=== PATIENT | female | born 1945 | race Caucasian/White ===

== ENCOUNTER → 2017-05-04 | Outpatient (CLI) | payer MEDICARE ==
--- NOTE | 2017-05-06 10:42 | P.ARTDOP ---
Arterial Doppler LOWER EXTREMITY ARTERIAL DOPPLER: DATE OF SERVICE: 05/04/2017 Reason for study: Type 2 diabetes with leg pain bilaterally. Doppler waveforms: Multiphasic bilaterally throughout. Pulse volume recording: Normal configuration. Pressure gradients: None. Ankle-brachial indices: Greater than 1 bilaterally. Toe pressures: 98 on the right, 100 on the left Impression: Normal study.
== END | disposition home or self-care (01) ==
LOC: RADUSWWP 12:47
PROVIDERS: ATTEND Family Medicine
DX: I70.223 Atherosclerosis of native arteries of extremities with rest pain, bilateral legs (principal)
CPT/HCPCS: 93923

== ENCOUNTER → 2017-05-07 | Outpatient (CLI) | payer MEDICARE ==
--- NOTE | 2017-05-07 10:56 | MM ---
Reason for exam: additional evaluation requested from prior study. Last mammogram was performed 11 months ago. History: Patient is postmenopausal, has history of other cancer at age 47, and has history of endometrial cancer at age 36. Benign cyst aspiration of the left breast. Physical Findings: Nurse did not find any significant physical abnormalities on exam. MG 3D Diag Mammo W/Cad [id number] Bilateral CC and MLO view(s) were taken. Prior study comparison: June 16, 2016, bilateral MG 3d diag mammo w/cad ABDIAZIZ. December 11, 2014, bilateral MG screening mammo w CAD. The breast tissue is almost entirely fat. Asymmetric breast tissue in the left breast. No significant new findings when compared with previous films. These results were verbally communicated with the patient and result sheet given to the patient on 05/07/17. ASSESSMENT: Benign, BI-RAD 2 RECOMMENDATION: Routine screening mammogram of both breasts in 1 year.
== END | disposition home or self-care (01) ==
LOC: RADMAMWWP 08:49
PROVIDERS: ATTEND Family Medicine
DX: R92.8 Other abnormal and inconclusive findings on diagnostic imaging of breast (principal)
CPT/HCPCS: G0204; G0279

== ENCOUNTER 2017-08-27 13:19 | Emergency (ER) | payer MEDICARE ==
[2017-08-27] MEDS ORDERED: SODIUM CHLORIDE 0.9% 500 ML IV ONE ×2 (13:42→16:17)
[2017-08-27] MEDS ORDERED: HYDROcodone/APAP 5-325MG 1 EACH TAB PO STA (13:55)
[2017-08-27 14:11] LABS: Basophils % (A) 0 %; CH 29.2; CHCM 32.5; Eosinophils % (A) 0 %; HCT 44.3 % (34.0-46.0); HDW 2.44; HGB 13.9 gm/dL (11.4-16.0); Luc % (Auto) 1; Lymphocytes # (A) 0.7 k/uL (1.0-4.8); Lymphocytes % (A) 7 %; MCH 28.5 pg (25.0-35.0); MCHC 31.5 g/dL (31.0-37.0); MCV 90.5 fL (80.0-100.0); Mean Platelet Volume 8.5; Monocytes # (A) 0.5 k/uL (0-1.0); Monocytes % (A) 5 %; Neutrophils # (A) 8.8 k/uL (1.3-7.7); Neutrophils % (A) 86 %; RBC 4.89 m/uL (3.80-5.40); RDW 14.2 % (11.5-15.5); WBC 10.3 k/uL (3.8-10.6); WBC (Perox) 10.67
[2017-08-27 14:20] LABS: ALT 29 U/L (9-52); AST 34 U/L (14-36); Alkaline Phosphatase 81 U/L (38-126); Anion Gap 17 mmol/L; Blood Urea Nitrogen 13 mg/dL (7-17); Calcium 9.6 mg/dL (8.4-10.2); Carbon Dioxide 22 mmol/L (22-30); Chloride 103 mmol/L (98-107); Glucose 260 mg/dL (74-99); Non-African American GFR(MDRD) >60 (>60 ml/min/1.73 sqM); Sodium 142 mmol/L (137-145); Total Bilirubin 1.3 mg/dL (0.2-1.3); Total Protein 7.1 g/dL (6.3-8.2)
--- NOTE | 2017-08-27 14:29 | ED ---
Fall HPI - General Chief Complaint: Fall Stated Complaint: fall Time Seen by Provider: 08/27/17 13:34 Source: patient, EMS Mode of arrival: EMS Limitations: physical limitation - History of Present Illness Initial Comments: This a 72-year-old female presents emergency from via EMS chief complaint fall. Patient states that she was coming out of her bathroom around 8:30 last night and states that she is unsure what happened. She states that she woke up on the ground and states that she cannot move. She states that she has been on the ground until a friend stopped by today. Patient states that she has low back pain, left hip pain. Patient denies headache, dizziness, chest pain or shortness breath this time. She states that she believes that she may have passed out. Patient denies any nausea, vomiting, diarrhea constipation. Denies any bowel or, bladder incontinence or retention - Related Data Home Medications Medication Instructions Recorded Confirmed oxyCODONE-APAP 10-325MG [Percocet 1 tab PO QID PRN 10/25/15 08/27/17 10-325 mg] Warfarin [Coumadin] 2 mg PO DAILY 05/26/16 08/27/17 ALPRAZolam [Xanax] 0.5 mg PO DAILY 08/27/17 08/27/17 Clotrimazole/Betameth Lotion 1 applic TOPICAL BID 08/27/17 08/27/17 [Lotrisone] Furosemide [Lasix] 20 mg PO DAILY 08/27/17 08/27/17 Insulin Degludec [Tresiba 100 unit SQ DAILY 08/27/17 08/27/17 Flextouch U-100] Lidocaine 2% Gel [Xylocaine Jelly 1 applic TOPICAL DAILY 08/27/17 08/27/17 2%] Potassium Chloride [K-Tab ER] 8 meq PO DAILY 08/27/17 08/27/17 hydrALAZINE HCL [Apresoline] 50 mg PO BID 08/27/17 08/27/17 sitaGLIPtin PHOSPHATE [Januvia] 100 mg PO DAILY 08/27/17 08/27/17 Previous Rx's Medication Instructions Recorded Metoprolol Succinate (ER) [Toprol 50 mg PO DAILY tab.er.24h 08/08/15 XL] Hydrocodone/Acetaminophen [[place] 1 tab PO Q6HR PRN #15 tab 08/27/17 5-325] Allergies Allergy/AdvReac Type Severity Reaction Status Date / Time nickel [Nickel] Allergy Rash/Hives Verified 08/27/17 15:19 vortioxetine hydrobromide Allergy Hallucinati Verified 08/27/17 15:19 [From Brintellix] ons adhesive tape AdvReac blister Verified 08/27/17 15:19 duloxetine HCl AdvReac Hallucinati Verified 08/27/17 15:19 [From Cymbalta] ons sertraline HCl [From Zoloft] AdvReac Hallucinati Verified 08/27/17 15:19 ons Review of Systems ROS Statement: Those systems with pertinent positive or pertinent negative responses have been documented in the HPI. ROS Other: All systems not noted in ROS Statement are negative. Past Medical History Past Medical History: CVA/TIA, Diabetes Mellitus Additional Past Medical History / Comment(s): CVAs- 2012 and 2014, NIDDM, recently diagnosed Factor VIII-was started on coumadin, thyroid cancer with removal, vertigo, peripheral neuropathy bilateral hands and feet, PVD, L/R heels -tx at the [facility] in the past., bowel obstructions x 2 with sx, chronic pain, urine incontinence at time, CURRENTLY USES WALKER History of Any Multi-Drug Resistant Organisms: VRE, VRE Date of last positivie culture/infection: 2008 MDRO Source:: RT KNEE Past Surgical History: Adenoidectomy, Bowel Resection, Cholecystectomy, Hysterectomy, Joint Replacement, Tonsillectomy Additional Past Surgical History / Comment(s): 10/26/15 suspension microlarygoscopy with benign bx, thyroidectomy, right TKA with revision a , left ankle surgery. 2 BOWEL SURGERIES, ORIF rt hip-07/2015, bilateral heel debridements, COLONOSCOPY Past Anesthesia/Blood Transfusion Reactions: Postoperative Nausea & Vomiting ( PONV) Additional Past Anesthesia/Blood Transfusion Reaction / Comment(s): Pt received blood after ORIF of the hip surgery Past Psychological History: Anxiety, Depression Smoking Status: Never smoker Past Alcohol Use History: None Reported Past Drug Use History: None Reported - Past Family History Father Family Medical History: Diabetes Mellitus Additional Family Medical History / Comment(s): Father is . Mother Family Medical History: Osteoarthritis (OA), Renal Disease Additional Family Medical History / Comment(s): Mother after kidney stone surgery and went to custodial. She was 90 yrs. old. Sister recently had a myocardial infarction. And may have early dementia. General Exam Limitations: no limitations General appearance: alert, in no apparent distress Head exam: Present: atraumatic, normocephalic, normal inspection Eye exam: Present: normal appearance, PERRL, EOMI. Absent: scleral icterus, conjunctival injection, periorbital swelling Neck exam: Present: normal inspection, full ROM. Absent: tenderness, meningismus, lymphadenopathy Respiratory exam: Present: normal lung sounds bilaterally. Absent: respiratory distress, wheezes, rales, rhonchi, stridor Cardiovascular Exam: Present: normal rhythm, tachycardia, normal heart sounds. Absent: systolic murmur, diastolic murmur, rubs, gallop, clicks GI/Abdominal exam: Present: soft, normal bowel sounds. Absent: distended, tenderness, guarding, rebound, rigid Extremities exam: Present: other (Tenderness to the left hip with mild discomfort with range of motion, there is no shortening or rotation, there is no tenderness to bilateral knees, lower legs. Pupils are equal bilaterally, upper extremities within normal limits) Back exam: Present: full ROM, tenderness (Moderate tenderness lumbar region), paraspinal tenderness, vertebral tenderness Neurological exam: Present: alert, oriented X3, CN II-XII intact, reflexes normal. Absent: motor sensory deficit Skin exam: Present: warm, dry, intact, normal color. Absent: rash Course Vital Signs 08/27/17 08/27/17 08/27/17 13:21 14:44 15:55 Temperature 98.2 F Pulse Rate 113 H 100 79 Respiratory 20 20 20 Rate Blood Pressure 164/88 167/90 161/88 O2 Sat by Pulse 97 97 98 Oximetry Medical Decision Making - Medical Decision Making 72-year-old female was in the emergency room for fall. Patient's labwork EKG analysis all reviewed essentially unremarkable. Patient is able to ambulate here in emergency department. She does live some discomfort because of the fall. Patient will be discharged with pain medication. Patient will follow-up with PCP and return parameters were discussed. Case discussed with Dr sellers - Lab Data Result diagrams: 08/27/17 13:00 08/27/17 13:00 Lab Results 08/27/17 08/27/17 08/27/17 Range/Units 13:00 13:00 13:00 WBC 10.3 (3.8-10.6) k/uL RBC 4.89 (3.80-5.40) m/uL Hgb 13.9 (11.4-16.0) gm/dL Hct 44.3 (34.0-46.0) % MCV 90.5 (80.0-100.0) fL MCH 28.5 (25.0-35.0) pg MCHC 31.5 (31.0-37.0) g/dL RDW 14.2 (11.5-15.5) % Plt Count 195 (150-450) k/uL Neutrophils % 86 % Lymphocytes % 7 % Monocytes % 5 % Eosinophils % 0 % Basophils % 0 % Neutrophils # 8.8 H (1.3-7.7) k/uL Lymphocytes # 0.7 L (1.0-4.8) k/uL Monocytes # 0.5 (0-1.0) k/uL Eosinophils # 0.0 (0-0.7) k/uL Basophils # 0.0 (0-0.2) k/uL Sodium 142 (137-145) mmol/L Potassium 4.0 (3.5-5.1) mmol/L Chloride 103 (98-107) mmol/L Carbon Dioxide 22 (22-30) mmol/L Anion Gap 17 mmol/L BUN 13 (7-17) mg/dL Creatinine 0.72 (0.52-1.04) mg/dL Est GFR (MDRD) Af Amer >60 (>60 ml/min/1.73 sqM) Est GFR (MDRD) Non-Af >60 (>60 ml/min/1.73 sqM) Glucose 260 H (74-99) mg/dL Calcium 9.6 (8.4-10.2) mg/dL Total Bilirubin 1.3 (0.2-1.3) mg/dL AST 34 (14-36) U/L ALT 29 (9-52) U/L Alkaline Phosphatase 81 (38-126) U/L Total Creatine Kinase (30-135) U/L CK-MB (CK-2) (0.0-2.4) ng/mL CK-MB (CK-2) Rel Index Troponin I <0.012 (0.000-0.034) ng/mL Total Protein 7.1 (6.3-8.2) g/dL Albumin 4.0 (3.5-5.0) g/dL Urine Color Urine Appearance (Clear) Urine pH (5.0-8.0) Ur Specific [place] (1.001-1.035) Urine Protein (Negative) Urine Glucose (UA) (Negative) Urine Blood (Negative) Urine Nitrite (Negative) Urine Bilirubin (Negative) Urine Urobilinogen (<2.0) mg/dL Ur Leukocyte Esterase (Negative) Urine RBC (0-5) /hpf Urine WBC (0-5) /hpf Ur Squamous Epith Cells (0-4) /hpf Urine Mucus (None) /hpf 08/27/17 08/27/17 Range/Units 13:00 15:15 WBC (3.8-10.6) k/uL RBC (3.80-5.40) m/uL Hgb (11.4-16.0) gm/dL Hct (34.0-46.0) % MCV (80.0-100.0) fL MCH (25.0-35.0) pg MCHC (31.0-37.0) g/dL RDW (11.5-15.5) % Plt Count (150-450) k/uL Neutrophils % % Lymphocytes % % Monocytes % % Eosinophils % % Basophils % % Neutrophils # (1.3-7.7) k/uL Lymphocytes # (1.0-4.8) k/uL Monocytes # (0-1.0) k/uL Eosinophils # (0-0.7) k/uL Basophils # (0-0.2) k/uL Sodium (137-145) mmol/L Potassium (3.5-5.1) mmol/L Chloride (98-107) mmol/L Carbon Dioxide (22-30) mmol/L Anion Gap mmol/L BUN (7-17) mg/dL Creatinine (0.52-1.04) mg/dL Est GFR (MDRD) Af Amer (>60 ml/min/1.73 sqM) Est GFR (MDRD) Non-Af (>60 ml/min/1.73 sqM) Glucose (74-99) mg/dL Calcium (8.4-10.2) mg/dL Total Bilirubin (0.2-1.3) mg/dL AST (14-36) U/L ALT (9-52) U/L Alkaline Phosphatase (38-126) U/L Total Creatine Kinase 522 H (30-135) U/L CK-MB (CK-2) 4.3 H* (0.0-2.4) ng/mL CK-MB (CK-2) Rel Index 0.8 Troponin I (0.000-0.034) ng/mL Total Protein (6.3-8.2) g/dL Albumin (3.5-5.0) g/dL Urine Color Yellow Urine Appearance Clear (Clear) Urine pH 5.5 (5.0-8.0) Ur Specific [place] 1.014 (1.001-1.035) Urine Protein 1+ H (Negative) Urine Glucose (UA) 4+ H (Negative) Urine Blood Moderate H (Negative) Urine Nitrite Negative (Negative) Urine Bilirubin Negative (Negative) Urine Urobilinogen <2.0 (<2.0) mg/dL Ur Leukocyte Esterase Trace H (Negative) Urine RBC <1 (0-5) /hpf Urine WBC 1 (0-5) /hpf Ur Squamous Epith Cells 2 (0-4) /hpf Urine Mucus Rare H (None) /hpf 08/27/17 14:29 EKG performed at 13:27/60 cart with a rate of 115, LA interval 168, QRS duration 76, QT/QTC 350/44 Disposition Clinical Impression: Fall, Contusion, hip, Back pain Disposition: HOME SELF-CARE Condition: Stable Instructions: Contusion in Adults (ED) Additional Instructions: Please return to the Emergency Department if symptoms worsen or any other concerns. Prescriptions: Hydrocodone/Acetaminophen [[place] 5-325] 1 tab PO Q6HR PRN #15 tab PRN Reason: Pain Referrals: Eloy Griffin MD [Primary Care Provider] - 1-2 days Time of Disposition: 16:11
--- NOTE | 2017-08-27 14:45 | XR ---
EXAMINATION TYPE: XR chest 2V DATE OF EXAM: 08/27/2017 COMPARISON: 03/03/16 HISTORY: Shortness of breath TECHNIQUE: Frontal and lateral views of the chest are obtained. FINDINGS: Scattered senescent parenchymal changes noted. Hyperinflation compatible with COPD. No evidence for infiltrate. No evidence for atelectasis. Heart size is stable. Mediastinal structures are stable and grossly unremarkable. No evidence for hilar prominence. Degenerative changes dorsal spine. IMPRESSION: 1. No evidence for acute pulmonary disease.
--- NOTE | 2017-08-27 14:47 | XR ---
EXAMINATION TYPE: XR lumbar spine 2 or 3V DATE OF EXAM: 08/27/2017 CLINICAL HISTORY: pain TECHNIQUE: Three views of the lumbar spine are submitted. COMPARISON: None. FINDINGS: There are 5 lumbar type vertebral bodies identified. The lumbar spine shows satisfactory alignment w ithout evidence of acute fracture or dislocation. Vertebral body heights are within normal Limits. degenerative disc space narrowing at L3-4, L4-5 and L5-S1. The overlying soft tissue appears unrema rkable. IMPRESSION: No acute fracture or dislocation is seen in the lumbar spine. ICD 10 NO FRACTURE, INITIAL EVALUATION
--- NOTE | 2017-08-27 14:50 | XR ---
EXAMINATION TYPE: XR Hip LT and AP Pelvis DATE OF EXAM: 08/27/2017 CLINICAL HISTORY: Pelvic and right hip pain. TECHNIQUE: A single AP view of the pelvis is obtained. Two views of the left hip are obtained. COMPARISON: None. FINDINGS: See evidence for acute fracture or dislocation. Mild degenerative joint space narrowing. Postoperativ e changes right hip. IMPRESSION: There is no acute fracture or dislocation in the pelvis or left hip.
[2017-08-27 15:18] LABS: Creatine Kinase MB 4.3 ng/mL (0.0-2.4)
[2017-08-27 15:43] LABS: Appearance,Urine Clear (Clear); Bilirubin,Urine Negative (Negative); Glucose,Urine (UA) 4+ (Negative); Leukocyte Esterase,Urine Trace (Negative); Mucus,Urine Rare /hpf; Nitrite,Urine Negative (Negative); PH, Urine 5.5 (5.0-8.0); Particle Count 2113; Protein,Urine 1+ (Negative); RBC,Urine <1 /hpf (0-5); Specific Gravity,Urine 1.014 (1.001-1.035); Squamous Epithelial Cell,Urine 2 /hpf (0-4); UA Billing (MACRO vs. MICRO) MICRO; Urobilinogen,Urine <2.0 mg/dL (<2.0); WBC,Urine 1 /hpf (0-5)
[2017-08-27 16:17] LABS: Ketones,Urine 4+ (Negative)
[2017-08-27] MEDS ORDERED: SODIUM CHLORIDE 0.9% 1,000 ML IV ONE (16:17)
[2017-08-27] MEDS ORDERED: HYDROcodone/APAP 10-325MG 1 EACH TAB PO ONE (16:20)
[2017-08-27 17:30] VITALS: BP 160/80; PULSE 70; RESP 18; TEMP 97.8
== END 2017-08-27 17:30 | disposition home or self-care (01) ==
LOC: EC 13:19
DX: S70.02XA Contusion of left hip, initial encounter (principal); R00.0 Tachycardia, unspecified; M54.5 Low back pain; E11.42 Type 2 diabetes mellitus with diabetic polyneuropathy; D66 Hereditary factor VIII deficiency; F32.9 Major depressive disorder, single episode, unspecified; F41.9 Anxiety disorder, unspecified; E89.0 Postprocedural hypothyroidism; Z79.01 Long term (current) use of anticoagulants; Z79.4 Long term (current) use of insulin; Z79.52 Long term (current) use of systemic steroids; Z79.899 Other long term (current) drug therapy; Z88.8 Allergy status to other drugs, medicaments and biological substances; Z91.09 Other allergy status, other than to drugs and biological substances; Z85.850 Personal history of malignant neoplasm of thyroid; Z86.73 Personal history of transient ischemic attack (TIA), and cerebral infarction without residual deficits; W19.XXXA Unspecified fall, initial encounter; Y93.89 Activity, other specified
CPT/HCPCS: 36415; 71020; 72100; 73502; 80053; 81001; 82550; 82553; 84484; 85025; 93005; 96360; 96361; 99284

== ENCOUNTER → 2017-11-05 | Outpatient (CLI) | payer MEDICARE ==
--- NOTE | 2017-11-05 22:37 | MR ---
MRI CERVICAL SPINE: CLINICAL HISTORY: Radiculopathy and cervical neuritis per order. Neck pain into left shoulder after f all injury 8 months ago per patient. TECHNIQUE: Multiplanar, multisequence imaging of the cervical spine is performed without IV contrast. COMPARISON: CT cervical spine August 03, 2015. FINDINGS: Sagittal images of the cervical spine show the craniocervical junction to appear within nor mal limits. The cervical and upper thoracic spinal cord is normal in course, caliber, and signal. V ertebral alignment is anatomic. The vertebral body heights are normal. There is mild to moderate di sc space narrowing at C5-C6 and C6-C7 levels. Posterior disc herniations are seen at C4-C5 through C6 -C7 levels on sagittal images. The bone marrow signal intensity is within normal limits. No significa nt spurring is seen. Axial images show C2-C3 and C3-C4 levels to appear within normal limits. Axial images at C4-C5 level show broad-based right paracentral disc protrusion mildly facing anterola teral thecal sac, bilateral neural foramina remain patent. Axial images at C5-C6 level shows broad-based right paracentral spur disc complex effacing the anteri or thecal sac, there is asymmetric mild to moderate left-sided neural foraminal narrowing. Right-side d neural foramen is patent. Axial images at C6-C7 level show central disc protrusion mildly facing anterior thecal sac, bilateral neural foramina are patent. Axial images at C7-T1 level are felt within normal limits. Thyroid gland is small in size or atrophic in appearance. It may be surgically absent. There is artif act from gas-filled prominent esophagus adjacent to trachea along the left margin at C7 level redemon strated. IMPRESSION: Fairly mild multilevel degenerative changes in the mid to lower cervical spine as detaile d above.
--- NOTE | 2017-11-05 22:41 | MR ---
EXAMINATION TYPE: MR shoulder LT wo con DATE OF EXAM: 11/05/2017 COMPARISON: NONE HISTORY: Neck pain and Left shoulder pain...Fell 8 weeks ago TECHNIQUE: Multiplanar, multisequence imaging of the left shoulder is performed without contrast. FINDINGS: Exam is suboptimal as is degraded by patient motion artifact. Rotator Cuff: There is significant partial tear probable full-thickness tear of supraspinatus tendon with tendon retraction roughly 1 cm seen on paracoronal images 9. Infraspinatus tendon is intact. Sub scapularis tendon is intact. Rotator cuff muscle bulk is preserved . Acromioclavicular Joint: Moderate spurring and joint space loss acromioclavicular joint is present. Underlying fat plane is maintained. Distal acromion morphology is unremarkable. Glenohumeral Joint: There is moderate glenohumeral joint effusion. There is joint space loss most pro minent inferiorly with mild inferior spurring. Labrum: The labrum appears grossly intact given limitation of non-arthrogram study. Biceps Tendon: The long head of biceps is in normal location within bicipital groove. Bone marrow signal: Heterogeneous changes consistent with red marrow reconversion is present. Other: No additional significant abnormality is appreciated. IMPRESSION: 1. Suboptimal study but full-thickness retracted tear supraspinatus tendon is felt present. 2. There is background moderate to borderline severe degenerative changes acromioclavicular and gleno humeral joints as detailed above.
== END | disposition home or self-care (01) ==
LOC: RADMRIMAIN 19:00
PROVIDERS: ATTEND Family Medicine
DX: S46.012A Strain of muscle(s) and tendon(s) of the rotator cuff of left shoulder, initial encounter (principal); M25.812 Other specified joint disorders, left shoulder; M47.22 Other spondylosis with radiculopathy, cervical region; M79.2 Neuralgia and neuritis, unspecified
CPT/HCPCS: 72141

== ENCOUNTER 2017-11-17 10:35 | Inpatient (IN) | payer MEDICARE ==
[2017-11-17 12:07] LABS: Glucose,Whole Blood 224 mg/dL (75-99)
--- NOTE | 2017-11-17 13:16 | XR ---
EXAMINATION TYPE: XR calcaneus 2V BILATERAL DATE OF EXAM: 11/17/2017 COMPARISON: NONE HISTORY: Osteomyelitis and bilateral heel pain. TECHNIQUE: Two-view bilateral calcaneal radiographs were obtained FINDINGS: Left: Atherosclerosis is seen of the dorsalis pedis and posterior tibial arteries and their branches. Small Achilles and plantar enthesophytes are present. Mild cortical irregularity at the ta lonavicular joint represents sequela of degenerative change. These similar changes are also seen at t he posterior tibiotalar joint. Focal soft tissue swelling is seen of the dorsal and plantar calcaneus without subcutaneous emphysema or cortical erosion. No soft tissue ulceration is seen radiographical ly. No radiopaque foreign body. No periosteal reaction. There is partial visualization of degenerativ e changes of the foot. Right: Similarly to the left small vessel atherosclerosis is also noted. Small plantar enthesophyte i s also seen. Similar degenerative changes of the tarsals, talonavicular joint and tibiotalar joint ar e present. As seen on the left there is focal soft tissue swelling of the plantar and dorsal soft tis sues overlying the calcaneus without cortical erosion or subcutaneous emphysema. No soft tissue ulcer ation is seen radiographically. No radiopaque foreign body. No periosteal reaction. IMPRESSION: 1. Bilateral localized soft tissue swelling of the dorsal and plantar soft tissues overlying the calc aneus without cortical erosion or periosteal reaction to suggest underlying osteomyelitis. No focal r adiographic skin ulceration or subcutaneous emphysema are seen. No radiopaque foreign body. 2. Bilateral small vessel atherosclerosis which may indicate peripheral arterial vascular disease. Ar terial lower sternum the ultrasound could be performed for further evaluation. 3. Moderate hindfoot and midfoot arthropathy bilaterally.
[2017-11-17 14:58] LABS: INR 1.4 (<1.2); Prothrombin Time 13.1 sec (9.0-12.0)
[2017-11-17] MEDS: oxyCODONE-APAP 10-325MG 1 EACH TAB PO PRN (15:15)
[2017-11-17] MEDS: FUROSEMIDE 20 MG TAB PO SCH (15:15)
[2017-11-17] MEDS: AMPICILLIN-SULBACTAM 1.5 GM in SODIUM CHLORIDE 0.9% 50 ML IVPB SCH (15:15)
[2017-11-17] MEDS: SODIUM CHLORIDE 0.9% 1,000 ML IV SCH (16:09)
[2017-11-17 16:56] LABS: Glucose,Whole Blood 306 mg/dL (75-99)
[2017-11-17] MEDS: HYDROmorphone 1 MG/ML 1 ML SYRINGE IVP PRN ×2 (17:44→21:41)
[2017-11-17] MEDS: INSULIN ASPART 100 UNIT/ML 1 ML 10 ML VIAL SQ SCH ×2 (17:45→21:40)
[2017-11-17] MEDS: WARFARIN 2 MG TAB PO SCH (17:47)
[2017-11-17 20:52] LABS: Glucose,Whole Blood 156 mg/dL (75-99)
[2017-11-17] MEDS: hydrALAZINE HCL 50 MG TAB PO SCH (21:40)
[2017-11-17 22:31] LABS: Hemoglobin A1C 10.2 % (4.0-6.0)
--- NOTE | 2017-11-17 23:41 | P.CONS ---
History of Present Illness - Reason for Consult Consult date: 11/17/17 - Chief Complaint Weakness and development of bilateral heel ulcers - History of Present Illness 72-year-old female was well-known to the service in the wound healing center due to nonhealing ulcerations to her heels have occurred. She relates that because the ulcerations were worsening to bilateral heels she then presented to Hospital. She was responsive significant changes in her psychosocial situation. Her sister had moved to [place] to be her cabin crew, moved back to [place] to see her grandchild. She suffered a stroke in the myocardial infarction and . She relates that several weeks ago she suffered a fall at home and did not have her communication device close and spent many hours on the floor with resultant injury to her right foot dorsum toe. She's been providing this care. Despite offloading her heels while she is in bed in the chair and not walking much she's now developed significant ulcerations to the heels. Right heel considerably worse than the left. When asked about pressure she just does not believe she's been putting pressure to the site. She is denying fevers chills rigors or sweats. Feels poorly overall. Review of Systems HEENT:Denies headache or acute visual change. Denies sinus or mouth discomforts. Denies neck stiffness or pain. Denies significant oral cavity pain. Denies difficulty on swallowing. Lungs: Denies significant shortness of breath, cough, sputum production, or hemoptysis. Cardiovascular: Denies significant shortness of breath, chest pain, chest wall pain, Feels very weak, and has no energy to walk any distance. Gastrointestinal:Denies nausea, vomiting, diarrhea, constipation, hematemesis, melena, hematochezia. No no significant change of bowel habit noticed. Musculoskeletal: denies significant myalgias or arthralgias. No new joint swelling. Denies new back pain. Skin: Bilateral heel ulcerations, as well as injury to the right foot second toe dorsum healing Neuro: Denies headache or visual change. Denies any new onset weakness or difficulty with ambulation. Denies falls or seizures. Psychiatric: Chronic anxiety Endocrine: Worsening fatigue and malaise Past Medical History Past Medical History: Blood Disorder, CVA/TIA, Diabetes Mellitus Additional Past Medical History / Comment(s): CVA-pt thinks in 2013 with L sided weakness, NIDDM type II, factor VIII-was started on coumadin, thyroid cancer with removal, vertigo, peripheral neuropathy bilateral hands and legs/ feet, PVD, recurrent L/R heels-tx at the wound healing Center in the past- pt states L heel "broke open" about 4 weeks ago and then R heel "broke open about 1.5 weeks ago and is worse than the left, past VRE infection R total knee, bowel obstructions x 2 with sx, chronic pain in back and legs/feet, urine incontinence at time, CURRENTLY USES WHEELCHAIR IN ORDER TO OFF LOAD HEELS. History of Any Multi-Drug Resistant Organisms: VRE, VRE Year Discovered:: 2008 MDRO Source:: RT KNEE Past Surgical History: Adenoidectomy, Appendectomy, Bowel Resection, Cholecystectomy, Hysterectomy, Joint Replacement, Tonsillectomy Additional Past Surgical History / Comment(s): 10/26/15 suspension microlarygoscopy with benign bx, thyroidectomy, right TKA with revision a , left ankle surgery WITH HARDWARE, 2 BOWEL SURGERIES, ORIF rt hip-07/2015, bilateral carpal tunnel releases, 1997 cardiac cath-normal, bilateral heel debridements, COLONOSCOPY, R flank "blood tumor" removed, bilateral cataract removals Past Anesthesia/Blood Transfusion Reactions: Postoperative Nausea & Vomiting ( PONV) Additional Past Anesthesia/Blood Transfusion Reaction / Comm: Pt received blood after ORIF of the hip surgery Smoking Status: Never smoker - Past Family History Father Family Medical History: Diabetes Mellitus Additional Family Medical History / Comment(s): Father is . Mother Family Medical History: Osteoarthritis (OA), Renal Disease Additional Family Medical History / Comment(s): Mother after kidney stone surgery and went to [facility]. She was 90 yrs. old. Medications and Allergies Home Medications and Allergies Comment(s): Current Medications Alprazolam (Xanax) 0.5 mg PO HS TITO Furosemide (Lasix) 20 mg PO DAILY TITO Last Admin: 11/17/17 15:15 Dose: 20 mg Hydralazine HCl (Apresoline) 50 mg PO BID TITO Last Admin: 11/17/17 21:40 Dose: 50 mg Hydromorphone HCl (Dilaudid) 1 mg IVP Q4HR PRN PRN Reason: Pain Last Admin: 11/17/17 21:41 Dose: 1 mg Ampicillin Sodium/Sulbactam (Sodium 1.5 gm/ Sodium Chloride) 50 mls @ 100 mls/ hr IVPB Q8HR [facility] Last Admin: 11/17/17 15:15 Dose: 100 mls/hr Sodium Chloride (Saline 0.9%) 1,000 mls @ 50 mls/hr IV .Q20H [facility] Last Admin: 11/17/17 16:09 Dose: 50 mls/hr Insulin Aspart (Novolog) 0 unit SQ ACHS [facility] PRN Reason: Protocol Last Admin: 11/17/17 21:40 Dose: 1 unit Levothyroxine Sodium (Synthroid) 200 mcg PO DAILY@0630 [facility] Linagliptin (Tradjenta) 5 mg PO DAILY [facility] Metoprolol Succinate (Toprol Xl) 50 mg PO DAILY [facility] Oxycodone/Acetaminophen (Percocet 10-325) 1 each PO QID PRN PRN Reason: Pain Last Admin: 11/17/17 15:15 Dose: 1 each Potassium Chloride (K-Dur 10) 10 meq PO DAILY [facility] Warfarin Sodium (Coumadin) 2 mg PO DAILY@1800 [facility] Last Admin: 11/17/17 17:47 Dose: 2 mg Home Medications Medication Instructions Recorded Confirmed Type Metoprolol Succinate (ER) [Toprol 50 mg PO DAILY tab.er.24h 08/08/15 11/17/17 Rx XL] oxyCODONE-APAP 10-325MG [Percocet 1 tab PO QID PRN 10/25/15 11/17/17 History 10-325 mg] ALPRAZolam [Xanax] 0.5 mg PO DAILY 08/27/17 11/17/17 History Clotrimazole/Betameth Lotion 1 applic TOPICAL BID 08/27/17 11/17/17 History [Lotrisone] Furosemide [Lasix] 20 mg PO DAILY 08/27/17 11/17/17 History Insulin Degludec [Tresiba 100 unit SQ DAILY 08/27/17 11/17/17 History Flextouch U-100] Lidocaine 2% Gel [Xylocaine Jelly 1 applic TOPICAL DAILY 08/27/17 11/17/17 History 2%] Potassium Chloride [K-Tab ER] 8 meq PO DAILY 08/27/17 11/17/17 History hydrALAZINE HCL [Apresoline] 50 mg PO BID 08/27/17 11/17/17 History sitaGLIPtin PHOSPHATE [Januvia] 100 mg PO DAILY 08/27/17 11/17/17 History Cephalexin [Keflex] 500 mg PO TID 11/17/17 11/17/17 History Levothyroxine Sodium [Synthroid] 200 mcg PO DAILY 11/17/17 11/17/17 History Warfarin [Coumadin] 2 mg PO DAILY 11/17/17 11/17/17 History Allergies Allergy/AdvReac Type Severity Reaction Status Date / Time nickel [Nickel] Allergy Rash/Hives Verified 11/17/17 12:06 vortioxetine hydrobromide Allergy Hallucinati Verified 11/17/17 12:06 [From Brintellix] ons adhesive tape AdvReac blister Verified 11/17/17 12:06 duloxetine HCl AdvReac Hallucinati Verified 11/17/17 12:06 [From Cymbalta] ons sertraline HCl [From Zoloft] AdvReac Hallucinati Verified 11/17/17 12:06 ons Physical Exam Vitals: Vital Signs Temp Pulse Resp BP Pulse Ox 11/17/17 23:24 98.1 F 90 17 109/64 97 11/17/17 21:45 78 20 107/68 96 11/17/17 15:00 97.6 F 92 16 109/65 98 11/17/17 11:50 97.1 F L 99 16 132/70 97 Intake and Output 11/17/17 11/17/17 11/18/17 14:59 22:59 06:59 Intake Total 480 Balance 480 Intake: Oral 480 Other: # Voids 2 3 Weight 89 kg Patient Weight 11/18/17 06:59 Weight 89 kg HEENT: Anicteric conjunctiva are pink and moist nasal mucosa grossly intact without significant lesions, there is no thrush. Neck: The neck is supple without significant lymphadenopathy or thyromegaly. Lungs: Good bilateral air entry without significant crackles or wheezing. There is no significant bronchial sounds. There is no egophony or dullness. Heart: Regular rate and rhythm with an audible S1-S2, no S3 no S4. There is no significant murmur click or rub, PMI was nondisplaced. Abdomen: Positive bowel sounds soft and nontender without palpable masses or organomegaly. There was no guarding or rebound. Extremities: Upper shoulders reveal evidence of no lesions. Current IV site is intact. Lower extremity reveal evidence of minimal edema. Left heel has evidence of ulceration as per the nursing photography of 2 x 2 by 0.1. Right heel is a more extensive ulceration of 4 x 4 x 0.2 cm. Patient has some neuropathy in the sites are not very tender. There is fat layer exposed to the right heel ulcer. Neuro: Awake alert oriented to person place and time. There are no acute new gross focal sensory motor deficits. Results Labs: Abnormal Lab Results - Last 24 Hours (Table) 11/17/17 11/17/17 11/17/17 Range/Units 12:05 12:11 12:11 ESR 23 H (0-20) mm/hr PT 13.1 H (9.0-12.0) sec INR 1.4 H (<1.2) POC Glucose (mg/dL) 224 H (75-99) mg/dL 11/17/17 11/17/17 Range/Units 16:53 20:50 ESR (0-20) mm/hr PT (9.0-12.0) sec INR (<1.2) POC Glucose (mg/dL) 306 H 156 H (75-99) mg/dL Laboratory Results ESR 23 mm/hr (0-20) H 11/17/17 12:11 PT 13.1 sec (9.0-12.0) H 11/17/17 12:11 INR 1.4 (<1.2) H 11/17/17 12:11 POC Glucose (mg/dL) 156 mg/dL (75-99) H 11/17/17 20:50 POC Glu [facility] Agent ID Justine Orellana 11/17/17 20:50 Assessment and Plan (1) Diabetic foot ulcer associated with type 2 diabetes mellitus Current Visit: No Status: Acute Priority: Medium Code(s): E11.621 - TYPE 2 DIABETES MELLITUS WITH FOOT ULCER SNOMED Code(s): 274252362 (2) Diabetic ulcer of left foot associated with type 2 diabetes mellitus, with fat layer exposed Narrative/Plan: 72-year-old female relates to a fall several weeks ago with resultant injury to the right foot second toe on the dorsum. Small eschar is noted and appears to be healing. Patient is unclear of how she developed a bilateral heel ulcerations, right consequently worsen the left. Is likely from pressure given the location and the appearance. She does wear some offloading boots at home. Concern that they are worn and not protecting her. She also has very poor control of her diabetes which may be also worsening this problem. We'll work with the discharge planners at discharge to ensure she has adequate offloading boots at home for when she is laying in bed. She does not do well with air boots. Pain control appears to be adequate. She is not having fever or leukocytosis at this time. Antimicrobial therapy with Unasyn is being given while cultures are process. Unclear if the discharge plan will be to extended-care or better home environment. Current Visit: Yes Status: Acute Code(s): E11.621 - TYPE 2 DIABETES MELLITUS WITH FOOT ULCER; L97.522 - NON-PRS CHRONIC ULCER OTH PRT LEFT FOOT W FAT LAYER EXPOSED SNOMED Code(s): 7404796465621
[2017-11-18] MEDS: AMPICILLIN-SULBACTAM 1.5 GM in SODIUM CHLORIDE 0.9% 50 ML IVPB SCH ×4 (01:02→23:18)
[2017-11-18] MEDS: HYDROmorphone 1 MG/ML 1 ML SYRINGE IVP PRN ×4 (02:59→21:44)
[2017-11-18] MEDS: LEVOTHYROXINE 100 MCG TAB PO SCH (06:16)
[2017-11-18 07:40] LABS: Glucose,Whole Blood 161 mg/dL (75-99)
[2017-11-18] MEDS: METOPROLOL SUCCINATE (ER) 50 MG TAB.ER.24H PO SCH (08:03)
[2017-11-18] MEDS: oxyCODONE-APAP 10-325MG 1 EACH TAB PO PRN ×2 (08:03→18:56)
[2017-11-18] MEDS: SODIUM CHLORIDE 0.9% 1,000 ML IV SCH (08:04)
[2017-11-18] MEDS: INSULIN ASPART 100 UNIT/ML 1 ML 10 ML VIAL SQ SCH ×4 (08:04→21:42)
[2017-11-18] MEDS: hydrALAZINE HCL 50 MG TAB PO SCH ×2 (08:05→21:48)
[2017-11-18] MEDS: POTASSIUM CHLORIDE ER 10 MEQ TAB.ER.PRT PO SCH (08:05)
[2017-11-18] MEDS: LINAGLIPTIN 5 MG TABLET PO SCH (08:05)
[2017-11-18] MEDS: FUROSEMIDE 20 MG TAB PO SCH (08:05)
[2017-11-18 09:30] LABS: Basophils % (A) 0 %; Eosinophils # (A) 0.2 k/uL (0-0.7); Eosinophils % (A) 4 %; HCT 36.5 % (34.0-46.0); HGB 11.4 gm/dL (11.4-16.0); Lymphocytes # (A) 1.8 k/uL (1.0-4.8); Lymphocytes % (A) 34 %; MCH 28.1 pg (25.0-35.0); MCHC 31.1 g/dL (31.0-37.0); MCV 90.3 fL (80.0-100.0); Mean Platelet Volume 7.8; Monocytes # (A) 0.3 k/uL (0-1.0); Monocytes % (A) 6 %; Neutrophils # (A) 2.9 k/uL (1.3-7.7); Neutrophils % (A) 54 %; Platelet Count 200 k/uL (150-450); RBC 4.04 m/uL (3.80-5.40); RDW 12.6 % (11.5-15.5); WBC 5.3 k/uL (3.8-10.6)
[2017-11-18 09:57] LABS: ALT 29 U/L (9-52); AST 17 U/L (14-36); Albumin 2.9 g/dL (3.5-5.0); Alkaline Phosphatase 69 U/L (38-126); Anion Gap 6 mmol/L; Blood Urea Nitrogen 27 mg/dL (7-17); Calcium 9.1 mg/dL (8.4-10.2); Carbon Dioxide 31 mmol/L (22-30); Chloride 101 mmol/L (98-107); Glucose 215 mg/dL (74-99); Potassium 4.2 mmol/L (3.5-5.1); Sodium 138 mmol/L (137-145); Total Bilirubin 0.4 mg/dL (0.2-1.3); Total Protein 5.8 g/dL (6.3-8.2)
[2017-11-18 12:12] LABS: Glucose,Whole Blood 230 mg/dL (75-99)
--- NOTE | 2017-11-18 13:23 | NM ---
EXAMINATION TYPE: NM bone 3 phase DATE OF EXAM: 11/18/2017 COMPARISON: Bilateral calcaneal x-rays from one day earlier. Three-phase bone scan June 08, 2014 HISTORY: Nonhealing wound bilateral heels, history of diabetes. Triple phase bone scintigraphy was performed following the injection of28.9 mCi Tc 99m MDP. Immediat e images and 5 hours post injection images acquired. FINDINGS: Dynamic arterial as well as soft tissue phase images show increased uptake bilateral hindfoot centere d at calcanei right greater than left. Soft tissue phase also shows increase uptake midfoot medial as pect not clearly identified on arterial phase. Delayed phased images show no significant increase upt abbi bilaterally at area of clinical concern in the calcanei. Mild uptake is not out of proportion to areas of uptake seen throughout both feet at forefoot and midfoot levels. There is focus of abnormal uptake near base of first metatarsal on the left which appears more medial to the area of soft tissue uptake. IMPRESSION: There is soft tissue infection involving bilateral heels. No convincing scintigraphic kiara dence for acute osteomyelitis in either foot.
--- NOTE | 2017-11-18 13:40 | XR ---
EXAMINATION TYPE: XR abdomen 2V DATE OF EXAM: 11/18/2017 CLINICAL HISTORY: Central abdominal pain with constipation TECHNIQUE: Supine and upright views of the abdomen are obtained. COMPARISON: Abdominal x-ray March 05, 2016. FINDINGS: Scattered gas is seen in non-distended small bowel loops. Gas and fecal material is seen in non-distended colon and rectum. Amount of fecal material is prominent in the right colon. Cholecys tectomy clips are seen. There is 6 mm round density near right 12th rib of uncertain etiology as appe ars to be medial to the upper portion of right kidney. Scattered pelvic phleboliths are seen. There a re surgical change to right proximal femur partially imaged. No pneumoperitoneum is noted. Visualized lung bases are clear. IMPRESSION: Overall nonobstructive bowel gas pattern. Perhaps mild to moderate proximal colonic feca l stasis redemonstrated.
--- NOTE | 2017-11-18 15:46 | P.GSCN ---
<Nimo Green - Last Filed: 11/18/17 15:37> History of Present Illness Consult date: 11/18/17 Reason for Consult: Abdominal pain constipation History of present illness: 72-year-old female being seen at the request of the attending for a surgical eval for abdominal pain patient reports for the past several months has been having generalized lower abdominal pain. States that she has a history of constipation. Patient states it can be several days before she has a bowel movement. Patient currently is denying abdominal pain when questioning. Patient is a poor historian gives a history of having an appendectomy 20-30 years prior with bowel surgery is not certain of the details. Reviewing medical records patient has had cholecystectomy, appendectomy, tonsillectomy, hysterectomy Currently patients being followed by infectious disease for ulcerations to the bilateral heels that are nonhealing and has been followed in the wound care center abdominal x-ray today which shows nonobstructive bowel gas pattern. 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 History of Any Multi-Drug Resistant Organisms: VRE, VRE Year Discovered:: 2008 MDRO Source:: RT KNEE Past Surgical History: Adenoidectomy, Appendectomy, Bowel Resection, Cholecystectomy, Hysterectomy, Joint Replacement, Tonsillectomy Additional Past Surgical History / Comment(s): 10/26/15 suspension microlarygoscopy with benign bx, thyroidectomy, right TKA with revision a , left ankle surgery WITH HARDWARE, 2 BOWEL SURGERIES, ORIF rt hip-07/2015, bilateral carpal tunnel releases, 1997 cardiac cath-normal, bilateral heel debridements, COLONOSCOPY, R flank "blood tumor" removed, bilateral cataract removals Past Anesthesia/Blood Transfusion Reactions: Postoperative Nausea & Vomiting ( PONV) Additional Past Anesthesia/Blood Transfusion Reaction / Comm: Pt received blood after ORIF of the hip surgery Smoking Status: Never smoker - Past Family History Father Family Medical History: Diabetes Mellitus Additional Family Medical History / Comment(s): Father is . Mother Family Medical History: Osteoarthritis (OA), Renal Disease Additional Family Medical History / Comment(s): Mother after kidney stone surgery and went to custodial. She was 90 yrs. old. Medications and Allergies Home Medications Medication Instructions Recorded Confirmed Type Metoprolol Succinate (ER) [Toprol 50 mg PO DAILY tab.er.24h 08/08/15 11/17/17 Rx XL] oxyCODONE-APAP 10-325MG [Percocet 1 tab PO QID PRN 10/25/15 11/17/17 History 10-325 mg] ALPRAZolam [Xanax] 0.5 mg PO DAILY 08/27/17 11/17/17 History Clotrimazole/Betameth Lotion 1 applic TOPICAL BID 08/27/17 11/17/17 History [Lotrisone] Furosemide [Lasix] 20 mg PO DAILY 08/27/17 11/17/17 History Insulin Degludec [Tresiba 100 unit SQ DAILY 08/27/17 11/17/17 History Flextouch U-100] Lidocaine 2% Gel [Xylocaine Jelly 1 applic TOPICAL DAILY 08/27/17 11/17/17 History 2%] Potassium Chloride [K-Tab ER] 8 meq PO DAILY 08/27/17 11/17/17 History hydrALAZINE HCL [Apresoline] 50 mg PO BID 08/27/17 11/17/17 History sitaGLIPtin PHOSPHATE [Januvia] 100 mg PO DAILY 08/27/17 11/17/17 History Cephalexin [Keflex] 500 mg PO TID 11/17/17 11/17/17 History Levothyroxine Sodium [Synthroid] 200 mcg PO DAILY 11/17/17 11/17/17 History Warfarin [Coumadin] 2 mg PO DAILY 11/17/17 11/17/17 History Allergies Allergy/AdvReac Type Severity Reaction Status Date / Time nickel [Nickel] Allergy Rash/Hives Verified 11/17/17 12:06 vortioxetine hydrobromide Allergy Hallucinati Verified 11/17/17 12:06 [From Brintellix] ons adhesive tape AdvReac blister Verified 11/17/17 12:06 duloxetine HCl AdvReac Hallucinati Verified 11/17/17 12:06 [From Cymbalta] ons sertraline HCl [From Zoloft] AdvReac Hallucinati Verified 11/17/17 12:06 ons Surgical - Exam Vital Signs Temp Pulse Resp BP Pulse Ox 97.1 F L 99 16 132/70 97 11/17/17 11:50 11/17/17 11:50 11/17/17 11:50 11/17/17 11:50 11/17/17 11:50 Physical exam 72-year-old female looking older than stated age currently sitting up taking a diet reports no nausea vomiting currently denying abdominal pain when questioning Lungs adequate air movement bilaterally no shortness of breath noted Heart S1-S2 audible regular Abdomen soft nondistended and bowel tones present no reports of nausea vomiting states had a bowel movement urinating no difficulty Extremities med boots on to the bilateral lower extremities Results - Labs 11/18/17 09:07 11/18/17 09:07 Abnormal Lab Results - Last 24 Hours (Table) 11/17/17 11/17/17 11/17/17 Range/Units 12:11 16:53 20:50 Carbon Dioxide (22-30) mmol/L BUN (7-17) mg/dL Glucose (74-99) mg/dL POC Glucose (mg/dL) 306 H 156 H (75-99) mg/dL Hemoglobin A1c 10.2 H (4.0-6.0) % Total Protein (6.3-8.2) g/dL Albumin (3.5-5.0) g/dL 11/18/17 11/18/17 11/18/17 Range/Units 07:35 09:07 12:02 Carbon Dioxide 31 H (22-30) mmol/L BUN 27 H (7-17) mg/dL Glucose 215 H (74-99) mg/dL POC Glucose (mg/dL) 161 H 230 H (75-99) mg/dL Hemoglobin A1c (4.0-6.0) % Total Protein 5.8 L (6.3-8.2) g/dL Albumin 2.9 L (3.5-5.0) g/dL Microbiology - Last 24 Hours (Table) 11/17/17 12:11 Blood Culture - Preliminary Blood No Growth after 24 hours Diabetes panel 11/17/17 11/18/17 Range/Units 12:11 09:07 Sodium 138 (137-145) mmol/L Potassium 4.2 (3.5-5.1) mmol/L Chloride 101 (98-107) mmol/L Carbon Dioxide 31 H (22-30) mmol/L BUN 27 H (7-17) mg/dL Creatinine 0.84 (0.52-1.04) mg/dL Glucose 215 H (74-99) mg/dL Hemoglobin A1c 10.2 H (4.0-6.0) % Calcium 9.1 (8.4-10.2) mg/dL AST 17 (14-36) U/L ALT 29 (9-52) U/L Alkaline Phosphatase 69 (38-126) U/L Total Protein 5.8 L (6.3-8.2) g/dL Albumin 2.9 L (3.5-5.0) g/dL Calcium panel 11/18/17 Range/Units 09:07 Calcium 9.1 (8.4-10.2) mg/dL Albumin 2.9 L (3.5-5.0) g/dL Pituitary panel 11/18/17 Range/Units 09:07 Sodium 138 (137-145) mmol/L Potassium 4.2 (3.5-5.1) mmol/L Chloride 101 (98-107) mmol/L Carbon Dioxide 31 H (22-30) mmol/L BUN 27 H (7-17) mg/dL Creatinine 0.84 (0.52-1.04) mg/dL Glucose 215 H (74-99) mg/dL Calcium 9.1 (8.4-10.2) mg/dL Adrenal panel 11/18/17 Range/Units 09:07 Sodium 138 (137-145) mmol/L Potassium 4.2 (3.5-5.1) mmol/L Chloride 101 (98-107) mmol/L Carbon Dioxide 31 H (22-30) mmol/L BUN 27 H (7-17) mg/dL Creatinine 0.84 (0.52-1.04) mg/dL Glucose 215 H (74-99) mg/dL Calcium 9.1 (8.4-10.2) mg/dL Total Bilirubin 0.4 (0.2-1.3) mg/dL AST 17 (14-36) U/L ALT 29 (9-52) U/L Alkaline Phosphatase 69 (38-126) U/L Total Protein 5.8 L (6.3-8.2) g/dL Albumin 2.9 L (3.5-5.0) g/dL Assessment and Plan Assessment: Impression Abdominal pain suspect due to diverticulosis Chronic constipation Debility limited mobility Abdominal x-ray shows moderate fecal stasis History of a prior CVA left side weakness Factor v111 on Coumadin Type 2 diabetes Diabetic foot ulcer associated with type 2 diabetes Plan No evidence of an acute surgical abdomen Start bowel stimulant regime Low fiber diet Will follow with you further surgical recommendations DVT and GI prophylaxis The above impression and plan of care have been discussed and directed by signing physician. Nimo Green nurse practitioner acting as scribe for signing physician. <Belinda Brambila - Last Filed: 11/18/17 21:09> Review of Systems REVIEW OF ORGAN SYSTEMS: CONSTITUTIONAL: Denies any fever or chills. Denies recent weight loss or weight gain. HEENT: Denies any trouble with vision, hearing or nosebleeds. No difficulty swallowing. LYMPHATIC: The patient denies any lumps and bumps around the neck. ENDOCRINE: Denies any thyroid disorders. Denies any blood sugar glucose intolerance. RESPIRATORY: Denies pneumonia. Denies any troubles with breathing or dyspnea on exertion. CARDIOVASCULAR: Denies any chest pain, palpitations, or recent heart attacks. GASTROINTESTINAL: Denies heart burn. Has chronic constipation. GENITOURINARY: Denies any blood in urine or increased urinary frequency. MUSCULOSKELETAL: Has back pain, stiffness, joint arthritis. History of osteomyelitis. NEUROLOGIC: Denies any numbness or tingling along the distal extremities. No seizure disorders or headaches. PSYCHIATRIC: Denies depression or suidical ideation. HEMATOLOGIC: Denies any abnormal bleeding or bruising. BREASTS: Denies any breast lumps, pain or nipple discharge. Surgical - Exam Vital Signs Temp Pulse Resp BP Pulse Ox 97.1 F L 99 16 132/70 97 11/17/17 11:50 11/17/17 11:50 11/17/17 11:50 11/17/17 11:50 11/17/17 11:50 GENERAL: Well developed and in no acute distress. Pleasant. HEENT: No sclera icterus. Extraocular movements grossly intact. Moist buccal mucosa. Head is atraumatic, normocephalic. Hears conversational speech. No nasal drainage. NECK: Supple without lymphadenopathy. CHEST: Non-labored respirations and equal bilateral excursions. CARDIOVASCULAR: Regular rate and rhythm. Palpable 2+ radial pulses. ABDOMEN: Soft, Nondistended. Tender along the bilateral lower abdomen. MUSCULOSKELETAL: No clubbing or edema. Kilobits present. NEUROLOGIC: No focal or lateralizing signs. PSYCH: Appropriate affect. Alert and oriented to person, place and time. SKIN: Good skin turgor. Well perfused. Results - Labs 11/18/17 09:07 11/18/17 09:07 Abnormal Lab Results - Last 24 Hours (Table) 11/17/17 11/18/17 11/18/17 Range/Units 12:11 07:35 09:07 PT (9.0-12.0) sec INR (<1.2) Carbon Dioxide 31 H (22-30) mmol/L BUN 27 H (7-17) mg/dL Glucose 215 H (74-99) mg/dL POC Glucose (mg/dL) 161 H (75-99) mg/dL Hemoglobin A1c 10.2 H (4.0-6.0) % Total Protein 5.8 L (6.3-8.2) g/dL Albumin 2.9 L (3.5-5.0) g/dL 11/18/17 11/18/17 11/18/17 Range/Units 12:02 17:14 18:17 PT 13.2 H (9.0-12.0) sec INR 1.4 H (<1.2) Carbon Dioxide (22-30) mmol/L BUN (7-17) mg/dL Glucose (74-99) mg/dL POC Glucose (mg/dL) 230 H 161 H (75-99) mg/dL Hemoglobin A1c (4.0-6.0) % Total Protein (6.3-8.2) g/dL Albumin (3.5-5.0) g/dL Microbiology - Last 24 Hours (Table) 11/17/17 12:11 Blood Culture - Preliminary Blood No Growth after 24 hours Diabetes panel 11/17/17 11/18/17 Range/Units 12:11 09:07 Sodium 138 (137-145) mmol/L Potassium 4.2 (3.5-5.1) mmol/L Chloride 101 (98-107) mmol/L Carbon Dioxide 31 H (22-30) mmol/L BUN 27 H (7-17) mg/dL Creatinine 0.84 (0.52-1.04) mg/dL Glucose 215 H (74-99) mg/dL Hemoglobin A1c 10.2 H (4.0-6.0) % Calcium 9.1 (8.4-10.2) mg/dL AST 17 (14-36) U/L ALT 29 (9-52) U/L Alkaline Phosphatase 69 (38-126) U/L Total Protein 5.8 L (6.3-8.2) g/dL Albumin 2.9 L (3.5-5.0) g/dL Calcium panel 11/18/17 Range/Units 09:07 Calcium 9.1 (8.4-10.2) mg/dL Albumin 2.9 L (3.5-5.0) g/dL Pituitary panel 11/18/17 Range/Units 09:07 Sodium 138 (137-145) mmol/L Potassium 4.2 (3.5-5.1) mmol/L Chloride 101 (98-107) mmol/L Carbon Dioxide 31 H (22-30) mmol/L BUN 27 H (7-17) mg/dL Creatinine 0.84 (0.52-1.04) mg/dL Glucose 215 H (74-99) mg/dL Calcium 9.1 (8.4-10.2) mg/dL Adrenal panel 11/18/17 Range/Units 09:07 Sodium 138 (137-145) mmol/L Potassium 4.2 (3.5-5.1) mmol/L Chloride 101 (98-107) mmol/L Carbon Dioxide 31 H (22-30) mmol/L BUN 27 H (7-17) mg/dL Creatinine 0.84 (0.52-1.04) mg/dL Glucose 215 H (74-99) mg/dL Calcium 9.1 (8.4-10.2) mg/dL Total Bilirubin 0.4 (0.2-1.3) mg/dL AST 17 (14-36) U/L ALT 29 (9-52) U/L Alkaline Phosphatase 69 (38-126) U/L Total Protein 5.8 L (6.3-8.2) g/dL Albumin 2.9 L (3.5-5.0) g/dL - Imaging Abdominal x-ray: report reviewed, image reviewed CT scan - abdomen: image reviewed CT scan - pelvis: image reviewed (Findings are consistent with moderate fecal bolus and potential impactions rectum. No signs of bowel obstruction I personally reviewed her films) Assessment and Plan (1) Bilateral lower abdominal pain Current Visit: Yes Status: Acute Code(s): R10.31 - RIGHT LOWER QUADRANT PAIN ; R10.32 - LEFT LOWER QUADRANT PAIN SNOMED Code(s): 93393086 (2) Chronic constipation Current Visit: Yes Status: Acute Code(s): K59.09 - OTHER CONSTIPATION SNOMED Code(s): 447697804 (3) Osteomyelitis of right foot Current Visit: No Status: Acute Code(s): M86.9 - OSTEOMYELITIS, UNSPECIFIED SNOMED Code(s): 2828459023366918 Plan: 1. Review of her history, she reports having multiple abdominal surgeries in the past for perforated appendix and perforated colon. These findings may have been from prior diverticulitis attacks. I have recommended a CT of the abdomen and pelvis. Separately, she has been able to tolerate regular diet. 2. No acute surgical intervention at this time. 3. Her computed tomography scan was reviewed consistent with a rectal impaction. Recommend enemas. 4. Recommend bowel regimen. Time with Patient: Greater than 30
[2017-11-18] MEDS ORDERED: BISACODYL 5 MG TABLET.DR PO PRN (15:47)
[2017-11-18] MEDS ORDERED: RX INFO: IV CONTRAST WAS GIVEN 1 EACH MISC MISCELLANE PRN (17:00)
[2017-11-18 17:47] LABS: Glucose,Whole Blood 161 mg/dL (75-99)
[2017-11-18 18:37] LABS: INR 1.4 (<1.2); Prothrombin Time 13.2 sec (9.0-12.0)
[2017-11-18] MEDS: IOHEXOL 350 MG/ML 25 ML BOTTLE (ORAL USE) PO PRN ×2 (18:47→20:02)
[2017-11-18] MEDS: WARFARIN 2 MG TAB PO SCH (18:57)
--- NOTE | 2017-11-18 21:05 | CT ---
EXAMINATION TYPE: CT abdomen pelvis w con DATE OF EXAM: 11/18/2017 COMPARISON: 03/19/2011 HISTORY: Mid to lower abdominal pain. CT DLP: 1748 mGycm Automated exposure control for dose reduction was used. TECHNIQUE: Helical acquisition of images was performed from the lung bases through the pelvis. CONTRAST: Performed with Oral Contrast and with IV Contrast, patient injected with 100 mL of Omnipaque 300. FINDINGS: Lung bases are clear. There is no pleural effusion. Heart size is normal. There are clips from cholecystectomy. Bile ducts are not dilated. I see no focal liver defect. Spleen and pancreas appear normal. There is no adrenal mass. There are small bilateral renal cortical cysts. There is no hydronephrosis. There is no retroperitoneal adenopathy. There is no ascites. There is some retained fecal material i n the rectum. Bladder distends smoothly. There is a right hip nailing. I see no intestinal wall thick ening. There are no dilated loops. There are spondylotic changes in the lumbar spine.: IMPRESSION: CHOLECYSTECTOMY. NO DILATED DUCTS. SMALL RENAL CYSTS. MILD CONSTIPATION. NO ADVERSE CHANGE COMPARED TO OLD EXAM.
[2017-11-18 21:08] LABS: Glucose,Whole Blood 200 mg/dL (75-99)
[2017-11-18] MEDS: SENNOSIDES 8.6 MG TAB PO SCH (21:28)
[2017-11-18] MEDS ORDERED: MAGNESIUM HYDROXIDE 2,400 MG/10 ML CUP PO ONE (21:30)
[2017-11-18] MEDS: ALPRAZolam 0.5 MG TAB PO SCH (21:42)
[2017-11-18] MEDS: POLYETHYLENE GLYCOL 3350 17 GM POWD.PACK PO SCH (21:43)
--- NOTE | 2017-11-18 23:44 | P.PN ---
Subjective Progress Note Date: 11/18/17 Principal diagnosis: Weakness 72-year-old female was well-known to the service in the wound healing center due to nonhealing ulcerations to her heels have occurred. She relates that because the ulcerations were worsening to bilateral heels she then presented to Hospital. She was responsive significant changes in her psychosocial situation. Her sister had moved to [place] to be her greige goods examiner, moved back to [place] to see her grandchild. She suffered a stroke in the myocardial infarction and . She relates that several weeks ago she suffered a fall at home and did not have her communication device close and spent many hours on the floor with resultant injury to her right foot dorsum toe. She's been providing this care. Despite offloading her heels while she is in bed in the chair and not walking much she's now developed significant ulcerations to the heels. Right heel considerably worse than the left. When asked about pressure she just does not believe she's been putting pressure to the site. She is denying fevers chills rigors or sweats. Feels poorly overall. Into the room and the patient does have new foam padded heel protectors. They' re not in place. She's laying in bed with her legs crossed with the heel directly on the mattress. Upon asking her if she sees any difficulty she was not able to articulate the fact that she was not offloading her heels. Objective - Vital Signs Vital signs: Vital Signs Temp 97.6 F 11/18/17 22:55 Pulse 86 11/18/17 22:55 Resp 18 11/18/17 22:55 BP 109/72 11/18/17 22:55 Pulse Ox 97 11/18/17 22:55 Intake & Output 11/18/17 11/18/17 11/19/17 06:59 18:59 06:59 Intake Total 480 Balance 480 Weight 89 kg Intake: Oral 480 Other: Voiding Method Bedside Commode # Voids 4 2 2 # Bowel Movements 0 - Exam HEENT: Anicteric conjunctiva are pink and moist nasal mucosa grossly intact without significant lesions, there is no thrush. Neck: The neck is supple without significant lymphadenopathy or thyromegaly. Lungs: Good bilateral air entry without significant crackles or wheezing. There is no significant bronchial sounds. There is no egophony or dullness. Heart: Regular rate and rhythm with an audible S1-S2, no S3 no S4. There is no significant murmur click or rub, PMI was nondisplaced. Abdomen: Positive bowel sounds soft and nontender without palpable masses or organomegaly. There was no guarding or rebound. Extremities: Upper shoulders reveal evidence of no lesions. Current IV site is intact. Lower extremity reveal evidence of minimal edema. Left heel has evidence of ulceration as per the nursing photography of 2 x 2 by 0.1. Right heel is a more extensive ulceration of 4 x 4 x 0.2 cm. Patient has some neuropathy in the sites are not very tender. There is fat layer exposed to the right heel ulcer. Neuro: Awake alert oriented to person place and time. There are no acute new gross focal sensory motor deficits. - Labs CBC & Chem 7: 11/18/17 09:07 11/18/17 09:07 Labs: Abnormal Lab Results - Last 24 Hours (Table) 11/17/17 11/18/17 11/18/17 Range/Units 12:11 07:35 09:07 PT (9.0-12.0) sec INR (<1.2) Carbon Dioxide 31 H (22-30) mmol/L BUN 27 H (7-17) mg/dL Glucose 215 H (74-99) mg/dL POC Glucose (mg/dL) 161 H (75-99) mg/dL Hemoglobin A1c 10.2 H (4.0-6.0) % Total Protein 5.8 L (6.3-8.2) g/dL Albumin 2.9 L (3.5-5.0) g/dL 11/18/17 11/18/17 11/18/17 Range/Units 12:02 17:14 18:17 PT 13.2 H (9.0-12.0) sec INR 1.4 H (<1.2) Carbon Dioxide (22-30) mmol/L BUN (7-17) mg/dL Glucose (74-99) mg/dL POC Glucose (mg/dL) 230 H 161 H (75-99) mg/dL Hemoglobin A1c (4.0-6.0) % Total Protein (6.3-8.2) g/dL Albumin (3.5-5.0) g/dL 11/18/17 Range/Units 21:06 PT (9.0-12.0) sec INR (<1.2) Carbon Dioxide (22-30) mmol/L BUN (7-17) mg/dL Glucose (74-99) mg/dL POC Glucose (mg/dL) 200 H (75-99) mg/dL Hemoglobin A1c (4.0-6.0) % Total Protein (6.3-8.2) g/dL Albumin (3.5-5.0) g/dL Microbiology - Last 24 Hours (Table) 11/17/17 12:11 Blood Culture - Preliminary Blood No Growth after 24 hours Laboratory Results WBC 5.3 k/uL (3.8-10.6) 11/18/17 09:07 RBC 4.04 m/uL (3.80-5.40) 11/18/17 09:07 Hgb 11.4 gm/dL (11.4-16.0) 11/18/17 09:07 Hct 36.5 % (34.0-46.0) 11/18/17 09:07 MCV 90.3 fL (80.0-100.0) 11/18/17 09:07 MCH 28.1 pg (25.0-35.0) 11/18/17 09:07 MCHC 31.1 g/dL (31.0-37.0) 11/18/17 09:07 RDW 12.6 % (11.5-15.5) 11/18/17 09:07 Plt Count 200 k/uL (150-450) 11/18/17 09:07 Neutrophils % 54 % 11/18/17 09:07 Lymphocytes % 34 % 11/18/17 09:07 Monocytes % 6 % 11/18/17 09:07 Eosinophils % 4 % 11/18/17 09:07 Basophils % 0 % 11/18/17 09:07 Neutrophils # 2.9 k/uL (1.3-7.7) 11/18/17 09:07 Lymphocytes # 1.8 k/uL (1.0-4.8) 11/18/17 09:07 Monocytes # 0.3 k/uL (0-1.0) 11/18/17 09:07 Eosinophils # 0.2 k/uL (0-0.7) 11/18/17 09:07 Basophils # 0.0 k/uL (0-0.2) 11/18/17 09:07 ESR 23 mm/hr (0-20) H 11/17/17 12:11 PT 13.2 sec (9.0-12.0) H 11/18/17 18:17 INR 1.4 (<1.2) H 11/18/17 18:17 Sodium 138 mmol/L (137-145) 11/18/17 09:07 Potassium 4.2 mmol/L (3.5-5.1) 11/18/17 09:07 Chloride 101 mmol/L (98-107) 11/18/17 09:07 Carbon Dioxide 31 mmol/L (22-30) H 11/18/17 09:07 Anion Gap 6 mmol/L 11/18/17 09:07 BUN 27 mg/dL (7-17) H 11/18/17 09:07 Creatinine 0.84 mg/dL (0.52-1.04) 11/18/17 09:07 Est GFR (MDRD) Af Amer >60 (>60 ml/min/1.73 sqM) 11/18/17 09:07 Est GFR (MDRD) Non-Af >60 (>60 ml/min/1.73 sqM) 11/18/17 09:07 Glucose 215 mg/dL (74-99) H 11/18/17 09:07 POC Glucose (mg/dL) 200 mg/dL (75-99) H 11/18/17 21:06 POC Glu Welding Specialist Justine Chaparro 11/18/17 21:[address] Glu mg/dL 246 11/17/17 12:11 Hemoglobin A1c 10.2 % (4.0-6.0) H 11/17/17 12:11 Calcium 9.1 mg/dL (8.4-10.2) 11/18/17 09:07 Total Bilirubin 0.4 mg/dL (0.2-1.3) 11/18/17 09:07 AST 17 U/L (14-36) 11/18/17 09:07 ALT 29 U/L (9-52) 11/18/17 09:07 Alkaline Phosphatase 69 U/L (38-126) 11/18/17 09:07 Total Protein 5.8 g/dL (6.3-8.2) L 11/18/17 09:07 Albumin 2.9 g/dL (3.5-5.0) L 11/18/17 09:07 Microbiology 11/17/17 12:11 Blood Blood Culture - Preliminary No Growth after 24 hours Assessment and Plan (1) Diabetic foot ulcer associated with type 2 diabetes mellitus Current Visit: No Status: Acute Priority: Medium Code(s): E11.621 - TYPE 2 DIABETES MELLITUS WITH FOOT ULCER SNOMED Code(s): 269000961 (2) Diabetic ulcer of left foot associated with type 2 diabetes mellitus, with fat layer exposed Narrative/Plan: 72-year-old female relates to a fall several weeks ago with resultant injury to the right foot second toe on the dorsum. Small eschar is noted and appears to be healing. Patient is unclear of how she developed a bilateral heel ulcerations, right consequently worsen the left. Is likely from pressure given the location and the appearance. She does wear some offloading boots at home. Concern that they are worn and not protecting her. She also has very poor control of her diabetes which may be also worsening this problem. We'll work with the discharge planners at discharge to ensure she has adequate offloading boots at home for when she is laying in bed. She does not do well with air boots. Pain control appears to be adequate. She is not having fever or leukocytosis at this time. Antimicrobial therapy with Unasyn is being given while cultures are process. Unclear if the discharge plan will be to extended-care or better home environment. It is noted the patient has a very little understanding about offloading despite being adamant that she's been offloading her heels at home. The bone scan is negative underlying osteomyelitis. We'll not need outpatient intravenous antibiotic therapy. However will require wound care and likely some antibiotic therapy based on the cultures. Patient was having abdominal pain appears been the basis of some constipation. Computed tomography scan without other abnormalities. Current Visit: Yes Status: Acute Code(s): E11.621 - TYPE 2 DIABETES MELLITUS WITH FOOT ULCER; L97.522 - NON-PRS CHRONIC ULCER OTH PRT LEFT FOOT W FAT LAYER EXPOSED SNOMED Code(s): 7406143761934
[2017-11-19] MEDS: HYDROmorphone 1 MG/ML 1 ML SYRINGE IVP PRN ×2 (02:26→08:48)
--- NOTE | 2017-11-19 05:50 | HP ---
HISTORY AND PHYSICAL CHIEF COMPLAINT: A 72-year-old white female admitted with osteomyelitis to the right heel and left heel, greatest in the right heel, insulin-dependent diabetes mellitus, acute abdominal pain, hypertension, started on IV Unasyn. Infectious Disease consult was ordered. Has got a bone scan pending. Remains on IV Unasyn. Complains of more abdominal pain today at which time x-rays of the abdomen ordered and surgical consult. MEDICAL HISTORY: Insulin-dependent diabetes mellitus, severe osteoarthritis, degenerative disc disease, rotator cuff tear, hypertension, history of osteomyelitis. MEDICATIONS: See list. REVIEW OF SYSTEMS: Fourteen-point review of systems negative except for as mentioned in HPI. PHYSICAL EXAM: A 72-year-old white female, in no acute distress. Vital signs are reviewed. CARDIOVASCULAR: S1, S2. LUNGS: Transmitted upper airway sounds. HEMATOLOGY: Negative Homans. GI: Diffuse tenderness, diffuse across the abdominal wall. NEUROLOGIC: Alert and oriented x3. INTEGUMENT: Shows 3 x 3 inch red inflamed ulcerated area on the right heel with blistering formation. ASSESSMENT: 1. Insulin-dependent diabetes mellitus. 2. Diabetic wound infection to the heels, possible osteomyelitis of the heels. 3. Acute abdominal pain. 4. Hypertension. 5. Diabetes mellitus. 6. Dementia. 7. Osteoarthritis. 8. Degenerative disc disease. Continue current treatments. Please see further orders in the chart. MMODL / IJN: [id number] /
[2017-11-19] MEDS: SODIUM CHLORIDE 0.9% 1,000 ML IV SCH ×2 (06:34→08:57)
[2017-11-19] MEDS: LEVOTHYROXINE 100 MCG TAB PO SCH (06:35)
[2017-11-19 07:51] LABS: Glucose,Whole Blood 165 mg/dL (75-99)
[2017-11-19] MEDS: AMPICILLIN-SULBACTAM 1.5 GM in SODIUM CHLORIDE 0.9% 50 ML IVPB SCH ×3 (08:42→23:50)
[2017-11-19] MEDS: METOPROLOL SUCCINATE (ER) 50 MG TAB.ER.24H PO SCH (08:42)
[2017-11-19] MEDS: hydrALAZINE HCL 50 MG TAB PO SCH ×2 (08:43→20:50)
[2017-11-19] MEDS: LINAGLIPTIN 5 MG TABLET PO SCH (08:43)
[2017-11-19] MEDS: POTASSIUM CHLORIDE ER 10 MEQ TAB.ER.PRT PO SCH (08:44)
[2017-11-19] MEDS: INSULIN ASPART 100 UNIT/ML 1 ML 10 ML VIAL SQ SCH ×4 (08:48→21:49)
[2017-11-19] MEDS: FUROSEMIDE 20 MG TAB PO SCH (08:51)
[2017-11-19 08:53] LABS: INR 1.4 (<1.2); Prothrombin Time 13.4 sec (9.0-12.0)
[2017-11-19] MEDS: SENNOSIDES 8.6 MG TAB PO SCH ×2 (08:57→20:51)
[2017-11-19] MEDS ORDERED: POLYETHYLENE GLYCOL 3350 17 GM POWD.PACK PO SCH (09:00)
[2017-11-19] MEDS ORDERED: HYDROmorphone 1 MG/ML 1 ML SYRINGE IVP PRN (10:19)
--- NOTE | 2017-11-19 10:44 | P.PN ---
Subjective Progress Note Date: 11/19/17 72-year-old female seen and examined resting in bed nursing reports patient initially did not want to have the soapsuds enema that was ordered for fecal impaction. Did discuss with the patient recommendations to be placed on a bowel regime due to patient's chronic constipation. Patient has agreed to have a soapsuds enema will start MiraLAX and Senokot as ordered patient reports less abdominal pain CAT scan of the abdomen consistent with rectal impactions Objective - Vital Signs Vital signs: Vital Signs Temp 96.8 F L 11/19/17 07:00 Pulse 77 11/19/17 07:00 Resp 17 11/19/17 07:00 BP 119/59 11/19/17 07:00 Pulse Ox 97 11/19/17 07:00 Intake & Output 11/18/17 11/19/17 11/19/17 18:59 06:59 18:59 Intake Total 480 Output Total 250 Balance 480 -250 Weight 89 kg Intake: Oral 480 Output: Urine 250 Other: Voiding Method Bedside Commode # Voids 2 3 # Bowel Movements 0 - Exam exam 72-year-old female resting in bed appears in no acute distress Lungs adequate air movement bilaterally no wheezing rail rhonchi Heart S1-S2 audible regular Abdomen obese soft nontender states abdominal pain has improved resolved no stool urinating no difficulty Extremities no edema noted - Labs CBC & Chem 7: 11/18/17 09:07 11/18/17 09:07 Labs: Abnormal Lab Results - Last 24 Hours (Table) 11/18/17 11/18/17 11/18/17 Range/Units 12:02 17:14 18:17 PT 13.2 H (9.0-12.0) sec INR 1.4 H (<1.2) POC Glucose (mg/dL) 230 H 161 H (75-99) mg/dL 11/18/17 11/19/17 11/19/17 Range/Units 21:06 07:49 08:24 PT 13.4 H (9.0-12.0) sec INR 1.4 H (<1.2) POC Glucose (mg/dL) 200 H 165 H (75-99) mg/dL Microbiology - Last 24 Hours (Table) 11/17/17 12:11 Blood Culture - Preliminary Blood No Growth after 24 hours Assessment and Plan Assessment: Impression Abdominal pain suspect due to moderate fecal impaction Chronic constipation opiate-induced Debility limited mobility Abdominal x-ray shows moderate fecal stasis History of a prior CVA left side weakness Factor v111 on Coumadin Type 2 diabetes Diabetic foot ulcer associated with type 2 diabetes Osteomyelitis of the right foot present on admission Plan No evidence of an acute surgical abdomen Start bowel stimulant regime Low fiber diet Will follow with you further surgical recommendations DVT and GI prophylaxis enema as ordered Dr. flora fernandes on behalf of Dr. Brambila The above impression and plan of care have been discussed and directed by signing physician. Nimo Green nurse practitioner acting as scribe for signing physician.
[2017-11-19 12:19] LABS: Glucose,Whole Blood 270 mg/dL (75-99)
[2017-11-19] MEDS: oxyCODONE-APAP 10-325MG 1 EACH TAB PO PRN (15:00)
[2017-11-19 17:58] LABS: Glucose,Whole Blood 235 mg/dL (75-99)
[2017-11-19] MEDS: WARFARIN 2 MG TAB PO SCH (18:14)
[2017-11-19] MEDS: FAMOTIDINE 20 MG TAB PO SCH (20:50)
[2017-11-19] MEDS: ALPRAZolam 0.5 MG TAB PO SCH (20:50)
[2017-11-19] MEDS: POLYETHYLENE GLYCOL 3350 17 GM POWD.PACK PO SCH (20:51)
[2017-11-19 21:14] LABS: Glucose,Whole Blood 234 mg/dL (75-99)
--- NOTE | 2017-11-19 23:00 | PN ---
PROGRESS NOTE SUBJECTIVE: This is a white female, admitted with osteomyelitis of the heel, insulin-dependent diabetes mellitus, acute abdominal pain, hypertension. She has been seen by Surgery and cleared. We are waiting to see if the bone infection is all the way into her heel. Debridement is being needed. Dr. Varela has seen and remains on broad-spectrum antibiotics. Diabetes is under fairly good control of the sugars. PHYSICAL EXAMINATION: Vital signs stable, afebrile. Cardiovascular S1, S2. Lungs transmitted upper airway sounds. GI soft. Hematology negative Homans. Heels are wrapped in bandages. ASSESSMENT: 1. Osteomyelitis of the heels. 2. Insulin-dependent diabetes mellitus. 3. Acute abdominal pain. 4. Hypertension. PLAN: Awaiting Dr. Varela' recommendations for long-term antibiotics. Awaiting bone scan results to see if there is osteomyelitis involved in the heels. MMODL / IJN: [id number] /
[2017-11-20] MEDS: oxyCODONE-APAP 10-325MG 1 EACH TAB PO PRN ×3 (03:38→18:22)
[2017-11-20] MEDS: LEVOTHYROXINE 100 MCG TAB PO SCH (06:29)
[2017-11-20 07:43] LABS: Glucose,Whole Blood 186 mg/dL (75-99)
[2017-11-20] MEDS ORDERED: HYDROmorphone 4 MG/ML 1 ML SYRINGE IVP PRN (08:08)
[2017-11-20 08:13] LABS: INR 1.4 (<1.2); Prothrombin Time 13.4 sec (9.0-12.0)
[2017-11-20] MEDS: AMPICILLIN-SULBACTAM 1.5 GM in SODIUM CHLORIDE 0.9% 50 ML IVPB SCH ×2 (09:10→16:05)
[2017-11-20] MEDS: INSULIN ASPART 100 UNIT/ML 1 ML 10 ML VIAL SQ SCH ×4 (09:10→20:55)
[2017-11-20] MEDS: hydrALAZINE HCL 50 MG TAB PO SCH ×2 (09:14→20:49)
[2017-11-20] MEDS: SENNOSIDES 8.6 MG TAB PO SCH ×2 (09:14→20:49)
[2017-11-20] MEDS: METOPROLOL SUCCINATE (ER) 50 MG TAB.ER.24H PO SCH (09:14)
[2017-11-20] MEDS: FUROSEMIDE 20 MG TAB PO SCH (09:15)
[2017-11-20] MEDS: POTASSIUM CHLORIDE ER 10 MEQ TAB.ER.PRT PO SCH (09:15)
[2017-11-20] MEDS: LINAGLIPTIN 5 MG TABLET PO SCH (09:15)
[2017-11-20] MEDS: HYDROmorphone 2 MG/ML 1 ML SYRINGE IVP PRN (09:22)
[2017-11-20 12:16] LABS: Glucose,Whole Blood 239 mg/dL (75-99)
--- NOTE | 2017-11-20 14:06 | P.PN ---
<PeterNimo M - Last Filed: 11/20/17 13:59> Subjective Progress Note Date: 11/20/17 72-year-old female seen and examined. Sitting up in the bed. Patient states abdominal pain is gone. Patient states that she did have several bowel movement yesterday. Patient states after having the bowel movements the pain in the abdomen is gone Objective - Vital Signs Vital signs: Vital Signs Temp 97.1 F L 11/20/17 07:00 Pulse 84 11/20/17 09:27 Resp 17 11/20/17 09:27 BP 111/58 11/20/17 07:00 Pulse Ox 97 11/20/17 07:00 Intake & Output 11/19/17 11/20/17 11/20/17 18:59 06:59 18:59 Intake Total 240 250 Output Total 250 Balance -250 240 250 Intake: Oral 240 250 Output: Urine 250 Other: Voiding Method Bedside Commode # Voids 3 1 # Bowel Movements 1 - Exam exam 72-year-old female resting in bed appears in no acute distress Lungs adequate air movement no cough noted no shortness of breath Heart S1-S2 audible regular Abdomen obese soft nontender states abdominal pain has resolved states has had several large formed bowel movements urinating no difficulty reports tolerating a diet with no nausea or vomiting Extremities no edema noted - Labs CBC & Chem 7: 11/18/17 09:07 11/18/17 09:07 Labs: Abnormal Lab Results - Last 24 Hours (Table) 11/19/17 11/19/17 11/20/17 Range/Units 17:32 21:02 07:27 PT 13.4 H (9.0-12.0) sec INR 1.4 H (<1.2) POC Glucose (mg/dL) 235 H 234 H (75-99) mg/dL 11/20/17 11/20/17 Range/Units 07:39 12:10 PT (9.0-12.0) sec INR (<1.2) POC Glucose (mg/dL) 186 H 239 H (75-99) mg/dL Microbiology - Last 24 Hours (Table) 11/17/17 12:11 Blood Culture - Preliminary Blood No Growth after 48 hours Assessment and Plan Assessment: Impression Abdominal pain suspect due to moderate fecal impaction Chronic constipation opiate-induced Debility limited mobility Abdominal x-ray shows moderate fecal stasis History of a prior CVA left side weakness Factor v111 on Coumadin Type 2 diabetes Diabetic foot ulcer associated with type 2 diabetes Osteomyelitis of the right foot present on admission Plan No evidence of an acute surgical abdomen Start bowel stimulant regime Low fiber diet Will sign off and re-eval as needed DVT and GI prophylaxis The above impression and plan of care have been discussed and directed by signing physician. Nimo Green nurse practitioner acting as scribe for signing physician. <Belinda Brambila N - Last Filed: 11/20/17 18:41> Objective - Vital Signs Vital signs: Vital Signs Temp 97.4 F L 11/20/17 15:00 Pulse 80 11/20/17 16:26 Resp 17 11/20/17 16:26 BP 120/64 11/20/17 15:00 Pulse Ox 96 11/20/17 15:00 Intake & Output 11/19/17 11/20/17 11/20/17 18:59 06:59 18:59 Intake Total 240 600 Output Total 250 Balance -250 240 600 Intake: Oral 240 600 Output: Urine 250 Other: Voiding Method Toilet Bedside Commode # Voids 3 1 2 # Bowel Movements 1 1 - Exam GENERAL: Well developed and in no acute distress. Pleasant. HEENT: No sclera icterus. Extraocular movements grossly intact. Moist buccal mucosa. Head is atraumatic, normocephalic. Hears conversational speech. No nasal drainage. NECK: Supple without lymphadenopathy. CHEST: Non-labored respirations and equal bilateral excursions. CARDIOVASCULAR: Regular rate and rhythm. Palpable 2+ radial pulses. ABDOMEN: Soft, nontender. Nondistended. MUSCULOSKELETAL: No clubbing, cyanosis or edema. Has heel boots on. NEUROLOGIC: No focal or lateralizing signs. PSYCH: Appropriate affect. Alert and oriented to person, place and time. SKIN: Good skin turgor. Well perfused. - Labs CBC & Chem 7: 11/18/17 09:07 11/18/17 09:07 Labs: Abnormal Lab Results - Last 24 Hours (Table) 11/19/17 11/20/17 11/20/17 Range/Units 21:02 07:27 07:39 PT 13.4 H (9.0-12.0) sec INR 1.4 H (<1.2) POC Glucose (mg/dL) 234 H 186 H (75-99) mg/dL 11/20/17 11/20/17 Range/Units 12:10 17:14 PT (9.0-12.0) sec INR (<1.2) POC Glucose (mg/dL) 239 H 282 H (75-99) mg/dL Microbiology - Last 24 Hours (Table) 11/17/17 12:11 Blood Culture - Preliminary Blood No Growth after 72 hours Assessment and Plan (1) Bilateral lower abdominal pain Current Visit: Yes Status: Acute Code(s): R10.31 - RIGHT LOWER QUADRANT PAIN ; R10.32 - LEFT LOWER QUADRANT PAIN SNOMED Code(s): 73540441 (2) Chronic constipation Current Visit: Yes Status: Acute Code(s): K59.09 - OTHER CONSTIPATION SNOMED Code(s): 833567922 (3) Osteomyelitis of right foot Current Visit: No Status: Acute Code(s): M86.9 - OSTEOMYELITIS, UNSPECIFIED SNOMED Code(s): 0649243279703934 Plan: 1. Patient had excellent results with enemas including bowel regimen. No surgical intervention needed. 2. Patient is clear from a surgical standpoint for discharge once medically cleared. 3. She may follow up as needed as an outpatient.
[2017-11-20 17:20] LABS: Glucose,Whole Blood 282 mg/dL (75-99)
[2017-11-20] MEDS: WARFARIN 2 MG TAB PO SCH (17:41)
[2017-11-20 20:45] LABS: Glucose,Whole Blood 186 mg/dL (75-99)
[2017-11-20] MEDS: FAMOTIDINE 20 MG TAB PO SCH (20:49)
[2017-11-20] MEDS: POLYETHYLENE GLYCOL 3350 17 GM POWD.PACK PO SCH (20:49)
[2017-11-20] MEDS: ALPRAZolam 0.5 MG TAB PO SCH (20:54)
[2017-11-20] MEDS: SODIUM CHLORIDE 0.9% 1,000 ML IV SCH (20:55)
[2017-11-21] MEDS: AMPICILLIN-SULBACTAM 1.5 GM in SODIUM CHLORIDE 0.9% 50 ML IVPB SCH ×3 (00:05→15:05)
[2017-11-21] MEDS: HYDROmorphone 2 MG/ML 1 ML SYRINGE IVP PRN (01:50)
[2017-11-21] MEDS: LEVOTHYROXINE 100 MCG TAB PO SCH (06:43)
[2017-11-21 07:38] LABS: Glucose,Whole Blood 188 mg/dL (75-99)
[2017-11-21] MEDS: oxyCODONE-APAP 10-325MG 1 EACH TAB PO PRN ×3 (07:59→21:43)
[2017-11-21] MEDS: SENNOSIDES 8.6 MG TAB PO SCH ×2 (07:59→21:43)
[2017-11-21] MEDS: INSULIN ASPART 100 UNIT/ML 1 ML 10 ML VIAL SQ SCH ×4 (07:59→21:44)
[2017-11-21] MEDS: hydrALAZINE HCL 50 MG TAB PO SCH ×2 (08:00→21:43)
[2017-11-21] MEDS: METOPROLOL SUCCINATE (ER) 50 MG TAB.ER.24H PO SCH (08:00)
[2017-11-21] MEDS: FUROSEMIDE 20 MG TAB PO SCH (08:00)
[2017-11-21] MEDS: POTASSIUM CHLORIDE ER 10 MEQ TAB.ER.PRT PO SCH (08:00)
[2017-11-21] MEDS: LINAGLIPTIN 5 MG TABLET PO SCH (08:00)
--- NOTE | 2017-11-21 08:17 | PN ---
PROGRESS NOTE SUBJECTIVE: This is a elderly white female with boots on her feet. She has ulcerations and cellulitis of bilateral heels. IV antibiotics will be continued with Unasyn until Infectious Disease determines what she needs for outpatient antibiotics. Remaining no weightbearing. She will need custodial placement. Sugars have been in the mid 200s. CARDIOVASCULAR: S1, S2. LUNGS: Scattered wheeze. HEMATOLOGY: Negative Homans. OPHTHALMOLOGICAL: Pupils equal, round, reactive to light and accommodation. NEUROLOGIC: Alert and oriented x3. ASSESSMENT: 1. Cellulitis to the heels. 2. Insulin-dependent diabetes mellitus. 3. Acute abdominal pain. 4. Hypertension. Continue with current treatment with IV antibiotics. Accu-Chek protocol. PT, OT, and no weightbearing. MMODL / IJN: [id number] /
[2017-11-21 08:26] LABS: INR 1.4 (<1.2); Prothrombin Time 12.9 sec (9.0-12.0)
[2017-11-21 11:42] LABS: Glucose,Whole Blood 245 mg/dL (75-99)
[2017-11-21 16:57] LABS: Glucose,Whole Blood 217 mg/dL (75-99)
[2017-11-21] MEDS: WARFARIN 2 MG TAB PO SCH (18:11)
[2017-11-21] MEDS: SODIUM CHLORIDE 0.9% 1,000 ML IV SCH (18:12)
[2017-11-21 20:45] LABS: Glucose,Whole Blood 218 mg/dL (75-99)
[2017-11-21] MEDS: FAMOTIDINE 20 MG TAB PO SCH (21:43)
[2017-11-21] MEDS: POLYETHYLENE GLYCOL 3350 17 GM POWD.PACK PO SCH (21:44)
[2017-11-21] MEDS: ALPRAZolam 0.5 MG TAB PO SCH (21:44)
[2017-11-22] MEDS: AMPICILLIN-SULBACTAM 1.5 GM in SODIUM CHLORIDE 0.9% 50 ML IVPB SCH ×4 (00:14→23:23)
[2017-11-22] MEDS: HYDROmorphone 2 MG/ML 1 ML SYRINGE IVP PRN ×2 (02:51→16:34)
[2017-11-22] MEDS: LEVOTHYROXINE 100 MCG TAB PO SCH (06:50)
[2017-11-22 07:19] LABS: Glucose,Whole Blood 176 mg/dL (75-99)
[2017-11-22] MEDS: oxyCODONE-APAP 10-325MG 1 EACH TAB PO PRN ×3 (07:47→21:14)
[2017-11-22] MEDS: SENNOSIDES 8.6 MG TAB PO SCH ×2 (07:48→21:08)
[2017-11-22] MEDS: INSULIN ASPART 100 UNIT/ML 1 ML 10 ML VIAL SQ SCH ×4 (07:48→22:00)
[2017-11-22] MEDS: FUROSEMIDE 20 MG TAB PO SCH (07:48)
[2017-11-22] MEDS: LINAGLIPTIN 5 MG TABLET PO SCH (07:49)
[2017-11-22] MEDS: POTASSIUM CHLORIDE ER 10 MEQ TAB.ER.PRT PO SCH (07:49)
[2017-11-22] MEDS: hydrALAZINE HCL 50 MG TAB PO SCH ×2 (07:49→21:08)
[2017-11-22] MEDS: METOPROLOL SUCCINATE (ER) 50 MG TAB.ER.24H PO SCH (07:50)
[2017-11-22 09:03] LABS: INR 1.4 (<1.2); Prothrombin Time 13.3 sec (9.0-12.0)
--- NOTE | 2017-11-22 10:00 | PN ---
PROGRESS NOTE SUBJECTIVE: This is a white female who is admitted with osteomyelitis/cellulitis of the heels. She is wearing boots on her heels. Insulin-dependent diabetes mellitus, acute abdominal pain, hypertension. Remains on broad-spectrum IV antibiotics. No weightbearing. Await Detention placement on Thursday. Sugars have been good. Surgically cleared for abdominal pain, constipation. CARDIOVASCULAR: S1, S2. LUNGS: Scattered wheeze. GI is soft. Increased bowel sounds. HEMATOLOGY: Negative Homans. ASSESSMENT: 1. Cellulitis of the heels, possible osteomyelitis. 2. Insulin dependent diabetes mellitus. 3. Diabetic wound infection of the heels. 4. Acute abdominal pain. 5. Hypertension. Continue with broad-spectrum IV antibiotics, switch to oral antibiotics on discharge. Await Detention placement. Follow up with the [facility]. MMODL / IJN: [id number] /
[2017-11-22 11:30] LABS: Glucose,Whole Blood 244 mg/dL (75-99)
[2017-11-22] MEDS ORDERED: INSULIN DETEMIR 100 UNIT/ML 10 ML VIAL SQ SCH (11:30)
[2017-11-22] MEDS ORDERED: MENTHOL-ZINC OXIDE OINT 113 GM TUBE TOPICAL PRN (11:37)
[2017-11-22] MEDS: SODIUM CHLORIDE 0.9% 1,000 ML IV SCH (13:06)
[2017-11-22 17:29] LABS: Glucose,Whole Blood 265 mg/dL (75-99)
[2017-11-22] MEDS: WARFARIN 2 MG TAB PO SCH (18:07)
[2017-11-22] MEDS: ALPRAZolam 0.5 MG TAB PO SCH (21:08)
[2017-11-22] MEDS: POLYETHYLENE GLYCOL 3350 17 GM POWD.PACK PO SCH (21:08)
[2017-11-22] MEDS: FAMOTIDINE 20 MG TAB PO SCH (21:08)
[2017-11-22 21:40] LABS: Glucose,Whole Blood 309 mg/dL (75-99)
[2017-11-23] MEDS: HYDROmorphone 2 MG/ML 1 ML SYRINGE IVP PRN ×2 (00:26→13:49)
[2017-11-23] MEDS: LEVOTHYROXINE 100 MCG TAB PO SCH (06:41)
[2017-11-23 07:42] LABS: Glucose,Whole Blood 193 mg/dL (75-99)
[2017-11-23] MEDS: AMPICILLIN-SULBACTAM 1.5 GM in SODIUM CHLORIDE 0.9% 50 ML IVPB SCH ×3 (08:20→23:39)
[2017-11-23] MEDS: INSULIN ASPART 100 UNIT/ML 1 ML 10 ML VIAL SQ SCH ×4 (08:20→21:34)
[2017-11-23] MEDS: METOPROLOL SUCCINATE (ER) 50 MG TAB.ER.24H PO SCH (08:21)
[2017-11-23] MEDS: LINAGLIPTIN 5 MG TABLET PO SCH (08:21)
[2017-11-23] MEDS: SENNOSIDES 8.6 MG TAB PO SCH ×2 (08:21→20:41)
[2017-11-23] MEDS: POTASSIUM CHLORIDE ER 10 MEQ TAB.ER.PRT PO SCH (08:21)
[2017-11-23] MEDS: oxyCODONE-APAP 10-325MG 1 EACH TAB PO PRN ×2 (08:21→20:41)
[2017-11-23] MEDS: FUROSEMIDE 20 MG TAB PO SCH (08:21)
[2017-11-23] MEDS: hydrALAZINE HCL 50 MG TAB PO SCH ×2 (08:21→20:41)
[2017-11-23] MEDS: SODIUM CHLORIDE 0.9% 1,000 ML IV SCH (08:27)
[2017-11-23 09:19] LABS: INR 1.4 (<1.2); Prothrombin Time 12.8 sec (9.0-12.0)
--- NOTE | 2017-11-23 10:04 | PN ---
PROGRESS NOTE SUBJECTIVE: 72-year-old white female with osteomyelitis of the heel, insulin-dependent diabetes mellitus, acute abdominal pain, hypertension. The patient was clinically improved from medical standpoint. Cardiovascular S1-S2. Lungs clear. GI soft. Extremities show ulcerations in the lower extremities. ASSESSMENT: 1. Osteomyelitis of the heels. 2. Insulin dependent diabetes mellitus. 3 Acute abdominal pain. 1. Hypertension. PLAN: Continue with current treatment. follow up next 24-48 hours. IV antibiotics until oral antibiotics will be given. Follow up next 24-48 hours for possible discharge to [facility]. Continue localized wound care. MMODL / IJN: [id number] /
[2017-11-23 11:57] LABS: Glucose,Whole Blood 292 mg/dL (75-99)
--- NOTE | 2017-11-23 14:07 | PN ---
PROGRESS NOTE SUBJECTIVE: A 72-year-old white female, with right heel osteomyelitis versus cellulitis with Dr. Varela recommendations for antibiotics. She apparently injured her left heel, bumping onto the floor last night. She is in severe pain. Cried all night. Awaiting discharge recommendations for rehab. She has no weightbearing on these feet. She has a boots on these feet. VITAL SIGNS: Stable, afebrile. CARDIOVASCULAR: S1, S2. LUNGS: Clear. GI: Soft. HEMATOLOGIC: Shows heel bruising bilaterally with some swelling and redness about 2 x 2 cm on bilateral heels. ASSESSMENT: 1. Insulin-dependent diabetes mellitus, diabetic wound infections, chronic cellulitis of the heels. 2. Hypertension. 3. Gastroesophageal reflux disease. 4. Chronic pain syndrome. Continue with antibiotics per Dr. Varela' recommendations, standardized wound care. Rehab placement is pending [facility] where patient wants to go. MMODL / IJN: [id number] /
--- NOTE | 2017-11-23 15:19 | XR ---
EXAMINATION TYPE: XR chest 2V DATE OF EXAM: 11/23/2017 COMPARISON: 08/27/2017 HISTORY: ECF placement TECHNIQUE: Frontal and lateral views of the chest are obtained. FINDINGS: There is no focal air space opacity, pleural effusion, or pneumothorax seen. The cardiac silhouette size is within normal limits. The osseous structures are intact. There is generalized os seous demineralization and mild multilevel degenerative changes of the thoracic spine. Cholecystectom y clips are noted within the right upper quadrant. IMPRESSION: No acute cardiopulmonary process.
[2017-11-23 17:00] LABS: Glucose,Whole Blood 223 mg/dL (75-99)
[2017-11-23] MEDS: WARFARIN 2 MG TAB PO SCH (18:40)
[2017-11-23] MEDS: ALPRAZolam 0.5 MG TAB PO SCH (20:41)
[2017-11-23] MEDS: FAMOTIDINE 20 MG TAB PO SCH (20:41)
[2017-11-23] MEDS: POLYETHYLENE GLYCOL 3350 17 GM POWD.PACK PO SCH (20:41)
[2017-11-23 21:19] LABS: Glucose,Whole Blood 266 mg/dL (75-99)
[2017-11-23] MEDS: INSULIN DETEMIR 100 UNIT/ML 10 ML VIAL SQ SCH (21:33)
--- NOTE | 2017-11-23 22:50 | P.PN ---
Subjective Progress Note Date: 11/23/17 Principal diagnosis: Weakness 72-year-old female was well-known to the service in the wound healing center due to nonhealing ulcerations to her heels have occurred. She relates that because the ulcerations were worsening to bilateral heels she then presented to Hospital. She was responsive significant changes in her psychosocial situation. Her sister had moved to [place] to be her concrete pipe machine operator, moved back to [place] to see her grandchild. She suffered a stroke in the myocardial infarction and . She relates that several weeks ago she suffered a fall at home and did not have her communication device close and spent many hours on the floor with resultant injury to her right foot dorsum toe. She's been providing this care. Despite offloading her heels while she is in bed in the chair and not walking much she's now developed significant ulcerations to the heels. Right heel considerably worse than the left. When asked about pressure she just does not believe she's been putting pressure to the site. She is denying fevers chills rigors or sweats. Feels poorly overall. Patient is improved today. Compliant with therapy. Looks for to going to rehab to try to improve her status. Objective - Vital Signs Vital signs: Vital Signs Temp 97.4 F L 11/23/17 15:00 Pulse 92 11/23/17 15:00 Resp 16 11/23/17 15:00 BP 118/57 11/23/17 15:00 Pulse Ox 97 11/23/17 15:00 Intake & Output 11/23/17 11/23/17 11/24/17 06:59 18:59 06:59 Intake Total 580 Balance 580 Weight 87.5 kg Intake: Intake, IV Titration 100 Amount Ampicillin-Sulbactam 1.5 100 gm In Sodium Chloride 0.9 % 50 ml @ 100 mls/hr IVPB Q8HR [facility] Rx#:[id number] Oral 480 Other: # Voids 3 4 # Bowel Movements 1 - Exam HEENT: Anicteric conjunctiva are pink and moist nasal mucosa grossly intact without significant lesions, there is no thrush. Neck: The neck is supple without significant lymphadenopathy or thyromegaly. Lungs: Good bilateral air entry without significant crackles or wheezing. There is no significant bronchial sounds. There is no egophony or dullness. Heart: Regular rate and rhythm with an audible S1-S2, no S3 no S4. There is no significant murmur click or rub, PMI was nondisplaced. Abdomen: Positive bowel sounds soft and nontender without palpable masses or organomegaly. There was no guarding or rebound. Extremities: Upper shoulders reveal evidence of no lesions. Current IV site is intact. Lower extremity reveal evidence of minimal edema. Left heel has evidence of ulceration as per the nursing photography of 2 x 2 by 0.1. Right heel is a more extensive ulceration of 4 x 4 x 0.2 cm. Patient has some neuropathy in the sites are not very tender. There is fat layer exposed to the right heel ulcer. Neuro: Awake alert oriented to person place and time. There are no acute new gross focal sensory motor deficits. - Labs CBC & Chem 7: 11/18/17 09:07 11/18/17 09:07 Labs: Abnormal Lab Results - Last 24 Hours (Table) 11/23/17 11/23/17 11/23/17 Range/Units 07:40 08:53 11:45 PT 12.8 H (9.0-12.0) sec INR 1.4 H (<1.2) POC Glucose (mg/dL) 193 H 292 H (75-99) mg/dL 11/23/17 11/23/17 Range/Units 16:56 21:03 PT (9.0-12.0) sec INR (<1.2) POC Glucose (mg/dL) 223 H 266 H (75-99) mg/dL Microbiology - Last 24 Hours (Table) 11/17/17 12:11 Blood Culture - Final Blood No Growth after 144 hours Laboratory Results WBC 5.3 k/uL (3.8-10.6) 11/18/17 09:07 RBC 4.04 m/uL (3.80-5.40) 11/18/17 09:07 Hgb 11.4 gm/dL (11.4-16.0) 11/18/17 09:07 Hct 36.5 % (34.0-46.0) 11/18/17 09:07 MCV 90.3 fL (80.0-100.0) 11/18/17 09:07 MCH 28.1 pg (25.0-35.0) 11/18/17 09:07 MCHC 31.1 g/dL (31.0-37.0) 11/18/17 09:07 RDW 12.6 % (11.5-15.5) 11/18/17 09:07 Plt Count 200 k/uL (150-450) 11/18/17 09:07 Neutrophils % 54 % 11/18/17 09:07 Lymphocytes % 34 % 11/18/17 09:07 Monocytes % 6 % 11/18/17 09:07 Eosinophils % 4 % 11/18/17 09:07 Basophils % 0 % 11/18/17 09:07 Neutrophils # 2.9 k/uL (1.3-7.7) 11/18/17 09:07 Lymphocytes # 1.8 k/uL (1.0-4.8) 11/18/17 09:07 Monocytes # 0.3 k/uL (0-1.0) 11/18/17 09:07 Eosinophils # 0.2 k/uL (0-0.7) 11/18/17 09:07 Basophils # 0.0 k/uL (0-0.2) 11/18/17 09:07 ESR 23 mm/hr (0-20) H 11/17/17 12:11 PT 12.8 sec (9.0-12.0) H 11/23/17 08:53 INR 1.4 (<1.2) H 11/23/17 08:53 Sodium 138 mmol/L (137-145) 11/18/17 09:07 Potassium 4.2 mmol/L (3.5-5.1) 11/18/17 09:07 Chloride 101 mmol/L (98-107) 11/18/17 09:07 Carbon Dioxide 31 mmol/L (22-30) H 11/18/17 09:07 Anion Gap 6 mmol/L 11/18/17 09:07 BUN 27 mg/dL (7-17) H 11/18/17 09:07 Creatinine 0.84 mg/dL (0.52-1.04) 11/18/17 09:07 Est GFR (MDRD) Af Amer >60 (>60 ml/min/1.73 sqM) 11/18/17 09:07 Est GFR (MDRD) Non-Af >60 (>60 ml/min/1.73 sqM) 11/18/17 09:07 Glucose 215 mg/dL (74-99) H 11/18/17 09:07 POC Glucose (mg/dL) 266 mg/dL (75-99) H 11/23/17 21:03 POC Glu Bulk Clerk Nusrat Tadeo 11/23/17 21:[address] Glu mg/dL 246 11/17/17 12:11 Hemoglobin A1c 10.2 % (4.0-6.0) H 11/17/17 12:11 Calcium 9.1 mg/dL (8.4-10.2) 11/18/17 09:07 Total Bilirubin 0.4 mg/dL (0.2-1.3) 11/18/17 09:07 AST 17 U/L (14-36) 11/18/17 09:07 ALT 29 U/L (9-52) 11/18/17 09:07 Alkaline Phosphatase 69 U/L (38-126) 11/18/17 09:07 Total Protein 5.8 g/dL (6.3-8.2) L 11/18/17 09:07 Albumin 2.9 g/dL (3.5-5.0) L 11/18/17 09:07 Microbiology 11/17/17 12:11 Blood Blood Culture - Final No Growth after 144 hours Assessment and Plan (1) Diabetic foot ulcer associated with type 2 diabetes mellitus Current Visit: No Status: Acute Priority: Medium Code(s): E11.621 - TYPE 2 DIABETES MELLITUS WITH FOOT ULCER SNOMED Code(s): 967733875 (2) Diabetic ulcer of left foot associated with type 2 diabetes mellitus, with fat layer exposed Narrative/Plan: 72-year-old female relates to a fall several weeks ago with resultant injury to the right foot second toe on the dorsum. Small eschar is noted and appears to be healing. Patient is unclear of how she developed a bilateral heel ulcerations, right consequently worsen the left. Is likely from pressure given the location and the appearance. She does wear some offloading boots at home. Concern that they are worn and not protecting her. She also has very poor control of her diabetes which may be also worsening this problem. We'll work with the discharge planners at discharge to ensure she has adequate offloading boots at home for when she is laying in bed. She does not do well with air boots. Pain control appears to be adequate. She is not having fever or leukocytosis at this time. Antimicrobial therapy with Unasyn is being given while cultures are process. Unclear if the discharge plan will be to extended-care or better home environment. It is noted the patient has a very little understanding about offloading despite being adamant that she's been offloading her heels at home. The bone scan is negative underlying osteomyelitis. We'll not need outpatient intravenous antibiotic therapy. However will require wound care antibiotic therapy with cefuroxime has been advised. Patient relates her abdominal pain is improved. Computed tomography scan without other abnormalities. Current Visit: Yes Status: Acute Code(s): E11.621 - TYPE 2 DIABETES MELLITUS WITH FOOT ULCER; L97.522 - NON-PRS CHRONIC ULCER OTH PRT LEFT FOOT W FAT LAYER EXPOSED SNOMED Code(s): 8047230308933
[2017-11-24] MEDS: HYDROmorphone 2 MG/ML 1 ML SYRINGE IVP PRN ×2 (00:41→22:24)
[2017-11-24] MEDS: SODIUM CHLORIDE 0.9% 1,000 ML IV SCH (04:28)
[2017-11-24] MEDS: LEVOTHYROXINE 100 MCG TAB PO SCH (06:36)
[2017-11-24 07:21] LABS: Glucose,Whole Blood 157 mg/dL (75-99)
[2017-11-24] MEDS: SENNOSIDES 8.6 MG TAB PO SCH ×2 (08:05→22:27)
[2017-11-24] MEDS: METOPROLOL SUCCINATE (ER) 50 MG TAB.ER.24H PO SCH (08:05)
[2017-11-24] MEDS: AMPICILLIN-SULBACTAM 1.5 GM in SODIUM CHLORIDE 0.9% 50 ML IVPB SCH ×2 (08:05→15:19)
[2017-11-24] MEDS: oxyCODONE-APAP 10-325MG 1 EACH TAB PO PRN ×2 (08:06→15:15)
[2017-11-24] MEDS: INSULIN ASPART 100 UNIT/ML 1 ML 10 ML VIAL SQ SCH ×4 (08:06→22:25)
[2017-11-24] MEDS: hydrALAZINE HCL 50 MG TAB PO SCH ×2 (08:06→23:15)
[2017-11-24] MEDS: FUROSEMIDE 20 MG TAB PO SCH (08:06)
[2017-11-24] MEDS: LINAGLIPTIN 5 MG TABLET PO SCH (08:06)
[2017-11-24] MEDS: POTASSIUM CHLORIDE ER 10 MEQ TAB.ER.PRT PO SCH (08:06)
[2017-11-24 09:28] LABS: INR 1.4 (<1.2); Prothrombin Time 13.3 sec (9.0-12.0)
--- NOTE | 2017-11-24 11:20 | DS ---
DISCHARGE SUMMARY DISCHARGE MEDICATIONS: 1. Coumadin 2 mg daily. 2. Senokot 8.6 mg p.o. b.i.d. 3. MiraLAX 17 g p.o. q.h.s. 4. K-Dur 10 mEq p.o. daily. 5. Toprol-XL 50 mg daily. 6. Tradjenta 5 mg daily. 7. Synthroid 200 mcg daily. 8. Levemir 20 units subcu q.h.s. 9. . 10.Accu-Chek a.c. and at bedtime. 11.Apresoline 50 mg p.o. b.i.d. 12.Lasix 20 mg daily. 13.Pepcid 20 mg daily. 14.Xanax 0.5 mg q.h.s. and. 15.Antibiotics per Dr. Varela' recommendations. DISCHARGE DIAGNOSES: 1. Cellulitis of the heels, bilateral feet. 2. Diabetic wound infection, bilateral heels. 3. Hypothyroidism. 4. Hypertension. 5. Chronic constipation. 6. Osteoarthritis. 7. Degenerative disc disease. HOSPITAL COURSE: This is a white female, admitted with cellulitis of bilateral heels, possible osteomyelitis. Unasyn IV piggyback q.8 hours was given. The patient continued to stabilize from a medical standpoint, at which time patient was discharged home to follow up as an outpatient on oral antibiotics per Dr. Varela' recommendations. She is nonweightbearing. She wears a boot on her bilateral heels. She will need physical therapy in rehab center. She is unable to take care of herself at home. She will follow up in the wound clinic on a weekly basis or have a wound clinic nurse at physical therapy at the [facility] take care of her at the [place] [facility]. MMODL / IJN: [id number] /
[2017-11-24 12:20] LABS: Glucose,Whole Blood 292 mg/dL (75-99)
[2017-11-24 15:44] VITALS: BMI 32.9
[2017-11-24 17:22] LABS: Glucose,Whole Blood 173 mg/dL (75-99)
[2017-11-24] MEDS: WARFARIN 2 MG TAB PO SCH (17:45)
[2017-11-24 21:09] LABS: Glucose,Whole Blood 278 mg/dL (75-99)
[2017-11-24] MEDS: ALPRAZolam 0.5 MG TAB PO SCH (22:24)
[2017-11-24] MEDS: INSULIN DETEMIR 100 UNIT/ML 10 ML VIAL SQ SCH (22:25)
[2017-11-24] MEDS: POLYETHYLENE GLYCOL 3350 17 GM POWD.PACK PO SCH (22:26)
[2017-11-24] MEDS: FAMOTIDINE 20 MG TAB PO SCH (23:15)
--- NOTE | 2017-11-24 23:55 | P.PN ---
Subjective Progress Note Date: 11/24/17 Principal diagnosis: Weakness 72-year-old female was well-known to the service in the wound healing center due to nonhealing ulcerations to her heels have occurred. She relates that because the ulcerations were worsening to bilateral heels she then presented to Hospital. She was responsive significant changes in her psychosocial situation. Her sister had moved to [place] to be her carpet mechanic, moved back to [place] to see her grandchild. She suffered a stroke in the myocardial infarction and . She relates that several weeks ago she suffered a fall at home and did not have her communication device close and spent many hours on the floor with resultant injury to her right foot dorsum toe. She's been providing this care. Despite offloading her heels while she is in bed in the chair and not walking much she's now developed significant ulcerations to the heels. Right heel considerably worse than the left. When asked about pressure she just does not believe she's been putting pressure to the site. She is denying fevers chills rigors or sweats. Feels poorly overall. Patient is improved today. Compliant with therapy. Looks for to going to rehab to try to improve her status. Objective - Vital Signs Vital signs: Vital Signs Temp 97.0 F L 11/24/17 15:00 Pulse 99 11/24/17 15:00 Resp 16 11/24/17 15:00 BP 145/78 11/24/17 15:00 Pulse Ox 94 L 11/24/17 15:00 Intake & Output 11/24/17 11/24/17 11/25/17 06:59 18:59 06:59 Intake Total 100 Balance 100 Weight 87 kg 87 kg Intake: Intake, IV Titration 100 Amount Ampicillin-Sulbactam 1.5 100 gm In Sodium Chloride 0.9 % 50 ml @ 100 mls/hr IVPB Q8HR [facility] Rx#:[id number] Other: # Voids 2 1 1 # Bowel Movements 1 1 - Exam HEENT: Anicteric conjunctiva are pink and moist nasal mucosa grossly intact without significant lesions, there is no thrush. Neck: The neck is supple without significant lymphadenopathy or thyromegaly. Lungs: Good bilateral air entry without significant crackles or wheezing. There is no significant bronchial sounds. There is no egophony or dullness. Heart: Regular rate and rhythm with an audible S1-S2, no S3 no S4. There is no significant murmur click or rub, PMI was nondisplaced. Abdomen: Positive bowel sounds soft and nontender without palpable masses or organomegaly. There was no guarding or rebound. Extremities: Upper shoulders reveal evidence of no lesions. Current IV site is intact. Lower extremity reveal evidence of minimal edema. Left heel has evidence of ulceration as per the nursing photography of 2 x 2 by 0.1. Right heel is a more extensive ulceration of 4 x 4 x 0.2 cm. Patient has some neuropathy in the sites are not very tender. There is fat layer exposed to the right heel ulcer. Neuro: Awake alert oriented to person place and time. There are no acute new gross focal sensory motor deficits. - Labs CBC & Chem 7: 11/18/17 09:07 11/18/17 09:07 Labs: Abnormal Lab Results - Last 24 Hours (Table) 11/24/17 11/24/17 11/24/17 Range/Units 07:15 08:47 12:04 PT 13.3 H (9.0-12.0) sec INR 1.4 H (<1.2) POC Glucose (mg/dL) 157 H 292 H (75-99) mg/dL 11/24/17 11/24/17 Range/Units 17:17 21:07 PT (9.0-12.0) sec INR (<1.2) POC Glucose (mg/dL) 173 H 278 H (75-99) mg/dL Laboratory Results WBC 5.3 k/uL (3.8-10.6) 11/18/17 09:07 RBC 4.04 m/uL (3.80-5.40) 11/18/17 09:07 Hgb 11.4 gm/dL (11.4-16.0) 11/18/17 09:07 Hct 36.5 % (34.0-46.0) 11/18/17 09:07 MCV 90.3 fL (80.0-100.0) 11/18/17 09:07 MCH 28.1 pg (25.0-35.0) 11/18/17 09: MCHC 31.1 g/dL (31.0-37.0) 11/18/17 09:07 RDW 12.6 % (11.5-15.5) 11/18/17 09:07 Plt Count 200 k/uL (150-450) 11/18/17 09:07 Neutrophils % 54 % 11/18/17 09:07 Lymphocytes % 34 % 11/18/17 09:07 Monocytes % 6 % 11/18/17 09:07 Eosinophils % 4 % 11/18/17 09:07 Basophils % 0 % 11/18/17 09:07 Neutrophils # 2.9 k/uL (1.3-7.7) 11/18/17 09:07 Lymphocytes # 1.8 k/uL (1.0-4.8) 11/18/17 09:07 Monocytes # 0.3 k/uL (0-1.0) 11/18/17 09:07 Eosinophils # 0.2 k/uL (0-0.7) 11/18/17 09:07 Basophils # 0.0 k/uL (0-0.2) 11/18/17 09:07 ESR 23 mm/hr (0-20) H 11/17/17 12:11 PT 13.3 sec (9.0-12.0) H 11/24/17 08:47 INR 1.4 (<1.2) H 11/24/17 08:47 Sodium 138 mmol/L (137-145) 11/18/17 09:07 Potassium 4.2 mmol/L (3.5-5.1) 11/18/17 09:07 Chloride 101 mmol/L (98-107) 11/18/17 09:07 Carbon Dioxide 31 mmol/L (22-30) H 11/18/17 09:07 Anion Gap 6 mmol/L 11/18/17 09:07 BUN 27 mg/dL (7-17) H 11/18/17 09:07 Creatinine 0.84 mg/dL (0.52-1.04) 11/18/17 09:07 Est GFR (MDRD) Af Amer >60 (>60 ml/min/1.73 sqM) 11/18/17 09:07 Est GFR (MDRD) Non-Af >60 (>60 ml/min/1.73 sqM) 11/18/17 09:07 Glucose 215 mg/dL (74-99) H 11/18/17 09:07 POC Glucose (mg/dL) 278 mg/dL (75-99) H 11/24/17 21:07 POC Glu Digital Computer Operator ID Georgia Kurtz 11/24/17 21:[address] Glu mg/dL 246 11/17/17 12:11 Hemoglobin A1c 10.2 % (4.0-6.0) H 11/17/17 12:11 Calcium 9.1 mg/dL (8.4-10.2) 11/18/17 09:07 Total Bilirubin 0.4 mg/dL (0.2-1.3) 11/18/17 09:07 AST 17 U/L (14-36) 11/18/17 09:07 ALT 29 U/L (9-52) 11/18/17 09:07 Alkaline Phosphatase 69 U/L (38-126) 11/18/17 09:07 Total Protein 5.8 g/dL (6.3-8.2) L 11/18/17 09:07 Albumin 2.9 g/dL (3.5-5.0) L 11/18/17 09:07 Microbiology 11/17/17 12:11 Blood Blood Culture - Final No Growth after 144 hours Assessment and Plan (1) Diabetic foot ulcer associated with type 2 diabetes mellitus Current Visit: No Status: Acute Priority: Medium Code(s): E11.621 - TYPE 2 DIABETES MELLITUS WITH FOOT ULCER SNOMED Code(s): 323317583 (2) Diabetic ulcer of left foot associated with type 2 diabetes mellitus, with fat layer exposed Narrative/Plan: 72-year-old female relates to a fall several weeks ago with resultant injury to the right foot second toe on the dorsum. Small eschar is noted and appears to be healing. Patient is unclear of how she developed a bilateral heel ulcerations, right consequently worsen the left. Is likely from pressure given the location and the appearance. She does wear some offloading boots at home. Concern that they are worn and not protecting her. She also has very poor control of her diabetes which may be also worsening this problem. We'll work with the discharge planners at discharge to ensure she has adequate offloading boots at home for when she is laying in bed. She does not do well with air boots. Pain control appears to be adequate. She is not having fever or leukocytosis at this time. Antimicrobial therapy with Unasyn is being given while cultures are process. It is noted the patient has a very little understanding about offloading despite being adamant that she's been offloading her heels at home. The bone scan is negative underlying osteomyelitis. We'll not need outpatient intravenous antibiotic therapy. However will require wound care antibiotic therapy with cefuroxime has been advised. Patient relates her abdominal pain is improved. Computed tomography scan without other abnormalities. Appears to be having to extended-care in the next short period of time. We'll follow up with vascular surgery in the outpatient setting, possibly the wound center. Current Visit: Yes Status: Acute Code(s): E11.621 - TYPE 2 DIABETES MELLITUS WITH FOOT ULCER; L97.522 - NON-PRS CHRONIC ULCER OTH PRT LEFT FOOT W FAT LAYER EXPOSED SNOMED Code(s): 0246237106587
[2017-11-25] MEDS: AMPICILLIN-SULBACTAM 1.5 GM in SODIUM CHLORIDE 0.9% 50 ML IVPB SCH ×4 (00:51→23:37)
[2017-11-25] MEDS: SODIUM CHLORIDE 0.9% 1,000 ML IV SCH ×2 (04:08→20:45)
[2017-11-25] MEDS: LEVOTHYROXINE 100 MCG TAB PO SCH (06:32)
--- NOTE | 2017-11-25 07:05 | PN ---
PROGRESS NOTE SUBJECTIVE: A 72-year-old white female with cellulitis of the heels, diabetes mellitus, severe chronic pain, degenerative disc disease, severe osteoarthritis, COPD, coronary artery disease. The patient continues current treatments including oral antibiotics. She is set for discharge tomorrow to the correction. She has no weightbearing to her feet. She is wearing foam boots to bilateral heels. CARDIOVASCULAR: S1, S2. LUNGS: Clear. GI: Soft. PLAN: Transfer to correction in the morning. MMODL / IJN: [id number] /
[2017-11-25 07:19] LABS: Glucose,Whole Blood 155 mg/dL (75-99)
[2017-11-25] MEDS: oxyCODONE-APAP 10-325MG 1 EACH TAB PO PRN ×2 (07:52→17:13)
[2017-11-25] MEDS: SENNOSIDES 8.6 MG TAB PO SCH ×2 (07:52→20:45)
[2017-11-25] MEDS: FUROSEMIDE 20 MG TAB PO SCH (07:52)
[2017-11-25] MEDS: METOPROLOL SUCCINATE (ER) 50 MG TAB.ER.24H PO SCH (07:53)
[2017-11-25] MEDS: LINAGLIPTIN 5 MG TABLET PO SCH (07:53)
[2017-11-25] MEDS: hydrALAZINE HCL 50 MG TAB PO SCH ×2 (07:54→20:45)
[2017-11-25] MEDS: POTASSIUM CHLORIDE ER 10 MEQ TAB.ER.PRT PO SCH (07:54)
[2017-11-25] MEDS: INSULIN ASPART 100 UNIT/ML 1 ML 10 ML VIAL SQ SCH ×4 (07:54→21:09)
[2017-11-25 12:37] LABS: Glucose,Whole Blood 295 mg/dL (75-99)
[2017-11-25] MEDS: WARFARIN 2 MG TAB PO SCH (17:14)
[2017-11-25 17:15] LABS: Glucose,Whole Blood 292 mg/dL (75-99)
[2017-11-25] MEDS: FAMOTIDINE 20 MG TAB PO SCH (20:45)
[2017-11-25] MEDS: ALPRAZolam 0.5 MG TAB PO SCH (20:45)
[2017-11-25] MEDS: POLYETHYLENE GLYCOL 3350 17 GM POWD.PACK PO SCH (20:45)
[2017-11-25 20:58] LABS: Glucose,Whole Blood 211 mg/dL (75-99)
[2017-11-25] MEDS: INSULIN DETEMIR 100 UNIT/ML 10 ML VIAL SQ SCH (21:08)
[2017-11-25] MEDS: HYDROmorphone 2 MG/ML 1 ML SYRINGE IVP PRN (21:09)
--- NOTE | 2017-11-25 22:48 | PN ---
PROGRESS NOTE SUBJECTIVE: A 72-year-old white female with right heel osteomyelitis, cellulitis. She is awaiting fpc placement. She moves better, improved today. CARDIOVASCULAR: S1, S2. LUNGS: Transmitted upper airway sounds. GI: Soft. INTEGUMENT: Redness and bruising to the heels bilaterally. ASSESSMENT: 1. Cellulitis of the heels. 2. Insulin-dependent diabetes mellitus. 3. Degenerative disk disease. 4. Diabetic neuropathy. 5. Osteoarthritis. 6. Hypothyroidism. 7. Hypertension. 8. Coronary artery disease. Continue current treatments. Awaiting fpc placement. MMODL / IJN: [id number] /
--- NOTE | 2017-11-25 23:21 | P.PN ---
Subjective Progress Note Date: 11/25/17 Principal diagnosis: Weakness 72-year-old female was well-known to the service in the wound healing center due to nonhealing ulcerations to her heels have occurred. She relates that because the ulcerations were worsening to bilateral heels she then presented to Hospital. She was responsive significant changes in her psychosocial situation. Her sister had moved to [place] to be her pipe fitter helper, moved back to [place] to see her grandchild. She suffered a stroke in the myocardial infarction and . She relates that several weeks ago she suffered a fall at home and did not have her communication device close and spent many hours on the floor with resultant injury to her right foot dorsum toe. She's been providing this care. Despite offloading her heels while she is in bed in the chair and not walking much she's now developed significant ulcerations to the heels. Right heel considerably worse than the left. When asked about pressure she just does not believe she's been putting pressure to the site. She is denying fevers chills rigors or sweats. Feels poorly overall. Patient is improved today. Compliant with therapy. Looks for to going to rehab to try to improve her status. Objective - Vital Signs Vital signs: Vital Signs Temp 97.2 F L 11/25/17 15:00 Pulse 95 11/25/17 15:00 Resp 16 11/25/17 15:00 BP 114/59 11/25/17 15:00 Pulse Ox 96 11/25/17 15:00 Intake & Output 11/25/17 11/25/17 11/26/17 06:59 18:59 06:59 Weight 87 kg Other: # Voids 2 2 2 # Bowel Movements 1 - Exam HEENT: Anicteric conjunctiva are pink and moist nasal mucosa grossly intact without significant lesions, there is no thrush. Neck: The neck is supple without significant lymphadenopathy or thyromegaly. Lungs: Good bilateral air entry without significant crackles or wheezing. There is no significant bronchial sounds. There is no egophony or dullness. Heart: Regular rate and rhythm with an audible S1-S2, no S3 no S4. There is no significant murmur click or rub, PMI was nondisplaced. Abdomen: Positive bowel sounds soft and nontender without palpable masses or organomegaly. There was no guarding or rebound. Extremities: Upper shoulders reveal evidence of no lesions. Current IV site is intact. Lower extremity reveal evidence of minimal edema. Left heel has evidence of ulceration as per the nursing photography of 2 x 2 by 0.1. Right heel is a more extensive ulceration of 4 x 4 x 0.2 cm. Patient has some neuropathy in the sites are not very tender. There is fat layer exposed to the right heel ulcer. Neuro: Awake alert oriented to person place and time. There are no acute new gross focal sensory motor deficits. - Labs CBC & Chem 7: 11/18/17 09:07 11/18/17 09:07 Labs: Abnormal Lab Results - Last 24 Hours (Table) 11/25/17 11/25/17 11/25/17 Range/Units 07:12 12:34 17:07 POC Glucose (mg/dL) 155 H 295 H 292 H (75-99) mg/dL 11/25/17 Range/Units 20:57 POC Glucose (mg/dL) 211 H (75-99) mg/dL Assessment and Plan (1) Diabetic foot ulcer associated with type 2 diabetes mellitus Current Visit: No Status: Acute Priority: Medium Code(s): E11.621 - TYPE 2 DIABETES MELLITUS WITH FOOT ULCER SNOMED Code(s): 909867223 (2) Diabetic ulcer of left foot associated with type 2 diabetes mellitus, with fat layer exposed Narrative/Plan: 72-year-old female relates to a fall several weeks ago with resultant injury to the right foot second toe on the dorsum. Small eschar is noted and appears to be healing. Patient is unclear of how she developed a bilateral heel ulcerations, right consequently worsen the left. Is likely from pressure given the location and the appearance. She does wear some offloading boots at home. Concern that they are worn and not protecting her. She also has very poor control of her diabetes which may be also worsening this problem. We'll work with the discharge planners at discharge to ensure she has adequate offloading boots at home for when she is laying in bed. She does not do well with air boots. Pain control appears to be adequate. She is not having fever or leukocytosis at this time. Antimicrobial therapy with Unasyn is being given while cultures are process. It is noted the patient has a very little understanding about offloading despite being adamant that she's been offloading her heels at home. The bone scan is negative underlying osteomyelitis. We'll not need outpatient intravenous antibiotic therapy. However will require wound care antibiotic therapy with cefuroxime has been advised. Patient relates her abdominal pain is improved. Computed tomography scan without other abnormalities. Appears will be transferred to extended-care in the next short period of time. We'll follow up with vascular surgery in the outpatient setting, possibly the wound center. Current Visit: Yes Status: Acute Code(s): E11.621 - TYPE 2 DIABETES MELLITUS WITH FOOT ULCER; L97.522 - NON-PRS CHRONIC ULCER OTH PRT LEFT FOOT W FAT LAYER EXPOSED SNOMED Code(s): 8729275535670
[2017-11-25 23:27] VITALS: TEMP 97.6
[2017-11-26] MEDS: LEVOTHYROXINE 100 MCG TAB PO SCH (06:28)
[2017-11-26 08:19] VITALS: BP 131/67; PULSE 84; RESP 22
[2017-11-26] MEDS: oxyCODONE-APAP 10-325MG 1 EACH TAB PO PRN ×2 (08:30→14:18)
[2017-11-26] MEDS: METOPROLOL SUCCINATE (ER) 50 MG TAB.ER.24H PO SCH (08:31)
[2017-11-26] MEDS: AMPICILLIN-SULBACTAM 1.5 GM in SODIUM CHLORIDE 0.9% 50 ML IVPB SCH (08:31)
[2017-11-26] MEDS: LINAGLIPTIN 5 MG TABLET PO SCH (08:31)
[2017-11-26] MEDS: POTASSIUM CHLORIDE ER 10 MEQ TAB.ER.PRT PO SCH (08:31)
[2017-11-26] MEDS: hydrALAZINE HCL 50 MG TAB PO SCH (08:31)
[2017-11-26] MEDS: SENNOSIDES 8.6 MG TAB PO SCH (08:31)
[2017-11-26] MEDS: FUROSEMIDE 20 MG TAB PO SCH (08:31)
[2017-11-26] MEDS: INSULIN ASPART 100 UNIT/ML 1 ML 10 ML VIAL SQ SCH ×2 (08:32→14:19)
[2017-11-26 08:34] LABS: Glucose,Whole Blood 192 mg/dL (75-99)
[2017-11-26 12:38] LABS: Glucose,Whole Blood 307 mg/dL (75-99)
[2017-11-26] MEDS ORDERED: GABAPENTIN 400 MG CAP PO SCH (16:00)
== END 2017-11-26 15:30 | DRG 638 ==
LOC: 4MS4W 11:15
PROVIDERS: ADMIT Family Medicine; ATTEND Family Medicine
DX: E11.69 Type 2 diabetes mellitus with other specified complication (principal); M86.9 Osteomyelitis, unspecified; E11.42 Type 2 diabetes mellitus with diabetic polyneuropathy; E11.51 Type 2 diabetes mellitus with diabetic peripheral angiopathy without gangrene; E11.621 Type 2 diabetes mellitus with foot ulcer; L03.115 Cellulitis of right lower limb; I69.354 Hemiplegia and hemiparesis following cerebral infarction affecting left non-dominant side; L03.116 Cellulitis of left lower limb; L97.412 Non-pressure chronic ulcer of right heel and midfoot with fat layer exposed; L97.422 Non-pressure chronic ulcer of left heel and midfoot with fat layer exposed; E03.9 Hypothyroidism, unspecified; F03.90 Unspecified dementia, unspecified severity, without behavioral disturbance, psychotic disturbance, mood disturbance, and anxiety; G89.4 Chronic pain syndrome; I10 Essential (primary) hypertension; I25.10 Atherosclerotic heart disease of native coronary artery without angina pectoris; J44.9 Chronic obstructive pulmonary disease, unspecified; K21.9 Gastro-esophageal reflux disease without esophagitis; K59.09 Other constipation; Z96.651 Presence of right artificial knee joint; M19.90 Unspecified osteoarthritis, unspecified site; Z79.01 Long term (current) use of anticoagulants; Z79.4 Long term (current) use of insulin; Z83.3 Family history of diabetes mellitus; Z85.850 Personal history of malignant neoplasm of thyroid; Z90.710 Acquired absence of both cervix and uterus; Z79.899 Other long term (current) drug therapy; Z88.8 Allergy status to other drugs, medicaments and biological substances
CPT/HCPCS: 71046; 74019; 74177; 78315; 80053; 83036; 85025; 85610; 85652; 87040

== ENCOUNTER 2018-01-04 16:37 | Emergency (ER) | payer MEDICARE ==
[2018-01-04 17:26] VITALS: PULSE 89
[2018-01-04] MEDS ORDERED: MORPHINE SULFATE 4 MG/ML SYRINGE IVP STA (18:41)
--- NOTE | 2018-01-04 18:53 | ED ---
Lower Extremity Injury HPI - General Chief Complaint: Extremity Injury, Lower Stated Complaint: R leg/foot Pain Time Seen by Provider: 01/04/18 18:24 Source: patient, RN notes reviewed Mode of arrival: wheelchair Limitations: no limitations - History of Present Illness Initial Comments: 72-year-old female presents emergency Department chief complaint of right foot and right knee pain. Patient states that she has extensive history of infections and problems with her right leg. 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 Patient also states that she's had chronic wounds of her feet and heel region. She states she started having discomfort a few days ago noticed that there is a blister that started last few hours on her right heel. She is concerned because she had severe pain in her foot and now in her knee. She states she was just cleared to start bearing some weight after she was in the hospital for 2 weeks and rehab for 2 weeks. Patient denies fever or chills. - Related Data Home Medications Medication Instructions Recorded Confirmed oxyCODONE-APAP 10-325MG [Percocet 1 tab PO QID PRN 10/25/15 01/04/18 10-325 mg] ALPRAZolam [Xanax] 0.5 mg PO HS 08/27/17 01/04/18 Furosemide [Lasix] 20 mg PO DAILY 08/27/17 01/04/18 Potassium Chloride [K-Tab ER] 8 meq PO DAILY 08/27/17 01/04/18 Levothyroxine Sodium [Synthroid] 200 mcg PO DAILY 11/17/17 01/04/18 Gabapentin [Neurontin] 800 mg PO TID 12/10/17 01/04/18 Insulin Aspart [NovoLOG] See Protocol SQ ACHS PRN 12/10/17 01/04/18 Insulin Detemir [Levemir] 20 unit SQ QAM 12/10/17 01/04/18 metFORMIN HCL [Glucophage] 1,000 mg PO BID 12/10/17 01/04/18 Warfarin Sodium 4 mg PO DAILY@1700 01/04/18 01/04/18 Previous Rx's Medication Instructions Recorded Metoprolol Succinate (ER) [Toprol 50 mg PO DAILY tab.er.24h 09/23/15 XL] Allergies Allergy/AdvReac Type Severity Reaction Status Date / Time nickel [Nickel] Allergy Rash/Hives Verified 01/04/18 18:33 vortioxetine hydrobromide Allergy Hallucinati Verified 01/04/18 18:33 [From Brintellix] ons adhesive tape AdvReac blister Verified 01/04/18 18:33 duloxetine HCl AdvReac Hallucinati Verified 01/04/18 18:33 [From Cymbalta] ons sertraline HCl [From Zoloft] AdvReac Hallucinati Verified 01/04/18 18:33 ons Review of Systems ROS Statement: Those systems with pertinent positive or pertinent negative responses have been documented in the HPI. ROS Other: All systems not noted in ROS Statement are negative. 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 History of Any Multi-Drug Resistant Organisms: VRE, VRE Date of last positivie culture/infection: 2008 MDRO Source:: RT KNEE Past Surgical History: Adenoidectomy, Appendectomy, Bowel Resection, Cholecystectomy, Hysterectomy, Joint Replacement, Tonsillectomy Additional Past Surgical History / Comment(s): 10/26/15 suspension microlarygoscopy with benign bx, thyroidectomy, right TKA with revision a , left ankle surgery WITH HARDWARE, 2 BOWEL SURGERIES, ORIF rt hip-07/2015, bilateral carpal tunnel releases, 1997 cardiac cath-normal, bilateral heel debridements, COLONOSCOPY, R flank "blood tumor" removed, bilateral cataract removals Past Anesthesia/Blood Transfusion Reactions: Postoperative Nausea & Vomiting ( PONV) Additional Past Anesthesia/Blood Transfusion Reaction / Comment(s): Pt received blood after ORIF of the hip surgery Past Psychological History: Anxiety, Depression Smoking Status: Never smoker Past Alcohol Use History: None Reported Past Drug Use History: None Reported - Past Family History Father Family Medical History: Diabetes Mellitus Additional Family Medical History / Comment(s): Father is . Mother Family Medical History: Osteoarthritis (OA), Renal Disease Additional Family Medical History / Comment(s): Mother after kidney stone surgery and went to retirement. She was 90 yrs. old. General Exam Limitations: no limitations General appearance: alert, in no apparent distress Head exam: Present: atraumatic, normocephalic, normal inspection Eye exam: Present: normal appearance, PERRL, EOMI. Absent: scleral icterus, conjunctival injection, periorbital swelling Respiratory exam: Present: normal lung sounds bilaterally. Absent: respiratory distress, wheezes, rales, rhonchi, stridor Cardiovascular Exam: Present: regular rate, normal rhythm, normal heart sounds. Absent: systolic murmur, diastolic murmur, rubs, gallop, clicks Extremities exam: Present: other (Right leg there is old surgical scar noted to the right knee and she has pain and a popliteal region and mild discomfort with range of motion. Patient has minimal calf tenderness, there is a 1 cm blister noted to the right heel there is no surrounding erythema pedal pulses equal bilaterally) Skin exam: Present: warm, dry, intact, normal color. Absent: rash Course Vital Signs 01/04/18 17:23 Temperature 98.4 F Pulse Rate 89 Respiratory 18 Rate Blood Pressure 115/60 O2 Sat by Pulse 96 Oximetry Medical Decision Making - Medical Decision Making 72-year-old female presented emergency from for right leg pain. Patient had lab work, x-ray, ultrasound all within normal limits she does have a small new blister to her right heel she is concerned that she has a history of ulcers. I did expand the patient that it's openness of signs of infection patient's CBC was unremarkable's, CRP is negative. Patient had no signs of infection x-ray. Patient will follow-up with wound care she does have nursing there is coming to see her tomorrow and appointment on with wound care. Patient is advised to return with from for any worsening symptoms her pain is most likely related to her weightbearing on her right leg for the first time in one month. - Lab Data Result diagrams: 01/04/18 19:10 01/04/18 19:10 Lab Results 01/04/18 01/04/18 Range/Units 19:10 19:10 WBC 5.7 (3.8-10.6) k/uL RBC 4.27 (3.80-5.40) m/uL Hgb 11.8 (11.4-16.0) gm/dL Hct 38.5 (34.0-46.0) % MCV 90.3 (80.0-100.0) fL MCH 27.6 (25.0-35.0) pg MCHC 30.6 L (31.0-37.0) g/dL RDW 13.1 (11.5-15.5) % Plt Count 164 (150-450) k/uL Neutrophils % 58 % Lymphocytes % 28 % Monocytes % 8 % Eosinophils % 4 % Basophils % 0 % Neutrophils # 3.3 (1.3-7.7) k/uL Lymphocytes # 1.6 (1.0-4.8) k/uL Monocytes # 0.5 (0-1.0) k/uL Eosinophils # 0.2 (0-0.7) k/uL Basophils # 0.0 (0-0.2) k/uL Hypochromasia Slight Sodium 145 (137-145) mmol/L Potassium 4.9 (3.5-5.1) mmol/L Chloride 104 (98-107) mmol/L Carbon Dioxide 31 H (22-30) mmol/L Anion Gap 10 mmol/L BUN 27 H (7-17) mg/dL Creatinine 1.00 (0.52-1.04) mg/dL Est GFR (MDRD) Af Amer >60 (>60 ml/min/1.73 sqM) Est GFR (MDRD) Non-Af 55 (>60 ml/min/1.73 sqM) Glucose 225 H (74-99) mg/dL Calcium 9.1 (8.4-10.2) mg/dL Total Bilirubin 0.4 (0.2-1.3) mg/dL AST 27 (14-36) U/L ALT 15 (9-52) U/L Alkaline Phosphatase 72 (38-126) U/L C-Reactive Protein 5.0 (<10.0) mg/L Total Protein 6.8 (6.3-8.2) g/dL Albumin 3.5 (3.5-5.0) g/dL Disposition Clinical Impression: Right leg pain, Chronic pain, Blister of right foot without infection Disposition: HOME SELF-CARE Condition: Stable Instructions: Knee Pain (ED) Additional Instructions: Please return to the Emergency Department if symptoms worsen or any other concerns. Referrals: Eloy Griffin MD [Primary Care Provider] - 1-2 days Time of Disposition: 21:16
[2018-01-04 19:19] LABS: Basophils % (A) 0 %; Eosinophils # (A) 0.2 k/uL (0-0.7); Eosinophils % (A) 4 %; HCT 38.5 % (34.0-46.0); HGB 11.8 gm/dL (11.4-16.0); Hypochromasia Slight; Lymphocytes # (A) 1.6 k/uL (1.0-4.8); Lymphocytes % (A) 28 %; MCH 27.6 pg (25.0-35.0); MCHC 30.6 g/dL (31.0-37.0); MCV 90.3 fL (80.0-100.0); Mean Platelet Volume 8.7; Monocytes # (A) 0.5 k/uL (0-1.0); Monocytes % (A) 8 %; Neutrophils # (A) 3.3 k/uL (1.3-7.7); Neutrophils % (A) 58 %; Platelet Count 164 k/uL (150-450); RBC 4.27 m/uL (3.80-5.40); RDW 13.1 % (11.5-15.5); WBC 5.7 k/uL (3.8-10.6)
[2018-01-04 19:30] LABS: ALT 15 U/L (9-52); AST 27 U/L (14-36); Albumin 3.5 g/dL (3.5-5.0); Alkaline Phosphatase 72 U/L (38-126); Anion Gap 10 mmol/L; Blood Urea Nitrogen 27 mg/dL (7-17); Calcium 9.1 mg/dL (8.4-10.2); Carbon Dioxide 31 mmol/L (22-30); Chloride 104 mmol/L (98-107); Glucose 225 mg/dL (74-99); Potassium 4.9 mmol/L (3.5-5.1); Sodium 145 mmol/L (137-145); Total Bilirubin 0.4 mg/dL (0.2-1.3); Total Protein 6.8 g/dL (6.3-8.2)
--- NOTE | 2018-01-04 19:39 | XR ---
EXAMINATION TYPE: XR foot complete RT DATE OF EXAM: 01/04/2018 COMPARISON: 07/27/2015 HISTORY: Right foot pain TECHNIQUE: 3 views FINDINGS: There is slight deformity at the base of the first metatarsal consistent with an old healed chip fracture. I see no acute fracture. There is some osteopenia. There is a plantar calcaneal spur. There is vascular calcification. There are no erosions. IMPRESSION: No acute abnormality of the right foot. No sign of inflammatory arthritis. No adverse christal nge compared to old exam.
--- NOTE | 2018-01-04 19:41 | XR ---
EXAMINATION TYPE: XR knee complete RT DATE OF EXAM: 01/04/2018 COMPARISON: 11/16/2011 HISTORY: Knee pain TECHNIQUE: 3 views. FINDINGS: There is a right knee prosthesis. Components appear in anatomic position. There is osteopenia. I see no fracture. IMPRESSION: Knee prosthesis without evidence of a fracture.
[2018-01-04] MEDS ORDERED: HYDROmorphone 0.5 MG/0.5 ML SYRINGE IVP STA (20:44)
--- NOTE | 2018-01-04 20:55 | US ---
EXAMINATION TYPE: US venous doppler duplex LE RT DATE OF EXAM: 01/04/2018 8:38 PM COMPARISON: NONE CLINICAL HISTORY: Pain. Right leg pain SIDE PERFORMED: Right TECHNIQUE: The lower extremity deep venous system is examined utilizing real time linear array sonog jonnathan with graded compression, doppler sonography and color-flow sonography. VESSELS IMAGED: External Iliac Vein (EIV) Common Femoral Vein Deep Femoral Vein Greater Saphenous Vein * Femoral Vein Popliteal Vein Small Saphenous Vein * Proximal Calf Veins (* superficial vessels) Right Leg: Negative for DVT No evidence of DVT right leg. IMPRESSION: Negative exam. No evidence of deep venous thrombosis in the right leg.
[2018-01-04 21:38] LABS: INR 1.8 (<1.2)
[2018-01-04 21:40] LABS: Prothrombin Time 16.5 sec (9.0-12.0)
[2018-01-04 21:42] LABS: Partial Thromboplastin Time 24.3 sec (22.0-30.0)
[2018-01-04 21:57] VITALS: BP 148/78; RESP 17; TEMP 97.8
== END 2018-01-04 22:07 | disposition home or self-care (01) ==
LOC: EC 16:37
DX: S90.821A Blister (nonthermal), right foot, initial encounter (principal); M79.661 Pain in right lower leg; E11.9 Type 2 diabetes mellitus without complications; G62.9 Polyneuropathy, unspecified; F41.9 Anxiety disorder, unspecified; F32.9 Major depressive disorder, single episode, unspecified; Z86.73 Personal history of transient ischemic attack (TIA), and cerebral infarction without residual deficits; Z85.850 Personal history of malignant neoplasm of thyroid; Z98.890 Other specified postprocedural states; Z79.01 Long term (current) use of anticoagulants; Z79.4 Long term (current) use of insulin; Z79.899 Other long term (current) drug therapy; Z88.8 Allergy status to other drugs, medicaments and biological substances; Z91.048 Other nonmedicinal substance allergy status
CPT/HCPCS: 36415; 80053; 85025; 85610; 85730; 86140; 87040; 73562; 73630; 93971; 99284; 96374; 96375; J2270; J1170

== ENCOUNTER → 2018-03-04 | Outpatient (CLI) | payer MEDICARE ==
--- NOTE | 2018-03-05 09:06 | MR ---
EXAMINATION TYPE: MR brain/cspine wo DATE OF EXAM: 03/04/2018 COMPARISON: MRI brain 04/20/2012 and cervical spine 11/05/2017 HISTORY: 72-year-old female with neck Pain, Shoulder Pain, Headaches TECHNIQUE: Multiplanar, multisequence images of the brain and brainstem were acquired without IV con trast. Diffusion weighted imaging is performed. Subsequently, multiplanar, multisequence images of the cervical spine were obtained. FINDINGS: BRAIN: No evidence for acute infarction, hemorrhage, mass, mass effect, midline shift, herniation, effacemen t of basal cisterns, or extra-axial fluid collection. There is moderate generalized supratentorial volume loss similar to prior. No hydrocephalus. Major intracranial flow voids are intact. T2/FLAIR weighted sequences show only mild scattered burden of bright white matter foci in the subcor tical and deep white matter regions of both cerebral hemispheres, not significantly changed aside fro m a 5 mm focus in the anterior left temporal lobe which is larger. Some patchy signal in the bilatera l paramedian carmina also likely related to changes of chronic small vessel ischemic disease. Midline structures demonstrate normal morphology. The craniocervical junction is normal. Post contrast images demonstrate no evidence of pathologic enhancement. Dural venous sinuses are pat ent. Mild mucosal thickening within the ethmoid air cells. Globes are intact. CERVICAL SPINE: No craniocervical junction abnormality, predental space widening, or prevertebral soft tissue swellin g. There is moderate degenerative disc disease mid to lower cervical spine particularly from C4 through C7 levels with disc space narrowing, disc desiccation, slight endplate irregularity, and disc osteoph yte complex formation. Ligamentum flavum thickening is also present at these levels. Scattered facet and uncovertebral joint arthropathy is present. No suspicious bone marrow replacement rate At C2-C3, no canal or foraminal stenosis. At C3-C4, mild facet degenerative change without significant canal or foraminal stenosis. At C4-C5, mild broad-based discussed by complex and ligamentum flavum thickening with mild facet dege nerative change. There is mild narrowing of the spinal canal with AP canal dimension of 9.2 mm. No si gnificant neural foraminal stenosis. At C5-C6, broad-based disc osteophyte complex with contiguous uncovertebral joint arthropathy. Additi onal ligamentum flavum thickening and facet arthropathy is present. Changes result in moderate left a nd mild right neuroforaminal stenosis with mild spinal canal stenosis. Abutment of the ventral cord w ithout significant cord flattening. At C6-C7, broad-based disc osteophyte complex slightly eccentric towards the right with uncovertebral joint and facet degenerative changes as well as ligamentum flavum thickening. Changes mildly narrow the spinal canal without significant abutment or flattening of the spinal cord. Mild bilateral neural foraminal stenosis. At C7-T1, mild facet degenerative change without significant spinal canal or neuroforaminal stenosis. Normal course and signal intensity of the cervical cord area There is some asymmetric fullness in the left vallecular space, refer to axial image 40. COMBINED IMPRESSION: BRAIN: 1. No acute intracranial abnormality seen. 2. Similar moderate cerebral atrophy and relatively similar chronic T2 bright white matter changes wi th mild overall burden. One or 2 foci may be new or larger from 2012. Findings nonspecific but likely relate to changes of chronic small vessel ischemic disease. 3. Mild chronic ethmoid sinus disease. CERVICAL SPINE: 1. [id number] multilevel disc/endplate degenerative change with ligamentum flavum thickening an d facet/uncovertebral joint arthropathy, greatest from C4 through C7 levels. Changes have not signifi cantly progressed from the recent 11/05/2017 exam. 2. There is resultant mild spinal canal stenosis from C4 through C7 without any cord compression or c anal compromise. 3. Variable mild neuroforaminal stenoses at these levels, moderate on the left at C5-C6. 4. Some asymmetric fullness in the left vallecular space (axial image 40) may be secondary to mucosal redundancy. Correlate for any risk factors for oral cancer; direct visualization as indicated.
== END | disposition home or self-care (01) ==
LOC: RADMRIMAIN 14:42
PROVIDERS: ATTEND Family Medicine
DX: M48.02 Spinal stenosis, cervical region (principal); M99.71 Connective tissue and disc stenosis of intervertebral foramina of cervical region; M47.812 Spondylosis without myelopathy or radiculopathy, cervical region; M46.92 Unspecified inflammatory spondylopathy, cervical region; G31.9 Degenerative disease of nervous system, unspecified; R90.82 White matter disease, unspecified
CPT/HCPCS: 70551; 72141

== ENCOUNTER → 2018-04-08 | Outpatient (CLI) | payer MEDICARE ==
--- NOTE | 2018-04-08 12:12 | CT ---
EXAMINATION TYPE: CT abdomen pelvis wo con DATE OF EXAM: 04/08/2018 COMPARISON: 11/18/2017 HISTORY: RLQ pain, groin pain CT DLP: 1192 mGycm Examination of the solid and hollow viscera is limited given the lack of contrast. FINDINGS: LUNG BASES: No evidence for nodule. No evidence for infiltrate. LIVER/GB: Cholecystectomy clips are in place.. No space-occupying hepatic lesion. PANCREAS: No pancreatic mass identified. No inflammatory process seen. SPLEEN: No evidence for splenomegaly. No intrasplenic lesions seen. ADRENALS: No adrenal nodules identified. No evidence for thickening. KIDNEYS: No evidence for solid renal mass. Stable renal cystic changes. No nephrolithiasis. No hydron ephrosis. BOWEL: Nonvisualization of the appendix although no definite inflammatory process appreciated. No kiara dence of bowel obstruction. No inflammatory process. Lymph nodes: No evidence for adenopathy greater than 1 cm. Abdominal aorta: Atheromatous changes seen. No evidence for aneurysm. Genital organs: No significant abnormality. Other: No significant abnormality. IMPRESSION: No significant abnormality to account for the patient's symptoms.
== END | disposition home or self-care (01) ==
LOC: RADCTMAIN 11:41
PROVIDERS: ATTEND Family Medicine
DX: R10.31 Right lower quadrant pain (principal)
CPT/HCPCS: 74176

== ENCOUNTER → 2018-05-17 | Outpatient (CLI) | payer MEDICARE ==
--- NOTE | 2018-05-17 11:46 | MM ---
Reason for exam: screening (asymptomatic). Last mammogram was performed 1 year ago. History: Patient is postmenopausal, has history of other cancer at age 47, and has history of endometrial cancer at age 36. Benign cyst aspiration of the left breast. Physical Findings: A clinical breast exam by your physician is recommended on an annual basis and results should be correlated with mammographic findings. MG 3D Screening Mammo W/Cad Bilateral CC, MLO, and XCCL view(s) were taken. Prior study comparison: May 07, 2017, bilateral MG 3d diag mammo w/cad ABDIAZIZ. June 16, 2016, bilateral MG 3d diag mammo w/cad ABDIAZIZ. There are scattered fibroglandular densities. No significant changes when compared with prior studies. ASSESSMENT: Benign, BI-RAD 2 RECOMMENDATION: Routine screening mammogram of both breasts in 1 year.
== END | disposition home or self-care (01) ==
LOC: RADMAMWWP 06:48
PROVIDERS: ATTEND Family Medicine
DX: Z12.31 Encounter for screening mammogram for malignant neoplasm of breast (principal)
CPT/HCPCS: 77063; 77067

== ENCOUNTER → 2018-06-25 | Outpatient (CLI) | payer MEDICARE ==
[~2018-06-25] MED LIST: REGADENOSON 0.4 MG/5 ML SYRINGE IV ONE
--- NOTE | 2018-06-25 11:02 | EST ---
EXERCISE STRESS DATE OF SERVICE: 06/25/2018 AGE: 73 SEX: Female HT: 64" WT: 180 pounds PROTOCOL: Lexiscan Cardiolite STAGE: DURATION OF EXERCISE: HEART RATE REST: 93 BLOOD PRESSURE REST: 123/73 MAXIMUM HEART RATE ACHIEVED: 108 MAXIMUM BLOOD PRESSURE: 123/73 85% MPHR: 100% MPHR: METS: INDICATIONS: Chest pain. CLINICAL INFORMATION: STRESS DATA: Pretesting physical examination showed a heart rate of 93, pressure is 123/78 mmHg. Baseline EKG showed sinus rhythm. A 0.4 mg of Lexiscan was given to the patient over 15 seconds per protocol. Max heart rate was 108 beats per minute and maximum pressure was 123/73 mmHg. Clinically, the patient did not have any symptoms of chest pain or chest discomfort and the EKG did not show any significant ST or T wave abnormalities concerning for ischemia. CONCLUSION: 1. Nondiagnostic electrocardiogram stress testing in response to Lexiscan. 2. Please follow up on the Cardiolite portion on separate report from radiology department. MMODL / IJN: [id number] /
--- NOTE | 2018-06-25 11:18 | NM ---
EXAMINATION TYPE: NM stress lexiscan cardiolite DATE OF EXAM: 06/25/2018 COMPARISON: 02/09/2012 HISTORY: Chest pain TECHNIQUE: After the intravenous administration of 10.1 mCi Tc 99m Sestamibi - Cardiolite resting SP ECT images acquired 45 minutes post injection. The patient received 0.4mg Lexiscan, 25.1 mCi Tc 99m Sestamibi - Stress images obtained [address] injection FINDINGS: Review of stress and rest SPECT images demonstrates no distinct perfusion abnormality. Gated analysi s shows normal wall motion with an estimated left ventricular ejection fraction of 82 %. TID is withi n normal limits calculated at 0.83. IMPRESSION: 1. No scintigraphic evidence for reversible ischemia. 2. Estimated left ventricular ejection fraction is within normal limits at 82%.
== END | disposition home or self-care (01) ==
LOC: RADNMMAIN 07:57
PROVIDERS: ATTEND Family Medicine
DX: R07.9 Chest pain, unspecified (principal)
CPT/HCPCS: 93017; 78452; A9500; J2785

== ENCOUNTER → 2018-07-07 | Outpatient (CLI) | payer MEDICARE ==
[2018-07-07 13:59] LABS: HCT 39.7 % (34.0-46.0); HGB 12.4 gm/dL (11.4-16.0); Hypochromasia Slight; MCH 29.1 pg (25.0-35.0); MCHC 31.2 g/dL (31.0-37.0); MCV 93.2 fL (80.0-100.0); Mean Platelet Volume 8.2; Platelet Count 245 k/uL (150-450); RBC 4.26 m/uL (3.80-5.40); RDW 13.4 % (11.5-15.5); WBC 7.1 k/uL (3.8-10.6)
[2018-07-07 14:03] LABS: Blood Urea Nitrogen 19 mg/dL (7-17)
--- NOTE | 2018-07-07 14:44 | CT ---
EXAMINATION TYPE: CT chest w con DATE OF EXAM: 07/07/2018 COMPARISON: None HISTORY: Cough CT DLP: 520 mGycm Automated exposure control for dose reduction was used. CONTRAST: CT scan of the chest is performed with IV Contrast, patient injected with 100 mL of Isovue 300. FINDINGS: LUNGS: The lungs are grossly clear, there is no concerning parenchymal mass or nodule identified. T here is no pleural effusion or pneumothorax seen. The tracheobronchial tree is patent. MEDIASTINUM: There are no greater than 1 cm hilar or mediastinal lymph nodes. No pericardial effusi on is seen. Thoracic aorta is of normal caliber. The heart is not enlarged. UPPER ABDOMEN: Mild fatty liver. Cholecystectomy clips. OTHER: No additional significant abnormality is seen. IMPRESSION: 1. No evidence for infiltrate, nodule or mass.
[2018-07-07 15:36] LABS: Erythrocyte Sedimentation Rate 19 mm/hr (0-20)
== END | disposition home or self-care (01) ==
LOC: RADCTMAIN 13:18
PROVIDERS: ATTEND Family Medicine
DX: R05 Cough (principal); T84.03 Mechanical loosening of internal prosthetic joint
CPT/HCPCS: 85652; 82565; 84520; 85027; 86141; 71260; 36415; Q9967

== ENCOUNTER → 2019-04-21 | Outpatient (CLI) | payer MEDICARE ==
[2019-04-21 15:12] LABS: Blood Urea Nitrogen 16 mg/dL (7-17)
--- NOTE | 2019-04-21 16:14 | CT ---
EXAMINATION TYPE: CT neck chest w con DATE OF EXAM: 04/21/2019 COMPARISON: 07/07/2018 HISTORY: Chronic cough and neck pain. CT DLP: 1338 mGycm CONTRAST: Patient injected with 100ml mL of Isovue 300. TECHNIQUE: Axial images at 3 mm thick sections. Reconstructed images in the coronal plane and sagitt al plane are reviewed. FINDINGS: Limited CT sections are obtained the lung apices. The lung apices appear clear. CT neck: The torus tubarius and fossa of Rosenmuller are normal. Hand Mica Plate Layer spaces are normal. Para nasal sinuses and mastoid air cells are clear. Parotid glands appear normal and symmetrical. Submandibular glands, are normal. Parapharyngeal spac es are normal. No suspicious adenopathy is evident. The hypopharynx appears within normal limits. Vocal cord level appear symmetrical. Thyroid as visualized is normal. Trachea is right of midline. Adjacent to the trachea has an air collection which appears to be the ai r-filled dilated esophagus extending to at least the level of the zayra. This finding appears to bee n present on the comparison study. This continues on the CT chest portion of the study. Osseous structures are normal. IMPRESSIONS: 1. No suspicious acute changes CT neck. EXAMINATION TYPE: CT neck chest w con DATE OF EXAM: 04/21/2019 COMPARISON: 07/07/2018 HISTORY: Chronic cough and neck pain. CT DLP: 1338 mGycm, Automated exposure control for dose reduction was used. CONTRAST: Performed injected with 100ml mL of Isovue 300. TECHNIQUE: Axial images were obtained at 5 mm thick sections. Reconstructed images are reviewed on [employer] computer in the coronal plane. FINDINGS: Portion of the thyroid visualized is normal. No suspicious lung nodules or focal infiltrates are present. No enlarged mediastinal or hilar adenopathy is evident. The ascending aorta diameter at the level o f the main pulmonary artery is 3.0 cm. The main pulmonary artery diameter at the bifurcation is 2.3 cm. Coronary artery calcification is noted. Limited CT sections are obtained through the upper abdomen. Abdomen is essentially unremarkable. IMPRESSIONS: 1. No suspicious acute changes CT chest
== END | disposition home or self-care (01) ==
LOC: RADCTMAIN 14:24
PROVIDERS: ATTEND Family Medicine
DX: R05 Cough (principal)
CPT/HCPCS: 82565; 84520; 70491; 71260; 36415; Q9967

== ENCOUNTER → 2019-09-23 | Outpatient (CLI) | payer MEDICARE ==
--- NOTE | 2019-09-25 21:27 | CT ---
EXAMINATION TYPE: CT abdomen pelvis w con DATE OF EXAM: 09/23/2019 COMPARISON: 04/08/2018 HISTORY: 74-year-old female Muscle spasm in stomach, left lower quadrant pain TECHNIQUE: Contiguous axial scanning of the abdomen and pelvis following administration of 100 ml Iso lamar 300 IV contrast. Delayed images through the kidneys and coronal/sagittal reconstructions perform ed. CT DLP: 1856.5 mGycm Automated exposure control for dose reduction was used. FINDINGS: Heart normal size without pericardial effusion. Lung bases clear without pleural effusion. No focal liver lesion or biliary ductal dilatation. Stable focal 7 mm calcification right lateral asp ect of the pancreatic head. Otherwise, pancreas appears within normal limits. Portal venous system is patent. Cholecystectomy clips. Adrenal glands and spleen appear within normal limits. A couple cortical hypodensities in the kidneys measure up to 1.4 cm, too small for accurate CT charac terization, likely small cortical cysts. No dilated small bowel, free fluid, or free air. No mesenteric or retroperitoneal lymphadenopathy. Comparison study prior mesh repair at the level of the umbilicus. Appendix not identified. There is some mild circumferential wall thickening of the transverse colon a nd moderate overall stool burden. Bladder is urine distended. Uterus surgically absent. Multiple pelvic phleboliths. Some soft tissue t hickening along the pelvic sidewalls likely relating to the ovaries. No abnormal fluid collection in the pelvis or pelvic lymphadenopathy. Bones: Right hip screw fixation across the femoral neck region. Degenerative changes of both hips. De generative disc disease greatest at L2-L3 and L3-L4 with facet arthropathy mid to lower lumbar spine. IMPRESSION: 1. MILD CIRCUMFERENTIAL WALL THICKENING INVOLVING THE TRANSVERSE COLON. CORRELATE FOR A NONSPECIFIC M ILD COLITIS. 2. MODERATE STOOL BURDEN. 3. SUGGESTION OF PRIOR MESH REPAIR AT THE LEVEL OF THE UMBILICUS.
== END | disposition home or self-care (01) ==
LOC: RADUSWWP 12:11
PROVIDERS: ATTEND Family Medicine
DX: R10.32 Left lower quadrant pain (principal); I73.9 Peripheral vascular disease, unspecified
CPT/HCPCS: 82565; 84520; 93922; 74177; 36415; Q9967

== ENCOUNTER 2019-10-01 11:55 | Inpatient (IN) | payer MEDICARE ==
[2019-10-01] MEDS ORDERED: SODIUM CHLORIDE 0.9% 1,000 ML IV ONE ×2 (12:31)
[2019-10-01] MEDS ORDERED: MORPHINE SULFATE 4 MG/ML SYRINGE IV STA (12:31)
--- NOTE | 2019-10-01 12:41 | ED ---
Fall HPI - General Chief Complaint: Fall Stated Complaint: fall Time Seen by Provider: 10/01/19 12:12 Source: patient, RN notes reviewed, old records reviewed Mode of arrival: wheelchair - History of Present Illness Initial Comments: This is a 74 old female, she presents today for evaluation for fall 3 days ago. Patient poor she was going to the bathroom, stood up and felt dizzy and lightheaded. She reports that she fell and hit her head, complains of some back pain, knee pain and hip pain. Patient reports after her fall herself brother caught her from the bathroom to her bedroom. Since that time she's been having pain with getting up and walking in his also complaining some left shoulder pain. Patient states that she had to wear brief that she felt that she ingested too much pain to get up and to the bathroom. She denies any loss control of her urine or bowel habits. She knows that she has to use the bathroom. Patient states that she's had no nausea or vomiting. She's had a history of chronic abdominal pain for the past 3 months. She had an outpatient CAT scan done which showed colitis earlier this week prior to her fall. Patient is on blood thinners. - Related Data Home Medications Medication Instructions Recorded Confirmed oxyCODONE-APAP 10-325MG [Percocet 1 tab PO QID PRN 10/25/15 01/07/18 10-325 mg] ALPRAZolam [Xanax] 0.5 mg PO HS 08/27/17 01/07/18 Furosemide [Lasix] 20 mg PO DAILY 08/27/17 01/07/18 Potassium Chloride [K-Tab ER] 8 meq PO DAILY 08/27/17 01/07/18 Levothyroxine Sodium [Synthroid] 200 mcg PO DAILY 11/17/17 01/07/18 Gabapentin [Neurontin] 800 mg PO TID 12/10/17 01/07/18 Insulin Aspart [NovoLOG] See Protocol SQ ACHS PRN 12/10/17 01/07/18 Insulin Detemir (Levemir) [Levemir] 20 unit SQ QAM 12/10/17 01/07/18 metFORMIN HCL [Glucophage] 1,000 mg PO BID 12/10/17 01/07/18 Warfarin Sodium 4 mg PO DAILY@1700 01/04/18 01/07/18 Previous Rx's Medication Instructions Recorded Metoprolol Succinate (ER) [Toprol 50 mg PO DAILY tab.er.24h 08/08/15 XL] Allergies Allergy/AdvReac Type Severity Reaction Status Date / Time nickel [Nickel] Allergy Rash/Hives Verified 10/01/19 12:01 vortioxetine hydrobromide Allergy Hallucinati Verified 10/01/19 12:01 [From Brintellix] ons adhesive tape AdvReac blister Verified 10/01/19 12:01 duloxetine HCl AdvReac Hallucinati Verified 10/01/19 12:01 [From Cymbalta] ons sertraline HCl [From Zoloft] AdvReac Hallucinati Verified 10/01/19 12:01 ons Review of Systems ROS Statement: Those systems with pertinent positive or pertinent negative responses have been documented in the HPI. ROS Other: All systems not noted in ROS Statement are negative. 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 History of Any Multi-Drug Resistant Organisms: VRE, VRE Date of last positivie culture/infection: 2008 MDRO Source:: RT KNEE Past Surgical History: Adenoidectomy, Appendectomy, Bowel Resection, Cholecystectomy, Hysterectomy, Joint Replacement, Tonsillectomy Additional Past Surgical History / Comment(s): 10/26/15 suspension microlarygo scopy with benign bx, thyroidectomy, right TKA with revision a , left ankle surgery WITH HARDWARE, 2 BOWEL SURGERIES, ORIF rt hip-07/2015, bilateral carpal tunnel releases, 1997 cardiac cath-normal, bilateral heel debridements, COLONOSCOPY, R flank "blood tumor" removed, bilateral cataract removals Past Anesthesia/Blood Transfusion Reactions: Postoperative Nausea & Vomiting (PONV) Additional Past Anesthesia/Blood Transfusion Reaction / Comment(s): Pt received blood after ORIF of the hip surgery Past Psychological History: Anxiety, Depression Smoking Status: Never smoker Past Alcohol Use History: None Reported Past Drug Use History: None Reported - Past Family History Father Family Medical History: Diabetes Mellitus Additional Family Medical History / Comment(s): Father is . Mother Family Medical History: Osteoarthritis (OA), Renal Disease Additional Family Medical History / Comment(s): Mother after kidney stone surgery and went to [facility]. She was 90 yrs. old. General Exam - General Exam Comments Initial Comments: 74-year-old female. Alert and oriented 3. No significant distress. She does appear to be somewhat uncomfortable in bed and in pain with movement. Limitations: no limitations General appearance: alert, in no apparent distress Head exam: Present: atraumatic, normocephalic, normal inspection Eye exam: Present: normal appearance, PERRL, EOMI. Absent: scleral icterus, conjunctival injection, periorbital swelling ENT exam: Present: normal exam, mucous membranes moist Neck exam: Present: normal inspection. Absent: tenderness, meningismus, ly mphadenopathy Respiratory exam: Present: normal lung sounds bilaterally Cardiovascular Exam: Present: regular rate, normal rhythm, normal heart sounds. Absent: systolic murmur, diastolic murmur, rubs, gallop, clicks GI/Abdominal exam: Present: soft, normal bowel sounds. Absent: distended, tenderness, guarding, rebound, rigid Extremities exam: Present: normal inspection, full ROM, normal capillary refill. Absent: tenderness, pedal edema, joint swelling, calf tenderness Left Shoulder Exam: Present: normal inspection, full ROM, tenderness ( is tenderness over the before meals joints and deltoid.) Upper Arm exam: Present: normal inspection, full ROM Elbow exam: Present: normal inspection, full ROM Forearm Wrist exam: Present: normal inspection, full ROM Back exam: Present: normal inspection, tenderness (over lumbar spine near tailbone. No bruising ) Course Vital Signs 10/01/19 10/01/19 10/01/19 11:56 12:15 13:00 Temperature 98.2 F Pulse Rate 105 H 100 Respiratory 8 L 18 18 Rate Blood Pressure 177/69 170/92 O2 Sat by Pulse 98 95 97 Oximetry 10/01/19 10/01/19 10/01/19 14:00 15:00 16:08 Temperature Pulse Rate 98 90 88 Respiratory 18 18 18 Rate Blood Pressure 165/75 143/79 171/87 O2 Sat by Pulse 97 96 98 Oximetry Medical Decision Making - Medical Decision Making Patient is a 74-year-old female who presents emergency Department 3 days post fall. She started up after going to the bathroom and complained of some dizziness and lightheadedness. She reports that she then fell, hitting her he ad, reports a brief loss of consciousness, she states that her legs fell behind her, and she fell onto her right hip, and back. She also complains of left shoulder pain. Patient was started on IV and given pain medication. She has significant pain with any palpation over her lower back or pelvis area. She has full range of motion of the toes and dorsalis pedis pulses intact. History of right hip fracture in the past which [facility]. At this time x-rays of the hip and pelvis are negative for any acute fracture. Lumbar spine x-ray was completed due to pain after the fall and shows an L5 compression fracture which is new. CT of her brain and C-spine are negative for any acute process. Chest x-ray shows no acute process as well. Blood work and EKG showed no acute abnormalities. Urinalysis is negative for infection. We attempted multiple times to give Patient IV pain medication including 2 rounds of morphine, Toradol Solu-Medrol and Norflex. She continues to have significant pain with any motion or movement of her back. She states that she's been stay ing in bed for the past few days due to pain. She denies saddle anesthesia this time, but feels that her ligaments in her groin are stretched. I discussed the case with Dr. Griffin whom discussed the case with Dr. Mcclelland to have Patient minute for pain control after a trauma of her fall for this L5 compression fracture. There will be consult to patient PCP Dr. Griffin, whom will likely take the case after Dr. Mcclelland signs off. - Lab Data Result diagrams: 10/01/19 12:45 10/01/19 12:45 Lab Results 10/01/19 10/01/19 10/01/19 Range/Units 12:45 12:45 12:45 WBC 5.5 (3.8-10.6) k/uL RBC 4.50 (3.80-5.40) m/uL Hgb 12.7 (11.4-16.0) gm/dL Hct 40.0 (34.0-46.0) % MCV 88.9 (80.0-100.0) fL MCH 28.2 (25.0-35.0) pg MCHC 31.7 (31.0-37.0) g/dL RDW 13.6 (11.5-15.5) % Plt Count 181 (150-450) k/uL Neutrophils % 73 % Lymphocytes % 15 % Monocytes % 5 % Eosinophils % 4 % Basophils % 1 % Neutrophils # 4.0 (1.3-7.7) k/uL Lymphocytes # 0.8 L (1.0-4.8) k/uL Monocytes # 0.3 (0-1.0) k/uL Eosinophils # 0.2 (0-0.7) k/uL Basophils # 0.1 (0-0.2) k/uL PT 24.8 H (9.0-12.0) sec INR 2.6 H (<1.2) APTT 32.9 H (22.0-30.0) sec Sodium 140 (137-145) mmol/L Potassium 4.2 (3.5-5.1) mmol/L Chloride 104 (98-107) mmol/L Carbon Dioxide 28 (22-30) mmol/L Anion Gap 8 mmol/L BUN 22 H (7-17) mg/dL Creatinine 0.70 (0.52-1.04) mg/dL Est GFR (CKD-EPI)AfAm >90 (>60 ml/min/1.73 sqM) Est GFR (CKD-EPI)NonAf 86 (>60 ml/min/1.73 sqM) Glucose 335 H (74-99) mg/dL Calcium 9.1 (8.4-10.2) mg/dL Total Bilirubin 0.9 (0.2-1.3) mg/dL AST 16 (14-36) U/L ALT 18 (9-52) U/L Alkaline Phosphatase 86 (38-126) U/L Troponin I (0.000-0.034) ng/mL Total Protein 6.8 (6.3-8.2) g/dL Albumin 3.5 (3.5-5.0) g/dL Urine Color Urine Appearance (Clear) Urine pH (5.0-8.0) Ur Specific [place] (1.001-1.035) Urine Protein (Negative) Urine Glucose (UA) (Negative) Urine Ketones (Negative) Urine Blood (Negative) Urine Nitrite (Negative) Urine Bilirubin (Negative) Urine Urobilinogen (<2.0) mg/dL Ur Leukocyte Esterase (Negative) 10/01/19 10/01/19 Range/Units 12:45 15:10 WBC (3.8-10.6) k/uL RBC (3.80-5.40) m/uL Hgb (11.4-16.0) gm/dL Hct (34.0-46.0) % MCV (80.0-100.0) fL MCH (25.0-35.0) pg MCHC (31.0-37.0) g/dL RDW (11.5-15.5) % Plt Count (150-450) k/uL Neutrophils % % Lymphocytes % % Monocytes % % Eosinophils % % Basophils % % Neutrophils # (1.3-7.7) k/uL Lymphocytes # (1.0-4.8) k/uL Monocytes # (0-1.0) k/uL Eosinophils # (0-0.7) k/uL Basophils # (0-0.2) k/uL PT (9.0-12.0) sec INR (<1.2) APTT (22.0-30.0) sec Sodium (137-145) mmol/L Potassium (3.5-5.1) mmol/L Chloride (98-107) mmol/L Carbon Dioxide (22-30) mmol/L Anion Gap mmol/L BUN (7-17) mg/dL Creatinine (0.52-1.04) mg/dL Est GFR (CKD-EPI)AfAm (>60 ml/min/1.73 sqM) Est GFR (CKD-EPI)NonAf (>60 ml/min/1.73 sqM) Glucose (74-99) mg/dL Calcium (8.4-10.2) mg/dL Total Bilirubin (0.2-1.3) mg/dL AST (14-36) U/L ALT (9-52) U/L Alkaline Phosphatase (38-126) U/L Troponin I <0.012 (0.000-0.034) ng/mL Total Protein (6.3-8.2) g/dL Albumin (3.5-5.0) g/dL Urine Color Light Yellow Urine Appearance Clear (Clear) Urine pH 6.0 (5.0-8.0) Ur Specific [place] 1.018 (1.001-1.035) Urine Protein Negative (Negative) Urine Glucose (UA) 4+ H (Negative) Urine Ketones 1+ H (Negative) Urine Blood Negative (Negative) Urine Nitrite Negative (Negative) Urine Bilirubin Negative (Negative) Urine Urobilinogen <2.0 (<2.0) mg/dL Ur Leukocyte Esterase Negative (Negative) 10/01/19 16:37 EKG shows normal sinus rhythm, normal EKG noted. Ventricular rate of 83 beats were minute period. Pupils 162 ms. QS duration is 80 ms. QT QTc is 400/470 ms. - Radiology Data Radiology results: report reviewed CT of the brain shows no acute intracranial abnormality. Mild degenerative change. CT of the C-spine shows no acute osseous lesion. Mild degenerative changes are noted. X-ray of the right hip shows no acute abnormality of the pelvis or fractures. No changes. No acute abnormality of the left shoulder. C hest x-ray shows poor inspiration decreased from last exam. No heart failure. Her osteoarthritic changes noted shoulder joints. Old healed left clavicle fracture is noted. Lumbar spine x-ray shows mild compression fracture of L5 that appears acute and new compared old exam. Slight wedging of L3 vertebra is also new but probably not acute. CT lumbar spine shows acute mild compression fracture of L5 vertebrae. Mild old compression fracture of L3 vertebrae. Mild spondylitic changes. No focal bone destruction. Disposition Clinical Impression: Compression fracture of L5 vertebra, Fall, Intractable pain Disposition: ADMITTED IP TO THIS HOSP Condition: Stable Is patient prescribed a controlled substance at d/c from ED?: No Referrals: Eloy Griffin MD [Primary Care Provider] - 1-2 days Time of Disposition: 17:03
[2019-10-01 13:01] LABS: Basophils # (A) 0.1 k/uL (0-0.2); Basophils % (A) 1 %; Eosinophils # (A) 0.2 k/uL (0-0.7); Eosinophils % (A) 4 %; HGB 12.7 gm/dL (11.4-16.0); Lymphocytes # (A) 0.8 k/uL (1.0-4.8); Lymphocytes % (A) 15 %; MCH 28.2 pg (25.0-35.0); MCHC 31.7 g/dL (31.0-37.0); MCV 88.9 fL (80.0-100.0); Mean Platelet Volume 7.7; Monocytes # (A) 0.3 k/uL (0-1.0); Monocytes % (A) 5 %; Neutrophils % (A) 73 %; Platelet Count 181 k/uL (150-450); RDW 13.6 % (11.5-15.5); WBC 5.5 k/uL (3.8-10.6)
[2019-10-01 13:10] LABS: ALT 18 U/L (9-52); AST 16 U/L (14-36); African American GFR (CKD) >90 (>60 ml/min/1.73 sqM); Albumin 3.5 g/dL (3.5-5.0); Alkaline Phosphatase 86 U/L (38-126); Anion Gap 8 mmol/L; Blood Urea Nitrogen 22 mg/dL (7-17); Calcium 9.1 mg/dL (8.4-10.2); Carbon Dioxide 28 mmol/L (22-30); Chloride 104 mmol/L (98-107); Glucose 335 mg/dL (74-99); Non-African American GFR(CKD) 86 (>60 ml/min/1.73 sqM); Potassium 4.2 mmol/L (3.5-5.1); Sodium 140 mmol/L (137-145); Total Bilirubin 0.9 mg/dL (0.2-1.3); Total Protein 6.8 g/dL (6.3-8.2)
[2019-10-01 13:13] LABS: INR 2.6 (<1.2); Partial Thromboplastin Time 32.9 sec (22.0-30.0); Prothrombin Time 24.8 sec (9.0-12.0)
--- NOTE | 2019-10-01 14:02 | CT ---
EXAMINATION TYPE: CT brain daniel ye DATE OF EXAM: 10/01/2019 COMPARISON: Previous CT scan of the brain dated 02/09/2015 HISTORY: Fall CT DLP: 1333.3 mGycm Automated exposure control for dose reduction was used. TECHNIQUE: CT scan of the head and cervical spine are performed without contrast. FINDINGS: BRAIN: There are generalized changes of sulcal prominence and ventriculomegaly, compatible with atrop hic change. There is diffuse periventricular white matter lucency, compatible with chronic white abhinav er ischemic change. There is no focal lesion, mass effect or midline shift identified. I do not see e vidence of intracranial blood. Visualized portions of the paranasal sinuses and mastoids are clear. The bony calvarium is intact. IMPRESSION: 1. NO ACUTE INTRACRANIAL ABNORMALITY. 2. MILD DEGENERATIVE CHANGE. CERVICAL SPINE: There is minimal dependent atelectasis in the dependent portions of the lungs. Prevertebral soft tissues are normal. Vertebral body height and alignment are maintained. Atlantoaxial relationships are normal. There is disc space loss and hypertrophic spondylosis at C5-6 and C6-7. There is mild uncovertebral j oint disease at these levels. The facets are unremarkable. No definite protrusion is seen. No fractur es are identified. IMPRESSION: 1. No acute osseous lesion. 2. Mild degenerative change.
--- NOTE | 2019-10-01 14:13 | XR ---
EXAMINATION TYPE: XR Hip RT and AP Pelvis DATE OF EXAM: 10/01/2019 COMPARISON: 08/27/2017 HISTORY: Fall. Pain. TECHNIQUE: A single AP view of the pelvis is obtained. Two views of the right hip are obtained. FINDINGS: The pelvic ring is intact. There is old right hip nailing fixing intertrochanteric fractur e of the right femur. I see no acute fracture nor dislocation. The sacroiliac joints appear intact. P roximal right femur is intact. IMPRESSION: No acute abnormality of the pelvis and right hip. No change.
--- NOTE | 2019-10-01 14:13 | XR ---
EXAMINATION TYPE: XR shoulder complete LT DATE OF EXAM: 10/01/2019 COMPARISON: NONE HISTORY: Fall. Pain. TECHNIQUE: 3 views FINDINGS: There is some spurring at the glenohumeral joint. I see no fracture nor dislocation. IMPRESSION: No acute abnormality of the left shoulder.
--- NOTE | 2019-10-01 14:15 | XR ---
EXAMINATION TYPE: XR chest 2V DATE OF EXAM: 10/01/2019 COMPARISON: 11/23/2017 HISTORY: Fall. Pain. TECHNIQUE: Frontal and lateral views of the chest are obtained. FINDINGS: There is poor inspiration. Heart is normal. Lungs are clear of consolidation. Bony thorax appears intact. There is no heart failure. IMPRESSION: Poor inspiration that is decreased compared to last exam. No heart failure. Osteoarthrit ic changes noted in the shoulder joints. Old healed left clavicle fracture noted.
--- NOTE | 2019-10-01 14:18 | XR ---
EXAMINATION TYPE: XR lumbar spine 2 or 3V DATE OF EXAM: 10/01/2019 COMPARISON: 08/27/2017 HISTORY: Fall. Pain. TECHNIQUE: 3 views FINDINGS: There is slight compression deformity of L5 vertebral body. There is normal alignment of th e vertebra. There is disc space narrowing at L2-3 with spur formation. There is slight 10% wedging of L3 that appears old. There is no significant spurring at L5. Sacroiliac joints are intact. IMPRESSION: There is mild compression fracture of L5 that appears acute and is new compared to old ex am. There is slight wedging of L3 vertebra that is also new but is probably not acute.
[2019-10-01] MEDS ORDERED: MORPHINE SULFATE 4 MG/ML SYRINGE IVP STA (15:11)
[2019-10-01 15:25] LABS: Appearance,Urine Clear (Clear); Bilirubin,Urine Negative (Negative); Blood,Urine Negative (Negative); Color,Urine Light Yellow; Glucose,Urine (UA) 4+ (Negative); Ketones,Urine 1+ (Negative); Leukocyte Esterase,Urine Negative (Negative); Nitrite,Urine Negative (Negative); Protein,Urine Negative (Negative); Specific Gravity,Urine 1.018 (1.001-1.035); Urobilinogen,Urine <2.0 mg/dL (<2.0)
--- NOTE | 2019-10-01 15:43 | CT ---
EXAMINATION TYPE: CT lumbar spine wo con DATE OF EXAM: 10/01/2019 3:35 PM COMPARISON: None HISTORY: low back pain CT DLP: 1753.6 mGycm Automated exposure control for dose reduction was used. Unenhanced CT of the lumbar spine was performed. Bone and soft tissue window settings are submitted as well as coronal and sagittal reconstructions. Multiple axial sections were obtained from the T10 vertebra to S3 vertebra without contrast. Vertebra have normal alignment. There is 15% depression superior endplate of L5 vertebral body that a ppears to be an acute fracture. There is 10% depression with anterior wedging of the L3 vertebral bod y with anterior spurring. This is probably old fracture. There is no lumbar paraspinal mass. Posterior elements are intact. The sacroiliac joints appear intac t. IMPRESSION: Acute mild compression fracture of L5 vertebra. Old mild compression fracture L3 vertebra. Mild spond ylotic changes. No focal bone destruction.
[2019-10-01] MEDS ORDERED: ORPHENADRINE 30 MG/ML 2 ML VIAL IVP STA (15:55)
[2019-10-01] MEDS ORDERED: KETOROLAC 30 MG/ML 1 ML VIAL IVP STA (15:55)
[2019-10-01] MEDS ORDERED: methylPREDNISolone SOD SUCCI 125 MG/2 ML VIAL IV STA (15:55)
[2019-10-01] MEDS ORDERED: ACETAMINOPHEN TAB 325 MG TAB PO PRN (17:04)
[2019-10-01] MEDS ORDERED: ONDANSETRON 4 MG/2 ML VIAL IVP PRN (17:04)
[2019-10-01] MEDS ORDERED: NALOXONE 0.4 MG/ML 1 ML VIAL IV PRN (17:04)
[2019-10-01] MEDS ORDERED: IBUPROFEN 400 MG TAB PO PRN (17:04)
[2019-10-01] MEDS: SODIUM CHLORIDE 0.9% 1,000 ML IV SCH (17:33)
[2019-10-01 18:40] LABS: Glucose,Whole Blood 260 mg/dL (75-99)
[2019-10-01] MEDS: MORPHINE SULFATE 4 MG/ML SYRINGE IV PRN ×2 (19:38→23:19)
[2019-10-01 20:34] LABS: Glucose,Whole Blood 344 mg/dL (75-99)
[2019-10-01] MEDS: metFORMIN 500 MG TAB PO SCH (21:31)
[2019-10-01] MEDS: INSULIN ASPART (NovoLOG) 100 UNIT/ML VIAL SQ SCH (21:31)
[2019-10-01] MEDS: ALPRAZolam 0.5 MG TAB PO SCH (21:31)
[2019-10-01 21:39] LABS: Glucose,Whole Blood 432 mg/dL (75-99)
[2019-10-01] MEDS ORDERED: INSULIN ASPART (NovoLOG) 100 UNIT/ML VIAL SQ ONE (21:55)
[2019-10-01 23:11] LABS: Glucose,Whole Blood 397 mg/dL (75-99)
[2019-10-01] MEDS: GABAPENTIN 400 MG CAP PO SCH (23:19)
[2019-10-02] MEDS: KETOROLAC 30 MG/ML 1 ML VIAL IVP PRN ×3 (01:06→20:28)
[2019-10-02] MEDS: oxyCODONE-APAP 10-325MG 1 EACH TAB PO PRN ×2 (03:51→10:49)
[2019-10-02] MEDS: LEVOTHYROXINE 75 MCG TAB PO SCH (05:36)
[2019-10-02 06:57] LABS: Glucose,Whole Blood 352 mg/dL (75-99)
[2019-10-02] MEDS: ALPRAZolam 0.5 MG TAB PO SCH ×2 (07:17→20:21)
[2019-10-02] MEDS: TRIAMTERENE-HCTZ 37.5-25MG 1 EACH CAP PO SCH (07:17)
[2019-10-02] MEDS: PANTOPRAZOLE 40 MG TABLET PO SCH (07:17)
[2019-10-02] MEDS: GABAPENTIN 400 MG CAP PO SCH ×4 (07:17→20:21)
[2019-10-02] MEDS: metFORMIN 500 MG TAB PO SCH ×2 (07:17→20:21)
[2019-10-02] MEDS: METOPROLOL SUCCINATE (ER) 100 MG TAB.ER.24H PO SCH (07:17)
[2019-10-02] MEDS: INSULIN ASPART (NovoLOG) 100 UNIT/ML VIAL SQ SCH ×4 (07:18→20:21)
[2019-10-02] MEDS ORDERED: PANTOPRAZOLE 40 MG/10 ML VIAL IV SCH (09:00)
--- NOTE | 2019-10-02 10:16 | P.GSHP ---
History of Present Illness H&P Date: 10/02/19 Chief Complaint: Back pain The patient's a 74-year-old female who fell at home. 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 The patient's pain was getting fairly severe and she couldn't get out of bed so she presented to the emergency department. Workup showed a compression fracture in the lumbar spine. She is feeling better today. Denies any numbness or tingling in her lower extremities. She was able to get up to the bedside commode. 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 History of Any Multi-Drug Resistant Organisms: VRE, VRE Date of last positivie culture/infection: 2008 MDRO Source:: RT KNEE Past Surgical History: Adenoidectomy, Appendectomy, Bowel Resection, Cholecystectomy, Hysterectomy, Joint Replacement, Tonsillectomy Additional Past Surgical History / Comment(s): 10/26/15 suspension microlarygoscopy with benign bx, thyroidectomy, right TKA with revision a , left ankle surgery WITH HARDWARE, 2 BOWEL SURGERIES, ORIF rt hip-07/2015, bilateral carpal tunnel releases, 1997 cardiac cath-normal, bilateral heel debridements, COLONOSCOPY, R flank "blood tumor" removed, bilateral cataract removals Past Anesthesia/Blood Transfusion Reactions: Postoperative Nausea & Vomiting (PONV) Additional Past Anesthesia/Blood Transfusion Reaction / Comment(s): Pt received blood after ORIF of the hip surgery Past Psychological History: Anxiety, Depression Additional Psychological History / Comment(s): Pt has a brother that resides with her 6 months out of the year. She is currently using her wheelchair. She has a walker. She drives short distances. 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 . Smoking Status: Never smoker Past Alcohol Use History: None Reported Past Drug Use History: None Reported - Past Family History Father Family Medical History: Diabetes Mellitus Additional Family Medical History / Comment(s): Father is . Mother Family Medical History: Osteoarthritis (OA), Renal Disease Additional Family Medical History / Comment(s): Mother after kidney stone surgery and went to [facility]. She was 90 yrs. old. Medications and Allergies Home Medications Medication Instructions Recorded Confirmed Type oxyCODONE-APAP 10-325MG [Percocet 1 tab PO QID PRN 10/25/15 10/01/19 History 10-325 mg] ALPRAZolam [Xanax] 0.5 mg PO BID 08/27/17 10/01/19 History Gabapentin [Neurontin] 800 mg PO QID 12/10/17 10/01/19 History metFORMIN HCL [Glucophage] 1,000 mg PO BID 12/10/17 10/01/19 History Dulaglutide [Trulicity] 1.5 mg SQ WE 10/01/19 10/01/19 History Insulin Degludec [Tresiba] See Protocol SQ DAILY 10/01/19 10/01/19 History Levothyroxine Sodium 150 mcg PO DAILY 10/01/19 10/01/19 History Metoprolol Succinate (ER) [Toprol 100 mg PO DAILY 10/01/19 10/01/19 History Xl] Omeprazole 40 mg PO DAILY 10/01/19 10/01/19 History Triamterene/Hydrochlorothiazid 1 cap PO DAILY 10/01/19 10/01/19 History [Dyazide 37.5-25 Capsule] Warfarin [Coumadin] 2.5 mg PO HS 10/01/19 10/01/19 History Allergies Allergy/AdvReac Type Severity Reaction Status Date / Time nickel [Nickel] Allergy Rash/Hives Verified 10/01/19 17:36 vortioxetine hydrobromide Allergy Hallucinati Verified 10/01/19 17:36 [From Brintellix] ons adhesive tape AdvReac blister Verified 10/01/19 17:36 duloxetine HCl AdvReac Hallucinati Verified 10/01/19 17:36 [From Cymbalta] ons sertraline HCl [From Zoloft] AdvReac Hallucinati Verified 10/01/19 17:36 ons Surgical - Exam Osteopathic Statement: *. No significant issues noted on an osteopathic structural exam other than those noted in the History and Physical/Consult. Vital Signs Temp Pulse Resp BP Pulse Ox 98.2 F 105 H 8 L 177/69 98 10/01/19 11:56 10/01/19 11:56 10/01/19 11:56 10/01/19 11:56 10/01/19 11:56 - General well developed, well nourished, no distress - Eyes normal ocular movement - ENT Missing teeth, patient reports this is due to a fall - Neck trachea midline - Respiratory normal expansion - Cardiovascular Rhythm: regular - Abdomen Abdomen: soft, non tender Results - Labs 10/01/19 12:45 10/01/19 12:45 Abnormal Lab Results - Last 24 Hours (Table) 10/01/19 10/01/19 10/01/19 Range/Units 12:45 12:45 12:45 Lymphocytes # 0.8 L (1.0-4.8) k/uL PT 24.8 H (9.0-12.0) sec INR 2.6 H (<1.2) APTT 32.9 H (22.0-30.0) sec BUN 22 H (7-17) mg/dL Glucose 335 H (74-99) mg/dL POC Glucose (mg/dL) (75-99) mg/dL Urine Glucose (UA) (Negative) Urine Ketones (Negative) 10/01/19 10/01/19 10/01/19 Range/Units 15:10 18:30 20:21 Lymphocytes # (1.0-4.8) k/uL PT (9.0-12.0) sec INR (<1.2) APTT (22.0-30.0) sec BUN (7-17) mg/dL Glucose (74-99) mg/dL POC Glucose (mg/dL) 260 H 344 H (75-99) mg/dL Urine Glucose (UA) 4+ H (Negative) Urine Ketones 1+ H (Negative) 10/01/19 10/01/19 10/02/19 Range/Units 21:27 22:57 06:46 Lymphocytes # (1.0-4.8) k/uL PT (9.0-12.0) sec INR (<1.2) APTT (22.0-30.0) sec BUN (7-17) mg/dL Glucose (74-99) mg/dL POC Glucose (mg/dL) 432 H 397 H 352 H (75-99) mg/dL Urine Glucose (UA) (Negative) Urine Ketones (Negative) Diabetes panel 10/01/19 Range/Units 12:45 Sodium 140 (137-145) mmol/L Potassium 4.2 (3.5-5.1) mmol/L Chloride 104 (98-107) mmol/L Carbon Dioxide 28 (22-30) mmol/L BUN 22 H (7-17) mg/dL Creatinine 0.70 (0.52-1.04) mg/dL Glucose 335 H (74-99) mg/dL Calcium 9.1 (8.4-10.2) mg/dL AST 16 (14-36) U/L ALT 18 (9-52) U/L Alkaline Phosphatase 86 (38-126) U/L Total Protein 6.8 (6.3-8.2) g/dL Albumin 3.5 (3.5-5.0) g/dL Calcium panel 10/01/19 Range/Units 12:45 Calcium 9.1 (8.4-10.2) mg/dL Albumin 3.5 (3.5-5.0) g/dL Pituitary panel 10/01/19 Range/Units 12:45 Sodium 140 (137-145) mmol/L Potassium 4.2 (3.5-5.1) mmol/L Chloride 104 (98-107) mmol/L Carbon Dioxide 28 (22-30) mmol/L BUN 22 H (7-17) mg/dL Creatinine 0.70 (0.52-1.04) mg/dL Glucose 335 H (74-99) mg/dL Calcium 9.1 (8.4-10.2) mg/dL Adrenal panel 10/01/19 Range/Units 12:45 Sodium 140 (137-145) mmol/L Potassium 4.2 (3.5-5.1) mmol/L Chloride 104 (98-107) mmol/L Carbon Dioxide 28 (22-30) mmol/L BUN 22 H (7-17) mg/dL Creatinine 0.70 (0.52-1.04) mg/dL Glucose 335 H (74-99) mg/dL Calcium 9.1 (8.4-10.2) mg/dL Total Bilirubin 0.9 (0.2-1.3) mg/dL AST 16 (14-36) U/L ALT 18 (9-52) U/L Alkaline Phosphatase 86 (38-126) U/L Total Protein 6.8 (6.3-8.2) g/dL Albumin 3.5 (3.5-5.0) g/dL - Imaging Additional studies: CT of the lumbar spine reviewed Assessment and Plan (1) Compression fracture of L5 vertebra Current Visit: Yes Status: Acute Code(s): S32.050A - WEDGE COMPRESSION FRACTURE OF FIFTH LUMBAR VERTEBRA, INIT SNOMED Code(s): 885004353 (2) Fall Current Visit: Yes Status: Acute Code(s): W19.XXXA - UNSPECIFIED FALL, INITIAL ENCOUNTER SNOMED Code(s): 1323007 (3) Intractable pain Current Visit: Yes Status: Acute Code(s): R52 - PAIN, UNSPECIFIED SNOMED Code(s): 66165013 Plan: Surgically the patient is stable. I discussed the case with Dr. Griffin. He will assume care. Order physical therapy and evaluation by Dr. Esteban. DVT and ulcer prophylaxis.
[2019-10-02 11:58] LABS: Glucose,Whole Blood 354 mg/dL (75-99)
[2019-10-02] MEDS: MORPHINE SULFATE 4 MG/ML SYRINGE IV PRN (15:08)
[2019-10-02 17:04] LABS: Glucose,Whole Blood 326 mg/dL (75-99)
[2019-10-02 17:36] LABS: INR 2.8 (<1.2); Prothrombin Time 27.3 sec (9.0-12.0)
[2019-10-02] MEDS: SODIUM CHLORIDE 0.9% 1,000 ML IV SCH (18:53)
[2019-10-02] MEDS ORDERED: WARFARIN 2.5 MG TAB PO ONE (19:00)
[2019-10-02 20:17] LABS: Glucose,Whole Blood 314 mg/dL (75-99)
[2019-10-03] MEDS: LEVOTHYROXINE 75 MCG TAB PO SCH (05:44)
[2019-10-03 06:36] LABS: INR 3.2 (<1.2); Prothrombin Time 31.2 sec (9.0-12.0)
[2019-10-03 07:08] LABS: Glucose,Whole Blood 278 mg/dL (75-99)
[2019-10-03] MEDS: PANTOPRAZOLE 40 MG TABLET PO SCH (07:33)
[2019-10-03] MEDS: INSULIN ASPART (NovoLOG) 100 UNIT/ML VIAL SQ SCH ×4 (07:33→21:11)
[2019-10-03] MEDS: oxyCODONE-APAP 10-325MG 1 EACH TAB PO PRN ×2 (07:36→14:02)
--- NOTE | 2019-10-03 08:33 | P.CNOR ---
History of Present Illness - [facility] Consult date: 10/03/19 Requesting physician: Annamarie Mcclelland Consult reason: fracture (L3 and L5 compression fracture deformities), low back pain History of present illness: Patient is a very pleasant 74-year-old female who is seen in the bedside for further evaluation for lumbar compression fracture deformities. Patient sustained a fall approximately 3 days ago when she was going to the restroom and fell on her buttocks on the top floor. She has had increased back pain since that time. After symptoms were not improving, she presented to [facility] for further evaluation. X-ray and CT imaging were taken at that time which showed evidence of compression fracture deformities at L3 and L5. She's had some improvement of her back pain since her hospital but has significant back pain with any increased activities. Her pain is centered along the midline of the lower lumbar spine. Her pain is exacerbated with movements spine, after prolonged sitting, coughing, and sneezing. She denies any specific lower extremity radiculopathy bilaterally. Patient does have a significant medical history including orthopedic treatment. 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 Mckeon. She states approximately 2 years ago she sustained a fracture to her right hip and femur requiring surgical fixation performed by Dr. Aguilar. She states following the total knee arthroplasty, she was able to ambulate with assistance of a cane. Following her femur and hip fracture she's been using a walker to aid in ambulation. She states probably 4 years ago she also began to experience significant bilateral weakness in the feet. She is unable to perform dorsiflexion or extensor hallucis longus bilaterally. Patient states she was previously fitted with AFO braces, which she felt helped, but states she was told these brace were not be appropriate braces for her. She was then fitted with a lace up braces and bilateral boots without any benefit. She continues to have difficulty in ambulation and uses a walker. She does admit to significant neuropathy bilateral lower extremities. She has a medical history which includes diabetes mellitus, CVA/TIA. 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 History of Any Multi-Drug Resistant Organisms: VRE, VRE Year Discovered:: 2008 MDRO Source:: RT KNEE Past Surgical History: Adenoidectomy, Appendectomy, Bowel Resection, Cholecystectomy, Hysterectomy, Joint Replacement, Tonsillectomy Additional Past Surgical History / Comment(s): 10/26/15 suspension microlarygoscopy with benign bx, thyroidectomy, right TKA with revision a , left ankle surgery WITH HARDWARE, 2 BOWEL SURGERIES, ORIF rt hip-07/2015, bilateral carpal tunnel releases, 1997 cardiac cath-normal, bilateral heel debridements, COLONOSCOPY, R flank "blood tumor" removed, bilateral cataract removals Past Anesthesia/Blood Transfusion Reactions: Postoperative Nausea & Vomiting (PONV) Additional Past Anesthesia/Blood Transfusion Reaction / Comm: Pt received blood after ORIF of the hip surgery Past Psychological History: Anxiety, Depression Additional Psychological History / Comment(s): Pt has a brother that resides with her 6 months out of the year. She is currently using her wheelchair. She has a walker. She drives short distances. [facility] . Smoking Status: Never smoker Past Alcohol Use History: None Reported Past Drug Use History: None Reported - Past Family History Father Family Medical History: Diabetes Mellitus Additional Family Medical History / Comment(s): Father is . Mother Family Medical History: Osteoarthritis (OA), Renal Disease Additional Family Medical History / Comment(s): Mother after kidney stone surgery and went to [facility]. She was 90 yrs. old. Medications and Allergies Home Medications Medication Instructions Recorded Confirmed Type oxyCODONE-APAP 10-325MG [Percocet 1 tab PO QID PRN 10/25/15 10/01/19 History 10-325 mg] ALPRAZolam [Xanax] 0.5 mg PO BID 08/27/17 10/01/19 History Gabapentin [Neurontin] 800 mg PO QID 12/10/17 10/01/19 History metFORMIN HCL [Glucophage] 1,000 mg PO BID 12/10/17 10/01/19 History Dulaglutide [Trulicity] 1.5 mg SQ WE 10/01/19 10/01/19 History Insulin Degludec [Tresiba] See Protocol SQ DAILY 10/01/19 10/01/19 History Levothyroxine Sodium 150 mcg PO DAILY 10/01/19 10/01/19 History Metoprolol Succinate (ER) [Toprol 100 mg PO DAILY 10/01/19 10/01/19 History Xl] Omeprazole 40 mg PO DAILY 10/01/19 10/01/19 History Triamterene/Hydrochlorothiazid 1 cap PO DAILY 10/01/19 10/01/19 History [Dyazide 37.5-25 Capsule] Warfarin [Coumadin] 2.5 mg PO HS 10/01/19 10/01/19 History Allergies Allergy/AdvReac Type Severity Reaction Status Date / Time nickel [Nickel] Allergy Rash/Hives Verified 10/01/19 17:36 vortioxetine hydrobromide Allergy Hallucinati Verified 10/01/19 17:36 [From Brintellix] ons adhesive tape AdvReac blister Verified 10/01/19 17:36 duloxetine HCl AdvReac Hallucinati Verified 10/01/19 17:36 [From Cymbalta] ons sertraline HCl [From Zoloft] AdvReac Hallucinati Verified 10/01/19 17:36 ons Physical Examination Physical exam: Patient is awake, alert, and oriented 3 Vital signs stable Good chest excursion with deep inspiration and expiration Abdomen soft nontender Examination of lumbar spine reveals skin is intact with no abrasions, lacerations, or bruises; no erythema, purulence or signs of infection Significant pain with palpation along the midline of the mid and lower lumbar spine Dorsiflexion positive sustained bilaterally Patient is unable to perform any active range of motion with plantarflexion and extensor hallucis longus strength is 0/5 Patient is able to slowly lift legs off the bed independently Patient is able to sense palpation over the bilateral calves Decreased sensation with palpation over the feet bilaterally No lower extremity hyperreflexia bilaterally Straight leg test negative bilateral lower extremities Evidence of a well-healed incision over the right knee No signs or symptoms of DVT; no calf pain No pain with internal and external rotation of the hips bilaterally Results Pertinent studies: X-rays lumbosacral spine taken on 10/01/2019: L3 slight wedge compression fracture deformity of indeterminate age with approximately 10% height loss; Acute L5 compression fracture deformity with approximately 15% height loss as compared to previous imaging taken on 08/27/2017; L2-3 degenerative disc disease and anterior osteophytic spurring CT of the lumbar spine taken on 10/01/2019: L3 slight wedge compression fracture deformity of indeterminate age with approximately 10% height loss; Acute L5 compression fracture deformity with approximately 15% height loss; L2-3 degenerative disc disease and anterior osteophytic spurring; no focal bone destruction; mild spondylitic change - Labs Labs: Abnormal Lab Results - Last 24 Hours (Table) 10/02/19 10/02/19 10/02/19 Range/Units 11:46 16:52 17:00 PT 27.3 H (9.0-12.0) sec INR 2.8 H (<1.2) POC Glucose (mg/dL) 354 H 326 H (75-99) mg/dL 10/02/19 10/03/19 10/03/19 Range/Units 20:06 05:58 06:55 PT 31.2 H (9.0-12.0) sec INR 3.2 H (<1.2) POC Glucose (mg/dL) 314 H 278 H (75-99) mg/dL H & H 10/01/19 Range/Units 12:45 Hgb 12.7 (11.4-16.0) gm/dL Hct 40.0 (34.0-46.0) % Coagulation 10/01/19 10/02/19 10/03/19 Range/Units 12:45 17:00 05:58 INR 2.6 H 2.8 H 3.2 H (<1.2) Result Diagrams: 10/01/19 12:45 10/01/19 12:45 Assessment and Plan Assessment: Assessment: Acute low back pain status post fall Acute L5 compression fracture deformity L3 compression fracture deformity of indeterminate age Bilateral lower extremity weakness Bilateral footdrop History of right total knee arthroplasty History of right femur and right hip surgical fixation due to fracture History of diabetes mellitus History of CVA/TIA Bilateral neuropathy (1) Intractable low back pain Current Visit: Yes Status: Acute Code(s): M54.5 - LOW BACK PAIN SNOMED Code(s): 64350255791229240 (2) Compression fracture of L3 vertebra Current Visit: Yes Status: Acute Code(s): S32.030A - WEDGE COMPRESSION FRACTURE OF THIRD LUMBAR VERTEBRA, INIT SNOMED Code(s): 927705984 (3) Traumatic compression fracture of L5 vertebra Current Visit: Yes Status: Acute Code(s): S32.050A - WEDGE COMPRESSION FRACTURE OF FIFTH LUMBAR VERTEBRA, INIT SNOMED Code(s): 238522804 (4) Status post fall Current Visit: Yes Status: Acute Code(s): Z91.81 - HISTORY OF FALLING SNOMED Code(s): 686891530 (5) Bilateral foot-drop Current Visit: Yes Status: Acute Code(s): M21.371 - FOOT DROP, RIGHT FOOT; M21.372 - FOOT DROP, LEFT FOOT SNOMED Code(s): 3010245 (6) Lower extremity weakness Current Visit: Yes Status: Acute Code(s): R29.898 - OTH SYMPTOMS AND SIGNS INVOLVING THE MUSCULOSKELETAL SYSTEM SNOMED Code(s): 726790397 (7) History of total knee arthroplasty Current Visit: Yes Status: Acute Code(s): Z96.659 - PRESENCE OF UNSPECIFIED ARTIFICIAL KNEE JOINT SNOMED Code(s): 6799321903368 (8) History of CVA (cerebrovascular accident) Current Visit: Yes Status: Acute Code(s): Z86.73 - PRSNL HX OF TIA (TIA), AND CEREB INFRC W/O RESID DEFICITS SNOMED Code(s): 698034415 (9) Neuropathy Current Visit: Yes Status: Acute Code(s): G62.9 - POLYNEUROPATHY, UNSPECIFIED SNOMED Code(s): 314476851 (10) History of fracture of right hip Current Visit: Yes Status: Acute Code(s): Z87.81 - PERSONAL HISTORY OF (HEALED) TRAUMATIC FRACTURE SNOMED Code(s): 709630553 (11) Diabetes mellitus Current Visit: No Status: Acute Code(s): E11.9 - TYPE 2 DIABETES MELLITUS WITHOUT COMPLICATIONS SNOMED Code(s): 85481214 Plan: Plan: 1. After reviewing of imaging, physical examination the patient, and further discussion with the patient, will currently planned to continue with conservative treatment at this time. At this time we'll plan for bracing for her known compression fracture deformities at L3 and L5 status post fall. A prescription has been written and provided to case management for an Exos LSO brace. Once this brace is delivered and fitted appropriately, patient should wear this brace while sitting upright at greater than 45, during increase activities, during ambulation. Brace is not have to or while lying in bed or while bathing. Following fitting of this brace, patient is clear for discharge from an orthopedic spine standpoint. Following discharge, patient may follow-up with Skip Rehman PA-C or Dr. Ry Esteban at [facility]. Patient also has history of bilateral footdrop and has significant weakness with dorsiflexion and extensor hallucis longus. A prescription is written for bilateral AFO braces and provided to case management. The brace may be obtained through [employer] and [employer]. It may take time to obtain these AFO braces as moldings may need to be made first. Patient will be cleared for discharge once her LSO brace has been delivered and fitted properly. Patient may continue with obtaining AFO braces an outpatient setting. 2. Patient will continue be seen exam by other medical providers for her other medical diagnoses including medicine Time with Patient: Greater than 30 (Including obtaining history, physical exam ination, reviewing of imaging, and dictation.)
[2019-10-03] MEDS: ALPRAZolam 0.5 MG TAB PO SCH ×2 (08:53→21:11)
[2019-10-03] MEDS: GABAPENTIN 400 MG CAP PO SCH ×4 (08:53→21:11)
[2019-10-03] MEDS: metFORMIN 500 MG TAB PO SCH ×2 (08:53→21:11)
[2019-10-03] MEDS: METOPROLOL SUCCINATE (ER) 100 MG TAB.ER.24H PO SCH (08:53)
[2019-10-03] MEDS: MORPHINE SULFATE 4 MG/ML SYRINGE IV PRN ×2 (10:36→17:26)
[2019-10-03 12:08] LABS: Glucose,Whole Blood 279 mg/dL (75-99)
--- NOTE | 2019-10-03 13:40 | PN ---
PROGRESS NOTE This 74-year-old white female who had a fall at home. She had acute low back pain, status post fall, acute L5 compression fracture, L3 compression fracture old, L5 is new, bilateral lower extremity weakness, bilateral footdrop, history of total right knee arthroscopy and right femur, right hip surgical fixation due to fracture, diabetes mellitus, CVA, TIA, diabetes mellitus type 2, bilateral neuropathy, was seen by Orthopedics today. Reviewed all other imaging and wanted conservative treatment being done. They are going to get a brace for her for known compression fractures, status post fall, then she can either go home or go to a prison. Try to get her an Exos LSO brace and will possibly be able to discharge her home after she gets this brace. Bilateral AFO braces were also given for her legs and she will be cleared for discharge once all braces are done or also rehab placement. Sugars are good. Vital signs are good. Lungs are clear. CARDIOVASCULAR: S1, S2. HEMATOLOGY: Negative Homans. PLAN: As mentioned above. MMODL / IJN: [id number] /
[2019-10-03] MEDS: KETOROLAC 30 MG/ML 1 ML VIAL IVP PRN (14:01)
[2019-10-03 15:23] VITALS: BMI 31.6
[2019-10-03] MEDS: TRIAMTERENE-HCTZ 37.5-25MG 1 EACH CAP PO SCH (15:28)
[2019-10-03 16:59] LABS: Glucose,Whole Blood 279 mg/dL (75-99)
[2019-10-03] MEDS ORDERED: WARFARIN 1 MG TAB PO ONE (18:00)
[2019-10-03] MEDS: SODIUM CHLORIDE 0.9% 1,000 ML IV SCH (21:03)
[2019-10-03 21:18] LABS: Glucose,Whole Blood 207 mg/dL (75-99)
[2019-10-04 02:24] VITALS: TEMP 97.7
[2019-10-04] MEDS: LEVOTHYROXINE 75 MCG TAB PO SCH (05:48)
[2019-10-04] MEDS: INSULIN ASPART (NovoLOG) 100 UNIT/ML VIAL SQ SCH ×2 (07:17→12:01)
[2019-10-04] MEDS: GABAPENTIN 400 MG CAP PO SCH ×2 (07:18→12:00)
[2019-10-04] MEDS: ALPRAZolam 0.5 MG TAB PO SCH (07:18)
[2019-10-04] MEDS: METOPROLOL SUCCINATE (ER) 100 MG TAB.ER.24H PO SCH (07:18)
[2019-10-04] MEDS: metFORMIN 500 MG TAB PO SCH (07:18)
[2019-10-04] MEDS: PANTOPRAZOLE 40 MG TABLET PO SCH (07:18)
[2019-10-04] MEDS: TRIAMTERENE-HCTZ 37.5-25MG 1 EACH CAP PO SCH (07:19)
[2019-10-04] MEDS: MORPHINE SULFATE 4 MG/ML SYRINGE IV PRN (07:21)
[2019-10-04 07:22] LABS: INR 2.9 (<1.2); Prothrombin Time 28.1 sec (9.0-12.0)
[2019-10-04 07:30] LABS: Glucose,Whole Blood 244 mg/dL (75-99)
[2019-10-04 07:48] VITALS: BP 102/66; PULSE 74; RESP 16
--- NOTE | 2019-10-04 10:28 | P.DS ---
Providers Date of admission: 10/01/19 17:04 Expected date of discharge: 10/04/19 Attending physician: Eloy Griffin Consults: 10/01/19 17:04 Consult Physician Stat Consulting Provider: Eloy Griffin Consult Reason/Comments: fall, compression fracture Do you want consulting provider notified?: Yes 10/02/19 10:16 Consult Physician Routine Consulting Provider: Malik Esteban Consult Reason/Comments: Lumbar compression fracture Do you want consulting provider notified?: Yes Primary care physician: Eloy Griffin [facility] Course: Final Diagnoses: Acute low back pain status post fall Acute L5 compression fracture L3 compression fracture of indeterminate age Bilateral lower extremity weakness Bilateral foot drop History of right hemiarthroplasty History of right femur and right hip surgical fixation secondary to fracture Bilateral neuropathy Diabetes mellitus History of CVA, TIA Hospital course: This is a 74-year-old female admitted with acute low back pain status post fall and multiple other medical issues. X-rays and CT of lumbosacral spine reporting acute L5 compression fracture, L3 compression fracture of indeterminate age .Evaluated by orthopedic surgery with conservative treatment recommended at this time. LSO and bilateral AFO braces ordered. Significant clinical improvement. Patient has been cleared for discharge by orthopedics once LSO brace delivered. Patient is being discharged home with home care, PT, in a stable condition with guarded prognosis. PHYSICAL EXAM: GENERAL: Alert and oriented 3, no acute distress. CARDIOVASCULAR: S1, S2 regular.. No murmur RESPIRATION: Breath sounds diminished in the bases. ABDOMEN: Soft, nondistended, nontender . No guarding. no masses palpable. Positive bowel sounds. HEMATOLOGY: Negative Homans. The impression and plan of care has been dictated as directed. : I performed a history and examination of this patient, discussed the same with the dictator. I agree with the dictator's note ,documented as a scribe. Any additional findings or plans will be noted. Patient Condition at Discharge: Stable Plan - Discharge Summary Discharge Rx Participant: No New Discharge Prescriptions: Continue oxyCODONE-APAP 10-325MG [Percocet 10-325 mg] 1 tab PO QID PRN PRN Reason: Pain ALPRAZolam [Xanax] 0.5 mg PO BID Gabapentin [Neurontin] 800 mg PO QID metFORMIN HCL [Glucophage] 1,000 mg PO BID Triamterene/Hydrochlorothiazid [Dyazide 37.5-25 Capsule] 1 cap PO DAILY Warfarin [Coumadin] 2.5 mg PO HS Dulaglutide [Trulicity] 1.5 mg SQ WE Metoprolol Succinate (ER) [Toprol XL] 100 mg PO DAILY Levothyroxine Sodium 150 mcg PO DAILY Insulin Degludec [Tresiba] See Protocol SQ DAILY Omeprazole 40 mg PO DAILY Discharge Medication List oxyCODONE-APAP 10-325MG [Percocet 10-325 mg] 1 tab PO QID PRN 10/25/15 [History] ALPRAZolam [Xanax] 0.5 mg PO BID 08/27/17 [History] Gabapentin [Neurontin] 800 mg PO QID 12/10/17 [History] metFORMIN HCL [Glucophage] 1,000 mg PO BID 12/10/17 [History] Dulaglutide [Trulicity] 1.5 mg SQ WE 10/01/19 [History] Insulin Degludec [Tresiba] See Protocol SQ DAILY 10/01/19 [History] Levothyroxine Sodium 150 mcg PO DAILY 10/01/19 [History] Metoprolol Succinate (ER) [Toprol XL] 100 mg PO DAILY 10/01/19 [History] Omeprazole 40 mg PO DAILY 10/01/19 [History] Triamterene/Hydrochlorothiazid [Dyazide 37.5-25 Capsule] 1 cap PO DAILY 10/01/19 [History] Warfarin [Coumadin] 2.5 mg PO HS 10/01/19 [History] Follow up Appointment(s)/Referral(s): Skip Rehman PAC [PHYSICIAN HAND SAMPLE MAKER] - 2 Weeks (Patient may follow-up with Skip Rehman PA-C or Dr. Ry Esteban at [facility] in 2-3 weeks following discharge. ) Eloy Griffin MD [Primary Care Provider] - 3 Days [facility] Visiting Nurse, [NON-STAFF] - As Needed Billie Logan [NON-STAFF] - As Needed (Bilateral AFO braces and LSO brace.) Ambulatory/Diagnostic Orders: Prothrombin Time INR [LAB.AMB] Time Frame: 10/06/19, Location: None Selected Activity/Diet/Wound Care/Special Instructions: Pending delivery of LSO brace;bilateral AFO braces-OP r/t molding. 1. Patient may wear LSO brace for comfort and support while sitting upright at greater than 45, while working with therapy, and while ambulating; patient does not have to wear the brace while lying in bed or bathing 2. Patient should avoid excessive bending, twisting, and lifting; no lifting greater than 10 pounds 3. Patient may wear AFO braces for the bilateral lower extremities in ambulation as needed 4. Patient is encouraged to continue using a walker in ambulation as needed Diet: Consistent carb, Coumadin diet Activity: Limited until follow up Discharge Disposition: HOME WITH HOME HEALTH SERVICES
[2019-10-04 11:48] LABS: Glucose,Whole Blood 215 mg/dL (75-99)
[2019-10-04] MEDS: oxyCODONE-APAP 10-325MG 1 EACH TAB PO PRN (12:50)
[2019-10-04] MEDS ORDERED: WARFARIN 1 MG TAB PO ONE (18:00)
[2019-10-05] MEDS ORDERED: PATIENT'S OWN MED (Dulaglutide [Trulicity] 1.5 MG) SQ SCH (12:00)
== END 2019-10-04 14:28 | disposition home health service (06) | DRG 552 ==
LOC: EC 11:55 → 4MS4W 17:04 → 4SSUR 17:46
PROVIDERS: ADMIT Family Medicine; ATTEND Family Medicine
DX: S32.050A Wedge compression fracture of fifth lumbar vertebra, initial encounter for closed fracture (principal); I69.954 Hemiplegia and hemiparesis following unspecified cerebrovascular disease affecting left non-dominant side; E11.42 Type 2 diabetes mellitus with diabetic polyneuropathy; E11.51 Type 2 diabetes mellitus with diabetic peripheral angiopathy without gangrene; E11.65 Type 2 diabetes mellitus with hyperglycemia; G89.11 Acute pain due to trauma; M51.36 Other intervertebral disc degeneration, lumbar region; M21.371 Foot drop, right foot; M21.372 Foot drop, left foot; R40.2362 Coma scale, best motor response, obeys commands, at arrival to emergency department; R40.2142 Coma scale, eyes open, spontaneous, at arrival to emergency department; R40.2252 Coma scale, best verbal response, oriented, at arrival to emergency department; E89.0 Postprocedural hypothyroidism; F41.9 Anxiety disorder, unspecified; F32.9 Major depressive disorder, single episode, unspecified; G89.29 Other chronic pain; K52.9 Noninfective gastroenteritis and colitis, unspecified; M25.512 Pain in left shoulder; M25.551 Pain in right hip; R32 Unspecified urinary incontinence; R26.2 Difficulty in walking, not elsewhere classified; S32.030S Wedge compression fracture of third lumbar vertebra, sequela; Z79.01 Long term (current) use of anticoagulants; Z79.84 Long term (current) use of oral hypoglycemic drugs; Z79.890 Hormone replacement therapy; Z79.899 Other long term (current) drug therapy; Z91.81 History of falling; Z87.81 Personal history of (healed) traumatic fracture; Z96.651 Presence of right artificial knee joint; Z90.49 Acquired absence of other specified parts of digestive tract; Z90.710 Acquired absence of both cervix and uterus; Z98.890 Other specified postprocedural states; Z86.19 Personal history of other infectious and parasitic diseases; Z85.850 Personal history of malignant neoplasm of thyroid; Z98.42 Cataract extraction status, left eye; Z98.41 Cataract extraction status, right eye; Z88.8 Allergy status to other drugs, medicaments and biological substances; Z91.048 Other nonmedicinal substance allergy status; W01.0XXA Fall on same level from slipping, tripping and stumbling without subsequent striking against object, initial encounter; Y92.003 Bedroom of unspecified non-institutional (private) residence as the place of occurrence of the external cause; Z83.3 Family history of diabetes mellitus; Z82.61 Family history of arthritis; Z84.1 Family history of disorders of kidney and ureter
CPT/HCPCS: 36415; 70450; 71046; 72100; 72125; 72131; 73502; 80053; 81003; 83036; 84484; 85025; 85610; 85730; 93005; 96361; 96374; 96375; 96376; 99285

== ENCOUNTER 2019-10-07 10:49 | Inpatient (IN) | payer MEDICARE ==
[2019-10-07 12:09] LABS: Glucose,Whole Blood 288 mg/dL (75-99)
[2019-10-07] MEDS: INSULIN ASPART (NovoLOG) 100 UNIT/ML VIAL SQ SCH ×3 (12:31→20:12)
[2019-10-07] MEDS ORDERED: HYDROmorphone 1 MG/ML 1 ML SYRINGE IM PRN (14:22)
[2019-10-07] MEDS: HYDROmorphone 1 MG/ML 1 ML SYRINGE IVP PRN ×2 (14:56→19:29)
[2019-10-07] MEDS: SODIUM CHLORIDE 0.9% 1,000 ML IV SCH (14:59)
[2019-10-07 15:05] LABS: Basophils # (A) 0.2 k/uL (0-0.2); Basophils % (A) 2 %; Eosinophils # (A) 0.3 k/uL (0-0.7); Eosinophils % (A) 3 %; HCT 41.2 % (34.0-46.0); HGB 13.1 gm/dL (11.4-16.0); Lymphocytes # (A) 2.1 k/uL (1.0-4.8); Lymphocytes % (A) 18 %; MCH 28.1 pg (25.0-35.0); MCHC 31.8 g/dL (31.0-37.0); MCV 88.5 fL (80.0-100.0); Mean Platelet Volume 7.8; Monocytes # (A) 0.5 k/uL (0-1.0); Monocytes % (A) 4 %; Neutrophils # (A) 8.1 k/uL (1.3-7.7); Neutrophils % (A) 72 %; Platelet Count 321 k/uL (150-450); RBC 4.65 m/uL (3.80-5.40); RDW 13.9 % (11.5-15.5); WBC 11.3 k/uL (3.8-10.6)
[2019-10-07 15:13] LABS: Albumin 3.6 g/dL (3.5-5.0); Calcium 9.3 mg/dL (8.4-10.2); Potassium 4.3 mmol/L (3.5-5.1)
[2019-10-07 15:15] VITALS: BMI 31.2
[2019-10-07 15:20] LABS: INR 1.1 (<1.2); Prothrombin Time 11.4 sec (9.0-12.0)
[2019-10-07 17:06] LABS: Glucose,Whole Blood 173 mg/dL (75-99)
[2019-10-07] MEDS: metFORMIN 500 MG TAB PO SCH (17:14)
[2019-10-07] MEDS: GABAPENTIN 400 MG CAP PO SCH ×2 (17:16→21:53)
[2019-10-07 19:58] LABS: Glucose,Whole Blood 264 mg/dL (75-99)
[2019-10-07] MEDS ORDERED: WARFARIN 2.5 MG TAB PO SCH (21:00)
[2019-10-08] MEDS: oxyCODONE-APAP 10-325MG 1 EACH TAB PO PRN ×3 (01:46→17:44)
[2019-10-08] MEDS: SODIUM CHLORIDE 0.9% 1,000 ML IV SCH ×2 (01:56→16:18)
[2019-10-08] MEDS: LEVOTHYROXINE 75 MCG TAB PO SCH (05:12)
[2019-10-08 06:54] LABS: Basophils % (A) 1 %; Eosinophils # (A) 0.2 k/uL (0-0.7); Eosinophils % (A) 4 %; HCT 33.3 % (34.0-46.0); HGB 10.6 gm/dL (11.4-16.0); Hypochromasia Slight; Lymphocytes # (A) 1.7 k/uL (1.0-4.8); Lymphocytes % (A) 34 %; MCV 90.6 fL (80.0-100.0); Mean Platelet Volume 6.8; Monocytes # (A) 0.4 k/uL (0-1.0); Monocytes % (A) 7 %; Neutrophils # (A) 2.7 k/uL (1.3-7.7); Neutrophils % (A) 52 %; Platelet Count 192 k/uL (150-450); RBC 3.67 m/uL (3.80-5.40); RDW 13.7 % (11.5-15.5); WBC 5.1 k/uL (3.8-10.6)
[2019-10-08 07:01] LABS: INR 1.1 (<1.2); Prothrombin Time 11.5 sec (9.0-12.0)
[2019-10-08 07:15] LABS: Glucose,Whole Blood 175 mg/dL (75-99)
[2019-10-08] MEDS: HYDROmorphone 1 MG/ML 1 ML SYRINGE IVP PRN ×4 (07:45→20:47)
[2019-10-08] MEDS: GABAPENTIN 400 MG CAP PO SCH ×4 (07:46→20:46)
[2019-10-08] MEDS: PANTOPRAZOLE 40 MG TABLET PO SCH (07:46)
[2019-10-08] MEDS: metFORMIN 500 MG TAB PO SCH ×2 (07:46→17:38)
[2019-10-08] MEDS: METOPROLOL SUCCINATE (ER) 100 MG TAB.ER.24H PO SCH (07:46)
[2019-10-08] MEDS: INSULIN ASPART (NovoLOG) 100 UNIT/ML VIAL SQ SCH ×4 (07:47→20:47)
--- NOTE | 2019-10-08 09:24 | P.CNOR ---
History of Present Illness - [facility] Consult date: 10/08/19 Consult reason: low back pain History of present illness: Patient's very pleasant 74-year-old female who we are seeing in regards to her low back pain. She was seen a Dwain 5 days ago in regard to similar issue when she is having pain in her lower back. She had been having pain since sustaining a fall approximately a week and a half ago and was complaining of lower back pain. She is found have evidence of compression deformities at L3 and L5. Apparently at L3 fracture was chronic and the L5 fracture was acute due to the fall. We started treatment with an LSO brace for her which she has been trying to use. She has continued have pain in her back and some difficulty. She does have history of bilateral foot drop and chronic weakness at her lower extremities which has been unchanged. We have ordered her bilateral AFO braces for her lower extremities when we last saw her on October 03. She states that earlier this year she was quite active and remain quite active. She had actually driven down to [place] and driven back after taking care of her friend just in December. She has had chronic weakness in her lower extremities but has remained a community and later with her walker. She says however that the pain at her lower back is significantly debilitating for her and she is hardly able to get around. She does not have any new pain in her lower extremities. Review of Systems Denies any fever chills or night sweats. Denies any nausea vomiting. Denies a ny chest pain. Denies any visual changes. Her lower extremity to have bilateral lower extremity weakness for which she says she has had tried a number of braces with limited benefit. She does not note any new weakness in her lower extremity. No changes in bowel or bladder function. Past Medical History Past Medical History: Blood Disorder, Cancer, CVA/TIA, Diabetes Mellitus, Fibromyalgia, GERD/Reflux, Hyperlipidemia, Osteoarthritis (OA), Renal Disease, Syncope, Thyroid Disorder, Vascular Disorder Additional Past Medical History / Comment(s): Pt recently admitted to [facility] on 10/01/19 with acute lower back pain/fall with L5 compression fracture and L3 indetermined age compression fracture, bilateral lower extremity weakness, bilateral foot drop. Other hx: CVA-pt thinks in 2013 with L arm weakness, factor VIII-was started on coumadin, thyroid cancer with removal, vertigo, NIDDM type II, peripheral neuropathy bilateral hands and legs/feet, PVD, recurrent L/R heels-tx at the wound healing Center in the past- current L heel wound, past VRE infection R total knee, bowel obstructions x 2 with sx, chronic pain in doe k and legs/feet, urine incontinence at time, nephrolithiasis-passed stone on her own, bronchitis. History of Any Multi-Drug Resistant Organisms: MRSA, VRE, VRE Year Discovered:: 2008 R knee per pt MDRO Source:: 03/03/16 L foot Past Surgical History: Adenoidectomy, Appendectomy, Bowel Resection, Griselda cystectomy, Hysterectomy, Joint Replacement, Orthopedic Surgery, Tonsillectomy Additional Past Surgical History / Comment(s): 10/26/15 suspension microlarygoscopy with benign bx, thyroidectomy, right TKA with infection-I&D then a revision, left ankle surgery WITH HARDWARE, 2 BOWEL SURGERIES, ORIF rt hip-07/2015, bilateral carpal tunnel releases, 1997 cardiac cath-normal, bilateral heel debridements, COLONOSCOPY, R flank "blood tumor" removed, bilateral cataract removals Past Anesthesia/Blood Transfusion Reactions: Postoperative Nausea & Vomiting (PONV) Additional Past Anesthesia/Blood Transfusion Reaction / Comm: Pt received blood after ORIF of the hip surgery Smoking Status: Never smoker - Past Family History Father Family Medical History: Dementia Additional Family Medical History / Comment(s): Father of dementia at the age of 91 yrs. Mother Family Medical History: Osteoarthritis (OA), Renal Disease Additional Family Medical History / Comment(s): Mother after kidney stone surgery and went to correction. She was 90 yrs. old. Medications and Allergies Home Medications Medication Instructions Recorded Confirmed Type oxyCODONE-APAP 10-325MG [Percocet 1 tab PO QID PRN 10/25/15 10/07/19 History 10-325 mg] ALPRAZolam [Xanax] 0.5 mg PO BID PRN 08/27/17 10/07/19 History Gabapentin [Neurontin] 800 mg PO QID 12/10/17 10/07/19 History metFORMIN HCL [Glucophage] 1,000 mg PO BID 12/10/17 10/07/19 History Dulaglutide [Trulicity] 1.5 mg SQ WE 10/01/19 10/07/19 History Insulin Degludec [Tresiba] See Protocol SQ DAILY 10/01/19 10/07/19 History Levothyroxine Sodium 150 mcg PO DAILY 10/01/19 10/07/19 History Metoprolol Succinate (ER) [Toprol 100 mg PO DAILY 10/01/19 10/07/19 History XL] Omeprazole 40 mg PO DAILY 10/01/19 10/07/19 History Triamterene/Hydrochlorothiazid 1 cap PO DAILY 10/01/19 10/07/19 History [Dyazide 37.5-25 Capsule] Warfarin [Coumadin] 2.5 mg PO HS 10/01/19 10/07/19 History Allergies Allergy/AdvReac Type Severity Reaction Status Date / Time nickel [Nickel] Allergy Rash/Hives Verified 10/07/19 13:37 adhesive tape AdvReac blister Verified 10/07/19 13:37 duloxetine HCl AdvReac Hallucinati Verified 10/07/19 13:37 [From Cymbalta] ons sertraline HCl [From Zoloft] AdvReac Hallucinati Verified 10/07/19 13:37 ons vortioxetine hydrobromide AdvReac Hallucinati Verified 10/07/19 13:37 [From Brintellix] ons Physical Examination Osteopathic Statement: *. No significant issues noted on an osteopathic structural exam other than those noted in the History and Physical/Consult. - L Spine: dermatomal strength & reflexes bilateral Strength: ankle dorsiflexion: 0/5 (At her back she has painful whenever she tries to move. There is no point tenderness. There is no skin breakdown. Lower extremity is have severe weakness with dorsiflexion and EHL. She is able to lift her legs up off the bed limitedly.) Strength: ankle inversion: 0/5 Strength: ankle eversion: 0/5 Strength: great toe flexion: 0/5 Strength: great toe extension: 0/5 Results - Labs Labs: Abnormal Lab Results - Last 24 Hours (Table) 10/07/19 10/07/19 10/07/19 Range/Units 12:07 14:52 14:52 WBC 11.3 H (3.8-10.6) k/uL RBC (3.80-5.40) m/uL Hgb (11.4-16.0) gm/dL Hct (34.0-46.0) % Neutrophils # 8.1 H (1.3-7.7) k/uL BUN 19 H (7-17) mg/dL Glucose 220 H (74-99) mg/dL POC Glucose (mg/dL) 288 H (75-99) mg/dL 10/07/19 10/07/19 10/08/19 Range/Units 17:05 19:55 06:31 WBC (3.8-10.6) k/uL RBC 3.67 L (3.80-5.40) m/uL Hgb 10.6 L (11.4-16.0) gm/dL Hct 33.3 L (34.0-46.0) % Neutrophils # (1.3-7.7) k/uL BUN (7-17) mg/dL Glucose (74-99) mg/dL POC Glucose (mg/dL) 173 H 264 H (75-99) mg/dL 10/08/19 Range/Units 07:11 WBC (3.8-10.6) k/uL RBC (3.80-5.40) m/uL Hgb (11.4-16.0) gm/dL Hct (34.0-46.0) % Neutrophils # (1.3-7.7) k/uL BUN (7-17) mg/dL Glucose (74-99) mg/dL POC Glucose (mg/dL) 175 H (75-99) mg/dL H & H 10/07/19 10/08/19 Range/Units 14:52 06:31 Hgb 13.1 10.6 L (11.4-16.0) gm/dL Hct 41.2 33.3 L (34.0-46.0) % Coagulation 10/07/19 10/08/19 Range/Units 14:52 06:31 INR 1.1 1.1 (<1.2) Result Diagrams: 10/08/19 06:31 10/07/19 14:52 - Diagnostic results CT Scan - lumbar: report reviewed, image reviewed (The patient has computed tomography scan of her lumbar spine at her last admission on October 03 which showed evidence of compression deformities at L3 and L5. The L3 fracture. Be chronic with L5 venture appeared to be acute. There is possibly 20% height loss at both L3 and L5. She has significant disc degeneration with facet arthrosis as well.) Assessment and Plan Assessment: Acute L5 compression fracture, traumatic due to a fall Chronic L3 compression fracture, stable Bilateral lower extremity weakness, chronic with bilateral foot drop Limited ability to ambulate Intractable low back pain Plan: Acute L5 compression fracture, traumatic due to a fall Chronic L3 compression fracture, stable Bilateral lower extremity weakness, chronic with bilateral foot drop Limited ability to ambulate Intractable low back pain Has a new L5 compression fracture which has been causing her severe pain and change in her overall activity. I think that she is a candidate for kyphoplasty at that level as this may give her some stability. We tried to treat her with LSO bracing but she is having great difficulty with this thus far. I do not think that we will plan specific treatment at L3 at this time. For her L5 1 kyphoplasty would entail surgical intervention with a minimally invasive technique for placement of cement within the vertebral body. This would help the fracture itself but would not be treating her arthritis and degenerative disease. I discussed this with her and she understands. She would like to cons ider the possibility of surgical intervention and discussed with her family as well. I had contacted the operating room and there is no availability for Thursday and if she were to pursue surgery. May not happen until Thursday afternoon. In the meantime we will obtain further imaging of her low back and her pelvis and she does have some pain around her hips as well. She does have history of fracture at her right hip. It is okay for her to mobilize with her LSO brace on in the meantime. Should and shouldn't continue with her pain control. We will continue follow her closely.
[2019-10-08 11:31] LABS: Glucose,Whole Blood 254 mg/dL (75-99)
[2019-10-08] MEDS: TRIAMTERENE-HCTZ 37.5-25MG 1 EACH CAP PO SCH (14:21)
--- NOTE | 2019-10-08 16:15 | XR ---
EXAMINATION TYPE: XR lumbar spine 2 or 3V DATE OF EXAM: 10/08/2019 Comparison: 10/01/2019 Clinical History: 74-year-old female Follow-up for L3 and L5 fractures Findings: Stable minimal anterior wedging and superior endplate height loss of L3. No progressive vertebral bod y height loss of L5 with similar superior endplate irregularity. Trace grade 1 anterolisthesis of L4- L5 with facet arthropathy. Impression: 1. Stable minimal anterior wedging of L3. 2. Stable superior endplate fracture of L5 with overall preserved vertebral body height at this time.
[2019-10-08 16:17] LABS: Glucose,Whole Blood 179 mg/dL (75-99)
--- NOTE | 2019-10-08 16:18 | XR ---
EXAMINATION TYPE: XR pelvis AP view DATE OF EXAM: 10/08/2019 COMPARISON: 10/01/2019 HISTORY: 74-year-old female follow-up bilateral hip pain after L3 and L5 fractures. TECHNIQUE: AP view FINDINGS: There is dynamic hip screw fixation of the proximal right femur. Chronically impacted appearance of t he right femoral neck remains unchanged. No interval displaced fracture is evident. Mild degenerative change at both hips. IMPRESSION: Redemonstrated dynamic hip screw fixation of the right hip with appearance of chronically impacted fe moral neck deformity. No interval displaced fracture.
[2019-10-08] MEDS ORDERED: WARFARIN 2 MG TAB PO ONE (18:00)
[2019-10-08 20:39] LABS: Glucose,Whole Blood 244 mg/dL (75-99)
--- NOTE | 2019-10-08 21:44 | HP ---
HISTORY AND PHYSICAL 74-year-old female comes to the hospital due to frequent falls and retractable back syndrome status post vertebral fall fracture, unable to take care of herself at home. She has L3 fracture, chronic and L4-L5 fracture that is acute, hospital brace did not work. She has severe pain, unable ambulate, 10/10 pain. She came to the hospital for vertebroplasty and unable to ambulate due to significant weakness and pain. She will definitely need correction placement at this point and vertebroplasty, most likely. She is a diabetic. History of chronic degenerative disc disease, diabetic neuropathy, insulin-dependent diabetes mellitus, hypertension, coronary artery disease, CVA, TIA, and fibromyalgia, GERD, hypothyroidism, vascular disorder, osteoarthritis, dyslipidemia. REVIEW OF SYMPTOMS: 14-point review of systems negative except for mentioned in HPI. PAST MEDICAL HISTORY: History of thyroid cancer removal, vertigo, peripheral neuropathy, chronic pain in legs and feet, urinary incontinence. SURGERIES: Adenoidectomy, appendectomy, bowel resection, cholecystectomy, hysterectomy, joint replacement, orthopedic surgery, tonsillectomy, 2 bowel surgeries, bilateral carpal tunnel releases, heel debridements. FAMILY HISTORY: Father with dementia age 91. Mother osteoarthritis, renal disease. MEDICATIONS: Include oxycodone, Xanax, Neurontin, metformin, Trulicity, Tarceva, levothyroxine, Toprol-XL, omeprazole, Dyazide, Coumadin. ALLERGIES: CYMBALTA, NICKEL, ADHESIVES, ZOLOFT, BRINTELLIX. PHYSICAL EXAM: Strength 0/5 in ankles, toes. Severe weakness lower extremities. Able to lift the legs off the bed minimally. Cardiovascular S1-S2. Lungs scattered wheeze. Hematology negative Homans. Psych: Fair mood and affect. NEUROLOGIC: Alert and oriented x3. LABORATORY DATA: White count 11.3, BUN 19, glucose 220, hemoglobin 10.6. CT scan lumbar spine last admission compression L3 and L5. ASSESSMENT: 1. Acute L5 compression fracture, chronic L3 compression fracture. 2. Bilateral lower extremities weakness. 3. Diabetic neuropathy. 4. Bilateral foot drop. 5. Prior cerebrovascular accident. 6. Diabetes mellitus. 7. Hypertension. 8. Coronary artery disease. 9. Traumatic severe pain. 10.Irretractable back pain. PLAN: Hopefully to get a vertebroplasty done which will give her some symptomatic relief. Renew pain control at this time for possible Thursday afternoon. L5 kyphoplasty will be done on Thursday. Continue pain control. MMODL / IJN: [id number] /
[2019-10-09] MEDS: oxyCODONE-APAP 10-325MG 1 EACH TAB PO PRN ×3 (01:39→14:05)
[2019-10-09] MEDS: LEVOTHYROXINE 75 MCG TAB PO SCH (05:13)
[2019-10-09] MEDS: SODIUM CHLORIDE 0.9% 1,000 ML IV SCH ×2 (05:13→18:01)
[2019-10-09 07:06] LABS: INR 1.2 (<1.2); Prothrombin Time 12.2 sec (9.0-12.0)
[2019-10-09 07:06] LABS: Glucose,Whole Blood 225 mg/dL (75-99)
[2019-10-09] MEDS: INSULIN ASPART (NovoLOG) 100 UNIT/ML VIAL SQ SCH ×4 (07:36→21:12)
[2019-10-09] MEDS: metFORMIN 500 MG TAB PO SCH ×2 (07:37→17:59)
[2019-10-09] MEDS: METOPROLOL SUCCINATE (ER) 100 MG TAB.ER.24H PO SCH (07:37)
[2019-10-09] MEDS: PANTOPRAZOLE 40 MG TABLET PO SCH (07:37)
[2019-10-09] MEDS: TRIAMTERENE-HCTZ 37.5-25MG 1 EACH CAP PO SCH (07:37)
[2019-10-09] MEDS: GABAPENTIN 400 MG CAP PO SCH ×4 (07:37→21:11)
[2019-10-09] MEDS: HYDROmorphone 1 MG/ML 1 ML SYRINGE IVP PRN ×3 (11:03→21:11)
[2019-10-09 11:18] LABS: Glucose,Whole Blood 198 mg/dL (75-99)
[2019-10-09 16:17] LABS: Glucose,Whole Blood 176 mg/dL (75-99)
[2019-10-09] MEDS ORDERED: WARFARIN 3 MG TAB PO ONE (18:00)
[2019-10-09 20:45] LABS: Glucose,Whole Blood 196 mg/dL (75-99)
--- NOTE | 2019-10-09 21:09 | PN ---
PROGRESS NOTE 74-year-old white female, who has intractable pain in her back from vertebral fractures. She is scheduled for vertebroplasty on Thursday. She is unable to move her right leg, limited range of motion out of the bed. Sugars are on Accu-Chek protocol. Cardiovascular: S1, S2. Lungs transmitted upper airway sounds. GI soft, nontender. Psych: She has fair mood and affect. Neurologic: Alert and oriented x3. ASSESSMENT: 1. Irretractable pain in the lumbar spine, vertebral fracture, intractable pain secondary to this. 2. Hypertension. 3. Diabetes mellitus. 4. History of coronary artery disease. 5. Anxiety. 6. Severe neuropathy. Sugars are in the mid 100s-200. Plan is to do vertebroplasty on Thursday. Continue with PT, OT, fpc placement, status post vertebroplasty. MMODL / IJN: [id number] /
[2019-10-10] MEDS: oxyCODONE-APAP 10-325MG 1 EACH TAB PO PRN ×3 (01:05→14:16)
[2019-10-10] MEDS: LEVOTHYROXINE 75 MCG TAB PO SCH (05:07)
[2019-10-10] MEDS: HYDROmorphone 1 MG/ML 1 ML SYRINGE IVP PRN ×4 (05:07→21:29)
[2019-10-10 07:08] LABS: Glucose,Whole Blood 226 mg/dL (75-99)
[2019-10-10 07:46] LABS: INR 1.3 (<1.2); Prothrombin Time 13.3 sec (9.0-12.0)
[2019-10-10] MEDS: INSULIN ASPART (NovoLOG) 100 UNIT/ML VIAL SQ SCH ×4 (07:54→19:42)
[2019-10-10] MEDS: PANTOPRAZOLE 40 MG TABLET PO SCH (07:54)
[2019-10-10] MEDS: GABAPENTIN 400 MG CAP PO SCH ×4 (07:54→19:42)
[2019-10-10] MEDS: metFORMIN 500 MG TAB PO SCH ×2 (07:54→17:16)
[2019-10-10] MEDS: METOPROLOL SUCCINATE (ER) 100 MG TAB.ER.24H PO SCH (07:54)
[2019-10-10] MEDS: TRIAMTERENE-HCTZ 37.5-25MG 1 EACH CAP PO SCH (07:54)
[2019-10-10] MEDS ORDERED: SENNOSIDES-DOCUSATE SODIUM 1 EACH TAB PO PRN (08:25)
--- NOTE | 2019-10-10 08:28 | P.PN ---
Progress Note - Text Progress Note Date: 10/10/19 Orthopedic spine: History of present illness: Patient is a very pleasant 74-year-old female who is seen in the bedside for further evaluation for lumbar compression fracture deformities. She was seen and examined that a previous admission on 10/03/2019. She was discharged on 10/04/2019. Her pain has not been adequately controlled in the outpatient setting. She presented back to [facility] for further evaluation. Patient sustained a fall approximately 10 days ago when she was going to the restroom and fell on her buttocks on the top floor. She has had increased back pain since that time. After symptoms were not improving, she presented to [facility] for further evaluation on 10/01/2019. X-ray and CT imaging were taken at that time which showed evidence of compression fracture deformities at L3 and L5. Reviewing of imaging shows decompression fracture deformity at L5 appears cute while the compression fracture at L3 appears chronic. She continues to experience significant back pain with any increased activities. Her pain is centered along the midline of the lower lumbar spine. Her pain is exacerbated with movements spine, after prolonged sitting, coughing, and sneezing. She denies any specific lower extremity radiculopathy bilaterally. She was fitted with an LSO brace during her admittance to the hospital which she does feel provide some control her symptoms. Patient does have a significant medical history including orthopedic treatment. 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 Mckeon. She states approximately 2 years ago she sustained a fracture to her right hip and femur requiring surgical fixation performed by Dr. Aguilar. She states following the total knee arthroplasty, she was able to ambulate with assistance of a cane. Following her femur and hip fracture she's been using a walker to aid in ambulation. She states probably 4 years ago she also began to experience significant bilateral weakness in the feet. She is unable to perform dorsiflexion or extensor hallucis longus bilaterally. Patient states she was previously fitted with AFO braces, which she felt helped, but states she was told these brace were not be appropriate braces for her. She was then fitted with a lace up braces and bilateral boots without any benefit. She continues to have difficulty in ambulation and uses a walker. During her previous admission prescriptions were written and provided to case management for AFO braces for the bilateral lower extremities. These braces have not yet been delivered and fitted. She does admit to significant neuropathy bilateral lower extremities. She has a medical history which includes diabetes mellitus, CVA/TIA. She has also been experiencing some constipation. She is passing gas and her abdomen is soft but she has not had a recent bowel movement. She does feel she is feeling conservative treatment and would like to proceed forward with surgical intervention in regards to her acute L5 compression fracture deformity. Also since her previous admittance to the hospital, she states she has sustained an ulcer to the right heel. Her right heel is currently wrapped with dressing. Physical exam: Patient is awake, alert, and oriented 3 Vital signs stable Good chest excursion with deep inspiration and expiration Abdomen soft nontender Examination of lumbar spine reveals skin is intact with no abrasions, lacerations, or bruises; no erythema, purulence or signs of infection Significant pain with palpation along the midline of the lower lumbar spine Dorsiflexion positive sustained bilaterally Patient is unable to perform any active range of motion with plantarflexion and extensor hallucis longus strength is 0/5 Patient is able to slowly lift legs off the bed independently Patient is able to sense palpation over the bilateral calves Decreased sensation with palpation over the feet bilaterally No lower extremity hyperreflexia bilaterally Straight leg test negative bilateral lower extremities Evidence of a well-healed incision over the right knee No signs or symptoms of DVT; no calf pain No pain with internal and external rotation of the hips bilaterally Dressing over the right heel due to foot ulcer Pertinent studies: X-rays lumbosacral spine taken on 10/08/2019: Stable compression fracture deformities at L3 and L5 without progressive height loss as compared to recent imaging taken on 10/01/2019; L4-5 slight spondylolisthesis and facet arthropathy; L2-3 degenerative disc disease and anterior osteophytic spurring X-ray the pelvis taken on 10/08/2019: Redemonstration of dynamic right hip screw fixation with appearance of chronically impacted femoral neck deformity with no interval displaced fracture X-rays lumbosacral spine taken on 10/01/2019: L3 slight wedge compression fracture deformity of indeterminate age with approximately 10% height loss; Acute L5 compression fracture deformity with approximately 15% height loss which was not evident on CT imaging taken on 09/25/2019; L2-3 degenerative disc disease and anterior osteophytic spurring CT of the lumbar spine taken on 10/01/2019: L3 slight wedge compression fracture deformity of indeterminate age with approximately 10% height loss; Acute L5 compression fracture deformity with approximately 15% height loss; L2-3 degenerative disc disease and anterior osteophytic spurring; no focal bone destruction; mild spondylitic change CT of the abdomen and pelvis taken on 09/25/2019: Evidence of L3 wedge compression fracture deformity with approximately 10% height loss; no evidence of L5 compression fracture deformity Assessment: Acute low back pain status post fall Acute L5 compression fracture deformity Chronic L3 compression fracture deformity Bilateral lower extremity weakness Bilateral footdrop Right foot ulcer Constipation History of right total knee arthroplasty History of right femur and right hip surgical fixation due to fracture History of diabetes mellitus History of CVA/TIA Bilateral neuropathy Plan: 1. After reviewing of imaging, physical examination the patient, and further discussion with the patient, we will currently plan to proceed forward with surgical intervention at this time. Reviewing of imaging shows patient does have evidence of acute L5 compression fracture deformity status post fall. She has evidence of a chronic compression fracture deformity at L3. She's had significant difficulty with mobilization and activities given her significant low back pain after her recent fall. Patient feels she's had difficulty controlling her pain in the outpatient setting. At this time we'll plan for surgical intervention. The proposed surgical interventions and L5 kyphoplasty and biopsy. We will currently plan for surgical intervention tomorrow, 10/11/2019, if cleared by medicine. Patient will continue to be able to eat today and will become nothing by mouth status starting at midnight, 10/11/2019. I discussed these issues with the patient at length and I answered all of their questions to the best of my ability and the patient understands. I discussed the risk of surgical intervention and alternative treatment options. I answered all the patient's questions the best of my ability. The patient would like to proceed forward with surgical intervention and will sign informed consent. Patient may continue to use her LSO brace for comfort support while sitting upright at greater than 45, during increase activities, and during ambulation. Brace does not have to or while lying in bed or while bathing. She is encouraged to continue using a walker to aid in ambulation. Patient also has history of bilateral footdrop and has significant weakness with dorsiflexion and extensor hallucis longus. Her prescription since have previously been written for bilateral AFO braces and provided to case management. His braces may be obtained through [employer]. It was discussed again with the patient that it may take time to obtain these AFO braces as moldings may need to be made first. We will plan to prescribe Senokot-S 1 tab twice a day as needed for constipation 2. Patient will continue be seen and examined by medicine for her other medical diagnoses including recent right foot ulcer. Patient will also need surgical clearance prior to surgical intervention tomorrow.
[2019-10-10] MEDS: SODIUM CHLORIDE 0.9% 1,000 ML IV SCH ×2 (09:16→19:43)
[2019-10-10 12:20] LABS: Glucose,Whole Blood 201 mg/dL (75-99)
[2019-10-10] MEDS ORDERED: DEXAMETHASONE SOD PHOSPHATE 10 MG/ML 1 ML VIAL IV ONE (14:25)
[2019-10-10] MEDS ORDERED: LIDOCAINE 1% 20 ML VIAL (10MG/ML) FOR IV START INTRADERMA PRN (14:25)
[2019-10-10] MEDS ORDERED: HYDROmorphone 0.5 MG/0.5 ML SYRINGE IVP PRN (14:25)
[2019-10-10] MEDS ORDERED: LACTATED RINGERS 1,000 ML IV SCH (14:30)
--- NOTE | 2019-10-10 15:16 | P.PN ---
Subjective Progress Note Date: 10/10/19 This is a 74-year-old female admitted with intractable lumbar spine, vertebral fracture and multiple other medical issues. Lumbar spine/pelvis x-rays reporting L5 compression fracture secondary to fall, chronic L3 compression fracture. Evaluated by orthopedic surgery and patient is scheduled for kyphopla sty on Thursday. Coumadin on hold. Complains of bilateral lower back pain that radiates down right leg. His chest pain, palpitations or increased shortness of breath. Patient reports she uses 2 L at night at home.Blood sugars better controlled. Afebrile. Objective - Vital Signs Vital signs: Vital Signs Temp 98 F 10/10/19 07:00 Pulse 64 10/10/19 07:00 Resp 16 10/10/19 07:00 BP 124/65 10/10/19 07:00 Pulse Ox 96 10/10/19 07:00 Intake & Output 10/09/19 10/10/19 10/10/19 18:59 06:59 18:59 Intake Total 960 Balance 960 Intake: Oral 960 Other: Voiding Method Toilet # Voids 1 1 3 - Exam PHYSICAL EXAM: VITAL SIGNS: As above GENERAL: Sitting up in bed, no acute distress HEENT: Conjunctivae normal. eyes normal. NECK: No JVD. No thyroid enlargement. No LNs CARDIOVASCULAR: S1, S2 regular.. No murmur RESPIRATION: Breath sounds diminished in the bases. No rhonchi or crackles. No bronchial breathing. ABDOMEN: Soft, nontender . No guarding. no masses palpable. No ascites, No hepatosplenomegaly.Bowel sounds heard. Extremities: Trace edema right lower leg, right heel dressing clean dry and intact-prior blister. Skin dry. PSYCHIATRY: Alert and oriented X3, mood and affect normal. NERVOUS SYSTEM: Cranial N 2-12 grossly normal. Moves all 4 limbs. Diffuse weakness No focal deficits. Skin: no lesions, no rash - Labs CBC & Chem 7: 10/08/19 06:31 10/07/19 14:52 Labs: Abnormal Lab Results - Last 24 Hours (Table) 10/09/19 10/09/19 10/10/19 Range/Units 16:16 20:44 07:05 PT (9.0-12.0) sec INR (<1.2) POC Glucose (mg/dL) 176 H 196 H 226 H (75-99) mg/dL 10/10/19 10/10/19 Range/Units 07:19 12:18 PT 13.3 H (9.0-12.0) sec INR 1.3 H (<1.2) POC Glucose (mg/dL) 201 H (75-99) mg/dL Assessment and Plan Assessment: Intractable pain of the lumbar spine, L5 compression fracture secondary to fall, chronic L3 compression fracture Hypertension Diabetes mellitus CAD Neuropathy Anxiety Chronic hypoxic respiratory failure, wears 2 L nasal cannula O2 at night. Plan: Continue on current medication regime ,monitoring and symptomatic treatment. Kyphoplasty scheduled for Thursday. Coumadin on hold, receiving heparin subcu for DVT prophylaxis. PT/OT. Subacute rehab at discharge, possibly. Further recommendations to follow. The impression and plan of care has been dictated as directed. : I performed a history and examination of this patient, discussed the same with the dictator. I agree with the dictator's note ,documented as a scribe. Any additional findings or plans will be noted.
[2019-10-10 16:51] LABS: Glucose,Whole Blood 216 mg/dL (75-99)
[2019-10-10] MEDS ORDERED: WARFARIN 0.5 MG TAB PO ONE (18:00)
[2019-10-10 19:34] LABS: Glucose,Whole Blood 173 mg/dL (75-99)
[2019-10-10] MEDS ORDERED: WARFARIN 2.5 MG TAB PO SCH (21:00)
[2019-10-10] MEDS ORDERED: HEPARIN SODIUM,PORCINE 5,000 UNIT/ML 1 ML VIAL SQ SCH (21:00)
[2019-10-11] MEDS ORDERED: HYDROmorphone 1 MG/ML 1 ML SYRINGE ONE ×2 (01:30)
[2019-10-11] MEDS: LEVOTHYROXINE 75 MCG TAB PO SCH (05:48)
[2019-10-11 06:54] LABS: Glucose,Whole Blood 198 mg/dL (75-99)
[2019-10-11] MEDS: ONDANSETRON 4 MG/2 ML VIAL IVP ONE ×2 (07:00→16:59)
[2019-10-11] MEDS: metFORMIN 500 MG TAB PO SCH ×2 (07:05→16:25)
[2019-10-11] MEDS: PANTOPRAZOLE 40 MG TABLET PO SCH (07:05)
[2019-10-11] MEDS: GABAPENTIN 400 MG CAP PO SCH ×4 (07:06→20:37)
[2019-10-11] MEDS: METOPROLOL SUCCINATE (ER) 100 MG TAB.ER.24H PO SCH (07:06)
[2019-10-11] MEDS: TRIAMTERENE-HCTZ 37.5-25MG 1 EACH CAP PO SCH (07:06)
[2019-10-11] MEDS: INSULIN ASPART (NovoLOG) 100 UNIT/ML VIAL SQ SCH ×4 (07:10→20:37)
[2019-10-11 08:04] LABS: Basophils % (A) 1 %; Eosinophils # (A) 0.2 k/uL (0-0.7); Eosinophils % (A) 4 %; HCT 34.4 % (34.0-46.0); HGB 11.1 gm/dL (11.4-16.0); Lymphocytes # (A) 1.4 k/uL (1.0-4.8); Lymphocytes % (A) 27 %; MCH 29.1 pg (25.0-35.0); MCHC 32.3 g/dL (31.0-37.0); MCV 90.2 fL (80.0-100.0); Mean Platelet Volume 7.5; Monocytes # (A) 0.3 k/uL (0-1.0); Monocytes % (A) 7 %; Neutrophils % (A) 60 %; Platelet Count 242 k/uL (150-450); RBC 3.81 m/uL (3.80-5.40); RDW 13.9 % (11.5-15.5); WBC 5.1 k/uL (3.8-10.6)
[2019-10-11 08:09] LABS: INR 1.2 (<1.2); Prothrombin Time 12.8 sec (9.0-12.0)
[2019-10-11 08:28] LABS: African American GFR (CKD) >90 (>60 ml/min/1.73 sqM); Anion Gap 6 mmol/L; Blood Urea Nitrogen 12 mg/dL (7-17); Calcium 8.8 mg/dL (8.4-10.2); Carbon Dioxide 26 mmol/L (22-30); Chloride 106 mmol/L (98-107); Glucose 199 mg/dL (74-99); Non-African American GFR(CKD) 81 (>60 ml/min/1.73 sqM); Potassium 4.6 mmol/L (3.5-5.1); Sodium 138 mmol/L (137-145)
--- NOTE | 2019-10-11 08:51 | P.PN ---
Progress Note - Text Progress Note Date: 10/11/19 Orthopedic spine: History of present illness: Patient is a very pleasant 74-year-old female who is seen in the bedside for further evaluation for lumbar compression fracture deformities. She was seen and examined that a previous admission on 10/03/2019. She was discharged on 10/04/2019. Her pain has not been adequately controlled in the outpatient setting. She presented back to [facility] for further evaluation. Patient sustained a fall approximately 10 days ago when she was going to the restroom and fell on her buttocks on the top floor. She has had increased back pain since that time. After symptoms were not improving, she presented to [facility] for further evaluation on 10/01/2019. X-ray and CT imaging were taken at that time which showed evidence of compression fracture deformities at L3 and L5. Reviewing of imaging shows decompression fracture deformity at L5 appears cute while the compression fracture at L3 appears chronic. She has not had any significant improvement of her symptoms since being seen and examined yesterday. She continues to experience significant back pain with any increased activities. Her pain is centered along the midline of the lower lumbar spine. Her pain is exacerbated with movements spine, after prolonged sitting, coughing, and sneezing. She denies any specific lower extremity radiculopathy bilaterally. She was fitted with an LSO brace during her admittance to the hospital which she does feel provide some control her symptoms. She has been eating and voiding without difficulty. She is currently nothing by mouth status in anticipation for surgical intervention today. Patient does have a significant medical history including orthopedic treatment. 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 Mckeon. She states approximately 2 years ago she sustained a fracture to her right hip and femur requiring surgical fixation performed by Dr. Aguilar. She states following the total knee arthroplasty, she was able to ambulate with assistance of a cane. Following her femur and hip fracture she's been using a walker to aid in ambulation. She states probably 4 years ago she also began to experience significant bilateral weakness in the feet. She is unable to perform dorsiflexion or extensor hallucis longus bilaterally. Patient states she was previously fitted with AFO braces, which she felt helped, but states she was told these brace were not be appropriate braces for her. She was then fitted with a lace up braces and bilateral boots without any benefit. She continues to have difficulty in ambulation and uses a walker. During her previous admission prescriptions were written and provided to case management for AFO braces for the bilateral lower extremities. These braces have not yet been delivered and fitted. She does admit to significant neuropathy bilateral lower extremities. She has a medical history which includes diabetes mellitus, CVA/TIA. She has also been experiencing some constipation. She is passing gas and her abdomen is soft but she has not had a recent bowel movement. She does feel she has failed conservative treatment and would like to proceed forward with surgical intervention in regards to her acute L5 compression fracture deformity. Surgery scheduled today for an L5 kyphoplasty and biopsy. Coumadin has been placed on hold. Patient has been started on heparin. Also since her previous admittance to the hospital, she states she has sustained an ulcer to the right heel. Her right heel is currently wrapped with dressing. Physical exam: Patient is awake, alert, and oriented 3 Vital signs stable Good chest excursion with deep inspiration and expiration Abdomen soft nontender Examination of lumbar spine reveals skin is intact with no abrasions, lacerations, or bruises; no erythema, purulence or signs of infection Significant pain with palpation along the midline of the lower lumbar spine Dorsiflexion positive sustained bilaterally Patient is unable to perform any active range of motion with plantarflexion and extensor hallucis longus strength is 0/5 Patient is able to slowly lift legs off the bed independently Patient is able to sense palpation over the bilateral calves Decreased sensation with palpation over the feet bilaterally No lower extremity hyperreflexia bilaterally Straight leg test negative bilateral lower extremities Evidence of a well-healed incision over the right knee No signs or symptoms of DVT; no calf pain No pain with internal and external rotation of the hips bilaterally Dressing over the right heel due to foot ulcer Pertinent studies: X-rays lumbosacral spine taken on 10/08/2019: Stable compression fracture deformities at L3 and L5 without progressive height loss as compared to recent imaging taken on 10/01/2019; L4-5 slight spondylolisthesis and facet arthropathy; L2-3 degenerative disc disease and anterior osteophytic spurring X-ray the pelvis taken on 10/08/2019: Redemonstration of dynamic right hip screw fixation with appearance of chronically impacted femoral neck deformity with no interval displaced fracture X-rays lumbosacral spine taken on 10/01/2019: L3 slight wedge compression fracture deformity of indeterminate age with approximately 10% height loss; Acute L5 compression fracture deformity with approximately 15% height loss which was not evident on CT imaging taken on 09/25/2019; L2-3 degenerative disc disease and anterior osteophytic spurring CT of the lumbar spine taken on 10/01/2019: L3 slight wedge compression fracture deformity of indeterminate age with approximately 10% height loss; Acute L5 compression fracture deformity with approximately 15% height loss; L2-3 degenerative disc disease and anterior osteophytic spurring; no focal bone dest ruction; mild spondylitic change CT of the abdomen and pelvis taken on 09/25/2019: Evidence of L3 wedge compression fracture deformity with approximately 10% height loss; no evidence of L5 compression fracture deformity Assessment: Acute low back pain status post fall Acute L5 compression fracture deformity Chronic L3 compression fracture deformity Bilateral lower extremity weakness Bilateral footdrop Right foot ulcer Constipation History of right total knee arthroplasty History of right femur and right hip surgical fixation due to fracture History of diabetes mellitus History of CVA/TIA Bilateral neuropathy Plan: 1. We will continue with our plan as set forth yesterday. After reviewing of imaging, physical examination the patient, and further discussion with the patient, we will currently plan to proceed forward with surgical intervention at this time. Reviewing of imaging shows patient does have evidence of acute L5 compression fracture deformity status post fall. She has evidence of a chronic compression fracture deformity at L3. She's had significant difficulty with mobilization and activities given her significant low back pain after her recent fall. Patient feels she's had difficulty controlling her pain in the outpatient setting. At this time we'll plan for surgical intervention. The proposed surgical interventions and L5 kyphoplasty and biopsy. We will currently plan for surgical intervention today, 10/11/2019, if cleared by medicine. Patient is currently nothing by mouth status images patient for surgical intervention. Coumadin has been placed on hold and she has been converted to heparin. I discussed these issues with the patient at length and I answered all of their questions to the best of my ability and the patient understands. I discussed the risk of surgical intervention and alternative treatment options. The risk of surgical intervention was explained to the patient detail including but not limited to risk of bleeding, risk of infection, risk and need for further surgery, risk of decreased loss of motion of function, malunion, nonunion, hardware failure, nerve damage, paralysis, heart attack, , and as well as the fact that surgery may not alleviate symptoms. I answered all the patient's questions the best of my ability. The patient would like to proceed forward with surgical intervention and will sign informed consent. Patient may continue to use her LSO brace for comfort support while sitting upright at greater than 45, during increase activities, and during ambulation. Brace does not have to or while lying in bed or while bathing. She is encouraged to continue using a walker to aid in ambulation. Patient also has history of bilateral footdrop and has significant weakness with dorsiflexion and extensor hallucis longus. Her prescription since have previously been written for bilateral AFO braces [facility]. His braces may be obtained through [employer] and [employer]. It was discussed again with the patient that it may take time to obtain these AFO braces as moldings may need to be made first. We will plan to prescribe Senokot-S 1 tab twice a day as needed for constipation 2. Patient will continue be seen and examined by medicine for her other medical diagnoses including recent right foot ulcer. Patient will also need surgical clearance prior to surgical intervention today.
[2019-10-11] MEDS: SODIUM CHLORIDE 0.9% 1,000 ML IV SCH ×2 (11:58→19:43)
[2019-10-11 11:59] LABS: Glucose,Whole Blood 150 mg/dL (75-99)
[2019-10-11] MEDS: HYDROmorphone 1 MG/ML 1 ML SYRINGE IVP PRN ×2 (12:00→15:57)
--- NOTE | 2019-10-11 15:39 | P.PN ---
Subjective Progress Note Date: 10/11/19 This is a 74-year-old female admitted with intractable lumbar spine, vertebral fracture and multiple other medical issues. Lumbar spine/pelvis x-rays reporting L5 compression fracture secondary to fall, chronic L3 compression fracture. Evaluated by orthopedic surgery and patient is scheduled for kyphopla sty on Thursday. Coumadin on hold. Complains of bilateral lower back pain that radiates down right leg. His chest pain, palpitations or increased shortness of breath. Patient reports she uses 2 L at night at home.Blood sugars better controlled. Afebrile. 10/11/2019 no overnight events. Scheduled for kyphoplasty this afternoon with orthopedic surgery. Afebrile, normal WBC. Vital signs stable, maintaining O2 sats in the 90s on room air. Pain unchanged. Denies chest pain, palpitations or increased shortness of breath. Denies lightheadedness, dizziness or focal deficits. INR 1.2. Objective - Vital Signs Vital signs: Vital Signs Temp 98.2 F 10/10/19 18:56 Pulse 72 10/10/19 18:56 Resp 18 10/10/19 18:56 BP 129/81 10/10/19 18:56 Pulse Ox 94 L 10/10/19 18:56 Intake & Output 10/10/19 10/11/19 10/11/19 18:59 06:59 18:59 Intake Total 960 120 Balance 960 120 Intake: Oral 960 120 Other: Voiding Method Toilet # Voids 3 1 - Exam PHYSICAL EXAM: VITAL SIGNS: As above GENERAL: Sitting up in bed, no acute distress HEENT: Conjunctivae normal. eyes normal. Oral mucosa dry NECK: No JVD. No thyroid enlargement. No LNs CARDIOVASCULAR: S1, S2 regular. No murmur, rub or gallop RESPIRATION: Breath sounds diminished in the bases. No rhonchi or crackles. ABDOMEN: Soft, nontender . No guarding. no masses palpable. Positive Bowel sounds. Extremities: Trace edema right lower leg, right heel dressing clean dry and intact-prior blister. Skin dry. PSYCHIATRY: Alert and oriented X3, mood and affect normal. NERVOUS SYSTEM: Cranial N 2-12 grossly normal. Moves all 4 limbs. Diffuse weakness No focal deficits. Skin: no rash - Labs CBC & Chem 7: 10/11/19 07:43 10/11/19 07:43 Labs: Abnormal Lab Results - Last 24 Hours (Table) 10/10/19 10/10/19 10/10/19 Range/Units 12:18 16:49 19:33 Hgb (11.4-16.0) gm/dL PT (9.0-12.0) sec INR (<1.2) POC Glucose (mg/dL) 201 H 216 H 173 H (75-99) mg/dL 10/11/19 10/11/19 10/11/19 Range/Units 06:51 07:43 07:43 Hgb 11.1 L (11.4-16.0) gm/dL PT 12.8 H (9.0-12.0) sec INR 1.2 H (<1.2) POC Glucose (mg/dL) 198 H (75-99) mg/dL Assessment and Plan Assessment: Intractable pain of the lumbar spine, L5 compression fracture secondary to fall, chronic L3 compression fracture Hypertension Diabetes mellitus CAD Neuropathy Anxiety Chronic hypoxic respiratory failure, wears 2 L nasal cannula O2 at night. Plan: Continue on current medication regime ,monitoring and symptomatic treatment. Kyphoplasty scheduled for this afternoon. Pain management. Coumadin on hold. PT/OT. Subacute rehab at discharge, possibly. Further recommendations to follow. The impression and plan of care has been dictated as directed. : I performed a history and examination of this patient, discussed the same with the dictator. I agree with the dictator's note ,documented as a scribe. Any additional findings or plans will be noted.
[2019-10-11] MEDS ORDERED: LIDOCAINE 2%-EPI 1:100,000 20 ML VIAL SQ ONE ×2 (16:08→17:28)
[2019-10-11] MEDS ORDERED: IOHEXOL 180 MG/ML 1 ML ML MISCELLANE ONE ×2 (16:08→17:41)
[2019-10-11] MEDS ORDERED: BUPIVACAINE (PF) 0.25% 30 ML VIAL SQ ONE ×2 (16:09→17:28)
[2019-10-11 16:12] LABS: Glucose,Whole Blood 155 mg/dL (75-99)
[2019-10-11] MEDS: IV FLUID CONTINUATION 1,000 ML IV ONE ×2 (16:18→19:43)
[2019-10-11] MEDS ORDERED: MIDAZOLAM 2 MG/2 ML VIAL ONE (16:57)
[2019-10-11] MEDS ORDERED: LIDOCAINE 1% INJ 10MG/ML (20 ML MDV) ONE (16:57)
[2019-10-11] MEDS ORDERED: SUCCINYLCHOLINE CHLORIDE 100 MG/5 ML SYR IV ONE (16:57)
[2019-10-11] MEDS ORDERED: fentaNYL (PF) 50 MCG/ML 2 ML AMP ONE (16:57)
[2019-10-11] MEDS ORDERED: PROPOFOL 10 MG/ML 20 ML VIAL IV ONE (16:57)
[2019-10-11] MEDS ORDERED: IV FLUID CONTINUATION 1,000 ML IV ONE (17:02)
[2019-10-11] MEDS ORDERED: SODIUM CHLORIDE 0.9% 100 ML with ceFAZolin 2,000 MG IV ONE ×2 (17:19)
[2019-10-11] MEDS ORDERED: LACTATED RINGERS 1,000 ML IV ONE (17:44)
[2019-10-11] MEDS ORDERED: HYDROmorphone 0.5 MG/0.5 ML SYRINGE IVP PRN (17:59)
[2019-10-11] MEDS ORDERED: BENZOCAINE/MENTHOL LOZENG 1 EACH LOZENGE MUCOUS MEM PRN (17:59)
[2019-10-11] MEDS ORDERED: MAGNESIUM HYDROXIDE 2,400 MG/10 ML CUP PO PRN (17:59)
[2019-10-11] MEDS ORDERED: ONDANSETRON 4 MG/2 ML VIAL IVP PRN (17:59)
[2019-10-11] MEDS ORDERED: WARFARIN 0.5 MG TAB PO ONE (18:00)
[2019-10-11 18:06] LABS: Glucose,Whole Blood 141 mg/dL (75-99)
--- NOTE | 2019-10-11 18:07 | P.OP ---
Date of Procedure: 10/11/19 Preoperative Diagnosis: L5 acute traumatic compression fracture due to a fall with osteoporosis Intractable low back pain due to compression fracture without relief despite conservative treatment Postoperative Diagnosis: Same Anesthesia: GETA Pathology: other (L5 vertebral body biopsy sent to pathology) Condition: stable Disposition: PACU Description of Procedure: BRIEF OPERATIVE NOTE Preoperative Diagnosis: L5 acute traumatic vertebral compression fracture due to a fall with osteoporosis Intractable low back pain due to compression fracture without relief despite conservative treatment Postoperative Diagnosis: Same Procedure: Kyphoplasty of L5 Vertebral body biopsy of L5 Use of biplanar fluoroscopic guidance Surgeon: Dr. Esteban Inventory Coordinator: None Anesthesia: General anesthesia per Dr. Morley Estimated blood loss: Less than 10 mL Specimen: Vertebral body biopsy of L5 sent to pathology in formalin Complications: None apparent Components implanted: Bone cement approximately 7-1/2 mL Disposition: To recovery room in good stable condition. OPERATIVE INDICATIONS The patient has been having issues in their back ever since sustaining an injury. She had fallen just over a week ago and was found have a new acute L5 vertebral compression fracture due to her fall. She is having significant pain and attempted conservative treatment with bracing using an LSO. She initially felt some relief but when traversed would try to ambulate was having severe symptoms and was having worsening of her pain despite using the brace and conservative management. We discussed various treatment options with her as well as possibly surgical intervention with vertebral kyphoplasty at L5. The patient has been through conservative treatment. They attempted conservative care with bracing however they're not having any benefit despite brace use. They continue to have significant pain and debility due to their fracture. We discussed various treatment options including surgery, and the patient wishes to proceed with surgery We discussed the risk, patient's alternatives and benefits of surgery including but not limited to, risk of bleeding risk of infection, risk of need for further surgery, risk of decreased, loss of motion, loss of function, cement extravasation, nerve damage, paralysis, heart attack, blindness and . OPERATIVE SUMMARY After discussing all the risks, patient alternatives and benefits at length, the patient elected to proceed with surgical intervention, signed informed consent, and presented for their procedure. The patient was seen and examined in the preoperative holding area and the surgical site was marked. The patient was given antibiotics and brought to the operating room. The patient has some advance directives to be a full code without mechanical ventilation. This was suspended during the time in the operating room and then restarted postoperatively in recovery after she was extubated. The patient was sedated and intubated by anesthesia in standard fashion. The patient was positioned on to the operating room table in a prone position on the appropriate well-padded and well molded bilateral chest rolls. We were careful to pad any bony prominences and pressure points. We were careful to maintain the patient's cervical spine and good neutral alignment and position throughout. We used 2 C-arm machines to establish biplanar fluoroscopic guidance in AP and lateral positions. We were able to localize the fractures appropriately. The patient was prepped and draped in a normal standard fashion. An appropriate timeout and keystone protocol performed. We were able to proceed with the surgery. The local wound area was infiltrated with local anesthetic at L5 on the left. An incision was made over the lateral aspect of the pedicle over the appropriate levels with a small 2 mm stab incision. Intraoperative fluoroscopy was taken which showed a marker at the appropriate level of L5. With the appropriate level positively confirmed, I was able to position a sharp trocar over the lateral aspect of the pedicle. As able to advance the trocar into the pedicle and into the posterior aspect of vertebral body being careful to avoid penetration cephalad caudad or medially. The trocar was placed appropriately into the posterior aspect of vertebral body at the appropriate levels of L5. This was confirmed with C-arm guidance. With the trocar intact I was then able to take a bone biopsy with a biopsy punch or a bony drill. The biopsy specimen was passed off to be sent to pathology in formalin. I was then able to place the kyphoplasty balloon within the vertebral body. The position was checked on C-arm. I was able to inflate the balloon under low pressure and visualization with C-arm. The balloon was well enclosed within the vertebral body. The cement was prepared. With the cement at appropriate working condition the balloons were deflated and removed. I was able to place bony cement with trocar with the cement delivery device under low pressure to proximally 7 and half cc within the vertebral body of L5. It had good fill within the vertebral body. There is no evidence of any extravasation of the cement posteriorly toward the canal. The cement was well contained at the appropriate levels. The cement was allowed to cure appropriately. The trochars removed and final images were taken on C-arm. This showed the cement at the appropriate levels of L5. We were able to proceed with closure. The wound was cleaned and dried and dressed with the appropriate dressing. The drapes were broken down. The patient was gently rolled back onto their hospital bed being careful to maintain their cervical spine and good neutral alignment and position. They were woken up by anesthesia, extubated, and brought to the recovery room in good stable condition. The patient will be admitted to the hospital for observation and for appropriate postoperative care, medical management and monitoring. We will continue to follow them closely about the postoperative course.
[2019-10-11] MEDS ORDERED: HYDROmorphone 0.5 MG/0.5 ML SYRINGE IVP ONE ×3 (18:11→18:27)
[2019-10-11] MEDS ORDERED: hydrALAZINE HCL 20 MG/ML 1 ML VIAL IVP ONE (18:40)
[2019-10-11 20:20] LABS: Glucose,Whole Blood 172 mg/dL (75-99)
[2019-10-11] MEDS: ALPRAZolam 0.5 MG TAB PO PRN (20:38)
--- NOTE | 2019-10-11 22:27 | FL ---
EXAMINATION TYPE: FL guidance operating room, XR lumbar spine 1V DATE OF EXAM: 10/11/2019 CLINICAL HISTORY: Low back pain. TECHNIQUE: Fluoroscopy. Intraoperative single view lumbar spine. COMPARISON: None. FINDINGS: Fluoroscopic guidance was provided during kyphoplasty procedure performed by Dr. Esteban. A total of 48 seconds of fluoroscopic time was utilized during the procedure and 4 spot intraoperative images are acquired. Images acquired show kyphoplasty performed with cement injection at L5 level. IMPRESSION: As Above.
[2019-10-12] MEDS: HYDROcodone/APAP 5-325MG 1 EACH TAB PO PRN ×5 (00:53→21:19)
[2019-10-12] MEDS: LEVOTHYROXINE 75 MCG TAB PO SCH (05:10)
[2019-10-12] MEDS: SODIUM CHLORIDE 0.9% 1,000 ML IV SCH ×2 (05:10→07:37)
[2019-10-12 07:03] LABS: Glucose,Whole Blood 171 mg/dL (75-99)
[2019-10-12] MEDS: INSULIN ASPART (NovoLOG) 100 UNIT/ML VIAL SQ SCH ×4 (07:25→21:19)
[2019-10-12] MEDS: METOPROLOL SUCCINATE (ER) 100 MG TAB.ER.24H PO SCH (07:26)
[2019-10-12] MEDS: metFORMIN 500 MG TAB PO SCH ×2 (07:26→17:09)
[2019-10-12] MEDS: TRIAMTERENE-HCTZ 37.5-25MG 1 EACH CAP PO SCH (07:26)
[2019-10-12] MEDS: PANTOPRAZOLE 40 MG TABLET PO SCH (07:26)
[2019-10-12] MEDS: GABAPENTIN 400 MG CAP PO SCH ×4 (07:31→21:19)
[2019-10-12 07:36] LABS: Basophils % (A) 1 %; Eosinophils # (A) 0.2 k/uL (0-0.7); Eosinophils % (A) 3 %; HCT 31.8 % (34.0-46.0); HGB 10.2 gm/dL (11.4-16.0); Lymphocytes % (A) 23 %; MCH 28.6 pg (25.0-35.0); MCV 89.3 fL (80.0-100.0); Mean Platelet Volume 7.3; Monocytes # (A) 0.3 k/uL (0-1.0); Monocytes % (A) 7 %; Neutrophils # (A) 2.9 k/uL (1.3-7.7); Neutrophils % (A) 65 %; Platelet Count 217 k/uL (150-450); RBC 3.56 m/uL (3.80-5.40); RDW 14.1 % (11.5-15.5); WBC 4.4 k/uL (3.8-10.6)
[2019-10-12 07:50] LABS: African American GFR (CKD) >90 (>60 ml/min/1.73 sqM); Anion Gap 3 mmol/L; Blood Urea Nitrogen 10 mg/dL (7-17); Calcium 7.9 mg/dL (8.4-10.2); Carbon Dioxide 28 mmol/L (22-30); Chloride 107 mmol/L (98-107); Glucose 167 mg/dL (74-99); Non-African American GFR(CKD) >90 (>60 ml/min/1.73 sqM); Potassium 4.1 mmol/L (3.5-5.1); Sodium 138 mmol/L (137-145)
[2019-10-12 09:05] LABS: INR 1.2 (<1.2); Prothrombin Time 12.2 sec (9.0-12.0)
[2019-10-12 11:48] LABS: Glucose,Whole Blood 213 mg/dL (75-99)
[2019-10-12] MEDS ORDERED: NON FORMULARY DRUG (Dulaglutide [Trulicity] 1.5 MG) SQ SCH (14:18)
--- NOTE | 2019-10-12 14:47 | P.DS ---
Providers Date of admission: 10/07/19 11:15 Expected date of discharge: 10/12/19 Attending physician: Eloy Griffin Consults: 10/07/19 14:24 Consult Physician Routine Consulting Provider: Malik Esteban Consult Reason/Comments: vertebroplasty Do you want consulting provider notified?: Yes Primary care physician: [facility]oy [facility] Course: Final Diagnoses: Intractable pain of the lumbar spine, L5 compression fracture secondary to fall, chronic L3 compression fracture, failed conservative treatment, status post kyphoplasty of L5 Hypertension Diabetes mellitus CAD Neuropathy Anxiety Chronic hypoxic respiratory failure, wears 2 L nasal cannula O2 at night. Hospital course:This is a 74-year-old female admitted with intractable lumbar spine, vertebral fracture and multiple other medical issues. Lumbar spine/pelvis x-rays reporting L5 compression fracture secondary to fall, chronic L3 compression fracture. Evaluated by orthopedic surgery and patient is schedul ed for kyphoplasty on Thursday. Coumadin on hold. Complains of bilateral lower back pain that radiates down right leg. His chest pain, palpitations or increased shortness of breath. Patient reports she uses 2 L at night at home.Blood sugars better controlled. Afebrile. 10/11/2019 no overnight events. Scheduled for kyphoplasty this afternoon with orthopedic surgery. Afebrile, normal WBC. Vital signs stable, maintaining O2 sats in the 90s on room air. Pain unchanged. Denies chest pain, palpitations or increased shortness of breath. Denies lightheadedness, dizziness or focal deficits. INR 1.2. Status post kyphoplasty, tolerated procedure well. Cleared by orthopedic surgery for discharge. Patient is being discharged home in a stable condition with guarded prognosis.Hospital bed to be arranged by case management for discharge related to pain control. Head of bed must be elevated 30 degrees. EXAM: GENERAL: Alert and oriented 3, no acute distress CARDIOVASCULAR: S1, S2 regular. No murmur, rub or gallop RESPIRATION: Breath sounds diminished in the bases. No rhonchi or crackles. ABDOMEN: Soft, nontender . No guarding. no masses palpable. Positive Bowel sounds. NERVOUS SYSTEM: No focal deficits. The impression and plan of care has been dictated as directed. : I performed a history and examination of this patient, discussed the same with the dictator. I agree with the dictator's note ,documented as a scribe. Any additional findings or plans will be noted. Patient Condition at Discharge: Stable Plan - Discharge Summary Discharge Rx Participant: No New Discharge Prescriptions: New Sennosides-Docusate Sodium [Senokot-S] 1 each PO BID PRN #0 tab PRN Reason: Constipation Continue oxyCODONE-APAP 10-325MG [Percocet 10-325 mg] 1 tab PO QID PRN PRN Reason: Pain ALPRAZolam [Xanax] 0.5 mg PO BID PRN PRN Reason: Anxiety Gabapentin [Neurontin] 800 mg PO QID metFORMIN HCL [Glucophage] 1,000 mg PO BID Triamterene/Hydrochlorothiazid [Dyazide 37.5-25 Capsule] 1 cap PO DAILY Warfarin [Coumadin] 2.5 mg PO HS Dulaglutide [Trulicity] 1.5 mg SQ WE Metoprolol Succinate (ER) [Toprol XL] 100 mg PO DAILY Levothyroxine Sodium 150 mcg PO DAILY Insulin Degludec [Tresiba] See Protocol SQ DAILY Omeprazole 40 mg PO DAILY Discharge Medication List oxyCODONE-APAP 10-325MG [Percocet 10-325 mg] 1 tab PO QID PRN 10/25/15 [History] ALPRAZolam [Xanax] 0.5 mg PO BID PRN 08/27/17 [History] Gabapentin [Neurontin] 800 mg PO QID 12/10/17 [History] metFORMIN HCL [Glucophage] 1,000 mg PO BID 12/10/17 [History] Dulaglutide [Trulicity] 1.5 mg SQ WE 10/01/19 [History] Insulin Degludec [Tresiba] See Protocol SQ DAILY 10/01/19 [History] Levothyroxine Sodium 150 mcg PO DAILY 10/01/19 [History] Metoprolol Succinate (ER) [Toprol XL] 100 mg PO DAILY 10/01/19 [History] Omeprazole 40 mg PO DAILY 10/01/19 [History] Triamterene/Hydrochlorothiazid [Dyazide 37.5-25 Capsule] 1 cap PO DAILY 10/01/19 [History] Warfarin [Coumadin] 2.5 mg PO HS 10/01/19 [History] Sennosides-Docusate Sodium [Senokot-S] 1 each PO BID PRN #0 tab 10/12/19 [Rx] Follow up Appointment(s)/Referral(s): [facility],Care [NON-STAFF] - [facility],Equipment [NON-STAFF] - As Needed Skip Rehman PAC [PHYSICIAN FABRICATION SUPERVISOR] - 10/28/19 1:00 pm ( ) Eloy Griffin MD [Primary Care Provider] - 10/17/19 11:15 am Ambulatory/Diagnostic Orders: Prothrombin Time INR [LAB.AMB] Time Frame: 10/14/19, Location: None Selected Patient Instructions/Handouts: Kyphoplasty (DC) Activity/Diet/Wound Care/Special Instructions: 1. Patient may shower with Tegaderm dressing intact. 2. Patient may remove Tegaderm dressing in 3 days and shower without a dressing at that time. 3. Patient should refrain from driving until at least after their first follow- up appointment in the office. 5. Patient should avoid excessive bending, twisting, and lifting; no lifting greater than 10 pounds 6. Take medications as prescribed 7. Do not soak in tub Discharge Disposition: HOME SELF-CARE
--- NOTE | 2019-10-12 15:00 | P.PN ---
Progress Note - Text Progress Note Date: 10/12/19 Orthopedic spine: History of present illness: Patient is a very pleasant 74-year-old female who is seen in the bedside for further evaluation for lumbar compression fracture deformities. She was seen and examined that a previous admission on 10/03/2019. She was discharged on 10/04/2019. Her pain has not been adequately controlled in the outpatient setting. She presented back to [facility] for further evaluation. Patient sustained a fall approximately 10 days ago when she was going to the restroom and fell on her buttocks on the top floor. She has had increased back pain since that time. After symptoms were not improving, she presented to [facility] for further evaluation on 10/01/2019. X-ray and CT imaging were taken at that time which showed evidence of compression fracture deformities at L3 and L5. Reviewing of imaging shows decompression fracture deformity at L5 appears cute while the compression fracture at L3 appears chronic. After failing to have any significant improvement of her symptoms, she underwent an L5 kyphoplasty with biopsy performed yesterday, 10/11/2019. Since that time she feels her back pain is better controlled. She has been working with therapy to increase mobilization. She does continue to wear her LSO brace. She's currently ready for discharge home today. She is planning to discharge home today once her hospital bed has been delivered and set up today. She denies any specific lower extremity radiculopathy bilaterally. She has been eating and voiding without difficulty. Patient does have a significant medical history including orthopedic treatment. 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 Mckeon. She states approximately 2 years ago she sustained a fracture to her right hip and femur requiring surgical fixation performed by Dr. Aguilar. She states following the total knee arthroplasty, she was able to ambulat e with assistance of a cane. Following her femur and hip fracture she's been using a walker to aid in ambulation. She states probably 4 years ago she also began to experience significant bilateral weakness in the feet. She is unable to perform dorsiflexion or extensor hallucis longus bilaterally. Patient states she was previously fitted with AFO braces, which she felt helped, but states she was told these brace were not be appropriate braces for her. She was then fitted with a lace up braces and bilateral boots without any benefit. She continues to have difficulty in ambulation and uses a walker. During her previous admission prescriptions were written and provided to case management for AFO braces for the bilateral lower extremities. These braces have not yet been delivered and fitted. She does admit to significant neuropathy bilateral lower extremities. She has a medical history which includes diabetes mellitus, CVA/TIA. Coumadin has been restarted. Her right heel is currently wrapped with dressing due to ulcer. Physical exam: Patient is awake, alert, and oriented 3 Vital signs stable Good chest excursion with deep inspiration and expiration Abdomen soft nontender Examination of lumbar spine reveals skin is intact with no abrasions, lacerations, or bruises; no erythema, purulence or signs of infection Dressing over the L5 kyphoplasty site is clean, dry, and intact; no evidence of erythema, purulence, bruising, or obvious signs of infection at the surgical site No significant pain with palpation along the midline of the lower lumbar spine Dorsiflexion positive sustained bilaterally Patient is unable to perform any active range of motion with plantarflexion and extensor hallucis longus strength is 0/5 Patient is able to slowly lift legs off the bed independently Patient is able to sense palpation over the bilateral calves Decreased sensation with palpation over the feet bilaterally No lower extremity hyperreflexia bilaterally Straight leg test negative bilateral lower extremities Evidence of a well-healed incision over the right knee No signs or symptoms of DVT; no calf pain No pain with internal and external rotation of the hips bilaterally Dressing over the right heel due to foot ulcer Pertinent studies: X-rays lumbosacral spine taken on 10/08/2019: Stable compression fracture deformities at L3 and L5 without progressive height loss as compared to recent imaging taken on 10/01/2019; L4-5 slight spondylolisthesis and facet arthropathy; L2-3 degenerative disc disease and anterior osteophytic spurring X-ray the pelvis taken on 10/08/2019: Redemonstration of dynamic right hip screw fixation with appearance of chronically impacted femoral neck deformity with no interval displaced fracture X-rays lumbosacral spine taken on 10/01/2019: L3 slight wedge compression fracture deformity of indeterminate age with approximately 10% height loss; Acute L5 compression fracture deformity with approximately 15% height loss which was not evident on CT imaging taken on 09/25/2019; L2-3 degenerative disc disease and anterior osteophytic spurring CT of the lumbar spine taken on 10/01/2019: L3 slight wedge compression fracture deformity of indeterminate age with approximately 10% height loss; Acute L5 co mpression fracture deformity with approximately 15% height loss; L2-3 degenerative disc disease and anterior osteophytic spurring; no focal bone destruction; mild spondylitic change CT of the abdomen and pelvis taken on 09/25/2019: Evidence of L3 wedge compression fracture deformity with approximately 10% height loss; no evidence of L5 compression fracture deformity Assessment: Acute low back pain status post fall Acute L5 compression fracture deformity Chronic L3 compression fracture deformity Bilateral lower extremity weakness Bilateral footdrop Right foot ulcer Constipation History of right total knee arthroplasty History of right femur and right hip surgical fixation due to fracture History of diabetes mellitus History of CVA/TIA Bilateral neuropathy Plan: 1. Patient underwent a L5 kyphoplasty and biopsy yesterday, 10/11/2019. Since that time she's had better control of her low back pain. She continues wore an LSO brace. She's ready for discharge home today. Patient will be cleared for discharge from an orthopedic spine standpoint. We did discuss she has not required to wear the LSO brace but may wear this brace for comfort support as needed. Following discharge, we will plan the patient follow-up with Skip Rehman PA-C or Dr. Ry Esteban at [facility] in [facility] 2-3 weeks for further evaluation. Patient also has history of bilateral footdrop and has significant weakness with dorsiflexion and extensor hallucis longus. Her prescription since have previ ously been written for bilateral AFO braces and provided to case management. His braces may be obtained through [employer] and [employer]. It was discussed again with the patient that it may take time to obtain these AFO braces as moldings may need to be made first. 2. Patient will continue be seen and examined by medicine for her other medical diagnoses including recent right foot ulcer.
[2019-10-12 16:41] LABS: Glucose,Whole Blood 157 mg/dL (75-99)
[2019-10-12] MEDS ORDERED: WARFARIN 2 MG TAB PO ONE (18:00)
[2019-10-12 21:05] LABS: Glucose,Whole Blood 234 mg/dL (75-99)
[2019-10-13] MEDS: HYDROcodone/APAP 5-325MG 1 EACH TAB PO PRN ×5 (01:47→22:59)
[2019-10-13] MEDS: LEVOTHYROXINE 75 MCG TAB PO SCH (05:50)
[2019-10-13 06:47] LABS: Glucose,Whole Blood 188 mg/dL (75-99)
[2019-10-13] MEDS: INSULIN ASPART (NovoLOG) 100 UNIT/ML VIAL SQ SCH ×4 (07:29→20:57)
[2019-10-13] MEDS: TRIAMTERENE-HCTZ 37.5-25MG 1 EACH CAP PO SCH (07:30)
[2019-10-13] MEDS: metFORMIN 500 MG TAB PO SCH ×2 (07:30→17:07)
[2019-10-13] MEDS: METOPROLOL SUCCINATE (ER) 100 MG TAB.ER.24H PO SCH (07:30)
[2019-10-13] MEDS: PANTOPRAZOLE 40 MG TABLET PO SCH (07:30)
[2019-10-13] MEDS: GABAPENTIN 400 MG CAP PO SCH ×4 (07:30→20:57)
[2019-10-13 08:19] LABS: INR 1.1 (<1.2); Prothrombin Time 11.5 sec (9.0-12.0)
[2019-10-13 11:40] LABS: Glucose,Whole Blood 246 mg/dL (75-99)
[2019-10-13 16:43] LABS: Glucose,Whole Blood 168 mg/dL (75-99)
[2019-10-13] MEDS ORDERED: WARFARIN 2 MG TAB PO ONE (18:00)
[2019-10-13 20:30] LABS: Glucose,Whole Blood 209 mg/dL (75-99)
[2019-10-13] MEDS: ALPRAZolam 0.5 MG TAB PO PRN (20:58)
--- NOTE | 2019-10-14 02:31 | PN ---
PROGRESS NOTE A 74-year-old white female status post which kyphoplasty for L5 vertebral fracture, generally gait disturbance, insulin-dependent diabetes mellitus, hypertension. Vital signs stable. Afebrile. Cardiovascular S1, S2. Lungs clear. GI soft. Musculoskeletal: Range of motion is limited on the lower extremities. Less back pain. ASSESSMENT: 1. Acute L5 vertebral fracture. 2. Insulin-dependent diabetes mellitus. 3. Hypertension. 4. Generalized debility. Continue PT, OT, rehab placement on Thursday to a care home. MMODL / IJN: [id number] /
[2019-10-14] MEDS: LEVOTHYROXINE 75 MCG TAB PO SCH (04:37)
[2019-10-14] MEDS: HYDROcodone/APAP 5-325MG 1 EACH TAB PO PRN ×3 (04:37→12:17)
[2019-10-14 07:03] LABS: Glucose,Whole Blood 163 mg/dL (75-99)
[2019-10-14] MEDS: INSULIN ASPART (NovoLOG) 100 UNIT/ML VIAL SQ SCH ×2 (07:14→12:17)
[2019-10-14] MEDS: metFORMIN 500 MG TAB PO SCH (07:14)
[2019-10-14] MEDS: PANTOPRAZOLE 40 MG TABLET PO SCH (07:14)
[2019-10-14] MEDS: GABAPENTIN 400 MG CAP PO SCH ×2 (08:11→12:16)
[2019-10-14] MEDS: TRIAMTERENE-HCTZ 37.5-25MG 1 EACH CAP PO SCH (08:11)
[2019-10-14] MEDS: METOPROLOL SUCCINATE (ER) 100 MG TAB.ER.24H PO SCH (08:12)
[2019-10-14 08:21] VITALS: TEMP 97.8
[2019-10-14 08:26] LABS: INR 1.2 (<1.2); Prothrombin Time 12.2 sec (9.0-12.0)
[2019-10-14 11:44] LABS: Glucose,Whole Blood 184 mg/dL (75-99)
[2019-10-14 14:47] VITALS: BP 106/71; PULSE 75; RESP 18
[2019-10-14 16:53] LABS: Hemoglobin A1C 9.5 % (4.0-6.0)
[2019-10-14] MEDS ORDERED: WARFARIN 2 MG TAB PO ONE (18:00)
== END 2019-10-14 15:05 | disposition home health service (06) | DRG 477 ==
LOC: 4SSUR 11:15
PROVIDERS: ADMIT Family Medicine; ATTEND Family Medicine
PROC: 0QB03ZX Excision of Lumbar Vertebra, Percutaneous Approach, Diagnostic (ICD-10-PCS; principal; 2019-10-07)
PROC: 0QS03ZZ Reposition Lumbar Vertebra, Percutaneous Approach (ICD-10-PCS; 2019-10-07)
PROC: 0QU03JZ Supplement Lumbar Vertebra with Synthetic Substitute, Percutaneous Approach (ICD-10-PCS; 2019-10-07)
DX: S32.050A Wedge compression fracture of fifth lumbar vertebra, initial encounter for closed fracture (principal); D66 Hereditary factor VIII deficiency; J96.11 Chronic respiratory failure with hypoxia; L97.419 Non-pressure chronic ulcer of right heel and midfoot with unspecified severity; E11.42 Type 2 diabetes mellitus with diabetic polyneuropathy; E11.51 Type 2 diabetes mellitus with diabetic peripheral angiopathy without gangrene; E11.621 Type 2 diabetes mellitus with foot ulcer; M43.16 Spondylolisthesis, lumbar region; M51.36 Other intervertebral disc degeneration, lumbar region; S32.030S Wedge compression fracture of third lumbar vertebra, sequela; M81.0 Age-related osteoporosis without current pathological fracture; R29.6 Repeated falls; M21.371 Foot drop, right foot; M21.372 Foot drop, left foot; F41.9 Anxiety disorder, unspecified; K59.00 Constipation, unspecified; I10 Essential (primary) hypertension; I25.10 Atherosclerotic heart disease of native coronary artery without angina pectoris; E89.0 Postprocedural hypothyroidism; M79.7 Fibromyalgia; E78.5 Hyperlipidemia, unspecified; M19.90 Unspecified osteoarthritis, unspecified site; K21.9 Gastro-esophageal reflux disease without esophagitis; G89.29 Other chronic pain; R26.9 Unspecified abnormalities of gait and mobility; R32 Unspecified urinary incontinence; Z79.01 Long term (current) use of anticoagulants; Z79.890 Hormone replacement therapy; Z79.4 Long term (current) use of insulin; Z79.899 Other long term (current) drug therapy; Z87.81 Personal history of (healed) traumatic fracture; Z86.73 Personal history of transient ischemic attack (TIA), and cerebral infarction without residual deficits; Z90.710 Acquired absence of both cervix and uterus; Z98.890 Other specified postprocedural states; Z90.49 Acquired absence of other specified parts of digestive tract; Z96.651 Presence of right artificial knee joint; Z86.19 Personal history of other infectious and parasitic diseases; Z85.850 Personal history of malignant neoplasm of thyroid; Z86.14 Personal history of Methicillin resistant Staphylococcus aureus infection; Z87.442 Personal history of urinary calculi; Z98.42 Cataract extraction status, left eye; Z98.41 Cataract extraction status, right eye; Z88.8 Allergy status to other drugs, medicaments and biological substances; Z91.048 Other nonmedicinal substance allergy status; W18.30XA Fall on same level, unspecified, initial encounter; Z84.1 Family history of disorders of kidney and ureter; Z81.8 Family history of other mental and behavioral disorders; Z82.61 Family history of arthritis
CPT/HCPCS: 72020; 72100; 72170; 80048; 80053; 83036; 85025; 85610; 88307; 88311

== ENCOUNTER 2019-11-25 11:11 | Observation (INO) | payer MEDICARE ==
[2019-11-28 08:14] VITALS: BP 116/71; PULSE 75; RESP 12; TEMP 97.9
== END 2019-11-28 15:42 | disposition home health service (06) ==
LOC: 4SSUR 11:42 → INTOOBSV 11:42 → UNDODISIN 11-28 15:42
PROVIDERS: ADMIT Family Medicine; ATTEND Family Medicine
DX: L03.116 Cellulitis of left lower limb (principal); L89.623 Pressure ulcer of left heel, stage 3; J96.11 Chronic respiratory failure with hypoxia; K21.9 Gastro-esophageal reflux disease without esophagitis; M79.7 Fibromyalgia; E03.9 Hypothyroidism, unspecified; E11.42 Type 2 diabetes mellitus with diabetic polyneuropathy; G62.9 Polyneuropathy, unspecified; E78.5 Hyperlipidemia, unspecified; F41.9 Anxiety disorder, unspecified; I10 Essential (primary) hypertension; I25.10 Atherosclerotic heart disease of native coronary artery without angina pectoris; R29.6 Repeated falls; Z86.73 Personal history of transient ischemic attack (TIA), and cerebral infarction without residual deficits; Z90.710 Acquired absence of both cervix and uterus; Z90.49 Acquired absence of other specified parts of digestive tract; Z88.8 Allergy status to other drugs, medicaments and biological substances; Z82.61 Family history of arthritis; Z82.0 Family history of epilepsy and other diseases of the nervous system; Z79.01 Long term (current) use of anticoagulants; Z79.890 Hormone replacement therapy; Z79.84 Long term (current) use of oral hypoglycemic drugs; Z79.899 Other long term (current) drug therapy; Z99.81 Dependence on supplemental oxygen
CPT/HCPCS: 96365; 96366 ×4; 96367; 80053; 85025; 85610 ×4; 81001; 87070; 87205; 87075; 78315; G0378 ×4; G0379; A9503; J2543; J0690 ×4

== ENCOUNTER 2020-07-04 11:41 | Observation (INO) | payer MEDICARE ==
[2020-07-04] MEDS ORDERED: PANTOPRAZOLE 40 MG TABLET PO PRN (14:53)
[2020-07-04] MEDS: oxyCODONE-APAP 10-325MG 1 EACH TAB PO PRN ×2 (15:40→21:34)
[2020-07-04] MEDS: SODIUM CHLORIDE 0.9% 1,000 ML IV SCH (15:41)
[2020-07-04 15:45] LABS: INR 2.1 (<1.2); Prothrombin Time 20.6 sec (9.0-12.0)
[2020-07-04 15:50] LABS: Basophils % (A) 0 %; Eosinophils # (A) 0.1 k/uL (0-0.7); Eosinophils % (A) 1 %; HCT 38.4 % (34.0-46.0); HGB 12.1 gm/dL (11.4-16.0); Lymphocytes # (A) 1.2 k/uL (1.0-4.8); Lymphocytes % (A) 19 %; MCH 28.2 pg (25.0-35.0); MCHC 31.5 g/dL (31.0-37.0); MCV 89.7 fL (80.0-100.0); Mean Platelet Volume 8.6; Monocytes # (A) 0.3 k/uL (0-1.0); Monocytes % (A) 5 %; Neutrophils # (A) 4.5 k/uL (1.3-7.7); Neutrophils % (A) 73 %; Platelet Count 168 k/uL (150-450); RBC 4.28 m/uL (3.80-5.40); RDW 12.9 % (11.5-15.5); WBC 6.2 k/uL (3.8-10.6)
[2020-07-04 15:55] LABS: Albumin 3.1 g/dL (3.5-5.0)
[2020-07-04 16:16] LABS: Calcium 8.8 mg/dL (8.4-10.2); Magnesium 1.9 mg/dL (1.6-2.3); Potassium 4.5 mmol/L (3.5-5.1); Total Bilirubin 0.4 mg/dL (0.2-1.3)
[2020-07-04 16:41] LABS: Glucose,Whole Blood 177 mg/dL (75-99)
[2020-07-04] MEDS: GABAPENTIN 400 MG CAP PO SCH ×2 (17:02→21:33)
[2020-07-04] MEDS: metFORMIN 500 MG TAB PO SCH (17:02)
[2020-07-04 18:11] LABS: Appearance,Urine Clear (Clear); Bilirubin,Urine Negative (Negative); Blood,Urine Negative (Negative); Color,Urine Yellow; Glucose,Urine (UA) Trace (Negative); Hyaline Casts,Urine 17 /lpf (0-2); Ketones,Urine Negative (Negative); Leukocyte Esterase,Urine Small (Negative); Mucus,Urine Occasional /hpf; Nitrite,Urine Negative (Negative); Protein,Urine Trace (Negative); RBC,Urine 1 /hpf (0-5); Specific Gravity,Urine 1.026 (1.001-1.035); Squamous Epithelial Cell,Urine 6 /hpf (0-4); Urobilinogen,Urine <2.0 mg/dL (<2.0); WBC,Urine 5 /hpf (0-5)
--- NOTE | 2020-07-04 18:45 | CT ---
EXAMINATION TYPE: CT abdomen pelvis wo con DATE OF EXAM: 07/04/2020 COMPARISON: 09/23/2019 HISTORY: Abdominal pain CT DLP: 1101.4 mGycm Automated exposure control for dose reduction was used. Images were obtained from the diaphragm to the floor the pelvis with no contrast. The lung bases are clear. There is no pleural effusion. Heart size is fairly normal. There is some br onchial cartilage calcification. Stomach is intact. Liver shows no focal defect. There are clips from cholecystectomy. Spleen is intac t. There is no evidence of pancreatic mass. The bile ducts are not dilated. There is 8mm calcificatio n in the right upper quadrant in the region of the distal common bile duct into the duodenum. This co uld be a common duct stone. The intrahepatic bile ducts and the common bile duct however are not dila alonso. Common bile duct measures 8 mm. There is no adrenal mass. Kidneys have normal size. There is no hydronephrosis. There is no retroperi toneal adenopathy. Ureters are not dilated. Bladder is almost empty. There are phleboliths in the pel vis. There is no inguinal hernia. There is no mesenteric edema. There is no ascites or free air. Ther e is no bowel obstruction. There is right hip nailing fixing old intertrochanteric fracture right fem ur. Appendix is not seen. There is no sign of thickened appendix. There is linear density along the a nterior abdominal wall consistent with hernia surgery. There is multilevel mild spondylotic changes in the lumbar spine. There is 20% compression deformity of L5 vertebral body with vertebroplasty. The bony pelvis appears intact. Hip joints are anatomic. Th ere is mild hip joint space narrowing. IMPRESSION: Cholecystectomy. Possible distal common bile duct stone. No change compared to old exam. No significa nt dilation of the bile ducts seen. There is vertebroplasty compared to old exam. No evidence of colitis.
[2020-07-04] MEDS: SENNOSIDES-DOCUSATE SODIUM 1 EACH TAB PO SCH (21:33)
[2020-07-04] MEDS: ALPRAZolam 0.5 MG TAB PO SCH (21:33)
[2020-07-04] MEDS: WARFARIN 2.5 MG TAB PO SCH (21:33)
[2020-07-04 21:53] LABS: Glucose,Whole Blood 184 mg/dL (75-99)
[2020-07-05 02:04] LABS: Glucose,Whole Blood 134 mg/dL (75-99)
[2020-07-05] MEDS: oxyCODONE-APAP 10-325MG 1 EACH TAB PO PRN ×3 (03:13→14:41)
[2020-07-05] MEDS: SODIUM CHLORIDE 0.9% 1,000 ML IV SCH ×2 (03:14→14:43)
[2020-07-05] MEDS: LEVOTHYROXINE 75 MCG TAB PO SCH (05:47)
[2020-07-05 07:02] LABS: Glucose,Whole Blood 136 mg/dL (75-99)
[2020-07-05 07:39] LABS: INR 2.4 (<1.2)
[2020-07-05] MEDS: GABAPENTIN 400 MG CAP PO SCH ×4 (07:55→21:10)
[2020-07-05] MEDS: INSULIN DETEMIR (LEVEMIR) 100 UNIT/ML SYR SQ SCH (07:55)
[2020-07-05] MEDS: ESCITALOPRAM 10 MG TAB PO SCH (07:55)
[2020-07-05] MEDS: METOPROLOL SUCCINATE (ER) 50 MG TAB.ER.24H PO SCH (07:56)
[2020-07-05] MEDS: SENNOSIDES-DOCUSATE SODIUM 1 EACH TAB PO SCH ×2 (07:56→20:24)
[2020-07-05] MEDS: metFORMIN 500 MG TAB PO SCH ×2 (07:56→16:59)
[2020-07-05] MEDS: ALPRAZolam 0.5 MG TAB PO SCH ×2 (07:56→20:24)
[2020-07-05 11:51] LABS: Glucose,Whole Blood 155 mg/dL (75-99)
[2020-07-05 16:52] LABS: Glucose,Whole Blood 182 mg/dL (75-99)
[2020-07-05] MEDS ORDERED: MORPHINE SULFATE 2 MG/ML SYRINGE IVP PRN (17:20)
--- NOTE | 2020-07-05 18:43 | HP ---
HISTORY AND PHYSICAL This patient is a 75-year-old white female admitted with acute abdominal pain radiating to her back. Pain is 10/10, unable to eat or drink. She states sometimes she gets food stuck in her throat and is unable to swallow. She has never had pain in her belly like this before; diffuse, across her abdomen. CT scan of the abdomen shows a possible stone in her bile duct, even though her gallbladder has been removed. Awaiting further recommendations from Surgery and GI at this point. HOME MEDICINES: 1. Xanax 0.5 t.i.d. 2. Trulicity 1.5 subcutaneously on Wednesdays. 3. Lexapro 10 mg daily. 4. Neurontin 800 q.i.d. 5. Levemir 10 units daily. 6. Levothyroxine 150 mcg daily. 7. Metformin 1000 b.i.d. 8. Metoprolol 50 mg daily. 9. Percocet 10 q.4 p.r.n. 10.Protonix 40 mg daily. 11.Senokot daily. 12.Coumadin; dosing 2.5 daily. Condition stable. Prognosis guarded. Ambulate as tolerated. Fourteen-point review of systems otherwise is negative except for chronic heel ulcers which are healed at this point and chronic weakness, fatigue and frequent falls due to diabetes, neuropathy, heel ulcers, generalized weakness. PHYSICAL EXAMINATION: NEUROLOGIC: Alert and oriented x3. PSYCH: Fair mood and affect. ENDOCRINE: She looks like BMI is over 30. CARDIOVASCULAR: S1, S2. LUNGS: Decreased breath sounds x4. INTEGUMENT: Integument shows some healing ulcers on the heels. No open wounds at this time. GI: Tenderness, diffuse across the abdomen. Normal bowel sounds. Mild guarding. No rebound tenderness. EYES: Pupils equal, round, reactive to light and accommodation. ENT otherwise is normal. ASSESSMENT: Acute abdominal pain, unclear etiology; possible choledocholithiasis as a cause. Rule out pancreatitis. Wait for surgical GI consult due to dysphagia and difficulty swallowing. She will possibly need EGD. Continue home medicines in the meantime. Accu- Chek protocol. Continue on normal saline, fluids and wait for GI recommendations. MMODL / IJN: [id number] /
[2020-07-05] MEDS: WARFARIN 2.5 MG TAB PO SCH (20:24)
[2020-07-05 20:34] LABS: Glucose,Whole Blood 156 mg/dL (75-99)
[2020-07-06] MEDS: oxyCODONE-APAP 10-325MG 1 EACH TAB PO PRN ×4 (00:37→21:11)
[2020-07-06 02:36] LABS: Glucose,Whole Blood 170 mg/dL (75-99)
[2020-07-06] MEDS: LEVOTHYROXINE 75 MCG TAB PO SCH (05:39)
[2020-07-06 06:53] LABS: Glucose,Whole Blood 180 mg/dL (75-99)
[2020-07-06] MEDS: GABAPENTIN 400 MG CAP PO SCH ×4 (08:41→21:09)
[2020-07-06] MEDS: ALPRAZolam 0.5 MG TAB PO SCH ×2 (08:41→21:09)
[2020-07-06] MEDS: METOPROLOL SUCCINATE (ER) 50 MG TAB.ER.24H PO SCH (08:41)
[2020-07-06] MEDS: metFORMIN 500 MG TAB PO SCH ×2 (08:41→16:42)
[2020-07-06] MEDS: INSULIN DETEMIR (LEVEMIR) 100 UNIT/ML SYR SQ SCH (08:42)
[2020-07-06] MEDS: ESCITALOPRAM 10 MG TAB PO SCH (08:44)
[2020-07-06] MEDS: SENNOSIDES-DOCUSATE SODIUM 1 EACH TAB PO SCH ×2 (08:44→21:09)
[2020-07-06 09:39] LABS: INR 2.8 (<1.2); Prothrombin Time 27.7 sec (9.0-12.0)
[2020-07-06 09:58] LABS: Basophils % (A) 1 %; Eosinophils # (A) 0.1 k/uL (0-0.7); Eosinophils % (A) 2 %; HCT 39.2 % (34.0-46.0); HGB 12.3 gm/dL (11.4-16.0); Hypochromasia Slight; Lymphocytes # (A) 1.6 k/uL (1.0-4.8); Lymphocytes % (A) 34 %; MCH 28.5 pg (25.0-35.0); MCHC 31.2 g/dL (31.0-37.0); MCV 91.4 fL (80.0-100.0); Mean Platelet Volume 9.4; Monocytes # (A) 0.4 k/uL (0-1.0); Monocytes % (A) 8 %; Neutrophils # (A) 2.5 k/uL (1.3-7.7); Neutrophils % (A) 53 %; Platelet Count 156 k/uL (150-450); RBC 4.29 m/uL (3.80-5.40); RDW 12.8 % (11.5-15.5); WBC 4.7 k/uL (3.8-10.6)
[2020-07-06 10:04] LABS: ALT 14 U/L (4-34); AST 28 U/L (14-36); African American GFR (CKD) >90 (>60 ml/min/1.73 sqM); Alkaline Phosphatase 80 U/L (38-126); Anion Gap 6 mmol/L; Blood Urea Nitrogen 15 mg/dL (7-17); Calcium 8.4 mg/dL (8.4-10.2); Carbon Dioxide 27 mmol/L (22-30); Chloride 106 mmol/L (98-107); Glucose 160 mg/dL (74-99); Non-African American GFR(CKD) 87 (>60 ml/min/1.73 sqM); Potassium 4.5 mmol/L (3.5-5.1); Sodium 139 mmol/L (137-145); Total Bilirubin 0.6 mg/dL (0.2-1.3)
[2020-07-06 11:17] LABS: Glucose,Whole Blood 168 mg/dL (75-99)
--- NOTE | 2020-07-06 11:26 | P.GSCN ---
History of Present Illness Consult date: 07/06/20 History of present illness: CHIEF COMPLAINT: Abdominal pain with nausea and vomiting HISTORY OF PRESENT ILLNESS: This is a 75-year-old female with a known history of diabetes mellitus, GERD, hyperlipidemia and hypothyroidism. She also has a history of appendectomy, bowel resection, cholecystectomy and hysterectomy. Patient came into the hospital with complaints of left lower abdomen pain that radiates to the right side and also lower back pain. She also has been having some nausea and vomiting. She complains of difficulty swallowing and food gets stuck in her throat. A computed tomography scan of the abdomen and pelvis showing cholecystectomy. Possible distal common bile duct stone. No significant dilation of the bile ducts seen. No evidence of colitis. We have been consulted in regards to patient's abdominal pain. She is afebrile. She denies any fever, chills or sweats. PAST MEDICAL HISTORY: See list. PAST SURGICAL HISTORY: See list. MEDICATIONS: See list. ALLERGIES: See list. SOCIAL HISTORY: No illicit drug use. REVIEW OF SYSTEMS: CONSTITUTIONAL: Denies fever or chills. HEENT: Denies blurred vision, vision changes, or eye pain. Denies hemoptysis CARDIOVASCULAR: Denies chest pain or pressure. RESPIRATORY: No shortness of breath. GASTROINTESTINAL: See HPI for pertinent findings HEMATOLOGIC: Denies bleeding disorders. GENITOURINARY: Denies any blood in urine or increased urinary frequency. SKIN: Denies pruitis. Denies rash. PHYSICAL EXAM: VITAL SIGNS: Reviewed GENERAL: Well-developed in no acute distress. HEENT: No sclera icterus. Extraocular movements grossly intact. Moist buccal mucosa. Head is atraumatic, normocephalic. No nasal drainage. ABDOMEN: Soft. Nondistended NEUROLOGIC: Alert and oriented. Cranial nerves II through XII grossly intact. LABORATORY DATA: WBC 4.7 hemoglobin 12.3 INR 2.8 AST 28 ALT 14 IMAGING: Computed tomography scan of the abdomen and pelvis radiology report is showing cholecystectomy. Possible distal common bile duct stone. No significant dilation of the bile ducts seen. No evidence of colitis. ASSESSMENT: 1. Abdominal pain with nausea and vomiting questionable CBD stone noted on CAT scan. However, LFTs are all within normal range. Symptoms may be related to possible gastroenteritis. Await further GI recommendations PLAN: -Discussed with GI service the planning to proceed with EGD due to patient's difficulty swallowing -No surgical intervention planned Thank you for this consultation. We'll continue follow along during patient's hospitalization. Physician Drug Safety Assistant note has been reviewed by physician. Signing provider agrees with the documented findings, assessment, and plan of care. Past Medical History Past Medical History: Blood Disorder, Cancer, CVA/TIA, Diabetes Mellitus, Fibromyalgia, GERD/Reflux, Hyperlipidemia, Osteoarthritis (OA), Renal Disease, Syncope, Thyroid Disorder, Vascular Disorder Additional Past Medical History / Comment(s): Pt recently admitted to [facility] on 10/01/19 with acute lower back pain/fall with L5 compression fracture and L3 indetermined age compression fracture, bilateral lower extremity weakness, bilateral foot drop. 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 History of Any Multi-Drug Resistant Organisms: MRSA, VRE, VRE Year Discovered:: 2008 R knee per pt MDRO Source:: 03/03/16 L foot Past Surgical History: Adenoidectomy, Appendectomy, Bowel Resection, Cholecystectomy, Hysterectomy, Joint Replacement, Orthopedic Surgery, Tonsillectomy Additional Past Surgical History / Comment(s): 10/26/15 suspension microlarygoscopy with benign bx, thyroidectomy, right TKA with infection-I&D then a revision, left ankle surgery WITH HARDWARE, 2 BOWEL SURGERIES, ORIF rt hip-07/2015, bilateral carpal tunnel releases, 1997 cardiac cath-normal, bilateral heel debridements, COLONOSCOPY, R flank "blood tumor" removed, bilateral cataract removals Past Anesthesia/Blood Transfusion Reactions: Postoperative Nausea & Vomiting (PONV) Additional Past Anesthesia/Blood Transfusion Reaction / Comm: Pt received blood after ORIF of the hip surgery Past Psychological History: Anxiety, Depression Additional Psychological History / Comment(s): Pt has a brother that resides with her 6 months out of the year and a dog. She is currently using her walker and uses a wheelchair at times. She drives short distances. She has a nurse for wound care out of [facility]. . Smoking Status: Never smoker Past Alcohol Use History: None Reported Past Drug Use History: None Reported - Past Family History Father Family Medical History: Dementia Additional Family Medical History / Comment(s): Father of dementia at the age of 91 yrs. Mother Family Medical History: Osteoarthritis (OA), Renal Disease Additional Family Medical History / Comment(s): Mother after kidney stone surgery and went to [facility]. She was 90 yrs. old. Medications and Allergies Home Medications Medication Instructions Recorded Confirmed Type oxyCODONE-APAP 10-325MG [Percocet 1 tab PO Q4H PRN 10/25/15 07/04/20 History 10-325 mg] ALPRAZolam [Xanax] 0.5 mg PO BID 08/27/17 07/04/20 History Gabapentin [Neurontin] 800 mg PO QID 12/10/17 07/04/20 History metFORMIN HCL [Glucophage] 1,000 mg PO BID 12/10/17 07/04/20 History Levothyroxine Sodium 150 mcg PO DAILY 10/01/19 07/04/20 History Omeprazole 40 mg PO DAILY PRN 10/01/19 07/04/20 History Metoprolol Succinate (ER) [Toprol 50 mg PO DAILY #30 tab.er.24h 11/28/19 07/04/20 Rx XL] Warfarin [Coumadin] 2.5 mg PO HS #0 11/28/19 07/04/20 Rx Dulaglutide [Trulicity] 1.5 mg SQ WE 07/04/20 07/04/20 History Escitalopram [Lexapro] 10 mg PO DAILY 07/04/20 07/04/20 History Insulin Degludec [Tresiba] 10 units SQ DAILY 07/04/20 07/04/20 History Sennosides-Docusate Sodium 1 tab PO BID 07/04/20 07/04/20 History [Senokot-S] Allergies Allergy/AdvReac Type Severity Reaction Status Date / Time nickel [Nickel] Allergy Rash/Hives Verified 07/04/20 13:00 adhesive tape AdvReac blister Verified 07/04/20 13:00 duloxetine HCl AdvReac Hallucinati Verified 07/04/20 13:00 [From Cymbalta] ons sertraline HCl [From Zoloft] AdvReac Hallucinati Verified 07/04/20 13:00 ons vortioxetine hydrobromide AdvReac Hallucinati Verified 07/04/20 13:00 [From Brintellix] ons Surgical - Exam Vital Signs Resp 16 07/04/20 12:20 Results - Labs 07/06/20 08:10 07/06/20 08:10 Abnormal Lab Results - Last 24 Hours (Table) 07/05/20 07/05/20 07/05/20 Range/Units 11:49 16:49 20:33 PT (9.0-12.0) sec INR (<1.2) Glucose (74-99) mg/dL POC Glucose (mg/dL) 155 H 182 H 156 H (75-99) mg/dL Total Protein (6.3-8.2) g/dL Albumin (3.5-5.0) g/dL 07/06/20 07/06/20 07/06/20 Range/Units 02:34 06:52 08:10 PT 27.7 H (9.0-12.0) sec INR 2.8 H (<1.2) Glucose (74-99) mg/dL POC Glucose (mg/dL) 170 H 180 H (75-99) mg/dL Total Protein (6.3-8.2) g/dL Albumin (3.5-5.0) g/dL 07/06/20 Range/Units 08:10 PT (9.0-12.0) sec INR (<1.2) Glucose 160 H (74-99) mg/dL POC Glucose (mg/dL) (75-99) mg/dL Total Protein 6.0 L (6.3-8.2) g/dL Albumin 3.0 L (3.5-5.0) g/dL Diabetes panel 07/06/20 Range/Units 08:10 Sodium 139 (137-145) mmol/L Potassium 4.5 (3.5-5.1) mmol/L Chloride 106 (98-107) mmol/L Carbon Dioxide 27 (22-30) mmol/L BUN 15 (7-17) mg/dL Creatinine 0.66 (0.52-1.04) mg/dL Glucose 160 H (74-99) mg/dL Calcium 8.4 (8.4-10.2) mg/dL AST 28 (14-36) U/L ALT 14 (4-34) U/L Alkaline Phosphatase 80 (38-126) U/L Total Protein 6.0 L (6.3-8.2) g/dL Albumin 3.0 L (3.5-5.0) g/dL Calcium panel 07/06/20 Range/Units 08:10 Calcium 8.4 (8.4-10.2) mg/dL Albumin 3.0 L (3.5-5.0) g/dL Pituitary panel 07/06/20 Range/Units 08:10 Sodium 139 (137-145) mmol/L Potassium 4.5 (3.5-5.1) mmol/L Chloride 106 (98-107) mmol/L Carbon Dioxide 27 (22-30) mmol/L BUN 15 (7-17) mg/dL Creatinine 0.66 (0.52-1.04) mg/dL Glucose 160 H (74-99) mg/dL Calcium 8.4 (8.4-10.2) mg/dL Adrenal panel 07/06/20 Range/Units 08:10 Sodium 139 (137-145) mmol/L Potassium 4.5 (3.5-5.1) mmol/L Chloride 106 (98-107) mmol/L Carbon Dioxide 27 (22-30) mmol/L BUN 15 (7-17) mg/dL Creatinine 0.66 (0.52-1.04) mg/dL Glucose 160 H (74-99) mg/dL Calcium 8.4 (8.4-10.2) mg/dL Total Bilirubin 0.6 (0.2-1.3) mg/dL AST 28 (14-36) U/L ALT 14 (4-34) U/L Alkaline Phosphatase 80 (38-126) U/L Total Protein 6.0 L (6.3-8.2) g/dL Albumin 3.0 L (3.5-5.0) g/dL
[2020-07-06] MEDS ORDERED: PHYTONADIONE ORAL 5 MG/5 ML ORAL.SYRG PO STA (14:10)
--- NOTE | 2020-07-06 14:27 | PN ---
PROGRESS NOTE 75-year-old white female came in with diffuse abdominal pain, nausea, vomiting. CT scan shows a possible stone in the common bile duct. She has never had this kind of abdominal pain before. She had a surgical consultation with assessment question of common bile stone duct stone. LFTs were all in normal range. Symptoms may be related to gastroenteritis. Await GI recommendations. GI is going to do an EGD on her at this time due to difficulty swallowing and look at her stomach. Cardiovascular S1-S2. Lungs clear. GI: Mild diffuse tenderness. ASSESSMENT: Acute abdominal pain, nausea, vomiting, common bile duct stone. Possibly EGD and possible discharge if not and check in stools for any stool infection. Please see Gastroenterology recommendations. MMODL / IJN: [id number] /
[2020-07-06] MEDS: SODIUM CHLORIDE 0.9% 1,000 ML IV SCH ×2 (15:20→21:11)
[2020-07-06 16:31] LABS: Glucose,Whole Blood 155 mg/dL (75-99)
[2020-07-06 20:31] LABS: Glucose,Whole Blood 226 mg/dL (75-99)
[2020-07-06] MEDS ORDERED: WARFARIN 2 MG TAB PO SCH (21:00)
--- NOTE | 2020-07-06 23:01 | CONS ---
CONSULTATION DATE OF SERVICE: 07/06/2020. REASON FOR CONSULTATION: Epigastric pain and dysphagia. HISTORY OF PRESENT ILLNESS: The patient is a 75-year-old pleasant white female admitted to the emergency room complaining of abdominal pain as well as dysphagia for the last few days duration. She states that for the last 3 days, she was not able to swallow solids and had several choking episodes. At the same time, started experiencing some epigastric discomfort and came into the emergency room. She had a CT of the abdomen done that showed questionable CBD stone. She apparently recently had serum transaminases within normal limits. She has remote history of cholecystectomy in the past. PAST MEDICAL HISTORY: Significant for hypertension, hyperlipidemia, anxiety, depression, hypothyroidism, gastroesophageal reflux disease. MEDICATIONS: Xanax, Trulicity, Lexapro, Neurontin, Levemir, levothyroxine, metformin, metoprolol, Percocet, Protonix, Senokot, Coumadin. She takes Coumadin for Factor 5 Leiden deficiency and DVT. PAST SURGICAL HISTORY: Cholecystectomy, colonoscopy about 7 years ago. ALLERGIES: DULOXETINE, NICKEL, ZOLOFT and BRINTELLIX. SOCIAL HISTORY: No smoking. No alcohol use. FAMILY HISTORY: Unremarkable. REVIEW OF SYSTEMS: CARDIOPULMONARY: No chest pain or shortness of breath. GENITOURINARY: No dysuria or hematuria. MUSCULOSKELETAL unremarkable. Skin unremarkable. GI as mentioned above. ENDOCRINE: Longstanding history of diabetes mellitus. NEUROLOGY unremarkable. CONSTITUTIONAL: She lost about 15 pounds. No fever, chills, night sweats. Most of the weight loss is voluntarily. HEMATOLOGY unremarkable. ENDOCRINE: Diabetes mellitus. EXAMINATION: Appears comfortable. No apparent distress. Vital signs stable blood pressure 122/65, pulse rate 87, temperature 98.4. HEENT examination unremarkable. Conjunctivae pink. Sclerae anicteric. Oral cavity no lesions. NECK no JVD or lymph node enlargement. CHEST was clear to auscultation. ABDOMEN: Obese. Mild tenderness in the epigastric area. Rest of the abdomen was benign. Bowel sounds are positive. No organomegaly. EXTREMITIES: No pedal edema. SKIN no rashes. NEUROLOGIC: Alert and oriented x3. No focal deficits. LABS: WBC 4.7, hemoglobin 12.3, platelets normal. INR is 2.8. AST and ALT within normal limits T-bili and alk phos are normal. IMPRESSION: 1. Epigastric pain and intermittent dysphagia to solids on and off for the last one week duration. Rule out esophagitis/esophageal stricture. 2. History of deep vein thrombosis in the past secondary to Factor 5 Leiden deficiency on Coumadin with an INR of 2.8. 3. Epigastric pain, improving. 4. Longstanding history of diabetes mellitus. 5. CT scan of the abdomen showed questionable filling defect in the vicinity of the common bile duct and possibility of CBD stone could not be excluded. She has remote history of cholecystectomy. Serum transaminases are within limits, very unlikely we are dealing with CBD stone at the present time. RECOMMENDATIONS: 1. Hold Coumadin. 2. Vitamin K 5 mg. 3. If INR is less than 1.5, will proceed with an upper endoscopy tomorrow. 4. Continue Protonix 40 mg daily. 5. We will follow with you closely. Thank you for this consultation. MMJOANNL / LANCEN: [id number] /
[2020-07-07 02:07] LABS: Glucose,Whole Blood 161 mg/dL (75-99)
[2020-07-07] MEDS: LEVOTHYROXINE 75 MCG TAB PO SCH ×2 (05:41→05:42)
[2020-07-07 07:01] LABS: Glucose,Whole Blood 170 mg/dL (75-99)
[2020-07-07 07:20] LABS: Prothrombin Time 19.6 sec (9.0-12.0)
[2020-07-07] MEDS: METOPROLOL SUCCINATE (ER) 50 MG TAB.ER.24H PO SCH (07:46)
[2020-07-07 07:59] LABS: Prothrombin Time 19.2 sec (9.0-12.0)
[2020-07-07] MEDS ORDERED: PROPOFOL 10 MG/ML 20 ML VIAL IV ONE (08:16)
[2020-07-07] MEDS ORDERED: LIDOCAINE 1% INJ 10MG/ML (20 ML MDV) ONE (08:16)
[2020-07-07] MEDS ORDERED: IV FLUID CONTINUATION 200 ML IV ONE (08:32)
--- NOTE | 2020-07-07 08:35 | P.PCN ---
Date of Procedure: 07/07/20 Procedure(s) Performed: BRIEF HISTORY: Patient is a 75-year-old, pleasant, white female admitted hospital with epigastric discomfort, chest pain and dysphagia for the last few weeks duration. She is scheduled for an upper endoscopy to evaluate further.. PROCEDURE PERFORMED: Esophagogastroduodenoscopy. PREOPERATIVE DIAGNOSIS: Chest pain, epigastric pain and dysphagia for the last few weeks duration. IV sedation per anesthesia. PROCEDURE: After informed consent was obtained, the patient was brought into the endoscopy unit. IV sedation was administered by Anesthesia under continuous monitoring. Initially the Olympus GIF-140 video endoscope was inserted into the mouth. Esophagus intubated without any difficulty. It was gradually advanced into the stomach and duodenum and carefully examined. The bulb and the second part of the duodenum appeared normal. The scope at this time was withdrawn to the stomach, adequately insufflated with air, and upon careful examination, mucosa of the antrum, appeared normal. There was large amount of food noted in the fundus and Body the Stomach Consistent with Diabetic Gastroparesis. The scope was then withdrawn into the esophagus. The GE junction was located at 39 cm from the incisors. There were linear erosions noted in the distal esophagus consistent with LA grade B reflux esophagitis. Rest of the esophagus appeared normal and the patient tolerated the procedure well. IMPRESSION: 1. Linear erosions in the distal esophagus consistent with LA grade B reflux esophagitis. 2. Large amount of retained food in the stomach suggestive of diabetic gastroparesis. 3. No evidence of esophageal stricture RECOMMENDATIONS: The findings of this examination were discussed with the patient. She was advised on small frequent meals. Aggressive Control of blood sugars. Continue Protonix 40 mg daily. If she remains symptomatic she may be given a part of Reglan. 5 mg before each meal and at bedtime Coumadin can be resumed today.
[2020-07-07 08:56] VITALS: RESP 16; TEMP 97.9
[2020-07-07] MEDS: GABAPENTIN 400 MG CAP PO SCH (09:30)
[2020-07-07] MEDS: SENNOSIDES-DOCUSATE SODIUM 1 EACH TAB PO SCH (09:30)
[2020-07-07] MEDS: ESCITALOPRAM 10 MG TAB PO SCH (09:30)
[2020-07-07] MEDS: ALPRAZolam 0.5 MG TAB PO SCH (09:30)
[2020-07-07] MEDS: metFORMIN 500 MG TAB PO SCH (09:30)
[2020-07-07 10:49] VITALS: BP 120/78; PULSE 84
[2020-07-07 11:35] LABS: Glucose,Whole Blood 173 mg/dL (75-99)
--- NOTE | 2020-07-07 11:47 | P.PN ---
Subjective Progress Note Date: 07/07/20 Principal diagnosis: Abdominal pain Patient complaining of left lower quadrant pain. She describes it as being spastic. Recent CAT scan showed no abnormalities left lower quadrant. Tolerating diet currently. Mild nausea. No vomiting. Objective - Vital Signs Vital signs: Vital Signs Temp 97.9 F 07/07/20 08:50 Pulse 84 07/07/20 09:04 Resp 16 07/07/20 08:50 BP 120/78 07/07/20 09:04 Pulse Ox 96 07/07/20 09:04 Intake & Output 07/06/20 07/07/20 07/07/20 18:59 06:59 18:59 Intake Total 225 100 Balance 225 100 Intake: IV 100 Intake, IV Titration 225 Amount Sodium Chloride 0.9% 1, 225 000 ml @ 75 mls/hr IV . [id number] [facility] Rx#:[id number] Other: Voiding Method Toilet # Voids 2 1 - Exam Abdomen: Soft, nondistended, mild left lower quadrant tenderness, - Labs CBC & Chem 7: 07/06/20 08:10 07/06/20 08:10 Labs: Abnormal Lab Results - Last 24 Hours (Table) 07/06/20 07/06/20 07/07/20 Range/Units 16:30 20:30 02:05 PT (9.0-12.0) sec INR (<1.2) POC Glucose (mg/dL) 155 H 226 H 161 H (75-99) mg/dL 07/07/20 07/07/20 07/07/20 Range/Units 06:36 06:53 07:23 PT 19.6 H 19.2 H (9.0-12.0) sec INR 2.0 H 2.0 H (<1.2) POC Glucose (mg/dL) 170 H (75-99) mg/dL 07/07/20 Range/Units 11:27 PT (9.0-12.0) sec INR (<1.2) POC Glucose (mg/dL) 173 H (75-99) mg/dL Assessment and Plan (1) Left lower quadrant abdominal pain Narrative/Plan: Continue diet as ordered. Increase activity. Periodically monitor liver enzymes. Current Visit: Yes Status: Acute Code(s): R10.32 - LEFT LOWER QUADRANT PAIN SNOMED Code(s): 261322588
[2020-07-07] MEDS: INSULIN DETEMIR (LEVEMIR) 100 UNIT/ML SYR SQ SCH (12:13)
[2020-07-07] MEDS: SODIUM CHLORIDE 0.9% 1,000 ML IV SCH (12:17)
[2020-07-07] MEDS: oxyCODONE-APAP 10-325MG 1 EACH TAB PO PRN (13:36)
[2020-07-07] MEDS ORDERED: PANTOPRAZOLE 40 MG TABLET PO SCH (17:30)
[2020-07-11] MEDS ORDERED: Dulaglutide [Trulicity] 1.5 MG SQ SCH (09:00)
--- NOTE | 2020-07-24 07:27 | DS ---
DISCHARGE SUMMARY DATE OF ADMISSION: 07/04/2020 DATE OF DISCHARGE: 07/07/2020 MEDICATIONS: 1. Percocet 10/325 q.4 hours. 2. Xanax 0.5 b.i.d. 3. Neurontin 800 q.i.d. 4. Metformin 1000 b.i.d. 5. Levothyroxine 150 mcg daily. 6. Omeprazole 40 mg daily. 7. Metoprolol succinate 50 mg daily. 8. Warfarin 2.5 mg daily. 9. Lexapro 10 mg daily. 10.Tresiba 10 units daily. 11.Trulicity 1.5 subcu weekly. 12.Senokot b.i.d. 13.Pantoprazole 40 mg daily. CONDITION: Stable. PROGNOSIS: Guarded. AMBULATE: As tolerated. The patient came in with GI abdominal pain of significance. She was cleared by surgery. She had an EGD that showed gastroparesis with no significant ulcers at which time she was cleared for discharge. Increase her Protonix to 40 b.i.d. Cleared from surgical standpoint. She will follow up as an outpatient. Close monitoring of her diabetes will be done and risk factor modification was given. MMODL / IJN: [id number] /
== END 2020-07-07 13:51 | disposition home or self-care (01) ==
LOC: 4SSUR 12:04
PROVIDERS: ADMIT Family Medicine; ATTEND Family Medicine
DX: K21.0 Gastro-esophageal reflux disease with esophagitis (principal); E11.40 Type 2 diabetes mellitus with diabetic neuropathy, unspecified; L97.409 Non-pressure chronic ulcer of unspecified heel and midfoot with unspecified severity; E11.621 Type 2 diabetes mellitus with foot ulcer; E78.5 Hyperlipidemia, unspecified; M54.5 Low back pain; M79.7 Fibromyalgia; M19.90 Unspecified osteoarthritis, unspecified site; M21.372 Foot drop, left foot; M21.371 Foot drop, right foot; I69.354 Hemiplegia and hemiparesis following cerebral infarction affecting left non-dominant side; D66 Hereditary factor VIII deficiency; E89.0 Postprocedural hypothyroidism; E11.42 Type 2 diabetes mellitus with diabetic polyneuropathy; E11.51 Type 2 diabetes mellitus with diabetic peripheral angiopathy without gangrene; N28.9 Disorder of kidney and ureter, unspecified; G89.29 Other chronic pain; M79.672 Pain in left foot; M79.671 Pain in right foot; F41.9 Anxiety disorder, unspecified; F32.9 Major depressive disorder, single episode, unspecified; K80.50 Calculus of bile duct without cholangitis or cholecystitis without obstruction; I10 Essential (primary) hypertension; D68.51 Activated protein C resistance; R32 Unspecified urinary incontinence; R29.6 Repeated falls; Z79.899 Other long term (current) drug therapy; Z79.01 Long term (current) use of anticoagulants; Z79.4 Long term (current) use of insulin; Z79.890 Hormone replacement therapy; Z79.891 Long term (current) use of opiate analgesic; Z90.49 Acquired absence of other specified parts of digestive tract; Z98.0 Intestinal bypass and anastomosis status; Z87.81 Personal history of (healed) traumatic fracture; Z85.850 Personal history of malignant neoplasm of thyroid; Z86.14 Personal history of Methicillin resistant Staphylococcus aureus infection; Z87.09 Personal history of other diseases of the respiratory system; Z87.442 Personal history of urinary calculi; Z16.24 Resistance to multiple antibiotics; Z90.710 Acquired absence of both cervix and uterus; Z96.651 Presence of right artificial knee joint; Z86.718 Personal history of other venous thrombosis and embolism; Z88.8 Allergy status to other drugs, medicaments and biological substances; Z91.048 Other nonmedicinal substance allergy status; Z81.8 Family history of other mental and behavioral disorders; Z82.61 Family history of arthritis; Z84.1 Family history of disorders of kidney and ureter
CPT/HCPCS: 96360; 96361 ×2; 80053 ×2; 83690; 83735; 85025 ×2; 85610 ×4; 81001; 87324; 74176; 43235; G0378 ×4; G0379; J2001; J2270; J2704

== ENCOUNTER → 2020-08-16 | Outpatient (CLI) | payer MEDICARE ==
--- NOTE | 2020-08-16 11:28 | XR ---
EXAMINATION TYPE: XR ankle complete RT DATE OF EXAM: 08/16/2020 COMPARISON: NONE HISTORY: Pain TECHNIQUE: Frontal, lateral and oblique images of the right ankle are obtained. FINDINGS: There is no acute fracture/dislocation evident. The joint spaces appear within normal zee its. The overlying soft tissue appears unremarkable. IMPRESSION: There is no acute fracture or dislocation seen.
--- NOTE | 2020-08-16 11:42 | XR ---
EXAMINATION TYPE: XR knee complete RT DATE OF EXAM: 08/16/2020 CLINICAL HISTORY: pain TECHNIQUE: Three views of the right knee are obtained. COMPARISON: None. FINDINGS: There is no acute fracture/dislocation. Total knee arthroplasty changes noted. Femoral an d tibial components are well seated. IMPRESSION: There is no acute fracture or dislocation.ICD 10 NO FRACTURE, INITIAL EVALUATION
== END | disposition home or self-care (01) ==
LOC: RADXRMAIN 10:41
PROVIDERS: ATTEND Family Medicine
DX: M25.561 Pain in right knee (principal); M25.571 Pain in right ankle and joints of right foot; M13.861 Other specified arthritis, right knee; M13.871 Other specified arthritis, right ankle and foot

== ENCOUNTER → 2020-11-13 | Outpatient (CLI) | payer MEDICARE ==
--- NOTE | 2020-11-13 15:34 | US ---
EXAMINATION TYPE: US thyroid st tissue head/neck DATE OF EXAM: 11/13/2020 COMPARISON: NONE CLINICAL HISTORY: R22.0 SWELLING/MASS HEAD AND NECK. GLAND SIZE: Patient states thyroidectomy 20 years ago. Patient states difficulty swallowing and feels like neck i s swollen. Patient also states that she doesn't have any energy. No residual thyroid tissue appreciated. Bilateral neck scanned, no evidence of lymphadenopathy. IMPRESSION: No recurrent masses within the thyroid bed
== END | disposition home or self-care (01) ==
LOC: RADUSWWP 14:44
PROVIDERS: ATTEND Family Medicine
DX: R22.0 Localized swelling, mass and lump, head (principal); R22.1 Localized swelling, mass and lump, neck
CPT/HCPCS: 76536

== ENCOUNTER 2020-12-05 12:00 | Inpatient (IN) | payer MEDICARE ==
--- NOTE | 2020-12-05 14:10 | XR ---
EXAMINATION TYPE: XR chest 2V DATE OF EXAM: 12/05/2020 COMPARISON: 10/01/2019 INDICATION: Dyspnea TECHNIQUE: Frontal and lateral views of the chest are obtained. FINDINGS: The heart size is normal. The pulmonary vasculature is normal. The lungs are clear. IMPRESSION: 1. No acute pulmonary process.
[2020-12-05 14:43] LABS: Basophils % (A) 0 %; Eosinophils # (A) 0.1 k/uL (0-0.7); Eosinophils % (A) 2 %; HCT 41.5 % (34.0-46.0); HGB 12.8 gm/dL (11.4-16.0); Lymphocytes # (A) 1.2 k/uL (1.0-4.8); Lymphocytes % (A) 19 %; MCHC 30.9 g/dL (31.0-37.0); MCV 90.7 fL (80.0-100.0); Mean Platelet Volume 8.6; Monocytes # (A) 0.4 k/uL (0-1.0); Monocytes % (A) 6 %; Neutrophils # (A) 4.5 k/uL (1.3-7.7); Neutrophils % (A) 72 %; Platelet Count 174 k/uL (150-450); RBC 4.58 m/uL (3.80-5.40); WBC 6.4 k/uL (3.8-10.6)
[2020-12-05 14:46] LABS: D-Dimer 0.29 mg/L FEU (<0.60); INR 2.1 (<1.2)
[2020-12-05 14:47] LABS: Prothrombin Time 20.5 sec (9.0-12.0)
[2020-12-05] MEDS: oxyCODONE-APAP 10-325MG 1 EACH TAB PO PRN ×2 (14:56→20:45)
[2020-12-05] MEDS: FUROSEMIDE 10 MG/ML 2 ML VIAL IV SCH ×2 (14:57→20:46)
[2020-12-05] MEDS: SODIUM CHLORIDE 0.9% 1,000 ML IV SCH (14:58)
[2020-12-05 14:59] LABS: ALT 16 U/L (4-34); AST 21 U/L (14-36); African American GFR (CKD) >90 (>60 ml/min/1.73 sqM); Albumin 3.7 g/dL (3.5-5.0); Alkaline Phosphatase 115 U/L (38-126); Anion Gap 7 mmol/L; Blood Urea Nitrogen 17 mg/dL (7-17); Calcium 9.2 mg/dL (8.4-10.2); Carbon Dioxide 29 mmol/L (22-30); Chloride 103 mmol/L (98-107); Glucose 319 mg/dL (74-99); Non-African American GFR(CKD) 86 (>60 ml/min/1.73 sqM); Potassium 4.2 mmol/L (3.5-5.1); Sodium 139 mmol/L (137-145); Total Bilirubin 0.5 mg/dL (0.2-1.3); Total Protein 7.1 g/dL (6.3-8.2)
[2020-12-05] MEDS ORDERED: hydrALAZINE HCL 20 MG/ML 1 ML VIAL IVP PRN (15:48)
[2020-12-05] MEDS ORDERED: ALPRAZolam 0.5 MG TAB PO STA (15:48)
[2020-12-05 15:54] LABS: T4, Free (Free Thyroxine) 2.19 ng/dL (0.78-2.19)
[2020-12-05 16:01] LABS: Appearance,Urine Clear (Clear); Bilirubin,Urine Negative (Negative); Blood,Urine Trace (Negative); Color,Urine Light Yellow; Glucose,Urine (UA) 4+ (Negative); Ketones,Urine Negative (Negative); Leukocyte Esterase,Urine Negative (Negative); Nitrite,Urine Negative (Negative); Protein,Urine Trace (Negative); RBC,Urine 1 /hpf (0-5); Specific Gravity,Urine 1.029 (1.001-1.035); Squamous Epithelial Cell,Urine 1 /hpf (0-4); Urobilinogen,Urine <2.0 mg/dL (<2.0); WBC,Urine 3 /hpf (0-5)
[2020-12-05 16:43] LABS: Glucose,Whole Blood 241 mg/dL (75-99)
[2020-12-05] MEDS: PANTOPRAZOLE 40 MG TABLET PO SCH (16:59)
[2020-12-05] MEDS: GABAPENTIN 400 MG CAP PO SCH ×2 (17:00→20:45)
[2020-12-05] MEDS: WARFARIN 2.5 MG TAB PO SCH (17:00)
[2020-12-05 20:22] LABS: Glucose,Whole Blood 267 mg/dL (75-99)
[2020-12-05] MEDS: ALPRAZolam 0.5 MG TAB PO SCH (20:45)
[2020-12-05] MEDS: SENNOSIDES-DOCUSATE SODIUM 1 EACH TAB PO SCH (20:45)
[2020-12-05] MEDS: INSULIN ASPART (NovoLOG) 100 UNIT/ML VIAL SQ SCH (20:46)
[2020-12-05] MEDS ORDERED: AMPICILLIN-SULBACTAM 1.5 GM in SODIUM CHLORIDE 0.9% 50 ML IVPB SCH (21:00)
[2020-12-06] MEDS: AMPICILLIN-SULBACTAM 1.5 GM in SODIUM CHLORIDE 0.9% 50 ML IVPB SCH ×5 (00:01→22:57)
--- NOTE | 2020-12-06 00:13 | CONS ---
CONSULTATION DATE OF CONSULTATION: 12/05/2020 REASON FOR CONSULTATION: Left heel ulcer and cellulitis. HISTORY OF PRESENT ILLNESS: The patient is a 75-year-old female who has been admitted directly to hospital for management of left heel ulcer and concern for possible cellulitis. The patient mentioned she did bang her heel a few days ago with resultant laceration and bleeding from the area. The patient has developed an ulcer that seemed to have not healed since then. The patient has used some local treatment without any improvement. Subsequently evaluated by her primary care physician and the patient was admitted to the hospital. The patient had previous problem to the same heel area. The patient has been complaining of pain to the heel to be more of a dull aching and throbbing 5 to 6 out of 10, no radiation. Did not have any foul-smelling drainage. On admission to the hospital, the patient was afebrile. White count was normal. She was started on Unasyn 1.5 g q.12 hours. Did have elevated lactic acid. Infectious Disease was consulted for further management of antibiotic therapy. REVIEW OF SYSTEMS: Positive points have been mentioned in HPI. Rest of systems negative. PAST MEDICAL HISTORY: CVA, TIA, diabetes mellitus, fibromyalgia, gastroesophageal reflux disease, hypertension, hyperlipidemia, osteoarthritis, hypothyroidism. PAST SURGICAL HISTORY: Adenoidectomy, appendectomy, bowel resection, cholecystectomy, hysterectomy, tonsillectomy. SOCIAL HISTORY: No history of smoking, drinking or drug use. FAMILY HISTORY: Mother history of . Father history of dementia. ALLERGIES: NICKEL, DULOXETINE, AND ADHESIVE TAPE. MEDICATIONS: Include the patient is currently on Unasyn 1.5 g q.12h, Xanax, Lexapro, Lasix Neurontin, hydralazine, NovoLog, Levemir, Synthroid, Toprol-XL, Protonix, and IV fluid. PHYSICAL EXAMINATION: On examination her blood pressure is 142/76, pulse of 113, temperature 98.1. She is 93% on room air. General description: The patient is an elderly female lying in bed in no distress. No tachypnea or accessory muscle of respiration use. HEENT: Examination shows no pallor or scleral icterus. Oral mucous membranes dry. No pharyngeal erythema or thrush. NECK: Trachea central. No thyromegaly. LUNGS: Unlabored breathing. Clear to auscultation with no wheeze or crackles. HEART S1, S2. Regular rate and rhythm. ABDOMEN: Soft, no tenderness. EXTREMITIES: No edema of the feet. SKIN examination: Left knee area did have an open wound with no significant slough tissue. No surrounding swelling redness or any drainage NEUROLOGICAL: Patient is awake, alert, oriented times three. Mood and affect normal. LABS: Hemoglobin is 10.1, white count 6.4, BUN of 17, creatinine 0.69. Electrolytes have been normal. is 2.1. Liver enzymes are normal. DIAGNOSTIC IMPRESSION AND PLAN: Patient admitted to the hospital with nonhealing wound to the left heel area traumatic and concern for possible secondary cellulitis likely from a gram-positive skin kianna in this patient with no obvious fever, or any evidence of symptoms or elevated white count. The patient did have a normal CT kidney function. PLAN: 1. We will adjust the dose of Unasyn to 1.5 g q.6 hours. 2. Local wound care with dry Aquacel dressing followed by heel protector. 3. We will follow on clinical condition and culture to further adjust medication if needed. Thank you for this consultation. Will follow this patient along with you. MMODL / IJN: [id number] /
[2020-12-06 02:01] LABS: Hemoglobin A1C 8.9 % (4.0-6.0)
[2020-12-06 05:57] LABS: Glucose,Whole Blood 190 mg/dL (75-99)
[2020-12-06] MEDS: INSULIN DETEMIR (LEVEMIR) 100 UNIT/ML SYR SQ SCH (06:07)
[2020-12-06] MEDS: PANTOPRAZOLE 40 MG TABLET PO SCH ×2 (06:07→17:12)
[2020-12-06] MEDS: LEVOTHYROXINE 75 MCG TAB PO SCH (06:07)
[2020-12-06] MEDS: INSULIN ASPART (NovoLOG) 100 UNIT/ML VIAL SQ SCH ×4 (07:11→20:20)
[2020-12-06 07:21] LABS: Basophils % (A) 1 %; Eosinophils # (A) 0.2 k/uL (0-0.7); Eosinophils % (A) 3 %; HCT 36.4 % (34.0-46.0); HGB 11.8 gm/dL (11.4-16.0); Lymphocytes # (A) 1.8 k/uL (1.0-4.8); Lymphocytes % (A) 34 %; MCH 28.9 pg (25.0-35.0); MCHC 32.4 g/dL (31.0-37.0); MCV 89.4 fL (80.0-100.0); Mean Platelet Volume 8.4; Monocytes # (A) 0.4 k/uL (0-1.0); Monocytes % (A) 9 %; Neutrophils # (A) 2.7 k/uL (1.3-7.7); Neutrophils % (A) 51 %; Platelet Count 142 k/uL (150-450); RBC 4.07 m/uL (3.80-5.40); RDW 12.8 % (11.5-15.5); WBC 5.2 k/uL (3.8-10.6)
[2020-12-06 07:26] LABS: INR 2.1 (<1.2); Prothrombin Time 20.2 sec (9.0-12.0)
[2020-12-06 07:33] LABS: Albumin 2.8 g/dL (3.5-5.0); Calcium 8.6 mg/dL (8.4-10.2); Potassium 3.7 mmol/L (3.5-5.1); Total Bilirubin 0.5 mg/dL (0.2-1.3); Total Protein 5.6 g/dL (6.3-8.2)
[2020-12-06] MEDS: GABAPENTIN 400 MG CAP PO SCH ×4 (08:11→20:19)
[2020-12-06] MEDS: METOPROLOL SUCCINATE (ER) 50 MG TAB.ER.24H PO SCH (08:12)
[2020-12-06] MEDS: ALPRAZolam 0.5 MG TAB PO SCH ×2 (08:12→22:04)
[2020-12-06] MEDS: ESCITALOPRAM 10 MG TAB PO SCH (08:12)
[2020-12-06] MEDS: SENNOSIDES-DOCUSATE SODIUM 1 EACH TAB PO SCH ×2 (08:12→20:19)
[2020-12-06] MEDS: FUROSEMIDE 10 MG/ML 2 ML VIAL IV SCH (08:12)
[2020-12-06] MEDS: oxyCODONE-APAP 10-325MG 1 EACH TAB PO PRN ×3 (08:13→20:19)
[2020-12-06] MEDS ORDERED: REGADENOSON 0.4 MG/5 ML SYRINGE IV PRN ×2 (09:31→09:54)
[2020-12-06] MEDS ORDERED: AMINOPHYLLINE 500 MG/20 ML VIAL IV PRN ×2 (09:31→09:54)
[2020-12-06] MEDS ORDERED: CAFFEINE CITRATE 60 MG/3 ML VIAL IV PRN ×2 (09:31→09:54)
--- NOTE | 2020-12-06 10:16 | P.PN ---
Progress Note - Text Progress Note Date: 12/06/20 Patient will require a new wheelchair to complete ADLs which is unable to be done with a cane or walker. The impression and plan of care has been dictated as directed. : I performed a history and examination of this patient, discussed the same with the dictator. I agree with the dictator's note ,documented as a scribe. Any additional findings or plans will be noted.
--- NOTE | 2020-12-06 10:34 | HP ---
HISTORY AND PHYSICAL A 75-year-old white female came in with left heel ulcer, cellulitis due to a significant open wound on the left heel and cellulitis as well as some atypical chest pain she has been having and shortness of breath. She was admitted to the hospital, toe aching, 6 out of 10. She was started on Unasyn. She had elevated lactic acid, lactic acidosis, which fluid boluses given. Infectious disease consult as well as possibly Cardiology, she has been having some atypical chest pain. May be CAT scan. REVIEW OF SYSTEMS: Fourteen-point review of systems otherwise negative. PAST MEDICAL HISTORY: Cerebrovascular accident , transient ischemic attack, diabetes mellitus, fibromyalgia, GERD, hypertension, dyslipidemia, osteoarthritis, hypothyroidism. SOCIAL HISTORY: No smoking, drugs or alcohol, but she has been falling a lot at home. FAMILY HISTORY: Father dementia. ALLERGIES: NICKEL, ADHESIVE TAPE, DULOXETINE. MEDICATIONS: She takes: 1. Lexapro. 2. Lasix. 3. Xanax. 4. Unasyn. 5. Neurontin. 6. Hydralazine. 7. NovoLog. 8. Levemir. 9. Synthroid. 10.Toprol-XL. 11.Protonix. PHYSICAL EXAMINATION: Blood pressure 140s over 70s, pulse is 113, temperature 98.1 and 93 on room air. HEENT: Normocephalic, atraumatic. Pupils equal, round, reactive. LUNGS: Are clear. HEART: S1, S2. ABDOMEN: Soft, nontender. EXTREMITIES: No cyanosis, clubbing, or edema except for the left heel there is an open wound about 3 x 4 inches over the heel, affects most of the heel area, more bloody serous drainage then foul smelling. White count 6.4, BUN 17, creatinine 0.69. Liver enzymes normal. ASSESSMENT: 1. Left heel acute wounds possible secondary cellulitis. 2. Atypical chest pain with negative troponins. Ordered D-dimer and CAT scan of the chest, started Unasyn and Aquacel to the heel. Possible discharge home if everything turns out good tomorrow. MMODL / IJN: [id number] /
--- NOTE | 2020-12-06 11:07 | CT ---
EXAMINATION TYPE: CT chest wo con DATE OF EXAM: 12/06/2020 COMPARISON: HISTORY: Chest pain, COPD CT DLP: 500.9 mGycm. Automated Exposure Control for Dose Reduction was Utilized. TECHNIQUE: CT scan of the thorax is performed without IV contrast. FINDINGS: LUNGS: There is a small area of subsegmental consolidation involving the left upper lobe on axial sera ge 9. Peripheral area of subsegmental consolidation seen involving superior segment of the left lower lobe. No pleural effusion. No pneumothorax. No sizable pulmonary nodule. There is right peribronchia l subsegmental consolidation. MEDIASTINUM: Lack of IV contrast is noted to limit evaluation for mediastinal and especially hilar ad enopathy. 2 soft tissue fullness in the left hilum noted.. Calcification the tracheobronchial tree no alonso. Coronary artery calcification seen. OTHER: Surgical clips in the gallbladder fossa.. IMPRESSION: 1. There are patchy areas of bilateral small subsegmental groundglass findings within the lungs which can be associated with early pneumonitis. Additionally there is soft tissue fullness involving the l eft hilum and peribronchial region. This could represent an area of adenopathy or additional consolid ation. Follow-up CT of the chest and a short-term basis with contrast recommended. 2. Coronary artery atherosclerotic changes..
--- NOTE | 2020-12-06 11:40 | P.CRDCN ---
History of Present Illness Consult date: 12/06/20 History of present illness: CHIEF COMPLAINT: Chest pain HISTORY OF PRESENT ILLNESS: This is a 75-year-old female with a past medical history significant for hypertension, hyperlipidemia, diabetes mellitus, fibromyalgia, chronic wounds, and factor VIII. 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 We have been asked to see the patient in consultation for chest pain. Patient was strictly admitted to the hospital yesterday secondary to a left foot wound. She has been evaluated by infectious disease and receiving antibiotics. Patient examined this morning at the bedside. Patient states she initially began having chest pain last Thursday. She states that was a sharp pain in the middle of her chest and radiated down her arm. She states yesterday she began having chest pain again around 10 AM that lasted until 10 PM. She describes the pain as a sharp pain and occasionally felt her heart fluttering. She reported shortness of breath and states she became very winded walking to the bathroom. She states the pain is worse with deep inspiration and worse with any movement. The pain is reproducible and the patient has tenderness upon palpation of the chest wall. Patient had a Lexiscan in 2018 which was negative for reversible ischemia. DIAGNOSTICS: EKG reveals sinus mechanism with no signs of acute ischemia Chest xray negative for acute process. Laboratory data: WBC 5.2. Hemoglobin 11.8. Platelet count 142. INR 2.1. Sodium 138. Potassium 3.7. BUN 17. Creatinine 0.76. Troponin negative 3 Current home cardiac medications include Coumadin 2.5 mg daily, metoprolol succinate 75 mg daily, Lasix 10 mg daily as needed REVIEW OF SYSTEMS: At the time of my exam: CONSTITUTIONAL: Denies fever or chills. HEENT: Denies blurred vision, vision changes, or eye pain. Denies hemoptysis CARDIOVASCULAR: Denies chest pain, orthopnea, PND or palpitations RESPIRATORY: No shortness of breath. GASTROINTESTINAL: Denies abdominal pain. Denies nausea or vomiting. HEMATOLOGIC: Denies bleeding disorders. GENITOURINARY: Denies any blood in urine. SKIN: Denies pruitis. Denies rash. Reports wound to left foot. PHYSICAL EXAM: VITAL SIGNS: Reviewed. GENERAL: Well-developed in no acute distress. HEENT: Head is normocephalic. Pupils are equal, round. Sclerae anicteric. Mucous membranes of the mouth are moist. Neck supple. No JVD or thyromegaly LUNGS: Respirations even and unlabored. Lungs essentially clear to auscultation bilaterally. HEART: Regular rate and rhythm. S1 and S2 heard. ABDOMEN: Soft. Nondistended. Nontender. EXTREMITIES: Normal range of motion. No clubbing or cyanosis. Peripheral pulses intact. No lower extremity edema. NEUROLOGIC: Awake and alert. Oriented x 3. ASSESSMENT: Nonhealing ulcer left heel Chest pain, reproducible, troponin negative 3 Hypertension Hyperlipidemia Factor VIII, on anticoagulation with Coumadin PLAN: Resume home cardiac medications Obtain 2-D echo to assess cardiac structure and function Discontinue IV Lasix as patient is euvolemic and BNP within normal limits Obtain Lexiscan stress test tomorrow to assess for reversible ischemia Nurse practitioner note has been reviewed by physician. Signing provider agrees with the documented findings, assessment, and plan of care. Past Medical History Past Medical History: Blood Disorder, Cancer, CVA/TIA, Diabetes Mellitus, Fibromyalgia, GERD/Reflux, Hyperlipidemia, Osteoarthritis (OA), Renal Disease, Syncope, Thyroid Disorder, Vascular Disorder Additional Past Medical History / Comment(s): with L5 compression fracture and L3 indetermined age compression fracture, bilateral lower extremity weakness, b ilateral foot drop. 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 History of Any Multi-Drug Resistant Organisms: MRSA, VRE, VRE Date of last positivie culture/infection: 2008 R knee per pt MDRO Source:: 03/03/16 L foot Past Surgical History: Adenoidectomy, Appendectomy, Bowel Resection, Cholecystectomy, Hysterectomy, Joint Replacement, Orthopedic Surgery, Tonsillectomy Additional Past Surgical History / Comment(s): 10/26/15 suspension microl arygoscopy with benign bx, thyroidectomy, right TKA with infection-I&D then a revision, left ankle surgery WITH HARDWARE, 2 BOWEL SURGERIES, ORIF rt hip- 07/2015, bilateral carpal tunnel releases, 1997 cardiac cath-normal, bilateral heel debridements, COLONOSCOPY, R flank "blood tumor" removed, bilateral cataract removals Past Anesthesia/Blood Transfusion Reactions: Postoperative Nausea & Vomiting (PONV) Additional Past Anesthesia/Blood Transfusion Reaction / Comment(s): Pt received blood after ORIF of the hip surgery Past Psychological History: Anxiety, Depression Additional Psychological History / Comment(s): Pt has a brother that resides with her 6 months out of the year and a dog. She is currently using her walker and uses a wheelchair at times. She drives short distances. . Smoking Status: Never smoker Past Alcohol Use History: None Reported Past Drug Use History: None Reported - Past Family History Father Family Medical History: Dementia Additional Family Medical History / Comment(s): Father of dementia at the age of 91 yrs. Mother Family Medical History: Osteoarthritis (OA), Renal Disease Additional Family Medical History / Comment(s): Mother after kidney stone surgery and went to senior care. She was 90 yrs. old. Medications and Allergies Home Medications Medication Instructions Recorded Confirmed Type oxyCODONE-APAP 10-325MG [Percocet 1 tab PO Q4H PRN 10/25/15 12/05/20 History 10-325 mg] ALPRAZolam [Xanax] 0.5 mg PO BID PRN 08/27/17 12/05/20 History Gabapentin [Neurontin] 800 mg PO QID 12/10/17 12/05/20 History metFORMIN HCL [Glucophage] 1,000 mg PO BID 12/10/17 12/05/20 History Levothyroxine Sodium 150 mcg PO DAILY 10/01/19 12/05/20 History Warfarin [Coumadin] 2.5 mg PO HS #0 11/28/19 12/05/20 Rx Escitalopram [Lexapro] 10 mg PO DAILY 07/04/20 12/05/20 History Sennosides-Docusate Sodium 1 tab PO BID 07/04/20 12/05/20 History [Senokot-S] Dulaglutide [Trulicity] 3 mg SQ WE 12/05/20 12/05/20 History Furosemide [Lasix] 10 mg PO DAILY PRN 12/05/20 12/05/20 History Insulin Glargine,Hum.rec.anlog See Protocol SQ AC-TID 12/05/20 12/05/20 History [Basaglar Kwikpen U-100] Metoprolol Succinate (ER) [Toprol 75 mg PO DAILY 12/05/20 12/05/20 History Xl] Allergies Allergy/AdvReac Type Severity Reaction Status Date / Time nickel [Nickel] Allergy Rash/Hives Verified 12/05/20 13:54 adhesive tape AdvReac blister Verified 12/05/20 13:54 duloxetine HCl AdvReac Hallucinati Verified 12/05/20 13:54 [From Cymbalta] ons sertraline HCl [From Zoloft] AdvReac Hallucinati Verified 12/05/20 13:54 ons vortioxetine hydrobromide AdvReac Hallucinati Verified 12/05/20 13:54 [From Brintellix] ons Physical Exam Vitals: Vital Signs Temp Pulse Resp BP Pulse Ox 12/06/20 08:00 98.0 F 83 20 108/54 95 12/06/20 04:00 98.7 F 76 18 134/82 94 L 12/06/20 02:00 113 H 18 12/06/20 00:00 88 18 124/78 93 L 12/05/20 20:00 98.4 F 90 18 108/70 94 L 12/05/20 16:04 113 H 18 142/76 93 L 12/05/20 15:11 100 179/81 12/05/20 14:00 113 H 12/05/20 13:52 98.1 F 130 H 15 188/94 97 Intake and Output 12/05/20 12/06/20 12/06/20 22:59 06:59 14:59 Intake Total 240 240 Output Total 500 Balance -260 240 Intake: Oral 240 240 Output: Urine 500 Other: # Voids 1 1 1 Weight 87.8 kg 75.7 kg Results 12/06/20 06:34 12/06/20 06:34 Cardiac Enzymes 12/05/20 12/05/20 12/06/20 Range/Units 14:15 15:51 06:34 AST 21 18 (14-36) U/L Troponin I <0.012 (0.000-0.034) ng/mL 12/06/20 12/06/20 Range/Units 06:34 09:01 AST (14-36) U/L Troponin I <0.012 <0.012 (0.000-0.034) ng/mL Coagulation 12/05/20 12/06/20 Range/Units 14:15 06:34 PT 20.5 H 20.2 H (9.0-12.0) sec CBC 12/05/20 12/06/20 Range/Units 14:15 06:34 WBC 6.4 5.2 (3.8-10.6) k/uL RBC 4.58 4.07 (3.80-5.40) m/uL Hgb 12.8 11.8 (11.4-16.0) gm/dL Hct 41.5 36.4 (34.0-46.0) % Plt Count 174 142 L (150-450) k/uL Comprehensive Metabolic Panel 12/05/20 12/06/20 Range/Units 14:15 06:34 Sodium 139 138 (137-145) mmol/L Potassium 4.2 3.7 (3.5-5.1) mmol/L Chloride 103 104 (98-107) mmol/L Carbon Dioxide 29 32 H (22-30) mmol/L BUN 17 17 (7-17) mg/dL Creatinine 0.69 0.76 (0.52-1.04) mg/dL Glucose 319 H 209 H (74-99) mg/dL Calcium 9.2 8.6 (8.4-10.2) mg/dL AST 21 18 (14-36) U/L ALT 16 12 (4-34) U/L Alkaline Phosphatase 115 86 (38-126) U/L Total Protein 7.1 5.6 L (6.3-8.2) g/dL Albumin 3.7 2.8 L (3.5-5.0) g/dL Current Medications Generic Name Dose Route Start Last Admin Trade Name Freq PRN Reason Stop Dose Admin Alprazolam 0.5 mg 12/05/20 21:00 12/06/20 08:12 Alprazolam 0.5 Mg Tab PO 0.5 mg BID TITO Administration Aminophylline 100 mg 12/06/20 09:54 Aminophylline 500 Mg/20 Ml Vial IV 12/06/20 13:54 ONCE PRN Patient Response Caffeine Citrate 60 mg 12/06/20 09:54 Caffeine Citrate 60 Mg/3 Ml Vial IV 12/06/20 13:54 ONCE PRN Patient Response Escitalopram Oxalate 10 mg 12/06/20 09:00 12/06/20 08:12 Escitalopram 10 Mg Tab PO 10 mg DAILY TITO Administration Gabapentin 800 mg 12/05/20 18:00 12/06/20 08:11 Gabapentin 400 Mg Cap PO 800 mg QID TITO Administration Hydralazine HCl 10 mg 12/05/20 15:48 Hydralazine Hcl 20 Mg/Ml 1 Ml Vial IVP Q6HR PRN Blood Pressure - High Sodium Chloride 1,000 mls @ 50 mls/hr 12/05/20 13:30 12/05/20 14:58 Saline 0.9% IV 20 mls/hr .Q20H TITO Administration Ampicillin Sodium/Sulbactam 50 mls @ 100 mls/hr 12/06/20 00:00 12/06/20 05:05 Sodium 1.5 gm/ Sodium Chloride IVPB 100 mls/hr Q6HR TITO Administration Insulin Aspart 0 unit 12/05/20 21:00 12/06/20 07:11 Insulin Aspart (Novolog) 100 Unit/Ml Vial SQ Not Given [facility] Protocol Insulin Detemir 10 unit 12/06/20 07:00 12/06/20 06:07 Insulin Detemir (Levemir) 100 Unit/Ml Syr SQ 10 unit DAILY@0700 TITO Administration Levothyroxine Sodium 150 mcg 12/06/20 06:30 12/06/20 06:07 Levothyroxine 75 Mcg Tab PO 150 mcg DAILY@0630 TITO Administration Metoprolol Succinate 50 mg 12/06/20 09:00 12/06/20 08:12 Metoprolol Succinate (Er) 50 Mg Tab.Er.24h PO 50 mg DAILY TITO Administration Miscellaneous Information 1 each 12/05/20 13:26 Warfarin Per Pharmacy MISCELLANE DIRECTED PRN Per Protocol Non-Formulary Medication 1.5 mg 12/12/20 09:00 Dulaglutide [Trulicity] SQ WE [facility] Oxycodone/Acetaminophen 1 each 12/05/20 13:17 12/06/20 08:13 Oxycodone-Apap 10-325mg 1 Each Tab PO 1 each Q4H PRN Administration Pain Pantoprazole Sodium 40 mg 12/05/20 17:30 12/06/20 06:07 Pantoprazole 40 Mg Tablet PO 40 mg AC-BID TITO Administration Regadenoson 0.4 mg 12/06/20 09:54 Regadenoson 0.4 Mg/5 Ml Syringe IV 12/06/20 13:54 ONCE PRN Per Protocol Senna/Docusate Sodium 1 each 12/05/20 21:00 12/06/20 08:12 Sennosides-Docusate Sodium 1 Each Tab PO 1 each BID TITO Administration Warfarin Sodium 2.5 mg 12/05/20 18:00 12/05/20 17:00 Warfarin 2.5 Mg Tab PO 2.5 mg DAILY@1800 TITO Administration Protocol Intake and Output 12/05/20 12/06/20 12/06/20 22:59 06:59 14:59 Intake Total 240 240 Output Total 500 Balance -260 240 Intake: Oral 240 240 Output: Urine 500 Other: # Voids 1 1 1 Weight 87.8 kg 75.7 kg 12/06/20 06:34 12/06/20 06:34
[2020-12-06 11:43] LABS: Glucose,Whole Blood 237 mg/dL (75-99)
--- NOTE | 2020-12-06 12:23 | ECHOF ---
Referral Reason:chest pain MEASUREMENTS -------- HEIGHT: 162.6 cm WEIGHT: 75.3 kg BP: 108/54 RVIDd: 3.3 cm (< 3.3) IVSd: 0.8 cm (0.6 - 1.1) LVIDd: 4.1 cm (3.9 - 5.3) LVPWd: 1.0 cm (0.6 - 1.1) IVSs: 1.7 cm LVIDs: 2.6 cm LVPWs: 1.5 cm LA Diam: 3.8 cm (2.7 - 3.8) LAESV Index (A-L): 24.61 ml/m Ao Diam: 2.8 cm (2.0 - 3.7) AV Cusp: 1.3 cm (1.5 - 2.6) MV EXCURSION: 11.800 mm (> 18.000) MV EF SLOPE: 40 mm/s (70 - 150) EPSS: 0.6 cm MV E Dwayne: 0.76 m/s MV DecT: 240 ms MV A Dwayne: 1.08 m/s MV E/A Ratio: 0.70 RAP: 5.00 mmHg RVSP: 31.23 mmHg FINDINGS -------- Sinus rhythm. This was a technically adequate study. The left ventricular size is normal. Left ventricular wall thickness is normal. Overall left vent ricular systolic function is normal with, an EF between 55 - 60 %. The right ventricle is mildly enlarged. Normal LA size by volume 22+/-6 ml/m2. The right atrial size is normal. Interatrial and interventricular septum intact. There is mild aortic valve sclerosis. Mild mitral annular calcification present. Mild mitral regurgitation is present. The tricuspid valve appears structurally normal. Mild tricuspid regurgitation present. Right vent ricular systolic pressure is normal at < 35 mmHg. The pulmonic valve was not well visualized. The aortic root size is normal. Normal inferior vena cava with normal inspiratory collapse consistent with estimated right atrial pre ssure of 5 mmHg. There is no pericardial effusion. CONCLUSIONS -------- 1. Left ventricular wall thickness is normal. 2. Overall left ventricular systolic function is normal with, an EF between 55 - 60 %. 3. The right ventricle is mildly enlarged. 4. There is mild aortic valve sclerosis. 5. Mild mitral annular calcification present. 6. Mild mitral regurgitation is present. 7. Mild tricuspid regurgitation present. 8. There is no pericardial effusion. LINEN ROOM SUPERVISOR: Nettie Bashir RDCS
[2020-12-06] MEDS: SODIUM CHLORIDE 0.9% 1,000 ML IV SCH (14:23)
[2020-12-06 16:37] LABS: Glucose,Whole Blood 164 mg/dL (75-99)
[2020-12-06] MEDS: WARFARIN 2.5 MG TAB PO SCH (17:12)
--- NOTE | 2020-12-06 17:30 | PN ---
PROGRESS NOTE DATE OF SERVICE: 12/06/2020 REASON FOR FOLLOWUP: Left heel wound and cellulitis. INTERVAL HISTORY: The patient is currently afebrile. The patient is breathing comfortably. Denies having any chest pain or shortness of breath or cough. Overall pain and discomfort to the left knee is slightly decreased. No vomiting. No diarrhea. PHYSICAL EXAMINATION: Her blood pressure is 126/56, pulse of 87, temperature 98. She is 99% on room air. General description is an elderly female lying in bed in no distress. RESPIRATORY SYSTEM: Unlabored breathing. Clear to auscultation anteriorly. HEART: S1, S2. Regular rate and rhythm. ABDOMEN: Soft. No tenderness. Left foot is currently dressed up. No obvious drainage on the dressing. LABS: Hemoglobin is 11.8, white count 5.2. BUN of 17, creatinine 0.76. DIAGNOSTIC IMPRESSION AND PLAN: Patient with left heel wound, traumatic, with secondary cellulitis, covered with Unasyn; to continue. Local wound care with Aquacel Silver dressing. Keep the area off the pressure and monitor clinical course closely. MMODL / IJN: [id number] /
[2020-12-06 20:18] LABS: Glucose,Whole Blood 244 mg/dL (75-99)
[2020-12-07] MEDS: LEVOTHYROXINE 75 MCG TAB PO SCH (05:37)
[2020-12-07] MEDS: AMPICILLIN-SULBACTAM 1.5 GM in SODIUM CHLORIDE 0.9% 50 ML IVPB SCH ×3 (05:37→17:05)
[2020-12-07 06:25] LABS: Glucose,Whole Blood 228 mg/dL (75-99)
[2020-12-07] MEDS: INSULIN ASPART (NovoLOG) 100 UNIT/ML VIAL SQ SCH ×4 (06:29→21:16)
[2020-12-07] MEDS: PANTOPRAZOLE 40 MG TABLET PO SCH ×2 (06:30→17:05)
[2020-12-07] MEDS: INSULIN DETEMIR (LEVEMIR) 100 UNIT/ML SYR SQ SCH (06:32)
[2020-12-07 08:47] LABS: Basophils % (A) 0 %; Eosinophils # (A) 0.1 k/uL (0-0.7); Eosinophils % (A) 3 %; HCT 35.5 % (34.0-46.0); HGB 11.6 gm/dL (11.4-16.0); Lymphocytes # (A) 1.3 k/uL (1.0-4.8); Lymphocytes % (A) 29 %; MCH 29.3 pg (25.0-35.0); MCHC 32.5 g/dL (31.0-37.0); MCV 90.1 fL (80.0-100.0); Mean Platelet Volume 8.5; Monocytes # (A) 0.4 k/uL (0-1.0); Monocytes % (A) 9 %; Neutrophils # (A) 2.6 k/uL (1.3-7.7); Neutrophils % (A) 58 %; Platelet Count 130 k/uL (150-450); RBC 3.94 m/uL (3.80-5.40); RDW 12.8 % (11.5-15.5); WBC 4.5 k/uL (3.8-10.6)
[2020-12-07 08:54] LABS: Albumin 2.7 g/dL (3.5-5.0); Calcium 8.3 mg/dL (8.4-10.2); Total Bilirubin 0.5 mg/dL (0.2-1.3); Total Protein 5.6 g/dL (6.3-8.2)
[2020-12-07 09:01] LABS: INR 2.6 (<1.2); Prothrombin Time 24.8 sec (9.0-12.0)
--- NOTE | 2020-12-07 10:32 | NM ---
EXAMINATION TYPE: NM stress lexiscan cardiolite DATE OF EXAM: 12/07/2020 COMPARISON: 06/25/2018 HISTORY: S/P TECHNIQUE: After the intravenous administration of 10.2 mCi Tc 99m Sestamibi - Cardiolite resting SP ECT images acquired 45 minutes post injection. The patient received 0.4mg Lexiscan, 26.2 mCi Tc 99m Sestamibi - Stress images obtained [address] injection FINDINGS: Review of stress and rest SPECT images demonstrates no distinct perfusion abnormality. Gated analysi s shows normal wall motion with an estimated left ventricular ejection fraction of 82 %. IMPRESSION: No scintigraphic evidence for reversible ischemia.
[2020-12-07] MEDS: GABAPENTIN 400 MG CAP PO SCH ×4 (11:15→21:19)
[2020-12-07] MEDS: SENNOSIDES-DOCUSATE SODIUM 1 EACH TAB PO SCH ×2 (11:15→21:20)
[2020-12-07] MEDS: ESCITALOPRAM 10 MG TAB PO SCH (11:15)
[2020-12-07] MEDS: METOPROLOL SUCCINATE (ER) 50 MG TAB.ER.24H PO SCH (11:15)
[2020-12-07] MEDS: oxyCODONE-APAP 10-325MG 1 EACH TAB PO PRN ×3 (11:15→21:17)
[2020-12-07 11:50] LABS: Glucose,Whole Blood 297 mg/dL (75-99)
[2020-12-07] MEDS: SODIUM CHLORIDE 0.9% 1,000 ML IV SCH (12:09)
--- NOTE | 2020-12-07 12:36 | EST ---
EXERCISE STRESS AGE: 75 SEX: Female HT: 5'4" WT: 196 lbs. PROTOCOL: Lexicscan STAGE: N/A DURATION OF EXERCISE: N/A HEART RATE REST: 91 BLOOD PRESSURE REST: 133/76 MAXIMUM HEART RATE ACHIEVED: 102 MAXIMUM BLOOD PRESSURE: 144/71 85% MPHR: 123 100% MPHR: 145 METS: N/A INDICATIONS: Chest pain. CLINICAL INFORMATION: Baseline rhythm is a sinus mechanism, rate of 91, normal axis and intervals normal electrocardiogram. Baseline blood pressure 133/76 mmHg. Patient received injection of Lexiscan. Electrocardiograph monitoring revealed no evidence of diagnostic ischemic ST deviation. Rare PVCs were noted. Cardiolite was injected per protocol. CONCLUSION: 1. Nondiagnostic electrocardiograph stress testing. 2. Nuclear images will be reported separately. MMODL / IJN: [id number] /
--- NOTE | 2020-12-07 13:38 | P.PN ---
Subjective Progress Note Date: 12/07/20 CHIEF COMPLAINT: Chest pain HISTORY OF PRESENT ILLNESS: 12/06/2020 This is a 75-year-old female with a past medical history significant for hypertension, hyperlipidemia, diabetes mellitus, fibromyalgia, chronic wounds, and factor VIII. 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 We have been asked to see the patient in consultation for chest pain. Patient was strictly admitted to the hospital yesterday secondary to a left foot wound. She has been evaluated by infectious disease and receiving antibiotics. Patient examined this morning at the bedside. Patient states she initially began having chest pain last Thursday. She states that was a sharp pain in the middle of her chest and radiated down her arm. She states yesterday she began having chest pain again around 10 AM that lasted until 10 PM. She describes the pain as a sharp pain and occasionally felt her heart fluttering. She reported shortness of breath and states she became very winded walking to the bathroom. She states the pain is worse with deep inspiration and worse with any movement. The pain is reproducible and the patient has tenderness upon palpation of the chest wall. Patient had a Lexiscan in 2018 which was negative for reversible ischemia. 12/07/2020 Patient underwent Lexiscan stress test today which was negative for reversible ischemia. Echocardiogram completed revealing ejection fraction 55-60%, mild mitral regurgitation, and mild tricuspid regurgitation. Vital signs are stable. She remains on Coumadin. INR 2.6. PHYSICAL EXAM: VITAL SIGNS: Reviewed. GENERAL: Well-developed in no acute distress. HEENT: Head is normocephalic. Pupils are equal, round. Sclerae anicteric. Mucous membranes of the mouth are moist. Neck supple. No JVD or thyromegaly LUNGS: Respirations even and unlabored. Lungs essentially clear to auscultation bilaterally. HEART: Regular rate and rhythm. S1 and S2 heard. ABDOMEN: Soft. Nondistended. Nontender. EXTREMITIES: Normal range of motion. No clubbing or cyanosis. Peripheral puls es intact. No lower extremity edema. NEUROLOGIC: Awake and alert. Oriented x 3. ASSESSMENT: Nonhealing ulcer left heel Chest pain, reproducible, troponin negative 3 Hypertension Hyperlipidemia Factor VIII, on anticoagulation with Coumadin PLAN: Continue current cardiac medications Patient is stable from a cardiac perspective. We will sign off. Please re- consult if needed. Nurse practitioner note has been reviewed by physician. Signing provider agrees with the documented findings, assessment, and plan of care. Objective - Vital Signs Vital signs: Vital Signs Temp 98 F 12/07/20 10:57 Pulse 92 12/07/20 10:57 Resp 18 12/07/20 10:57 BP 130/82 12/07/20 10:57 Pulse Ox 92 L 12/07/20 10:57 Intake & Output 12/06/20 12/07/20 12/07/20 18:59 06:59 18:59 Intake Total 600 990 Balance 600 990 Weight 89 kg 89 kg Intake: Intake, IV Titration 750 Amount Ampicillin-Sulbactam 1.5 150 gm In Sodium Chloride 0.9 % 50 ml @ 100 mls/hr IVPB Q6HR TITO Rx#:[id number] Sodium Chloride 0.9% 1, 600 000 ml @ 50 mls/hr IV . Q20H TITO Rx#:[id number] Oral 600 240 Other: # Voids 1 3 - Labs CBC & Chem 7: 12/07/20 07:27 12/07/20 07:27 Labs: Abnormal Lab Results - Last 24 Hours (Table) 12/06/20 12/06/20 12/07/20 Range/Units 16:36 20:17 06:24 Plt Count (150-450) k/uL PT (9.0-12.0) sec INR (<1.2) Carbon Dioxide (22-30) mmol/L BUN (7-17) mg/dL Glucose (74-99) mg/dL POC Glucose (mg/dL) 164 H 244 H 228 H (75-99) mg/dL Calcium (8.4-10.2) mg/dL Total Protein (6.3-8.2) g/dL Albumin (3.5-5.0) g/dL 12/07/20 12/07/20 12/07/20 Range/Units 07:27 07:27 07:27 Plt Count 130 L (150-450) k/uL PT 24.8 H (9.0-12.0) sec INR 2.6 H (<1.2) Carbon Dioxide 34 H (22-30) mmol/L BUN 21 H (7-17) mg/dL Glucose 245 H (74-99) mg/dL POC Glucose (mg/dL) (75-99) mg/dL Calcium 8.3 L (8.4-10.2) mg/dL Total Protein 5.6 L (6.3-8.2) g/dL Albumin 2.7 L (3.5-5.0) g/dL 12/07/20 Range/Units 11:48 Plt Count (150-450) k/uL PT (9.0-12.0) sec INR (<1.2) Carbon Dioxide (22-30) mmol/L BUN (7-17) mg/dL Glucose (74-99) mg/dL POC Glucose (mg/dL) 297 H (75-99) mg/dL Calcium (8.4-10.2) mg/dL Total Protein (6.3-8.2) g/dL Albumin (3.5-5.0) g/dL
[2020-12-07 16:25] LABS: Glucose,Whole Blood 242 mg/dL (75-99)
--- NOTE | 2020-12-07 16:28 | PN ---
PROGRESS NOTE DATE OF SERVICE: 12/07/2020 REASON FOR FOLLOWUP: Left heel wound and cellulitis. INTERVAL HISTORY: The patient is currently afebrile. She some problem with palpitation, shortness of breath this morning. Denies having any chest pain, abdominal wall pain or pain to the left heel area. PHYSICAL EXAMINATION: Blood pressure 130/82 with a pulse of 90, temperature 98. She is 92% on room air. General description is an elderly female lying in bed in no distress. RESPIRATORY SYSTEM: Unlabored breathing. Clear to auscultation anteriorly. HEART: S1, S2. ABDOMEN: Soft. No tenderness. Left heel is currently dressed. No obvious drainage on the dressing. LABS: Hemoglobin is 11.6, white count 4.5. BUN of 21, creatinine 0.89. DIAGNOSTIC IMPRESSION AND PLAN: Patient with left heel wound with secondary cellulitis, covered with cefazolin. Plan to finish therapy with oral Keflex. Local care with Aquacel Silver dressing. Follow up in the wound care center. Continue supportive care. MMODL / IJN: [id number] /
[2020-12-07] MEDS: ALPRAZolam 0.5 MG TAB PO SCH ×2 (17:03→21:15)
[2020-12-07] MEDS: WARFARIN 2 MG TAB PO SCH (17:05)
[2020-12-07 20:30] LABS: Glucose,Whole Blood 171 mg/dL (75-99)
[2020-12-08] MEDS: AMPICILLIN-SULBACTAM 1.5 GM in SODIUM CHLORIDE 0.9% 50 ML IVPB SCH ×5 (01:07→23:00)
[2020-12-08] MEDS: SODIUM CHLORIDE 0.9% 1,000 ML IV SCH ×2 (05:46→23:06)
[2020-12-08] MEDS: LEVOTHYROXINE 75 MCG TAB PO SCH (05:47)
[2020-12-08 06:12] LABS: Glucose,Whole Blood 182 mg/dL (75-99)
[2020-12-08] MEDS: INSULIN DETEMIR (LEVEMIR) 100 UNIT/ML SYR SQ SCH (06:29)
[2020-12-08] MEDS: INSULIN ASPART (NovoLOG) 100 UNIT/ML VIAL SQ SCH ×4 (06:29→20:19)
[2020-12-08] MEDS: PANTOPRAZOLE 40 MG TABLET PO SCH ×2 (06:29→18:18)
--- NOTE | 2020-12-08 06:36 | PN ---
PROGRESS NOTE A 75-year-old white female 111 who is complaining of having difficulty with swallowing and chest pain, dysphagia. She wants EGD possibly done in the morning versus swallow eval. Will get a GI consult for an EGD tomorrow. She had a stress test. Cardiology cleared for discharge. Chest CT was done also. Nondiagnostic ST-T changes. Lexiscan part of the stress test showed ejection fraction 82%. No reversible ischemia. This patient is cleared for discharge. Get EGD in the morning. Possible discharge home. MMODL / IJN: [id number] /
[2020-12-08 08:07] LABS: INR 2.6 (<1.2); Prothrombin Time 25.3 sec (9.0-12.0)
[2020-12-08] MEDS: GABAPENTIN 400 MG CAP PO SCH ×4 (08:45→23:00)
[2020-12-08] MEDS: ESCITALOPRAM 10 MG TAB PO SCH (08:45)
[2020-12-08] MEDS: ALPRAZolam 0.5 MG TAB PO SCH ×2 (08:46→20:19)
[2020-12-08] MEDS: SENNOSIDES-DOCUSATE SODIUM 1 EACH TAB PO SCH ×2 (08:46→20:19)
[2020-12-08] MEDS: METOPROLOL SUCCINATE (ER) 50 MG TAB.ER.24H PO SCH (08:46)
[2020-12-08] MEDS: oxyCODONE-APAP 10-325MG 1 EACH TAB PO PRN ×4 (08:51→23:00)
--- NOTE | 2020-12-08 11:06 | CONS ---
CONSULTATION REFERRING PHYSICIAN: Dr. Eloy Griffin. DATE OF DICTATION: December 08, 2020. REASON FOR CONSULTATION: Dysphagia and severe heartburn. HISTORY OF PRESENT ILLNESS: The patient is a 76-year-old pleasant white female who was admitted to the hospital because of left foot wound, but while in the hospital, she was complaining of severe chest pain mostly in her pericardial area radiating to the left arm and hence she underwent a cardiac workup which was all negative. While in the hospital, she has also been complaining of intermittent dysphagia to solids for the last 2 months duration. These episodes happen once or twice a week and associated with severe heartburn. She denies any odynophagia. She was started on Protonix 40 mg twice daily and we are requested for an EGD to be done this morning. However, the patient has been on Coumadin with an INR of 2.8 and hence EGD could not be performed. PAST MEDICAL HISTORY: Significant for hypertension, hyperlipidemia, history of fibromyalgia, diabetes mellitus, factor 8 deficiency, on Coumadin. MEDICATIONS: Medications at home include: Percocet, Glucophage, Coumadin, Senokot, Toprol, levothyroxine, Neurontin, Lasix, Lexapro, Trulicity, and Xanax. ALLERGIES: TO NICKEL, ADHESIVE TAPE, CYMBALTA, ZOLOFT, AND BRINTELLIX. PAST SURGICAL HISTORY: Adenoidectomy, appendectomy, cholecystectomy, hysterectomy, tonsillectomy. SOCIAL HISTORY: No smoking or alcohol use. FAMILY HISTORY: Father has dementia. REVIEW OF SYSTEMS: CARDIOPULMONARY: She did have some chest pain but no shortness of breath. : No dysuria or hematuria. MUSCULOSKELETAL unremarkable. SKIN unremarkable. PSYCHIATRIC unremarkable. NEUROLOGY: Unremarkable. ENT: Vision unremarkable. ENDOCRINE: Diabetes mellitus. HEMATOLOGY unremarkable. CONSTITUTIONAL: No recent weight loss. No fever, chills, night sweats. PHYSICAL EXAMINATION: She appears comfortable. No apparent distress. Vital signs stable. Blood pressure is 136/65, pulse rate 80, temperature 97.9. HEENT examination unremarkable. Conjunctivae pink. Sclerae anicteric. Oral cavity no lesions. NECK: No JVD or lymph node enlargement. CHEST was clear to auscultation. HEART: Regular rate and rhythm. ABDOMEN: Soft. Minimal tenderness in the epigastric area. Rest of the abdomen was benign. Bowel sounds are positive. No organomegaly. EXTREMITIES: No pedal edema. SKIN: No rashes. NEURO: She is alert and oriented x3. No focal deficits. LABS: WBC 4.5, hemoglobin 11.6, platelets 130. INR 2.6, ALT, AST, T-bilirubin and alkaline phosphatase are within normal limits. IMPRESSION: 1. Intermittent dysphagia to solids for the last 2 months duration associated with severe heartburn, all suggestive of gastroesophageal reflux symptoms. The patient has been on Protonix 40 mg twice daily since being in the hospital. No prior history of upper endoscopy in the past. We were requested to perform an upper endoscopy today, but patient has been on Coumadin with an INR of 2.6, and hence the procedure could not be performed. 2. Atypical chest pain. She underwent a stress test yesterday that was negative. Cardiology following the patient closely. 3. History of diabetes mellitus, hypertension, hyperlipidemia. 4. History of fibromyalgia. 5. 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 6. History of deep vein thrombosis, on Coumadin. RECOMMENDATIONS: 1. We will obtain barium esophagogram to evaluate for any evidence of esophageal stricture. 2. Continue Protonix 40 mg twice daily. 3. If the barium swallow is normal, she can be discharged home with outpatient followup in 2 weeks at which time we will consider outpatient EGD and colonoscopy as patient also has prior history of colon polyps and last colonoscopy was several years ago. The plan was discussed with the patient. She is agreeable to it. Thank you for this consultation. MMJOANNL / LANCEN: [id number] /
[2020-12-08 11:48] LABS: Glucose,Whole Blood 188 mg/dL (75-99)
--- NOTE | 2020-12-08 12:57 | P.PN ---
Subjective Progress Note Date: 12/08/20 CHIEF COMPLAINT: Chest pain HISTORY OF PRESENT ILLNESS: 12/06/2020 This is a 75-year-old female with a past medical history significant for hypertension, hyperlipidemia, diabetes mellitus, fibromyalgia, chronic wounds, and factor VIII. 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 We have been asked to see the patient in consultation for chest pain. Patient was strictly admitted to the hospital yesterday secondary to a left foot wound. She has been evaluated by infectious disease and receiving antibiotics. Patient examined this morning at the bedside. Patient states she initially began having chest pain last Thursday. She states that was a sharp pain in the middle of her chest and radiated down her arm. She states yesterday she began having chest pain again around 10 AM that lasted until 10 PM. She describes the pain as a sharp pain and occasionally felt her heart fluttering. She reported shortness of breath and states she became very winded walking to the bathroom. She states the pain is worse with deep inspiration and worse with any movement. The pain is reproducible and the patient has tenderness upon palpation of the chest wall. Patient had a Lexiscan in 2018 which was negative for reversible ischemia. 12/07/2020 Patient underwent Lexiscan stress test today which was negative for reversible ischemia. Echocardiogram completed revealing ejection fraction 55-60%, mild mitral regurgitation, and mild tricuspid regurgitation. Vital signs are stable. She remains on Coumadin. INR 2.6. 12/08: Lexiscan stress test was normal. Patient states she is feeling okay. No chest pain or shortness of breath. No palpitations. She has been afebrile, heart rate in the 80s, blood pressure 136/65, pulse ox 97% on room air. Orthostatic vital signs have been negative. INR 2.6. PHYSICAL EXAM: GENERAL: Well-developed in no acute distress. HEENT: Head is normocephalic. Pupils are equal, round. Sclerae anicteric. Mucous membranes of the mouth are moist. Neck supple. No JVD or thyromegaly LUNGS: Respirations even and unlabored. Lungs essentially clear to auscultation bilaterally. HEART: Regular rate and rhythm. S1 and S2 heard. ABDOMEN: Soft. Nondistended. Nontender. EXTREMITIES: Normal range of motion. No clubbing or cyanosis. Peripheral pulses intact. No lower extremity edema. NEUROLOGIC: Awake and alert. Oriented x 3. ASSESSMENT: Nonhealing ulcer left heel Chest pain, reproducible, troponin negative 3 Hypertension Hyperlipidemia Factor VIII, on anticoagulation with Coumadin PLAN: Continue current cardiac medications Patient is stable from a cardiac perspective. We will sign off. Please re- consult if needed. Nurse practitioner note has been reviewed by physician. Signing provider agrees with the documented findings, assessment, and plan of care. Objective - Vital Signs Vital signs: Vital Signs Temp 97.8 F 12/08/20 12:00 Pulse 84 12/08/20 12:00 Resp 18 12/08/20 12:00 BP 121/58 12/08/20 12:00 Pulse Ox 97 12/08/20 12:00 Intake & Output 12/07/20 12/08/20 12/08/20 18:59 06:59 18:59 Intake Total 458 Output Total 500 350 Balance -42 -350 Weight 89 kg 89.8 kg Intake: Oral 458 Output: Urine 500 350 Other: # Bowel Movements 1 - Labs CBC & Chem 7: 12/07/20 07:27 12/07/20 07:27 Labs: Abnormal Lab Results - Last 24 Hours (Table) 12/07/20 12/07/20 12/08/20 Range/Units 16:23 20:27 06:07 PT (9.0-12.0) sec INR (<1.2) POC Glucose (mg/dL) 242 H 171 H 182 H (75-99) mg/dL 12/08/20 12/08/20 Range/Units 07:30 11:46 PT 25.3 H (9.0-12.0) sec INR 2.6 H (<1.2) POC Glucose (mg/dL) 188 H (75-99) mg/dL
[2020-12-08 14:06] LABS: HCT 33.8 % (34.0-46.0); HGB 11.1 gm/dL (11.4-16.0); MCH 29.8 pg (25.0-35.0); MCHC 32.9 g/dL (31.0-37.0); MCV 90.6 fL (80.0-100.0); Mean Platelet Volume 9.4; Platelet Count 135 k/uL (150-450); RBC 3.73 m/uL (3.80-5.40); RDW 12.9 % (11.5-15.5); WBC 3.9 k/uL (3.8-10.6)
[2020-12-08 14:14] LABS: African American GFR (CKD) >90 (>60 ml/min/1.73 sqM); Anion Gap 1 mmol/L; Blood Urea Nitrogen 16 mg/dL (7-17); Calcium 8.4 mg/dL (8.4-10.2); Carbon Dioxide 31 mmol/L (22-30); Chloride 107 mmol/L (98-107); Glucose 199 mg/dL (74-99); Non-African American GFR(CKD) 81 (>60 ml/min/1.73 sqM); Potassium 3.9 mmol/L (3.5-5.1); Sodium 139 mmol/L (137-145)
[2020-12-08 16:44] LABS: Glucose,Whole Blood 235 mg/dL (75-99)
[2020-12-08] MEDS: WARFARIN 2 MG TAB PO SCH (18:19)
--- NOTE | 2020-12-08 19:34 | PN ---
PROGRESS NOTE DATE OF SERVICE: 12/08/2020 REASON FOR FOLLOWUP: Left heel wound and cellulitis. INTERVAL HISTORY: The patient is currently afebrile. The patient is breathing comfortably. Denies having any chest pain or shortness of breath. Occasional cough. No abdominal pain. No pain to the left heel area. PHYSICAL EXAMINATION: Blood pressure 117/64, pulse of 83, temperature 98. She is 97% on room air. General description: The patient is an elderly female lying in bed in no distress. Respiratory system: Unlabored breathing. Clear to auscultation anteriorly. Heart S1, S2. Regular rate and rhythm. ABDOMEN: Soft, no tenderness. Left heel wound with no significant slough tissue. LABS: Hemoglobin 11.9, white count 3.9, BUN of 16, creatinine 0.73. DIAGNOSTIC IMPRESSION AND PLAN: Patient with left heel wound with secondary cellulitis covered with Unasyn. Local care with Aquacel Silver dressing. Keep the area off the pressure. Continue supportive care. MMODL / IJN: [id number] /
[2020-12-08 20:09] LABS: Glucose,Whole Blood 226 mg/dL (75-99)
[2020-12-09 06:15] LABS: Glucose,Whole Blood 230 mg/dL (75-99)
--- NOTE | 2020-12-09 06:29 | PN ---
PROGRESS NOTE A 75-year-old white female, COPD, foot infection, diabetes mellitus. Cardiovascular S1, S2. Lungs clear. GI soft. Hematology negative Homans. She says she does not feel good. She wants her barium swallow and possibly EGD and colonoscopy prior to going home. She remains on antibiotics for broad spectrum for infection. ASSESSMENT: 1. Dysphasia. 2. Possible esophageal stenosis. 3. Chronic gastroesophageal reflux disease. 4. Gastroparesis. 5. Insulin-dependent diabetes mellitus. 6. Chronic obstructive pulmonary disease. 7. Foot infection. Do barium swallow prior to discharge and possibly EGD and colonoscopy on discharge. MMODL / IJN: [id number] /
[2020-12-09] MEDS: LEVOTHYROXINE 75 MCG TAB PO SCH (06:43)
[2020-12-09] MEDS: PANTOPRAZOLE 40 MG TABLET PO SCH ×2 (06:43→17:01)
[2020-12-09] MEDS: AMPICILLIN-SULBACTAM 1.5 GM in SODIUM CHLORIDE 0.9% 50 ML IVPB SCH ×4 (06:43→23:18)
[2020-12-09] MEDS: INSULIN ASPART (NovoLOG) 100 UNIT/ML VIAL SQ SCH ×4 (06:44→20:28)
[2020-12-09] MEDS: INSULIN DETEMIR (LEVEMIR) 100 UNIT/ML SYR SQ SCH (06:44)
[2020-12-09 07:00] LABS: INR 2.6 (<1.2); Prothrombin Time 25.1 sec (9.0-12.0)
[2020-12-09] MEDS: METOPROLOL SUCCINATE (ER) 50 MG TAB.ER.24H PO SCH (09:05)
[2020-12-09] MEDS: oxyCODONE-APAP 10-325MG 1 EACH TAB PO PRN ×3 (09:05→17:02)
[2020-12-09] MEDS: SENNOSIDES-DOCUSATE SODIUM 1 EACH TAB PO SCH ×2 (09:05→20:28)
[2020-12-09] MEDS: ALPRAZolam 0.5 MG TAB PO SCH ×2 (09:05→20:28)
[2020-12-09] MEDS: GABAPENTIN 400 MG CAP PO SCH ×4 (09:05→23:18)
[2020-12-09] MEDS: ESCITALOPRAM 10 MG TAB PO SCH (09:06)
[2020-12-09 11:46] LABS: Glucose,Whole Blood 253 mg/dL (75-99)
--- NOTE | 2020-12-09 12:14 | PN ---
PROGRESS NOTE DATE OF SERVICE: 12/09/2020 Patient is a 75-year-old pleasant white female admitted to hospital with atypical chest pain and had a stress test done that was negative. In the meantime, she was complaining of dysphagia and severe heartburn. She was started on Protonix 40 mg twice daily and is feeling much better. Barium esophagogram was requested yesterday and so far it has not been done. In fact it was rescheduled for tomorrow. In the meantime, overall, patient is doing well. PHYSICAL EXAMINATION: She appears comfortable. VITAL SIGNS: Stable. Blood pressure 133/86, pulse rate 85 per minute and afebrile. HEENT examination unremarkable. Conjunctivae pink. Sclerae anicteric. Oral cavity no lesions. NECK no JVD or lymph node enlargement. CHEST: Clear to auscultation. HEART: Regular rate and rhythm. ABDOMEN: Soft. Bowel sounds are positive. No organomegaly. EXTREMITIES: No pedal edema. NEUROLOGIC: Alert and oriented x3. No focal deficits. LABS: From today INR is 2.6. IMPRESSION: 1. Dysphagia/gastroesophageal reflux disease of several weeks duration. Lately she has been having intermittent dysphagia to solids once or twice a week. The patient is scheduled for barium swallow tomorrow. 2. History of factor 5 Leiden deficiency on Coumadin. 3. History of fibromyalgia. 4. History of hypertension and hyperlipidemia. RECOMMENDATIONS: 1. Await barium swallow from tomorrow. 2. Continue Protonix 40 mg twice daily. 3. Soft diet. 4. If the barium swallow is negative, she can be discharged home and will plan an outpatient upper endoscopy in 3-4 weeks. Thank you for this consultation. MMODL / IJN: [id number] /
--- NOTE | 2020-12-09 12:53 | PN ---
PROGRESS NOTE A 75-year-old white female complaining that her whole body is aching. She is eating and drinking a bit better today. She is going to get a barium swallow tomorrow prior to discharge. We will start her on low-dose Solu-Medrol for myalgias throughout her body. We are going to start her on zinc as she says zinc helps her feel better. She just does not feel good. We are treating her for community-acquired pneumonia. Also she appears to be breathing better even though she says she does not feel good. Her oxygen level may be low today, as did run at 98, blood pressure is 128/78, temp 98.1, respiratory 14 to 16. She appears comfortably in bed. Answers questions appropriately. CARDIOVASCULAR: S1, S2. LUNGS are clear. GI soft. HEMATOLOGY: Negative Homans. PSYCH: Fair mood and affect. Waiting for pulmonary to see her for community-acquired pneumonia. We will continue with Unasyn and get started on some Solu-Medrol and some zinc. We will see her in the morning. MMODL / IJN: [id number] /
[2020-12-09] MEDS: ZINC SULFATE 220 MG CAP PO SCH (12:59)
[2020-12-09] MEDS ORDERED: IPRATROPIUM-ALBUTEROL 3 ML NEB INHALATION PRN (14:43)
[2020-12-09 16:45] LABS: Glucose,Whole Blood 245 mg/dL (75-99)
[2020-12-09] MEDS: methylPREDNISolone SOD SUCCI 40 MG/ML 1 ML VIAL IV SCH ×2 (17:00→23:18)
[2020-12-09] MEDS: WARFARIN 2 MG TAB PO SCH (17:02)
--- NOTE | 2020-12-09 19:14 | PN ---
PROGRESS NOTE DATE OF SERVICE: 12/09/2020 REASON FOR FOLLOWUP: Left heel wound and cellulitis. INTERVAL HISTORY: The patient is currently afebrile. Patient is breathing comfortably. The patient did mention right heel is getting better. Denies any pain or discomfort to the heel area. No chest pain or cough. No abdominal pain. No abdominal pain. No diarrhea. PHYSICAL EXAMINATION: Blood pressure 120/78 with a pulse of 81, temperature 98.1. She is 97% on room air. General description is an elderly female lying in bed in no distress. Respiratory system: Unlabored breathing. Clear to auscultation anteriorly. Heart S1, S2. Regular rate and rhythm. Abdomen soft, no tenderness. Left heel is currently dressed up. LABS: INR is 2.6. DIAGNOSTIC IMPRESSION AND PLAN: Patient with left heel wound, pressure ulcer with secondary cellulitis. Patient is covered with Unasyn. Finish therapy with short course of oral Augmentin. Local wound care with Aquacel silver dressing. MMODL / IJN: [id number] /
[2020-12-09 20:02] LABS: Glucose,Whole Blood 251 mg/dL (75-99)
[2020-12-09] MEDS: SODIUM CHLORIDE 0.9% 1,000 ML IV SCH (20:30)
--- NOTE | 2020-12-09 21:44 | P.CNPUL ---
History of Present Illness Consult date: 12/09/20 Reason for consult: dyspnea, cough, hypoxemia Chief complaint: Shortness of breath History of present illness: This is a 75-year-old morbidly obese female with the primary history of hypertension and hypertensive cardiovascular disease dyslipidemia also has a history of the chronic fibromyalgia wound infection, patient admitted into the hospital with left foot wound infection has been short of breath intermittent chest pain, cardiovascular services evaluated the patient thinking atypical chest pain, her computed tomography scan of his chest significant for consolidation subsegmental area and left upper lobe and also left lower lobe likely early pneumonia patient is appropriately being treated with IV Unasyn, Review of Systems All systems: negative Past Medical History Past Medical History: Blood Disorder, Cancer, CVA/TIA, Diabetes Mellitus, Fibromyalgia, GERD/Reflux, Hyperlipidemia, Osteoarthritis (OA), Renal Disease, Syncope, Thyroid Disorder, Vascular Disorder Additional Past Medical History / Comment(s): with L5 compression fracture and L3 indetermined age compression fracture, bilateral lower extremity weakness, bilateral foot drop. 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 History of Any Multi-Drug Resistant Organisms: MRSA, VRE, VRE Date of last positivie culture/infection: 2008 R knee per pt MDRO Source:: 03/03/16 L foot Past Surgical History: Adenoidectomy, Appendectomy, Bowel Resection, Cholecystectomy, Hysterectomy, Joint Replacement, Orthopedic Surgery, Tonsillectomy Additional Past Surgical History / Comment(s): 10/26/15 suspension microlarygoscopy with benign bx, thyroidectomy, right TKA with infection-I&D then a revision, left ankle surgery WITH HARDWARE, 2 BOWEL SURGERIES, ORIF rt hip-07/2015, bilateral carpal tunnel releases, 1997 cardiac cath-normal, bilateral heel debridements, COLONOSCOPY, R flank "blood tumor" removed, bilateral cataract removals Past Anesthesia/Blood Transfusion Reactions: Postoperative Nausea & Vomiting (PONV) Additional Past Anesthesia/Blood Transfusion Reaction / Comment(s): Pt received blood after ORIF of the hip surgery Past Psychological History: Anxiety, Depression Additional Psychological History / Comment(s): Pt has a brother that resides with her 6 months out of the year and a dog. She is currently using her walker and uses a wheelchair at times. She drives short distances. . Smoking Status: Never smoker Past Alcohol Use History: None Reported Past Drug Use History: None Reported - Past Family History Father Family Medical History: Dementia Additional Family Medical History / Comment(s): Father of dementia at the age of 91 yrs. Mother Family Medical History: Osteoarthritis (OA), Renal Disease Additional Family Medical History / Comment(s): Mother after kidney stone surgery and went to correction. She was 90 yrs. old. Medications and Allergies Home Medications Medication Instructions Recorded Confirmed Type oxyCODONE-APAP 10-325MG [Percocet 1 tab PO Q4H PRN 10/25/15 12/05/20 History 10-325 mg] ALPRAZolam [Xanax] 0.5 mg PO BID PRN 08/27/17 12/05/20 History Gabapentin [Neurontin] 800 mg PO QID 12/10/17 12/05/20 History metFORMIN HCL [Glucophage] 1,000 mg PO BID 12/10/17 12/05/20 History Levothyroxine Sodium 150 mcg PO DAILY 10/01/19 12/05/20 History Warfarin [Coumadin] 2.5 mg PO HS #0 11/28/19 12/05/20 Rx Escitalopram [Lexapro] 10 mg PO DAILY 07/04/20 12/05/20 History Sennosides-Docusate Sodium 1 tab PO BID 07/04/20 12/05/20 History [Senokot-S] Dulaglutide [Trulicity] 3 mg SQ WE 12/05/20 12/05/20 History Furosemide [Lasix] 10 mg PO DAILY PRN 12/05/20 12/05/20 History Insulin Glargine,Hum.rec.anlog See Protocol SQ AC-TID 12/05/20 12/05/20 History [Basaglar Kwikpen U-100] Metoprolol Succinate (ER) [Toprol 75 mg PO DAILY 12/05/20 12/05/20 History Xl] Allergies Allergy/AdvReac Type Severity Reaction Status Date / Time nickel [Nickel] Allergy Rash/Hives Verified 12/05/20 13:54 adhesive tape AdvReac blister Verified 12/05/20 13:54 duloxetine HCl AdvReac Hallucinati Verified 12/05/20 13:54 [From Cymbalta] ons sertraline HCl [From Zoloft] AdvReac Hallucinati Verified 12/05/20 13:54 ons vortioxetine hydrobromide AdvReac Hallucinati Verified 12/05/20 13:54 [From Brintellix] ons Physical Exam Vitals: Vital Signs Temp Pulse Pulse Pulse Resp BP BP 12/09/20 20:00 98.1 F 86 16 122/77 12/09/20 17:00 98.5 F 85 18 129/81 12/09/20 15:42 86 12/09/20 15:35 86 12/09/20 12:00 98.1 F 81 16 120/78 12/09/20 08:00 98.1 F 88 14 128/78 12/09/20 03:45 97.7 F 80 14 118/61 12/09/20 02:00 16 12/08/20 23:13 97.9 F 82 16 118/68 Pulse Ox 12/09/20 20:00 94 L 12/09/20 17:00 97 12/09/20 15:42 12/09/20 15:35 12/09/20 12:00 97 12/09/20 08:00 87 L 12/09/20 03:45 98 12/09/20 02:00 12/08/20 23:13 96 Intake and Output 12/09/20 12/09/20 12/09/20 06:59 14:59 22:59 Intake Total 480 622 Balance 480 622 Intake: Intake, IV Titration 400 Amount Sodium Chloride 0.9% 1, 400 000 ml @ 50 mls/hr IV . Q20H [facility] Rx#:[id number] Oral 480 222 Other: # Voids 1 1 1 Weight 91.7 kg - Constitutional General appearance: average body habitus, cooperative, disheveled - EENT Eyes: PERRLA ENT: hearing grossly normal Ears: bilateral: normal - Neck Neck: normal ROM Carotids: bilateral: upstroke normal Thyroid: bilateral: normal size - Respiratory Respiratory: bilateral: CTA - Cardiovascular Rhythm: regular Heart sounds: normal: S1, S2 - Gastrointestinal General gastrointestinal: normal bowel sounds - Integumentary Integumentary: normal turgor - Neurologic Neurologic: CNII-XII intact - Musculoskeletal Musculoskeletal: gait normal, generalized weakness, strength equal bilaterally - Psychiatric Psychiatric: A&O x's 3, appropriate affect, intact judgment & insight Results - Laboratory Findings CBC and BMP: 12/08/20 07:30 12/08/20 07:30 PT/INR, D-dimer PT 25.1 sec (9.0-12.0) H 12/09/20 06:21 INR 2.6 (<1.2) H 12/09/20 06:21 D-Dimer 0.29 mg/L FEU (<0.60) 12/05/20 14:15 Abnormal lab findings: Abnormal Labs 12/05/20 12/05/20 12/05/20 14:15 14:15 14:15 RBC Hgb Hct MCHC 30.9 L Plt Count PT 20.5 H INR 2.1 H Carbon Dioxide BUN Glucose 319 H POC Glucose (mg/dL) Hemoglobin A1c Plasma Lactic Acid Thanh Calcium Total Protein Albumin TSH <0.015 L Urine Protein Urine Glucose (UA) Urine Blood 12/05/20 12/05/20 12/05/20 14:15 14:15 15:17 RBC Hgb Hct MCHC Plt Count PT INR Carbon Dioxide BUN Glucose POC Glucose (mg/dL) Hemoglobin A1c 8.9 H Plasma Lactic Acid Thanh 2.3 H* Calcium Total Protein Albumin TSH Urine Protein Trace H Urine Glucose (UA) 4+ H Urine Blood Trace H 12/05/20 12/05/20 12/05/20 16:41 17:12 19:54 RBC Hgb Hct MCHC Plt Count PT INR Carbon Dioxide BUN Glucose POC Glucose (mg/dL) 241 H Hemoglobin A1c Plasma Lactic Acid Thanh 3.1 H* 2.1 H* Calcium Total Protein Albumin TSH Urine Protein Urine Glucose (UA) Urine Blood 12/05/20 12/06/20 12/06/20 20:09 05:55 06:34 RBC Hgb Hct MCHC Plt Count 142 L PT INR Carbon Dioxide BUN Glucose POC Glucose (mg/dL) 267 H 190 H Hemoglobin A1c Plasma Lactic Acid Thanh Calcium Total Protein Albumin TSH Urine Protein Urine Glucose (UA) Urine Blood 12/06/20 12/06/20 12/06/20 06:34 06:34 11:42 RBC Hgb Hct MCHC Plt Count PT 20.2 H INR 2.1 H Carbon Dioxide 32 H BUN Glucose 209 H POC Glucose (mg/dL) 237 H Hemoglobin A1c Plasma Lactic Acid Thanh Calcium Total Protein 5.6 L Albumin 2.8 L TSH Urine Protein Urine Glucose (UA) Urine Blood 12/06/20 12/06/20 12/07/20 16:36 20:17 06:24 RBC Hgb Hct MCHC Plt Count PT INR Carbon Dioxide BUN Glucose POC Glucose (mg/dL) 164 H 244 H 228 H Hemoglobin A1c Plasma Lactic Acid Thanh Calcium Total Protein Albumin TSH Urine Protein Urine Glucose (UA) Urine Blood 12/07/20 12/07/20 12/07/20 07:27 07:27 07:27 RBC Hgb Hct MCHC Plt Count 130 L PT 24.8 H INR 2.6 H Carbon Dioxide 34 H BUN 21 H Glucose 245 H POC Glucose (mg/dL) Hemoglobin A1c Plasma Lactic Acid Thanh Calcium 8.3 L Total Protein 5.6 L Albumin 2.7 L TSH Urine Protein Urine Glucose (UA) Urine Blood 12/07/20 12/07/20 12/07/20 11:48 16:23 20:27 RBC Hgb Hct MCHC Plt Count PT INR Carbon Dioxide BUN Glucose POC Glucose (mg/dL) 297 H 242 H 171 H Hemoglobin A1c Plasma Lactic Acid Thanh Calcium Total Protein Albumin TSH Urine Protein Urine Glucose (UA) Urine Blood 12/08/20 12/08/20 12/08/20 06:07 07:30 07:30 RBC 3.73 L Hgb 11.1 L Hct 33.8 L MCHC Plt Count 135 L PT 25.3 H INR 2.6 H Carbon Dioxide BUN Glucose POC Glucose (mg/dL) 182 H Hemoglobin A1c Plasma Lactic Acid Thanh Calcium Total Protein Albumin TSH Urine Protein Urine Glucose (UA) Urine Blood 12/08/20 12/08/20 12/08/20 07:30 11:46 16:42 RBC Hgb Hct MCHC Plt Count PT INR Carbon Dioxide 31 H BUN Glucose 199 H POC Glucose (mg/dL) 188 H 235 H Hemoglobin A1c Plasma Lactic Acid Thanh Calcium Total Protein Albumin TSH Urine Protein Urine Glucose (UA) Urine Blood 12/08/20 12/09/20 12/09/20 20:07 06:14 06:21 RBC Hgb Hct MCHC Plt Count PT 25.1 H INR 2.6 H Carbon Dioxide BUN Glucose POC Glucose (mg/dL) 226 H 230 H Hemoglobin A1c Plasma Lactic Acid Thanh Calcium Total Protein Albumin TSH Urine Protein Urine Glucose (UA) Urine Blood 12/09/20 12/09/20 12/09/20 11:45 16:43 20:00 RBC Hgb Hct MCHC Plt Count PT INR Carbon Dioxide BUN Glucose POC Glucose (mg/dL) 253 H 245 H 251 H Hemoglobin A1c Plasma Lactic Acid Thanh Calcium Total Protein Albumin TSH Urine Protein Urine Glucose (UA) Urine Blood - Diagnostic Findings Chest x-ray: report reviewed, image reviewed CT scan - chest: report reviewed, image reviewed Assessment and Plan Assessment: Likely aspiration pneumonia Left heel ulcer wound with secondary cellulitis Atypical chest pain GERD Hypertension hypertensive cardiovascular disease Dyslipidemia Plan: Continue antibiotics Agree with IV steroids however can slowly taper and DC over next several days Supplemental oxygen as needed Aspiration precaution Agree with evaluation of GERD with endoscopy as outpatient Further recommendations pending plan of care as per clinical response of the patient Time with Patient: Greater than 30
[2020-12-10 06:25] LABS: Glucose,Whole Blood 342 mg/dL (75-99)
[2020-12-10] MEDS: INSULIN ASPART (NovoLOG) 100 UNIT/ML VIAL SQ SCH ×4 (06:31→21:15)
[2020-12-10] MEDS: AMPICILLIN-SULBACTAM 1.5 GM in SODIUM CHLORIDE 0.9% 50 ML IVPB SCH ×3 (06:31→17:18)
[2020-12-10 07:11] LABS: Basophils % (A) 0 %; Eosinophils % (A) 0 %; HCT 34.2 % (34.0-46.0); HGB 12.1 gm/dL (11.4-16.0); Lymphocytes # (A) 0.6 k/uL (1.0-4.8); Lymphocytes % (A) 9 %; MCH 31.9 pg (25.0-35.0); MCHC 35.4 g/dL (31.0-37.0); MCV 90.2 fL (80.0-100.0); Mean Platelet Volume 8.9; Monocytes # (A) 0.1 k/uL (0-1.0); Monocytes % (A) 1 %; Neutrophils # (A) 5.8 k/uL (1.3-7.7); Neutrophils % (A) 89 %; Platelet Count 141 k/uL (150-450); RBC 3.79 m/uL (3.80-5.40); RDW 12.9 % (11.5-15.5); WBC 6.5 k/uL (3.8-10.6)
[2020-12-10 07:19] LABS: INR 2.1 (<1.2); Prothrombin Time 20.1 sec (9.0-12.0)
[2020-12-10 07:27] LABS: ALT 20 U/L (4-34); AST 33 U/L (14-36); African American GFR (CKD) >90 (>60 ml/min/1.73 sqM); Albumin 3.1 g/dL (3.5-5.0); Alkaline Phosphatase 98 U/L (38-126); Anion Gap 6 mmol/L; Blood Urea Nitrogen 21 mg/dL (7-17); Calcium 8.9 mg/dL (8.4-10.2); Carbon Dioxide 27 mmol/L (22-30); Chloride 104 mmol/L (98-107); Glucose 342 mg/dL (74-99); Non-African American GFR(CKD) 87 (>60 ml/min/1.73 sqM); Potassium 4.5 mmol/L (3.5-5.1); Sodium 137 mmol/L (137-145); Total Bilirubin 0.4 mg/dL (0.2-1.3); Total Protein 5.9 g/dL (6.3-8.2)
--- NOTE | 2020-12-10 10:23 | FL ---
EXAMINATION TYPE: FL barium swallow DATE OF EXAM: 12/10/2020 CLINICAL INDICATION: 75-year-old female dysphasia, complains of food not going down, worsening over 8 months. COMPARISON: Correlation CT chest 12/06/2020 Total Fluoroscopy Time: 1 minute 49 seconds Total images: 32 FINDINGS: The patient had limited mobility due to pain in the right lower extremity. An AP view of the cervical esophagus shows no contour deforming lesion. Lateral view of the cervical esophagus was not obtained . Imaging had to be performed semiupright with the table tilted. The thoracic portion demonstrates severe tertiary peristaltic waves with delayed clearance of contras t from the esophagus. Air contrast was administered to exclude any areas of fixed narrowing. No evide nce of fixed narrowing or mucosal lesion is identified. The proximal third thoracic esophagus is mild ly patulous and there is relative decreased caliber size of the distal third thoracic esophagus but a gain, no discrete fixed narrowing identified. Episodes of intraesophageal reflux are encountered. IMPRESSION: Findings suggest marked presbyesophagus or esophageal spasm. No definite areas of stricture or suspic ious filling defects are encountered. Limited semiupright assessment.
[2020-12-10] MEDS: ALPRAZolam 0.5 MG TAB PO SCH ×2 (10:26→21:15)
[2020-12-10] MEDS: METOPROLOL SUCCINATE (ER) 50 MG TAB.ER.24H PO SCH (10:26)
[2020-12-10] MEDS: methylPREDNISolone SOD SUCCI 40 MG/ML 1 ML VIAL IV SCH ×3 (10:27→22:59)
[2020-12-10] MEDS: LEVOTHYROXINE 75 MCG TAB PO SCH (10:27)
[2020-12-10] MEDS: SENNOSIDES-DOCUSATE SODIUM 1 EACH TAB PO SCH ×2 (10:27→21:15)
[2020-12-10] MEDS: PANTOPRAZOLE 40 MG TABLET PO SCH ×2 (10:27→17:19)
[2020-12-10] MEDS: ZINC SULFATE 220 MG CAP PO SCH (10:27)
[2020-12-10] MEDS: GABAPENTIN 400 MG CAP PO SCH ×4 (10:27→21:15)
[2020-12-10] MEDS: INSULIN DETEMIR (LEVEMIR) 100 UNIT/ML SYR SQ SCH (10:28)
[2020-12-10] MEDS: ESCITALOPRAM 10 MG TAB PO SCH (10:29)
[2020-12-10] MEDS: oxyCODONE-APAP 10-325MG 1 EACH TAB PO PRN ×3 (10:36→21:20)
[2020-12-10 11:46] LABS: Glucose,Whole Blood 300 mg/dL (75-99)
--- NOTE | 2020-12-10 13:43 | P.PN ---
Subjective Progress Note Date: 12/10/20 Principal diagnosis: Dysphagia A shunt seen and examined sitting up in the recliner. She underwent a upper GI series today with findings that suggest marked presbyesophagus or esophageal spasm. No definite areas of stricture or suspicious filling defects are encountered. Limited semi right assessment. She denies any abdominal pain, nausea or vomiting. She states that it feels like at times it is difficult to swallow food down, and then may get stuck. Objective - Vital Signs Vital signs: Vital Signs Temp 97.9 F 12/10/20 08:00 Pulse 104 H 12/10/20 08:00 Resp 16 12/10/20 08:00 BP 134/64 12/10/20 08:00 Pulse Ox 95 12/10/20 08:00 Intake & Output 12/09/20 12/10/20 12/10/20 18:59 06:59 18:59 Intake Total 480 1022 0 Output Total 200 Balance 480 822 0 Weight 92.9 kg Intake: Intake, IV Titration 800 Amount Sodium Chloride 0.9% 1, 800 000 ml @ 50 mls/hr IV . Q20H [facility] Rx#:[id number] Oral 480 222 0 Output: Urine 200 Other: # Voids 1 1 - Exam General appearance: The patient is alert, oriented, in no acute distress. HET: Head is normocephalic and atraumatic. Conjunctiva pink. Sclera anicteric. Neck: Supple without lymphadenopathy. Abdomen: Soft, nontender, nondistended with bowel sounds. No guarding or rigidity. Extremities: Normal skin color and turgor. No pedal edema Neurological: No focal deficits. Alert and oriented 3. - Labs CBC & Chem 7: 12/10/20 06:16 12/10/20 06:16 Labs: Abnormal Lab Results - Last 24 Hours (Table) 12/09/20 12/09/20 12/10/20 Range/Units 16:43 20:00 06:16 RBC (3.80-5.40) m/uL Plt Count (150-450) k/uL Lymphocytes # (1.0-4.8) k/uL PT 20.1 H (9.0-12.0) sec INR 2.1 H (<1.2) BUN (7-17) mg/dL Glucose (74-99) mg/dL POC Glucose (mg/dL) 245 H 251 H (75-99) mg/dL Total Protein (6.3-8.2) g/dL Albumin (3.5-5.0) g/dL 12/10/20 12/10/20 12/10/20 Range/Units 06:16 06:16 06:23 RBC 3.79 L (3.80-5.40) m/uL Plt Count 141 L (150-450) k/uL Lymphocytes # 0.6 L (1.0-4.8) k/uL PT (9.0-12.0) sec INR (<1.2) BUN 21 H (7-17) mg/dL Glucose 342 H (74-99) mg/dL POC Glucose (mg/dL) 342 H (75-99) mg/dL Total Protein 5.9 L (6.3-8.2) g/dL Albumin 3.1 L (3.5-5.0) g/dL 12/10/20 Range/Units 11:35 RBC (3.80-5.40) m/uL Plt Count (150-450) k/uL Lymphocytes # (1.0-4.8) k/uL PT (9.0-12.0) sec INR (<1.2) BUN (7-17) mg/dL Glucose (74-99) mg/dL POC Glucose (mg/dL) 300 H (75-99) mg/dL Total Protein (6.3-8.2) g/dL Albumin (3.5-5.0) g/dL Assessment and Plan (1) Dysphagia Current Visit: Yes Status: Acute Code(s): R13.10 - DYSPHAGIA, UNSPECIFIED SNOMED Code(s): 00850834 (2) GERD (gastroesophageal reflux disease) Current Visit: Yes Status: Acute Code(s): K21.9 - GASTRO-ESOPHAGEAL REFLUX DISEASE WITHOUT ESOPHAGITIS SNOMED Code(s): 115362415 Plan: 1. Barium swallow ordered and reviewed showing marked presbyesophagus or esophageal spasm with no definite area of stricture 2. Continue Protonix 40 mg twice daily 3. Soft or chopped diet 4. Patient may be discharged home and scheduled for outpatient upper endoscopy in 3-4 weeks. Thank you for this consultation we will sign off at this time Dr. Teixeira I agree with the dictator's note, documented as a scribe by Tara Winston.
[2020-12-10] MEDS: amLODIPine 2.5 MG TAB PO SCH (14:16)
--- NOTE | 2020-12-10 15:38 | P.PN ---
Subjective Progress Note Date: 12/10/20 Principal diagnosis: Likely aspiration pneumonia Left heel ulcer wound with secondary cellulitis Atypical chest pain GERD Hypertension hypertensive cardiovascular disease Dyslipidemia 12/10/2020, patient seen eval examined during the rounds labs reviewed medications reviewed, respiratory status remains stable, still complaining or dyspnea on exertion, PT is present ambulating the patient, patient remains on room air oxygen saturation is in mid 90s, status post swallow evaluation ration did well, oxygen saturation 99% room air, his is a 75-year-old morbidly obese female with the primary history of hypertension and hypertensive cardiovascular disease dyslipidemia also has a history of the chronic fibromyalgia wound infection, patient admitted into the hospital with left foot wound infection has been short of breath intermittent chest pain, cardiovascular services evaluated the patient thinking atypical chest pain, her computed tomography scan of his chest significant for consolidation subsegmental area and left upper lobe and also left lower lobe likely early pneumonia patient is appropriately being treated with IV Unasyn, Objective - Vital Signs Vital signs: Vital Signs Temp 97 F L 12/10/20 12:00 Pulse 109 H 12/10/20 12:00 Resp 16 12/10/20 12:00 BP 138/65 12/10/20 12:00 Pulse Ox 99 12/10/20 12:00 Intake & Output 12/09/20 12/10/20 12/10/20 18:59 06:59 18:59 Intake Total 480 1022 400 Output Total 200 Balance 480 822 400 Weight 92.9 kg Intake: Intake, IV Titration 800 400 Amount Ampicillin-Sulbactam 1.5 50 gm In Sodium Chloride 0.9 % 50 ml @ 100 mls/hr IVPB Q6HR [facility] Rx#:[id number] Sodium Chloride 0.9% 1, 800 350 000 ml @ 50 mls/hr IV . Q20H [facility] Rx#:[id number] Oral 480 222 0 Output: Urine 200 Other: # Voids 1 1 - Exam - Constitutional General appearance: average body habitus, cooperative, disheveled - EENT Eyes: PERRLA ENT: hearing grossly normal Ears: bilateral: normal - Neck Neck: normal ROM Carotids: bilateral: upstroke normal Thyroid: bilateral: normal size - Respiratory Respiratory: bilateral: CTA - Cardiovascular Rhythm: regular Heart sounds: normal: S1, S2 - Gastrointestinal General gastrointestinal: normal bowel sounds - Integumentary Integumentary: normal turgor - Neurologic Neurologic: CNII-XII intact - Musculoskeletal Musculoskeletal: gait normal, generalized weakness, strength equal bilaterally - Psychiatric Psychiatric: A&O x's 3, appropriate affect, intact judgment & insight - Labs CBC & Chem 7: 12/10/20 06:16 12/10/20 06:16 Labs: Abnormal Lab Results - Last 24 Hours (Table) 12/09/20 12/09/20 12/10/20 Range/Units 16:43 20:00 06:16 RBC (3.80-5.40) m/uL Plt Count (150-450) k/uL Lymphocytes # (1.0-4.8) k/uL PT 20.1 H (9.0-12.0) sec INR 2.1 H (<1.2) BUN (7-17) mg/dL Glucose (74-99) mg/dL POC Glucose (mg/dL) 245 H 251 H (75-99) mg/dL Total Protein (6.3-8.2) g/dL Albumin (3.5-5.0) g/dL 12/10/20 12/10/20 12/10/20 Range/Units 06:16 06:16 06:23 RBC 3.79 L (3.80-5.40) m/uL Plt Count 141 L (150-450) k/uL Lymphocytes # 0.6 L (1.0-4.8) k/uL PT (9.0-12.0) sec INR (<1.2) BUN 21 H (7-17) mg/dL Glucose 342 H (74-99) mg/dL POC Glucose (mg/dL) 342 H (75-99) mg/dL Total Protein 5.9 L (6.3-8.2) g/dL Albumin 3.1 L (3.5-5.0) g/dL 12/10/20 Range/Units 11:35 RBC (3.80-5.40) m/uL Plt Count (150-450) k/uL Lymphocytes # (1.0-4.8) k/uL PT (9.0-12.0) sec INR (<1.2) BUN (7-17) mg/dL Glucose (74-99) mg/dL POC Glucose (mg/dL) 300 H (75-99) mg/dL Total Protein (6.3-8.2) g/dL Albumin (3.5-5.0) g/dL Assessment and Plan Assessment: Likely aspiration pneumonia Left heel ulcer wound with secondary cellulitis Atypical chest pain GERD Hypertension hypertensive cardiovascular disease Dyslipidemia Plan: Continue antibiotics Agree with IV steroids however can slowly taper and DC over next several days Supplemental oxygen as needed Aspiration precaution Agree with evaluation of GERD with endoscopy as outpatient Further recommendations pending plan of care as per clinical response of the patient Time with Patient: Greater than 30
[2020-12-10 17:02] LABS: Glucose,Whole Blood 439 mg/dL (75-99)
[2020-12-10] MEDS: SODIUM CHLORIDE 0.9% 1,000 ML IV SCH (17:19)
[2020-12-10] MEDS ORDERED: WARFARIN 2.5 MG TAB PO ONE (18:00)
[2020-12-10 20:04] LABS: Glucose,Whole Blood 355 mg/dL (75-99)
--- NOTE | 2020-12-10 22:03 | PN ---
PROGRESS NOTE [age]ed[id number]old white female whose barium swallow showed abnormalities with swallowing. She was recommended to take a chopped diet or soft diet due to marked presbyesophagus or esophageal spasm. Treated for pneumonia. Is going to be discharged home tomorrow on oral antibiotics. Continue with PT, OT, wound care for the foot. CARDIOVASCULAR: S1, S2. LUNGS: Clear. GI: Soft. HEMATOLOGY: Negative Homans. PSYCH: Fair mood and affect. ASSESSMENT: 1. Community-acquired pneumonia. 2. Left heel ulcer. 3. Presbyesophagus. 4. Dysphagia. 5. Chronic obstructive pulmonary disease. 6. Diastolic congestive heart failure. 7. Diabetes mellitus. Prognosis extremely guarded. Continue wound care to the heel. Switch to oral antibiotics. Possible discharge home tomorrow. Follow up in the wound clinic. MMODL / IJN: [id number] /
--- NOTE | 2020-12-10 22:13 | PN ---
PROGRESS NOTE DATE OF SERVICE: 12/10/2020 REASON FOR FOLLOWUP: Left heel wound and cellulitis. INTERVAL HISTORY: The patient is currently afebrile. The patient is breathing slightly comfortably. The patient denies having any chest pain or cough. No abdominal pain or diarrhea. PHYSICAL EXAMINATION: Blood pressure 130/69, pulse 104, temperature 97. She is 92% on room air. General description is an elderly female lying in bed in no distress. RESPIRATORY SYSTEM: Unlabored breathing. Clear to auscultation anteriorly. HEART: S1, S2. Regular rate and rhythm. ABDOMEN: Soft. No tenderness. Left heel is currently dressed. No obvious drainage on the dressing. LABS: Hemoglobin is 12.1, white count 6.5, BUN of 21, creatinine 0.65. DIAGNOSTIC IMPRESSION AND PLAN: Patient with a left heel wound and secondary cellulitis in this patient currently covered with Augmentin. Local wound care with Aquacel Silver dressing. Continue with supportive care. MMODL / IJN: [id number] /
[2020-12-11] MEDS: oxyCODONE-APAP 10-325MG 1 EACH TAB PO PRN ×2 (04:31→10:17)
[2020-12-11 06:12] LABS: Glucose,Whole Blood 289 mg/dL (75-99)
[2020-12-11] MEDS: LEVOTHYROXINE 75 MCG TAB PO SCH (06:23)
[2020-12-11] MEDS: PANTOPRAZOLE 40 MG TABLET PO SCH (06:23)
[2020-12-11] MEDS: INSULIN DETEMIR (LEVEMIR) 100 UNIT/ML SYR SQ SCH (06:24)
[2020-12-11] MEDS: INSULIN ASPART (NovoLOG) 100 UNIT/ML VIAL SQ SCH ×2 (06:24→12:29)
[2020-12-11 07:55] LABS: INR 1.9 (<1.2); Prothrombin Time 18.3 sec (9.0-12.0)
[2020-12-11] MEDS ORDERED: AMOXIC-POT CLAV 875-125MG 1 EACH TAB PO SCH (09:00)
[2020-12-11] MEDS: methylPREDNISolone SOD SUCCI 40 MG/ML 1 ML VIAL IV SCH (09:25)
[2020-12-11] MEDS: amLODIPine 2.5 MG TAB PO SCH (09:26)
[2020-12-11] MEDS: METOPROLOL SUCCINATE (ER) 50 MG TAB.ER.24H PO SCH (09:27)
[2020-12-11] MEDS: GABAPENTIN 400 MG CAP PO SCH ×2 (09:27→12:28)
[2020-12-11] MEDS: ESCITALOPRAM 10 MG TAB PO SCH (09:27)
[2020-12-11] MEDS: SENNOSIDES-DOCUSATE SODIUM 1 EACH TAB PO SCH (09:28)
[2020-12-11] MEDS: ZINC SULFATE 220 MG CAP PO SCH (09:28)
[2020-12-11 09:47] VITALS: RESP 20
[2020-12-11] MEDS: ALPRAZolam 0.5 MG TAB PO SCH (10:03)
[2020-12-11] MEDS ORDERED: ALPRAZolam 0.5 MG TAB PO PRN (10:03)
[2020-12-11 11:18] VITALS: BP 171/89; PULSE 91; TEMP 97.8
[2020-12-11 11:39] LABS: Glucose,Whole Blood 268 mg/dL (75-99)
--- NOTE | 2020-12-11 12:28 | P.PN ---
Subjective Progress Note Date: 12/11/20 Principal diagnosis: Likely aspiration pneumonia Left heel ulcer wound with secondary cellulitis Atypical chest pain GERD Hypertension hypertensive cardiovascular disease Dyslipidemia 12/11/2020, patient seen eval examined during the rounds shortness of breath on exertion is present otherwise no shortness of breath and cough is present, patient is remains on room air saturation is stable and in mid to high 90s, off of oxygen, agree with discharge planning follow-up as outpatient so further workup and evaluation can be performed as outpatient 12/10/2020, patient seen eval examined during the rounds labs reviewed medications reviewed, respiratory status remains stable, still complaining or dyspnea on exertion, PT is present ambulating the patient, patient remains on room air oxygen saturation is in mid 90s, status post swallow evaluation ration did well, oxygen saturation 99% room air, his is a 75-year-old morbidly obese female with the primary history of hyper tension and hypertensive cardiovascular disease dyslipidemia also has a history of the chronic fibromyalgia wound infection, patient admitted into the hospital with left foot wound infection has been short of breath intermittent chest pain, cardiovascular services evaluated the patient thinking atypical chest pain, her computed tomography scan of his chest significant for consolidation subsegmental area and left upper lobe and also left lower lobe likely early pneumonia patient is appropriately being treated with IV Unasyn, Objective - Vital Signs Vital signs: Vital Signs Temp 97.8 F 12/11/20 11:17 Pulse 91 12/11/20 11:17 Resp 20 12/11/20 11:17 BP 171/89 12/11/20 11:17 Pulse Ox 97 12/11/20 11:17 Intake & Output 12/10/20 12/11/20 12/11/20 18:59 06:59 18:59 Intake Total 880 150 390 Output Total 100 500 Balance 880 50 -110 Weight 93.1 kg Intake: Intake, IV Titration 400 150 Amount Ampicillin-Sulbactam 1.5 50 150 gm In Sodium Chloride 0.9 % 50 ml @ 100 mls/hr IVPB Q6HR TITO Rx#:[id number] Sodium Chloride 0.9% 1, 350 000 ml @ 50 mls/hr IV . Q20H TITO Rx#:[id number] Oral 480 390 Output: Urine 100 500 Other: Voiding Method Diaper # Voids 3 1 - Exam - Constitutional General appearance: average body habitus, cooperative, disheveled - EENT Eyes: PERRLA ENT: hearing grossly normal Ears: bilateral: normal - Neck Neck: normal ROM Carotids: bilateral: upstroke normal Thyroid: bilateral: normal size - Respiratory Respiratory: bilateral: CTA - Cardiovascular Rhythm: regular Heart sounds: normal: S1, S2 - Gastrointestinal General gastrointestinal: normal bowel sounds - Integumentary Integumentary: normal turgor - Neurologic Neurologic: CNII-XII intact - Musculoskeletal Musculoskeletal: gait normal, generalized weakness, strength equal bilaterally - Psychiatric Psychiatric: A&O x's 3, appropriate affect, intact judgment & insight - Labs CBC & Chem 7: 12/10/20 06:16 12/10/20 06:16 Labs: Abnormal Lab Results - Last 24 Hours (Table) 12/10/20 12/10/20 12/11/20 Range/Units 16:54 20:03 06:10 PT (9.0-12.0) sec INR (<1.2) POC Glucose (mg/dL) 439 H 355 H 289 H (75-99) mg/dL 12/11/20 12/11/20 Range/Units 06:49 11:37 PT 18.3 H (9.0-12.0) sec INR 1.9 H (<1.2) POC Glucose (mg/dL) 268 H (75-99) mg/dL Assessment and Plan Assessment: Likely aspiration pneumonia Left heel ulcer wound with secondary cellulitis Atypical chest pain GERD Hypertension hypertensive cardiovascular disease Dyslipidemia Plan: Continue antibiotics, and can be changed to oral with the time of discharge Agree with IV steroids can be changed to oral at the time of discharge Oxygen saturation is stable observe off of oxygen at room air Aspiration precaution Agree with evaluation of GERD with endoscopy as outpatient Further recommendations pending plan of care as per clinical response of the patient Time with Patient: Greater than 30
[2020-12-11] MEDS ORDERED: WARFARIN 2.5 MG TAB PO ONE (18:00)
[2020-12-12] MEDS ORDERED: NON FORMULARY DRUG (Dulaglutide [Trulicity] 1.5 MG/0.5 ML Pen.Injctr) SQ SCH (09:00)
== END 2020-12-11 13:05 | disposition home or self-care (01) | DRG 602 ==
LOC: 3SCARD 12:54
PROVIDERS: ADMIT Family Medicine; ATTEND Family Medicine
DX: L03.116 Cellulitis of left lower limb (principal); J69.0 Pneumonitis due to inhalation of food and vomit; D68.0 Von Willebrand disease; E87.2 Acidosis; D68.51 Activated protein C resistance; L97.421 Non-pressure chronic ulcer of left heel and midfoot limited to breakdown of skin; I50.32 Chronic diastolic (congestive) heart failure; E11.42 Type 2 diabetes mellitus with diabetic polyneuropathy; E11.43 Type 2 diabetes mellitus with diabetic autonomic (poly)neuropathy; E11.51 Type 2 diabetes mellitus with diabetic peripheral angiopathy without gangrene; I11.0 Hypertensive heart disease with heart failure; I69.334 Monoplegia of upper limb following cerebral infarction affecting left non-dominant side; E66.01 Morbid (severe) obesity due to excess calories; J44.9 Chronic obstructive pulmonary disease, unspecified; Z79.4 Long term (current) use of insulin; K31.84 Gastroparesis; Z66 Do not resuscitate; Z20.822 Contact with and (suspected) exposure to COVID-19; R07.89 Other chest pain; Z68.35 Body mass index [BMI] 35.0-35.9, adult; R47.02 Dysphasia; K22.8 Other specified diseases of esophagus; G89.29 Other chronic pain; M54.9 Dorsalgia, unspecified; F41.9 Anxiety disorder, unspecified; F32.9 Major depressive disorder, single episode, unspecified; M79.7 Fibromyalgia; R13.10 Dysphagia, unspecified; K21.9 Gastro-esophageal reflux disease without esophagitis; E78.5 Hyperlipidemia, unspecified; E89.0 Postprocedural hypothyroidism; M21.371 Foot drop, right foot; M21.372 Foot drop, left foot; R32 Unspecified urinary incontinence; R09.02 Hypoxemia; M48.56XS Collapsed vertebra, not elsewhere classified, lumbar region, sequela of fracture; R29.6 Repeated falls; M19.90 Unspecified osteoarthritis, unspecified site; Z79.01 Long term (current) use of anticoagulants; Z79.890 Hormone replacement therapy; Z79.899 Other long term (current) drug therapy; Z86.19 Personal history of other infectious and parasitic diseases; Z86.14 Personal history of Methicillin resistant Staphylococcus aureus infection; Z90.89 Acquired absence of other organs; Z85.850 Personal history of malignant neoplasm of thyroid; Z90.49 Acquired absence of other specified parts of digestive tract; Z90.710 Acquired absence of both cervix and uterus; Z87.19 Personal history of other diseases of the digestive system; Z87.442 Personal history of urinary calculi; Z96.651 Presence of right artificial knee joint; Z91.81 History of falling; Z87.42 Personal history of other diseases of the female genital tract; Z87.81 Personal history of (healed) traumatic fracture; Z87.39 Personal history of other diseases of the musculoskeletal system and connective tissue; Z86.718 Personal history of other venous thrombosis and embolism; Z86.010 Personal history of colon polyps; Z98.42 Cataract extraction status, left eye; Z98.41 Cataract extraction status, right eye; Z87.448 Personal history of other diseases of urinary system; Z98.890 Other specified postprocedural states; Z88.8 Allergy status to other drugs, medicaments and biological substances; Z91.048 Other nonmedicinal substance allergy status; Z81.8 Family history of other mental and behavioral disorders; Z82.61 Family history of arthritis; Z84.1 Family history of disorders of kidney and ureter
CPT/HCPCS: 71046; 71250; 74220; 78452; 80048; 80053; 81001; 83036; 83605; 83880; 84439; 84443; 84484; 85025; 85027; 85379; 85610; 87635; 93017; 93306; 94640

== ENCOUNTER → 2020-12-25 | Outpatient (CLI) | payer MEDICARE ==
--- NOTE | 2020-12-25 10:01 | US ---
EXAMINATION TYPE: US venous doppler duplex LOWER EXTREMITY VENOUS INSUFFICIENCY CLINICAL HISTORY: E11.621 TYPE II DIABETES. Wound left heel for 3 weeks, patient on blood thinner SIDE PERFORMED: left Comparison: Bilateral lower extremity venous ultrasound March 03, 2016 1) Color flow is present and patency is documented in the following vessels. No DVT or SVT is noted . Common Femoral Vein Deep Femoral Vein Femoral Vein Popliteal Vein Proximal Calf Veins Greater Saph Vein Upper Small Saph Vein 2) There is venous reflux noted at the following venous levels: no reflux noted at this time IMPRESSION: No ultrasound evidence for acute deep or superficial venous thrombosis. No reflux noted during real-time scanning.
--- NOTE | 2020-12-26 10:49 | P.ARTDOP ---
Arterial Doppler LOWER EXTREMITY ARTERIAL DOPPLER: DATE OF SERVICE: 12/25/2020 Reason for study: Diabetic ulcer right heel. Doppler waveforms: Multiphasic bilaterally throughout. Pulse volume recording: []. Pressure gradients: Cannot be occluded at either ankle and therefore cannot measure Ankle-brachial indices: Cannot be occluded. Toe brachial indices: 0.64 on the right, 0.32 on the left Impression: suspect mild distal disease. Mild diabetic pattern
== END | disposition home or self-care (01) ==
LOC: RADUSWWP 08:31
PROVIDERS: ATTEND Family Medicine
DX: E11.621 Type 2 diabetes mellitus with foot ulcer (principal)
CPT/HCPCS: 93922; 93923

== ENCOUNTER 2023-09-14 20:38 | Inpatient (IN) | payer MEDICARE ==
[2023-09-14 20:47] LABS: Glucose,Whole Blood 178 mg/dL (70-110)
[2023-09-14 21:29] LABS: Basophils % (A) 0 %; Eosinophils # (A) 0.2 k/uL (0-0.7); Eosinophils % (A) 2 %; HCT 28.9 % (34.0-46.0); HGB 9.3 gm/dL (11.4-16.0); Lymphocytes # (A) 1.6 k/uL (1.0-4.8); Lymphocytes % (A) 11 %; MCH 29.8 pg (25.0-35.0); MCHC 32.2 g/dL (31.0-37.0); MCV 92.5 fL (80.0-100.0); Monocytes # (A) 0.8 k/uL (0-1.0); Monocytes % (A) 5 %; Neutrophils % (A) 81 %; Platelet Count 291 k/uL (150-450); RBC 3.12 m/uL (3.80-5.40); WBC 14.9 k/uL (3.8-10.6)
--- NOTE | 2023-09-14 21:48 | ED ---
Recheck HPI - General Chief Complaint: Recheck/Abnormal Lab/Rx Stated Complaint: Weakness UTI Time Seen by Provider: 09/14/23 20:44 Source: EMS, RN notes reviewed, old records reviewed Mode of arrival: EMS Limitations: no limitations - History of Present Illness Initial Comments: This is a 78-year-old female to the emergency family today for evaluation. Patient's brought in by EMS for evaluation of low blood sugar. Patient feels significantly weak, family did state that patient was concern for urinary tract infection. Patient himself has complaints of weakness and found to be altered mentally. Not acting appropriately per family. Patient does have history of prior urinary tract infection. MD Complaint: abnormal lab -: minutes(s) Returns Today for: Called Because of Abnormal Lab/Test Symptoms Since Prior Visit: no new symptoms Context: called for abnormal lab result Associated Symptoms: none Treatments Prior to Arrival: other (0) - Related Data Home Medications Medication Instructions Recorded Confirmed oxyCODONE-APAP 10-325MG [Percocet 1 tab PO QID 10/25/15 09/15/23 10-325 mg] ALPRAZolam [Xanax] 0.5 mg PO BID PRN 08/27/17 09/15/23 Levothyroxine Sodium 150 mcg PO DAILY 10/01/19 09/15/23 Ascorbic Acid [Vitamin C] 500 mg PO DAILY 09/15/23 09/15/23 Atorvastatin [Lipitor] 10 mg PO HS 09/15/23 09/15/23 Budesonide [Pulmicort] 0.5 mg INHALATION RT-BID 09/15/23 09/15/23 Cholecalciferol [Vitamin D3 (25 50 mcg PO DAILY 09/15/23 09/15/23 Mcg = 1000 Iu)] Fluticasone Propion/Salmeterol 1 puff INHALATION RT-BID 09/15/23 09/15/23 [Wixela 500-50 Inhub] Furosemide [Lasix] 20 mg PO AC-SUPPER 09/15/23 09/15/23 Furosemide [Lasix] 40 mg PO DAILY 09/15/23 09/15/23 Gabapentin [Neurontin] 800 mg PO TID 09/15/23 09/15/23 INSULIN LISPRO (HumaLOG) [humaLOG] 15 units SQ AC-TID 09/15/23 09/15/23 INSULIN LISPRO (HumaLOG) [humaLOG] See Protocol SQ ACHS 09/15/23 09/15/23 Insulin Glargine,Hum.rec.anlog 40 units SQ HS 09/15/23 09/15/23 [Lantus Solostar Pen] Ipratropium-Albuterol Nebulize 3 ml INHALATION RT-QID 09/15/23 09/15/23 [Duoneb 0.5 mg-3 mg/3 ml Soln] Lactobacillus Acidophilus 1 cap PO BID 09/15/23 09/15/23 [Acidophilus Probiotic] Metoclopramide HCl [Reglan] 5 mg PO QID 09/15/23 09/15/23 Nortriptyline [Pamelor] 25 mg PO HS 09/15/23 09/15/23 Omeprazole [PriLOSEC] 40 mg PO BID 09/15/23 09/15/23 Sennosides [Senokot] 17.2 mg PO DAILY PRN 09/15/23 09/15/23 Tirzepatide [Mounjaro] 2.5 mg SQ WE 09/15/23 09/15/23 dilTIAZem HCL 60 mg PO QID 09/15/23 09/15/23 metFORMIN HCL [Glucophage] 500 mg PO BID 09/15/23 09/15/23 methocarbamoL 500 mg PO TID PRN 09/15/23 09/15/23 polyethylene glycoL 3350 [Miralax] 17 gm PO DAILY 09/15/23 09/15/23 predniSONE [Deltasone] 20 mg PO DAILY 09/15/23 09/15/23 Previous Rx's Medication Instructions Recorded Warfarin [Coumadin] 2.5 mg PO HS #0 11/28/19 Metoprolol Succinate (ER) [Toprol 50 mg PO DAILY 90 Days #90 12/10/20 XL] tab.er.24h Allergies Allergy/AdvReac Type Severity Reaction Status Date / Time nickel [Nickel] Allergy Rash/Hives Verified 09/15/23 10:40 adhesive tape AdvReac blister Verified 09/15/23 10:40 duloxetine HCl AdvReac Hallucinati Verified 09/15/23 10:40 [From Cymbalta] ons sertraline HCl [From Zoloft] AdvReac Hallucinati Verified 09/15/23 10:40 ons vortioxetine hydrobromide AdvReac Hallucinati Verified 09/15/23 10:40 [From Brintellix] ons Review of Systems ROS Statement: Those systems with pertinent positive or pertinent negative responses have been documented in the HPI. ROS Other: All systems not noted in ROS Statement are negative. Past Medical History Past Medical History: Blood Disorder, Cancer, CVA/TIA, Diabetes Mellitus, Fibromyalgia, GERD/Reflux, Hyperlipidemia, Osteoarthritis (OA), Renal Disease, Syncope, Thyroid Disorder, Vascular Disorder Additional Past Medical History / Comment(s): with L5 compression fracture and L3 indetermined age compression fracture, bilateral lower extremity weakness, bilateral foot drop. 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 History of Any Multi-Drug Resistant Organisms: MRSA, VRE, VRE Date of last positivie culture/infection: 2008 R knee per pt MDRO Source:: 03/03/16 L foot Past Surgical History: Adenoidectomy, Appendectomy, Bowel Resection, Cholecystectomy, Hysterectomy, Joint Replacement, Orthopedic Surgery, Tonsillectomy Additional Past Surgical History / Comment(s): 10/26/15 suspension microlarygoscopy with benign bx, thyroidectomy, right TKA with infection-I&D then a revision, left ankle surgery WITH HARDWARE, 2 BOWEL SURGERIES, ORIF rt hip-07/2015, bilateral carpal tunnel releases, 1997 cardiac cath-normal, bilateral heel debridements, COLONOSCOPY, R flank "blood tumor" removed, bilateral cataract removals Past Anesthesia/Blood Transfusion Reactions: Postoperative Nausea & Vomiting (PONV) Additional Past Anesthesia/Blood Transfusion Reaction / Comment(s): Pt received blood after ORIF of the hip surgery Past Psychological History: Anxiety, Depression Smoking Status: Never smoker Past Alcohol Use History: None Reported Past Drug Use History: None Reported - Past Family History Father Family Medical History: Dementia Additional Family Medical History / Comment(s): Father of dementia at the age of 91 yrs. Mother Family Medical History: Osteoarthritis (OA), Renal Disease Additional Family Medical History / Comment(s): Mother after kidney stone surgery and went to assisted. She was 90 yrs. old. General Exam General appearance: alert, in no apparent distress Head exam: Present: atraumatic, normocephalic, normal inspection Eye exam: Present: normal appearance, PERRL, EOMI. Absent: scleral icterus, conjunctival injection, periorbital swelling ENT exam: Present: normal exam, mucous membranes moist Neck exam: Present: normal inspection. Absent: tenderness, meningismus, lympha denopathy Respiratory exam: Present: normal lung sounds bilaterally. Absent: respiratory distress, wheezes, rales, rhonchi, stridor Cardiovascular Exam: Present: regular rate, normal rhythm, normal heart sounds. Absent: systolic murmur, diastolic murmur, rubs, gallop, clicks GI/Abdominal exam: Present: soft, normal bowel sounds. Absent: distended, tenderness, guarding, rebound, rigid Extremities exam: Present: normal inspection, full ROM, normal capillary refill. Absent: tenderness, pedal edema, joint swelling, calf tenderness Back exam: Present: normal inspection Neurological exam: Present: alert, oriented X3, CN II-XII intact Psychiatric exam: Present: normal affect, normal mood Skin exam: Present: warm, dry, intact, normal color. Absent: rash Course Vital Signs 09/14/23 09/14/23 09/14/23 20:45 20:49 21:49 Temperature 98.0 F Pulse Rate 85 85 90 Respiratory 18 18 18 Rate Blood Pressure 120/61 118/67 104/94 O2 Sat by Pulse 97 96 96 Oximetry 09/14/23 09/15/23 09/15/23 23:49 02:00 06:05 Temperature Pulse Rate 87 94 104 H Respiratory 18 18 18 Rate Blood Pressure 104/63 136/73 136/94 O2 Sat by Pulse 96 96 96 Oximetry 09/15/23 09/15/23 09/15/23 07:55 09:48 11:15 Temperature Pulse Rate 112 H 110 H 115 H Respiratory 18 18 18 Rate Blood Pressure 131/82 107/79 148/78 O2 Sat by Pulse 98 97 96 Oximetry 09/15/23 09/15/23 09/15/23 16:06 17:01 18:00 Temperature Pulse Rate 112 H 114 H 114 H Respiratory 18 16 16 Rate Blood Pressure 145/83 138/72 142/83 O2 Sat by Pulse 96 95 98 Oximetry 09/15/23 09/15/23 09/15/23 19:00 20:00 21:00 Temperature Pulse Rate 114 H 117 H 116 H Respiratory 14 16 17 Rate Blood Pressure 126/86 121/70 133/70 O2 Sat by Pulse 95 Oximetry - Reevaluation(s) Reevaluation #1: 09/15/23 00:20 Medical records reviewed Reevaluation #2: 09/15/23 00:20 Patient's blood sugar is improving and she is able to eat Reevaluation #3: 09/15/23 00:21 Patient informed results and questions answered Reevaluation #4: 09/15/23 00:21 Was pt. sent in by a medical professional or institution (, PA, KILN DRAWER, urgent care, hospital, or assisted...) When possible be specific @ -no Did you speak to anyone other than the patient for history (EMS, parent, family, police, friend...)? What history was obtained from this source @ -no Did you review nursing and triage notes (agree or disagree)? Why? @ -agree Are old charts reviewed (outside hosp., previous admission, EMS record, old EKG, old radiological studies, urgent care reports/EKG's, assisted records)? Report findings @ -yes Differential Diagnosis (chest pain, altered mental status, abdominal pain women, abdominal pain men, vaginal bleeding, weakness, fever, dyspnea, syncope, headache, dizziness, GI bleed, back pain, seizure, CVA, palpatations, mental health, musculoskeletal)? @ -prior EKG interpreted by me (3pts min.). @ -no X-rays interpreted by me (1pt min.). @ -yes CT interpreted by me (1pt min.). @ -no U/S interpreted by me (1pt. min.). @ -no What testing was considered but not performed or refused? (CT, X-rays, U/S, labs)? Why? @ -none What meds were considered but not given or refused? Why? @ -none Did you discuss the management of the patient with other professionals ( professionals i.e. , PA, KILN DRAWER, lab, RT, psych nurse, older adult social work specialist, [employer] rep, teacher, freedom of information officer, case checker)? Give summary @ -no Was smoking cessation discussed for >3mins.? @ -no Was critical care preformed (if so, how long)? @ -no Were there social determinants of health that impacted care today? How? (Homelessness, low income, unemployed, alcoholism, drug addiction, transportation, low edu. Level, literacy, decrease access to med. care, skilled nursing, rehab)? @ -none Was there de-escalation of care discussed even if they declined (Discuss DNR or withdrawal of care, Hospice)? DNR status @ -no What co-morbidities impacted this encounter? (DM, HTN, Smoking, COPD, CAD, Cancer, CVA, ARF, Chemo, Hep., AIDS, mental health diagnosis, sleep apnea, morbid obesity)? @ -none Was patient admitted / discharged? Hospital course, mention meds given and route, prescriptions, significant lab abnormalities, going to OR and other pertinent info. @ - 78 female to the emergency department has also been found to have for evaluation today. Patient will be admitted for possible UTI but hypoglycemia. Patient will be admitted for blood sugar monitoring Discharge Undiagnosed new problem with uncertain prognosis? @ -no Drug Therapy requiring intensive monitoring for toxicity (Heparin, Nitro, Insul in, Cardizem)? @ -no Were any procedures done? @ -no Diagnosis/symptom? @ -UTI with recurrent hypoglycemia Acute, or Chronic, or Acute on Chronic? @ -Acute Uncomplicated (without systemic symptoms) or Complicated (systemic symptoms)? @ -Complicated Side effects of treatment? @ -no Exacerbation, Progression, or Severe Exacerbation? @ -exacerbation Poses a threat to life or bodily function? How? (Chest pain, [place], [place], pneumonia, PE, COPD, DKA, ARF, appy, cholecystitis, CVA, Diverticulitis, Homicidal, Suicidal, threat to staff... and all critical care pts) @ -yes with low blood sugars Reevaluation #5: 09/15/23 00:21 Differential Weakness: Hypoglycemia, shock, sepsis, hyponatremia, anemia, infection, IN, ETOH, adverse medicine reaction, overdose, stroke, this is not meant to be an all-inclusive list. - Consultations Consultation #1: Spoke with Dr. Cortes who agrees to admit the patient Medical Decision Making - Medical Decision Making 78 female to the emergency department has also been found to have for evaluation today. Patient will be admitted for possible UTI but hypoglycemia. Patient will be admitted for blood sugar monitoring - Lab Data Result diagrams: 09/18/23 10:43 09/18/23 10:43 Lab Results 09/14/23 09/14/23 09/14/23 Range/Units 20:45 21:17 21:17 WBC 14.9 H (3.8-10.6) k/uL RBC 3.12 L (3.80-5.40) m/uL Hgb 9.3 L (11.4-16.0) gm/dL Hct 28.9 L (34.0-46.0) % MCV 92.5 (80.0-100.0) fL MCH 29.8 (25.0-35.0) pg MCHC 32.2 (31.0-37.0) g/dL RDW 15.0 (11.5-15.5) % Plt Count 291 (150-450) k/uL MPV 8.0 Immature Gran % (Auto) % Absolute Nucleated RBC % Neutrophils % 81 % Lymphocytes % 11 % Monocytes % 5 % Eosinophils % 2 % Basophils % 0 % Immature Gran # X 10*3/uL Neutrophils # 12.0 H (1.3-7.7) k/uL Lymphocytes # 1.6 (1.0-4.8) k/uL Monocytes # 0.8 (0-1.0) k/uL Eosinophils # 0.2 (0-0.7) k/uL Basophils # 0.0 (0-0.2) k/uL NRBC/100 WBC Diff (0.00-0.01) X 10*3/uL PT (10.0-12.5) sec INR (<1.2) Sodium 136 L (137-145) mmol/L Potassium 3.1 L (3.5-5.1) mmol/L Chloride 95 L (98-107) mmol/L Carbon Dioxide 37 H (22-30) mmol/L Anion Gap 4 mmol/L BUN 26 H (7-17) mg/dL Creatinine 0.55 (0.52-1.04) mg/dL Est GFR (CKD-EPI) (>=60) Est GFR (CKD-EPI)AfAm >90 (>60 ml/min/1.73 sqM) Est GFR (CKD-EPI)NonAf >90 (>60 ml/min/1.73 sqM) BUN/Creatinine Ratio (12.00-20.00) Ratio Glucose 181 H (74-99) mg/dL POC Glucose (mg/dL) 178 H (70-110) mg/dL POC Glu Bottle Selector ID Melita, Ashtyn Calcium 8.0 L (8.4-10.2) mg/dL Phosphorus (2.4-5.1) mg/dL Magnesium (1.5-2.4) mg/dL Total Bilirubin 0.4 (0.2-1.3) mg/dL AST 45 H (14-36) U/L ALT 40 H (4-34) U/L Alkaline Phosphatase 152 H (38-126) U/L Total Protein 5.2 L (6.3-8.2) g/dL Albumin 2.6 L (3.5-5.0) g/dL Globulin (1.6-3.3) d/dL Albumin/Globulin Ratio (1.60-3.17) Ratio Urine Color Urine Appearance (Clear) Urine pH (5.0-8.0) Ur Specific [place] (1.001-1.035) Urine Protein (Negative) Urine Glucose (UA) (Negative) Urine Ketones (Negative) Urine Blood (Negative) Urine Nitrite (Negative) Urine Bilirubin (Negative) Urine Urobilinogen (<2.0) mg/dL Ur Leukocyte Esterase (Negative) Urine RBC (0-5) /hpf Urine WBC (0-5) /hpf Urine WBC Clumps (None) /hpf Ur Squamous Epith Cells (0-4) /hpf Urine Bacteria (None) /hpf Hyaline Casts (0-2) /lpf Urine Mucus (None) /hpf Urine Yeast (Budding) (None) /hpf 09/14/23 09/14/23 09/15/23 Range/Units 22:01 23:44 15:08 WBC (3.8-10.6) k/uL RBC (3.80-5.40) m/uL Hgb (11.4-16.0) gm/dL Hct (34.0-46.0) % MCV (80.0-100.0) fL MCH (25.0-35.0) pg MCHC (31.0-37.0) g/dL RDW (11.5-15.5) % Plt Count (150-450) k/uL MPV Immature Gran % (Auto) % Absolute Nucleated RBC % Neutrophils % % Lymphocytes % % Monocytes % % Eosinophils % % Basophils % % Immature Gran # X 10*3/uL Neutrophils # (1.3-7.7) k/uL Lymphocytes # (1.0-4.8) k/uL Monocytes # (0-1.0) k/uL Eosinophils # (0-0.7) k/uL Basophils # (0-0.2) k/uL NRBC/100 WBC Diff (0.00-0.01) X 10*3/uL PT (10.0-12.5) sec INR (<1.2) Sodium (137-145) mmol/L Potassium (3.5-5.1) mmol/L Chloride (98-107) mmol/L Carbon Dioxide (22-30) mmol/L Anion Gap mmol/L BUN (7-17) mg/dL Creatinine (0.52-1.04) mg/dL Est GFR (CKD-EPI) (>=60) Est GFR (CKD-EPI)AfAm (>60 ml/min/1.73 sqM) Est GFR (CKD-EPI)NonAf (>60 ml/min/1.73 sqM) BUN/Creatinine Ratio (12.00-20.00) Ratio Glucose (74-99) mg/dL POC Glucose (mg/dL) 117 H 105 (70-110) mg/dL POC Glu Bottle Selector ID Melita, Danica Tony Calcium (8.4-10.2) mg/dL Phosphorus (2.4-5.1) mg/dL Magnesium (1.5-2.4) mg/dL Total Bilirubin (0.2-1.3) mg/dL AST (14-36) U/L ALT (4-34) U/L Alkaline Phosphatase (38-126) U/L Total Protein (6.3-8.2) g/dL Albumin (3.5-5.0) g/dL Globulin (1.6-3.3) d/dL Albumin/Globulin Ratio (1.60-3.17) Ratio Urine Color Yellow Urine Appearance Clear (Clear) Urine pH 5.0 (5.0-8.0) Ur Specific [place] 1.010 (1.001-1.035) Urine Protein Negative (Negative) Urine Glucose (UA) Negative (Negative) Urine Ketones Negative (Negative) Urine Blood Negative (Negative) Urine Nitrite Negative (Negative) Urine Bilirubin Negative (Negative) Urine Urobilinogen <2.0 (<2.0) mg/dL Ur Leukocyte Esterase Large (Negative) Urine RBC 1 (0-5) /hpf Urine WBC 58 H (0-5) /hpf Urine WBC Clumps Few H (None) /hpf Ur Squamous Epith Cells <1 (0-4) /hpf Urine Bacteria Many H (None) /hpf Hyaline Casts 14 H (0-2) /lpf Urine Mucus Rare H (None) /hpf Urine Yeast (Budding) Few H (None) /hpf 09/16/23 09/16/23 09/16/23 Range/Units 05:41 05:41 05:41 WBC 10.81 H (3.8-10.6) k/uL RBC 3.94 L (3.80-5.40) m/uL Hgb 11.7 L (11.4-16.0) gm/dL Hct 36.4 L (34.0-46.0) % MCV 92.4 (80.0-100.0) fL MCH 29.7 (25.0-35.0) pg MCHC 32.1 (31.0-37.0) g/dL RDW 15.6 H (11.5-15.5) % Plt Count 235 (150-450) k/uL MPV 10.6 Immature Gran % (Auto) 0.60 % Absolute Nucleated RBC 0 % Neutrophils % 83.5 % Lymphocytes % 9.0 % Monocytes % 5.8 % Eosinophils % 0.7 % Basophils % 0.4 % Immature Gran # 0.06 X 10*3/uL Neutrophils # 9.03 H (1.3-7.7) k/uL Lymphocytes # 0.97 (1.0-4.8) k/uL Monocytes # 0.63 (0-1.0) k/uL Eosinophils # 0.08 (0-0.7) k/uL Basophils # 0.04 (0-0.2) k/uL NRBC/100 WBC Diff 0 (0.00-0.01) X 10*3/uL PT 13.4 H (10.0-12.5) sec INR 1.3 H (<1.2) Sodium 137 (137-145) mmol/L Potassium 4.2 (3.5-5.1) mmol/L Chloride 95 L (98-107) mmol/L Carbon Dioxide 29.5 (22-30) mmol/L Anion Gap 12.50 H mmol/L BUN 17.5 (7-17) mg/dL Creatinine 0.5 L (0.52-1.04) mg/dL Est GFR (CKD-EPI) 96 (>=60) Est GFR (CKD-EPI)AfAm (>60 ml/min/1.73 sqM) Est GFR (CKD-EPI)NonAf (>60 ml/min/1.73 sqM) BUN/Creatinine Ratio 35.00 H (12.00-20.00) Ratio Glucose 257 H (74-99) mg/dL POC Glucose (mg/dL) (70-110) mg/dL POC Glu Bottle Selector ID Calcium 8.5 L (8.4-10.2) mg/dL Phosphorus 2.7 (2.4-5.1) mg/dL Magnesium 2.0 (1.5-2.4) mg/dL Total Bilirubin 0.5 (0.2-1.3) mg/dL AST 22 (14-36) U/L ALT 27 (4-34) U/L Alkaline Phosphatase 137 H (38-126) U/L Total Protein 5.0 L (6.3-8.2) g/dL Albumin 2.9 L (3.5-5.0) g/dL Globulin 2.1 (1.6-3.3) d/dL Albumin/Globulin Ratio 1.38 L (1.60-3.17) Ratio Urine Color Urine Appearance (Clear) Urine pH (5.0-8.0) Ur Specific [place] (1.001-1.035) Urine Protein (Negative) Urine Glucose (UA) (Negative) Urine Ketones (Negative) Urine Blood (Negative) Urine Nitrite (Negative) Urine Bilirubin (Negative) Urine Urobilinogen (<2.0) mg/dL Ur Leukocyte Esterase (Negative) Urine RBC (0-5) /hpf Urine WBC (0-5) /hpf Urine WBC Clumps (None) /hpf Ur Squamous Epith Cells (0-4) /hpf Urine Bacteria (None) /hpf Hyaline Casts (0-2) /lpf Urine Mucus (None) /hpf Urine Yeast (Budding) (None) /hpf 09/16/23 09/16/23 09/16/23 Range/Units 08:20 12:27 17:10 WBC (3.8-10.6) k/uL RBC (3.80-5.40) m/uL Hgb (11.4-16.0) gm/dL Hct (34.0-46.0) % MCV (80.0-100.0) fL MCH (25.0-35.0) pg MCHC (31.0-37.0) g/dL RDW (11.5-15.5) % Plt Count (150-450) k/uL MPV Immature Gran % (Auto) % Absolute Nucleated RBC % Neutrophils % % Lymphocytes % % Monocytes % % Eosinophils % % Basophils % % Immature Gran # X 10*3/uL Neutrophils # (1.3-7.7) k/uL Lymphocytes # (1.0-4.8) k/uL Monocytes # (0-1.0) k/uL Eosinophils # (0-0.7) k/uL Basophils # (0-0.2) k/uL NRBC/100 WBC Diff (0.00-0.01) X 10*3/uL PT (10.0-12.5) sec INR (<1.2) Sodium (137-145) mmol/L Potassium (3.5-5.1) mmol/L Chloride (98-107) mmol/L Carbon Dioxide (22-30) mmol/L Anion Gap mmol/L BUN (7-17) mg/dL Creatinine (0.52-1.04) mg/dL Est GFR (CKD-EPI) (>=60) Est GFR (CKD-EPI)AfAm (>60 ml/min/1.73 sqM) Est GFR (CKD-EPI)NonAf (>60 ml/min/1.73 sqM) BUN/Creatinine Ratio (12.00-20.00) Ratio Glucose (74-99) mg/dL POC Glucose (mg/dL) 254 H 373 H 456 H (70-110) mg/dL POC Glu Bottle Selector ID Gray, Jimmie Gray, Jimmie Gray, Jimmie Calcium (8.4-10.2) mg/dL Phosphorus (2.4-5.1) mg/dL Magnesium (1.5-2.4) mg/dL Total Bilirubin (0.2-1.3) mg/dL AST (14-36) U/L ALT (4-34) U/L Alkaline Phosphatase (38-126) U/L Total Protein (6.3-8.2) g/dL Albumin (3.5-5.0) g/dL Globulin (1.6-3.3) d/dL Albumin/Globulin Ratio (1.60-3.17) Ratio Urine Color Urine Appearance (Clear) Urine pH (5.0-8.0) Ur Specific [place] (1.001-1.035) Urine Protein (Negative) Urine Glucose (UA) (Negative) Urine Ketones (Negative) Urine Blood (Negative) Urine Nitrite (Negative) Urine Bilirubin (Negative) Urine Urobilinogen (<2.0) mg/dL Ur Leukocyte Esterase (Negative) Urine RBC (0-5) /hpf Urine WBC (0-5) /hpf Urine WBC Clumps (None) /hpf Ur Squamous Epith Cells (0-4) /hpf Urine Bacteria (None) /hpf Hyaline Casts (0-2) /lpf Urine Mucus (None) /hpf Urine Yeast (Budding) (None) /hpf 09/16/23 09/17/23 09/17/23 Range/Units 20:37 06:33 06:33 WBC 7.70 (3.8-10.6) k/uL RBC 3.81 L (3.80-5.40) m/uL Hgb 11.4 L (11.4-16.0) gm/dL Hct 35.8 L (34.0-46.0) % MCV 94.0 (80.0-100.0) fL MCH 29.9 (25.0-35.0) pg MCHC 31.8 L (31.0-37.0) g/dL RDW 16.0 H (11.5-15.5) % Plt Count 210 (150-450) k/uL MPV 10.1 Immature Gran % (Auto) 1.20 % Absolute Nucleated RBC 0 % Neutrophils % 64.3 % Lymphocytes % 23.5 % Monocytes % 8.7 % Eosinophils % 1.8 % Basophils % 0.5 % Immature Gran # 0.09 X 10*3/uL Neutrophils # 4.95 (1.3-7.7) k/uL Lymphocytes # 1.81 (1.0-4.8) k/uL Monocytes # 0.67 (0-1.0) k/uL Eosinophils # 0.14 (0-0.7) k/uL Basophils # 0.04 (0-0.2) k/uL NRBC/100 WBC Diff 0 (0.00-0.01) X 10*3/uL PT 10.6 (10.0-12.5) sec INR 1.0 (<1.2) Sodium (137-145) mmol/L Potassium (3.5-5.1) mmol/L Chloride (98-107) mmol/L Carbon Dioxide (22-30) mmol/L Anion Gap mmol/L BUN (7-17) mg/dL Creatinine (0.52-1.04) mg/dL Est GFR (CKD-EPI) (>=60) Est GFR (CKD-EPI)AfAm (>60 ml/min/1.73 sqM) Est GFR (CKD-EPI)NonAf (>60 ml/min/1.73 sqM) BUN/Creatinine Ratio (12.00-20.00) Ratio Glucose (74-99) mg/dL POC Glucose (mg/dL) 301 H (70-110) mg/dL POC Glu Bottle Selector ID Km Clive Calcium (8.4-10.2) mg/dL Phosphorus (2.4-5.1) mg/dL Magnesium (1.5-2.4) mg/dL Total Bilirubin (0.2-1.3) mg/dL AST (14-36) U/L ALT (4-34) U/L Alkaline Phosphatase (38-126) U/L Total Protein (6.3-8.2) g/dL Albumin (3.5-5.0) g/dL Globulin (1.6-3.3) d/dL Albumin/Globulin Ratio (1.60-3.17) Ratio Urine Color Urine Appearance (Clear) Urine pH (5.0-8.0) Ur Specific [place] (1.001-1.035) Urine Protein (Negative) Urine Glucose (UA) (Negative) Urine Ketones (Negative) Urine Blood (Negative) Urine Nitrite (Negative) Urine Bilirubin (Negative) Urine Urobilinogen (<2.0) mg/dL Ur Leukocyte Esterase (Negative) Urine RBC (0-5) /hpf Urine WBC (0-5) /hpf Urine WBC Clumps (None) /hpf Ur Squamous Epith Cells (0-4) /hpf Urine Bacteria (None) /hpf Hyaline Casts (0-2) /lpf Urine Mucus (None) /hpf Urine Yeast (Budding) (None) /hpf 09/17/23 09/17/23 Range/Units 06:33 08:43 WBC (3.8-10.6) k/uL RBC (3.80-5.40) m/uL Hgb (11.4-16.0) gm/dL Hct (34.0-46.0) % MCV (80.0-100.0) fL MCH (25.0-35.0) pg MCHC (31.0-37.0) g/dL RDW (11.5-15.5) % Plt Count (150-450) k/uL MPV Immature Gran % (Auto) % Absolute Nucleated RBC % Neutrophils % % Lymphocytes % % Monocytes % % Eosinophils % % Basophils % % Immature Gran # X 10*3/uL Neutrophils # (1.3-7.7) k/uL Lymphocytes # (1.0-4.8) k/uL Monocytes # (0-1.0) k/uL Eosinophils # (0-0.7) k/uL Basophils # (0-0.2) k/uL NRBC/100 WBC Diff (0.00-0.01) X 10*3/uL PT (10.0-12.5) sec INR (<1.2) Sodium 140 (137-145) mmol/L Potassium 3.4 L (3.5-5.1) mmol/L Chloride 98 (98-107) mmol/L Carbon Dioxide 29.8 (22-30) mmol/L Anion Gap 12.20 H mmol/L BUN 11.2 (7-17) mg/dL Creatinine 0.5 L (0.52-1.04) mg/dL Est GFR (CKD-EPI) 96 (>=60) Est GFR (CKD-EPI)AfAm (>60 ml/min/1.73 sqM) Est GFR (CKD-EPI)NonAf (>60 ml/min/1.73 sqM) BUN/Creatinine Ratio 22.40 H (12.00-20.00) Ratio Glucose 212 H (74-99) mg/dL POC Glucose (mg/dL) 296 H (70-110) mg/dL POC Glu Bottle [employer]or ID Jessica Mart Calcium 8.3 L (8.4-10.2) mg/dL Phosphorus (2.4-5.1) mg/dL Magnesium 1.8 (1.5-2.4) mg/dL Total Bilirubin (0.2-1.3) mg/dL AST (14-36) U/L ALT (4-34) U/L Alkaline Phosphatase (38-126) U/L Total Protein (6.3-8.2) g/dL Albumin (3.5-5.0) g/dL Globulin (1.6-3.3) d/dL Albumin/Globulin Ratio (1.60-3.17) Ratio Urine Color Urine Appearance (Clear) Urine pH (5.0-8.0) Ur Specific [place] (1.001-1.035) Urine Protein (Negative) Urine Glucose (UA) (Negative) Urine Ketones (Negative) Urine Blood (Negative) Urine Nitrite (Negative) Urine Bilirubin (Negative) Urine Urobilinogen (<2.0) mg/dL Ur Leukocyte Esterase (Negative) Urine RBC (0-5) /hpf Urine WBC (0-5) /hpf Urine WBC Clumps (None) /hpf Ur Squamous Epith Cells (0-4) /hpf Urine Bacteria (None) /hpf Hyaline Casts (0-2) /lpf Urine Mucus (None) /hpf Urine Yeast (Budding) (None) /hpf - Radiology Data Radiology results: report reviewed (Chest x-rays negative for acute disease), image reviewed Disposition Clinical Impression: Hypoglycemia, Altered mental status Disposition: HOME SELF-CARE Condition: Fair Is patient prescribed a controlled substance at d/c from ED?: No Time of Disposition: 00:00
[2023-09-14 21:59] LABS: ALT 40 U/L (4-34); AST 45 U/L (14-36); African American GFR (CKD) >90 (>60 ml/min/1.73 sqM); Albumin 2.6 g/dL (3.5-5.0); Alkaline Phosphatase 152 U/L (38-126); Anion Gap 4 mmol/L; Blood Urea Nitrogen 26 mg/dL (7-17); Carbon Dioxide 37 mmol/L (22-30); Chloride 95 mmol/L (98-107); Glucose 181 mg/dL (74-99); Non-African American GFR(CKD) >90 (>60 ml/min/1.73 sqM); Potassium 3.1 mmol/L (3.5-5.1); Sodium 136 mmol/L (137-145); Total Bilirubin 0.4 mg/dL (0.2-1.3); Total Protein 5.2 g/dL (6.3-8.2)
[2023-09-14 22:04] LABS: Glucose,Whole Blood 117 mg/dL (70-110)
[2023-09-14] MEDS ORDERED: POTASSIUM BICARBONATE/CIT AC 20 MEQ TABLET.EFF PO ONE (22:54)
--- NOTE | 2023-09-14 22:59 | XR ---
EXAM: XR Chest, 1 View CLINICAL HISTORY: ITS.REASON XR Reason: weak TECHNIQUE: Frontal view of the chest. COMPARISON: No relevant prior studies available. FINDINGS: Lungs: Unremarkable. No consolidation. Pleural space: Unremarkable. No pneumothorax. Heart: Unremarkable. No cardiomegaly. Mediastinum: Unremarkable. Bones/joints: Unremarkable. Upper abdomen: Cholecystectomy. IMPRESSION: No acute findings in the chest.
[2023-09-15] MEDS ORDERED: ONDANSETRON 4 MG/2 ML VIAL IVP PRN (00:18)
[2023-09-15] MEDS ORDERED: NALOXONE 0.4 MG/ML 1 ML VIAL IV PRN (00:18)
[2023-09-15] MEDS: MORPHINE SULFATE 4 MG/ML SYRINGE IV PRN ×5 (00:55→21:22)
[2023-09-15] MEDS: SODIUM CHLORIDE 0.9% 1,000 ML IV SCH ×2 (00:57→16:10)
[2023-09-15 01:07] LABS: Bacteria,Urine Many /hpf; Budding Yeast,Urine Few /hpf; Hyaline Casts,Urine 14 /lpf (0-2); Mucus,Urine Rare /hpf; RBC,Urine 1 /hpf (0-5); Squamous Epithelial Cell,Urine <1 /hpf (0-4); WBC,Urine 58 /hpf (0-5)
[2023-09-15 01:13] LABS: Color,Urine Yellow
[2023-09-15 01:14] LABS: Appearance,Urine Clear (Clear); Bilirubin,Urine Negative (Negative); Blood,Urine Negative (Negative); Glucose,Urine (UA) Negative (Negative); Ketones,Urine Negative (Negative); Protein,Urine Negative (Negative)
[2023-09-15 01:15] LABS: Leukocyte Esterase,Urine Large (Negative); Nitrite,Urine Negative (Negative); Urobilinogen,Urine <2.0 mg/dL (<2.0)
[2023-09-15 15:10] LABS: Glucose,Whole Blood 105 mg/dL (70-110)
--- NOTE | 2023-09-15 17:12 | P.HPIM ---
History of Present Illness H&P Date: 09/15/23 Chief Complaint: Generalized weakness and hypoglycemia Patient is a 78-year-old year female has progressive generalized weakness for last few days also has been hypoglycemic patient has frequent urinary tract infection brought into the hospital for further evaluation patient has prior history of chronic pain syndrome and generalized anxiety disorder and peripheral neuropathy, she also has hypothyroidism on Synthroid, mood disorder depression on Lexapro, has diabetes mellitus takes to obesity as well as sliding scale insulin, and labs are significant for white cell count of 14.9 hemoglobin remained 9.3/28 and platelet count of the 291 chemistry significant for hypokal emia of dictation 3.1 BUN and creatinine within normal limit urinalysis she RBC and WBC seen large leukocyte esterase patient got a dose of Rocephin and potassium in the ER Review of Systems All systems: negative Past Medical History Past Medical History: Blood Disorder, Cancer, CVA/TIA, Diabetes Mellitus, Fibromyalgia, GERD/Reflux, Hyperlipidemia, Osteoarthritis (OA), Renal Disease, Syncope, Thyroid Disorder, Vascular Disorder Additional Past Medical History / Comment(s): with L5 compression fracture and L3 indetermined age compression fracture, bilateral lower extremity weakness, bilateral foot drop. 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 History of Any Multi-Drug Resistant Organisms: MRSA, VRE, VRE Date of last positivie culture/infection: 2008 R knee per pt MDRO Source:: 03/03/16 L foot Past Surgical History: Adenoidectomy, Appendectomy, Bowel Resection, Cholecystectomy, Hysterectomy, Joint Replacement, Orthopedic Surgery, Tonsillectomy Additional Past Surgical History / Comment(s): 10/26/15 suspension microlarygo scopy with benign bx, thyroidectomy, right TKA with infection-I&D then a revision, left ankle surgery WITH HARDWARE, 2 BOWEL SURGERIES, ORIF rt hip- 07/2015, bilateral carpal tunnel releases, 1997 cardiac cath-normal, bilateral heel debridements, COLONOSCOPY, R flank "blood tumor" removed, bilateral cataract removals Past Anesthesia/Blood Transfusion Reactions: Postoperative Nausea & Vomiting (PONV) Additional Past Anesthesia/Blood Transfusion Reaction / Comment(s): Pt received blood after ORIF of the hip surgery Past Psychological History: Anxiety, Depression Smoking Status: Never smoker Past Alcohol Use History: None Reported Past Drug Use History: None Reported - Past Family History Father Family Medical History: Dementia Additional Family Medical History / Comment(s): Father of dementia at the age of 91 yrs. Mother Family Medical History: Osteoarthritis (OA), Renal Disease Additional Family Medical History / Comment(s): Mother after kidney stone surgery and went to snf. She was 90 yrs. old. Medications and Allergies Home Medications Medication Instructions Recorded Confirmed Type oxyCODONE-APAP 10-325MG [Percocet 1 tab PO QID 10/25/15 09/15/23 History 10-325 mg] ALPRAZolam [Xanax] 0.5 mg PO BID PRN 08/27/17 09/15/23 History Levothyroxine Sodium 150 mcg PO DAILY 10/01/19 09/15/23 History Warfarin [Coumadin] 2.5 mg PO HS #0 11/28/19 09/15/23 Rx Metoprolol Succinate (ER) [Toprol 50 mg PO DAILY 90 Days #90 12/10/20 09/15/23 Rx XL] tab.er.24h Ascorbic Acid [Vitamin C] 500 mg PO DAILY 09/15/23 09/15/23 History Atorvastatin [Lipitor] 10 mg PO HS 09/15/23 09/15/23 History Budesonide [Pulmicort] 0.5 mg INHALATION RT-BID 09/15/23 09/15/23 History Cholecalciferol [Vitamin D3 (25 50 mcg PO DAILY 09/15/23 09/15/23 History Mcg = 1000 Iu)] Fluticasone Propion/Salmeterol 1 puff INHALATION RT-BID 09/15/23 09/15/23 History [Wixela 500-50 Inhub] Furosemide [Lasix] 20 mg PO AC-SUPPER 09/15/23 09/15/23 History Furosemide [Lasix] 40 mg PO DAILY 09/15/23 09/15/23 History Gabapentin [Neurontin] 800 mg PO TID 09/15/23 09/15/23 History INSULIN LISPRO (HumaLOG) [humaLOG] 15 units SQ AC-TID 09/15/23 09/15/23 History INSULIN LISPRO (HumaLOG) [humaLOG] See Protocol SQ ACHS 09/15/23 09/15/23 History Insulin Glargine,Hum.rec.anlog 40 units SQ HS 09/15/23 09/15/23 History [Lantus Solostar Pen] Ipratropium-Albuterol Nebulize 3 ml INHALATION RT-QID 09/15/23 09/15/23 History [Duoneb 0.5 mg-3 mg/3 ml Soln] Lactobacillus Acidophilus 1 cap PO BID 09/15/23 09/15/23 History [Acidophilus Probiotic] Metoclopramide HCl [Reglan] 5 mg PO QID 09/15/23 09/15/23 History Nortriptyline [Pamelor] 25 mg PO HS 09/15/23 09/15/23 History Omeprazole [PriLOSEC] 40 mg PO BID 09/15/23 09/15/23 History Sennosides [Senokot] 17.2 mg PO DAILY PRN 09/15/23 09/15/23 History Tirzepatide [Mounjaro] 2.5 mg SQ WE 09/15/23 09/15/23 History dilTIAZem HCL 60 mg PO QID 09/15/23 09/15/23 History metFORMIN HCL [Glucophage] 500 mg PO BID 09/15/23 09/15/23 History methocarbamoL 500 mg PO TID PRN 09/15/23 09/15/23 History polyethylene glycoL 3350 [Miralax] 17 gm PO DAILY 09/15/23 09/15/23 History predniSONE [Deltasone] 20 mg PO DAILY 09/15/23 09/15/23 History Allergies Allergy/AdvReac Type Severity Reaction Status Date / Time nickel [Nickel] Allergy Rash/Hives Verified 09/15/23 10:40 adhesive tape AdvReac blister Verified 09/15/23 10:40 duloxetine HCl AdvReac Hallucinati Verified 09/15/23 10:40 [From Cymbalta] ons sertraline HCl [From Zoloft] AdvReac Hallucinati Verified 09/15/23 10:40 ons vortioxetine hydrobromide AdvReac Hallucinati Verified 09/15/23 10:40 [From Brintellix] ons Physical Exam Vitals: Vital Signs Temp Pulse Resp BP Pulse Ox 09/15/23 17:01 114 H 16 138/72 95 09/15/23 16:06 112 H 18 145/83 96 09/15/23 11:15 115 H 18 148/78 96 09/15/23 09:48 110 H 18 107/79 97 09/15/23 07:55 112 H 18 131/82 98 09/15/23 06:05 104 H 18 136/94 96 09/15/23 02:00 94 18 136/73 96 09/14/23 23:49 87 18 104/63 96 09/14/23 21:49 90 18 104/94 96 09/14/23 20:49 85 18 118/67 96 09/14/23 20:45 98.0 F 85 18 120/61 97 Intake and Output 09/15/23 09/15/23 09/15/23 06:59 14:59 22:59 Output Total 200 Balance -200 Output: Urine 200 Uretheral (Sheehan) 200 - Constitutional General appearance: average body habitus, disheveled - EENT Eyes: EOMI, PERRLA ENT: normal oropharynx Ears: bilateral: normal - Neck Neck: normal ROM Carotids: bilateral: upstroke normal Thyroid: bilateral: normal size - Respiratory Respiratory: bilateral: CTA - Cardiovascular Rhythm: regular Heart sounds: normal: S1, S2 - Gastrointestinal General gastrointestinal: normal bowel sounds, soft - Integumentary Integumentary: normal turgor - Neurologic Neurologic: CNII-XII intact - Musculoskeletal Musculoskeletal: gait normal, generalized weakness, strength equal bilaterally - Psychiatric Psychiatric: A&O x's 3, appropriate affect, intact judgment & insight Results CBC & Chem 7: 09/14/23 21:17 09/14/23 21:17 Labs: Abnormal Lab Results - Last 24 Hours (Table) 09/14/23 09/14/23 09/14/23 Range/Units 20:45 21:17 21:17 WBC 14.9 H (3.8-10.6) k/uL RBC 3.12 L (3.80-5.40) m/uL Hgb 9.3 L (11.4-16.0) gm/dL Hct 28.9 L (34.0-46.0) % Neutrophils # 12.0 H (1.3-7.7) k/uL Sodium 136 L (137-145) mmol/L Potassium 3.1 L (3.5-5.1) mmol/L Chloride 95 L (98-107) mmol/L Carbon Dioxide 37 H (22-30) mmol/L BUN 26 H (7-17) mg/dL Glucose 181 H (74-99) mg/dL POC Glucose (mg/dL) 178 H (70-110) mg/dL Calcium 8.0 L (8.4-10.2) mg/dL AST 45 H (14-36) U/L ALT 40 H (4-34) U/L Alkaline Phosphatase 152 H (38-126) U/L Total Protein 5.2 L (6.3-8.2) g/dL Albumin 2.6 L (3.5-5.0) g/dL Urine WBC (0-5) /hpf Urine WBC Clumps (None) /hpf Urine Bacteria (None) /hpf Hyaline Casts (0-2) /lpf Urine Mucus (None) /hpf Urine Yeast (Budding) (None) /hpf 09/14/23 09/14/23 Range/Units 22:01 23:44 WBC (3.8-10.6) k/uL RBC (3.80-5.40) m/uL Hgb (11.4-16.0) gm/dL Hct (34.0-46.0) % Neutrophils # (1.3-7.7) k/uL Sodium (137-145) mmol/L Potassium (3.5-5.1) mmol/L Chloride (98-107) mmol/L Carbon Dioxide (22-30) mmol/L BUN (7-17) mg/dL Glucose (74-99) mg/dL POC Glucose (mg/dL) 117 H (70-110) mg/dL Calcium (8.4-10.2) mg/dL AST (14-36) U/L ALT (4-34) U/L Alkaline Phosphatase (38-126) U/L Total Protein (6.3-8.2) g/dL Albumin (3.5-5.0) g/dL Urine WBC 58 H (0-5) /hpf Urine WBC Clumps Few H (None) /hpf Urine Bacteria Many H (None) /hpf Hyaline Casts 14 H (0-2) /lpf Urine Mucus Rare H (None) /hpf Urine Yeast (Budding) Few H (None) /hpf Chest x-ray: report reviewed, image reviewed (No acute finding) Assessment and Plan Assessment: 78-year-old female came into the hospital with likely urinary tract infection urine culture appears not to be obtained and has received his Rocephin also has hypokalemia potassium has been replaced Urinary tract infection Episode of hypoglycemia and generalized weakness Generalized anxiety disorder Chronic pain syndrome Hypothyroidism Major depression Insulin requiring diabetes mellitus Plan: Continue Accu-Chek and sliding scale insulin will resume long-acting once sugar is stabilized Continue IV Rocephin Resume home medications Repeat labs tomorrow Further plan of care as per clinical response of the patient Time with Patient: Greater than 30
[2023-09-16] MEDS: MORPHINE SULFATE 4 MG/ML SYRINGE IV PRN ×2 (02:08→22:34)
[2023-09-16] MEDS ORDERED: methocarbamoL 500 MG TAB PO PRN (02:14)
[2023-09-16] MEDS: DILTIAZEM ORAL 60 MG TAB PO SCH ×5 (02:32→22:29)
[2023-09-16] MEDS ORDERED: DEXTROSE 50% SYRINGE 50 ML IVP PRN ×2 (02:41)
[2023-09-16] MEDS: SODIUM CHLORIDE 0.9% 1,000 ML IV SCH ×2 (03:57→16:21)
[2023-09-16] MEDS: LEVOTHYROXINE 75 MCG TAB PO SCH (06:04)
[2023-09-16 06:27] LABS: INR 1.3 (<1.2); Prothrombin Time 13.4 sec (10.0-12.5)
[2023-09-16] MEDS ORDERED: NON FORMULARY DRUG (Insulin Lispro (Humalog) 100 UNIT/ML Ml) SQ SCH (07:30)
[2023-09-16] MEDS ORDERED: Potassium Replacement Protocol 1 EACH MISC MISCELLANE PRN (08:11)
[2023-09-16 08:21] LABS: Glucose,Whole Blood 254 mg/dL (70-110)
[2023-09-16] MEDS: INSULIN ASPART (NovoLOG) 100 UNIT/ML VIAL SQ SCH ×7 (08:26→22:29)
[2023-09-16] MEDS: IPRATROPIUM-ALBUTEROL 3 ML NEB INHALATION SCH ×4 (08:37→18:38)
[2023-09-16] MEDS: SYMBICORT 160-4.5 MCG INHALER INHALATION SCH ×2 (08:37→18:38)
[2023-09-16] MEDS: BUDESONIDE 0.5 MG/2 ML NEBU INHALATION SCH ×2 (08:37→18:38)
[2023-09-16 09:10] LABS: Basophils # (A) 0.04 X 10*3/uL (0.00-0.10); Basophils % (A) 0.4 %; Eosinophils # (A) 0.08 X 10*3/uL (0.04-0.35); Eosinophils % (A) 0.7 %; HCT 36.4 % (37.2-46.3); HGB 11.7 d/dL (12.0-15.0); Lymphocytes # (A) 0.97 X 10*3/uL (0.90-5.00); MCH 29.7 pg (27.0-32.0); MCHC 32.1 d/dL (32.0-37.0); MCV 92.4 FL (80.0-97.0); Mean Platelet Volume 10.6 FL (9.5-12.2); Monocytes # (A) 0.63 X 10*3/uL (0.20-1.00); Monocytes % (A) 5.8 %; NRBC Per 100 WBC 0 X 10*3/uL (0.00-0.01); Neutrophils # (A) 9.03 X 10*3/uL (1.80-7.70); Neutrophils % (A) 83.5 %; Platelet Count 235 X 10*3/uL (140-440); RBC 3.94 X 10*6/uL (4.10-5.20); RDW 15.6 % (11.5-14.5); WBC 10.81 X 10*3/uL (4.50-10.00)
[2023-09-16 09:11] LABS: ALT 27 U/L (8-44); AST 22 U/L (13-35); Albumin 2.9 d/dL (3.8-4.9); Albumin/Globulin Ratio 1.38 Ratio (1.60-3.17); Alkaline Phosphatase 137 U/L (41-126); Blood Urea Nitrogen 17.5 mg/dL (9.0-27.0); Calcium 8.5 mg/dL (8.7-10.3); Carbon Dioxide 29.5 mmol/L (21.6-31.8); Chloride 95 mmol/L (96-109); Globulin 2.1 d/dL (1.6-3.3); Glucose 257 mg/dL (70-110); Phosphorus 2.7 mg/dL (2.4-5.1); Potassium 4.2 mmol/L (3.5-5.5); Sodium 137 mmol/L (135-145); Total Bilirubin 0.5 mg/dL (0.3-1.2)
[2023-09-16] MEDS: POTASSIUM CHLORIDE ER 20 MEQ TAB.ER PO SCH (09:14)
[2023-09-16] MEDS: METOPROLOL SUCCINATE (ER) 50 MG TAB.ER.24H PO SCH (09:20)
[2023-09-16] MEDS: METOCLOPRAMIDE 5 MG TAB PO SCH ×4 (09:20→22:30)
[2023-09-16] MEDS: PANTOPRAZOLE 40 MG TABLET PO SCH ×2 (09:21→18:16)
[2023-09-16] MEDS: FUROSEMIDE 40 MG TAB PO SCH (09:21)
[2023-09-16] MEDS: CHOLECALCIFEROL 25 MCG (1000 IU) TABLET PO SCH (09:21)
[2023-09-16] MEDS: ASCORBIC ACID 500 MG TAB PO SCH (09:21)
[2023-09-16] MEDS: GABAPENTIN 400 MG CAP PO SCH ×3 (09:33→22:29)
--- NOTE | 2023-09-16 11:55 | P.PN ---
Subjective Progress Note Date: 09/16/23 Principal diagnosis: Urinary tract infection Episode of hypoglycemia and generalized weakness Generalized anxiety disorder Chronic pain syndrome Hypothyroidism Major depression Insulin requiring diabetes mellitus 09/16/2023, patient seen eval is examined, remains slightly confused, however hemodynamically stable, heart rate was slightly elevated improved with Adderall, patient was found to be hypokalemic as well but patient has been initiated on potassium replacement protocol labs from today reviewed white cell count is 10.8, hemoglobin as well as/36. Known to 35 PT/INR is 13.4/1.3 chemistry reviewed pressure 4.2 sodium is 137 BUN/creatinine is 17.5/0.5 sugar is 254 Patient is a 78-year-old year female has progressive generalized weakness for last few days also has been hypoglycemic patient has frequent urinary tract infection brought into the hospital for further evaluation patient has prior history of chronic pain syndrome and generalized anxiety disorder and peripheral neuropathy, she also has hypothyroidism on Synthroid, mood disorder depression on Lexapro, has diabetes mellitus takes to obesity as well as sliding scale insulin, and labs are significant for white cell count of 14.9 hemoglobin remained 9.3/28 and platelet count of the 291 chemistry significant for hypokalemia of dictation 3.1 BUN and creatinine within normal limit urinalysis she RBC and WBC seen large leukocyte esterase patient got a dose of Rocephin and potassium in the ER Objective - Vital Signs Vital signs: Vital Signs Temp 98.0 F 09/16/23 07:00 Pulse 78 09/16/23 08:50 Resp 17 09/16/23 07:00 BP 136/84 09/16/23 07:00 Pulse Ox 97 09/16/23 07:00 FiO2 Intake & Output 09/15/23 09/16/23 09/16/23 18:59 06:59 18:59 Other: Voiding Method External Catheter External Catheter # Voids 1 # Bowel Movements 1 - Exam - Constitutional General appearance: average body habitus, disheveled - EENT Eyes: EOMI, PERRLA ENT: normal oropharynx Ears: bilateral: normal - Neck Neck: normal ROM Carotids: bilateral: upstroke normal Thyroid: bilateral: normal size - Respiratory Respiratory: bilateral: CTA - Cardiovascular Rhythm: regular Heart sounds: normal: S1, S2 - Gastrointestinal General gastrointestinal: normal bowel sounds, soft - Integumentary Integumentary: normal turgor - Neurologic Neurologic: CNII-XII intact - Musculoskeletal Musculoskeletal: gait normal, generalized weakness, strength equal bilaterally - Psychiatric Psychiatric: A&O x's 3, appropriate affect, intact judgment & insight - Labs CBC & Chem 7: 09/16/23 05:41 09/16/23 05:41 Labs: Abnormal Lab Results - Last 24 Hours (Table) 09/16/23 09/16/23 09/16/23 Range/Units 05:41 05:41 05:41 WBC 10.81 H (4.50-10.00) X 10*3/uL RBC 3.94 L (4.10-5.20) X 10*6/uL Hgb 11.7 L (12.0-15.0) d/dL Hct 36.4 L (37.2-46.3) % RDW 15.6 H (11.5-14.5) % Neutrophils # 9.03 H (1.80-7.70) X 10*3/uL PT 13.4 H (10.0-12.5) sec INR 1.3 H (<1.2) Chloride 95 L (96-109) mmol/L Anion Gap 12.50 H (4.00-12.00) mmol/L Creatinine 0.5 L (0.6-1.5) mg/dL BUN/Creatinine Ratio 35.00 H (12.00-20.00) Ratio Glucose 257 H (70-110) mg/dL POC Glucose (mg/dL) (70-110) mg/dL Calcium 8.5 L (8.7-10.3) mg/dL Alkaline Phosphatase 137 H (41-126) U/L Total Protein 5.0 L (6.2-8.2) d/dL Albumin 2.9 L (3.8-4.9) d/dL Albumin/Globulin Ratio 1.38 L (1.60-3.17) Ratio 09/16/23 Range/Units 08:20 WBC (4.50-10.00) X 10*3/uL RBC (4.10-5.20) X 10*6/uL Hgb (12.0-15.0) d/dL Hct (37.2-46.3) % RDW (11.5-14.5) % Neutrophils # (1.80-7.70) X 10*3/uL PT (10.0-12.5) sec INR (<1.2) Chloride (96-109) mmol/L Anion Gap (4.00-12.00) mmol/L Creatinine (0.6-1.5) mg/dL BUN/Creatinine Ratio (12.00-20.00) Ratio Glucose (70-110) mg/dL POC Glucose (mg/dL) 254 H (70-110) mg/dL Calcium (8.7-10.3) mg/dL Alkaline Phosphatase (41-126) U/L Total Protein (6.2-8.2) d/dL Albumin (3.8-4.9) d/dL Albumin/Globulin Ratio (1.60-3.17) Ratio Microbiology - Last 24 Hours (Table) 09/14/23 23:25 Blood Culture Gram Stain - Preliminary Blood 09/14/23 23:25 Blood Culture - Preliminary Blood Assessment and Plan Assessment: 78-year-old female came into the hospital with likely urinary tract infection urine culture appears not to be obtained and has received his Rocephin also has hypokalemia potassium has been replaced Altered mental status likely related to sepsis due to very tract infection slowly improving Sinus tachycardia related to above as well as urinary tract infection and volume depleted state, patient is back on atenolol Urinary tract infection Episode of hypoglycemia and generalized weakness Generalized anxiety disorder Chronic pain syndrome Hypothyroidism Major depression Insulin requiring diabetes mellitus Plan: Replace potassium Sinus tachycardia at in all has been resumed Continue Accu-Chek and sliding scale insulin will resume long-acting once sugar is stabilized Continue IV Rocephin Resume home medications Repeat labs tomorrow Further plan of care as per clinical response of the patient
[2023-09-16 12:28] LABS: Glucose,Whole Blood 373 mg/dL (70-110)
[2023-09-16 17:12] LABS: Glucose,Whole Blood 456 mg/dL (70-110)
[2023-09-16] MEDS ORDERED: WARFARIN 2 MG TAB PO ONE (18:00)
[2023-09-16] MEDS: FUROSEMIDE 20 MG TAB PO SCH (18:16)
[2023-09-16 20:39] LABS: Glucose,Whole Blood 301 mg/dL (70-110)
[2023-09-16] MEDS ORDERED: WARFARIN 2.5 MG TAB PO SCH (21:00)
[2023-09-16] MEDS: NORTRIPTYLINE 25 MG CAP PO SCH (22:29)
[2023-09-16] MEDS: ATORVASTATIN 10 MG TAB PO SCH (22:29)
[2023-09-17] MEDS: LEVOTHYROXINE 75 MCG TAB PO SCH (06:33)
[2023-09-17] MEDS: PANTOPRAZOLE 40 MG TABLET PO SCH ×2 (06:33→18:29)
[2023-09-17] MEDS: SODIUM CHLORIDE 0.9% 1,000 ML IV SCH ×2 (06:33→15:38)
[2023-09-17] MEDS: IPRATROPIUM-ALBUTEROL 3 ML NEB INHALATION SCH ×4 (07:31→21:41)
[2023-09-17] MEDS: BUDESONIDE 0.5 MG/2 ML NEBU INHALATION SCH ×2 (07:32→21:41)
[2023-09-17] MEDS: SYMBICORT 160-4.5 MCG INHALER INHALATION SCH ×2 (07:34→21:41)
[2023-09-17 08:02] LABS: Prothrombin Time 10.6 sec (10.0-12.5)
[2023-09-17 08:46] LABS: Glucose,Whole Blood 296 mg/dL (70-110)
[2023-09-17] MEDS: GABAPENTIN 400 MG CAP PO SCH ×3 (08:56→22:24)
[2023-09-17] MEDS: METOPROLOL SUCCINATE (ER) 50 MG TAB.ER.24H PO SCH (08:56)
[2023-09-17] MEDS: FUROSEMIDE 40 MG TAB PO SCH (08:56)
[2023-09-17] MEDS: CHOLECALCIFEROL 25 MCG (1000 IU) TABLET PO SCH (08:56)
[2023-09-17] MEDS: ASCORBIC ACID 500 MG TAB PO SCH (08:56)
[2023-09-17] MEDS: INSULIN ASPART (NovoLOG) 100 UNIT/ML VIAL SQ SCH ×7 (08:57→20:48)
[2023-09-17] MEDS: DILTIAZEM ORAL 60 MG TAB PO SCH ×4 (08:58→22:24)
[2023-09-17] MEDS: METOCLOPRAMIDE 5 MG TAB PO SCH ×4 (08:58→22:24)
[2023-09-17 11:10] LABS: Basophils # (A) 0.04 X 10*3/uL (0.00-0.10); Basophils % (A) 0.5 %; Eosinophils # (A) 0.14 X 10*3/uL (0.04-0.35); Eosinophils % (A) 1.8 %; HCT 35.8 % (37.2-46.3); HGB 11.4 d/dL (12.0-15.0); Lymphocytes # (A) 1.81 X 10*3/uL (0.90-5.00); Lymphocytes % (A) 23.5 %; MCH 29.9 pg (27.0-32.0); MCHC 31.8 d/dL (32.0-37.0); Mean Platelet Volume 10.1 FL (9.5-12.2); Monocytes # (A) 0.67 X 10*3/uL (0.20-1.00); Monocytes % (A) 8.7 %; NRBC Per 100 WBC 0 X 10*3/uL (0.00-0.01); Neutrophils # (A) 4.95 X 10*3/uL (1.80-7.70); Neutrophils % (A) 64.3 %; Platelet Count 210 X 10*3/uL (140-440); RBC 3.81 X 10*6/uL (4.10-5.20)
[2023-09-17 11:33] LABS: Blood Urea Nitrogen 11.2 mg/dL (9.0-27.0); Glucose 212 mg/dL (70-110)
[2023-09-17 11:34] LABS: Calcium 8.3 mg/dL (8.7-10.3); Carbon Dioxide 29.8 mmol/L (21.6-31.8); Chloride 98 mmol/L (96-109); Magnesium 1.8 mg/dL (1.5-2.4); Potassium 3.4 mmol/L (3.5-5.5); Sodium 140 mmol/L (135-145)
[2023-09-17] MEDS ORDERED: ZINC OXIDE PASTE (Z-GUARD) 1 APPLIC APPLIC TOPICAL PRN (12:00)
[2023-09-17 13:08] LABS: Glucose,Whole Blood 266 mg/dL (70-110)
[2023-09-17 14:09] LABS: Glucose,Whole Blood 296 mg/dL (70-110)
[2023-09-17 15:22] VITALS: BMI 34.3
[2023-09-17] MEDS: oxyCODONE-APAP 10-325MG 1 EACH TAB PO SCH ×2 (15:36→22:24)
[2023-09-17] MEDS ORDERED: WARFARIN 2 MG TAB PO ONE (18:00)
[2023-09-17 18:10] LABS: Glucose,Whole Blood 267 mg/dL (70-110)
[2023-09-17] MEDS: FUROSEMIDE 20 MG TAB PO SCH (18:29)
[2023-09-17] MEDS: ATORVASTATIN 10 MG TAB PO SCH (20:23)
[2023-09-17] MEDS: NORTRIPTYLINE 25 MG CAP PO SCH (20:23)
[2023-09-17 20:28] LABS: Glucose,Whole Blood 364 mg/dL (70-110)
[2023-09-18 05:51] LABS: Glucose,Whole Blood 408 mg/dL (70-110)
[2023-09-18] MEDS: LEVOTHYROXINE 75 MCG TAB PO SCH (06:33)
[2023-09-18] MEDS: INSULIN ASPART (NovoLOG) 100 UNIT/ML VIAL SQ SCH ×7 (06:33→21:17)
[2023-09-18] MEDS: PANTOPRAZOLE 40 MG TABLET PO SCH ×2 (06:33→17:56)
[2023-09-18 06:39] LABS: INR 1.2 (<1.2); Prothrombin Time 12.6 sec (10.0-12.5)
[2023-09-18] MEDS: SYMBICORT 160-4.5 MCG INHALER INHALATION SCH ×2 (08:36→19:59)
[2023-09-18] MEDS: BUDESONIDE 0.5 MG/2 ML NEBU INHALATION SCH ×2 (08:36→19:59)
[2023-09-18] MEDS: IPRATROPIUM-ALBUTEROL 3 ML NEB INHALATION SCH ×4 (08:36→19:59)
[2023-09-18] MEDS: CHOLECALCIFEROL 25 MCG (1000 IU) TABLET PO SCH (09:02)
[2023-09-18] MEDS: METOPROLOL SUCCINATE (ER) 50 MG TAB.ER.24H PO SCH (09:02)
[2023-09-18] MEDS: oxyCODONE-APAP 10-325MG 1 EACH TAB PO SCH ×4 (09:02→21:22)
[2023-09-18] MEDS: GABAPENTIN 400 MG CAP PO SCH ×3 (09:02→21:18)
[2023-09-18] MEDS: ASCORBIC ACID 500 MG TAB PO SCH (09:02)
[2023-09-18] MEDS: FUROSEMIDE 40 MG TAB PO SCH (09:02)
[2023-09-18] MEDS: DILTIAZEM ORAL 60 MG TAB PO SCH ×4 (09:04→21:17)
[2023-09-18] MEDS: METOCLOPRAMIDE 5 MG TAB PO SCH ×4 (09:04→21:18)
[2023-09-18] MEDS: SODIUM CHLORIDE 0.9% 1,000 ML IV SCH ×2 (09:04→21:17)
--- NOTE | 2023-09-18 10:40 | CDI ---
Documentation Clarification Form Date: From: Sharon Albarran Phone: [phone] Admit Date: 09/17/2023 09:20:00 AM Patient Name: Miriam Cardoso Visit Number: [id number] Discharge Date: ATTENTION: The Clinical Documentation Specialists (CDI) and [facility] Coding Staff appreciate your assistance in clarifying documentation. Please respond to the clarification below the line at the bottom and electronically sign. The CDI & [facility] Coding staff will review the response and follow-up if needed. Please note: Queries are made part of the Legal Health Record. If you have any questions, please contact the author of this message via ITS. Dr. Sohan Calle Your patient has the documented symptom of Altered Mental Status in the Progress Note dated 09/16. Additional clarification regarding the etiology/cause of this symptom is requested. History/Risk Factors: "78-year-old year female has progressive generalized weakness for last few days also has been hypoglycemic patient has frequent urinary tract infection brought into the hospital for further evaluation patient has prior history of chronic pain syndrome and generalized anxiety disorder and peripheral neuropathy" - H&P dated 09/15 Clinical Indicators: "remains slightly confused" "Altered mental status likely related to sepsis" - Per Progress Note on 09/16 Treatment: "Continue IV Rocephin" - Per Medical H&P on 09/15 Please clarify the etiology of the symptom of Altered Mental Status: Metabolic Encephalopathy due to Sepsis MTDD
[2023-09-18 12:02] LABS: Glucose,Whole Blood 290 mg/dL (70-110)
[2023-09-18 17:22] LABS: Glucose,Whole Blood 325 mg/dL (70-110)
[2023-09-18] MEDS: FUROSEMIDE 20 MG TAB PO SCH (17:56)
[2023-09-18] MEDS ORDERED: WARFARIN 2 MG TAB PO ONE (18:00)
--- NOTE | 2023-09-18 20:19 | P.PN ---
Subjective Progress Note Date: 09/17/23 Principal diagnosis: Urinary tract infection Episode of hypoglycemia and generalized weakness Generalized anxiety disorder Chronic pain syndrome Hypothyroidism Major depression Insulin requiring diabetes mellitus 09/17/2023, patient seen dani reexamined during the rounds labs reviewed medications reviewed, shortness of breath has improved, more awake now, patient remains on IV antibiotics along with bronchodilators she is also on vitamin C high intensity statins along with Pulmicort and her home medications as well, patient continued to do well, denies any chest pain able to tolerate by mouth well, very weak in the lower extremity, in fact patient is bedbound for over a year, PT OT are evaluating the patient 09/16/2023, patient seen dani is examined, remains slightly confused, however hemodynamically stable, heart rate was slightly elevated improved with Adderall, patient was found to be hypokalemic as well but patient has been initiated on potassium replacement protocol labs from today reviewed white cell count is 10.8, hemoglobin as well as/36. Known to 35 PT/INR is 13.4/1.3 chemistry reviewed pressure 4.2 sodium is 137 BUN/creatinine is 17.5/0.5 sugar is 254 Patient is a 78-year-old year female has progressive generalized weakness for last few days also has been hypoglycemic patient has frequent urinary tract infection brought into the hospital for further evaluation patient has prior history of chronic pain syndrome and generalized anxiety disorder and peripheral neuropathy, she also has hypothyroidism on Synthroid, mood disorder depression on Lexapro, has diabetes mellitus takes to obesity as well as sliding scale insulin, and labs are significant for white cell count of 14.9 hemoglobin remained 9.3/28 and platelet count of the 291 chemistry significant for hypokalemia of dictation 3.1 BUN and creatinine within normal limit urinalysis she RBC and WBC seen large leukocyte esterase patient got a dose of Rocephin and potassium in the ER Objective - Vital Signs Vital signs: Vital Signs Temp 97.8 F 09/17/23 07:00 Pulse 84 09/17/23 11:03 Resp 18 09/17/23 08:00 BP 137/80 09/17/23 07:00 Pulse Ox 97 09/17/23 07:00 FiO2 Intake & Output 09/16/23 09/17/23 09/17/23 18:59 06:59 18:59 Intake Total 118 Output Total 700 800 Balance -582 -800 Intake: Oral 118 Output: Urine 700 800 Other: Voiding Method External Catheter External Catheter External Catheter - Exam - Constitutional General appearance: average body habitus, disheveled - EENT Eyes: EOMI, PERRLA ENT: normal oropharynx Ears: bilateral: normal - Neck Neck: normal ROM Carotids: bilateral: upstroke normal Thyroid: bilateral: normal size - Respiratory Respiratory: bilateral: CTA - Cardiovascular Rhythm: regular Heart sounds: normal: S1, S2 - Gastrointestinal General gastrointestinal: normal bowel sounds, soft - Integumentary Integumentary: normal turgor - Neurologic Neurologic: CNII-XII intact - Musculoskeletal Musculoskeletal: gait normal, generalized weakness, strength equal bilaterally - Psychiatric Psychiatric: A&O x's 3, appropriate affect, intact judgment & insight - Labs CBC & Chem 7: 09/17/23 06:33 09/17/23 06:33 Labs: Abnormal Lab Results - Last 24 Hours (Table) 09/16/23 09/16/23 09/17/23 Range/Units 17:10 20:37 06:33 RBC 3.81 L (4.10-5.20) X 10*6/uL Hgb 11.4 L (12.0-15.0) d/dL Hct 35.8 L (37.2-46.3) % MCHC 31.8 L (32.0-37.0) d/dL RDW 16.0 H (11.5-14.5) % Potassium (3.5-5.5) mmol/L Anion Gap (4.00-12.00) mmol/L Creatinine (0.6-1.5) mg/dL BUN/Creatinine Ratio (12.00-20.00) Ratio Glucose (70-110) mg/dL POC Glucose (mg/dL) 456 H 301 H (70-110) mg/dL Calcium (8.7-10.3) mg/dL 09/17/23 09/17/23 09/17/23 Range/Units 06:33 08:43 12:56 RBC (4.10-5.20) X 10*6/uL Hgb (12.0-15.0) d/dL Hct (37.2-46.3) % MCHC (32.0-37.0) d/dL RDW (11.5-14.5) % Potassium 3.4 L (3.5-5.5) mmol/L Anion Gap 12.20 H (4.00-12.00) mmol/L Creatinine 0.5 L (0.6-1.5) mg/dL BUN/Creatinine Ratio 22.40 H (12.00-20.00) Ratio Glucose 212 H (70-110) mg/dL POC Glucose (mg/dL) 296 H 266 H (70-110) mg/dL Calcium 8.3 L (8.7-10.3) mg/dL 09/17/23 Range/Units 14:05 RBC (4.10-5.20) X 10*6/uL Hgb (12.0-15.0) d/dL Hct (37.2-46.3) % MCHC (32.0-37.0) d/dL RDW (11.5-14.5) % Potassium (3.5-5.5) mmol/L Anion Gap (4.00-12.00) mmol/L Creatinine (0.6-1.5) mg/dL BUN/Creatinine Ratio (12.00-20.00) Ratio Glucose (70-110) mg/dL POC Glucose (mg/dL) 296 H (70-110) mg/dL Calcium (8.7-10.3) mg/dL Microbiology - Last 24 Hours (Table) 09/14/23 23:25 Blood Culture Gram Stain - Preliminary Blood Blood Culture - Preliminary 09/14/23 23:25 Blood Culture Gram Stain - Preliminary Blood Blood Culture - Preliminary Coagulase Negative Staph Assessment and Plan Assessment: 78-year-old female came into the hospital with likely urinary tract infection urine culture appears not to be obtained and has received his Rocephin also has hypokalemia potassium has been replaced Altered mental status likely related to sepsis due to very tract infection slowly improving Sinus tachycardia related to above as well as urinary tract infection and volume depleted state, patient is back on atenolol Urinary tract infection Episode of hypoglycemia and generalized weakness Generalized anxiety disorder Chronic pain syndrome Hypothyroidism Major depression Insulin requiring diabetes mellitus Plan: Replace potassium Sinus tachycardia at in all has been resumed Continue Accu-Chek and sliding scale insulin will resume long-acting once sugar is stabilized Continue IV Rocephin Resume home medications Repeat labs tomorrow Further plan of care as per clinical response of the patient Time with Patient: Greater than 30
--- NOTE | 2023-09-18 20:22 | P.PN ---
Subjective Progress Note Date: 09/18/23 Principal diagnosis: Urinary tract infection Episode of hypoglycemia and generalized weakness Generalized anxiety disorder Chronic pain syndrome Hypothyroidism Major depression Insulin requiring diabetes mellitus 09/18/2023, patient seen dani examined during rounds labs reviewed medications reviewed care plan discussed, cultures from admit reviewed urine culture is positive for corynebacterium as well as coag-negative staph likely contaminant repeat cultures, have been ordered, patient remains on IV Rocephin patient sugar remains uncontrolled, patient is currently on NovoLog 15 units every before meals. As well as long-acting 40 minutes 09/17/2023, patient seen dani reexamined during the rounds labs reviewed medications reviewed, shortness of breath has improved, more awake now, patient remains on IV antibiotics along with bronchodilators she is also on vitamin C high intensity statins along with Pulmicort and her home medications as well, patient continued to do well, denies any chest pain able to tolerate by mouth well, very weak in the lower extremity, in fact patient is bedbound for over a year, PT OT are evaluating the patient 09/16/2023, patient seen dani is examined, remains slightly confused, however hemodynamically stable, heart rate was slightly elevated improved with Adderall, patient was found to be hypokalemic as well but patient has been initiated on potassium replacement protocol labs from today reviewed white cell count is 10.8, hemoglobin as well as/36. Known to 35 PT/INR is 13.4/1.3 chemistry reviewed pressure 4.2 sodium is 137 BUN/creatinine is 17.5/0.5 sugar is 254 Patient is a 78-year-old year female has progressive generalized weakness for last few days also has been hypoglycemic patient has frequent urinary tract in fection brought into the hospital for further evaluation patient has prior history of chronic pain syndrome and generalized anxiety disorder and peripheral neuropathy, she also has hypothyroidism on Synthroid, mood disorder depression on Lexapro, has diabetes mellitus takes to obesity as well as sliding scale insulin, and labs are significant for white cell count of 14.9 hemoglobin remained 9.3/28 and platelet count of the 291 chemistry significant for hypokalemia of dictation 3.1 BUN and creatinine within normal limit urinalysis she RBC and WBC seen large leukocyte esterase patient got a dose of Rocephin and potassium in the ER Objective - Vital Signs Vital signs: Vital Signs Temp 98 F 09/18/23 18:24 Pulse 93 09/18/23 18:24 Resp 17 09/18/23 18:24 BP 127/84 09/18/23 18:24 Pulse Ox 94 L 09/18/23 18:24 FiO2 Intake & Output 09/18/23 09/18/23 09/19/23 06:59 18:59 06:59 Intake Total 618 Output Total 650 700 Balance -650 -82 Intake: Oral 618 Output: Urine 650 700 Other: Voiding Method External Catheter External Catheter # Voids 1 - Exam - Constitutional General appearance: average body habitus, disheveled - EENT Eyes: EOMI, PERRLA ENT: normal oropharynx Ears: bilateral: normal - Neck Neck: normal ROM Carotids: bilateral: upstroke normal Thyroid: bilateral: normal size - Respiratory Respiratory: bilateral: CTA - Cardiovascular Rhythm: regular Heart sounds: normal: S1, S2 - Gastrointestinal General gastrointestinal: normal bowel sounds, soft - Integumentary Integumentary: normal turgor - Neurologic Neurologic: CNII-XII intact - Musculoskeletal Musculoskeletal: gait normal, generalized weakness, strength equal bilaterally - Psychiatric Psychiatric: A&O x's 3, appropriate affect, intact judgment & insight - Labs CBC & Chem 7: 09/17/23 06:33 09/17/23 06:33 Labs: Abnormal Lab Results - Last 24 Hours (Table) 09/17/23 09/18/23 09/18/23 Range/Units 20:26 05:17 05:49 PT 12.6 H (10.0-12.5) sec INR 1.2 H (<1.2) POC Glucose (mg/dL) 364 H 408 H (70-110) mg/dL 09/18/23 09/18/23 Range/Units 12:00 17:15 PT (10.0-12.5) sec INR (<1.2) POC Glucose (mg/dL) 290 H 325 H (70-110) mg/dL Microbiology - Last 24 Hours (Table) 09/14/23 23:25 Blood Culture Gram Stain - Final Blood Blood Culture - Final Corynebacterium species 09/14/23 23:25 Blood Culture Gram Stain - Final Blood Blood Culture - Final Coagulase Negative Staph Assessment and Plan Assessment: 78-year-old female came into the hospital with likely urinary tract infection urine culture appears not to be obtained and has received his Rocephin also has hypokalemia potassium has been replaced Positive blood cultures likely contaminant, repeat cultures have been obtained Uncontrolled diabetes with hyperglycemia, insulin does being adjusted Altered mental status likely related to sepsis due to very tract infection slowly improving Sinus tachycardia related to above as well as urinary tract infection and volume depleted state, patient is back on atenolol Urinary tract infection Episode of hypoglycemia and generalized weakness Generalized anxiety disorder Chronic pain syndrome Hypothyroidism Major depression Insulin requiring diabetes mellitus Plan: Replace potassium Sinus tachycardia at in all has been resumed Continue Accu-Chek and sliding scale insulin will resume long-acting once sugar is stabilized Continue IV Rocephin Resume home medications Repeat labs tomorrow Further plan of care as per clinical response of the patient Time with Patient: Greater than 30
[2023-09-18 20:50] LABS: Glucose,Whole Blood 216 mg/dL (70-110)
[2023-09-18] MEDS: ATORVASTATIN 10 MG TAB PO SCH (21:16)
[2023-09-18] MEDS: NORTRIPTYLINE 25 MG CAP PO SCH (21:17)
[2023-09-18] MEDS: INSULIN DETEMIR (LEVEMIR) 100 UNIT/ML SYR SQ SCH (21:17)
[2023-09-18] MEDS: MORPHINE SULFATE 4 MG/ML SYRINGE IV PRN (21:25)
[2023-09-19] MEDS: LEVOTHYROXINE 75 MCG TAB PO SCH (06:05)
[2023-09-19] MEDS: PANTOPRAZOLE 40 MG TABLET PO SCH ×2 (06:05→17:58)
[2023-09-19 06:19] LABS: INR 1.5 (<1.2); Prothrombin Time 15.8 sec (10.0-12.5)
[2023-09-19 07:23] LABS: Glucose,Whole Blood 292 mg/dL (70-110)
[2023-09-19] MEDS: SYMBICORT 160-4.5 MCG INHALER INHALATION SCH ×2 (07:56→19:58)
[2023-09-19] MEDS: IPRATROPIUM-ALBUTEROL 3 ML NEB INHALATION SCH ×4 (07:56→19:58)
[2023-09-19] MEDS: BUDESONIDE 0.5 MG/2 ML NEBU INHALATION SCH ×2 (07:57→19:58)
[2023-09-19 08:53] LABS: HCT 34.6 % (34.0-46.0); HGB 10.8 gm/dL (11.4-16.0); Hypochromasia Moderate; MCH 30.5 pg (25.0-35.0); MCHC 31.3 g/dL (31.0-37.0); Mean Platelet Volume 10.5; Platelet Count 190 k/uL (150-450); RBC 3.55 m/uL (3.80-5.40); RDW 15.4 % (11.5-15.5); WBC 7.2 k/uL (3.8-10.6)
[2023-09-19 09:06] LABS: ALT 25 U/L (4-34); AST 23 U/L (14-36); African American GFR (CKD) >90 (>60 ml/min/1.73 sqM); Albumin 2.3 g/dL (3.5-5.0); Albumin/Globulin Ratio 0.9; Alkaline Phosphatase 103 U/L (38-126); Anion Gap 6 mmol/L; Bilirubin,Unconjugated 0.1 mg/dL (0.0-1.1); Blood Urea Nitrogen 25 mg/dL (7-17); Carbon Dioxide 29 mmol/L (22-30); Chloride 102 mmol/L (98-107); Globulin 2.5 g/dL; Non-African American GFR(CKD) 85 (>60 ml/min/1.73 sqM); Potassium 3.8 mmol/L (3.5-5.1); Sodium 137 mmol/L (137-145); Total Bilirubin 0.2 mg/dL (0.2-1.3); Total Protein 4.8 g/dL (6.3-8.2)
[2023-09-19] MEDS: INSULIN ASPART (NovoLOG) 100 UNIT/ML VIAL SQ SCH ×7 (09:18→21:32)
[2023-09-19] MEDS: METOPROLOL SUCCINATE (ER) 50 MG TAB.ER.24H PO SCH (09:19)
[2023-09-19] MEDS: DILTIAZEM ORAL 60 MG TAB PO SCH ×4 (09:19→21:34)
[2023-09-19] MEDS: METOCLOPRAMIDE 5 MG TAB PO SCH ×4 (09:19→21:34)
[2023-09-19] MEDS: FUROSEMIDE 40 MG TAB PO SCH (09:20)
[2023-09-19] MEDS: CHOLECALCIFEROL 25 MCG (1000 IU) TABLET PO SCH (09:20)
[2023-09-19 09:21] LABS: MCV 97.6 fL (80.0-100.0)
[2023-09-19] MEDS: GABAPENTIN 400 MG CAP PO SCH ×3 (09:29→21:34)
[2023-09-19] MEDS: oxyCODONE-APAP 10-325MG 1 EACH TAB PO SCH ×4 (09:29→21:34)
[2023-09-19] MEDS: ASCORBIC ACID 500 MG TAB PO SCH (10:29)
[2023-09-19 12:53] LABS: Glucose,Whole Blood 317 mg/dL (70-110)
[2023-09-19] MEDS: SODIUM CHLORIDE 0.9% 1,000 ML IV SCH (13:13)
[2023-09-19 17:16] LABS: Glucose,Whole Blood 278 mg/dL (70-110)
[2023-09-19] MEDS: FUROSEMIDE 20 MG TAB PO SCH (17:58)
[2023-09-19] MEDS ORDERED: WARFARIN 3 MG TAB PO ONE (18:00)
[2023-09-19 21:04] LABS: Glucose,Whole Blood 255 mg/dL (70-110)
[2023-09-19] MEDS: ATORVASTATIN 10 MG TAB PO SCH (21:32)
[2023-09-19] MEDS: INSULIN DETEMIR (LEVEMIR) 100 UNIT/ML SYR SQ SCH (21:33)
[2023-09-19] MEDS: NORTRIPTYLINE 25 MG CAP PO SCH (21:33)
[2023-09-19] MEDS: MORPHINE SULFATE 4 MG/ML SYRINGE IV PRN (21:34)
--- NOTE | 2023-09-19 23:47 | P.PN ---
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 patient is awake and an alert, denies any chest pain, mild intermittent abdominal pain is present, on room air breathing comfortably, patient is concerned about recurrent urinary tract infection infectious disease has been consulted, sugar continued to remain 200 range patient will resume on bronchodilator, I intensity statin, Pulmicort and DuoNeb, Rocephin and her home medications, initially culture were positive for corynebacterium as well as coag-negative staph however repeat cultures are been negative likely contaminant 09/18/2023, patient seen eval examined during rounds labs reviewed medications reviewed care plan discussed, cultures from admit reviewed urine culture is positive for corynebacterium as well as coag-negative staph likely contaminant repeat cultures, have been ordered, patient remains on IV Rocephin patient sugar remains uncontrolled, patient is currently on NovoLog 15 units every before meals. As well as long-acting 40 minutes 09/17/2023, patient seen eval reexamined during the rounds labs reviewed medications reviewed, shortness of breath has improved, more awake now, patient remains on IV antibiotics along with bronchodilators she is also on vitamin C high intensity statins along with Pulmicort and her home medications as well, p atient continued to do well, denies any chest pain able to tolerate by mouth well, very weak in the lower extremity, in fact patient is bedbound for over a year, PT OT are evaluating the patient 09/16/2023, patient seen eval is examined, remains slightly confused, however hemodynamically stable, heart rate was slightly elevated improved with Adderall, patient was found to be hypokalemic as well but patient has been initiated on potassium replacement protocol labs from today reviewed white cell count is 10.8, hemoglobin as well as/36. Known to 35 PT/INR is 13.4/1.3 chemistry reviewed pressure 4.2 sodium is 137 BUN/creatinine is 17.5/0.5 sugar is 254 Patient is a 78-year-old year female has progressive generalized weakness for last few days also has been hypoglycemic patient has frequent urinary tract infection brought into the hospital for further evaluation patient has prior history of chronic pain syndrome and generalized anxiety disorder and peripheral neuropathy, she also has hypothyroidism on Synthroid, mood disorder depression on Lexapro, has diabetes mellitus takes to obesity as well as sliding scale insulin, and labs are significant for white cell count of 14.9 hemoglobin remained 9.3/28 and platelet count of the 291 chemistry significant for hypokalemia of dictation 3.1 BUN and creatinine within normal limit urinalysis she RBC and WBC seen large leukocyte esterase patient got a dose of Rocephin and potassium in the ER Objective - Vital Signs Vital signs: Vital Signs Temp 98.5 F 09/19/23 14:00 Pulse 91 09/19/23 21:23 Resp 15 09/19/23 21:23 BP 131/71 09/19/23 14:00 Pulse Ox 96 09/19/23 14:00 FiO2 Intake & Output 09/19/23 09/19/23 09/20/23 06:59 18:59 05:59 Output Total 1100 400 200 Balance -1100 -400 -200 Output: Urine 1100 400 200 Other: Voiding Method External Catheter External Catheter External Catheter # Voids 1 1 - Exam - Constitutional General appearance: average body habitus, disheveled - EENT Eyes: EOMI, PERRLA ENT: normal oropharynx Ears: bilateral: normal - Neck Neck: normal ROM Carotids: bilateral: upstroke normal Thyroid: bilateral: normal size - Respiratory Respiratory: bilateral: CTA - Cardiovascular Rhythm: regular Heart sounds: normal: S1, S2 - Gastrointestinal General gastrointestinal: normal bowel sounds, soft - Integumentary Integumentary: normal turgor - Neurologic Neurologic: CNII-XII intact - Musculoskeletal Musculoskeletal: gait normal, generalized weakness, strength equal bilaterally - Psychiatric Psychiatric: A&O x's 3, appropriate affect, intact judgment & insight - Labs CBC & Chem 7: 09/18/23 10:43 09/18/23 10:43 Labs: Abnormal Lab Results - Last 24 Hours (Table) 09/18/23 09/18/23 09/19/23 Range/Units 10:43 10:43 05:29 RBC 3.55 L (3.80-5.40) m/uL Hgb 10.8 L (11.4-16.0) gm/dL PT 15.8 H (10.0-12.5) sec INR 1.5 H (<1.2) BUN 25 H (7-17) mg/dL POC Glucose (mg/dL) (70-110) mg/dL Total Protein 4.8 L (6.3-8.2) g/dL Albumin 2.3 L (3.5-5.0) g/dL 09/19/23 09/19/23 09/19/23 Range/Units 07:22 12:50 17:12 RBC (3.80-5.40) m/uL Hgb (11.4-16.0) gm/dL PT (10.0-12.5) sec INR (<1.2) BUN (7-17) mg/dL POC Glucose (mg/dL) 292 H 317 H 278 H (70-110) mg/dL Total Protein (6.3-8.2) g/dL Albumin (3.5-5.0) g/dL 09/19/23 Range/Units 21:02 RBC (3.80-5.40) m/uL Hgb (11.4-16.0) gm/dL PT (10.0-12.5) sec INR (<1.2) BUN (7-17) mg/dL POC Glucose (mg/dL) 255 H (70-110) mg/dL Total Protein (6.3-8.2) g/dL Albumin (3.5-5.0) g/dL Microbiology - Last 24 Hours (Table) 09/18/23 11:26 Blood Culture - Preliminary Blood 09/18/23 10:43 Blood Culture - Preliminary Blood Assessment and Plan Assessment: 78-year-old female came into the hospital with likely urinary tract infection urine culture appears not to be obtained and has received his Rocephin also has hypokalemia potassium has been replaced Positive blood cultures likely contaminant, repeat cultures have been obtained Uncontrolled diabetes with hyperglycemia, insulin does being adjusted Altered mental status likely related to sepsis due to very tract infection slowly improving Sinus tachycardia related to above as well as urinary tract infection and volume depleted state, patient is back on atenolol Urinary tract infection Episode of hypoglycemia and generalized weakness Generalized anxiety disorder Chronic pain syndrome Hypothyroidism Major depression Insulin requiring diabetes mellitus Plan: Replace potassium Sinus tachycardia at in all has been resumed Continue Accu-Chek and sliding scale insulin will resume long-acting once sugar is stabilized Continue IV Rocephin Resume home medications Repeat labs tomorrow Further plan of care as per clinical response of the patient
[2023-09-20] MEDS: SODIUM CHLORIDE 0.9% 1,000 ML IV SCH ×2 (02:36→16:56)
[2023-09-20 05:10] LABS: INR 1.7 (<1.2); Prothrombin Time 17.5 sec (10.0-12.5)
[2023-09-20] MEDS: LEVOTHYROXINE 75 MCG TAB PO SCH (06:38)
[2023-09-20] MEDS: oxyCODONE-APAP 10-325MG 1 EACH TAB PO SCH ×4 (06:38→21:37)
[2023-09-20] MEDS: PANTOPRAZOLE 40 MG TABLET PO SCH ×2 (06:38→16:53)
[2023-09-20 07:56] LABS: Glucose,Whole Blood 270 mg/dL (70-110)
[2023-09-20] MEDS: ASCORBIC ACID 500 MG TAB PO SCH (09:04)
[2023-09-20] MEDS: DILTIAZEM ORAL 60 MG TAB PO SCH ×4 (09:04→21:36)
[2023-09-20] MEDS: GABAPENTIN 400 MG CAP PO SCH ×3 (09:04→21:36)
[2023-09-20] MEDS: METOPROLOL SUCCINATE (ER) 50 MG TAB.ER.24H PO SCH (09:04)
[2023-09-20] MEDS: CHOLECALCIFEROL 25 MCG (1000 IU) TABLET PO SCH (09:05)
[2023-09-20] MEDS: FUROSEMIDE 40 MG TAB PO SCH (09:05)
[2023-09-20] MEDS: METOCLOPRAMIDE 5 MG TAB PO SCH ×4 (09:05→21:36)
[2023-09-20] MEDS: INSULIN ASPART (NovoLOG) 100 UNIT/ML VIAL SQ SCH ×7 (09:05→21:35)
[2023-09-20] MEDS: IPRATROPIUM-ALBUTEROL 3 ML NEB INHALATION SCH ×4 (09:20→20:12)
[2023-09-20] MEDS: SYMBICORT 160-4.5 MCG INHALER INHALATION SCH ×2 (09:20→20:12)
[2023-09-20] MEDS: BUDESONIDE 0.5 MG/2 ML NEBU INHALATION SCH ×2 (09:20→20:12)
[2023-09-20 11:59] LABS: Glucose,Whole Blood 289 mg/dL (70-110)
[2023-09-20] MEDS ORDERED: bisacodyL 5 MG TABLET.DR PO PRN (15:45)
[2023-09-20] MEDS: FUROSEMIDE 20 MG TAB PO SCH (16:53)
[2023-09-20 17:34] LABS: Glucose,Whole Blood 276 mg/dL (70-110)
[2023-09-20] MEDS ORDERED: WARFARIN 3 MG TAB PO ONE (18:00)
[2023-09-20 20:21] LABS: Glucose,Whole Blood 258 mg/dL (70-110)
--- NOTE | 2023-09-20 21:21 | P.CONS ---
History of Present Illness - Reason for Consult Consult date: 09/20/23 UTI Requesting physician: Sohan Calle - Chief Complaint Weakness and mental status changes x one day - History of Present Illness Patient is a 78-year-old female with a past medical history significant for diabetes mellitus fibromyalgia reflux hypertension hyperlipi demia history of bilateral heel pressure ulcer which are currently healed presenting to the hospital 5 days ago for evaluation of low blood sugar at the patient apparently was more weaker than usual and concern for a urinary tract infection patient was also complaining of burning of urine and did have some mental status changes patient denies having any headache or URI symptoms no chest pain shortness of breath or cough some nausea but no vomiting no abdominal pain and no diarrhea patient on presentation to the hospital was afebrile and no fever has been recorded subsequently mildly tachycardic but not hypoxic or hypotensive patient known presentation to the hospital have white count of 14.9 and the white count subsequently normalized creatinine was normal as well as the liver enzymes patient did have a positive UA unfortunately no culture was done on the urine blood culture positive for coagulase-negative staph and Corynebacterium [facility] was consulted last night concern for possible culture and UTI Review of Systems Positive point and negatives has been mentioned in the HPI, complete review of systems was performed and all other systems are negative Past Medical History Past Medical History: Blood Disorder, Cancer, CVA/TIA, Diabetes Mellitus, Fibromyalgia, GERD/Reflux, Hyperlipidemia, Osteoarthritis (OA), Renal Disease, Syncope, Thyroid Disorder, Vascular Disorder Additional Past Medical History / Comment(s): with L5 compression fracture and L3 indetermined age compression fracture, bilateral lower extremity weakness, bilateral foot drop. 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 History of Any Multi-Drug Resistant Organisms: MRSA, VRE, VRE Year Discovered:: 2008 R knee per pt MDRO Source:: 03/03/16 L foot Past Surgical History: Adenoidectomy, Appendectomy, Bowel Resection, Cholecystec nitza, Hysterectomy, Joint Replacement, Orthopedic Surgery, Tonsillectomy Additional Past Surgical History / Comment(s): 10/26/15 suspension microlarygoscopy with benign bx, thyroidectomy, right TKA with infection-I&D then a revision, left ankle surgery WITH HARDWARE, 2 BOWEL SURGERIES, ORIF rt hip-07/2015, bilateral carpal tunnel releases, 1997 cardiac cath-normal, bilate ral heel debridements, COLONOSCOPY, R flank "blood tumor" removed, bilateral cataract removals Past Anesthesia/Blood Transfusion Reactions: Postoperative Nausea & Vomiting (PO NV) Additional Past Anesthesia/Blood Transfusion Reaction / Comm: Pt received blood after ORIF of the hip surgery Past Psychological History: Anxiety, Depression Smoking Status: Never smoker Past Alcohol Use History: None Reported Past Drug Use History: None Reported - Past Family History Father Family Medical History: Dementia Additional Family Medical History / Comment(s): Father of dementia at the age of 91 yrs. Mother Family Medical History: Osteoarthritis (OA), Renal Disease Additional Family Medical History / Comment(s): Mother after kidney stone surgery and went to halfway. She was 90 yrs. old. Medications and Allergies Home Medications Medication Instructions Recorded Confirmed Type oxyCODONE-APAP 10-325MG [Percocet 1 tab PO QID 10/25/15 09/15/23 History 10-325 mg] ALPRAZolam [Xanax] 0.5 mg PO BID PRN 08/27/17 09/15/23 History Levothyroxine Sodium 150 mcg PO DAILY 10/01/19 09/15/23 History Warfarin [Coumadin] 2.5 mg PO HS #0 11/28/19 09/15/23 Rx Metoprolol Succinate (ER) [Toprol 50 mg PO DAILY 90 Days #90 12/10/20 09/15/23 Rx XL] tab.er.24h Ascorbic Acid [Vitamin C] 500 mg PO DAILY 09/15/23 09/15/23 History Atorvastatin [Lipitor] 10 mg PO HS 09/15/23 09/15/23 History Budesonide [Pulmicort] 0.5 mg INHALATION RT-BID 09/15/23 09/15/23 History Cholecalciferol [Vitamin D3 (25 50 mcg PO DAILY 09/15/23 09/15/23 History Mcg = 1000 Iu)] Fluticasone Propion/Salmeterol 1 puff INHALATION RT-BID 09/15/23 09/15/23 History [Wixela 500-50 Inhub] Furosemide [Lasix] 20 mg PO AC-SUPPER 09/15/23 09/15/23 History Furosemide [Lasix] 40 mg PO DAILY 09/15/23 09/15/23 History Gabapentin [Neurontin] 800 mg PO TID 09/15/23 09/15/23 History INSULIN LISPRO (HumaLOG) [humaLOG] 15 units SQ AC-TID 09/15/23 09/15/23 History INSULIN LISPRO (HumaLOG) [humaLOG] See Protocol SQ ACHS 09/15/23 09/15/23 History Insulin Glargine,Hum.rec.anlog 40 units SQ HS 09/15/23 09/15/23 History [Lantus Solostar Pen] Ipratropium-Albuterol Nebulize 3 ml INHALATION RT-QID 09/15/23 09/15/23 History [Duoneb 0.5 mg-3 mg/3 ml Soln] Lactobacillus Acidophilus 1 cap PO BID 09/15/23 09/15/23 History [Acidophilus Probiotic] Metoclopramide HCl [Reglan] 5 mg PO QID 09/15/23 09/15/23 History Nortriptyline [Pamelor] 25 mg PO HS 09/15/23 09/15/23 History Omeprazole [PriLOSEC] 40 mg PO BID 09/15/23 09/15/23 History Sennosides [Senokot] 17.2 mg PO DAILY PRN 09/15/23 09/15/23 History Tirzepatide [Mounjaro] 2.5 mg SQ WE 09/15/23 09/15/23 History dilTIAZem HCL 60 mg PO QID 09/15/23 09/15/23 History metFORMIN HCL [Glucophage] 500 mg PO BID 09/15/23 09/15/23 History methocarbamoL 500 mg PO TID PRN 09/15/23 09/15/23 History polyethylene glycoL 3350 [Miralax] 17 gm PO DAILY 09/15/23 09/15/23 History predniSONE [Deltasone] 20 mg PO DAILY 09/15/23 09/15/23 History Allergies Allergy/AdvReac Type Severity Reaction Status Date / Time nickel [Nickel] Allergy Rash/Hives Verified 09/15/23 10:40 adhesive tape AdvReac blister Verified 09/15/23 10:40 duloxetine HCl AdvReac Hallucinati Verified 09/15/23 10:40 [From Cymbalta] ons sertraline HCl [From Zoloft] AdvReac Hallucinati Verified 09/15/23 10:40 ons vortioxetine hydrobromide AdvReac Hallucinati Verified 09/15/23 10:40 [From Brintellix] ons Physical Exam Vitals: Vital Signs Temp Pulse Pulse Resp BP Pulse Ox 09/20/23 08:00 90 16 09/20/23 07:37 97.6 F 90 16 145/73 95 09/20/23 03:48 98.2 F 95 19 120/79 95 09/19/23 21:23 91 15 09/19/23 19:13 98.1 F 94 16 124/78 94 L 09/19/23 15:44 88 09/19/23 15:33 88 09/19/23 14:00 98.5 F 91 15 131/71 96 09/19/23 12:08 80 Intake and Output 09/19/23 09/20/23 09/20/23 23:59 06:59 14:59 Output Total Balance Output: Urine Other: Voiding Method External Catheter # Voids GENERAL DESCRIPTION: Elderly female lying in bed, no distress. No tachypnea or accessory muscle of respiration use. HEENT: Shows Pallor , no scleral icterus. Oral mucous membrane is dry. No pharyngeal erythema or thrush NECK: Trachea central, no thyromegaly. LUNGS: Unlabored breathing. Clear to auscultation anteriorly. No wheeze or crackle. HEART: S1, S2, regular rate and rhythm. No loud murmur ABDOMEN: Soft, no tenderness , EXTREMITIES: No edema of feet. SKIN: No rash, no masses palpable. NEUROLOGICAL: The patient is awake, alert, oriented x3, mood and affect normal. Results CBC & Chem 7: 09/22/23 06:17 09/22/23 06:17 Labs: Abnormal Lab Results - Last 24 Hours (Table) 1109/19/23 09/19/23 Range/Units 12:50 17:12 21:02 PT (10.0-12.5) sec INR (<1.2) POC Glucose (mg/dL) 317 H 278 H 255 H (70-110) mg/dL 09/20/23 09/20/23 Range/Units 03:55 07:54 PT 17.5 H (10.0-12.5) sec INR 1.7 H (<1.2) POC Glucose (mg/dL) 270 H (70-110) mg/dL Microbiology - Last 24 Hours (Table) 09/18/23 11:26 Blood Culture - Preliminary Blood 09/18/23 10:43 Blood Culture - Preliminary Blood Assessment and Plan (1) UTI (urinary tract infection) Status: Acute Code(s): N39.0 - URINARY TRACT INFECTION, SITE NOT SPECIFIED SNOMED Code(s): 73845332 (2) Positive blood culture Status: Acute Code(s): R78.81 - BACTEREMIA SNOMED Code(s): 805956490 Plan: 1patient was in the hospital with weakness mental status changes likely multifactorial in this patient with a history of recurrent UTI and urinary symptom positive UA, likely component of symptomatic urinary tract infection likely from enteric gram-negative breath unfortunately no urine culture ordered on initial sample on presentation to the hospital 5 days ago and the patient still complaining of some urinary symptoms of burning 2positive blood culture with Corynebacterium coagulase-negative staph likely skin contamination and no need for vancomycin 3we will repeat her urine culture straight cath to obtain a clean-catch sample 4-continue with Rocephin while waiting for the repeat urine cultures to finalize We will follow on clinical condition and cultures to further adjust medication if needed Thank you for this consultation we will follow the patient along with you Dictation was produced using [employer] dictation software. please excuse any grammatical, word or spelling errors. Time with Patient: Greater than 30
[2023-09-20] MEDS: ATORVASTATIN 10 MG TAB PO SCH (21:35)
[2023-09-20] MEDS: NORTRIPTYLINE 25 MG CAP PO SCH (21:36)
[2023-09-20] MEDS: INSULIN DETEMIR (LEVEMIR) 100 UNIT/ML SYR SQ SCH (21:36)
[2023-09-21] MEDS: PANTOPRAZOLE 40 MG TABLET PO SCH ×2 (05:57→18:01)
[2023-09-21] MEDS: SODIUM CHLORIDE 0.9% 1,000 ML IV SCH ×2 (05:57→13:27)
[2023-09-21] MEDS: LEVOTHYROXINE 75 MCG TAB PO SCH (05:57)
[2023-09-21] MEDS: oxyCODONE-APAP 10-325MG 1 EACH TAB PO SCH ×4 (06:04→21:16)
[2023-09-21 06:34] LABS: INR 1.7 (<1.2); Prothrombin Time 17.2 sec (10.0-12.5)
[2023-09-21 07:19] LABS: Glucose,Whole Blood 218 mg/dL (70-110)
[2023-09-21] MEDS: BUDESONIDE 0.5 MG/2 ML NEBU INHALATION SCH ×2 (08:06→21:01)
[2023-09-21] MEDS: IPRATROPIUM-ALBUTEROL 3 ML NEB INHALATION SCH ×4 (08:06→21:01)
[2023-09-21] MEDS: SYMBICORT 160-4.5 MCG INHALER INHALATION SCH ×2 (08:06→21:01)
[2023-09-21] MEDS: INSULIN ASPART (NovoLOG) 100 UNIT/ML VIAL SQ SCH ×7 (09:57→21:13)
[2023-09-21] MEDS: FUROSEMIDE 40 MG TAB PO SCH (09:58)
[2023-09-21] MEDS: GABAPENTIN 400 MG CAP PO SCH ×3 (09:58→21:13)
[2023-09-21] MEDS: ASCORBIC ACID 500 MG TAB PO SCH (09:58)
[2023-09-21] MEDS: DILTIAZEM ORAL 60 MG TAB PO SCH ×4 (09:58→21:14)
[2023-09-21] MEDS: CHOLECALCIFEROL 25 MCG (1000 IU) TABLET PO SCH (09:58)
[2023-09-21] MEDS: METOPROLOL SUCCINATE (ER) 50 MG TAB.ER.24H PO SCH (09:58)
[2023-09-21] MEDS: METOCLOPRAMIDE 5 MG TAB PO SCH ×4 (09:59→21:14)
[2023-09-21] MEDS: MORPHINE SULFATE 4 MG/ML SYRINGE IV PRN (10:14)
--- NOTE | 2023-09-21 12:07 | P.PN ---
Subjective Progress Note Date: 09/21/23 Principal diagnosis: UTI and positive blood culture Patient is a 78-year-old female with a past medical history significant for diabetes mellitus fibromyalgia reflux hypertension hyperlipidemia history of bilateral heel pressure ulcer which are currently healed presenting to the hospital for evaluation of weakness no blood sugar patient did have a positive urinary symptoms concerning for UTI On today's evaluation that is 09/21/2023, the patient remains to be afebrile, the patient is breathing comfortably on room air , the patient denies any chest pain or cough and no sputum production, patient denies nausea/vomiting or diarrhea , no abdominal pain She did have white count 7.2 as of 09/18/2023, INR is 1.72. UA was requested and completed Objective - Vital Signs Vital signs: Vital Signs Temp 97.9 F 09/21/23 07:49 Pulse 104 H 09/21/23 08:20 Resp 17 09/21/23 07:49 BP 108/73 09/21/23 07:49 Pulse Ox 95 09/21/23 07:49 FiO2 Intake & Output 09/20/23 09/21/23 09/21/23 18:59 06:59 18:59 Intake Total 118 Output Total 700 650 Balance -700 -532 Intake: Oral 118 Output: Urine 700 650 Other: Voiding Method External Catheter External Catheter External Catheter - Exam GENERAL DESCRIPTION: An elderly female lying in bed in no distress RESPIRATORY SYSTEM: Unlabored breathing , clear to auscultation anteriorly HEART: S1 S2 regular rate and rhythm , ABDOMEN: Soft , no tenderness EXTREMITIES: No edema feet - Labs CBC & Chem 7: 09/18/23 10:43 09/18/23 10:43 Labs: Abnormal Lab Results - Last 24 Hours (Table) 09/20/23 09/20/23 09/20/23 Range/Units 11:57 17:33 20:20 PT (10.0-12.5) sec INR (<1.2) POC Glucose (mg/dL) 289 H 276 H 258 H (70-110) mg/dL 09/21/23 09/21/23 Range/Units 05:28 07:16 PT 17.2 H (10.0-12.5) sec INR 1.7 H (<1.2) POC Glucose (mg/dL) 218 H (70-110) mg/dL Microbiology - Last 24 Hours (Table) 09/18/23 11:26 Blood Culture - Preliminary Blood 09/18/23 10:43 Blood Culture - Preliminary Blood Assessment and Plan (1) Positive blood culture Current Visit: Yes Status: Acute Code(s): R78.81 - BACTEREMIA SNOMED Code(s): 676719208 (2) UTI (urinary tract infection) Current Visit: Yes Status: Acute Code(s): N39.0 - URINARY TRACT INFECTION, SITE NOT SPECIFIED SNOMED Code(s): 09579779 Plan: 1patient was in the hospital with weakness mental status changes likely multifactorial in this patient with a history of recurrent UTI and urinary symptom positive UA, likely component of symptomatic urinary tract infection likely from enteric gram-negative breath unfortunately no urine culture ordered on initial sample on presentation to the hospital 5 days ago and the patient still complaining of some urinary symptoms of burning 2positive blood culture with Corynebacterium coagulase-negative staph likely skin contamination and no need for vancomycin 3we're currently waiting for the repeat UA sample to be finalize 4-Pt to continue with Rocephin while waiting for the repeat urine cultures to finalize Dictation was produced using [employer] dictation software. please excuse any grammatical, word or spelling errors. Time with Patient: Less than 30
--- NOTE | 2023-09-21 12:13 | P.PN ---
Subjective Progress Note Date: 09/20/23 Principal diagnosis: Urinary tract infection Episode of hypoglycemia and generalized weakness Generalized anxiety disorder Chronic pain syndrome Hypothyroidism Major depression Insulin requiring diabetes mellitus September 20 2003, patient seen and evaluated examined care plan discussed, patient sometime in pain, however she has a big bowel movement earlier, Dr. Espino has been consulted PTOT has been following patient for lower extremity weakness, patient has a recurrent urinary tract infection cultures however were not obtained prior to antibiotics ID service has been following repeat cultures are performed for drug-resistant bacteria 09/19/2023, patient seen and evaluated examined while covering for Dr. Eloy Griffin patient is awake and an alert, denies any chest pain, mild intermittent abdominal pain is present, on room air breathing comfortably, patient is concerned about recurrent urinary tract infection infectious disease has been consulted, sugar continued to remain 200 range patient will resume on bronchodilator, I intensity statin, Pulmicort and DuoNeb, Rocephin and her home medications, initially culture were positive for corynebacterium as well as coag-negative staph however repeat cultures are been negative likely contaminant 09/18/2023, patient seen eval examined during rounds labs reviewed medications reviewed care plan discussed, cultures from admit reviewed urine culture is positive for corynebacterium as well as coag-negative staph likely contaminant repeat cultures, have been ordered, patient remains on IV Rocephin patient sugar remains uncontrolled, patient is currently on NovoLog 15 units every before meals. As well as long-acting 40 minutes 09/17/2023, patient seen eval reexamined during the rounds labs reviewed medicat ions reviewed, shortness of breath has improved, more awake now, patient remains on IV antibiotics along with bronchodilators she is also on vitamin C high intensity statins along with Pulmicort and her home medications as well, patient continued to do well, denies any chest pain able to tolerate by mouth well, very weak in the lower extremity, in fact patient is bedbound for over a year, PT OT are evaluating the patient 09/16/2023, patient seen eval is examined, remains slightly confused, however hemodynamically stable, heart rate was slightly elevated improved with Adderall, patient was found to be hypokalemic as well but patient has been initiated on potassium replacement protocol labs from today reviewed white cell count is 10.8, hemoglobin as well as/36. Known to 35 PT/INR is 13.4/1.3 chemistry reviewed pressure 4.2 sodium is 137 BUN/creatinine is 17.5/0.5 sugar is 254 Patient is a 78-year-old year female has progressive generalized weakness for last few days also has been hypoglycemic patient has frequent urinary tract infection brought into the hospital for further evaluation patient has prior history of chronic pain syndrome and generalized anxiety disorder and peripheral neuropathy, she also has hypothyroidism on Synthroid, mood disorder depression on Lexapro, has diabetes mellitus takes to obesity as well as sliding scale insulin, and labs are significant for white cell count of 14.9 hemoglobin remained 9.3/28 and platelet count of the 291 chemistry significant for hypokalemia of dictation 3.1 BUN and creatinine within normal limit urinalysis she RBC and WBC seen large leukocyte esterase patient got a dose of Rocephin and potassium in the ER Objective - Vital Signs Vital signs: Vital Signs Temp 97.6 F 09/20/23 07:37 Pulse 90 09/20/23 08:00 Resp 16 09/20/23 08:00 BP 145/73 09/20/23 07:37 Pulse Ox 95 09/20/23 07:37 FiO2 Intake & Output 09/19/23 09/20/23 09/20/23 19:59 06:59 18:59 Output Total Balance Output: Urine Other: Voiding Method External Catheter # Voids - Exam - Constitutional General appearance: average body habitus, disheveled - EENT Eyes: EOMI, PERRLA ENT: normal oropharynx Ears: bilateral: normal - Neck Neck: normal ROM Carotids: bilateral: upstroke normal Thyroid: bilateral: normal size - Respiratory Respiratory: bilateral: CTA - Cardiovascular Rhythm: regular Heart sounds: normal: S1, S2 - Gastrointestinal General gastrointestinal: normal bowel sounds, soft - Integumentary Integumentary: normal turgor - Neurologic Neurologic: CNII-XII intact - Musculoskeletal Musculoskeletal: gait normal, generalized weakness, strength equal bilaterally - Psychiatric Psychiatric: A&O x's 3, appropriate affect, intact judgment & insight - Labs CBC & Chem 7: 09/18/23 10:43 09/18/23 10:43 Labs: Abnormal Lab Results - Last 24 Hours (Table) 09/19/23 09/19/23 09/19/23 Range/Units 12:50 17:12 21:02 PT (10.0-12.5) sec INR (<1.2) POC Glucose (mg/dL) 317 H 278 H 255 H (70-110) mg/dL 09/20/23 09/20/23 Range/Units 03:55 07:54 PT 17.5 H (10.0-12.5) sec INR 1.7 H (<1.2) POC Glucose (mg/dL) 270 H (70-110) mg/dL Microbiology - Last 24 Hours (Table) 09/18/23 11:26 Blood Culture - Preliminary Blood 09/18/23 10:43 Blood Culture - Preliminary Blood Assessment and Plan Assessment: 78-year-old female came into the hospital with likely urinary tract infection urine culture appears not to be obtained and has received his Rocephin also has hypokalemia potassium has been replaced Positive blood cultures likely contaminant, repeat cultures have been obtained Uncontrolled diabetes with hyperglycemia, insulin does being adjusted Altered mental status likely related to sepsis due to very tract infection slowly improving Sinus tachycardia related to above as well as urinary tract infection and volume depleted state, patient is back on atenolol Urinary tract infection Episode of hypoglycemia and generalized weakness Generalized anxiety disorder Chronic pain syndrome Hypothyroidism Major depression Insulin requiring diabetes mellitus Plan: Replace potassium Sinus tachycardia at in all has been resumed Continue Accu-Chek and sliding scale insulin will resume long-acting once sugar is stabilized Continue IV Rocephin Resume home medications Repeat labs tomorrow Further plan of care as per clinical response of the patient Time with Patient: Greater than 30
--- NOTE | 2023-09-21 12:16 | P.PN ---
Subjective Progress Note Date: 09/21/23 Principal diagnosis: Urinary tract infection, recurrent nature Episode of hypoglycemia and generalized weakness Generalized anxiety disorder Chronic pain syndrome Hypothyroidism Major depression Insulin requiring diabetes mellitus 09/21/2023, patient seen eval examined during rounds labs reviewed medications reviewed care plan discussed, denies any chest pain, concerned about lower extremity weakness but off note that patient has been bedbound for the last 4-5 years continue physical therapy as tolerated patient has been advised to placement in rehab she declined, blood sugars 218 patient has been on sliding scale insulin as well as Levemir 40 units we'll increase it to 45 units repeat labs tomorrow likely will be discharged in next 24-48 hours, advised rehab halima cement but again patient declined September 20 2023, patient seen and evaluated examined care plan discussed, patient sometime in pain, however she has a big bowel movement earlier, Dr. Espino has been consulted PTOT has been following patient for lower extremity weakness, patient has a recurrent urinary tract infection cultures however were not obtained prior to antibiotics ID service has been following repeat cultures are performed for drug-resistant bacteria 09/19/2023, patient seen and evaluated examined while covering for Dr. Eloy Griffin patient is awake and an alert, denies any chest pain, mild intermittent abdominal pain is present, on room air breathing comfortably, patient is garth rned about recurrent urinary tract infection infectious disease has been consulted, sugar continued to remain 200 range patient will resume on bronchodilator, I intensity statin, Pulmicort and DuoNeb, Rocephin and her home medications, initially culture were positive for corynebacterium as well as c oag-negative staph however repeat cultures are been negative likely contaminant 09/18/2023, patient seen eval examined during rounds labs reviewed medications reviewed care plan discussed, cultures from admit reviewed urine culture is positive for corynebacterium as well as coag-negative staph likely contaminant repeat cultures, have been ordered, patient remains on IV Rocephin patient sugar remains uncontrolled, patient is currently on NovoLog 15 units every before meals. As well as long-acting 40 minutes 09/17/2023, patient seen eval reexamined during the rounds labs reviewed medications reviewed, shortness of breath has improved, more awake now, patient remains on IV antibiotics along with bronchodilators she is also on vitamin C high intensity statins along with Pulmicort and her home medications as well, patient continued to do well, denies any chest pain able to tolerate by mouth well, very weak in the lower extremity, in fact patient is bedbound for over a year, PT OT are evaluating the patient 09/16/2023, patient seen dani is examined, remains slightly confused, however h emodynamically stable, heart rate was slightly elevated improved with Adderall, patient was found to be hypokalemic as well but patient has been initiated on potassium replacement protocol labs from today reviewed white cell count is 10.8, hemoglobin as well as/36. Known to 35 PT/INR is 13.4/1.3 chemistry reviewed pressure 4.2 sodium is 137 BUN/creatinine is 17.5/0.5 sugar is 254 Patient is a 78-year-old year female has progressive generalized weakness for last few days also has been hypoglycemic patient has frequent urinary tract infection brought into the hospital for further evaluation patient has prior history of chronic pain syndrome and generalized anxiety disorder and peripheral neuropathy, she also has hypothyroidism on Synthroid, mood disorder depression on Lexapro, has diabetes mellitus takes to obesity as well as sliding scale insulin, and labs are significant for white cell count of 14.9 hemoglobin remained 9.3/28 and platelet count of the 291 chemistry significant for hy pokalemia of dictation 3.1 BUN and creatinine within normal limit urinalysis she RBC and WBC seen large leukocyte esterase patient got a dose of Rocephin and potassium in the ER Objective - Vital Signs Vital signs: Vital Signs Temp 97.9 F 09/21/23 07:49 Pulse 100 09/21/23 11:49 Resp 17 09/21/23 07:49 BP 108/73 09/21/23 07:49 Pulse Ox 95 09/21/23 07:49 FiO2 Intake & Output 09/20/23 09/21/23 09/21/23 18:59 06:59 18:59 Intake Total 118 Output Total 700 650 Balance -700 -532 Intake: Oral 118 Output: Urine 700 650 Other: Voiding Method External Catheter External Catheter External Catheter - Exam - Constitutional General appearance: average body habitus, disheveled - EENT Eyes: EOMI, PERRLA ENT: normal oropharynx Ears: bilateral: normal - Neck Neck: normal ROM Carotids: bilateral: upstroke normal Thyroid: bilateral: normal size - Respiratory Respiratory: bilateral: CTA - Cardiovascular Rhythm: regular Heart sounds: normal: S1, S2 - Gastrointestinal General gastrointestinal: normal bowel sounds, soft - Integumentary Integumentary: normal turgor - Neurologic Neurologic: CNII-XII intact - Musculoskeletal Musculoskeletal: gait normal, generalized weakness, strength equal bilaterally - Psychiatric Psychiatric: A&O x's 3, appropriate affect, intact judgment & insight - Labs CBC & Chem 7: 09/18/23 10:43 09/18/23 10:43 Labs: Abnormal Lab Results - Last 24 Hours (Table) 09/20/23 09/20/23 09/21/23 Range/Units 17:33 20:20 05:28 PT 17.2 H (10.0-12.5) sec INR 1.7 H (<1.2) POC Glucose (mg/dL) 276 H 258 H (70-110) mg/dL 09/21/23 Range/Units 07:16 PT (10.0-12.5) sec INR (<1.2) POC Glucose (mg/dL) 218 H (70-110) mg/dL Microbiology - Last 24 Hours (Table) 09/18/23 11:26 Blood Culture - Preliminary Blood 09/18/23 10:43 Blood Culture - Preliminary Blood Assessment and Plan Assessment: 78-year-old female came into the hospital with likely urinary tract infection urine culture appears not to be obtained and has received his Rocephin also has hypokalemia potassium has been replaced Positive blood cultures likely contaminant, repeat cultures have been obtained Uncontrolled diabetes with hyperglycemia, insulin does being adjusted Altered mental status likely related to sepsis due to very tract infection slowly improving Sinus tachycardia related to above as well as urinary tract infection and volume depleted state, patient is back on atenolol Urinary tract infection Episode of hypoglycemia and generalized weakness Generalized anxiety disorder Chronic pain syndrome Hypothyroidism Major depression Insulin requiring diabetes mellitus Plan: Replace potassium Sinus tachycardia at in all has been resumed Continue Accu-Chek and sliding scale insulin will resume long-acting once sugar is stabilized Continue IV Rocephin Resume home medications Repeat labs tomorrow Further plan of care as per clinical response of the patient Time with Patient: Greater than 30
[2023-09-21 12:25] LABS: Glucose,Whole Blood 281 mg/dL (70-110)
[2023-09-21 16:50] LABS: Appearance,Urine Clear (Clear); Bilirubin,Urine Negative (Negative); Blood,Urine Negative (Negative); Color,Urine Colorless; Glucose,Urine (UA) 1+ (Negative); Ketones,Urine Negative (Negative); Leukocyte Esterase,Urine Negative (Negative); Nitrite,Urine Negative (Negative); PH, Urine 5.5 (5.0-8.0); Protein,Urine Negative (Negative); Specific Gravity,Urine 1.008 (1.001-1.035); Urobilinogen,Urine <2.0 mg/dL (<2.0)
[2023-09-21 17:54] LABS: Glucose,Whole Blood 294 mg/dL (70-110)
[2023-09-21] MEDS ORDERED: WARFARIN 2 MG TAB PO ONE (18:00)
[2023-09-21] MEDS: FUROSEMIDE 20 MG TAB PO SCH (18:01)
[2023-09-21] MEDS: ATORVASTATIN 10 MG TAB PO SCH (20:00)
[2023-09-21] MEDS: NORTRIPTYLINE 25 MG CAP PO SCH (20:00)
[2023-09-21 20:24] LABS: Glucose,Whole Blood 222 mg/dL (70-110)
[2023-09-21] MEDS ORDERED: INSULIN DETEMIR (LEVEMIR) 100 UNIT/ML SYR SQ SCH (21:00)
[2023-09-22] MEDS: MORPHINE SULFATE 4 MG/ML SYRINGE IV PRN (02:15)
[2023-09-22] MEDS: SODIUM CHLORIDE 0.9% 1,000 ML IV SCH ×2 (02:19→13:30)
[2023-09-22 06:19] LABS: Glucose,Whole Blood 266 mg/dL (70-110)
[2023-09-22] MEDS: INSULIN ASPART (NovoLOG) 100 UNIT/ML VIAL SQ SCH ×4 (06:33→13:27)
[2023-09-22] MEDS: PANTOPRAZOLE 40 MG TABLET PO SCH (06:33)
[2023-09-22] MEDS: LEVOTHYROXINE 75 MCG TAB PO SCH (06:33)
[2023-09-22 07:30] LABS: INR 1.8 (<1.2); Prothrombin Time 18.4 sec (10.0-12.5)
[2023-09-22] MEDS: IPRATROPIUM-ALBUTEROL 3 ML NEB INHALATION SCH ×3 (09:02→16:12)
[2023-09-22] MEDS: BUDESONIDE 0.5 MG/2 ML NEBU INHALATION SCH (09:02)
[2023-09-22] MEDS: SYMBICORT 160-4.5 MCG INHALER INHALATION SCH (09:02)
[2023-09-22] MEDS: CHOLECALCIFEROL 25 MCG (1000 IU) TABLET PO SCH (09:08)
[2023-09-22] MEDS: ASCORBIC ACID 500 MG TAB PO SCH (09:08)
[2023-09-22] MEDS: METOCLOPRAMIDE 5 MG TAB PO SCH ×2 (09:08→13:28)
[2023-09-22] MEDS: METOPROLOL SUCCINATE (ER) 50 MG TAB.ER.24H PO SCH (09:08)
[2023-09-22] MEDS: GABAPENTIN 400 MG CAP PO SCH (09:08)
[2023-09-22] MEDS: oxyCODONE-APAP 10-325MG 1 EACH TAB PO SCH ×2 (09:09→13:28)
[2023-09-22] MEDS: DILTIAZEM ORAL 60 MG TAB PO SCH ×2 (09:09→13:28)
[2023-09-22] MEDS: FUROSEMIDE 40 MG TAB PO SCH (09:09)
[2023-09-22 10:49] LABS: Basophils # (A) 0.03 X 10*3/uL (0.00-0.10); Basophils % (A) 0.4 %; Eosinophils # (A) 0.16 X 10*3/uL (0.04-0.35); HCT 29.7 % (37.2-46.3); HGB 9.4 d/dL (12.0-15.0); Lymphocytes % (A) 20.8 %; MCH 29.8 pg (27.0-32.0); MCHC 31.6 d/dL (32.0-37.0); MCV 94.3 FL (80.0-97.0); Mean Platelet Volume 10.4 FL (9.5-12.2); NRBC Per 100 WBC 0 X 10*3/uL (0.00-0.01); Neutrophils # (A) 5.29 X 10*3/uL (1.80-7.70); Neutrophils % (A) 64.8 %; Platelet Count 250 X 10*3/uL (140-440); RBC 3.15 X 10*6/uL (4.10-5.20); WBC 8.16 X 10*3/uL (4.50-10.00)
[2023-09-22 11:32] LABS: ALT 24 U/L (8-44); AST 21 U/L (13-35); Albumin 2.7 d/dL (3.8-4.9); Albumin/Globulin Ratio 1.29 Ratio (1.60-3.17); Alkaline Phosphatase 116 U/L (41-126); BUN/Creat Ratio 43.17 Ratio (12.00-20.00); Blood Urea Nitrogen 25.9 mg/dL (9.0-27.0); Calcium 8.3 mg/dL (8.7-10.3); Carbon Dioxide 32.5 mmol/L (21.6-31.8); Chloride 101 mmol/L (96-109); Globulin 2.1 d/dL (1.6-3.3); Glucose 270 mg/dL (70-110); Potassium 3.8 mmol/L (3.5-5.5); Sodium 141 mmol/L (135-145); Total Bilirubin <0.2 mg/dL (0.3-1.2); Total Protein 4.8 d/dL (6.2-8.2)
[2023-09-22 11:55] LABS: Glucose,Whole Blood 144 mg/dL (70-110)
--- NOTE | 2023-09-22 12:36 | P.PN ---
Subjective Progress Note Date: 09/22/23 Principal diagnosis: UTI and positive blood culture Patient is a 78-year-old female with a past medical history significant for diabetes mellitus fibromyalgia reflux hypertension hyperlipidemia history of bilateral heel pressure ulcer which are currently healed presenting to the hospital for evaluation of weakness no blood sugar patient did have a positive urinary symptoms concerning for UTI On today's evaluation that is 09/22/2023, the patient continues to be afebrile, the patient is breathing comfortably on 2 L nasal cannula supplemental oxygen, the patient was sleepy today and did not answer any question vomiting or diarrhea reported by the nursing staff She did have white count 8.16, creatinine 0.6, repeat UA is clear Objective - Vital Signs Vital signs: Vital Signs Temp 97.8 F 09/22/23 07:19 Pulse 96 09/22/23 09:14 Resp 17 09/22/23 07:19 BP 118/82 09/22/23 07:19 Pulse Ox 97 09/22/23 07:19 FiO2 Intake & Output 09/21/23 09/22/23 09/22/23 18:59 06:59 18:59 Output Total 1100 550 Balance -1100 -550 Weight 90.718 kg Output: Urine 1100 550 Other: Voiding Method External Catheter External Catheter External Catheter # Voids 1 - Exam GENERAL DESCRIPTION: An elderly female lying in bed in no distress RESPIRATORY SYSTEM: Unlabored breathing , clear to auscultation anteriorly HEART: S1 S2 regular rate and rhythm , ABDOMEN: Soft , no tenderness EXTREMITIES: No edema feet - Labs CBC & Chem 7: 09/22/23 06:17 09/22/23 06:17 Labs: Abnormal Lab Results - Last 24 Hours (Table) 09/21/23 09/21/23 09/21/23 Range/Units 12:18 16:37 17:52 PT (10.0-12.5) sec INR (<1.2) POC Glucose (mg/dL) 281 H 294 H (70-110) mg/dL Urine Glucose (UA) 1+ H (Negative) 09/21/23 09/22/23 09/22/23 Range/Units 20:22 06:17 06:17 PT 18.4 H (10.0-12.5) sec INR 1.8 H (<1.2) POC Glucose (mg/dL) 222 H 266 H (70-110) mg/dL Urine Glucose (UA) (Negative) Microbiology - Last 24 Hours (Table) 09/18/23 11:26 Blood Culture - Preliminary Blood 09/18/23 10:43 Blood Culture - Preliminary Blood Assessment and Plan (1) Positive blood culture Current Visit: Yes Status: Acute Code(s): R78.81 - BACTEREMIA SNOMED Code(s): 897308786 (2) UTI (urinary tract infection) Current Visit: Yes Status: Acute Code(s): N39.0 - URINARY TRACT INFECTION, SITE NOT SPECIFIED SNOMED Code(s): 25246163 Plan: 1patient was in the hospital with weakness mental status changes likely multifactorial in this patient with a history of recurrent UTI and urinary symptom positive UA, likely component of symptomatic urinary tract infection likely from enteric gram-negative breath unfortunately no urine culture ordered on initial sample on presentation to the hospital 5 days ago and the patient still complaining of some urinary symptoms of burning 2positive blood culture with Corynebacterium coagulase-negative staph likely skin contamination and no need for vancomycin 3patient repeat UA is negative indicating adequate treatment of underlying UTI no need for any antibiotics on discharge this was discussed with the patient RN apparently working on her discharge Dictation was produced using [employer] dictation software. please excuse any grammatical, word or spelling errors. Time with Patient: Less than 30
[2023-09-22 14:00] VITALS: BP 104/53; PULSE 88; RESP 16; TEMP 97.9
--- NOTE | 2023-09-22 15:34 | P.DS ---
Providers Date of admission: 09/17/23 09:20 Expected date of discharge: 09/22/23 Attending physician: Eloy Griffin Consults: 09/19/23 23:13 Consult Physician Routine Consulting Provider: Liv Gunderson Consult Reason/Comments: UTI Do you want consulting provider notified?: Yes [facility] Course: 09/22/2023, patient seen eval examined during rounds labs reviewed medications reviewed care plan discussed, patient hemodynamic status remains stable, patient remains afebrile, mental status significantly improved patient is undergoing physical therapy and rehab, patient was recommended for rehab placement but declined however she is being discharged home with home health to follow, infectious diseases have elevated to the patient no antibiotics needed patient has been treated in hospital with IV Rocephin tolerating very well no more antibiotics needed blood culture which were positive likely contaminant repeat cultures negative 09/21/2023, patient seen eval examined during rounds labs reviewed medications reviewed care plan discussed, denies any chest pain, concerned about lower extremity weakness but off note that patient has been bedbound for the last 4-5 years continue physical therapy as tolerated patient has been advised to placement in rehab she declined, blood sugars 218 patient has been on sliding scale insulin as well as Levemir 40 units we'll increase it to 45 units repeat labs tomorrow likely will be discharged in next 24-48 hours, advised rehab placement but again patient declined September 20 2023, patient seen and evaluated examined care plan discussed, patient sometime in pain, however she has a big bowel movement earlier, Dr. Espino has been consulted PTOT has been following patient for lower extremity [place], patient has a recurrent urinary tract infection cultures however were not obtained prior to antibiotics ID service has been following repeat cultures are performed for drug-resistant bacteria 09/19/2023, patient seen and evaluated examined while covering for Dr. Eloy Griffin patient is awake and an alert, denies any chest pain, mild intermittent abdominal pain is present, on room air breathing comfortably, patient is concerned about recurrent urinary tract infection infectious disease has been consulted, sugar continued to remain 200 range patient will resume on bronchodilator, I intensity statin, Pulmicort and DuoNeb, Rocephin and her home medications, initially culture were positive for corynebacterium as well as coag-negative staph however repeat cultures are been negative likely contaminant 09/18/2023, patient seen eval examined during rounds labs reviewed medications reviewed care plan discussed, cultures from admit reviewed urine culture is positive for corynebacterium as well as coag-negative staph likely contaminant repeat cultures, have been ordered, patient remains on IV Rocephin patient sugar remains uncontrolled, patient is currently on NovoLog 15 units every before meals. As well as long-acting 40 minutes 09/17/2023, patient seen evwilliam reexamined during the rounds labs reviewed medications reviewed, shortness of breath has improved, more awake now, patient remains on IV antibiotics along with bronchodilators she is also on vitamin C high intensity statins along with Pulmicort and her home medications as well, patient continued to do well, denies any chest pain able to tolerate by mouth well, very weak in the lower extremity, in fact patient is bedbound for over a year, PT OT are evaluating the patient 09/16/2023, patient seen evwilliam is examined, remains slightly confused, however hemodynamically stable, heart rate was slightly elevated improved with Adderall, patient was found to be hypokalemic as well but patient has been initiated on potassium replacement protocol labs from today reviewed white cell count is 10.8, hemoglobin as well as/36. Known to 35 PT/INR is 13.4/1.3 chemistry reviewed pressure 4.2 sodium is 137 BUN/creatinine is 17.5/0.5 sugar is 254 Patient is a 78-year-old year female has progressive generalized weakness for last few days also has been hypoglycemic patient has frequent urinary tract infection brought into the hospital for further evaluation patient has prior history of chronic pain syndrome and generalized anxiety disorder and peripheral neuropathy, she also has hypothyroidism on Synthroid, mood disorder depression on Lexapro, has diabetes mellitus takes to obesity as well as sliding scale insulin, and labs are significant for white cell count of 14.9 hemoglobin remained 9.3/28 and platelet count of the 291 chemistry significant for hypokalemia of dictation 3.1 BUN and creatinine within normal limit urinalysis she RBC and WBC seen large leukocyte esterase patient got a dose of Rocephin and potassium in the ER Assessment: Urinary tract infection, recurrent nature Episode of hypoglycemia and generalized weakness Generalized anxiety disorder Chronic pain syndrome Hypothyroidism Major depression Insulin requiring diabetes mellitus Patient Condition at Discharge: Fair Plan - Discharge Summary Discharge Rx Participant: No New Discharge Prescriptions: No Action oxyCODONE-APAP 10-325MG [Percocet 10-325 mg] 1 tab PO QID ALPRAZolam [Xanax] 0.5 mg PO BID PRN PRN Reason: Anxiety Levothyroxine Sodium 150 mcg PO DAILY Warfarin [Coumadin] 2.5 mg PO HS #0 Metoprolol Succinate (ER) [Toprol XL] 50 mg PO DAILY 90 Days #90 tab.er.24h Furosemide [Lasix] 40 mg PO DAILY Ipratropium-Albuterol Nebulize [Duoneb 0.5 mg-3 mg/3 ml Soln] 3 ml INHALATION RT-QID Nortriptyline [Pamelor] 25 mg PO HS Metoclopramide HCl [Reglan] 5 mg PO QID Tirzepatide [Mounjaro] 2.5 mg SQ WE Lactobacillus Acidophilus [Acidophilus Probiotic] 1 cap PO BID dilTIAZem HCL 60 mg PO QID Budesonide [Pulmicort] 0.5 mg INHALATION RT-BID Furosemide [Lasix] 20 mg PO AC-SUPPER Insulin Glargine,Hum.rec.anlog [Lantus Solostar Pen] 40 units SQ HS Omeprazole [PriLOSEC] 40 mg PO BID Fluticasone Propion/Salmeterol [Wixela 500-50 Inhub] 1 puff INHALATION RT-BID Sennosides [Senokot] 17.2 mg PO DAILY PRN PRN Reason: Constipation predniSONE [Deltasone] 20 mg PO DAILY polyethylene glycoL 3350 [Miralax] 17 gm PO DAILY methocarbamoL 500 mg PO TID PRN PRN Reason: Muscle Spasm metFORMIN HCL [Glucophage] 500 mg PO BID Atorvastatin [Lipitor] 10 mg PO HS Gabapentin [Neurontin] 800 mg PO TID INSULIN LISPRO (HumaLOG) [humaLOG] See Protocol SQ ACHS INSULIN LISPRO (HumaLOG) [humaLOG] 15 units SQ AC-TID Cholecalciferol [Vitamin D3 (25 Mcg = 1000 Iu)] 50 mcg PO DAILY Ascorbic Acid [Vitamin C] 500 mg PO DAILY Discharge Medication List oxyCODONE-APAP 10-325MG [Percocet 10-325 mg] 1 tab PO QID 10/25/15 [History] ALPRAZolam [Xanax] 0.5 mg PO BID PRN 08/27/17 [History] Levothyroxine Sodium 150 mcg PO DAILY 10/01/19 [History] Warfarin [Coumadin] 2.5 mg PO HS #0 11/28/19 [Rx] Metoprolol Succinate (ER) [Toprol XL] 50 mg PO DAILY 90 Days #90 tab.er.24h 12/10/20 [Rx] Ascorbic Acid [Vitamin C] 500 mg PO DAILY 09/15/23 [History] Atorvastatin [Lipitor] 10 mg PO HS 09/15/23 [History] Budesonide [Pulmicort] 0.5 mg INHALATION RT-BID 09/15/23 [History] Cholecalciferol [Vitamin D3 (25 Mcg = 1000 Iu)] 50 mcg PO DAILY 09/15/23 [History] Fluticasone Propion/Salmeterol [Wixela 500-50 Inhub] 1 puff INHALATION RT-BID 09/15/23 [History] Furosemide [Lasix] 20 mg PO AC-SUPPER 09/15/23 [History] Furosemide [Lasix] 40 mg PO DAILY 09/15/23 [History] Gabapentin [Neurontin] 800 mg PO TID 09/15/23 [History] INSULIN LISPRO (HumaLOG) [humaLOG] 15 units SQ AC-TID 09/15/23 [History] INSULIN LISPRO (HumaLOG) [humaLOG] See Protocol SQ ACHS 09/15/23 [History] Insulin Glargine,Hum.rec.anlog [Lantus Solostar Pen] 40 units SQ HS 09/15/23 [History] Ipratropium-Albuterol Nebulize [Duoneb 0.5 mg-3 mg/3 ml Soln] 3 ml INHALATION RT-QID 09/15/23 [History] Lactobacillus Acidophilus [Acidophilus Probiotic] 1 cap PO BID 09/15/23 [History] Metoclopramide HCl [Reglan] 5 mg PO QID 09/15/23 [History] Nortriptyline [Pamelor] 25 mg PO HS 09/15/23 [History] Omeprazole [PriLOSEC] 40 mg PO BID 09/15/23 [History] Sennosides [Senokot] 17.2 mg PO DAILY PRN 09/15/23 [History] Tirzepatide [Mounjaro] 2.5 mg SQ WE 09/15/23 [History] dilTIAZem HCL 60 mg PO QID 09/15/23 [History] metFORMIN HCL [Glucophage] 500 mg PO BID 09/15/23 [History] methocarbamoL 500 mg PO TID PRN 09/15/23 [History] polyethylene glycoL 3350 [Miralax] 17 gm PO DAILY 09/15/23 [History] predniSONE [Deltasone] 20 mg PO DAILY 09/15/23 [History] Follow up Appointment(s)/Referral(s): Eloy Griffin MD [Primary Care Provider] - 1-2 days
[2023-09-22] MEDS ORDERED: WARFARIN 2 MG TAB PO ONE (18:00)
== END 2023-09-22 18:50 | disposition home health service (06) | DRG 871 ==
LOC: EC 20:38 → 6NMEDSUR 09-15 00:18 → OBSVTOIN 09-17 09:20
PROVIDERS: ADMIT Family Medicine; ATTEND Family Medicine
DX: A41.9 Sepsis, unspecified organism (principal); D66 Hereditary factor VIII deficiency; G93.41 Metabolic encephalopathy; N39.0 Urinary tract infection, site not specified; E11.51 Type 2 diabetes mellitus with diabetic peripheral angiopathy without gangrene; E11.42 Type 2 diabetes mellitus with diabetic polyneuropathy; E11.65 Type 2 diabetes mellitus with hyperglycemia; Z79.4 Long term (current) use of insulin; E89.0 Postprocedural hypothyroidism; I10 Essential (primary) hypertension; E78.5 Hyperlipidemia, unspecified; E87.6 Hypokalemia; E86.9 Volume depletion, unspecified; E66.9 Obesity, unspecified; Z68.34 Body mass index [BMI] 34.0-34.9, adult; R32 Unspecified urinary incontinence; F41.1 Generalized anxiety disorder; F32.9 Major depressive disorder, single episode, unspecified; G89.4 Chronic pain syndrome; K21.9 Gastro-esophageal reflux disease without esophagitis; M79.7 Fibromyalgia; M19.90 Unspecified osteoarthritis, unspecified site; M48.56XS Collapsed vertebra, not elsewhere classified, lumbar region, sequela of fracture; M21.371 Foot drop, right foot; M21.372 Foot drop, left foot; Z79.51 Long term (current) use of inhaled steroids; Z87.440 Personal history of urinary (tract) infections; Z79.890 Hormone replacement therapy; Z79.84 Long term (current) use of oral hypoglycemic drugs; Z79.01 Long term (current) use of anticoagulants; Z79.899 Other long term (current) drug therapy; Z86.73 Personal history of transient ischemic attack (TIA), and cerebral infarction without residual deficits; Z85.850 Personal history of malignant neoplasm of thyroid; Z87.442 Personal history of urinary calculi; Z96.651 Presence of right artificial knee joint; Z86.19 Personal history of other infectious and parasitic diseases; Z86.14 Personal history of Methicillin resistant Staphylococcus aureus infection; Z74.01 Bed confinement status; Z88.8 Allergy status to other drugs, medicaments and biological substances; Z71.3 Dietary counseling and surveillance
CPT/HCPCS: 36415; 51702; 71045; 80048; 80051; 80053; 80076; 81001; 81003; 82565; 83735; 84100; 84443; 84520; 85025; 85027; 85610; 87040; 94640; 96365; 96375; 96376; 99285

== ENCOUNTER 2023-10-01 14:22 | Inpatient (IN) | payer MEDICARE ==
--- NOTE | 2023-10-01 15:25 | ED ---
Wound/Laceration HPI - General Chief Complaint: Wound/Laceration Stated Complaint: Leg Wound Time Seen by Provider: 10/01/23 15:12 Source: patient, EMS, RN notes reviewed Mode of arrival: EMS Limitations: no limitations - History of Present Illness Initial Comments: Patient is a 78-year-old female presented to ER via EMS with a chief complaint of a leg wound. Patient has a past medical history of diabetes, COPD, CHF. Patient states that her home visiting nurse noticed a wound on her right leg and stated it was draining today. Nurse instructed her to come to ER for evaluation. Patient also admits that her bilateral lower extremities are more swollen than normal. Patient did have an episode of shortness of breath and route but denies any shortness of breath currently. Patient is on 2.5 L of oxygen at home and currently. Patient also describes that she is having decreased urine output. Patient states she does have a headache currently but denies any double or blurry vision, URI symptoms, chest pain, constipation/diarrhea, fevers or chills. - Related Data Home Medications Medication Instructions Recorded Confirmed oxyCODONE-APAP 10-325MG [Percocet 1 tab PO QID 10/25/15 09/15/23 10-325 mg] ALPRAZolam [Xanax] 0.5 mg PO BID PRN 08/27/17 09/15/23 Levothyroxine Sodium 150 mcg PO DAILY 10/01/19 09/15/23 Ascorbic Acid [Vitamin C] 500 mg PO DAILY 09/15/23 09/15/23 Atorvastatin [Lipitor] 10 mg PO HS 09/15/23 09/15/23 Budesonide [Pulmicort] 0.5 mg INHALATION RT-BID 09/15/23 09/15/23 Cholecalciferol [Vitamin D3 (25 50 mcg PO DAILY 09/15/23 09/15/23 Mcg = 1000 Iu)] Fluticasone Propion/Salmeterol 1 puff INHALATION RT-BID 09/15/23 09/15/23 [Wixela 500-50 Inhub] Furosemide [Lasix] 20 mg PO AC-SUPPER 09/15/23 09/15/23 Furosemide [Lasix] 40 mg PO DAILY 09/15/23 09/15/23 Gabapentin [Neurontin] 800 mg PO TID 09/15/23 09/15/23 INSULIN LISPRO (HumaLOG) [humaLOG] 15 units SQ AC-TID 09/15/23 09/15/23 INSULIN LISPRO (HumaLOG) [humaLOG] See Protocol SQ ACHS 09/15/23 09/15/23 Insulin Glargine,Hum.rec.anlog 40 units SQ HS 09/15/23 09/15/23 [Lantus Solostar Pen] Ipratropium-Albuterol Nebulize 3 ml INHALATION RT-QID 09/15/23 09/15/23 [Duoneb 0.5 mg-3 mg/3 ml Soln] Lactobacillus Acidophilus 1 cap PO BID 09/15/23 09/15/23 [Acidophilus Probiotic] Metoclopramide HCl [Reglan] 5 mg PO QID 09/15/23 09/15/23 Nortriptyline [Pamelor] 25 mg PO HS 09/15/23 09/15/23 Omeprazole [PriLOSEC] 40 mg PO BID 09/15/23 09/15/23 Sennosides [Senokot] 17.2 mg PO DAILY PRN 09/15/23 09/15/23 Tirzepatide [Mounjaro] 2.5 mg SQ WE 09/15/23 09/15/23 dilTIAZem HCL 60 mg PO QID 09/15/23 09/15/23 metFORMIN HCL [Glucophage] 500 mg PO BID 09/15/23 09/15/23 methocarbamoL 500 mg PO TID PRN 09/15/23 09/15/23 polyethylene glycoL 3350 [Miralax] 17 gm PO DAILY 09/15/23 09/15/23 predniSONE [Deltasone] 20 mg PO DAILY 09/15/23 09/15/23 Previous Rx's Medication Instructions Recorded Warfarin [Coumadin] 2.5 mg PO HS #0 11/28/19 Metoprolol Succinate (ER) [Toprol 50 mg PO DAILY 90 Days #90 12/10/20 XL] tab.er.24h Allergies Allergy/AdvReac Type Severity Reaction Status Date / Time nickel [Nickel] Allergy Rash/Hives Verified 09/15/23 10:40 adhesive tape AdvReac blister Verified 09/15/23 10:40 duloxetine HCl AdvReac Hallucinati Verified 09/15/23 10:40 [From Cymbalta] ons sertraline HCl [From Zoloft] AdvReac Hallucinati Verified 09/15/23 10:40 ons vortioxetine hydrobromide AdvReac Hallucinati Verified 09/15/23 10:40 [From Brintellix] ons Review of Systems ROS Statement: Those systems with pertinent positive or pertinent negative responses have been documented in the HPI. ROS Other: All systems not noted in ROS Statement are negative. Past Medical History Past Medical History: Blood Disorder, Cancer, CVA/TIA, Diabetes Mellitus, Fibromyalgia, GERD/Reflux, Hyperlipidemia, Osteoarthritis (OA), Renal Disease, Syncope, Thyroid Disorder, Vascular Disorder Additional Past Medical History / Comment(s): with L5 compression fracture and L3 indetermined age compression fracture, bilateral lower extremity weakness, bilateral foot drop. 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 History of Any Multi-Drug Resistant Organisms: MRSA, VRE, VRE Date of last positivie culture/infection: 2008 R knee per pt MDRO Source:: 03/03/16 L foot Past Surgical History: Adenoidectomy, Appendectomy, Bowel Resection, Cholecystectomy, Hysterectomy, Joint Replacement, Orthopedic Surgery, Tonsillectomy Additional Past Surgical History / Comment(s): 10/26/15 suspension microlarygoscopy with benign bx, thyroidectomy, right TKA with infection-I&D then a revision, left ankle surgery WITH HARDWARE, 2 BOWEL SURGERIES, ORIF rt hip-07/2015, bilateral carpal tunnel releases, 1997 cardiac cath-normal, bilateral heel debridements, COLONOSCOPY, R flank "blood tumor" removed, bilateral cataract removals Past Anesthesia/Blood Transfusion Reactions: Postoperative Nausea & Vomiting (PONV) Additional Past Anesthesia/Blood Transfusion Reaction / Comment(s): Pt received blood after ORIF of the hip surgery Past Psychological History: Anxiety, Depression Smoking Status: Never smoker Past Alcohol Use History: None Reported Past Drug Use History: None Reported - Past Family History Father Family Medical History: Dementia Additional Family Medical History / Comment(s): Father of dementia at the age of 91 yrs. Mother Family Medical History: Osteoarthritis (OA), Renal Disease Additional Family Medical History / Comment(s): Mother after kidney stone surgery and went to longterm. She was 90 yrs. old. General Exam Limitations: no limitations General appearance: alert, in no apparent distress Respiratory exam: Present: normal lung sounds bilaterally. Absent: respiratory distress, wheezes, rales, rhonchi, stridor Cardiovascular Exam: Present: regular rate, normal rhythm, normal heart sounds. Absent: systolic murmur, diastolic murmur, rubs, gallop, clicks GI/Abdominal exam: Present: soft, normal bowel sounds. Absent: distended, tenderness, guarding, rebound, rigid Extremities exam: Present: normal inspection, normal capillary refill, other (2+ pretibial pitting edema noted bilaterally) Neurological exam: Present: alert, oriented X3, CN II-XII intact Psychiatric exam: Present: normal affect, normal mood Skin exam: Present: other (wound central granulation tissue noted on right lateral brooks. No drainage noted.) Course Vital Signs 10/01/23 10/01/23 14:45 17:00 Temperature 98.5 F Pulse Rate 105 H 68 Respiratory 18 18 Rate Blood Pressure 137/63 136/87 O2 Sat by Pulse 99 96 Oximetry Medical Decision Making - Medical Decision Making Was pt. sent in by a medical professional or institution (, PA, [employer], urgent care, hospital, or longterm...) When possible be specific @ -No Did you speak to anyone other than the patient for history (EMS, parent, family, police, friend...)? What history was obtained from this source @ -No Did you review nursing and triage notes (agree or disagree)? Why? @ -I reviewed and agree with nursing and triage notes Were old charts reviewed (outside hosp., previous admission, EMS record, old EKG, old radiological studies, urgent care reports/EKG's, longterm records)? Report findings @ -No old charts were reviewed Differential Diagnosis (chest pain, altered mental status, abdominal pain women, abdominal pain men, vaginal bleeding, weakness, fever, dyspnea, syncope, headache, dizziness, GI bleed, back pain, seizure, CVA, palpatations, mental health, musculoskeletal)? @ -Differential Musculoskeletal Muscular strain, contusion, ligament sprain, fracture, arthritis, septic arthritis, bursitis, cellulitis, muscle spasm, nerve compression, DVT, arterial occlusion, herpes zoster, electrolyte abnormality, tumor.... This is not meant to be in all inclusive list EKG interpreted by me (3pts min.). @ -As above X-rays interpreted by me (1pt min.). @ -X-rays obtained of the chest showed no acute cardiopulmonary process. X-ray significant for right tib-fib showed no gas information and soft tissues. CT interpreted by me (1pt min.). @ -None done U/S interpreted by me (1pt. min.). @ -None done What testing was considered but not performed or refused? (CT, X-rays, U/S, labs)? Why? @ -None What meds were considered but not given or refused? Why? @ -None Did you discuss the management of the patient with other professionals (professionals i.e. , PA, [employer], lab, RT, psych nurse, aids social worker, natural resource manager, teacher, naval gunfire liaison officer, lead case manager)? Give summary @ -Yes, Dr. Griffin for admission. Was smoking cessation discussed for >3mins.? @ -No Was critical care preformed (if so, how long)? @ -No Were there social determinants of health that impacted care today? How? (Homelessness, low income, unemployed, alcoholism, drug addiction, transportation, low edu. Level, literacy, decrease access to med. care, prison, rehab)? @ -No Was there de-escalation of care discussed even if they declined (Discuss DNR or withdrawal of care, Hospice)? DNR status @ -No What co-morbidities impacted this encounter? (DM, HTN, Smoking, COPD, CAD, Cancer, CVA, ARF, Chemo, Hep., AIDS, mental health diagnosis, sleep apnea, morbid obesity)? @ -COPD, diabetes mellitus, CHF Was patient admitted / discharged? Hospital course, mention meds given and route, prescriptions, significant lab abnormalities, going to OR and other pertinent info. @ -Admitted. On examination, a right lateral brooks wound is noted. No purlent drainage is noted. There is surrounding erythema present. Labs obtained in the ER were significant for WBC 12.7, lactic 2.5, Hgb 10.6, K+ 3.3 and Na+ 135. X- rays obtained of the chest showed no acute cardiopulmonary process. X-ray significant for right tib-fib showed no gas information and soft tissues. Nurse spoke with family who stated she is not bed bound at home but chooses not to move from bed. They also report she is not taking care of herself at home and they would like her to be placed in a facility for care/rehab. I spoke with Dr. Griffin for admission. Patient will be admitted for further care. Social work and PT/OT will be consulted. Patient expressed understanding and agreement with care plan. Undiagnosed new problem with uncertain prognosis? @ -No Drug Therapy requiring intensive monitoring for toxicity (Heparin, Nitro, Insulin, Cardizem)? @ -No Were any procedures done? @ -No Diagnosis/symptom? @ -Leg wound Acute, or Chronic, or Acute on Chronic? @ -Acute Uncomplicated (without systemic symptoms) or Complicated (systemic symptoms)? @ -Uncomplicated Side effects of treatment? @ -No Exacerbation, Progression, or Severe Exacerbation? @ -No Poses a threat to life or bodily function? How? (Chest pain, [place], [place], pneumonia, PE, COPD, DKA, ARF, appy, cholecystitis, CVA, Diverticulitis, Homicidal, Suicidal, threat to staff... and all critical care pts) @ -No - Lab Data Result diagrams: 10/01/23 16:17 10/01/23 16:17 Lab Results 10/01/23 10/01/23 10/01/23 Range/Units 16:17 16:17 16:17 WBC 12.7 H (3.8-10.6) k/uL RBC 3.57 L (3.80-5.40) m/uL Hgb 10.6 L (11.4-16.0) gm/dL Hct 32.9 L (34.0-46.0) % MCV 92.3 D (80.0-100.0) fL MCH 29.6 (25.0-35.0) pg MCHC 32.1 (31.0-37.0) g/dL RDW 15.6 H (11.5-15.5) % Plt Count 398 D (150-450) k/uL MPV 9.3 Hypochromasia Slight Sodium 135 L (137-145) mmol/L Potassium 3.3 L (3.5-5.1) mmol/L Chloride 95 L (98-107) mmol/L Carbon Dioxide 34 H (22-30) mmol/L Anion Gap 6 mmol/L BUN 17 (7-17) mg/dL Creatinine 0.64 (0.52-1.04) mg/dL Est GFR (CKD-EPI)AfAm >90 (>60 ml/min/1.73 sqM) Est GFR (CKD-EPI)NonAf 86 (>60 ml/min/1.73 sqM) Glucose 96 (74-99) mg/dL Plasma Lactic Acid Thanh 2.5 H* (0.7-2.0) mmol/L Calcium 7.9 L (8.4-10.2) mg/dL Total Bilirubin 0.4 (0.2-1.3) mg/dL AST 24 (14-36) U/L ALT 17 (4-34) U/L Alkaline Phosphatase 92 (38-126) U/L C-Reactive Protein 5.1 H (<1.0) mg/dL NT-Pro-B Natriuret Pep 105 pg/mL Total Protein 5.3 L (6.3-8.2) g/dL Albumin 2.6 L (3.5-5.0) g/dL Urine Color Urine Appearance (Clear) Urine pH (5.0-8.0) Ur Specific [place] (1.001-1.035) Urine Protein (Negative) Urine Glucose (UA) (Negative) Urine Ketones (Negative) Urine Blood (Negative) Urine Nitrite (Negative) Urine Bilirubin (Negative) Urine Urobilinogen (<2.0) mg/dL Ur Leukocyte Esterase (Negative) 10/01/23 Range/Units 18:22 WBC (3.8-10.6) k/uL RBC (3.80-5.40) m/uL Hgb (11.4-16.0) gm/dL Hct (34.0-46.0) % MCV (80.0-100.0) fL MCH (25.0-35.0) pg MCHC (31.0-37.0) g/dL RDW (11.5-15.5) % Plt Count (150-450) k/uL MPV Hypochromasia Sodium (137-145) mmol/L Potassium (3.5-5.1) mmol/L Chloride (98-107) mmol/L Carbon Dioxide (22-30) mmol/L Anion Gap mmol/L BUN (7-17) mg/dL Creatinine (0.52-1.04) mg/dL Est GFR (CKD-EPI)AfAm (>60 ml/min/1.73 sqM) Est GFR (CKD-EPI)NonAf (>60 ml/min/1.73 sqM) Glucose (74-99) mg/dL Plasma Lactic Acid Thanh (0.7-2.0) mmol/L Calcium (8.4-10.2) mg/dL Total Bilirubin (0.2-1.3) mg/dL AST (14-36) U/L ALT (4-34) U/L Alkaline Phosphatase (38-126) U/L C-Reactive Protein (<1.0) mg/dL NT-Pro-B Natriuret Pep pg/mL Total Protein (6.3-8.2) g/dL Albumin (3.5-5.0) g/dL Urine Color Colorless Urine Appearance Clear (Clear) Urine pH 5.5 (5.0-8.0) Ur Specific [place] 1.011 (1.001-1.035) Urine Protein Negative (Negative) Urine Glucose (UA) Negative (Negative) Urine Ketones Negative (Negative) Urine Blood Negative (Negative) Urine Nitrite Negative (Negative) Urine Bilirubin Negative (Negative) Urine Urobilinogen <2.0 (<2.0) mg/dL Ur Leukocyte Esterase Negative (Negative) - Radiology Data Radiology results: report reviewed, image reviewed Disposition Clinical Impression: Leg wound, right Disposition: ADMITTED IP TO THIS [facility] Condition: Stable Referrals: Eloy Griffin MD [Primary Care Provider] - 1-2 days Time of Disposition: 19:08
--- NOTE | 2023-10-01 16:18 | XR ---
EXAMINATION TYPE: XR chest 2V DATE OF EXAM: 10/01/2023 COMPARISON: 09/14/2023 HISTORY: Shortness of breath TECHNIQUE: Frontal and lateral views of the chest are obtained. FINDINGS: Scattered senescent parenchymal changes noted. Hyperinflation compatible with COPD. No evidence for infiltrate. No evidence for atelectasis. Heart size is stable. Mediastinal structures are stable and grossly unremarkable. No evidence for hilar prominence. Degenerative changes dorsal spine. IMPRESSION: 1. No evidence for acute pulmonary disease.
--- NOTE | 2023-10-01 16:23 | XR ---
EXAMINATION TYPE: XR tibia fibula RT DATE OF EXAM: 10/01/2023 CLINICAL HISTORY: pain TECHNIQUE: AP and lateral images of the right tibia and fibula are obtained. COMPARISON: None. FINDINGS: Postoperative changes total knee arthroplasty. Chronic deformity distal tibia. Underlying c ystic change distal tibia medially. Vascular calcifications seen. No definite acute displaced fractur e seen. Calcaneal spurring. IMPRESSION: There is no acute fracture or dislocation seen. ICD 10 NO FRACTURE, INITIAL EVALUATION
[2023-10-01 17:26] LABS: HCT 32.9 % (34.0-46.0); HGB 10.6 gm/dL (11.4-16.0); Hypochromasia Slight; MCH 29.6 pg (25.0-35.0); MCHC 32.1 g/dL (31.0-37.0); Mean Platelet Volume 9.3; RBC 3.57 m/uL (3.80-5.40); RDW 15.6 % (11.5-15.5); WBC 12.7 k/uL (3.8-10.6)
[2023-10-01 17:33] LABS: MCV 92.3 fL (80.0-100.0); Platelet Count 398 k/uL (150-450)
[2023-10-01 17:55] LABS: ALT 17 U/L (4-34); AST 24 U/L (14-36); African American GFR (CKD) >90 (>60 ml/min/1.73 sqM); Albumin 2.6 g/dL (3.5-5.0); Alkaline Phosphatase 92 U/L (38-126); Anion Gap 6 mmol/L; Blood Urea Nitrogen 17 mg/dL (7-17); C Reactive Protein 5.1 mg/dL (<1.0); Calcium 7.9 mg/dL (8.4-10.2); Carbon Dioxide 34 mmol/L (22-30); Chloride 95 mmol/L (98-107); Glucose 96 mg/dL (74-99); Non-African American GFR(CKD) 86 (>60 ml/min/1.73 sqM); Potassium 3.3 mmol/L (3.5-5.1); Sodium 135 mmol/L (137-145); Total Bilirubin 0.4 mg/dL (0.2-1.3); Total Protein 5.3 g/dL (6.3-8.2)
[2023-10-01 18:00] LABS: NT-Pro-B-Type Natriuretic Pept 105 pg/mL
[2023-10-01 18:36] LABS: Appearance,Urine Clear (Clear); Bilirubin,Urine Negative (Negative); Blood,Urine Negative (Negative); Color,Urine Colorless; Glucose,Urine (UA) Negative (Negative); Ketones,Urine Negative (Negative); Leukocyte Esterase,Urine Negative (Negative); Nitrite,Urine Negative (Negative); PH, Urine 5.5 (5.0-8.0); Protein,Urine Negative (Negative); Specific Gravity,Urine 1.011 (1.001-1.035); Urobilinogen,Urine <2.0 mg/dL (<2.0)
[2023-10-01] MEDS ORDERED: NALOXONE 0.4 MG/ML 1 ML VIAL IV PRN (18:57)
[2023-10-01] MEDS: ATORVASTATIN 10 MG TAB PO SCH (20:28)
[2023-10-01] MEDS: PANTOPRAZOLE 40 MG TABLET PO SCH (20:28)
[2023-10-01] MEDS: GABAPENTIN 400 MG CAP PO SCH (21:39)
[2023-10-02 00:29] LABS: INR 2.8 (<1.2); Prothrombin Time 27.3 sec (10.0-12.5)
[2023-10-02] MEDS ORDERED: WARFARIN 2.5 MG TAB PO ONE (00:45)
[2023-10-02 02:37] LABS: Erythrocyte Sedimentation Rate 77 mm/Hr (0-30)
[2023-10-02] MEDS: LEVOTHYROXINE 75 MCG TAB PO SCH (05:49)
[2023-10-02] MEDS: oxyCODONE-APAP 10-325MG 1 EACH TAB PO PRN ×3 (06:32→21:26)
[2023-10-02 07:09] LABS: INR 2.1 (<1.2); Prothrombin Time 21.3 sec (10.0-12.5)
[2023-10-02] MEDS: PANTOPRAZOLE 40 MG TABLET PO SCH ×2 (08:51→21:23)
[2023-10-02] MEDS: FUROSEMIDE 40 MG TAB PO SCH (08:51)
[2023-10-02] MEDS: METOPROLOL SUCCINATE (ER) 50 MG TAB.ER.24H PO SCH (08:51)
[2023-10-02] MEDS: GABAPENTIN 400 MG CAP PO SCH ×3 (08:51→21:23)
[2023-10-02 17:17] LABS: Glucose,Whole Blood 203 mg/dL (70-110)
[2023-10-02] MEDS: PIPERACILLIN-TAZOBACTAM 3.375 GM in SODIUM CHLORIDE 0.9% 100 ML IVPB SCH ×2 (17:44→23:28)
[2023-10-02] MEDS ORDERED: WARFARIN 2.5 MG TAB PO SCH (18:00)
[2023-10-02] MEDS: ATORVASTATIN 10 MG TAB PO SCH (21:23)
[2023-10-02 21:49] LABS: Glucose,Whole Blood 320 mg/dL (70-110)
[2023-10-03] MEDS: LEVOTHYROXINE 75 MCG TAB PO SCH (06:11)
[2023-10-03 06:32] LABS: Glucose,Whole Blood 200 mg/dL (70-110)
[2023-10-03 07:42] LABS: INR 3.3 (<1.2); Prothrombin Time 32.3 sec (10.0-12.5)
[2023-10-03] MEDS ORDERED: DEXTROSE 50% SYRINGE 50 ML IVP PRN ×2 (07:45)
[2023-10-03] MEDS: oxyCODONE-APAP 10-325MG 1 EACH TAB PO PRN ×3 (08:35→22:18)
[2023-10-03] MEDS: METOPROLOL SUCCINATE (ER) 50 MG TAB.ER.24H PO SCH (08:35)
[2023-10-03] MEDS: PANTOPRAZOLE 40 MG TABLET PO SCH ×2 (08:35→21:23)
[2023-10-03] MEDS: GABAPENTIN 400 MG CAP PO SCH (08:35)
[2023-10-03] MEDS: PIPERACILLIN-TAZOBACTAM 3.375 GM in SODIUM CHLORIDE 0.9% 100 ML IVPB SCH (08:36)
[2023-10-03] MEDS: FUROSEMIDE 40 MG TAB PO SCH (08:36)
[2023-10-03 10:01] LABS: HCT 34.1 % (34.0-46.0); HGB 10.8 gm/dL (11.4-16.0); Hypochromasia Moderate; MCHC 31.6 g/dL (31.0-37.0); MCV 95.1 fL (80.0-100.0); Platelet Count 381 k/uL (150-450); RBC 3.59 m/uL (3.80-5.40); WBC 8.7 k/uL (3.8-10.6)
[2023-10-03 10:09] LABS: African American GFR (CKD) >90 (>60 ml/min/1.73 sqM); Blood Urea Nitrogen 13 mg/dL (7-17); Calcium 7.9 mg/dL (8.4-10.2); Chloride 92 mmol/L (98-107); Glucose 304 mg/dL (74-99); Non-African American GFR(CKD) >90 (>60 ml/min/1.73 sqM); Potassium 3.8 mmol/L (3.5-5.1); Sodium 135 mmol/L (137-145)
[2023-10-03 10:16] LABS: Anion Gap 9 mmol/L; Carbon Dioxide 34 mmol/L (22-30)
[2023-10-03 12:34] VITALS: BMI 41.1
[2023-10-03 12:35] LABS: Glucose,Whole Blood 400 mg/dL (70-110)
[2023-10-03] MEDS: INSULIN ASPART (NovoLOG) 100 UNIT/ML VIAL SQ SCH ×3 (12:50→21:24)
[2023-10-03] MEDS ORDERED: methocarbamoL 500 MG TAB PO PRN (13:06)
[2023-10-03] MEDS ORDERED: ALPRAZolam 0.5 MG TAB PO PRN (13:06)
[2023-10-03] MEDS: IPRATROPIUM-ALBUTEROL 3 ML NEB INHALATION SCH ×2 (15:50→20:54)
[2023-10-03 16:31] LABS: Glucose,Whole Blood 334 mg/dL (70-110)
[2023-10-03] MEDS: METOCLOPRAMIDE 5 MG TAB PO SCH ×2 (16:47→21:23)
[2023-10-03] MEDS: DILTIAZEM ORAL 60 MG TAB PO SCH ×2 (16:47→21:23)
[2023-10-03] MEDS: GABAPENTIN 300 MG CAP PO SCH ×2 (16:47→21:24)
[2023-10-03] MEDS: FUROSEMIDE 20 MG TAB PO SCH (16:47)
--- NOTE | 2023-10-03 16:52 | PN ---
PROGRESS NOTE DATE OF SERVICE: 10/03/2023 SUBJECTIVE: White female. Her sugars are running high. We are going to restart her on all her oral home medications. Dr. Gunderson placed her on IV cefazolin. OBJECTIVE: CARDIOVASCULAR: S1 and S2. LUNGS: Clear. GI: Soft. HEMATOLOGY: Negative Homans. PSYCHIATRIC: Fair mood and affect. NEUROLOGIC: Alert and oriented x3. VITAL SIGNS: Saturating 100% on 3 L. Blood pressure is 145/83. Pulse is 102. Respiratory rate is 16 to 18. Temperature 98. PLAN: Continue current treatment. Follow up in the next 24 to 48 hours for possible discharge pending cultures and Dr. Gunderson's recommendations. MMODL / IJN: [id number] /
[2023-10-03] MEDS ORDERED: WARFARIN 0.5 MG TAB PO ONE (18:00)
--- NOTE | 2023-10-03 18:58 | HP ---
HISTORY AND PHYSICAL HISTORY OF PRESENT ILLNESS: A 78-year-old white female, past medical history of diabetes, COPD, and CHF, had a wound on the right leg that was draining today, came to the ER for worsening wound on the right lateral leg. She is admitted for diabetic wound infection. She has COPD, CHF, severe osteoarthritis, degenerative disk disease, and history of hip fracture, which has limited her movement. HOME MEDICATIONS: 1. She takes Percocet 10 for pain q.i.d. 2. b.i.d. 3. Levothyroxine 150 daily. 4. Lipitor 10 mg daily. 5. Pulmicort 0.5 b.i.d. 6. Vitamin D daily. 7. She takes Wixela 50/500 b.i.d. 8. Lasix 40 mg in the morning and 20 at afternoon. 9. Gabapentin 800 t.i.d. 10.She takes Humalog 15 units a.c. t.i.d., and 40 units of Lantus at night. 11.DuoNeb q.i.d. 12.Reglan 5 q.i.d. 13.Pamelor 25 daily. 14.Prilosec 40 b.i.d. 15.Mounjaro 2.5 mg weekly. 16.Diltiazem 60 mg q.i.d. 17.Metformin 500 b.i.d. 18.Methocarbamol 500 mg t.i.d. ALLERGIES: 1. Nickel. 2. Adhesive tape. 3. Cymbalta. 4. Zoloft. 5. Trintellix. REVIEW OF SYSTEMS: A 14-point review of systems is otherwise negative. PAST MEDICAL HISTORY: CVA, TIA, diabetes mellitus, fibromyalgia, GERD, dyslipidemia, osteoarthritis, chronic renal disease, syncope, hypothyroidism, and vascular disorder. PAST SURGICAL HISTORY: Appendectomy, adenoidectomy, bowel resection, cholecystectomy, hysterectomy, orthopedic surgery, and tonsillectomy. FAMILY HISTORY: Father with dementia. Mother with osteoarthritis and renal disease. PHYSICAL EXAMINATION: VITAL SIGNS: Temperature 98.5, pulse 68 to 105, respiratory rate 16 to 18, blood pressure was 130s over 60s to 70s, O2 of 96% to 99% on room air. CARDIOVASCULAR: S1 and S2. LUNGS: Transmitted upper airway sounds. PSYCHIATRIC: Fair mood and affect. GI: Soft. NEUROLOGIC: Cranial nerves are intact. HEMATOLOGIC: Negative Homans. Shows open wound about 2 inches x 1 inch on the right lateral leg, looks like a pressure wound. The wound is red into the dermis. No exudate. ASSESSMENT: 1. Diabetic wound infection. 2. Lactic acidosis. 3. History of chronic obstructive pulmonary disease, congestive heart failure, diastolic heart failure. PLAN: Prognosis is guarded. Follow up in the next 24 to 48 hours. Continue with IV antibiotics, updraft, etc. Replace potassium and sodium. Poor albumin, she will need to be on dietary supplements for nutrition. Continue with PT and OT. Possible discharge home soon. MMODL / IJN: [id number] /
[2023-10-03 19:17] LABS: Glucose,Whole Blood 393 mg/dL (70-110)
[2023-10-03] MEDS ORDERED: BUDESONIDE 0.5 MG/2 ML NEBU INHALATION SCH (20:00)
[2023-10-03] MEDS: SYMBICORT 160-4.5 MCG INHALER INHALATION SCH (20:54)
[2023-10-03] MEDS: ACETAMINOPHEN TAB 325 MG TAB PO PRN (21:12)
[2023-10-03] MEDS: NORTRIPTYLINE 25 MG CAP PO SCH (21:23)
[2023-10-03] MEDS: metFORMIN 500 MG TAB PO SCH (21:23)
[2023-10-03] MEDS: ATORVASTATIN 10 MG TAB PO SCH (21:24)
[2023-10-03] MEDS: LACTOBACILLUS ACIDOPHILUS/PECT 1 EACH CAPSULE PO SCH (21:24)
[2023-10-03] MEDS: INSULIN DETEMIR (LEVEMIR) 100 UNIT/ML SYR SQ SCH (21:24)
--- NOTE | 2023-10-03 21:24 | P.CONS ---
History of Present Illness - Reason for Consult Consult date: 10/03/23 Leg infection Requesting physician: Eloy Griffin - Chief Complaint Right leg wound and pain x few days - History of Present Illness Patient is a 78-year-old female with a past medical history significant for diabetes mellitus hypertension hyperlipidemia CVA TIA did have a history of chronic lower extremity ulcers that is well-healed on her last admission to the hospital, patient apparently was noticed to have the wound on the right posterior leg by the home care nurse and apparently was draining she was advised by the home care nurse to go to the ER for evaluation patient denies having any fever or any chills has been complaining of some weakness no headache or URI symptoms no chest pain shortness of breath, no abdominal pain diarrhea has been complaining of mild pain to the right posterior leg wound area did have some bloodstained drainage did have associated swelling to the right lower extremity no significant redness, with the symptoms the patient was evaluated on presentation to the hospital the patient was afebrile no fever have recorded sub sequently patient did have a white count of 12.7 with a left shift creatinine was normal liver exams are normal CRP is 5.1 sed rate was 77 patient did have x- ray of the tibia-fibula that was negative for any fracture or bony abnormality patient was started on Zosyn infectious disease was consulted for further management of antibiotic therapy Review of Systems Positive point and negatives has been mentioned in the HPI, complete review of systems was performed and all other systems are negative Past Medical History Past Medical History: Blood Disorder, Cancer, CVA/TIA, Diabetes Mellitus, Fibromyalgia, GERD/Reflux, Hyperlipidemia, Osteoarthritis (OA), Renal Disease, Syncope, Thyroid Disorder, Vascular Disorder Additional Past Medical History / Comment(s): with L5 compression fracture and L3 indetermined age compression fracture, bilateral lower extremity weakness, bilateral foot drop. 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 History of Any Multi-Drug Resistant Organisms: MRSA, VRE, VRE Year Discovered:: 2008 R knee per pt MDRO Source:: 03/03/16 L foot Past Surgical History: Adenoidectomy, Appendectomy, Bowel Resection, Cholecystectomy, Hysterectomy, Joint Replacement, Orthopedic Surgery, Tonsillectomy Additional Past Surgical History / Comment(s): 10/26/15 suspension microlarygoscopy with benign bx, thyroidectomy, right TKA with infection-I&D then a revision, left ankle surgery WITH HARDWARE, 2 BOWEL SURGERIES, ORIF rt hip-07/2015, bilateral carpal tunnel releases, 1997 cardiac cath-normal, bilateral heel debridements, COLONOSCOPY, R flank "blood tumor" removed, bilateral cataract removals Past Anesthesia/Blood Transfusion Reactions: Postoperative Nausea & Vomiting (PONV) Additional Past Anesthesia/Blood Transfusion Reaction / Comm: Pt received blood after ORIF of the hip surgery Past Psychological History: Anxiety, Depression Additional Psychological History / Comment(s): Pt has a brother that resides with her 6 months out of the year and a dog. She is currently using her walker and uses a wheelchair at times. She drives short distances. . Smoking Status: Never smoker Past Alcohol Use History: None Reported Past Drug Use History: None Reported - Past Family History Father Family Medical History: Dementia Additional Family Medical History / Comment(s): Father of dementia at the age of 91 yrs. Mother Family Medical History: Osteoarthritis (OA), Renal Disease Additional Family Medical History / Comment(s): Mother after kidney stone surgery and went to senior care. She was 90 yrs. old. Medications and Allergies Home Medications Medication Instructions Recorded Confirmed Type oxyCODONE-APAP 10-325MG [Percocet 1 tab PO QID 10/25/15 10/01/23 History 10-325 mg] ALPRAZolam [Xanax] 0.5 mg PO BID PRN 08/27/17 10/01/23 History Levothyroxine Sodium 150 mcg PO DAILY 10/01/19 10/01/23 History Warfarin [Coumadin] 2.5 mg PO HS #0 11/28/19 10/01/23 Rx Metoprolol Succinate (ER) [Toprol 50 mg PO DAILY 90 Days #90 12/10/20 10/01/23 Rx XL] tab.er.24h Ascorbic Acid [Vitamin C] 500 mg PO DAILY 10/31/23 11/16/23 History Atorvastatin [Lipitor] 10 mg PO HS 09/15/23 10/01/23 History Budesonide [Pulmicort] 0.5 mg INHALATION RT-BID 09/15/23 10/01/23 History Cholecalciferol [Vitamin D3 (25 50 mcg PO DAILY 09/15/23 10/01/23 History Mcg = 1000 Iu)] Fluticasone Propion/Salmeterol 1 puff INHALATION RT-BID 09/15/23 10/01/23 History [Wixela 500-50 Inhub] Furosemide [Lasix] 20 mg PO AC-SUPPER 09/15/23 10/01/23 History Furosemide [Lasix] 40 mg PO DAILY 09/15/23 10/01/23 History INSULIN LISPRO (HumaLOG) [humaLOG] 15 units SQ AC-TID 09/15/23 10/01/23 History INSULIN LISPRO (HumaLOG) [humaLOG] See Protocol SQ ACHS 09/15/23 10/01/23 History Insulin Glargine,Hum.rec.anlog 40 units SQ HS 09/15/23 10/01/23 History [Lantus Solostar Pen] Ipratropium-Albuterol Nebulize 3 ml INHALATION RT-QID 09/15/23 10/01/23 History [Duoneb 0.5 mg-3 mg/3 ml Soln] Lactobacillus Acidophilus 1 cap PO BID 09/15/23 10/01/23 History [Acidophilus Probiotic] Metoclopramide HCl [Reglan] 5 mg PO QID 09/15/23 10/01/23 History Nortriptyline [Pamelor] 25 mg PO HS 09/15/23 10/01/23 History Omeprazole [PriLOSEC] 40 mg PO BID 09/15/23 10/01/23 History Sennosides [Senokot] 17.2 mg PO DAILY PRN 09/15/23 10/01/23 History Tirzepatide [Mounjaro] 2.5 mg SQ WE 09/15/23 10/01/23 History dilTIAZem HCL 60 mg PO QID 09/15/23 10/01/23 History metFORMIN HCL [Glucophage] 500 mg PO BID 09/15/23 10/01/23 History methocarbamoL 500 mg PO TID PRN 09/15/23 10/01/23 History polyethylene glycoL 3350 [Miralax] 17 gm PO DAILY 09/15/23 10/01/23 History predniSONE [Deltasone] 20 mg PO DAILY 09/15/23 10/01/23 History Gabapentin 600 mg PO TID 10/01/23 10/01/23 History Amoxic-Pot Clav 875-125Mg 1 tab PO Q12HR 10 Days #20 tab 10/08/23 Rx [Augmentin 875-125] Doxycycline Hyclate 100 mg PO BID 10 Days #20 tab 10/08/23 Rx Acetaminophen Tab [Tylenol] 650 mg PO Q6HR PRN tab 10/09/23 Rx INSULIN ASPART (NovoLOG) [NovoLOG 15 unit SQ AC-TID each 10/09/23 Rx (formulary)] Lactulose [Cephulac] 20 gm PO BID 30 Days #60 ml 10/09/23 Rx Nystatin 100,000 Unit/gm Powd 1 applic TOPICAL TID 30 Days #100 10/09/23 Rx [Mycostatin Powder] each Tamsulosin [Flomax] 0.4 mg PO PC-BRKFST 30 Days #30 cap 10/09/23 Rx Allergies Allergy/AdvReac Type Severity Reaction Status Date / Time nickel [Nickel] Allergy Rash/Hives Verified 10/01/23 20:13 adhesive tape AdvReac blister Verified 10/01/23 20:13 duloxetine HCl AdvReac Hallucinati Verified 10/01/23 20:13 [From Cymbalta] ons sertraline HCl [From Zoloft] AdvReac Hallucinati Verified 10/01/23 20:13 ons vortioxetine hydrobromide AdvReac Hallucinati Verified 10/01/23 20:13 [From Brintellix] ons Physical Exam Vitals: Vital Signs Temp Pulse Pulse Resp BP BP BP 10/03/23 07:37 98.0 F 102 H 19 145/83 10/03/23 02:00 98.1 F 96 16 101/66 10/02/23 19:35 98.6 F 101 H 18 114/73 10/02/23 16:30 98.0 F 103 H 19 122/76 10/02/23 14:00 106 H 16 125/68 Pulse Ox 10/03/23 07:37 100 10/03/23 02:00 100 10/02/23 19:35 99 10/02/23 16:30 97 10/02/23 14:00 Intake and Output 10/02/23 10/03/23 10/03/23 22:59 06:59 14:59 Output Total 250 1100 Balance -250 -1100 Output: Urine 250 1100 Other: Voiding Method Indwelling Catheter Indwelling Catheter Weight 108.862 kg GENERAL DESCRIPTION: Elderly female lying in bed, no distress. No tachypnea or accessory muscle of respiration use. HEENT: Shows Pallor , no scleral icterus. Oral mucous membrane is dry. No pharyngeal erythema or thrush NECK: Trachea central, no thyromegaly. LUNGS: Unlabored breathing. Clear to auscultation anteriorly. No wheeze or crackle. HEART: S1, S2, regular rate and rhythm. No loud murmur ABDOMEN: Soft, no tenderness , guarding or rigidity, no organomegaly EXTREMITIES: Right posterior leg wound with minimal surrounding swelling redness no foul-smelling drainage SKIN: No rash, no masses palpable. NEUROLOGICAL: The patient is awake, alert, oriented x3, mood and affect normal. Results CBC & Chem 7: 10/09/23 07:54 10/09/23 07:54 Labs: Abnormal Lab Results - Last 24 Hours (Table) 10/02/23 10/02/23 10/03/23 Range/Units 17:12 21:44 06:30 PT (10.0-12.5) sec INR (<1.2) POC Glucose (mg/dL) 203 H 320 H 200 H (70-110) mg/dL 10/03/23 Range/Units 07:10 PT 32.3 H (10.0-12.5) sec INR 3.3 H (<1.2) POC Glucose (mg/dL) (70-110) mg/dL Assessment and Plan (1) Cellulitis of right leg Status: Acute Code(s): L03.115 - CELLULITIS OF RIGHT LOWER LIMB SNOMED Code(s): 41072955923398633 (2) Leg wound, right Status: Acute Code(s): S81.801A - UNSPECIFIED OPEN WOUND, RIGHT LOWER LEG, INITIAL ENCOUNTER SNOMED Code(s): 457854725 Plan: 1patient presented hospital with right lower extremity wound and cellulitis denies any history of any trauma patient did have diffuse swelling to the lower extremity and up question of possible venous stasis ulcer versus pressure relat ed and cellulitis likely from gram-positive skin kianna clinical suspicion low for gram-negative or MRSA infection 2-discontinue Zosyn 3-start IV cefazolin 2 g every 8 hours 4-local wound care with a dry Aquacel dressing and Yair wrap to keep the swelling down discussed with the nursing staff We will follow on clinical condition and cultures to further adjust medication if needed Thank you for this consultation we will follow the patient along with you Dictation was produced using [employer] dictation software. please excuse any grammatical, word or spelling errors. Time with Patient: Greater than 30
[2023-10-04] MEDS: oxyCODONE-APAP 10-325MG 1 EACH TAB PO PRN ×3 (05:54→19:33)
[2023-10-04] MEDS: LEVOTHYROXINE 75 MCG TAB PO SCH (05:54)
[2023-10-04 05:58] LABS: Glucose,Whole Blood 220 mg/dL (70-110)
[2023-10-04] MEDS: INSULIN ASPART (NovoLOG) 100 UNIT/ML VIAL SQ SCH ×4 (06:42→21:12)
[2023-10-04] MEDS: ASCORBIC ACID 500 MG TAB PO SCH (08:42)
[2023-10-04] MEDS: LACTOBACILLUS ACIDOPHILUS/PECT 1 EACH CAPSULE PO SCH ×2 (08:42→21:13)
[2023-10-04] MEDS: PANTOPRAZOLE 40 MG TABLET PO SCH ×2 (08:42→21:13)
[2023-10-04] MEDS: FUROSEMIDE 40 MG TAB PO SCH (08:42)
[2023-10-04] MEDS: CHOLECALCIFEROL 25 MCG (1000 IU) TABLET PO SCH (08:42)
[2023-10-04] MEDS: METOCLOPRAMIDE 5 MG TAB PO SCH ×4 (08:42→21:13)
[2023-10-04] MEDS: GABAPENTIN 300 MG CAP PO SCH ×3 (08:42→21:13)
[2023-10-04] MEDS: DILTIAZEM ORAL 60 MG TAB PO SCH ×4 (08:42→21:13)
[2023-10-04] MEDS: metFORMIN 500 MG TAB PO SCH ×2 (08:42→21:14)
[2023-10-04] MEDS: METOPROLOL SUCCINATE (ER) 50 MG TAB.ER.24H PO SCH (08:42)
[2023-10-04] MEDS: polyethylene glycoL 3350 17 GM POWD.PACK PO SCH (08:43)
[2023-10-04 08:44] LABS: Basophils # (A) 0.03 X 10*3/uL (0.00-0.10); Basophils % (A) 0.4 %; Eosinophils # (A) 0.19 X 10*3/uL (0.04-0.35); Eosinophils % (A) 2.3 %; HCT 28.4 % (37.2-46.3); HGB 8.9 g/dL (12.0-15.0); Lymphocytes # (A) 1.85 X 10*3/uL (0.90-5.00); Lymphocytes % (A) 22.8 %; MCH 29.5 pg (27.0-32.0); MCHC 31.3 g/dL (32.0-37.0); Mean Platelet Volume 10.5 FL (9.5-12.2); Monocytes # (A) 0.99 X 10*3/uL (0.20-1.00); Monocytes % (A) 12.2 %; NRBC Per 100 WBC 0 X 10*3/uL (0.00-0.01); Neutrophils # (A) 4.99 X 10*3/uL (1.80-7.70); Neutrophils % (A) 61.4 %; Platelet Count 355 X 10*3/uL (140-440); RBC 3.02 X 10*6/uL (4.10-5.20); RDW 15.4 % (11.5-14.5); WBC 8.12 X 10*3/uL (4.50-10.00)
[2023-10-04 08:48] LABS: BUN/Creat Ratio 21.43 Ratio (12.00-20.00); Glucose 201 mg/dL (70-110)
[2023-10-04 08:49] LABS: ALT 9 U/L (8-44); AST 17 U/L (13-35); Albumin 2.5 g/dL (3.8-4.9); Albumin/Globulin Ratio 1.14 Ratio (1.60-3.17); Alkaline Phosphatase 78 U/L (41-126); Carbon Dioxide 36.5 mmol/L (21.6-31.8); Chloride 96 mmol/L (96-109); Globulin 2.2 g/dL (1.6-3.3); Potassium 3.8 mmol/L (3.5-5.5); Sodium 140 mmol/L (135-145); Total Bilirubin <0.2 mg/dL (0.3-1.2); Total Protein 4.7 g/dL (6.2-8.2)
[2023-10-04] MEDS: IPRATROPIUM-ALBUTEROL 3 ML NEB INHALATION SCH ×4 (08:51→20:41)
[2023-10-04] MEDS: SYMBICORT 160-4.5 MCG INHALER INHALATION SCH ×2 (08:52→20:41)
[2023-10-04] MEDS: SENNOSIDES 8.6 MG TAB PO PRN (08:59)
[2023-10-04] MEDS ORDERED: predniSONE 20 MG TAB PO SCH (09:00)
[2023-10-04] MEDS ORDERED: ZINC OXIDE PASTE (Z-GUARD) 1 APPLIC APPLIC TOPICAL PRN (09:07)
[2023-10-04 10:30] LABS: INR 2.96 sec (0.93-1.11); Prothrombin Time 29.8 sec (9.9-11.9)
[2023-10-04 11:49] LABS: Glucose,Whole Blood 341 mg/dL (70-110)
--- NOTE | 2023-10-04 12:16 | P.PN ---
Subjective Progress Note Date: 10/04/23 Principal diagnosis: Reason for follow-up with right lower extremity wound and concern for cellulitis Patient is a 78-year-old female with a past medical history signific ant for diabetes mellitus hypertension hyperlipidemia CVA TIA who presented to hospital right lower extremity wound and concern for possible cellulitis On today's evaluation that is 10/04/2023, the patient continues to be afebrile, the patient is breathing comfortably on 2 L nasal cannula supplemental oxygen, the patient denies chest pain shortness of breath or cough , patient denies nausea/vomiting , no abdominal pain and no diarrhea has been reported, denies any worsening pain to the right lower extremity He did have a white count of 8.12 creatinine is 0.7 Objective - Vital Signs Vital signs: Vital Signs Temp 98.1 F 10/04/23 07:12 Pulse 92 10/04/23 12:08 Resp 18 10/04/23 07:12 BP 128/78 10/04/23 07:12 Pulse Ox 99 10/04/23 08:52 FiO2 Intake & Output 10/03/23 10/04/23 10/04/23 18:59 06:59 18:59 Output Total 1035 750 Balance -1035 -750 Weight 108.862 kg Output: Urine 1035 750 Other: Voiding Method Indwelling Catheter Indwelling Catheter Indwelling Catheter # Voids 1 - Exam GENERAL DESCRIPTION: An elderly female lying in bed in no distress RESPIRATORY SYSTEM: Unlabored breathing , clear to auscultation anteriorly HEART: S1 S2 regular rate and rhythm , ABDOMEN: Soft , no tenderness EXTREMITIES: Right lower extremity currently covered with Yair wrap - Labs CBC & Chem 7: 10/04/23 05:46 10/04/23 05:46 Labs: Abnormal Lab Results - Last 24 Hours (Table) 10/03/23 10/03/23 10/03/23 Range/Units 09:33 12:34 16:30 RBC (4.10-5.20) X 10*6/uL Hgb (12.0-15.0) g/dL Hct (37.2-46.3) % MCHC (32.0-37.0) g/dL RDW (11.5-14.5) % PT (9.9-11.9) sec INR (0.93-1.11) sec Carbon Dioxide (21.6-31.8) mmol/L BUN/Creatinine Ratio (12.00-20.00) Ratio Glucose (70-110) mg/dL POC Glucose (mg/dL) 400 H 334 H (70-110) mg/dL Hemoglobin A1c 8.3 H (<=6.0) % Calcium (8.7-10.3) mg/dL Total Bilirubin (0.3-1.2) mg/dL Total Protein (6.2-8.2) g/dL Albumin (3.8-4.9) g/dL Albumin/Globulin Ratio (1.60-3.17) Ratio 10/03/23 10/04/23 10/04/23 Range/Units 19:15 05:46 05:46 RBC 3.02 L (4.10-5.20) X 10*6/uL Hgb 8.9 L (12.0-15.0) g/dL Hct 28.4 L (37.2-46.3) % MCHC 31.3 L (32.0-37.0) g/dL RDW 15.4 H (11.5-14.5) % PT 29.8 H (9.9-11.9) sec INR 2.96 H (0.93-1.11) sec Carbon Dioxide (21.6-31.8) mmol/L BUN/Creatinine Ratio (12.00-20.00) Ratio Glucose (70-110) mg/dL POC Glucose (mg/dL) 393 H (70-110) mg/dL Hemoglobin A1c (<=6.0) % Calcium (8.7-10.3) mg/dL Total Bilirubin (0.3-1.2) mg/dL Total Protein (6.2-8.2) g/dL Albumin (3.8-4.9) g/dL Albumin/Globulin Ratio (1.60-3.17) Ratio 10/04/23 10/04/23 10/04/23 Range/Units 05:46 05:57 11:48 RBC (4.10-5.20) X 10*6/uL Hgb (12.0-15.0) g/dL Hct (37.2-46.3) % MCHC (32.0-37.0) g/dL RDW (11.5-14.5) % PT (9.9-11.9) sec INR (0.93-1.11) sec Carbon Dioxide 36.5 H (21.6-31.8) mmol/L BUN/Creatinine Ratio 21.43 H (12.00-20.00) Ratio Glucose 201 H (70-110) mg/dL POC Glucose (mg/dL) 220 H 341 H (70-110) mg/dL Hemoglobin A1c (<=6.0) % Calcium 8.0 L (8.7-10.3) mg/dL Total Bilirubin <0.2 L (0.3-1.2) mg/dL Total Protein 4.7 L (6.2-8.2) g/dL Albumin 2.5 L (3.8-4.9) g/dL Albumin/Globulin Ratio 1.14 L (1.60-3.17) Ratio Assessment and Plan (1) Wound of right lower extremity Current Visit: Yes Status: Acute Code(s): S81.801A - UNSPECIFIED OPEN WOUND, RIGHT LOWER LEG, INITIAL ENCOUNTER SNOMED Code(s): 847000007 (2) Cellulitis of right leg Current Visit: Yes Status: Acute Code(s): L03.115 - CELLULITIS OF RIGHT LOWER LIMB SNOMED Code(s): 41080514027101104 Plan: 1patient presented hospital with right lower extremity wound and cellulitis denies any history of any trauma patient did have diffuse swelling to the lower extremity and up question of possible venous stasis ulcer versus pressure related and cellulitis likely from gram-positive skin kianna clinical suspicion low for gram-negative or MRSA infection 2Patient to continue with cefazolin 2 g every 8 hours 3wound care with a dry Aquacel dressing and Yair wrap to keep the swelling down, will reevaluate the wound at time of dressing change tomorrow Dictation was produced using [employer] dictation software. please excuse any grammatical, word or spelling errors. Time with Patient: Less than 30
[2023-10-04 16:48] LABS: Glucose,Whole Blood 429 mg/dL (70-110)
[2023-10-04] MEDS: FUROSEMIDE 20 MG TAB PO SCH (17:08)
[2023-10-04] MEDS ORDERED: WARFARIN 1.5 MG TAB PO ONE (18:00)
[2023-10-04] MEDS ORDERED: INSULIN ASPART (NovoLOG) 100 UNIT/ML VIAL SQ ONE (18:00)
[2023-10-04 20:08] LABS: Glucose,Whole Blood 513 mg/dL (70-110)
[2023-10-04 20:08] LABS: Glucose,Whole Blood 464 mg/dL (70-110)
[2023-10-04] MEDS: ATORVASTATIN 10 MG TAB PO SCH (21:13)
[2023-10-04] MEDS: NORTRIPTYLINE 25 MG CAP PO SCH (21:14)
[2023-10-04] MEDS: INSULIN DETEMIR (LEVEMIR) 100 UNIT/ML SYR SQ SCH (21:14)
[2023-10-05] MEDS: oxyCODONE-APAP 10-325MG 1 EACH TAB PO PRN ×4 (01:50→20:59)
[2023-10-05 06:47] LABS: Glucose,Whole Blood 309 mg/dL (70-110)
[2023-10-05] MEDS: LEVOTHYROXINE 75 MCG TAB PO SCH (06:53)
[2023-10-05] MEDS: INSULIN ASPART (NovoLOG) 100 UNIT/ML VIAL SQ SCH ×7 (06:54→20:57)
[2023-10-05 07:05] LABS: INR 2.2 (<1.2); Prothrombin Time 21.5 sec (10.0-12.5)
[2023-10-05] MEDS: IPRATROPIUM-ALBUTEROL 3 ML NEB INHALATION SCH ×4 (08:45→21:07)
[2023-10-05] MEDS: SYMBICORT 160-4.5 MCG INHALER INHALATION SCH ×2 (08:45→21:07)
[2023-10-05] MEDS: ASCORBIC ACID 500 MG TAB PO SCH (08:46)
[2023-10-05] MEDS: metFORMIN 500 MG TAB PO SCH ×2 (08:46→20:59)
[2023-10-05] MEDS: LACTOBACILLUS ACIDOPHILUS/PECT 1 EACH CAPSULE PO SCH ×2 (08:46→20:58)
[2023-10-05] MEDS: METOPROLOL SUCCINATE (ER) 50 MG TAB.ER.24H PO SCH (08:46)
[2023-10-05] MEDS: CHOLECALCIFEROL 25 MCG (1000 IU) TABLET PO SCH (08:46)
[2023-10-05] MEDS: PANTOPRAZOLE 40 MG TABLET PO SCH ×2 (08:46→20:59)
[2023-10-05] MEDS: DILTIAZEM ORAL 60 MG TAB PO SCH ×4 (08:46→20:59)
[2023-10-05] MEDS: GABAPENTIN 300 MG CAP PO SCH ×3 (08:46→20:58)
[2023-10-05] MEDS: polyethylene glycoL 3350 17 GM POWD.PACK PO SCH (08:46)
[2023-10-05] MEDS: METOCLOPRAMIDE 5 MG TAB PO SCH ×4 (08:46→20:59)
[2023-10-05] MEDS: FUROSEMIDE 40 MG TAB PO SCH (08:46)
--- NOTE | 2023-10-05 09:00 | CDI ---
Documentation Clarification Form Date: 10/05/2023 08:44:25 AM From: Bonita Samuel RN CCDS Phone: [phone] Admit Date: 10/01/2023 07:04:00 PM Patient Name: Miriam Cardoso Visit Number: [id number] Discharge Date: ATTENTION: The Clinical Documentation Specialists (CDI) and [facility] Coding Staff appreciate your assistance in clarifying documentation. Please respond to the clarification below the line at the bottom and electronically sign. The CDI & [facility] Coding staff will review the response and follow-up if needed. Please note: Queries are made part of the Legal Health Record. If you have any questions, please contact the author of this message via ITS. Dr. Eloy Griffin Patient is on 2.5L of oxygen at home and currently, 10/01, ED Note. Based on this information and the findings below, is there an additional diagnosis that is clinically appropriate for this patient? History/Risk Factors:78 year old female presents from home with right leg diabetic draining wound infection. Medical history: COPD, DM, Right leg wound, CHF and home oxygen. 10/01 ED note. Home oxygen: Home oxygen 2.5L nasal cannula Clinical Indicators: Vital signs: 10/01 B/P 137/63; HR 105; Temp 98.5F Oral; RR 18; SpO2 99% 3L nasal cannula Pulse oximetry: 10/02 SpO2 100% 2.5L nasal cannula Lung/Breathing assessment: 10/01, ED note: Normal lung sounds bilaterally Treatment: Breathing tx: 10/03 Duoneb QID; Pulmicort BID Oxygen via nasal cannula 10/01 to 10/05 Is there an additional diagnosis that is clinically appropriate for this patient? [ ] Chronic Respiratory Failure [ ] Other Diagnosis, please specify [ ] Unable to determine (Template Last Revised: January 2021) MTDD
[2023-10-05 11:49] LABS: Glucose,Whole Blood 329 mg/dL (70-110)
--- NOTE | 2023-10-05 12:27 | P.PN ---
Subjective Progress Note Date: 10/05/23 Principal diagnosis: Reason for follow-up with right lower extremity wound and concern for cellulitis Patient is a 78-year-old female with a past medical history signific ant for diabetes mellitus hypertension hyperlipidemia CVA TIA who presented to hospital right lower extremity wound and concern for possible cellulitis On today's evaluation that is 10/05/2023, the patient remains to be afebrile, the patient is breathing comfortably on 2 L nasal cannula oxygen, the patient denies chest pain or cough , patient has been complaining of left lower abdominal pain, did have some nausea but no vomiting mention no bowel movement for the last 4 days, the patient denies any worsening pain to the right lower extremity He did have a white count of 8.12 creatinine is 0.7 as of 10/04/2023 Objective - Vital Signs Vital signs: Vital Signs Temp 97.7 F 10/05/23 07:02 Pulse 97 10/05/23 09:05 Resp 18 10/05/23 08:00 BP 118/73 10/05/23 07:02 Pulse Ox 97 10/05/23 08:50 FiO2 Intake & Output 10/04/23 10/05/23 10/05/23 18:59 06:59 18:59 Intake Total 400 Output Total 810 1900 Balance -810 -1500 Intake: Oral 400 Output: Urine 810 1900 Other: Voiding Method Indwelling Catheter Indwelling Catheter Indwelling Catheter # Voids 950 - Exam GENERAL DESCRIPTION: An elderly female lying in bed in no distress RESPIRATORY SYSTEM: Unlabored breathing , clear to auscultation anteriorly HEART: S1 S2 regular rate and rhythm , ABDOMEN: Soft , no tenderness EXTREMITIES: Right lower extremity currently covered with Yair wrap - Labs CBC & Chem 7: 10/04/23 05:46 10/04/23 05:46 Labs: Abnormal Lab Results - Last 24 Hours (Table) 10/04/23 10/04/23 10/04/23 Range/Units 16:46 20:05 20:06 PT (10.0-12.5) sec INR (<1.2) POC Glucose (mg/dL) 429 H 513 H 464 H (70-110) mg/dL 10/05/23 10/05/23 10/05/23 Range/Units 06:32 06:46 11:47 PT 21.5 H (10.0-12.5) sec INR 2.2 H (<1.2) POC Glucose (mg/dL) 309 H 329 H (70-110) mg/dL Microbiology - Last 24 Hours (Table) 10/04/23 10:30 Gram Stain - Preliminary Leg - Right Wound Culture - Preliminary Presumptive MRSA Assessment and Plan (1) Wound of right lower extremity Current Visit: Yes Status: Acute Code(s): S81.801A - UNSPECIFIED OPEN WOUND, RIGHT LOWER LEG, INITIAL ENCOUNTER SNOMED Code(s): 804903227 (2) Cellulitis of right leg Current Visit: Yes Status: Acute Code(s): L03.115 - CELLULITIS OF RIGHT LOWER LIMB SNOMED Code(s): 72309659869885595 Plan: 1patient presented hospital with right lower extremity wound and cellulitis denies any history of any trauma patient did have diffuse swelling to the lower extremity and up question of possible venous stasis ulcer versus pressure related and cellulitis likely from gram-positive skin kianna clinical suspicion low for gram-negative or MRSA infection 2wound care with a dry Aquacel dressing and Yair wrap to keep the swelling down 3-Patient to continue with cefazolin 2 g every 8 hours Dictation was produced using [employer] dictation software. please excuse any grammatical, word or spelling errors. Time with Patient: Less than 30
[2023-10-05 16:45] LABS: Glucose,Whole Blood 316 mg/dL (70-110)
[2023-10-05] MEDS: FUROSEMIDE 20 MG TAB PO SCH (17:12)
[2023-10-05] MEDS ORDERED: WARFARIN 2 MG TAB PO ONE (18:00)
[2023-10-05 20:25] LABS: Glucose,Whole Blood 176 mg/dL (70-110)
[2023-10-05] MEDS: INSULIN DETEMIR (LEVEMIR) 100 UNIT/ML SYR SQ SCH (20:57)
[2023-10-05] MEDS: NORTRIPTYLINE 25 MG CAP PO SCH (20:59)
[2023-10-05] MEDS: ATORVASTATIN 10 MG TAB PO SCH (20:59)
[2023-10-05] MEDS: SENNOSIDES 8.6 MG TAB PO PRN (21:07)
[2023-10-06 06:06] LABS: Glucose,Whole Blood 133 mg/dL (70-110)
[2023-10-06] MEDS: LEVOTHYROXINE 75 MCG TAB PO SCH (06:07)
[2023-10-06] MEDS: INSULIN ASPART (NovoLOG) 100 UNIT/ML VIAL SQ SCH ×7 (06:09→21:13)
[2023-10-06 06:34] LABS: INR 2.4 (<1.2); Prothrombin Time 23.7 sec (10.0-12.5)
--- NOTE | 2023-10-06 06:43 | PN ---
PROGRESS NOTE A 78-year-old white female, generalized weakness. She has a wound on her right lateral leg. Family wants to go to [facility] for 1-2 weeks before coming home. The patient states she will not go to any other senior care other than [facility] in only for a week or two. She has generalized weakness, seen by Dr. Gunderson for infection. PHYSICAL EXAMINATION: VITAL SIGNS: Blood pressure 113/73, O2 96 on 2 L, temp 94, pulse 70-80, respiratory rate 16-18. CARDIOVASCULAR: S1, S2. LUNGS: Clear. GI: Soft. EXTREMITIES: She has a wound in right lower extremities, cellulitis of the legs. She has been on cefazolin for the last couple of days. Aquacel dressings. PSYCH: Alert and oriented x3. PROGNOSIS: Guarded. Dr. Gunderson is seeing her for the right lateral wound infection. She has abdominal pain today. Denies any worsened pain to the right lower extremity. LABORATORY DATA: White count of 8.1. INR is 2.2. Sugars mid 300s to 100s. Diabetes, hypertension, COPD, all being treated. She is alert and oriented x3. Continue current treatment PT OT. MMODL / IJN: [id number] /
[2023-10-06] MEDS: GABAPENTIN 300 MG CAP PO SCH ×3 (07:36→21:14)
[2023-10-06] MEDS: ASCORBIC ACID 500 MG TAB PO SCH (07:37)
[2023-10-06] MEDS: metFORMIN 500 MG TAB PO SCH ×2 (07:37→21:14)
[2023-10-06] MEDS: PANTOPRAZOLE 40 MG TABLET PO SCH ×2 (07:37→21:14)
[2023-10-06] MEDS: METOPROLOL SUCCINATE (ER) 50 MG TAB.ER.24H PO SCH (07:37)
[2023-10-06] MEDS: CHOLECALCIFEROL 25 MCG (1000 IU) TABLET PO SCH (07:37)
[2023-10-06] MEDS: LACTOBACILLUS ACIDOPHILUS/PECT 1 EACH CAPSULE PO SCH ×2 (07:37→21:13)
[2023-10-06] MEDS: FUROSEMIDE 40 MG TAB PO SCH (07:37)
[2023-10-06] MEDS: polyethylene glycoL 3350 17 GM POWD.PACK PO SCH (07:38)
[2023-10-06] MEDS: METOCLOPRAMIDE 5 MG TAB PO SCH ×4 (07:38→21:14)
[2023-10-06] MEDS: DILTIAZEM ORAL 60 MG TAB PO SCH ×4 (07:38→21:14)
[2023-10-06] MEDS: SENNOSIDES 8.6 MG TAB PO PRN (07:45)
[2023-10-06] MEDS: oxyCODONE-APAP 10-325MG 1 EACH TAB PO PRN ×3 (07:45→22:10)
[2023-10-06] MEDS: IPRATROPIUM-ALBUTEROL 3 ML NEB INHALATION SCH ×4 (09:27→21:01)
[2023-10-06] MEDS: SYMBICORT 160-4.5 MCG INHALER INHALATION SCH ×2 (09:27→21:01)
[2023-10-06] MEDS ORDERED: VANCOMYCIN IV PER PHARMACY 1 EACH MISC MISCELLANE PRN (11:04)
[2023-10-06 11:10] LABS: Glucose,Whole Blood 119 mg/dL (70-110)
[2023-10-06] MEDS ORDERED: VANCOMYCIN 1,750 MG in SODIUM CHLORIDE 0.9% 500 ML 500 ML IVPB ONE (12:00)
--- NOTE | 2023-10-06 14:32 | P.PN ---
Subjective Progress Note Date: 10/06/23 Principal diagnosis: Reason for follow-up with right lower extremity wound and concern for cellulitis Patient is a 78-year-old female with a past medical history signific ant for diabetes mellitus hypertension hyperlipidemia CVA TIA who presented to hospital right lower extremity wound and concern for possible cellulitis On today's evaluation that is 10/06/2023, the patient continues to be afebrile, the patient is breathing comfortably on 2 L nasal cannula supplemental oxygen, the patient denies shortness of breath chest pain and no significant cough , patient denies nausea/vomiting, no abdominal pain and no diarrhea, the patient denies any worsening pain to the right lower extremity He did have a white count of 8.12 creatinine is 0.7 as of 10/04/2023, local culture from the right leg is growing MRSA and enterococcus Objective - Vital Signs Vital signs: Vital Signs Temp 97.9 F 10/06/23 07:47 Pulse 92 10/06/23 09:41 Resp 18 10/06/23 07:47 BP 116/76 10/06/23 07:47 Pulse Ox 95 10/06/23 07:47 FiO2 Intake & Output 10/05/23 10/06/23 10/06/23 18:59 06:59 18:59 Intake Total 750 Output Total 1999 650 Balance -1250 -650 Intake: Intake, IV Titration 100 Amount ceFAZolin 2 gm In Sodium 100 Chloride 0.9% 50 ml @ 100 mls/hr IVPB Q8HR [facility] Rx# :[id number] Oral 650 Output: Urine 1999 650 Other: Voiding Method Indwelling Catheter Indwelling Catheter - Exam GENERAL DESCRIPTION: An elderly female lying in bed in no distress RESPIRATORY SYSTEM: Unlabored breathing , clear to auscultation anteriorly HEART: S1 S2 regular rate and rhythm , ABDOMEN: Soft , no tenderness EXTREMITIES: Right posterior leg wound decrease in size no slough tissue minimal redness - Labs CBC & Chem 7: 10/04/23 05:46 10/04/23 05:46 Labs: Abnormal Lab Results - Last 24 Hours (Table) 10/05/23 10/05/23 10/05/23 Range/Units 11:47 16:43 20:23 PT (10.0-12.5) sec INR (<1.2) POC Glucose (mg/dL) 329 H 316 H 176 H (70-110) mg/dL 10/06/23 10/06/23 Range/Units 06:02 06:04 PT 23.7 H (10.0-12.5) sec INR 2.4 H (<1.2) POC Glucose (mg/dL) 133 H (70-110) mg/dL Microbiology - Last 24 Hours (Table) 10/04/23 10:30 Gram Stain - Preliminary Leg - Right Wound Culture - Preliminary Methicillin resist S. aureus Group D Enterococcus Assessment and Plan (1) Wound of right lower extremity Current Visit: Yes Status: Acute Code(s): S81.801A - UNSPECIFIED OPEN WOUND, RIGHT LOWER LEG, INITIAL ENCOUNTER SNOMED Code(s): 455923389 (2) Cellulitis of right leg Current Visit: Yes Status: Acute Code(s): L03.115 - CELLULITIS OF RIGHT LOWER LIMB SNOMED Code(s): 05989644643695823 Plan: 1patient presented hospital with right lower extremity wound and cellulitis denies any history of any trauma patient did have diffuse swelling to the lower extremity and up question of possible venous stasis ulcer versus pressure r elated and cellulitis likely from gram-positive skin kianna clinical suspicion low for gram-negative or MRSA infection 2wound care with a dry Aquacel dressing and Yair wrap to keep the swelling down 3-Local culture growing group D enterococcus and MRSA 4-cefazolin discontinued vancomycin has been started while waiting for the sensitivities on enterococcus to finalize Dictation was produced using [employer] dictation software. please excuse any grammatical, word or spelling errors. Time with Patient: Less than 30
[2023-10-06] MEDS: FUROSEMIDE 20 MG TAB PO SCH (16:21)
[2023-10-06 16:22] LABS: Glucose,Whole Blood 138 mg/dL (70-110)
[2023-10-06] MEDS ORDERED: WARFARIN 2 MG TAB PO ONE (18:00)
[2023-10-06 20:09] LABS: Glucose,Whole Blood 174 mg/dL (70-110)
[2023-10-06] MEDS: INSULIN DETEMIR (LEVEMIR) 100 UNIT/ML SYR SQ SCH (21:13)
[2023-10-06] MEDS: ATORVASTATIN 10 MG TAB PO SCH (21:13)
[2023-10-06] MEDS: NORTRIPTYLINE 25 MG CAP PO SCH (21:14)
[2023-10-07] MEDS: VANCOMYCIN 1,750 MG in SODIUM CHLORIDE 0.9% 500 ML 500 ML IVPB SCH ×2 (04:10→21:14)
[2023-10-07] MEDS: LEVOTHYROXINE 75 MCG TAB PO SCH (05:33)
[2023-10-07] MEDS: oxyCODONE-APAP 10-325MG 1 EACH TAB PO PRN ×4 (05:33→22:49)
[2023-10-07 06:03] LABS: INR 2.2 (<1.2); Prothrombin Time 22.2 sec (10.0-12.5)
[2023-10-07 06:05] LABS: Glucose,Whole Blood 159 mg/dL (70-110)
[2023-10-07] MEDS: INSULIN ASPART (NovoLOG) 100 UNIT/ML VIAL SQ SCH ×7 (07:00→21:15)
[2023-10-07] MEDS: CHOLECALCIFEROL 25 MCG (1000 IU) TABLET PO SCH (07:31)
[2023-10-07] MEDS: ASCORBIC ACID 500 MG TAB PO SCH (07:31)
[2023-10-07] MEDS: metFORMIN 500 MG TAB PO SCH ×2 (07:31→21:15)
[2023-10-07] MEDS: FUROSEMIDE 40 MG TAB PO SCH (07:31)
[2023-10-07] MEDS: GABAPENTIN 300 MG CAP PO SCH ×3 (07:31→21:15)
[2023-10-07] MEDS: METOCLOPRAMIDE 5 MG TAB PO SCH ×4 (07:31→21:15)
[2023-10-07] MEDS: METOPROLOL SUCCINATE (ER) 50 MG TAB.ER.24H PO SCH (07:32)
[2023-10-07] MEDS: LACTOBACILLUS ACIDOPHILUS/PECT 1 EACH CAPSULE PO SCH ×2 (07:32→21:15)
[2023-10-07] MEDS: DILTIAZEM ORAL 60 MG TAB PO SCH ×4 (07:32→21:15)
[2023-10-07] MEDS: polyethylene glycoL 3350 17 GM POWD.PACK PO SCH (07:32)
[2023-10-07] MEDS: PANTOPRAZOLE 40 MG TABLET PO SCH ×2 (07:32→21:15)
[2023-10-07] MEDS: SENNOSIDES 8.6 MG TAB PO PRN (07:35)
[2023-10-07] MEDS: SYMBICORT 160-4.5 MCG INHALER INHALATION SCH ×2 (07:48→20:58)
[2023-10-07] MEDS: IPRATROPIUM-ALBUTEROL 3 ML NEB INHALATION SCH ×4 (07:48→20:56)
[2023-10-07 08:48] LABS: Basophils # (A) 0.05 X 10*3/uL (0.00-0.10); Basophils % (A) 0.4 %; Eosinophils % (A) 2.7 %; HCT 30.4 % (37.2-46.3); HGB 9.2 g/dL (12.0-15.0); Lymphocytes # (A) 1.97 X 10*3/uL (0.90-5.00); Lymphocytes % (A) 17.6 %; MCH 28.9 pg (27.0-32.0); MCHC 30.3 g/dL (32.0-37.0); MCV 95.6 FL (80.0-97.0); Mean Platelet Volume 10.9 FL (9.5-12.2); Monocytes # (A) 1.11 X 10*3/uL (0.20-1.00); Monocytes % (A) 9.9 %; NRBC Per 100 WBC 0 X 10*3/uL (0.00-0.01); Neutrophils # (A) 7.65 X 10*3/uL (1.80-7.70); Neutrophils % (A) 68.4 %; Platelet Count 354 X 10*3/uL (140-440); RBC 3.18 X 10*6/uL (4.10-5.20); RDW 15.3 % (11.5-14.5); WBC 11.19 X 10*3/uL (4.50-10.00)
[2023-10-07 09:38] LABS: ALT 6 U/L (8-44); AST 18 U/L (13-35); Albumin 2.5 g/dL (3.8-4.9); Albumin/Globulin Ratio 1.09 Ratio (1.60-3.17); Alkaline Phosphatase 89 U/L (41-126); BUN/Creat Ratio 42.83 Ratio (12.00-20.00); Blood Urea Nitrogen 25.7 mg/dL (9.0-27.0); Calcium 8.6 mg/dL (8.7-10.3); Carbon Dioxide 33.8 mmol/L (21.6-31.8); Chloride 99 mmol/L (96-109); Globulin 2.3 g/dL (1.6-3.3); Glucose 159 mg/dL (70-110); Sodium 140 mmol/L (135-145); Total Bilirubin <0.2 mg/dL (0.3-1.2); Total Protein 4.8 g/dL (6.2-8.2)
[2023-10-07 10:59] LABS: Glucose,Whole Blood 154 mg/dL (70-110)
[2023-10-07] MEDS ORDERED: bisacodyL 10 MG SUPP RECTAL STA ×2 (13:56→14:04)
[2023-10-07 16:32] LABS: Glucose,Whole Blood 154 mg/dL (70-110)
[2023-10-07] MEDS: FUROSEMIDE 20 MG TAB PO SCH (17:00)
[2023-10-07] MEDS ORDERED: WARFARIN 2 MG TAB PO ONE (18:00)
--- NOTE | 2023-10-07 19:37 | PN ---
PROGRESS NOTE A 78-year-old white female. Dr. Gunderson cleared her for possible discharge, although she has MRSA gram-negative bacilli, Regina in her leg wound. PT, OT. The patient is going to get up and ambulating prior to going home. She is on 2 L of oxygen. She has CHF, COPD. White count 8.1, creatinine 0.7. Vital signs reviewed. Hemoglobin is 8.9. She has a wound in right lower extremity, drug-resistant, cellulitis of the right hip, CHF, COPD. Aquacel Silver, and Yair wraps have been given. Vancomycin has been started. Waiting for sensitivities. Prognosis guarded. Please see further orders. MMODL / IJN: [id number] /
[2023-10-07 19:51] LABS: Glucose,Whole Blood 156 mg/dL (70-110)
[2023-10-07] MEDS: INSULIN DETEMIR (LEVEMIR) 100 UNIT/ML SYR SQ SCH (21:15)
[2023-10-07] MEDS: NORTRIPTYLINE 25 MG CAP PO SCH (21:15)
[2023-10-07] MEDS: LACTULOSE 20 GM/30 ML CUP PO SCH (21:15)
[2023-10-07] MEDS: ATORVASTATIN 10 MG TAB PO SCH (21:15)
[2023-10-08] MEDS: oxyCODONE-APAP 10-325MG 1 EACH TAB PO PRN ×2 (04:59→21:03)
[2023-10-08 06:02] LABS: Glucose,Whole Blood 133 mg/dL (70-110)
[2023-10-08] MEDS: INSULIN ASPART (NovoLOG) 100 UNIT/ML VIAL SQ SCH ×7 (06:42→21:02)
[2023-10-08] MEDS: LEVOTHYROXINE 75 MCG TAB PO SCH (06:46)
[2023-10-08 08:53] LABS: African American GFR (CKD) >90 (>60 ml/min/1.73 sqM); Non-African American GFR(CKD) 89 (>60 ml/min/1.73 sqM)
[2023-10-08] MEDS: SYMBICORT 160-4.5 MCG INHALER INHALATION SCH ×2 (08:53→20:04)
[2023-10-08] MEDS: IPRATROPIUM-ALBUTEROL 3 ML NEB INHALATION SCH ×4 (08:53→20:04)
[2023-10-08 09:04] LABS: INR 1.8 (<1.2); Prothrombin Time 17.8 sec (10.0-12.5)
[2023-10-08] MEDS: PANTOPRAZOLE 40 MG TABLET PO SCH ×2 (09:54→21:03)
[2023-10-08] MEDS: CHOLECALCIFEROL 25 MCG (1000 IU) TABLET PO SCH (09:54)
[2023-10-08] MEDS: metFORMIN 500 MG TAB PO SCH ×2 (09:55→21:03)
[2023-10-08] MEDS: METOCLOPRAMIDE 5 MG TAB PO SCH ×4 (09:55→21:03)
[2023-10-08] MEDS: METOPROLOL SUCCINATE (ER) 50 MG TAB.ER.24H PO SCH (09:55)
[2023-10-08] MEDS: GABAPENTIN 300 MG CAP PO SCH ×3 (09:55→21:03)
[2023-10-08] MEDS: FUROSEMIDE 40 MG TAB PO SCH (09:55)
[2023-10-08] MEDS: DILTIAZEM ORAL 60 MG TAB PO SCH ×4 (09:55→21:03)
[2023-10-08] MEDS: LACTOBACILLUS ACIDOPHILUS/PECT 1 EACH CAPSULE PO SCH ×2 (09:56→21:03)
[2023-10-08] MEDS: polyethylene glycoL 3350 17 GM POWD.PACK PO SCH (09:56)
[2023-10-08] MEDS: LACTULOSE 20 GM/30 ML CUP PO SCH ×2 (10:00→21:02)
[2023-10-08] MEDS: ASCORBIC ACID 500 MG TAB PO SCH (10:07)
[2023-10-08] MEDS: SENNOSIDES 8.6 MG TAB PO PRN (10:07)
[2023-10-08] MEDS: TAMSULOSIN 0.4 MG CAP.ER.24H PO SCH (11:02)
[2023-10-08 11:23] LABS: Glucose,Whole Blood 111 mg/dL (70-110)
[2023-10-08] MEDS: VANCOMYCIN 1,750 MG in SODIUM CHLORIDE 0.9% 500 ML 500 ML IVPB SCH (12:39)
--- NOTE | 2023-10-08 14:32 | P.PN ---
Subjective Progress Note Date: 10/07/23 Principal diagnosis: Reason for follow-up with right lower extremity wound and concern for cellulitis Patient is a 78-year-old female with a past medical history signific ant for diabetes mellitus hypertension hyperlipidemia CVA TIA who presented to hospital right lower extremity wound and concern for possible cellulitis On today's evaluation that is 10/07/2023, the patient remains to be afebrile, the patient is breathing comfortably on room air and the patient denies any shortness of breath, the patient denies chest pain or any cough , patient denies abdominal pain, no nausea/vomiting and no diarrheag pain to the right lower extremity He did have a white count of 11.19 creatinine is 0.6, local culture from the right leg is growing MRSA and enterococcus Objective - Vital Signs Vital signs: Vital Signs Temp 97.9 F 10/07/23 06:55 Pulse 83 10/07/23 11:34 Resp 18 10/07/23 06:55 BP 114/61 10/07/23 06:55 Pulse Ox 96 10/07/23 07:50 FiO2 Intake & Output 10/06/23 10/07/23 10/07/23 18:59 06:59 18:59 Output Total 1900 1000 Balance -1900 -1000 Weight 108.862 kg Output: Urine 1900 1000 - Exam GENERAL DESCRIPTION: An elderly female lying in bed in no distress RESPIRATORY SYSTEM: Unlabored breathing , clear to auscultation anteriorly HEART: S1 S2 regular rate and rhythm , ABDOMEN: Soft , no tenderness EXTREMITIES: Right posterior leg wound is currently dressed in Yair wrap - Labs CBC & Chem 7: 10/07/23 05:17 10/08/23 07:40 Labs: Abnormal Lab Results - Last 24 Hours (Table) 10/06/23 10/06/23 10/07/23 Range/Units 16:20 20:08 05:17 WBC (4.50-10.00) X 10*3/uL RBC (4.10-5.20) X 10*6/uL Hgb (12.0-15.0) g/dL Hct (37.2-46.3) % MCHC (32.0-37.0) g/dL RDW (11.5-14.5) % Monocytes # (0.20-1.00) X 10*3/uL PT 22.2 H (10.0-12.5) sec INR 2.2 H (<1.2) Carbon Dioxide (21.6-31.8) mmol/L BUN/Creatinine Ratio (12.00-20.00) Ratio Glucose (70-110) mg/dL POC Glucose (mg/dL) 138 H 174 H (70-110) mg/dL Calcium (8.7-10.3) mg/dL Total Bilirubin (0.3-1.2) mg/dL ALT (8-44) U/L Total Protein (6.2-8.2) g/dL Albumin (3.8-4.9) g/dL Albumin/Globulin Ratio (1.60-3.17) Ratio 10/07/23 10/07/23 10/07/23 Range/Units 05:17 05:17 06:03 WBC 11.19 H (4.50-10.00) X 10*3/uL RBC 3.18 L (4.10-5.20) X 10*6/uL Hgb 9.2 L (12.0-15.0) g/dL Hct 30.4 L (37.2-46.3) % MCHC 30.3 L (32.0-37.0) g/dL RDW 15.3 H (11.5-14.5) % Monocytes # 1.11 H (0.20-1.00) X 10*3/uL PT (10.0-12.5) sec INR (<1.2) Carbon Dioxide 33.8 H (21.6-31.8) mmol/L BUN/Creatinine Ratio 42.83 H (12.00-20.00) Ratio Glucose 159 H (70-110) mg/dL POC Glucose (mg/dL) 159 H (70-110) mg/dL Calcium 8.6 L (8.7-10.3) mg/dL Total Bilirubin <0.2 L (0.3-1.2) mg/dL ALT 6 L (8-44) U/L Total Protein 4.8 L (6.2-8.2) g/dL Albumin 2.5 L (3.8-4.9) g/dL Albumin/Globulin Ratio 1.09 L (1.60-3.17) Ratio 10/07/23 Range/Units 10:54 WBC (4.50-10.00) X 10*3/uL RBC (4.10-5.20) X 10*6/uL Hgb (12.0-15.0) g/dL Hct (37.2-46.3) % MCHC (32.0-37.0) g/dL RDW (11.5-14.5) % Monocytes # (0.20-1.00) X 10*3/uL PT (10.0-12.5) sec INR (<1.2) Carbon Dioxide (21.6-31.8) mmol/L BUN/Creatinine Ratio (12.00-20.00) Ratio Glucose (70-110) mg/dL POC Glucose (mg/dL) 154 H (70-110) mg/dL Calcium (8.7-10.3) mg/dL Total Bilirubin (0.3-1.2) mg/dL ALT (8-44) U/L Total Protein (6.2-8.2) g/dL Albumin (3.8-4.9) g/dL Albumin/Globulin Ratio (1.60-3.17) Ratio Microbiology - Last 24 Hours (Table) 10/04/23 10:30 Anaerobic Culture - Preliminary Leg - Right Regina albicans 10/04/23 10:30 Gram Stain - Preliminary Leg - Right Wound Culture - Preliminary Methicillin resist S. aureus Enterococcus faecalis Gram Neg Bacilli Assessment and Plan (1) Wound of right lower extremity Current Visit: Yes Status: Acute Code(s): S81.801A - UNSPECIFIED OPEN WOUND, RIGHT LOWER LEG, INITIAL ENCOUNTER SNOMED Code(s): 298854036 (2) Cellulitis of right leg Current Visit: Yes Status: Acute Code(s): L03.115 - CELLULITIS OF RIGHT LOWER LIMB SNOMED Code(s): 61910365287166269 Plan: 1patient presented hospital with right lower extremity wound and cellulitis denies any history of any trauma patient did have diffuse swelling to the lower extremity and up question of possible venous stasis ulcer versus pressure rela alonso and cellulitis likely from gram-positive skin kianna clinical suspicion low for gram-negative or MRSA infection 2wound care with a dry Aquacel dressing and Yair wrap to keep the swelling down 3-Local culture growing group D enterococcus and MRSA 4Patient to continue with vancomycin has been started while waiting for the sensitivities on enterococcus to finalize to determine his discharge antibiotics Dictation was produced using [employer] dictation software. please excuse any grammatical, word or spelling errors. Time with Patient: Less than 30
--- NOTE | 2023-10-08 14:33 | P.PN ---
Subjective Progress Note Date: 10/08/23 Principal diagnosis: Reason for follow-up with right lower extremity wound and concern for cellulitis Patient is a 78-year-old female with a past medical history signific ant for diabetes mellitus hypertension hyperlipidemia CVA TIA who presented to hospital right lower extremity wound and concern for possible cellulitis On today's evaluation that is 10/08/2023, the patient continues to be afebrile, the patient is breathing comfortably on 2 L nasal cannula oxygen, and the patient denies chest pain shortness of breath or cough , patient denies nausea/vomiting , no abdominal pain and no diarrhea patient mentioned Sheehan catheter has been discontinued and she has not urinated yet denies pain to the lower extremity wound area He did have a white count of 11.19 as of yesterday creatinine is 0.57, local culture from the right leg is growing MRSA and enterococcus Objective - Vital Signs Vital signs: Vital Signs Temp 98.0 F 10/08/23 12:59 Pulse 107 H 10/08/23 12:59 Resp 19 10/08/23 12:59 BP 134/63 10/08/23 12:59 Pulse Ox 95 10/08/23 12:59 FiO2 Intake & Output 10/07/23 10/08/23 10/08/23 18:59 06:59 18:59 Output Total 1800 2200 Balance -1800 -2200 Output: Urine 1800 2200 Other: Voiding Method Indwelling Catheter - Exam GENERAL DESCRIPTION: An elderly female lying in bed in no distress RESPIRATORY SYSTEM: Unlabored breathing , clear to auscultation anteriorly HEART: S1 S2 regular rate and rhythm , ABDOMEN: Soft , no tenderness EXTREMITIES: Right posterior leg wound is currently dressed in Yair wrap - Labs CBC & Chem 7: 10/07/23 05:17 10/08/23 07:40 Labs: Abnormal Lab Results - Last 24 Hours (Table) 10/07/23 10/07/23 10/08/23 Range/Units 16:31 19:50 06:01 PT (10.0-12.5) sec INR (<1.2) POC Glucose (mg/dL) 154 H 156 H 133 H (70-110) mg/dL 10/08/23 10/08/23 Range/Units 07:40 : PT 17.8 H (10.0-12.5) sec INR 1.8 H (<1.2) POC Glucose (mg/dL) 111 H (70-110) mg/dL Microbiology - Last 24 Hours (Table) 10/04/23 10:30 Anaerobic Culture - Final Leg - Right Regina albicans 10/04/23 10:30 Gram Stain - Preliminary Leg - Right Wound Culture - Preliminary Methicillin resist S. aureus Enterococcus faecalis Gram Neg Bacilli Assessment and Plan (1) Wound of right lower extremity Current Visit: Yes Status: Acute Code(s): S81.801A - UNSPECIFIED OPEN WOUND, RIGHT LOWER LEG, INITIAL ENCOUNTER SNOMED Code(s): 213616272 (2) Cellulitis of right leg Current Visit: Yes Status: Acute Code(s): L03.115 - CELLULITIS OF RIGHT LOWER LIMB SNOMED Code(s): 81886798938552112 Plan: 1patient presented hospital with right lower extremity wound and cellulitis denies any history of any trauma patient did have diffuse swelling to the lower extremity and up question of possible venous stasis ulcer versus pressure related and cellulitis likely from gram-positive skin kianna clinical suspicion low for gram-negative or MRSA infection 2wound care with a dry Aquacel dressing and Yair wrap to keep the swelling down 3-Local culture growing group D enterococcus that is penicillin sensitive and MRSA 4Patient to continue with vancomycin, plan is to finish therapy with oral doxycycline and Augmentin Dictation was produced using [employer] dictation software. please excuse any grammatical, word or spelling errors. Time with Patient: Less than 30
[2023-10-08 16:35] LABS: Glucose,Whole Blood 130 mg/dL (70-110)
[2023-10-08] MEDS: FUROSEMIDE 20 MG TAB PO SCH (16:51)
[2023-10-08] MEDS: ACETAMINOPHEN TAB 325 MG TAB PO PRN (16:54)
[2023-10-08] MEDS: NYSTATIN 100,000 UNIT/GM POWD 15 GM TOPICAL SCH ×2 (16:55→21:04)
[2023-10-08] MEDS ORDERED: WARFARIN 2.5 MG TAB PO ONE (18:00)
[2023-10-08 20:42] LABS: Glucose,Whole Blood 214 mg/dL (70-110)
[2023-10-08] MEDS: INSULIN DETEMIR (LEVEMIR) 100 UNIT/ML SYR SQ SCH (21:02)
[2023-10-08] MEDS: NORTRIPTYLINE 25 MG CAP PO SCH (21:03)
[2023-10-08] MEDS: ATORVASTATIN 10 MG TAB PO SCH (21:03)
--- NOTE | 2023-10-09 01:50 | PN ---
PROGRESS NOTE Chronic respiratory failure. MMODL / IJN: [id number] /
--- NOTE | 2023-10-09 02:35 | PN ---
PROGRESS NOTE SUBJECTIVE: She is on Symbicort for breathing, Tal lynn, PT, OT, to try to get her to move better. She is treating for constipation, urinary retention. She is started on Flomax for that. Wait for Dr. Gunderson to get final antibiotics for discharge for wound care. OBJECTIVE: VITAL SIGNS: Temp 98, pulse mid 90s, blood pressure 117/60, O2 of 99 on 2 L. CARDIOVASCULAR: S1, S2. LUNGS: Scattered wheeze. HEMATOLOGY: Negative Homans. PSYCH: Fair mood and affect. NEUROLOGIC: Alert and oriented x3. LABORATORY DATA: INR is 1.8. Creatinine is 0.5. Sugars in mid 100s to 200s. PLAN: Continue current treatment. Possible discharge home. She has bowel movement. Urinary retention gets better. Antibiotics were set up for discharge. Prognosis guarded. MMODL / IJN: [id number] /
[2023-10-09] MEDS: ACETAMINOPHEN TAB 325 MG TAB PO PRN (04:24)
[2023-10-09] MEDS: VANCOMYCIN 1,750 MG in SODIUM CHLORIDE 0.9% 500 ML 500 ML IVPB SCH (04:24)
[2023-10-09 06:25] LABS: Glucose,Whole Blood 136 mg/dL (70-110)
[2023-10-09] MEDS: INSULIN ASPART (NovoLOG) 100 UNIT/ML VIAL SQ SCH ×4 (06:42→12:47)
[2023-10-09] MEDS: LEVOTHYROXINE 75 MCG TAB PO SCH (06:47)
[2023-10-09] MEDS: IPRATROPIUM-ALBUTEROL 3 ML NEB INHALATION SCH ×2 (08:12→11:50)
[2023-10-09] MEDS: SYMBICORT 160-4.5 MCG INHALER INHALATION SCH (08:12)
[2023-10-09 08:25] VITALS: BP 113/72; RESP 19; TEMP 97.8
[2023-10-09 08:32] LABS: INR 1.8 (<1.2)
[2023-10-09] MEDS ORDERED: DOXYCYCLINE 100 MG CAP PO SCH (09:00)
[2023-10-09] MEDS ORDERED: AMOXIC-POT CLAV 875-125MG 1 EACH TAB PO SCH (09:00)
[2023-10-09] MEDS: metFORMIN 500 MG TAB PO SCH (09:16)
[2023-10-09] MEDS: GABAPENTIN 300 MG CAP PO SCH (09:16)
[2023-10-09] MEDS: CHOLECALCIFEROL 25 MCG (1000 IU) TABLET PO SCH (09:16)
[2023-10-09] MEDS: DILTIAZEM ORAL 60 MG TAB PO SCH ×2 (09:16→12:47)
[2023-10-09] MEDS: FUROSEMIDE 40 MG TAB PO SCH (09:16)
[2023-10-09] MEDS: LACTULOSE 20 GM/30 ML CUP PO SCH (09:16)
[2023-10-09] MEDS: LACTOBACILLUS ACIDOPHILUS/PECT 1 EACH CAPSULE PO SCH (09:16)
[2023-10-09] MEDS: TAMSULOSIN 0.4 MG CAP.ER.24H PO SCH (09:16)
[2023-10-09] MEDS: SENNOSIDES 8.6 MG TAB PO PRN (09:16)
[2023-10-09] MEDS: polyethylene glycoL 3350 17 GM POWD.PACK PO SCH (09:16)
[2023-10-09] MEDS: METOCLOPRAMIDE 5 MG TAB PO SCH ×2 (09:16→12:47)
[2023-10-09] MEDS: PANTOPRAZOLE 40 MG TABLET PO SCH (09:17)
[2023-10-09] MEDS: ASCORBIC ACID 500 MG TAB PO SCH (09:17)
[2023-10-09] MEDS: METOPROLOL SUCCINATE (ER) 50 MG TAB.ER.24H PO SCH (09:17)
[2023-10-09] MEDS: oxyCODONE-APAP 10-325MG 1 EACH TAB PO PRN (09:26)
[2023-10-09] MEDS: NYSTATIN 100,000 UNIT/GM POWD 15 GM TOPICAL SCH (09:26)
[2023-10-09 11:34] LABS: Glucose,Whole Blood 124 mg/dL (70-110)
[2023-10-09 11:54] LABS: Basophils # (A) 0.02 X 10*3/uL (0.00-0.10); Basophils % (A) 0.2 %; Eosinophils # (A) 0.26 X 10*3/uL (0.04-0.35); Eosinophils % (A) 2.4 %; HCT 27.7 % (37.2-46.3); HGB 8.4 g/dL (12.0-15.0); Lymphocytes # (A) 2.01 X 10*3/uL (0.90-5.00); Lymphocytes % (A) 18.9 %; MCH 28.9 pg (27.0-32.0); MCHC 30.3 g/dL (32.0-37.0); MCV 95.2 FL (80.0-97.0); Mean Platelet Volume 10.6 FL (9.5-12.2); Monocytes # (A) 0.93 X 10*3/uL (0.20-1.00); Monocytes % (A) 8.7 %; NRBC Per 100 WBC 0 X 10*3/uL (0.00-0.01); Neutrophils % (A) 68.6 %; Platelet Count 306 X 10*3/uL (140-440); RBC 2.91 X 10*6/uL (4.10-5.20); RDW 15.1 % (11.5-14.5); WBC 10.65 X 10*3/uL (4.50-10.00)
[2023-10-09 12:08] LABS: Blood Urea Nitrogen 24.3 mg/dL (9.0-27.0); Calcium 8.2 mg/dL (8.7-10.3); Carbon Dioxide 30.8 mmol/L (21.6-31.8); Chloride 102 mmol/L (96-109); Glucose 89 mg/dL (70-110); Potassium 3.7 mmol/L (3.5-5.5); Sodium 141 mmol/L (135-145)
[2023-10-09 12:20] VITALS: PULSE 84
--- NOTE | 2023-10-09 15:02 | PN ---
PROGRESS NOTE SUBJECTIVE: The patient was started on Augmentin and doxycycline. Possible discharge home once her urinary retention and constipation resolved. She will be able to go home with home PT and OT. OBJECTIVE: VITAL SIGNS: She is 98% on 2 L, pulse 80 to 90. CARDIOVASCULAR: S1 and S2. LUNGS: Scattered rhonchi and wheeze. HEMATOLOGY: 2 to 3+ edema. intact. GI: Soft and nontender. PLAN: Continue current treatment. Prognosis is guarded. Follow up in the next 24 to 48 hours. Please see further orders. MMODL / IJN: [id number] /
--- NOTE | 2023-10-09 16:01 | P.PN ---
Subjective Progress Note Date: 10/09/23 Principal diagnosis: Reason for follow-up with right lower extremity wound and concern for cellulitis Patient is a 78-year-old female with a past medical history signific ant for diabetes mellitus hypertension hyperlipidemia CVA TIA who presented to hospital right lower extremity wound and concern for possible cellulitis On today's evaluation that is 10/09/2023, the patient denies any fever or any chills, the patient is breathing comfortably on 2 L nasal cannula supplemental oxygen, patient denies chest pain shortness of breath and no significant cough or sputum production, patient denies Abdominal pain, no nausea/vomiting and denies having any diarrhea, denies any worsening pain to the right leg wound He did have a white count of 10.65, creatinine 0.6, local culture from the right leg is growing MRSA and enterococcus Objective - Vital Signs Vital signs: Vital Signs Temp 97.8 F 10/09/23 07:23 Pulse 84 10/09/23 12:02 Resp 19 10/09/23 07:23 BP 113/72 10/09/23 07:23 Pulse Ox 98 10/09/23 08:14 FiO2 Intake & Output 10/08/23 10/09/23 10/09/23 18:59 06:59 18:59 Output Total 600 700 Balance -600 -700 Output: Urine 600 700 Straight 300 Other: Voiding Method Indwelling Catheter External Catheter Incontinent External Catheter # Bowel Movements 1 - Exam GENERAL DESCRIPTION: An elderly female lying in bed in no distress RESPIRATORY SYSTEM: Unlabored breathing , clear to auscultation anteriorly HEART: S1 S2 regular rate and rhythm , ABDOMEN: Soft , no tenderness EXTREMITIES: Right posterior leg wound is currently dressed, nursing some mention improvement in the wound at the time of dressing changes - Labs CBC & Chem 7: 10/09/23 07:54 10/09/23 07:54 Labs: Abnormal Lab Results - Last 24 Hours (Table) 10/08/23 10/08/23 10/09/23 Range/Units 16:33 20:40 06:21 WBC (4.50-10.00) X 10*3/uL RBC (4.10-5.20) X 10*6/uL Hgb (12.0-15.0) g/dL Hct (37.2-46.3) % MCHC (32.0-37.0) g/dL RDW (11.5-14.5) % PT (10.0-12.5) sec INR (<1.2) BUN/Creatinine Ratio (12.00-20.00) Ratio POC Glucose (mg/dL) 130 H 214 H 136 H (70-110) mg/dL Calcium (8.7-10.3) mg/dL C-Reactive Protein (0.00-0.80) mg/dL 10/09/23 10/09/23 10/09/23 Range/Units 07:54 07:54 07:54 WBC 10.65 H (4.50-10.00) X 10*3/uL RBC 2.91 L (4.10-5.20) X 10*6/uL Hgb 8.4 L (12.0-15.0) g/dL Hct 27.7 L (37.2-46.3) % MCHC 30.3 L (32.0-37.0) g/dL RDW 15.1 H (11.5-14.5) % PT 18.0 H (10.0-12.5) sec INR 1.8 H (<1.2) BUN/Creatinine Ratio 40.50 H (12.00-20.00) Ratio POC Glucose (mg/dL) (70-110) mg/dL Calcium 8.2 L (8.7-10.3) mg/dL C-Reactive Protein 2.50 H (0.00-0.80) mg/dL 10/09/23 Range/Units 11:33 WBC (4.50-10.00) X 10*3/uL RBC (4.10-5.20) X 10*6/uL Hgb (12.0-15.0) g/dL Hct (37.2-46.3) % MCHC (32.0-37.0) g/dL RDW (11.5-14.5) % PT (10.0-12.5) sec INR (<1.2) BUN/Creatinine Ratio (12.00-20.00) Ratio POC Glucose (mg/dL) 124 H (70-110) mg/dL Calcium (8.7-10.3) mg/dL C-Reactive Protein (0.00-0.80) mg/dL Microbiology - Last 24 Hours (Table) 11/19/23 10:30 Anaerobic Culture - Final Leg - Right Regina albicans Assessment and Plan (1) Wound of right lower extremity Status: Acute Code(s): S81.801A - UNSPECIFIED OPEN WOUND, RIGHT LOWER LEG, INITIAL ENCOUNTER SNOMED Code(s): 036047241 (2) Cellulitis of right leg Status: Acute Code(s): L03.115 - CELLULITIS OF RIGHT LOWER LIMB SNOMED Code(s): 92241339474474704 Plan: 1patient presented hospital with right lower extremity wound and cellulitis denies any history of any trauma patient did have diffuse swelling to the lower extremity and up question of possible venous stasis ulcer versus pressure related and cellulitis likely from gram-positive skin kianna clinical suspicion low for gram-negative or MRSA infection 2wound care with a dry Aquacel dressing and Yair wrap to keep the swelling down 3-Local culture growing group D enterococcus that is penicillin sensitive and MRSA 4Patient to finish therapy with oral doxycycline and Augmentin and a close outpatient follow-up Dictation was produced using [employer] dictation software. please excuse any grammatical, word or spelling errors. Time with Patient: Less than 30
[2023-10-09] MEDS ORDERED: WARFARIN 2.5 MG TAB PO ONE (18:00)
[2023-10-09] MEDS ORDERED: VANCOMYCIN TROUGH DUE 1 EACH MISC MISCELLANE ONE (19:00)
== END 2023-10-09 15:22 | disposition home health service (06) | DRG 638 ==
LOC: EC 14:22 → 4SSUR 19:04
PROVIDERS: ADMIT Family Medicine; ATTEND Family Medicine
PROC: 05H933Z Insertion of Infusion Device into Right Brachial Vein, Percutaneous Approach (ICD-10-PCS; principal; 2023-10-07 13:00)
DX: E11.628 Type 2 diabetes mellitus with other skin complications (principal); I13.0 Hypertensive heart and chronic kidney disease with heart failure and stage 1 through stage 4 chronic kidney disease, or unspecified chronic kidney disease; I50.32 Chronic diastolic (congestive) heart failure; L03.115 Cellulitis of right lower limb; J96.10 Chronic respiratory failure, unspecified whether with hypoxia or hypercapnia; M48.56XA Collapsed vertebra, not elsewhere classified, lumbar region, initial encounter for fracture; E11.42 Type 2 diabetes mellitus with diabetic polyneuropathy; F32.A Depression, unspecified; E11.51 Type 2 diabetes mellitus with diabetic peripheral angiopathy without gangrene; J44.9 Chronic obstructive pulmonary disease, unspecified; B95.62 Methicillin resistant Staphylococcus aureus infection as the cause of diseases classified elsewhere; B95.2 Enterococcus as the cause of diseases classified elsewhere; E78.5 Hyperlipidemia, unspecified; E89.0 Postprocedural hypothyroidism; N18.9 Chronic kidney disease, unspecified; E11.22 Type 2 diabetes mellitus with diabetic chronic kidney disease; I25.10 Atherosclerotic heart disease of native coronary artery without angina pectoris; K21.9 Gastro-esophageal reflux disease without esophagitis; K59.00 Constipation, unspecified; R33.9 Retention of urine, unspecified; M21.372 Foot drop, left foot; M21.371 Foot drop, right foot; R32 Unspecified urinary incontinence; F41.9 Anxiety disorder, unspecified; M19.90 Unspecified osteoarthritis, unspecified site; M79.7 Fibromyalgia; Z79.01 Long term (current) use of anticoagulants; Z79.4 Long term (current) use of insulin; Z79.84 Long term (current) use of oral hypoglycemic drugs; Z79.890 Hormone replacement therapy; Z79.899 Other long term (current) drug therapy; Z86.73 Personal history of transient ischemic attack (TIA), and cerebral infarction without residual deficits; Z85.850 Personal history of malignant neoplasm of thyroid; Z87.442 Personal history of urinary calculi; Z87.81 Personal history of (healed) traumatic fracture; Z96.651 Presence of right artificial knee joint; Z28.311 Partially vaccinated for COVID-19; Z88.2 Allergy status to sulfonamides; Z88.8 Allergy status to other drugs, medicaments and biological substances; Z90.49 Acquired absence of other specified parts of digestive tract; Z79.52 Long term (current) use of systemic steroids
CPT/HCPCS: 36410; 36415; 71046; 76937; 80048; 80053; 81003; 82565; 83036; 83605; 83880; 85025; 85027; 85610; 85652; 86140; 87070; 87075; 87077; 87186; 87205; 94640; 94760; 99285

== ENCOUNTER 2023-11-23 18:10 | Inpatient (IN) | payer MEDICARE ==
--- NOTE | 2023-11-23 21:15 | XR ---
EXAMINATION TYPE: XR chest 2V DATE OF EXAM: 11/23/2023 COMPARISON: 10/01/2023 INDICATION: Acute mental status changes TECHNIQUE: Frontal and lateral views of the chest are obtained. FINDINGS: The heart size is normal. The pulmonary vasculature is normal. Small left lower lobe infiltrate may be present better visualized on the lateral projection. Clinical correlation is recommended. Lungs otherwise appear clear.. IMPRESSION: 1. May be a small posterior left lower lobe infiltrate. Correlate for pneumonia. Follow up exams can be performed.
[2023-11-23 21:34] LABS: ALT 66 U/L (4-34); AST 50 U/L (14-36); African American GFR (CKD) >90 (>60 ml/min/1.73 sqM); Albumin 3.6 g/dL (3.5-5.0); Alkaline Phosphatase 123 U/L (38-126); Anion Gap 13 mmol/L; Blood Urea Nitrogen 29 mg/dL (7-17); Calcium 9.6 mg/dL (8.4-10.2); Carbon Dioxide 26 mmol/L (22-30); Chloride 98 mmol/L (98-107); Glucose 135 mg/dL (74-99); Non-African American GFR(CKD) 87 (>60 ml/min/1.73 sqM); Potassium 4.9 mmol/L (3.5-5.1); Sodium 137 mmol/L (137-145); Total Bilirubin 0.6 mg/dL (0.2-1.3); Total Protein 6.6 g/dL (6.3-8.2)
[2023-11-23 21:36] LABS: Prothrombin Time 10.9 sec (10.0-12.5)
[2023-11-23 21:38] LABS: Basophils % (A) 0 %; Eosinophils % (A) 0 %; HCT 40.2 % (34.0-46.0); HGB 12.6 gm/dL (11.4-16.0); Lymphocytes # (A) 1.5 k/uL (1.0-4.8); Lymphocytes % (A) 8 %; MCH 28.4 pg (25.0-35.0); MCHC 31.3 g/dL (31.0-37.0); MCV 90.8 fL (80.0-100.0); Mean Platelet Volume 10.1; Monocytes # (A) 0.9 k/uL (0-1.0); Monocytes % (A) 5 %; Neutrophils # (A) 16.3 k/uL (1.3-7.7); Neutrophils % (A) 87 %; Platelet Count 259 k/uL (150-450); RBC 4.42 m/uL (3.80-5.40); RDW 14.7 % (11.5-15.5); WBC 18.8 k/uL (3.8-10.6)
[2023-11-23] MEDS ORDERED: LORazepam 2 MG/ML INJ IV STA (21:39)
[2023-11-23 21:54] LABS: Appearance,Urine Cloudy (Clear); Bacteria,Urine Many /hpf; Bilirubin,Urine Negative (Negative); Blood,Urine Small (Negative); Budding Yeast,Urine Many /hpf; Color,Urine Light Yellow; Glucose,Urine (UA) Negative (Negative); Hyaline Casts,Urine 37 /lpf (0-2); Ketones,Urine 2+ (Negative); Leukocyte Esterase,Urine Large (Negative); Mucus,Urine Many /hpf; Nitrite,Urine Positive (Negative); Protein,Urine 2+ (Negative); RBC,Urine 30 /hpf (0-5); Specific Gravity,Urine 1.022 (1.001-1.035); Squamous Epithelial Cell,Urine 2 /hpf (0-4); Urobilinogen,Urine <2.0 mg/dL (<2.0); WBC,Urine 74 /hpf (0-5)
[2023-11-23 22:06] LABS: Partial Thromboplastin Time 20.4 sec (22.0-30.0)
--- NOTE | 2023-11-23 22:24 | ED ---
General Adult HPI - General Chief complaint: Urogenital Stated complaint: UTI Time Seen by Provider: 11/23/23 19:15 Source: patient, RN notes reviewed Mode of arrival: EMS Limitations: altered mental status - History of Present Illness Initial comments: 78-year-old female with a past medical history significant for CVA/TIA, diabetes mellitus, fibromyalgia, hyperlipidemia and renal disease presents to the emergency department with a chief complaint of confusion. Patient presents via EMS from medical [facility]. History is limited due to patient being AxO x 1. It is unknown whether this is patient's baseline. Per EMS [facility] was concerned that patient has increased altered mental status and our concern for urinary tract infection. - Related Data Home Medications Medication Instructions Recorded Confirmed oxyCODONE-APAP 10-325MG [Percocet 1 tab PO QID 10/25/15 10/01/23 10-325 mg] ALPRAZolam [Xanax] 0.5 mg PO BID PRN 08/27/17 10/01/23 Levothyroxine Sodium 150 mcg PO DAILY 10/01/19 10/01/23 Ascorbic Acid [Vitamin C] 500 mg PO DAILY 09/15/23 10/01/23 Atorvastatin [Lipitor] 10 mg PO HS 09/15/23 10/01/23 Budesonide [Pulmicort] 0.5 mg INHALATION RT-BID 09/15/23 10/01/23 Cholecalciferol [Vitamin D3 (25 50 mcg PO DAILY 09/15/23 10/01/23 Mcg = 1000 Iu)] Fluticasone Propion/Salmeterol 1 puff INHALATION RT-BID 09/15/23 10/01/23 [Wixela 500-50 Inhub] Furosemide [Lasix] 20 mg PO AC-SUPPER 09/15/23 10/01/23 Furosemide [Lasix] 40 mg PO DAILY 09/15/23 10/01/23 INSULIN LISPRO (HumaLOG) [humaLOG] 15 units SQ AC-TID 09/15/23 10/01/23 INSULIN LISPRO (HumaLOG) [humaLOG] See Protocol SQ ACHS 09/15/23 10/01/23 Insulin Glargine,Hum.rec.anlog 40 units SQ HS 09/15/23 10/01/23 [Lantus Solostar Pen] Ipratropium-Albuterol Nebulize 3 ml INHALATION RT-QID 09/15/23 10/01/23 [Duoneb 0.5 mg-3 mg/3 ml Soln] Lactobacillus Acidophilus 1 cap PO BID 09/15/23 10/01/23 [Acidophilus Probiotic] Metoclopramide HCl [Reglan] 5 mg PO QID 09/15/23 10/01/23 Nortriptyline [Pamelor] 25 mg PO HS 09/15/23 10/01/23 Omeprazole [PriLOSEC] 40 mg PO BID 09/15/23 10/01/23 Sennosides [Senokot] 17.2 mg PO DAILY PRN 09/15/23 10/01/23 Tirzepatide [Mounjaro] 2.5 mg SQ WE 09/15/23 10/01/23 dilTIAZem HCL 60 mg PO QID 09/15/23 10/01/23 metFORMIN HCL [Glucophage] 500 mg PO BID 09/15/23 10/01/23 methocarbamoL 500 mg PO TID PRN 09/15/23 10/01/23 polyethylene glycoL 3350 [Miralax] 17 gm PO DAILY 09/15/23 10/01/23 predniSONE [Deltasone] 20 mg PO DAILY 09/15/23 10/01/23 Gabapentin 600 mg PO TID 10/01/23 10/01/23 Previous Rx's Medication Instructions Recorded Warfarin [Coumadin] 2.5 mg PO HS #0 11/28/19 Metoprolol Succinate (ER) [Toprol 50 mg PO DAILY 90 Days #90 12/10/20 XL] tab.er.24h Amoxic-Pot Clav 875-125Mg 1 tab PO Q12HR 10 Days #20 tab 10/08/23 [Augmentin 875-125] Doxycycline Hyclate 100 mg PO BID 10 Days #20 tab 10/08/23 Acetaminophen Tab [Tylenol] 650 mg PO Q6HR PRN tab 10/09/23 INSULIN ASPART (NovoLOG) [NovoLOG 15 unit SQ AC-TID each 10/09/23 (formulary)] Lactulose [Cephulac] 20 gm PO BID 30 Days #60 ml 10/09/23 Nystatin 100,000 Unit/gm Powd 1 applic TOPICAL TID 30 Days #100 10/09/23 [Mycostatin Powder] each Tamsulosin [Flomax] 0.4 mg PO PC-BRKFST 30 Days #30 cap 10/09/23 Allergies Allergy/AdvReac Type Severity Reaction Status Date / Time nickel [Nickel] Allergy Rash/Hives Verified 11/23/23 22:54 adhesive tape AdvReac blister Verified 11/23/23 22:54 duloxetine HCl AdvReac Hallucinati Verified 11/23/23 22:54 [From Cymbalta] ons sertraline HCl [From Zoloft] AdvReac Hallucinati Verified 11/23/23 22:54 ons vortioxetine hydrobromide AdvReac Hallucinati Verified 11/23/23 22:54 [From Brintellix] ons Review of Systems ROS Statement: Those systems with pertinent positive or pertinent negative responses have been documented in the HPI. ROS Other: All systems not noted in ROS Statement are negative. Past Medical History Past Medical History: Blood Disorder, Cancer, CVA/TIA, Diabetes Mellitus, Fibromyalgia, GERD/Reflux, Hyperlipidemia, Osteoarthritis (OA), Renal Disease, Syncope, Thyroid Disorder, Vascular Disorder Additional Past Medical History / Comment(s): with L5 compression fracture and L3 indetermined age compression fracture, bilateral lower extremity weakness, bilateral foot drop. 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 History of Any Multi-Drug Resistant Organisms: MRSA Date of last positivie culture/infection: 10/04/23 MDRO Source:: Right Leg Past Surgical History: Adenoidectomy, Appendectomy, Bowel Resection, Cholecystectomy, Hysterectomy, Joint Replacement, Orthopedic Surgery, Tonsillectomy Additional Past Surgical History / Comment(s): 10/26/15 suspension microlarygoscopy with benign bx, thyroidectomy, right TKA with infection-I&D then a revision, left ankle surgery WITH HARDWARE, 2 BOWEL SURGERIES, ORIF rt hip-07/2015, bilateral carpal tunnel releases, 1997 cardiac cath-normal, bilateral heel debridements, COLONOSCOPY, R flank "blood tumor" removed, bilateral cataract removals Past Anesthesia/Blood Transfusion Reactions: Postoperative Nausea & Vomiting (PONV) Additional Past Anesthesia/Blood Transfusion Reaction / Comment(s): Pt received blood after ORIF of the hip surgery Past Psychological History: Anxiety, Depression Smoking Status: Never smoker Past Alcohol Use History: None Reported Past Drug Use History: None Reported - Past Family History Father Family Medical History: Dementia Additional Family Medical History / Comment(s): Father of dementia at the age of 91 yrs. Mother Family Medical History: Osteoarthritis (OA), Renal Disease Additional Family Medical History / Comment(s): Mother after kidney stone surgery and went to [facility]. She was 90 yrs. old. General Exam - General Exam Comments Initial Comments: General: Alert, in no acute distress Head: atraumatic normocephalic. Eyes PERRL, EOMI intact, mucous membranes moist Respiratory: Lungs clear to auscultation bilaterally Cardiovascular: Rate regular Abdominal: Soft without guarding or rebound, we catheter in place with dark yellow urine in Sheehan collection bag Extremities: Normal inspection with full range of motion and normal capillary refill Neuroogic: alert and oriented 1 CN II-XII intact, Skin: warm dry and intact with normal color Limitations: altered mental status Course Vital Signs 11/23/23 11/23/23 18:12 23:40 Temperature 97.4 F L 97.1 F L Pulse Rate 110 H 93 Respiratory 20 20 Rate Blood Pressure 154/89 126/68 O2 Sat by Pulse 98 97 Oximetry - Reevaluation(s) Reevaluation #2: 11/23/23 22:30 Results reviewed. Sepsis protocol started at 2230. Reevaluation #3: 11/23/23 22:[address] Griffin who agrees and that the patient for admission. Patient was started on IV antibiotics. EKG Findings - EKG Comments: EKG Findings:: I interpreted the following: EKG performed at 23:57, rate 105 bpm sinus tachycardia Medical Decision Making - Medical Decision Making Was pt. sent in by a medical professional or institution (, PA, PRODUCE ASSOCIATE, urgent care, hospital, or [facility]...) When possible be specific @ [facility] Did you speak to anyone other than the patient for history (EMS, parent, family, police, friend...)? What history was obtained from this source @ -EMS Did you review nursing and triage notes (agree or disagree)? Why? @ -[I reviewed and agree with nursing and triage notes] Were old charts reviewed (outside hosp., previous admission, EMS record, old EKG, old radiological studies, urgent care reports/EKG's, [facility] records)? Report findings @ -[No old charts were reviewed] Differential Diagnosis (chest pain, altered mental status, abdominal pain women, abdominal pain men, vaginal bleeding, weakness, fever, dyspnea, syncope, headache, dizziness, GI bleed, back pain, seizure, CVA, palpatations, mental health, musculoskeletal)? @ -[not applicable] EKG interpreted by me (3pts min.). @ -[As above] X-rays interpreted by me (1pt min.). @ Yes CT interpreted by me (1pt min.). @ -Yes U/S interpreted by me (1pt. min.). @ -[None done] What testing was considered but not performed or refused? (CT, X-rays, U/S, labs)? Why? @ -[None] What meds were considered but not given or refused? Why? @ -[None] Did you discuss the management of the patient with other professionals (professionals i.e. , PA, PRODUCE ASSOCIATE, lab, RT, psych nurse, social services technician, forklift picker, teacher, residential care officer, keycase assembler)? Give summary @ Case discussed with Dr. Nelson who agrees and accepts the patient for admission Was smoking cessation discussed for >3mins.? @ -[No] Was critical care preformed (if so, how long)? @ -[No] Were there social determinants of health that impacted care today? How? (Homelessness, low income, unemployed, alcoholism, drug addiction, transportation, low edu. Level, literacy, decrease access to med. care, care home, rehab)? @ -[No] Was there de-escalation of care discussed even if they declined (Discuss DNR or withdrawal of care, Hospice)? DNR status @ -[No] What co-morbidities impacted this encounter? (DM, HTN, Smoking, COPD, CAD, Cancer, CVA, ARF, Chemo, Hep., AIDS, mental health diagnosis, sleep apnea, morbid obesity)? @ -cancer, DM, HTN, CVA Was patient admitted / discharged? Hospital course, mention meds given and route, prescriptions, significant lab abnormalities, going to OR and other pertinent info. @ Admission. This is a 78-year-old female who presents to the emergency department via EMS with altered mental status. She had a thorough his tory and physical exam performed. Patient is nonambulatory at baseline.. She is alert and oriented times to self, and does know she is in the hospital, however is unsure of which one. Patient had Sheehan catheter in place upon arrival. Patient's laboratory studies reveal WBC 18.8, hemoglobin 12.6, nose studies unremarkable sodium of 137 potassium 4.9 BUN 29, creatinine 0.62, ALT 66 urinalysis reveals cloudy appearance ketones positive nitrite positive leukocyte esterase and 74 WBCs. Culture is pending. At [id number] sepsis protocol was started. Patient's chest x-ray reveals left lower lobe pneumonia. Case was discussed with Dr. Griffin who agrees and accepts the patient for admission. Started on Rocephin and azithromycin. Blood cultures are pending. Case discussed with Dr. Cid, ED attending physical care Undiagnosed new problem with uncertain prognosis? @ -[No] Drug Therapy requiring intensive monitoring for toxicity (Heparin, Nitro, Insulin, Cardizem)? @ -[No] Were any procedures done? @ -[No] Diagnosis/symptom? @ -Altered Mental Status - Sepsis - Urinary Tract Infection - Left Lobe Pneumonia Acute, or Chronic, or Acute on Chronic? @ -Acute Uncomplicated (without systemic symptoms) or Complicated (systemic symptoms)? @ -[default] Side effects of treatment? @ -[No] Exacerbation, Progression, or Severe Exacerbation? @ -[No] Poses a threat to life or bodily function? How? (Chest pain, [place], [place], pneumonia, PE, COPD, DKA, ARF, appy, cholecystitis, CVA, Diverticulitis, Homicidal, Suicidal, threat to staff... and all critical care pts) @ -Yes, Sepsis - Lab Data Result diagrams: 11/23/23 19:50 11/23/23 19:50 Lab Results 11/23/23 11/23/23 11/23/23 Range/Units 19:50 19:50 19:50 WBC 18.8 H (3.8-10.6) k/uL RBC 4.42 (3.80-5.40) m/uL Hgb 12.6 (11.4-16.0) gm/dL Hct 40.2 (34.0-46.0) % MCV 90.8 (80.0-100.0) fL MCH 28.4 (25.0-35.0) pg MCHC 31.3 (31.0-37.0) g/dL RDW 14.7 (11.5-15.5) % Plt Count 259 (150-450) k/uL MPV 10.1 Neutrophils % 87 % Lymphocytes % 8 % Monocytes % 5 % Eosinophils % 0 % Basophils % 0 % Neutrophils # 16.3 H (1.3-7.7) k/uL Lymphocytes # 1.5 (1.0-4.8) k/uL Monocytes # 0.9 (0-1.0) k/uL Eosinophils # 0.0 (0-0.7) k/uL Basophils # 0.0 (0-0.2) k/uL PT (10.0-12.5) sec INR (<1.2) APTT (22.0-30.0) sec Sodium 137 (137-145) mmol/L Potassium 4.9 (3.5-5.1) mmol/L Chloride 98 (98-107) mmol/L Carbon Dioxide 26 (22-30) mmol/L Anion Gap 13 mmol/L BUN 29 H (7-17) mg/dL Creatinine 0.62 (0.52-1.04) mg/dL Est GFR (CKD-EPI)AfAm >90 (>60 ml/min/1.73 sqM) Est GFR (CKD-EPI)NonAf 87 (>60 ml/min/1.73 sqM) Glucose 135 H (74-99) mg/dL Plasma Lactic Acid Thanh (0.7-2.0) mmol/L Calcium 9.6 (8.4-10.2) mg/dL Total Bilirubin 0.6 (0.2-1.3) mg/dL AST 50 H (14-36) U/L ALT 66 H (4-34) U/L Alkaline Phosphatase 123 (38-126) U/L Total Protein 6.6 (6.3-8.2) g/dL Albumin 3.6 (3.5-5.0) g/dL Urine Color Light Yellow Urine Appearance Cloudy H (Clear) Urine pH 7.0 (5.0-8.0) Ur Specific Grayling 1.022 (1.001-1.035) Urine Protein 2+ H (Negative) Urine Glucose (UA) Negative (Negative) Urine Ketones 2+ H (Negative) Urine Blood Small H (Negative) Urine Nitrite Positive H (Negative) Urine Bilirubin Negative (Negative) Urine Urobilinogen <2.0 (<2.0) mg/dL Ur Leukocyte Esterase Large H (Negative) Urine RBC 30 H (0-5) /hpf Urine WBC 74 H (0-5) /hpf Ur Squamous Epith Cells 2 (0-4) /hpf Urine Bacteria Many H (None) /hpf Hyaline Casts 37 H (0-2) /lpf Urine Mucus Many H (None) /hpf Urine Yeast (Budding) Many H (None) /hpf Influenza Type A (PCR) (Not Detectd) Influenza Type B (PCR) (Not Detectd) RSV (PCR) (Not Detectd) SARS-CoV-2 (PCR) (Not Detectd) 11/23/23 11/23/23 11/23/23 Range/Units 19:50 19:50 19:50 WBC (3.8-10.6) k/uL RBC (3.80-5.40) m/uL Hgb (11.4-16.0) gm/dL Hct (34.0-46.0) % MCV (80.0-100.0) fL MCH (25.0-35.0) pg MCHC (31.0-37.0) g/dL RDW (11.5-15.5) % Plt Count (150-450) k/uL MPV Neutrophils % % Lymphocytes % % Monocytes % % Eosinophils % % Basophils % % Neutrophils # (1.3-7.7) k/uL Lymphocytes # (1.0-4.8) k/uL Monocytes # (0-1.0) k/uL Eosinophils # (0-0.7) k/uL Basophils # (0-0.2) k/uL PT 10.9 (10.0-12.5) sec INR 1.0 (<1.2) APTT 20.4 L (22.0-30.0) sec Sodium (137-145) mmol/L Potassium (3.5-5.1) mmol/L Chloride (98-107) mmol/L Carbon Dioxide (22-30) mmol/L Anion Gap mmol/L BUN (7-17) mg/dL Creatinine (0.52-1.04) mg/dL Est GFR (CKD-EPI)AfAm (>60 ml/min/1.73 sqM) Est GFR (CKD-EPI)NonAf (>60 ml/min/1.73 sqM) Glucose (74-99) mg/dL Plasma Lactic Acid Thanh 0.9 (0.7-2.0) mmol/L Calcium (8.4-10.2) mg/dL Total Bilirubin (0.2-1.3) mg/dL AST (14-36) U/L ALT (4-34) U/L Alkaline Phosphatase (38-126) U/L Total Protein (6.3-8.2) g/dL Albumin (3.5-5.0) g/dL Urine Color Urine Appearance (Clear) Urine pH (5.0-8.0) Ur Specific Grayling (1.001-1.035) Urine Protein (Negative) Urine Glucose (UA) (Negative) Urine Ketones (Negative) Urine Blood (Negative) Urine Nitrite (Negative) Urine Bilirubin (Negative) Urine Urobilinogen (<2.0) mg/dL Ur Leukocyte Esterase (Negative) Urine RBC (0-5) /hpf Urine WBC (0-5) /hpf Ur Squamous Epith Cells (0-4) /hpf Urine Bacteria (None) /hpf Hyaline Casts (0-2) /lpf Urine Mucus (None) /hpf Urine Yeast (Budding) (None) /hpf Influenza Type A (PCR) Not Detected (Not Detectd) Influenza Type B (PCR) Not Detected (Not Detectd) RSV (PCR) Not Detected (Not Detectd) SARS-CoV-2 (PCR) Not Detected (Not Detectd) Disposition Clinical Impression: UTI (urinary tract infection), AMS (altered mental status), Leukocytosis, Community acquired pneumonia Disposition: ADMITTED IP TO THIS HOSP Is patient prescribed a controlled substance at d/c from ED?: No Time of Disposition: 22:37
--- NOTE | 2023-11-23 22:26 | CT ---
EXAM: CT Head Without Intravenous Contrast CLINICAL HISTORY: ITS.REASON CT Reason: AMS TECHNIQUE: Axial computed tomography images of the head/brain without intravenous contrast. CTDI is 49.1 mGy and DLP is 1268.4 mGy-cm. This CT exam was performed using one or more of the following dose reduction techniques: automated exposure control, adjustment of the mA and/or kV according to patient size, and/or use of iterative reconstruction technique. COMPARISON: No relevant prior studies available. FINDINGS: No acute intracranial hemorrhage. No midline shift or mass effect. The territorial carey-white matter differentiation is maintained throughout. Age-related cerebral volume loss. Periventricular and subcortical white matter hypoattenuation, consistent with chronic microangiopathy. The visualized orbits appear grossly unremarkable. The calvarium is intact. The visualized paranasal sinuses and mastoid air cells are grossly clear. IMPRESSION: No acute intracranial hemorrhage, midline shift, or mass effect.
[2023-11-23] MEDS ORDERED: PNEUMONIA PROTOCOL UTILIZED 1 EACH MISC PO PRN (22:37)
[2023-11-23] MEDS: SODIUM CHLORIDE 0.9% 1,000 ML IV SCH (23:31)
[2023-11-23] MEDS ORDERED: AZITHROMYCIN 500 MG in SODIUM CHLORIDE 0.9% 250 ML IVPB STA (23:56)
[2023-11-24] MEDS ORDERED: KETOROLAC 15 MG/ML 1 ML VIAL IVP STA (01:25)
[2023-11-24] MEDS ORDERED: MORPHINE SULFATE 4 MG/ML SYRINGE IVP STA (03:08)
[2023-11-24] MEDS ORDERED: MORPHINE SULFATE 4 MG/ML SYRINGE IVP PRN (03:08)
[2023-11-24] MEDS: LEVOTHYROXINE 75 MCG TAB PO SCH (06:07)
[2023-11-24] MEDS ORDERED: BUDESONIDE 0.5 MG/2 ML NEBU INHALATION SCH (08:00)
[2023-11-24] MEDS ORDERED: TAMSULOSIN 0.4 MG CAP.ER.24H PO SCH (08:30)
[2023-11-24] MEDS: DILTIAZEM ORAL 30 MG TAB PO SCH ×2 (08:45→20:55)
[2023-11-24] MEDS: METOPROLOL SUCCINATE (ER) 25 MG TAB.ER.24H PO SCH (08:45)
[2023-11-24] MEDS ORDERED: FUROSEMIDE 40 MG TAB PO SCH (09:00)
[2023-11-24] MEDS ORDERED: METOPROLOL SUCCINATE (ER) 50 MG TAB.ER.24H PO SCH (09:00)
[2023-11-24] MEDS ORDERED: DILTIAZEM ORAL 60 MG TAB PO SCH (09:00)
--- NOTE | 2023-11-24 10:26 | XR ---
EXAMINATION TYPE: XR chest 1V portable DATE OF EXAM: 11/24/2023 COMPARISON: 11/23/2023 INDICATION: Pneumonia TECHNIQUE: Single frontal view of the chest is obtained. FINDINGS: The heart size is normal. The pulmonary vasculature is normal. The lungs are clear. IMPRESSION: 1. No acute pulmonary process.
[2023-11-24 11:36] LABS: Glucose,Whole Blood 187 mg/dL (70-110)
[2023-11-24 17:17] LABS: Glucose,Whole Blood 260 mg/dL (70-110)
[2023-11-24] MEDS: FUROSEMIDE 20 MG TAB PO SCH (17:51)
[2023-11-24 19:22] LABS: Glucose,Whole Blood 285 mg/dL (70-110)
[2023-11-24] MEDS: ATORVASTATIN 10 MG TAB PO SCH (20:55)
[2023-11-24] MEDS: SODIUM CHLORIDE 0.9% 1,000 ML IV SCH (20:56)
[2023-11-25] MEDS: LEVOTHYROXINE 75 MCG TAB PO SCH (06:22)
--- NOTE | 2023-11-25 08:45 | P.CONS ---
History of Present Illness - Reason for Consult Consult date: 11/24/23 - History of Present Illness Patient is a 78-year-old female with a past medical history significant for CVA TIA diabetes mellitus hyperlipidemia history of bilateral lower extremity ulcer UTI, patient was brought into the hospital for evaluation of confusion patient currently resident of the local alf patient was noticed to be confused and with concern for possible UTI on presentation to the hospital patient was afebrile and no fever has been recorded subsequently patient was not tachycardic hypotensive or hypoxic did have white count of 18.8 creatinine was normal liver enzymes mildly elevated did have a positive UA influenza RSV and COVID testing was negative patient did have a chest x-ray sma ll posterior left lower lobe infiltrate correlate for pneumonia patient received a dose of ceftriaxone and Zithromax in the ER patient has been admitted to hospital infectious disease was consulted for further management of antibiotic therapy. At time my evaluation patient denies having any fever or any chills patient was able to advise me denies any headache or URI symptoms no chest pain shortness of breath or cough no nausea no vomiting no abdominal pain no diarrhea Past Medical History Past Medical History: Blood Disorder, Cancer, CVA/TIA, Diabetes Mellitus, Fibromyalgia, GERD/Reflux, Hyperlipidemia, Osteoarthritis (OA), Renal Disease, Syncope, Thyroid Disorder, Vascular Disorder Additional Past Medical History / Comment(s): with L5 compression fracture and L3 indetermined age compression fracture, bilateral lower extremity weakness, bilateral foot drop. 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 History of Any Multi-Drug Resistant Organisms: MRSA Year Discovered:: 10/04/23 MDRO Source:: Right Leg Past Surgical History: Adenoidectomy, Appendectomy, Bowel Resection, Cholecystectomy, Hysterectomy, Joint Replacement, Orthopedic Surgery, Tonsillectomy Additional Past Surgical History / Comment(s): 10/26/15 suspension microlarygoscopy with benign bx, thyroidectomy, right TKA with infection-I&D then a revision, left ankle surgery WITH HARDWARE, 2 BOWEL SURGERIES, ORIF rt hip-07/2015, bilateral carpal tunnel releases, 1997 cardiac cath-normal, bilateral heel debridements, COLONOSCOPY, R flank "blood tumor" removed, bilateral cataract removals Past Anesthesia/Blood Transfusion Reactions: Postoperative Nausea & Vomiting (PONV) Additional Past Anesthesia/Blood Transfusion Reaction / Comm: Pt received blood after ORIF of the hip surgery Past Psychological History: Anxiety, Depression Smoking Status: Never smoker Past Alcohol Use History: None Reported Past Drug Use History: None Reported - Past Family History Father Family Medical History: Dementia Additional Family Medical History / Comment(s): Father of dementia at the age of 91 yrs. Mother Family Medical History: Osteoarthritis (OA), Renal Disease Additional Family Medical History / Comment(s): Mother after kidney stone surgery and went to alf. She was 90 yrs. old. Medications and Allergies Home Medications Medication Instructions Recorded Confirmed Type oxyCODONE-APAP 10-325MG [Percocet 1 tab PO QID PRN 10/25/15 11/24/23 History 10-325 mg] ALPRAZolam [Xanax] 0.5 mg PO BID PRN 08/27/17 11/24/23 History Levothyroxine Sodium 150 mcg PO DAILY 10/01/19 11/24/23 History Ascorbic Acid [Vitamin C] 500 mg PO DAILY 09/15/23 11/24/23 History Atorvastatin [Lipitor] 10 mg PO HS 09/15/23 11/24/23 History Cholecalciferol [Vitamin D3 (25 50 mcg PO DAILY 09/15/23 11/24/23 History Mcg = 1000 Iu)] Furosemide [Lasix] 20 mg PO AC-SUPPER 09/15/23 11/24/23 History Insulin Glargine,Hum.rec.anlog 25 units SQ DAILY 09/15/23 11/24/23 History [Lantus Solostar Pen] Ipratropium-Albuterol Nebulize 3 ml INHALATION RT-QID 09/15/23 11/24/23 History [Duoneb 0.5 mg-3 mg/3 ml Soln] Lactobacillus Acidophilus 1 cap PO BID 09/15/23 11/24/23 History [Acidophilus Probiotic] Sennosides [Senokot] 17.2 mg PO DAILY PRN 09/15/23 11/24/23 History methocarbamoL 500 mg PO TID PRN 09/15/23 11/24/23 History predniSONE [Deltasone] 20 mg PO DAILY 09/15/23 11/24/23 History Benzocaine/Menthol Lozeng [Cepacol 1 lozenge MUCOUS MEM Q2H PRN 11/24/23 11/24/23 History lozenge] Benzonatate [Tessalon Perles] 100 mg PO TID PRN 11/24/23 11/24/23 History Carbidopa-Levodopa 25-100 mg 1 tab PO DAILY PRN 11/24/23 11/24/23 History [Sinemet 25-100] Escitalopram [Lexapro] 10 mg PO DAILY 11/24/23 11/24/23 History Insulin Lispro [humaLOG Kwikpen] See Protocol SQ AC-TID 11/24/23 11/24/23 History Insulin Lispro [humaLOG Kwikpen] See Protocol SQ ACHS 11/24/23 11/24/23 History Lactulose [Cephulac] 20 gm PO TID 11/24/23 11/24/23 History Lidocaine 4% Patch 1 patch TOPICAL DAILY 11/24/23 11/24/23 History Magnesium Oxide [Mag-Ox] 400 mg PO DAILY 11/24/23 11/24/23 History Metoprolol Succinate (ER) [Toprol 25 mg PO DAILY 11/24/23 11/24/23 History Xl] Miconazole Nitrate [Lotrimin AF 1 applic TOPICAL BID 11/24/23 11/24/23 History Powder] Midodrine [ProAmatine] 5 mg PO BID 11/24/23 11/24/23 History Multivitamins, Thera [Multivitamin 1 tab PO DAILY 11/24/23 11/24/23 History (formulary)] Omeprazole [PriLOSEC] 20 mg PO BID 11/24/23 11/24/23 History Potassium Chloride [Klor-Con 10 ER] 10 meq PO DAILY 11/24/23 11/24/23 History Pseudoephedrine HCl [Sudafed] 60 mg PO DAILY 11/24/23 11/24/23 History Sodium Chloride [[place]] 1 spray EA NOSTRIL Q6H PRN 11/24/23 11/24/23 History dilTIAZem HCL 30 mg PO BID 11/24/23 11/24/23 History guaiFENesin 400 mg PO BID 11/24/23 11/24/23 History Allergies Allergy/AdvReac Type Severity Reaction Status Date / Time nickel [Nickel] Allergy Rash/Hives Verified 11/24/23 07:37 adhesive tape AdvReac blister Verified 11/24/23 07:37 duloxetine HCl AdvReac Hallucinati Verified 11/24/23 07:37 [From Cymbalta] ons sertraline HCl [From Zoloft] AdvReac Hallucinati Verified 11/24/23 07:37 ons vortioxetine hydrobromide AdvReac Hallucinati Verified 11/24/23 07:37 [From Brintellix] ons Physical Exam Vitals: Vital Signs Temp Pulse Resp BP Pulse Ox 11/24/23 08:00 98 F 99 16 150/81 96 11/24/23 06:10 99.0 F 103 H 20 118/66 98 11/24/23 02:50 97.5 F L 110 H 18 145/96 100 11/23/23 23:40 97.1 F L 93 20 126/68 97 11/23/23 18:12 97.4 F L 110 H 20 154/89 98 Intake and Output 11/23/23 11/24/23 11/24/23 22:59 06:59 14:59 Other: Voiding Method Indwelling Catheter Weight 99.79 kg Results CBC & Chem 7: 11/23/23 19:50 11/23/23 19:50 Labs: Abnormal Lab Results - Last 24 Hours (Table) 11/23/23 11/23/23 11/23/23 Range/Units 19:50 19:50 19:50 WBC 18.8 H (3.8-10.6) k/uL Neutrophils # 16.3 H (1.3-7.7) k/uL APTT (22.0-30.0) sec BUN 29 H (7-17) mg/dL Glucose 135 H (74-99) mg/dL AST 50 H (14-36) U/L ALT 66 H (4-34) U/L Urine Appearance Cloudy H (Clear) Urine Protein 2+ H (Negative) Urine Ketones 2+ H (Negative) Urine Blood Small H (Negative) Urine Nitrite Positive H (Negative) Ur Leukocyte Esterase Large H (Negative) Urine RBC 30 H (0-5) /hpf Urine WBC 74 H (0-5) /hpf Urine Bacteria Many H (None) /hpf Hyaline Casts 37 H (0-2) /lpf Urine Mucus Many H (None) /hpf Urine Yeast (Budding) Many H (None) /hpf 11/23/23 Range/Units 19:50 WBC (3.8-10.6) k/uL Neutrophils # (1.3-7.7) k/uL APTT 20.4 L (22.0-30.0) sec BUN (7-17) mg/dL Glucose (74-99) mg/dL AST (14-36) U/L ALT (4-34) U/L Urine Appearance (Clear) Urine Protein (Negative) Urine Ketones (Negative) Urine Blood (Negative) Urine Nitrite (Negative) Ur Leukocyte Esterase (Negative) Urine RBC (0-5) /hpf Urine WBC (0-5) /hpf Urine Bacteria (None) /hpf Hyaline Casts (0-2) /lpf Urine Mucus (None) /hpf Urine Yeast (Budding) (None) /hpf Assessment and Plan Plan: 1patient presented to hospital with confusion and weakness did have elevated white count, positive UA and urinary symptoms concerning for a symptomatic UTI likely from enteric gram-negative pathogen 2-Rocephin 2 g daily while waiting for the culture to finalize We will follow on clinical condition and cultures to further adjust medication if needed Thank you for this consultation we will follow the patient along with you Dictation was produced using [employer] dictation software. please excuse any grammatical, word or spelling errors. Time with Patient: Greater than 30
[2023-11-25] MEDS ORDERED: AZITHROMYCIN 500 MG TAB PO SCH (09:00)
[2023-11-25] MEDS: METOPROLOL SUCCINATE (ER) 25 MG TAB.ER.24H PO SCH (09:15)
[2023-11-25] MEDS: DILTIAZEM ORAL 30 MG TAB PO SCH ×3 (10:04→20:20)
[2023-11-25 12:26] LABS: Glucose,Whole Blood 259 mg/dL (70-110)
[2023-11-25] MEDS ORDERED: CARBIDOPA-LEVODOPA 25-100 MG 1 EACH TAB PO PRN (14:55)
[2023-11-25] MEDS ORDERED: methocarbamoL 500 MG TAB PO PRN (14:55)
[2023-11-25] MEDS ORDERED: SENNOSIDES 8.6 MG TAB PO PRN (14:55)
[2023-11-25] MEDS: FUROSEMIDE 20 MG TAB PO SCH ×2 (15:40→17:06)
[2023-11-25] MEDS: PANTOPRAZOLE 40 MG TABLET PO SCH (15:41)
[2023-11-25] MEDS: IPRATROPIUM-ALBUTEROL 3 ML NEB INHALATION SCH ×2 (16:14→20:24)
[2023-11-25 16:56] LABS: Glucose,Whole Blood 264 mg/dL (70-110)
[2023-11-25] MEDS: MIDODRINE 5 MG TAB PO SCH (17:06)
[2023-11-25] MEDS: CEFEPIME 2 GM in SODIUM CHLORIDE 0.9% 100 ML IVPB SCH (17:06)
[2023-11-25 20:18] LABS: Glucose,Whole Blood 239 mg/dL (70-110)
[2023-11-25] MEDS: ATORVASTATIN 10 MG TAB PO SCH (20:20)
[2023-11-25] MEDS: LACTOBACILLUS ACIDOPHILUS/PECT 1 EACH CAPSULE PO SCH (20:20)
[2023-11-25] MEDS: ALPRAZolam 0.5 MG TAB PO PRN (21:42)
--- NOTE | 2023-11-25 22:20 | PN ---
PROGRESS NOTE SUBJECTIVE: Altered mental status. She is switched to cefepime after discussed with Dr. Gunderson for possible E coli ESBL sepsis, resistant to everything but meropenem at the other hospital last time she had UTI. We switched her antibiotics around. She possibly has pneumonia. CAT scan of the chest pending. Sugars in the mid 200s, PT OT has been ordered. OBJECTIVE: VITAL SIGNS: Blood pressure 150s/80s to 90s, O2 99, temp 98.4. CARDIOVASCULAR: S1, S2. LUNGS: Transmitted upper sounds. HEMATOLOGY: 2 to 3+ edema. No hemorrhage, midline shift, or mass effect. We will rehydrate her, give her antibiotics and monitor for next 24 to 48 hours to see if she improves. Prognosis guarded. MMODL / IJN: [id number] /
--- NOTE | 2023-11-25 23:08 | PN ---
PROGRESS NOTE ADDENDUM: She is admitted with altered mental status, acquired pneumonia, generalized weakness, altered mental status secondary to possible sepsis. History of atrial fib, history of ESBL UTIs, acute on chronic diastolic and systolic heart failure in the past, possible exacerbation. Prognosis is guarded. Please see further orders. She has a history of generalized weakness, diabetic foot infections, diabetic wound infections, etc. Hypertension, coronary artery disease, muscle spasms, electrolyte abnormalities. Prognosis guarded. Please see further orders. She has a history of orthostatic hypotension also. Medications as mentioned above. Please see further orders. MMODL / IJN: [id number] /
--- NOTE | 2023-11-25 23:36 | HP ---
HISTORY AND PHYSICAL HISTORY OF PRESENT ILLNESS: She came in with altered mental status to the emergency room for possible infection. [facility] was [facility] to [facility] about [facility]. She came back with altered mental status with decreased obtundation and decreased range of motion, unable to walk or get up to move her legs. She has mildly elevated LFTs. RSV culture testing was negative. Chest x-ray, left lower lobe infiltrate show healthcare-acquired pneumonia, admitted with acute hypoxemic respiratory failure, altered mental status, metabolic encephalopathy, and a history of COPD, asthma exacerbation. PAST MEDICAL HISTORY: Diabetes mellitus, CVA, TIA, fibromyalgia, GERD, osteoarthritis, renal disease, thyroid disorder, vascular disorder. REVIEW OF SYSTEMS: A 14-point review of systems, cough, congestion, shortness of breath, generalized weakness, unable to move legs. MEDICATIONS: Reviewed. LABORATORY DATA: White count is 18, hemoglobin is 12.6, BUN was 29, creatinine 0.62. PHYSICAL EXAMINATION: VITAL SIGNS: T-max 97.4, pulse rate 110, respiratory rate 20 to 25, blood pressure 118 to 150 over 60s to 80s. GENERAL: She is alert and oriented x0. CARDIOVASCULAR: S1, S2. LUNGS: Scattered rhonchi and wheeze. HEMATOLOGIC: 2+ edema. MUSCULOSKELETAL: 4/5 strength bilaterally. ASSESSMENT: Healthcare-acquired pneumonia, rule out urinary tract infection, most likely gram- negative with history of Extended-spectrum beta-lactamases, metabolic encephalopathy, broad-spectrum antibiotics, fluid rehydration etc. Prognosis guarded. PT, OT. KENNA / RUSSELL: [id number] /
[2023-11-26] MEDS: CEFEPIME 2 GM in SODIUM CHLORIDE 0.9% 100 ML IVPB SCH ×3 (00:39→15:24)
[2023-11-26] MEDS: SODIUM CHLORIDE 0.9% 1,000 ML IV SCH (04:10)
[2023-11-26] MEDS: DILTIAZEM ORAL 30 MG TAB PO SCH ×4 (07:25→20:59)
[2023-11-26 07:35] LABS: Glucose,Whole Blood 264 mg/dL (70-110)
[2023-11-26] MEDS: IPRATROPIUM-ALBUTEROL 3 ML NEB INHALATION SCH ×4 (07:38→18:27)
[2023-11-26] MEDS: LEVOTHYROXINE 75 MCG TAB PO SCH (08:37)
[2023-11-26] MEDS: PANTOPRAZOLE 40 MG TABLET PO SCH (08:37)
[2023-11-26] MEDS: MIDODRINE 5 MG TAB PO SCH ×2 (08:38→18:09)
[2023-11-26] MEDS: MULTIVITAMINS, THERA 1 EACH TAB PO SCH (08:39)
[2023-11-26] MEDS: METOPROLOL SUCCINATE (ER) 25 MG TAB.ER.24H PO SCH ×2 (08:39→08:49)
[2023-11-26] MEDS: POTASSIUM CHLORIDE ER 10 MEQ TAB.ER.PRT PO SCH (08:39)
[2023-11-26] MEDS: CHOLECALCIFEROL 25 MCG (1000 IU) TABLET PO SCH (08:39)
[2023-11-26] MEDS: ESCITALOPRAM 10 MG TAB PO SCH (08:39)
[2023-11-26] MEDS: predniSONE 20 MG TAB PO SCH (08:39)
[2023-11-26] MEDS: MAGNESIUM OXIDE 400 MG TAB PO SCH (08:39)
[2023-11-26] MEDS: LACTOBACILLUS ACIDOPHILUS/PECT 1 EACH CAPSULE PO SCH ×2 (08:40→20:44)
[2023-11-26] MEDS: LIDOCAINE 4% PATCH TOPICAL SCH (08:40)
[2023-11-26 09:24] LABS: Basophils # (A) 0.02 X 10*3/uL (0.00-0.10); Basophils % (A) 0.2 %; Eosinophils # (A) 0.24 X 10*3/uL (0.04-0.35); Eosinophils % (A) 2.7 %; HCT 36.1 % (37.2-46.3); HGB 11.3 g/dL (12.0-15.0); Lymphocytes # (A) 1.74 X 10*3/uL (0.90-5.00); Lymphocytes % (A) 19.3 %; MCH 28.2 pg (27.0-32.0); MCHC 31.3 g/dL (32.0-37.0); Mean Platelet Volume 12.1 FL (9.5-12.2); Monocytes # (A) 0.81 X 10*3/uL (0.20-1.00); NRBC Per 100 WBC 0 X 10*3/uL (0.00-0.01); Neutrophils # (A) 6.18 X 10*3/uL (1.80-7.70); Neutrophils % (A) 68.5 %; Platelet Count 249 X 10*3/uL (140-440); RBC 4.01 X 10*6/uL (4.10-5.20); RDW 14.8 % (11.5-14.5); WBC 9.02 X 10*3/uL (4.50-10.00)
[2023-11-26 11:14] LABS: ALT 52 U/L (8-44); AST 29 U/L (13-35); Albumin 3.5 g/dL (3.8-4.9); Albumin/Globulin Ratio 1.52 Ratio (1.60-3.17); Alkaline Phosphatase 83 U/L (41-126); Blood Urea Nitrogen 13.6 mg/dL (9.0-27.0); Carbon Dioxide 26.1 mmol/L (21.6-31.8); Chloride 100 mmol/L (96-109); Globulin 2.3 g/dL (1.6-3.3); Glucose 254 mg/dL (70-110); Potassium 3.8 mmol/L (3.5-5.5); Sodium 141 mmol/L (135-145); Total Bilirubin 0.4 mg/dL (0.3-1.2); Total Protein 5.8 g/dL (6.2-8.2)
[2023-11-26 11:43] LABS: Glucose,Whole Blood 284 mg/dL (70-110)
[2023-11-26] MEDS: FUROSEMIDE 20 MG TAB PO SCH ×2 (15:57→18:08)
--- NOTE | 2023-11-26 16:10 | P.PN ---
Subjective Progress Note Date: 11/25/23 Principal diagnosis: reason for follow-up is gram-negative UTI Patient is a 78-year-old female with a past medical history significant for CVA TIA diabetes mellitus hyperlipidemia history of bilateral lower extremity ulcer UTI, patient was brought into the hospital for evaluation of confusion, patient was noticed to have elevated white count and positive UA concerning for UTI. On today's evaluation that is 11/25/2023 patient denies any fever or any chills, the patient is breathing comfortably on 2 L nasal cannula oxygen patient denies any chest pain occasional cough no nausea vomiting abdominal pain no diarrhea. Patient white count of 14.8 as of yesterday no CBC was done today urine is growing gram-negative Objective - Vital Signs Vital signs: Vital Signs Temp 99.2 F 11/25/23 12:15 Pulse 84 11/25/23 12:15 Resp 16 11/25/23 12:15 BP 158/92 11/25/23 12:15 Pulse Ox 98 11/25/23 12:15 FiO2 Intake & Output 11/24/23 11/25/23 11/25/23 18:59 06:59 18:59 Intake Total 140 Output Total 1300 Balance 140 -1300 Weight 99.79 kg Intake: Intake, IV Titration 20 Amount Sodium Chloride 0.9% 1, 20 000 ml @ 20 mls/hr IV . Q24H [facility] Rx#:[id number] Oral 120 Output: Urine 1300 Other: Voiding Method Indwelling Catheter Indwelling Catheter - Exam GENERAL DESCRIPTION: An elderly female lying in bed in no distress RESPIRATORY SYSTEM: Unlabored breathing , decreased breath sounds at bases HEART: S1 S2 regular rate and rhythm , ABDOMEN: Soft , no tenderness EXTREMITIES: No edema feet - Labs CBC & Chem 7: 11/26/23 06:10 11/26/23 06:10 Labs: Abnormal Lab Results - Last 24 Hours (Table) 11/24/23 11/24/23 11/25/23 Range/Units 17:14 19:20 12:18 POC Glucose (mg/dL) 260 H 285 H 259 H (70-110) mg/dL Microbiology - Last 24 Hours (Table) 11/23/23 23:03 Blood Culture - Preliminary Blood 11/23/23 23:03 Blood Culture - Preliminary Blood 11/23/23 19:50 Urine Culture - Preliminary Urine,Voided Gram Neg Bacilli Assessment and Plan (1) Leukocytosis Current Visit: Yes Status: Acute Code(s): D72.829 - ELEVATED WHITE BLOOD CELL COUNT, UNSPECIFIED SNOMED Code(s): 911360568 (2) UTI (urinary tract infection) Current Visit: Yes Status: Acute Code(s): N39.0 - URINARY TRACT INFECTION, SITE NOT SPECIFIED SNOMED Code(s): 93218447 Plan: 1patient presented to hospital with confusion and weakness did have elevated white count, positive UA and urinary symptoms concerning for a symptomatic UTI likely from enteric gram-negative pathogen 2-patient evaluated due to cefepime keeping in mind her infection with resistant pathogen in the past while waiting for the culture to finalize Dictation was produced using [employer] dictation software. please excuse any grammatical, word or spelling errors. Time with Patient: Less than 30
--- NOTE | 2023-11-26 16:12 | P.PN ---
Subjective Progress Note Date: 11/26/23 Principal diagnosis: reason for follow-up is gram-negative UTI Patient is a 78-year-old female with a past medical history significant for CVA TIA diabetes mellitus hyperlipidemia history of bilateral lower extremity ulcer UTI, patient was brought into the hospital for evaluation of confusion, patient was noticed to have elevated white count and positive UA concerning for UTI. On today's evaluation that is 11/26/2023 patient remains to be afebrile, the patient is breathing comfortably on 2 L nasal cannula oxygen patient denies any chest pain shortness of breath, the patient did have occasional cough patient denies any nausea vomiting abdominal pain no diarrhea. Patient white count of normalized to 9.7, creatinine 0.5, urine culture with Pseudomonas Objective - Vital Signs Vital signs: Vital Signs Temp 98.2 F 11/26/23 14:37 Pulse 84 11/26/23 15:16 Resp 17 11/26/23 14:37 BP 145/82 11/26/23 14:37 Pulse Ox 97 11/26/23 14:37 FiO2 Intake & Output 11/25/23 11/26/23 11/26/23 18:59 06:59 18:59 Output Total 1000 1300 275 Balance -1000 -1300 -275 Output: Urine 1000 1300 275 Other: Voiding Method Indwelling Catheter Indwelling Catheter Indwelling Catheter # Bowel Movements 0 - Exam GENERAL DESCRIPTION: An elderly female lying in bed in no distress RESPIRATORY SYSTEM: Unlabored breathing , decreased breath sounds at bases HEART: S1 S2 regular rate and rhythm , ABDOMEN: Soft , no tenderness EXTREMITIES: No edema feet - Labs CBC & Chem 7: 11/26/23 06:10 11/26/23 06:10 Labs: Abnormal Lab Results - Last 24 Hours (Table) 11/25/23 11/25/23 11/26/23 Range/Units 16:55 20:16 06:10 RBC 4.01 L (4.10-5.20) X 10*6/uL Hgb 11.3 L (12.0-15.0) g/dL Hct 36.1 L (37.2-46.3) % MCHC 31.3 L (32.0-37.0) g/dL RDW 14.8 H (11.5-14.5) % Anion Gap (4.00-12.00) mmol/L Creatinine (0.6-1.5) mg/dL BUN/Creatinine Ratio (12.00-20.00) Ratio Glucose (70-110) mg/dL POC Glucose (mg/dL) 264 H 239 H (70-110) mg/dL ALT (8-44) U/L Total Protein (6.2-8.2) g/dL Albumin (3.8-4.9) g/dL Albumin/Globulin Ratio (1.60-3.17) Ratio 11/26/23 11/26/23 11/26/23 Range/Units 06:10 07:34 11:42 RBC (4.10-5.20) X 10*6/uL Hgb (12.0-15.0) g/dL Hct (37.2-46.3) % MCHC (32.0-37.0) g/dL RDW (11.5-14.5) % Anion Gap 14.90 H (4.00-12.00) mmol/L Creatinine 0.5 L (0.6-1.5) mg/dL BUN/Creatinine Ratio 27.20 H (12.00-20.00) Ratio Glucose 254 H (70-110) mg/dL POC Glucose (mg/dL) 264 H 284 H (70-110) mg/dL ALT 52 H (8-44) U/L Total Protein 5.8 L (6.2-8.2) g/dL Albumin 3.5 L (3.8-4.9) g/dL Albumin/Globulin Ratio 1.52 L (1.60-3.17) Ratio Microbiology - Last 24 Hours (Table) 11/23/23 23:03 Blood Culture - Preliminary Blood 11/23/23 23:03 Blood Culture - Preliminary Blood 11/23/23 19:50 Urine Culture - Final Urine,Voided Pseudomonas aeruginosa Assessment and Plan (1) Leukocytosis Current Visit: Yes Status: Acute Code(s): D72.829 - ELEVATED WHITE BLOOD CELL COUNT, UNSPECIFIED SNOMED Code(s): 257475286 (2) UTI (urinary tract infection) Current Visit: Yes Status: Acute Code(s): N39.0 - URINARY TRACT INFECTION, SITE NOT SPECIFIED SNOMED Code(s): 01252156 Plan: 1patient presented to hospital with confusion and weakness did have elevated white count, positive UA and urinary symptoms concerning for a symptomatic UTI likely from enteric gram-negative pathogen 2-patient urine culture has been finalized with Pseudomonas that is sensitive to cefepime to continue, keeping in mind the patient is on Lexapro that is interacting with oral Cipro will need midline and short course of IV cefepime on discharge Dictation was produced using [employer] dictation software. please excuse any grammatical, word or spelling errors. Time with Patient: Less than 30
--- NOTE | 2023-11-26 16:53 | CT ---
EXAMINATION TYPE: CT chest wo con CT DLP: 748 mGycm, Automated exposure control for dose reduction was used. DATE OF EXAM: 11/26/2023 1:06 PM COMPARISON: CT chest 12/06/2020 . CLINICAL INDICATION:Female, 78 years old with history of hap; PHH, pneumonia TECHNIQUE: Multiple axial images were obtained through the chest. Sagittal and coronal reformats were created for review. Contrast used: mL of (None if empty) Oral contrast used: (None if empty) FINDINGS: Examination limited by lack of IV contrast. Additional limitation from artifact since the patient's a darnell are by their sides. LUNGS/ PLEURA: Low lung volumes with bibasilar subsegmental atelectasis. Mild strandy opacities other emmanuel throughout both lungs with the appearance of scarring. There is no airspace consolidation, pleur al effusion, or pneumothorax seen. No sizable nodule or mass. AIRWAY: Central airways are patent. Calcified tracheobronchial tree. LOWER NECK: No significant findings. MEDIASTINUM: No gross evidence of adenopathy. Esophagus appears patulous. HEART: Mild cardiomegaly. Moderate coronary artery calcification and/or stents. No appreciable perica rdial effusion. VASCULATURE: Mild to moderate atherosclerotic calcifications of the aorta and branches. Ascending ao rta is 3 CM, descending is 2.4 CM. Aorta is considered normal in size. Pulmonary trunk measures 2.7 CM. Pulmonary trunk is normal in size. Vessels otherwise not further ass essed without contrast. SOFT TISSUES/LYMPH NODES: Unremarkable soft tissues. No axillary adenopathy. UPPER ABDOMEN: Partial eventration along the bilateral hemidiaphragms with elevation of the hepatic d ome and splenic flexure partially up into the chest. Cholecystectomy clips. Mild to moderate pancreat ic atrophy. Haziness over the upper abdominal fat believed to be artifactual. Mild thickening of the adrenals without evidence of mass. Slightly lobular appearance of the imaged kidneys. MUSCULOSKELETAL: No acute osseous abnormalities. Mild to moderate disc degeneration changes are prese nt throughout the thoracolumbar spine. Moderate bilateral shoulder arthropathy. IMPRESSION: 1. Decreased lung volumes with mild bibasilar atelectatic changes. Mild scattered scarring throughou t the lungs. 2. No evidence of an acute chest abnormality.
[2023-11-26 17:04] LABS: Glucose,Whole Blood 415 mg/dL (70-110)
[2023-11-26] MEDS ORDERED: DEXTROSE 50% SYRINGE 50 ML IVP PRN ×2 (17:38)
[2023-11-26] MEDS: INSULIN ASPART (NovoLOG) 100 UNIT/ML VIAL SQ SCH ×2 (18:08→20:45)
[2023-11-26] MEDS: oxyCODONE-APAP 10-325MG 1 EACH TAB PO PRN (18:19)
[2023-11-26 20:09] LABS: Glucose,Whole Blood 445 mg/dL (70-110)
[2023-11-26] MEDS: ATORVASTATIN 10 MG TAB PO SCH (20:45)
[2023-11-26] MEDS: ALPRAZolam 0.5 MG TAB PO PRN (21:00)
[2023-11-27] MEDS: SODIUM CHLORIDE 0.9% 1,000 ML IV SCH (00:04)
[2023-11-27] MEDS: CEFEPIME 2 GM in SODIUM CHLORIDE 0.9% 100 ML IVPB SCH ×4 (00:05→23:32)
[2023-11-27] MEDS: LEVOTHYROXINE 75 MCG TAB PO SCH (06:30)
[2023-11-27 07:30] LABS: Glucose,Whole Blood 226 mg/dL (70-110)
[2023-11-27] MEDS: IPRATROPIUM-ALBUTEROL 3 ML NEB INHALATION SCH ×4 (08:08→19:59)
[2023-11-27] MEDS: MULTIVITAMINS, THERA 1 EACH TAB PO SCH (08:18)
[2023-11-27] MEDS: MAGNESIUM OXIDE 400 MG TAB PO SCH (08:18)
[2023-11-27] MEDS: POTASSIUM CHLORIDE ER 10 MEQ TAB.ER.PRT PO SCH (08:18)
[2023-11-27] MEDS: METOPROLOL SUCCINATE (ER) 25 MG TAB.ER.24H PO SCH ×2 (08:18→08:19)
[2023-11-27] MEDS: LIDOCAINE 4% PATCH TOPICAL SCH (08:18)
[2023-11-27] MEDS: PANTOPRAZOLE 40 MG TABLET PO SCH (08:18)
[2023-11-27] MEDS: predniSONE 20 MG TAB PO SCH (08:18)
[2023-11-27] MEDS: INSULIN ASPART (NovoLOG) 100 UNIT/ML VIAL SQ SCH ×4 (08:18→20:29)
[2023-11-27] MEDS: LACTOBACILLUS ACIDOPHILUS/PECT 1 EACH CAPSULE PO SCH ×2 (08:18→20:29)
[2023-11-27] MEDS: CHOLECALCIFEROL 25 MCG (1000 IU) TABLET PO SCH (08:18)
[2023-11-27] MEDS: ESCITALOPRAM 10 MG TAB PO SCH (08:19)
[2023-11-27] MEDS: MIDODRINE 5 MG TAB PO SCH ×2 (08:19→17:28)
[2023-11-27] MEDS: DILTIAZEM ORAL 30 MG TAB PO SCH ×3 (08:19→20:29)
[2023-11-27] MEDS: BENZONATATE 100 MG CAP PO PRN (08:29)
[2023-11-27 12:19] LABS: Glucose,Whole Blood 255 mg/dL (70-110)
--- NOTE | 2023-11-27 15:35 | P.PN ---
Subjective Progress Note Date: 11/27/23 Principal diagnosis: reason for follow-up is gram-negative UTI Patient is a 78-year-old female with a past medical history significant for CVA TIA diabetes mellitus hyperlipidemia history of bilateral lower extremity ulcer UTI, patient was brought into the hospital for evaluation of confusion, patient was noticed to have elevated white count and positive UA concerning for UTI. On today's evaluation that is 11/27/2023 patient continues to be afebrile, the patient is breathing comfortably on 2 L nasal cannula oxygen however is complaining of shortness of breath today denies any chest pain did have occasional dry cough no nausea no vomiting no abdominal pain no diarrhea Patient white count of 9.02 creatinine 0.5 as of yesterday urine grew Pseudomonas Objective - Vital Signs Vital signs: Vital Signs Temp 98.3 F 11/27/23 12:57 Pulse 100 11/27/23 12:57 Resp 17 11/27/23 12:57 BP 121/75 11/27/23 12:57 Pulse Ox 94 L 11/27/23 12:57 FiO2 Intake & Output 11/26/23 11/27/23 11/27/23 18:59 06:59 18:59 Intake Total 590 Output Total 475 400 Balance -475 190 Intake: Oral 590 Output: Urine 475 400 Other: Voiding Method Indwelling Catheter Indwelling Catheter Indwelling Catheter - Exam GENERAL DESCRIPTION: An elderly female lying in bed in no distress RESPIRATORY SYSTEM: Unlabored breathing , decreased breath sounds at bases HEART: S1 S2 regular rate and rhythm , ABDOMEN: Soft , no tenderness EXTREMITIES: No edema feet - Labs CBC & Chem 7: 11/26/23 06:10 11/26/23 06:10 Labs: Abnormal Lab Results - Last 24 Hours (Table) 11/23/23 11/26/23 11/26/23 Range/Units 19:50 17:03 20:07 POC Glucose (mg/dL) 415 H 445 H (70-110) mg/dL Hemoglobin A1c 8.1 H (<=6.0) % 11/27/23 11/27/23 Range/Units 07:10 11:58 POC Glucose (mg/dL) 226 H 255 H (70-110) mg/dL Hemoglobin A1c (<=6.0) % Microbiology - Last 24 Hours (Table) 11/23/23 23:03 Blood Culture - Preliminary Blood 11/23/23 23:03 Blood Culture - Preliminary Blood Assessment and Plan (1) Leukocytosis Current Visit: Yes Status: Acute Code(s): D72.829 - ELEVATED WHITE BLOOD CELL COUNT, UNSPECIFIED SNOMED Code(s): 312821895 (2) UTI (urinary tract infection) Current Visit: Yes Status: Acute Code(s): N39.0 - URINARY TRACT INFECTION, SITE NOT SPECIFIED SNOMED Code(s): 17037797 Plan: 1patient presented to hospital with confusion and weakness did have elevated white count, positive UA and urinary symptoms concerning for a symptomatic UTI likely from enteric gram-negative pathogen 2-patient urine culture has been finalized with Pseudomonas that is sensitive to cefepime to continue, nursing staff to change her Sheehan catheter 3patient complaining of some shortness of breath CT of the chest did not show an acute abnormality Dictation was produced using [employer] dictation software. please excuse any grammatical, word or spelling errors. Time with Patient: Less than 30
[2023-11-27 16:46] LABS: Glucose,Whole Blood 322 mg/dL (70-110)
[2023-11-27] MEDS: FUROSEMIDE 20 MG TAB PO SCH ×2 (16:47→17:29)
[2023-11-27] MEDS: ALPRAZolam 0.5 MG TAB PO PRN ×2 (17:31→22:05)
[2023-11-27 20:24] LABS: Glucose,Whole Blood 369 mg/dL (70-110)
[2023-11-27] MEDS: ATORVASTATIN 10 MG TAB PO SCH (20:29)
[2023-11-27] MEDS: NYSTATIN 100,000 UNIT/GM POWD 15 GM TOPICAL SCH (20:29)
[2023-11-27] MEDS: oxyCODONE-APAP 10-325MG 1 EACH TAB PO PRN (23:32)
[2023-11-28] MEDS: LEVOTHYROXINE 75 MCG TAB PO SCH (06:16)
[2023-11-28] MEDS: SODIUM CHLORIDE 0.9% 1,000 ML IV SCH ×2 (06:18→23:37)
[2023-11-28 07:29] LABS: Glucose,Whole Blood 219 mg/dL (70-110)
[2023-11-28] MEDS: IPRATROPIUM-ALBUTEROL 3 ML NEB INHALATION SCH ×4 (07:58→18:18)
[2023-11-28] MEDS: predniSONE 20 MG TAB PO SCH (09:02)
[2023-11-28] MEDS: INSULIN ASPART (NovoLOG) 100 UNIT/ML VIAL SQ SCH ×4 (09:02→20:39)
[2023-11-28] MEDS: CHOLECALCIFEROL 25 MCG (1000 IU) TABLET PO SCH (09:02)
[2023-11-28] MEDS: MULTIVITAMINS, THERA 1 EACH TAB PO SCH (09:02)
[2023-11-28] MEDS: LACTOBACILLUS ACIDOPHILUS/PECT 1 EACH CAPSULE PO SCH ×2 (09:02→20:40)
[2023-11-28] MEDS: MIDODRINE 5 MG TAB PO SCH ×2 (09:03→18:06)
[2023-11-28] MEDS: PANTOPRAZOLE 40 MG TABLET PO SCH (09:03)
[2023-11-28] MEDS: CEFEPIME 2 GM in SODIUM CHLORIDE 0.9% 100 ML IVPB SCH ×3 (09:03→23:54)
[2023-11-28] MEDS: MAGNESIUM OXIDE 400 MG TAB PO SCH (09:03)
[2023-11-28] MEDS: ESCITALOPRAM 10 MG TAB PO SCH (09:03)
[2023-11-28] MEDS: POTASSIUM CHLORIDE ER 10 MEQ TAB.ER.PRT PO SCH (09:03)
[2023-11-28] MEDS: DILTIAZEM ORAL 30 MG TAB PO SCH ×2 (09:03→20:40)
[2023-11-28] MEDS: LIDOCAINE 4% PATCH TOPICAL SCH (09:04)
[2023-11-28] MEDS: METOPROLOL SUCCINATE (ER) 25 MG TAB.ER.24H PO SCH ×2 (09:05→09:20)
[2023-11-28] MEDS: NYSTATIN 100,000 UNIT/GM POWD 15 GM TOPICAL SCH ×2 (09:06→20:39)
--- NOTE | 2023-11-28 12:32 | P.PN ---
Subjective Progress Note Date: 11/28/23 Principal diagnosis: reason for follow-up is gram-negative UTI Patient is a 78-year-old female with a past medical history significant for CVA TIA diabetes mellitus hyperlipidemia history of bilateral lower extremity ulcer UTI, patient was brought into the hospital for evaluation of confusion, patient was noticed to have elevated white count and positive UA concerning for UTI. On today's evaluation that is 11/28/2023 patient remains to be afebrile, the patient is breathing comfortably on 2 L nasal cannula oxygen, patient be complaining of dry irritating cough unable to bring up any sputum no chest pain no nausea vomiting abdominal pain or diarrhea Patient white count of 9.02 creatinine 0.5 as of 11/26/2023, urine grew Pseudomonas Objective - Vital Signs Vital signs: Vital Signs Temp 98.2 F 11/28/23 07:29 Pulse 76 11/28/23 11:55 Resp 19 11/28/23 07:29 BP 153/82 11/28/23 07:29 Pulse Ox 92 L 11/28/23 07:29 FiO2 Intake & Output 11/27/23 11/28/23 11/28/23 18:59 06:59 18:59 Intake Total 540 590 Output Total 600 Balance 540 -10 Intake: Oral 540 590 Output: Urine 600 Other: Voiding Method Indwelling Catheter Indwelling Catheter Indwelling Catheter - Exam GENERAL DESCRIPTION: An elderly female lying in bed in no distress RESPIRATORY SYSTEM: Unlabored breathing , decreased breath sounds at bases HEART: S1 S2 regular rate and rhythm , ABDOMEN: Soft , no tenderness EXTREMITIES: No edema feet - Labs CBC & Chem 7: 11/26/23 06:10 11/26/23 06:10 Labs: Abnormal Lab Results - Last 24 Hours (Table) 11/27/23 11/27/23 11/28/23 Range/Units 16:41 20:23 07:27 POC Glucose (mg/dL) 322 H 369 H 219 H (70-110) mg/dL Assessment and Plan (1) Leukocytosis Current Visit: Yes Status: Acute Code(s): D72.829 - ELEVATED WHITE BLOOD CELL COUNT, UNSPECIFIED SNOMED Code(s): 606729213 (2) UTI (urinary tract infection) Current Visit: Yes Status: Acute Code(s): N39.0 - URINARY TRACT INFECTION, SITE NOT SPECIFIED SNOMED Code(s): 14846350 Plan: 1patient presented to hospital with confusion and weakness did have elevated white count, positive UA and urinary symptoms concerning for a symptomatic UTI likely from enteric gram-negative pathogen 2-patient urine culture has been finalized with Pseudomonas that is sensitive to cefepime to continue, repeat UA after change of Sheehan catheter 3patient complaining of cough shortness of breath CT of the chest did not show an acute abnormality, advised incentive spirometry Dictation was produced using [employer] dictation software. please excuse any grammatical, word or spelling errors. Time with Patient: Less than 30
[2023-11-28 12:44] LABS: Glucose,Whole Blood 257 mg/dL (70-110)
--- NOTE | 2023-11-28 12:47 | PN ---
PROGRESS NOTE DATE OF SERVICE: 11/28/2023 I am covering for Dr. Griffin. SUBJECTIVE: This is a 78-year-old woman, admitted with gram-negative UTI and Pseudomonas aeruginosa grown from the culture, which is rather poly-sensitive. The patient continues to be confused. The patient on broad spectrum IV antibiotics and multiple consultants are following the patient closely. Blood pressure is elevated. PAST MEDICAL HISTORY: Reviewed. REVIEW OF SYSTEMS: Could not be taken. The patient is still confused. CURRENT MEDICATIONS: Reviewed include DuoNeb, dose and rest of medications noted. PHYSICAL EXAMINATION: VITAL SIGNS: Pulse is 110, blood pressure is 153/80, respirations 18. CHEST: A few scattered rhonchi and crackles. ABDOMEN: Soft. NERVOUS SYSTEM: No focal deficits. LABORATORY DATA: White count is 902, glucose noted. ASSESSMENT: 1. Acute urinary tract infection with Pseudomonas, gram-negative. 2. Change in mental status, possible metabolic encephalopathy. 3. Diabetes mellitus, type 2, uncontrolled with hyperglycemia. 4. Cerebrovascular accident, transient ischemic attack. 5. Diabetes mellitus, type 2. 6. Gastroesophageal reflux disease. 7. Syncope. 8. L3 compression fracture. 9. Gait dysfunction. RECOMMENDATIONS AND DISCUSSION: This is a 78-year-old woman, who presented with multiple complex medical issues. The patient is on cefepime currently. I would recommend to continue current medications and continue symptomatic treatment. A CT brain which I reviewed showed no acute abnormalities. I would recommend repeat labs, PT, OT evaluation, possible ECF rehab. Dr. Griffin will follow on Thursday. MMODL / IJN: [id number] /
[2023-11-28 14:20] LABS: Appearance,Urine Clear (Clear); Bilirubin,Urine Negative (Negative); Blood,Urine Small (Negative); Budding Yeast,Urine Occasional /hpf; Calcium Oxalate Crystals,Urine Rare /hpf; Color,Urine Light Yellow; Glucose,Urine (UA) 2+ (Negative); Hyaline Casts,Urine 11 /lpf (0-2); Ketones,Urine 1+ (Negative); Leukocyte Esterase,Urine Small (Negative); Mucus,Urine Few /hpf; Nitrite,Urine Negative (Negative); PH, Urine 5.5 (5.0-8.0); Protein,Urine 1+ (Negative); RBC,Urine 8 /hpf (0-5); Specific Gravity,Urine 1.023 (1.001-1.035); Squamous Epithelial Cell,Urine <1 /hpf (0-4); Urobilinogen,Urine <2.0 mg/dL (<2.0); WBC,Urine 25 /hpf (0-5)
[2023-11-28 17:05] LABS: Glucose,Whole Blood 299 mg/dL (70-110)
[2023-11-28] MEDS: FUROSEMIDE 20 MG TAB PO SCH ×2 (18:05→18:12)
[2023-11-28 20:00] LABS: Glucose,Whole Blood 283 mg/dL (70-110)
[2023-11-28] MEDS: ATORVASTATIN 10 MG TAB PO SCH (20:40)
[2023-11-28] MEDS: oxyCODONE-APAP 10-325MG 1 EACH TAB PO PRN (20:40)
[2023-11-28] MEDS: ALPRAZolam 0.5 MG TAB PO PRN (20:40)
[2023-11-29] MEDS: LEVOTHYROXINE 75 MCG TAB PO SCH (06:10)
[2023-11-29 07:47] LABS: Glucose,Whole Blood 203 mg/dL (70-110)
[2023-11-29 08:02] LABS: African American GFR (CKD) >90 (>60 ml/min/1.73 sqM); Anion Gap 9 mmol/L; Blood Urea Nitrogen 20 mg/dL (7-17); Calcium 8.9 mg/dL (8.4-10.2); Carbon Dioxide 24 mmol/L (22-30); Chloride 105 mmol/L (98-107); Glucose 196 mg/dL (74-99); Non-African American GFR(CKD) 90 (>60 ml/min/1.73 sqM); Potassium 3.8 mmol/L (3.5-5.1); Sodium 138 mmol/L (137-145)
[2023-11-29] MEDS: IPRATROPIUM-ALBUTEROL 3 ML NEB INHALATION SCH ×4 (08:16→18:04)
[2023-11-29] MEDS: INSULIN ASPART (NovoLOG) 100 UNIT/ML VIAL SQ SCH ×4 (08:21→20:42)
[2023-11-29] MEDS: MAGNESIUM OXIDE 400 MG TAB PO SCH (08:22)
[2023-11-29] MEDS: predniSONE 20 MG TAB PO SCH (08:22)
[2023-11-29] MEDS: PANTOPRAZOLE 40 MG TABLET PO SCH (08:22)
[2023-11-29] MEDS: POTASSIUM CHLORIDE ER 10 MEQ TAB.ER.PRT PO SCH (08:22)
[2023-11-29] MEDS: METOPROLOL SUCCINATE (ER) 25 MG TAB.ER.24H PO SCH (08:22)
[2023-11-29] MEDS: CHOLECALCIFEROL 25 MCG (1000 IU) TABLET PO SCH (08:22)
[2023-11-29] MEDS: LACTOBACILLUS ACIDOPHILUS/PECT 1 EACH CAPSULE PO SCH ×2 (08:22→20:16)
[2023-11-29] MEDS: MULTIVITAMINS, THERA 1 EACH TAB PO SCH (08:22)
[2023-11-29] MEDS: NYSTATIN 100,000 UNIT/GM POWD 15 GM TOPICAL SCH ×2 (08:23→20:17)
[2023-11-29] MEDS: CEFEPIME 2 GM in SODIUM CHLORIDE 0.9% 100 ML IVPB SCH ×3 (08:24→23:26)
[2023-11-29] MEDS: MIDODRINE 5 MG TAB PO SCH ×2 (08:24→16:44)
[2023-11-29] MEDS: DILTIAZEM ORAL 30 MG TAB PO SCH ×2 (08:25→20:17)
[2023-11-29] MEDS: ESCITALOPRAM 10 MG TAB PO SCH (08:25)
[2023-11-29] MEDS: LIDOCAINE 4% PATCH TOPICAL SCH (08:25)
[2023-11-29 10:08] LABS: Basophils # (A) 0.02 X 10*3/uL (0.00-0.10); Basophils % (A) 0.4 %; Eosinophils # (A) 0.02 X 10*3/uL (0.04-0.35); Eosinophils % (A) 0.4 %; HCT 36.5 % (37.2-46.3); HGB 11.2 g/dL (12.0-15.0); Lymphocytes # (A) 0.43 X 10*3/uL (0.90-5.00); Lymphocytes % (A) 9.7 %; MCH 28.8 pg (27.0-32.0); MCHC 30.7 g/dL (32.0-37.0); MCV 93.8 FL (80.0-97.0); Mean Platelet Volume 11.8 FL (9.5-12.2); Monocytes # (A) 0.37 X 10*3/uL (0.20-1.00); Monocytes % (A) 8.3 %; NRBC Per 100 WBC 0 X 10*3/uL (0.00-0.01); Neutrophils # (A) 3.58 X 10*3/uL (1.80-7.70); Neutrophils % (A) 80.5 %; Platelet Count 151 X 10*3/uL (140-440); RBC 3.89 X 10*6/uL (4.10-5.20); RDW 15.5 % (11.5-14.5); WBC 4.45 X 10*3/uL (4.50-10.00)
[2023-11-29] MEDS: oxyCODONE-APAP 10-325MG 1 EACH TAB PO PRN (10:50)
[2023-11-29 11:53] LABS: Glucose,Whole Blood 210 mg/dL (70-110)
[2023-11-29 16:43] LABS: Glucose,Whole Blood 248 mg/dL (70-110)
[2023-11-29] MEDS: INSULIN DETEMIR (LEVEMIR) 100 UNIT/ML SYR SQ SCH (16:43)
[2023-11-29] MEDS: FUROSEMIDE 20 MG TAB PO SCH ×2 (16:43→16:44)
[2023-11-29 20:10] LABS: Glucose,Whole Blood 330 mg/dL (70-110)
[2023-11-29] MEDS: ATORVASTATIN 10 MG TAB PO SCH (20:16)
[2023-11-29] MEDS: ALPRAZolam 0.5 MG TAB PO PRN (20:16)
--- NOTE | 2023-11-29 20:52 | PN ---
PROGRESS NOTE SUBJECTIVE: This 78-year-old white female came in with altered mental status. She was started back on some of her home medications. She possibly has an ESBL pneumonia. We started on cefepime for UTI. She has a history of ESBL UTI, possibly has aspiration pneumonia. Medicines were restarted. Her mental status is improved with fluids and antibiotics. Prognosis is guarded. OBJECTIVE: CARDIOVASCULAR: S1, S2. LUNGS: Decreased breath sounds x4. HEMATOLOGY: Negative for Homans. PSYCH: Poor mood and affect. PLAN: Continue current treatment. Follow up in next 24 to 48 hours to see how patient does. If the patient continues to improve, possibly send home treated for pneumonia and UTI in PT OT at home. Prognosis guarded. MMODL / IJN: [id number] /
[2023-11-29] MEDS: SODIUM CHLORIDE 0.9% 1,000 ML IV SCH (22:12)
--- NOTE | 2023-11-30 02:07 | PN ---
PROGRESS NOTE DATE OF SERVICE: 11/29/2023 I am covering for Dr. Griffin. SUBJECTIVE: This is a 78-year-old woman who was admitted with acute UTI with Pseudomonas, continues to be confused. The patient is on empiric antibiotics. No chest pain, no palpitation. The patient is on cefepime. OBJECTIVE: VITAL SIGNS: Pulse is 82, blood pressure 118/72, respirations 16. CHEST: Clear to auscultation. CARDIOVASCULAR: S1, S2. ABDOMEN: Soft. NERVOUS SYSTEM: Diffusely weak. LABORATORY DATA: Reviewed. ASSESSMENT: 1. Acute urinary tract infection with Pseudomonas and gram-negative. 2. Change in mental status, acute metabolic encephalopathy. 3. Diabetes mellitus, type 2, uncontrolled with hyperglycemia. 4. CVA TIA. 5. Gastroesophageal reflux disease. 6. Syncope. 7. L3 compression fracture. 8. Gait dysfunction. 9. Full code. RECOMMENDATIONS: Recommended to continue current medications, continue symptomatic treatment. The blood sugar is improving at this time. I will recommend to continue the antibiotics. Repeat labs. Prognosis guarded. Further recommendations to follow. MMODL / IJN: [id number] /
[2023-11-30] MEDS: LEVOTHYROXINE 75 MCG TAB PO SCH (05:54)
[2023-11-30] MEDS: IPRATROPIUM-ALBUTEROL 3 ML NEB INHALATION SCH ×5 (07:55→20:06)
[2023-11-30 08:09] LABS: Glucose,Whole Blood 117 mg/dL (70-110)
[2023-11-30] MEDS: INSULIN ASPART (NovoLOG) 100 UNIT/ML VIAL SQ SCH ×4 (08:10→21:16)
--- NOTE | 2023-11-30 08:12 | P.PN ---
Subjective Progress Note Date: 11/29/23 Principal diagnosis: reason for follow-up is gram-negative UTI Patient is a 78-year-old female with a past medical history significant for CVA TIA diabetes mellitus hyperlipidemia history of bilateral lower extremity ulcer UTI, patient was brought into the hospital for evaluation of confusion, patient was noticed to have elevated white count and positive UA concerning for UTI. On today's evaluation that is 11/29/2023, the patient remains to be afebrile, the patient is breathing comfortably on r 2 L nasal cannula oxygen, the patient denies any shortness of breath, the patient denies chest pain or any cough , patient denies any nausea/vomiting abdominal pain or diarrhea Patient white count of 4.45 creatinine 0.56, urine grew Pseudomonas Objective - Vital Signs Vital signs: Vital Signs Temp 97.5 F L 11/29/23 13:04 Pulse 84 11/29/23 15:47 Resp 16 11/29/23 13:04 BP 118/75 11/29/23 13:04 Pulse Ox 99 11/29/23 13:04 FiO2 Intake & Output 11/28/23 11/29/23 11/29/23 18:59 06:59 18:59 Intake Total 590 Output Total 400 500 200 Balance -400 90 -200 Intake: Oral 590 Output: Urine 400 500 200 Other: Voiding Method Indwelling Catheter Indwelling Catheter Indwelling Catheter - Exam GENERAL DESCRIPTION: An elderly female lying in bed in no distress RESPIRATORY SYSTEM: Unlabored breathing , decreased breath sounds at bases HEART: S1 S2 regular rate and rhythm , ABDOMEN: Soft , no tenderness EXTREMITIES: No edema feet - Labs CBC & Chem 7: 11/29/23 07:13 11/29/23 07:13 Labs: Abnormal Lab Results - Last 24 Hours (Table) 11/28/23 11/29/23 11/29/23 Range/Units 19:58 07:13 07:13 WBC 4.45 L (4.50-10.00) X 10*3/uL RBC 3.89 L (4.10-5.20) X 10*6/uL Hgb 11.2 L (12.0-15.0) g/dL Hct 36.5 L (37.2-46.3) % MCHC 30.7 L (32.0-37.0) g/dL RDW 15.5 H (11.5-14.5) % Lymphocytes # 0.43 L (0.90-5.00) X 10*3/uL Eosinophils # 0.02 L (0.04-0.35) X 10*3/uL BUN 20 H (7-17) mg/dL Glucose 196 H (74-99) mg/dL POC Glucose (mg/dL) 283 H (70-110) mg/dL 11/29/23 11/29/23 11/29/23 Range/Units 07:45 11:51 16:42 WBC (4.50-10.00) X 10*3/uL RBC (4.10-5.20) X 10*6/uL Hgb (12.0-15.0) g/dL Hct (37.2-46.3) % MCHC (32.0-37.0) g/dL RDW (11.5-14.5) % Lymphocytes # (0.90-5.00) X 10*3/uL Eosinophils # (0.04-0.35) X 10*3/uL BUN (7-17) mg/dL Glucose (74-99) mg/dL POC Glucose (mg/dL) 203 H 210 H 248 H (70-110) mg/dL Microbiology - Last 24 Hours (Table) 11/23/23 23:03 Blood Culture - Final Blood 11/23/23 23:03 Blood Culture - Final Blood Assessment and Plan (1) Leukocytosis Current Visit: Yes Status: Acute Code(s): D72.829 - ELEVATED WHITE BLOOD CELL COUNT, UNSPECIFIED SNOMED Code(s): 971910837 (2) UTI (urinary tract infection) Current Visit: Yes Status: Acute Code(s): N39.0 - URINARY TRACT INFECTION, SITE NOT SPECIFIED SNOMED Code(s): 52232038 Plan: 1patient presented to hospital with confusion and weakness did have elevated wh ite count, positive UA and urinary symptoms concerning for a symptomatic UTI likely from enteric gram-negative pathogen 2-patient urine culture has been finalized with Pseudomonas that is sensitive to cefepime to continue, repeat UA after change of Sheehan catheter has been obtained and cultures are currently pending white count is normal Dictation was produced using [employer] software. please excuse any grammatical, word or spelling errors. Time with Patient: Less than 30
[2023-11-30] MEDS: predniSONE 20 MG TAB PO SCH (08:55)
[2023-11-30] MEDS: INSULIN DETEMIR (LEVEMIR) 100 UNIT/ML SYR SQ SCH (08:55)
[2023-11-30] MEDS: oxyCODONE-APAP 10-325MG 1 EACH TAB PO PRN (08:55)
[2023-11-30] MEDS: MAGNESIUM OXIDE 400 MG TAB PO SCH (08:55)
[2023-11-30] MEDS: CHOLECALCIFEROL 25 MCG (1000 IU) TABLET PO SCH (08:55)
[2023-11-30] MEDS: BENZONATATE 100 MG CAP PO PRN (08:56)
[2023-11-30] MEDS: METOPROLOL SUCCINATE (ER) 25 MG TAB.ER.24H PO SCH (08:56)
[2023-11-30] MEDS: LACTOBACILLUS ACIDOPHILUS/PECT 1 EACH CAPSULE PO SCH ×2 (08:56→21:16)
[2023-11-30] MEDS: PANTOPRAZOLE 40 MG TABLET PO SCH (08:56)
[2023-11-30] MEDS: MIDODRINE 5 MG TAB PO SCH ×2 (08:56→17:40)
[2023-11-30] MEDS: NYSTATIN 100,000 UNIT/GM POWD 15 GM TOPICAL SCH ×2 (08:56→21:17)
[2023-11-30] MEDS: MULTIVITAMINS, THERA 1 EACH TAB PO SCH (08:56)
[2023-11-30] MEDS: POTASSIUM CHLORIDE ER 10 MEQ TAB.ER.PRT PO SCH (08:56)
[2023-11-30] MEDS: CEFEPIME 2 GM in SODIUM CHLORIDE 0.9% 100 ML IVPB SCH ×2 (08:57→21:15)
[2023-11-30] MEDS: ESCITALOPRAM 10 MG TAB PO SCH (08:57)
[2023-11-30] MEDS: DILTIAZEM ORAL 30 MG TAB PO SCH ×2 (08:57→21:16)
[2023-11-30] MEDS: LIDOCAINE 4% PATCH TOPICAL SCH (08:58)
[2023-11-30 11:09] LABS: Basophils # (A) 0 X 10*3/uL (0.00-0.10); Basophils % (A) 0 %; Eosinophils # (A) 0.02 X 10*3/uL (0.04-0.35); Eosinophils % (A) 0.4 %; HCT 34.5 % (37.2-46.3); HGB 10.5 g/dL (12.0-15.0); Lymphocytes # (A) 0.93 X 10*3/uL (0.90-5.00); Lymphocytes % (A) 19.9 %; MCH 28.5 pg (27.0-32.0); MCHC 30.4 g/dL (32.0-37.0); MCV 93.8 FL (80.0-97.0); Mean Platelet Volume 12.3 FL (9.5-12.2); Monocytes # (A) 0.61 X 10*3/uL (0.20-1.00); Monocytes % (A) 13.1 %; NRBC Per 100 WBC 0 X 10*3/uL (0.00-0.01); Neutrophils # (A) 3.09 X 10*3/uL (1.80-7.70); Neutrophils % (A) 66.2 %; Platelet Count 121 X 10*3/uL (140-440); RBC 3.68 X 10*6/uL (4.10-5.20); RDW 15.1 % (11.5-14.5); WBC 4.67 X 10*3/uL (4.50-10.00)
[2023-11-30 11:25] LABS: BUN/Creat Ratio 29.71 Ratio (12.00-20.00); Blood Urea Nitrogen 20.8 mg/dL (9.0-27.0); Calcium 9.1 mg/dL (8.7-10.3); Chloride 106 mmol/L (96-109); Glucose 133 mg/dL (70-110); Potassium 3.9 mmol/L (3.5-5.5); Sodium 142 mmol/L (135-145)
[2023-11-30 11:49] LABS: Glucose,Whole Blood 168 mg/dL (70-110)
[2023-11-30 16:26] VITALS: BMI 43.0
[2023-11-30 16:40] LABS: Glucose,Whole Blood 242 mg/dL (70-110)
[2023-11-30] MEDS: FUROSEMIDE 20 MG TAB PO SCH ×2 (17:40→17:41)
[2023-11-30 20:04] LABS: Glucose,Whole Blood 373 mg/dL (70-110)
[2023-11-30] MEDS: ATORVASTATIN 10 MG TAB PO SCH (21:16)
[2023-11-30] MEDS: ALPRAZolam 0.5 MG TAB PO PRN (21:17)
--- NOTE | 2023-12-01 01:38 | PN ---
PROGRESS NOTE SUBJECTIVE: This is a white female with multiple medical problems, came in for infection, CVA, TIA, dyslipidemia, diabetes mellitus, bilateral lower extremity ulcer, UTI. Coming to the hospital for increased confusion, possibly UTI. Wearing 2 L oxygen. White count is 4.45, creatinine 0.56. Urine grew Pseudomonas. OBJECTIVE: VITAL SIGNS: Temperature 97.5, pulse 84, respiratory rate 16 to 18, and blood pressure 118/68. ASSESSMENT: Leukocytosis, UTI, altered mental status, sensitive to cefepime with the UA change of Sheehan catheter. Prognosis guarded, PT OT. Continue current treatments. Possible long- term IV antibiotics. Discharge planning. MMODL / IJN: [id number] /
[2023-12-01] MEDS: SODIUM CHLORIDE 0.9% 1,000 ML IV SCH (04:30)
[2023-12-01] MEDS: LEVOTHYROXINE 75 MCG TAB PO SCH (06:06)
[2023-12-01 07:26] LABS: Glucose,Whole Blood 165 mg/dL (70-110)
[2023-12-01] MEDS: IPRATROPIUM-ALBUTEROL 3 ML NEB INHALATION SCH ×4 (07:39→18:25)
--- NOTE | 2023-12-01 07:40 | PN ---
PROGRESS NOTE This is a 78-year-old. DICTATION ENDS HERE. MMODL / IJN: [id number] /
[2023-12-01] MEDS: INSULIN ASPART (NovoLOG) 100 UNIT/ML VIAL SQ SCH ×4 (09:21→21:01)
[2023-12-01] MEDS: LACTOBACILLUS ACIDOPHILUS/PECT 1 EACH CAPSULE PO SCH ×2 (09:22→21:01)
[2023-12-01] MEDS: PANTOPRAZOLE 40 MG TABLET PO SCH (09:22)
[2023-12-01] MEDS: CEFEPIME 2 GM in SODIUM CHLORIDE 0.9% 100 ML IVPB SCH ×2 (09:22→21:02)
[2023-12-01] MEDS: METOPROLOL SUCCINATE (ER) 25 MG TAB.ER.24H PO SCH (09:23)
[2023-12-01] MEDS: MAGNESIUM OXIDE 400 MG TAB PO SCH (09:23)
[2023-12-01] MEDS: CHOLECALCIFEROL 25 MCG (1000 IU) TABLET PO SCH (09:23)
[2023-12-01] MEDS: DILTIAZEM ORAL 30 MG TAB PO SCH ×2 (09:24→21:01)
[2023-12-01] MEDS: MIDODRINE 5 MG TAB PO SCH ×2 (09:24→18:20)
[2023-12-01] MEDS: LIDOCAINE 4% PATCH TOPICAL SCH (09:24)
[2023-12-01] MEDS: ESCITALOPRAM 10 MG TAB PO SCH (09:24)
[2023-12-01] MEDS: POTASSIUM CHLORIDE ER 10 MEQ TAB.ER.PRT PO SCH (09:28)
[2023-12-01] MEDS: predniSONE 20 MG TAB PO SCH (09:28)
[2023-12-01] MEDS: MULTIVITAMINS, THERA 1 EACH TAB PO SCH (09:28)
[2023-12-01] MEDS: NYSTATIN 100,000 UNIT/GM POWD 15 GM TOPICAL SCH ×2 (09:28→21:02)
[2023-12-01] MEDS: INSULIN DETEMIR (LEVEMIR) 100 UNIT/ML SYR SQ SCH (09:29)
[2023-12-01 11:15] LABS: ALT 45 U/L (8-44); AST 43 U/L (13-35); Albumin 3.3 g/dL (3.8-4.9); Alkaline Phosphatase 79 U/L (41-126); BUN/Creat Ratio 31.29 Ratio (12.00-20.00); Blood Urea Nitrogen 21.9 mg/dL (9.0-27.0); Chloride 106 mmol/L (96-109); Globulin 2.2 g/dL (1.6-3.3); Glucose 184 mg/dL (70-110); Sodium 144 mmol/L (135-145); Total Bilirubin 0.2 mg/dL (0.3-1.2); Total Protein 5.5 g/dL (6.2-8.2)
[2023-12-01 11:27] LABS: Basophils # (A) 0.01 X 10*3/uL (0.00-0.10); Basophils % (A) 0.2 %; Eosinophils # (A) 0 X 10*3/uL (0.04-0.35); Eosinophils % (A) 0 %; HCT 35.8 % (37.2-46.3); HGB 10.9 g/dL (12.0-15.0); Lymphocytes # (A) 1.06 X 10*3/uL (0.90-5.00); MCH 27.9 pg (27.0-32.0); MCHC 30.4 g/dL (32.0-37.0); MCV 91.6 FL (80.0-97.0); Mean Platelet Volume 12.6 FL (9.5-12.2); Monocytes # (A) 0.58 X 10*3/uL (0.20-1.00); Monocytes % (A) 12.6 %; NRBC Per 100 WBC 0 X 10*3/uL (0.00-0.01); Neutrophils # (A) 2.95 X 10*3/uL (1.80-7.70); Platelet Count 129 X 10*3/uL (140-440); RBC 3.91 X 10*6/uL (4.10-5.20); RDW 15.1 % (11.5-14.5); WBC 4.61 X 10*3/uL (4.50-10.00)
[2023-12-01 12:07] LABS: Glucose,Whole Blood 194 mg/dL (70-110)
--- NOTE | 2023-12-01 12:48 | CDI ---
Documentation Clarification Form Date: 12/01/2023 12:26:20 PM From: Bonita Samuel RN CCDS Phone: [phone] Admit Date: 11/23/2023 10:39:00 PM Patient Name: Miriam Cradoso Visit Number: [id number] Discharge Date: ATTENTION: The Clinical Documentation Specialists (CDI) and [facility] Coding Staff appreciate your assistance in clarifying documentation. Please respond to the clarification below the line at the bottom and electronically sign. The CDI & [facility] Coding staff will review the response and follow-up if needed. Please note: Queries are made part of the Legal Health Record. If you have any questions, please contact the author of this message via ITS. Dr. Eloy Griffin UTI is documented 11/30, Medicine note and patient has Sheehan catheter upon arrival, documented in ED note, 11/23. Additional clarification regarding the etiology of the UTI is requested. History/Risk Factors: 78-year-old female presents to the ED with confusion from [facility]. Medical History: CVA/TIA, Cancer, DM2, Fibromyalgia and Renal Disease. 11/23 H&P. Clinical Indicators: Vital Signs, 11/23: B/P 154/89; HR 110; Temp 97.4F Oral; RR 20; SpO2 98% RA WBC, 11/23: 18.8 Urinalysis: 11/23 Light yellow color; cloudy; protein 2+; Ketones 2+; Blood small; Nitrate positive; Leukocyte Esterase Large, RBC 30; WBC 74; Bacteria Many; Hyaline Casts 37; Mucus Many; Yeast Budding Many. Urine Culture: 11/26 Pseudomonas aeruginosa Treatment Antibiotics: 11/23 Ceftriaxone 2gm IVPB x1; 11/23 Azithromycin 500mg IVPB x 1; 11/25 Zithromax 500mg PO Daily x 2 doses; 11/25 Ceftriaxone 2gm IVPB x1; 11/25 11/30 Cefepime HCI 2gm IVPB Q8HR; 11/30 Cefepime HCI 2gm IVPB Q12HR Please clarify the etiology of the UTI, if known: [ ] Sheehan catheter [ ] Other condition, please specify [ ] Unable to determine (Template Last Revised: January 2021) MTDD
--- NOTE | 2023-12-01 13:00 | CDI ---
Documentation Clarification Form Date: 12/01/2023 12:50:35 PM From: Bonita Samuel RN CCDS Phone: [phone] Admit Date: 11/23/2023 10:39:00 PM Patient Name: Miriam Cardoso Visit Number: [id number] Discharge Date: ATTENTION: The Clinical Documentation Specialists (CDI) and [facility] Coding Staff appreciate your assistance in clarifying documentation. Please respond to the clarification below the line at the bottom and electronically sign. The CDI & [facility] Coding staff will review the response and follow-up if needed. Please note: Queries are made part of the Legal Health Record. If you have any questions, please contact the author of this message via ITS. Dr. Eloy Griffin A Right Heel pressure ulcer present on admission is documented 11/24 -11/30, Nursing pressure injury assessment. Additional clarification regarding the stage of the pressure ulcer is requested. History/Risk Factors: 78-year-old female presents to the ED with confusion from [facility]. Medical History: CVA/TIA, Cancer, DM2, Fibromyalgia and Renal Disease. 11/23 H&P. Clinical Indicators: Location: Right Heel / Ankle Wound description: none Treatment: Floating heels, Foam with border; Ankle with moist optical silver and optifoam, Absorbent pad. Please clarify the stage of pressure ulcer Right Heel, if known: [ ] Deep tissue injury Right Heel [ ] Stage 1 Pressure Ulcer Right Heel [ ] Stage 2 Pressure Ulcer Right Heel [ ] Stage 3 Pressure Ulcer Right Heel [ ] Stage 4 Pressure Ulcer Right Heel [ ] Unstageable Pressure ulcer Right Heel [ ] Other condition, please specify [ ] Unable to determine Clinical Definitions: Stage 1 Pressure Ulcer: intact skin, non-blanching redness of local area Stage 2 Pressure Ulcer: Partial thickness, loss of dermis, pink wound bed Stage 3 Pressure Ulcer: Full thickness tissue loss Stage 4 Pressure Ulcer: Full thickness tissue loss with exposed bone, tendon, or muscle. Unstageable pressure ulcer: Full thickness tissue loss in which the base of the ulcer is covered by slough (yellow, ramachandran, carey, green or brown) and/or eschar (ramachandran, brown or black) in the wound bed. (Template Last Revised: January 2021) MTDD
--- NOTE | 2023-12-01 14:33 | P.PN ---
Subjective Progress Note Date: 11/30/23 Principal diagnosis: reason for follow-up is gram-negative UTI Patient is a 78-year-old female with a past medical history significant for CVA TIA diabetes mellitus hyperlipidemia history of bilateral lower extremity ulcer UTI, patient was brought into the hospital for evaluation of confusion, patient was noticed to have elevated white count and positive UA concerning for UTI. On today's evaluation that is 11/30/2023, the patient continues to be afebrile patient is breathing comfortably on 2 L nasal cannula supplemental oxygen the patient denies chest pain did have occasional cough but no sputum production patient denies abdominal pain no nausea no vomiting and no diarrhea has been reported Patient white count of 4.67 creatinine 0.7, urine grew Pseudomonas Objective - Vital Signs Vital signs: Vital Signs Temp 98.1 F 11/30/23 08:03 Pulse 80 11/30/23 11:25 Resp 16 11/30/23 08:03 BP 138/67 11/30/23 08:03 Pulse Ox 100 11/30/23 08:03 FiO2 Intake & Output 11/29/23 11/30/23 11/30/23 18:59 06:59 18:59 Output Total 300 500 300 Balance -300 -500 -300 Output: Urine 300 500 300 Other: Voiding Method Indwelling Catheter Indwelling Catheter Indwelling Catheter - Exam GENERAL DESCRIPTION: An elderly female lying in bed in no distress RESPIRATORY SYSTEM: Unlabored breathing , decreased breath sounds at bases HEART: S1 S2 regular rate and rhythm , ABDOMEN: Soft , no tenderness EXTREMITIES: No edema feet - Labs CBC & Chem 7: 12/01/23 05:59 12/01/23 05:59 Labs: Abnormal Lab Results - Last 24 Hours (Table) 11/29/23 11/29/23 11/30/23 Range/Units 16:42 20:09 06:29 RBC 3.68 L (4.10-5.20) X 10*6/uL Hgb 10.5 L (12.0-15.0) g/dL Hct 34.5 L (37.2-46.3) % MCHC 30.4 L (32.0-37.0) g/dL RDW 15.1 H (11.5-14.5) % Plt Count 121 L (140-440) X 10*3/uL MPV 12.3 H (9.5-12.2) FL Eosinophils # 0.02 L (0.04-0.35) X 10*3/uL BUN/Creatinine Ratio (12.00-20.00) Ratio Glucose (70-110) mg/dL POC Glucose (mg/dL) 248 H 330 H (70-110) mg/dL 11/30/23 11/30/23 11/30/23 Range/Units 06:29 08:08 11:48 RBC (4.10-5.20) X 10*6/uL Hgb (12.0-15.0) g/dL Hct (37.2-46.3) % MCHC (32.0-37.0) g/dL RDW (11.5-14.5) % Plt Count (140-440) X 10*3/uL MPV (9.5-12.2) FL Eosinophils # (0.04-0.35) X 10*3/uL BUN/Creatinine Ratio 29.71 H (12.00-20.00) Ratio Glucose 133 H (70-110) mg/dL POC Glucose (mg/dL) 117 H 168 H (70-110) mg/dL Microbiology - Last 24 Hours (Table) 11/28/23 13:45 Urine Culture - Final Urine,Voided Assessment and Plan (1) Leukocytosis Current Visit: Yes Status: Acute Code(s): D72.829 - ELEVATED WHITE BLOOD CELL COUNT, UNSPECIFIED SNOMED Code(s): 879613696 (2) UTI (urinary tract infection) Current Visit: Yes Status: Acute Code(s): N39.0 - URINARY TRACT INFECTION, SITE NOT SPECIFIED SNOMED Code(s): 22931128 Plan: 1patient presented to hospital with confusion and weakness did have elevated white count, positive UA and urinary symptoms concerning for a symptomatic UTI likely from enteric gram-negative pathogen 2-patient urine culture has been finalized with Pseudomonas that is sensitive to cefepime to continue, repeat UA after change of Sheehan catheter is positive and cultures are currently pending will monitor the patient closely Dictation was produced using [employer] dictation software. please excuse any grammatical, word or spelling errors. Time with Patient: Less than 30
--- NOTE | 2023-12-01 14:35 | P.PN ---
Subjective Progress Note Date: 12/01/23 Principal diagnosis: reason for follow-up is gram-negative UTI Patient is a 78-year-old female with a past medical history significant for CVA TIA diabetes mellitus hyperlipidemia history of bilateral lower extremity ulcer UTI, patient was brought into the hospital for evaluation of confusion, patient was noticed to have elevated white count and positive UA concerning for UTI. On today's evaluation that is 12/01/2023, the patient remains to be afebrile, the patient is breathing comfortably on 2 L nasal cannula oxygen, the patient denies any shortness of breath, the patient denies chest pain, did have occasional dry cough , patient denies any nausea/vomiting abdominal pain or diarrhea Patient white count of 4.61, creatinine 0.7, repeat urine is growing yeast Objective - Vital Signs Vital signs: Vital Signs Temp 98.0 F 12/01/23 13:42 Pulse 78 12/01/23 13:42 Resp 20 12/01/23 13:42 BP 117/58 12/01/23 13:42 Pulse Ox 98 12/01/23 13:42 FiO2 Intake & Output 11/30/23 12/01/23 12/01/23 18:59 06:59 18:59 Output Total 375 1100 350 Balance -375 -1100 -350 Weight 99.79 kg Output: Urine 375 1100 350 Other: Voiding Method Indwelling Catheter Indwelling Catheter Indwelling Catheter - Exam GENERAL DESCRIPTION: An elderly female lying in bed in no distress RESPIRATORY SYSTEM: Unlabored breathing , decreased breath sounds at bases HEART: S1 S2 regular rate and rhythm , ABDOMEN: Soft , no tenderness EXTREMITIES: No edema feet - Labs CBC & Chem 7: 12/01/23 05:59 12/01/23 05:59 Labs: Abnormal Lab Results - Last 24 Hours (Table) 11/30/23 11/30/23 12/01/23 Range/Units 16:39 20:02 05:59 RBC 3.91 L (4.10-5.20) X 10*6/uL Hgb 10.9 L (12.0-15.0) g/dL Hct 35.8 L (37.2-46.3) % MCHC 30.4 L (32.0-37.0) g/dL RDW 15.1 H (11.5-14.5) % Plt Count 129 L (140-440) X 10*3/uL MPV 12.6 H (9.5-12.2) FL Eosinophils # 0 L (0.04-0.35) X 10*3/uL BUN/Creatinine Ratio (12.00-20.00) Ratio Glucose (70-110) mg/dL POC Glucose (mg/dL) 242 H 373 H (70-110) mg/dL Total Bilirubin (0.3-1.2) mg/dL AST (13-35) U/L ALT (8-44) U/L Total Protein (6.2-8.2) g/dL Albumin (3.8-4.9) g/dL Albumin/Globulin Ratio (1.60-3.17) Ratio 12/01/23 12/01/23 12/01/23 Range/Units 05:59 07:24 12:06 RBC (4.10-5.20) X 10*6/uL Hgb (12.0-15.0) g/dL Hct (37.2-46.3) % MCHC (32.0-37.0) g/dL RDW (11.5-14.5) % Plt Count (140-440) X 10*3/uL MPV (9.5-12.2) FL Eosinophils # (0.04-0.35) X 10*3/uL BUN/Creatinine Ratio 31.29 H (12.00-20.00) Ratio Glucose 184 H (70-110) mg/dL POC Glucose (mg/dL) 165 H 194 H (70-110) mg/dL Total Bilirubin 0.2 L (0.3-1.2) mg/dL AST 43 H (13-35) U/L ALT 45 H (8-44) U/L Total Protein 5.5 L (6.2-8.2) g/dL Albumin 3.3 L (3.8-4.9) g/dL Albumin/Globulin Ratio 1.50 L (1.60-3.17) Ratio Microbiology - Last 24 Hours (Table) 11/28/23 13:45 Urine Culture - Final Urine,Voided Yeast species Assessment and Plan (1) Leukocytosis Current Visit: Yes Status: Acute Code(s): D72.829 - ELEVATED WHITE BLOOD CELL COUNT, UNSPECIFIED SNOMED Code(s): 397342683 (2) UTI (urinary tract infection) Current Visit: Yes Status: Acute Code(s): N39.0 - URINARY TRACT INFECTION, SITE NOT SPECIFIED SNOMED Code(s): 68272395 Plan: 1patient presented to hospital with confusion and weakness did have elevated white count, positive UA and urinary symptoms concerning for a symptomatic UTI likely from enteric gram-negative pathogen 2-patient urine culture has been finalized with Pseudomonas that is sensitive to cefepime to continue 3- repeat UA after change of Sheehan catheter is positive and cultures are currently growing yeast we will add Diflucan Dictation was produced using [employer] software. please excuse any grammatical, word or spelling errors. Time with Patient: Less than 30
[2023-12-01] MEDS: FUROSEMIDE 20 MG TAB PO SCH ×2 (16:28→18:17)
[2023-12-01] MEDS: FLUCONAZOLE 100 MG TAB PO SCH (16:31)
[2023-12-01 17:29] LABS: Glucose,Whole Blood 376 mg/dL (70-110)
[2023-12-01 20:20] LABS: Glucose,Whole Blood 442 mg/dL (70-110)
[2023-12-01] MEDS: ATORVASTATIN 10 MG TAB PO SCH (21:01)
[2023-12-01] MEDS: ALPRAZolam 0.5 MG TAB PO PRN (21:01)
[2023-12-01] MEDS: oxyCODONE-APAP 10-325MG 1 EACH TAB PO PRN (21:01)
[2023-12-02] MEDS: ACETAMINOPHEN TAB 325 MG TAB PO PRN (01:11)
[2023-12-02] MEDS: SODIUM CHLORIDE 0.9% 1,000 ML IV SCH ×2 (02:12→21:53)
[2023-12-02] MEDS: LEVOTHYROXINE 75 MCG TAB PO SCH (05:57)
[2023-12-02] MEDS: IPRATROPIUM-ALBUTEROL 3 ML NEB INHALATION SCH ×4 (07:39→18:26)
[2023-12-02 07:40] LABS: Glucose,Whole Blood 112 mg/dL (70-110)
[2023-12-02] MEDS: INSULIN ASPART (NovoLOG) 100 UNIT/ML VIAL SQ SCH ×4 (08:15→20:42)
[2023-12-02] MEDS: LACTOBACILLUS ACIDOPHILUS/PECT 1 EACH CAPSULE PO SCH ×2 (10:42→20:42)
[2023-12-02] MEDS: CHOLECALCIFEROL 25 MCG (1000 IU) TABLET PO SCH (10:43)
[2023-12-02] MEDS: MAGNESIUM OXIDE 400 MG TAB PO SCH (10:43)
[2023-12-02] MEDS: METOPROLOL SUCCINATE (ER) 25 MG TAB.ER.24H PO SCH (10:43)
[2023-12-02] MEDS: predniSONE 20 MG TAB PO SCH (10:43)
[2023-12-02] MEDS: POTASSIUM CHLORIDE ER 10 MEQ TAB.ER.PRT PO SCH (10:43)
[2023-12-02] MEDS: PANTOPRAZOLE 40 MG TABLET PO SCH (10:43)
[2023-12-02] MEDS: MULTIVITAMINS, THERA 1 EACH TAB PO SCH (10:43)
[2023-12-02] MEDS: MIDODRINE 5 MG TAB PO SCH ×2 (10:44→17:51)
[2023-12-02] MEDS: DILTIAZEM ORAL 30 MG TAB PO SCH ×2 (10:44→20:42)
[2023-12-02] MEDS: FLUCONAZOLE 100 MG TAB PO SCH (10:45)
[2023-12-02] MEDS: CEFEPIME 2 GM in SODIUM CHLORIDE 0.9% 100 ML IVPB SCH (10:45)
[2023-12-02] MEDS: ESCITALOPRAM 10 MG TAB PO SCH (10:45)
[2023-12-02] MEDS: LIDOCAINE 4% PATCH TOPICAL SCH (10:47)
[2023-12-02] MEDS: INSULIN DETEMIR (LEVEMIR) 100 UNIT/ML SYR SQ SCH (10:47)
[2023-12-02] MEDS: oxyCODONE-APAP 10-325MG 1 EACH TAB PO PRN (10:52)
[2023-12-02] MEDS: NYSTATIN 100,000 UNIT/GM POWD 15 GM TOPICAL SCH ×2 (10:55→20:43)
[2023-12-02 12:20] LABS: Glucose,Whole Blood 162 mg/dL (70-110)
--- NOTE | 2023-12-02 12:40 | CDI ---
Documentation Clarification Form Date: 12/01/2023 12:26:00 PM From: Bonita Samuel RN CCDS Phone: [phone] Admit Date: 11/23/2023 10:39:00 PM Patient Name: Miriam Cardoso Visit Number: [id number] Discharge Date: ATTENTION: The Clinical Documentation Specialists (CDI) and [facility] Coding Staff appreciate your assistance in clarifying documentation. Please respond to the clarification below the line at the bottom and electronically sign. The CDI & [facility] Coding staff will review the response and follow-up if needed. Please note: Queries are made part of the Legal Health Record. If you have any questions, please contact the author of this message via ITS. Dr. Eloy Griffin UTI is documented 11/30, Medicine note and patient has Sheehan catheter upon arrival, documented in ED note, 11/23. Additional clarification regarding the etiology of the UTI is requested. History/Risk Factors: 78-year-old female presents to the ED with confusion from [facility]. Medical History: CVA/TIA, Cancer, DM2, Fibromyalgia and Renal Disease. 11/23 H&P. Clinical Indicators: Vital Signs, 11/23: B/P 154/89; HR 110; Temp 97.4F Oral; RR 20; SpO2 98% RA WBC, 11/23: 18.8 Urinalysis: 11/23 Light yellow color; cloudy; protein 2+; Ketones 2+; Blood small; Nitrate positive; Leukocyte Esterase Large, RBC 30; WBC 74; Bacteria Many; Hyaline Casts 37; Mucus Many; Yeast Budding Many. Urine Culture: 11/26 Pseudomonas aeruginosa Treatment Antibiotics: 11/23 Ceftriaxone 2gm IVPB x1; 11/23 Azithromycin 500mg IVPB x 1; 11/25 Zithromax 500mg PO Daily x 2 doses; 11/25 Ceftriaxone 2gm IVPB x1; 11/25 11/30 Cefepime HCI 2gm IVPB Q8HR; 11/30 Cefepime HCI 2gm IVPB Q12HR Please clarify the etiology of the UTI, if known: [ ] UTI due to Sheehan catheter [ ] UTI not due to Sheehan catheter [ ] Other condition, please specify [ ] Unable to determine (Template Last Revised: January 2021) MTDD
--- NOTE | 2023-12-02 12:41 | CDI ---
Documentation Clarification Form Date: 12/01/2023 12:50:00 PM From: Bonita Samuel RN CCDS Phone: [phone] Admit Date: 11/23/2023 10:39:00 PM Patient Name: Miriam Cardoso Visit Number: [id number] Discharge Date: ATTENTION: The Clinical Documentation Specialists (CDI) and [facility] Coding Staff appreciate your assistance in clarifying documentation. Please respond to the clarification below the line at the bottom and electronically sign. The CDI & [facility] Coding staff will review the response and follow-up if needed. Please note: Queries are made part of the Legal Health Record. If you have any questions, please contact the author of this message via ITS. Dr. Eloy Griffin A Right Heel pressure ulcer present on admission is documented 11/24 -11/30, Nursing pressure injury assessment. Additional clarification regarding the stage of the pressure ulcer is requested. History/Risk Factors: 78-year-old female presents to the ED with confusion from [facility]. Medical History: CVA/TIA, Cancer, DM2, Fibromyalgia and Renal Disease. 11/23 H&P. Clinical Indicators: Location: Right Heel / Ankle Wound description: none Treatment: Floating heels, Foam with border; Ankle with moist optical silver and optifoam, Absorbent pad. Please clarify the stage of pressure ulcer Right Heel, if known: [ ] Deep tissue injury Right Heel [ ] Stage 1 Pressure Ulcer Right Heel [ ] Stage 2 Pressure Ulcer Right Heel [ ] Stage 3 Pressure Ulcer Right Heel [ ] Stage 4 Pressure Ulcer Right Heel [ ] Unstageable Pressure ulcer Right Heel [ ] Other condition, please specify [ ] Unable to determine Clinical Definitions: Stage 1 Pressure Ulcer: intact skin, non-blanching redness of local area Stage 2 Pressure Ulcer: Partial thickness, loss of dermis, pink wound bed Stage 3 Pressure Ulcer: Full thickness tissue loss Stage 4 Pressure Ulcer: Full thickness tissue loss with exposed bone, tendon, or muscle. Unstageable pressure ulcer: Full thickness tissue loss in which the base of the ulcer is covered by slough (yellow, ramachandran, carey, green or brown) and/or eschar (ramachandran, brown or black) in the wound bed. (Template Last Revised: January 2021) MTDD
[2023-12-02] MEDS: FUROSEMIDE 20 MG TAB PO SCH ×2 (15:56→17:52)
[2023-12-02 17:26] LABS: Glucose,Whole Blood 251 mg/dL (70-110)
--- NOTE | 2023-12-02 17:31 | P.PN ---
Subjective Progress Note Date: 12/02/23 Principal diagnosis: reason for follow-up is gram-negative UTI Patient is a 78-year-old female with a past medical history significant for CVA TIA diabetes mellitus hyperlipidemia history of bilateral lower extremity ulcer UTI, patient was brought into the hospital for evaluation of confusion, patient was noticed to have elevated white count and positive UA concerning for UTI. On today's evaluation that is 12/02/2023, the patient continues to be afebrile patient is breathing comfortably on room air, no need for supplemental oxygen, patient denies any chest pain or cough no nausea no vomiting and no diarrhea has been reported, feeling better today Patient white count of 4.61, creatinine 0.7 as of yesterday no lab draw today, repeat urine is growing yeast Objective - Vital Signs Vital signs: Vital Signs Temp 97.4 F L 12/02/23 07:37 Pulse 76 12/02/23 11:56 Resp 16 12/02/23 07:37 BP 129/80 12/02/23 07:37 Pulse Ox 91 L 12/02/23 07:37 FiO2 Intake & Output 12/01/23 12/02/23 12/02/23 18:59 06:59 18:59 Output Total 650 1000 Balance -650 -1000 Output: Urine 650 1000 Other: Voiding Method Indwelling Catheter Indwelling Catheter Indwelling Catheter # Voids 1 # Bowel Movements 1 - Exam GENERAL DESCRIPTION: An elderly female lying in bed in no distress RESPIRATORY SYSTEM: Unlabored breathing , decreased breath sounds at bases HEART: S1 S2 regular rate and rhythm , ABDOMEN: Soft , no tenderness EXTREMITIES: No edema feet - Labs CBC & Chem 7: 12/01/23 05:59 12/01/23 05:59 Labs: Abnormal Lab Results - Last 24 Hours (Table) 12/01/23 12/01/23 12/02/23 Range/Units 17:27 20:18 07:39 POC Glucose (mg/dL) 376 H 442 H 112 H (70-110) mg/dL 12/02/23 Range/Units 12:19 POC Glucose (mg/dL) 162 H (70-110) mg/dL Microbiology - Last 24 Hours (Table) 11/28/23 13:45 Urine Culture - Final Urine,Voided Yeast species Assessment and Plan (1) Leukocytosis Current Visit: Yes Status: Acute Code(s): D72.829 - ELEVATED WHITE BLOOD CELL COUNT, UNSPECIFIED SNOMED Code(s): 613707448 (2) UTI (urinary tract infection) Current Visit: Yes Status: Acute Code(s): N39.0 - URINARY TRACT INFECTION, SITE NOT SPECIFIED SNOMED Code(s): 92886647 Plan: 1patient presented to hospital with confusion and weakness did have elevated white count, positive UA and urinary symptoms concerning for a symptomatic UTI likely from enteric gram-negative pathogen 2-patient urine culture has been finalized with Pseudomonas that is sensitive to cefepime, patient has received adequate treatment for Pseudomonas. Will discontinue cefepime 3- repeat UA after change of Sheehan catheter is positive and cultures are currently growing yeast considered a 3-day course of Diflucan Dictation was produced using [employer] dictation software. please excuse any grammatical, word or spelling errors. Time with Patient: Less than 30
[2023-12-02 20:22] LABS: Glucose,Whole Blood 352 mg/dL (70-110)
[2023-12-02] MEDS: ATORVASTATIN 10 MG TAB PO SCH (20:42)
[2023-12-03] MEDS: oxyCODONE-APAP 10-325MG 1 EACH TAB PO PRN ×2 (05:19→20:20)
[2023-12-03] MEDS: LEVOTHYROXINE 75 MCG TAB PO SCH (05:19)
[2023-12-03 07:28] LABS: Glucose,Whole Blood 230 mg/dL (70-110)
[2023-12-03] MEDS: IPRATROPIUM-ALBUTEROL 3 ML NEB INHALATION SCH ×4 (08:13→18:19)
[2023-12-03] MEDS: INSULIN DETEMIR (LEVEMIR) 100 UNIT/ML SYR SQ SCH (09:07)
[2023-12-03] MEDS: INSULIN ASPART (NovoLOG) 100 UNIT/ML VIAL SQ SCH ×4 (09:07→20:14)
[2023-12-03] MEDS: CHOLECALCIFEROL 25 MCG (1000 IU) TABLET PO SCH (09:08)
[2023-12-03] MEDS: POTASSIUM CHLORIDE ER 10 MEQ TAB.ER.PRT PO SCH (09:08)
[2023-12-03] MEDS: MULTIVITAMINS, THERA 1 EACH TAB PO SCH (09:08)
[2023-12-03] MEDS: PANTOPRAZOLE 40 MG TABLET PO SCH (09:08)
[2023-12-03] MEDS: NYSTATIN 100,000 UNIT/GM POWD 15 GM TOPICAL SCH ×2 (09:08→20:14)
[2023-12-03] MEDS: LACTOBACILLUS ACIDOPHILUS/PECT 1 EACH CAPSULE PO SCH ×2 (09:08→20:13)
[2023-12-03] MEDS: METOPROLOL SUCCINATE (ER) 25 MG TAB.ER.24H PO SCH (09:08)
[2023-12-03] MEDS: predniSONE 20 MG TAB PO SCH (09:08)
[2023-12-03] MEDS: MAGNESIUM OXIDE 400 MG TAB PO SCH (09:08)
[2023-12-03] MEDS: FLUCONAZOLE 100 MG TAB PO SCH (09:12)
[2023-12-03] MEDS: LIDOCAINE 4% PATCH TOPICAL SCH (09:12)
[2023-12-03] MEDS: MIDODRINE 5 MG TAB PO SCH ×2 (09:13→17:54)
[2023-12-03] MEDS: DILTIAZEM ORAL 30 MG TAB PO SCH ×2 (09:13→20:13)
[2023-12-03] MEDS: ESCITALOPRAM 10 MG TAB PO SCH (09:13)
[2023-12-03 11:52] LABS: Glucose,Whole Blood 292 mg/dL (70-110)
--- NOTE | 2023-12-03 15:56 | P.PN ---
Subjective Progress Note Date: 12/03/23 Principal diagnosis: reason for follow-up is gram-negative UTI Patient is a 78-year-old female with a past medical history significant for CVA TIA diabetes mellitus hyperlipidemia history of bilateral lower extremity ulcer UTI, patient was brought into the hospital for evaluation of confusion, patient was noticed to have elevated white count and positive UA concerning for UTI. On today's evaluation that is 12/03/2023 the patient denies having any fever or any chills, the patient is breathing comfortably on 2 L nasal cannula oxygen patient denies chest pain still complaining of cough no sputum, the patient denies having any abdominal pain no nausea vomiting and no diarrhea Patient white count of 4.61, creatinine 0.7 as of 12/01/2023 no lab draw today, repeat urine is growing yeast Objective - Vital Signs Vital signs: Vital Signs Temp 98.1 F 12/03/23 12:27 Pulse 65 12/03/23 12:27 Resp 16 12/03/23 12:27 BP 129/75 12/03/23 12:27 Pulse Ox 94 L 12/03/23 12:27 FiO2 Intake & Output 12/02/23 12/03/23 12/03/23 18:59 06:59 18:59 Intake Total 200 Output Total 200 500 Balance -200 -300 Intake: Oral 200 Output: Urine 200 500 Other: Voiding Method Indwelling Catheter Indwelling Catheter Indwelling Catheter # Voids 1 - Exam GENERAL DESCRIPTION: An elderly female lying in bed in no distress RESPIRATORY SYSTEM: Unlabored breathing , decreased breath sounds at bases HEART: S1 S2 regular rate and rhythm , ABDOMEN: Soft , no tenderness EXTREMITIES: No edema feet - Labs CBC & Chem 7: 12/01/23 05:59 12/01/23 05:59 Labs: Abnormal Lab Results - Last 24 Hours (Table) 12/02/23 12/02/23 12/03/23 Range/Units 17:24 20:20 07:26 POC Glucose (mg/dL) 251 H 352 H 230 H (70-110) mg/dL 12/03/23 Range/Units 11:51 POC Glucose (mg/dL) 292 H (70-110) mg/dL Microbiology - Last 24 Hours (Table) 11/28/23 13:45 Urine Culture - Final Urine,Voided Regina glabrata Assessment and Plan (1) Leukocytosis Current Visit: Yes Status: Acute Code(s): D72.829 - ELEVATED WHITE BLOOD CELL COUNT, UNSPECIFIED SNOMED Code(s): 825447834 (2) UTI (urinary tract infection) Current Visit: Yes Status: Acute Code(s): N39.0 - URINARY TRACT INFECTION, SITE NOT SPECIFIED SNOMED Code(s): 82762385 Plan: 1patient presented to hospital with confusion and weakness did have elevated wh ite count, positive UA and urinary symptoms concerning for a symptomatic UTI likely from enteric gram-negative pathogen 2-patient urine culture has been finalized with Pseudomonas that is sensitive to cefepime, patient has received adequate treatment for Pseudomonas. Will discontinue cefepime 3- repeat UA after change of Sheehan catheter is positive and cultures are currently growing yeast we will consider short 3 to 5-day course of Diflucan total Dictation was produced using [employer] software. please excuse any grammatical, word or spelling errors. Time with Patient: Less than 30
[2023-12-03 17:29] LABS: Glucose,Whole Blood 432 mg/dL (70-110)
[2023-12-03] MEDS: FUROSEMIDE 20 MG TAB PO SCH ×2 (17:54→18:09)
[2023-12-03 20:09] LABS: Glucose,Whole Blood 401 mg/dL (70-110)
[2023-12-03] MEDS: ATORVASTATIN 10 MG TAB PO SCH (20:13)
[2023-12-03] MEDS: ACETAMINOPHEN TAB 325 MG TAB PO PRN (20:13)
[2023-12-03] MEDS: SODIUM CHLORIDE 0.9% 1,000 ML IV SCH (20:14)
[2023-12-03] MEDS: ALPRAZolam 0.5 MG TAB PO PRN (20:17)
[2023-12-04] MEDS: BENZONATATE 100 MG CAP PO PRN (01:52)
--- NOTE | 2023-12-04 02:17 | PN ---
PROGRESS NOTE SUBJECTIVE: Remains on Cardizem, DuoNeb, oxygen, Sinemet, vitamin D3. OBJECTIVE: CARDIOVASCULAR: S1, S2. LUNGS: Scattered wheeze, transmitted upper sounds HEMATOLOGY: Negative for Homans. 2 to 3+ edema. PSYCH: Fair mood and affect. VITAL SIGNS: O2 95 on 3 L, blood pressure 136/83, temperature 98.2, pulse is 80s to 90s. GI: Soft, nontender. PLAN: Continue current treatment. Possible discharge to the hospital tomorrow with home PT OT. pill, UTI is being followed up and discharged home with oral antibiotics . Diflucan 3-5 days of course of that. Prognosis guarded. MMODL / IJN: [id number] /
[2023-12-04] MEDS: LEVOTHYROXINE 75 MCG TAB PO SCH (05:22)
[2023-12-04 07:28] LABS: Glucose,Whole Blood 190 mg/dL (70-110)
[2023-12-04] MEDS: IPRATROPIUM-ALBUTEROL 3 ML NEB INHALATION SCH ×4 (07:57→19:41)
[2023-12-04] MEDS: INSULIN DETEMIR (LEVEMIR) 100 UNIT/ML SYR SQ SCH (08:41)
[2023-12-04] MEDS: INSULIN ASPART (NovoLOG) 100 UNIT/ML VIAL SQ SCH ×7 (08:42→21:37)
[2023-12-04] MEDS: LACTOBACILLUS ACIDOPHILUS/PECT 1 EACH CAPSULE PO SCH ×2 (08:43→20:20)
[2023-12-04] MEDS: CHOLECALCIFEROL 25 MCG (1000 IU) TABLET PO SCH (08:43)
[2023-12-04] MEDS: METOPROLOL SUCCINATE (ER) 25 MG TAB.ER.24H PO SCH (08:44)
[2023-12-04] MEDS: predniSONE 20 MG TAB PO SCH (08:44)
[2023-12-04] MEDS: MULTIVITAMINS, THERA 1 EACH TAB PO SCH (08:44)
[2023-12-04] MEDS: PANTOPRAZOLE 40 MG TABLET PO SCH (08:44)
[2023-12-04] MEDS: LIDOCAINE 4% PATCH TOPICAL SCH (08:44)
[2023-12-04] MEDS: MAGNESIUM OXIDE 400 MG TAB PO SCH (08:44)
[2023-12-04] MEDS: POTASSIUM CHLORIDE ER 10 MEQ TAB.ER.PRT PO SCH (08:44)
[2023-12-04] MEDS: DILTIAZEM ORAL 30 MG TAB PO SCH ×2 (08:45→20:20)
[2023-12-04] MEDS: ESCITALOPRAM 10 MG TAB PO SCH (08:45)
[2023-12-04] MEDS: MIDODRINE 5 MG TAB PO SCH ×2 (08:46→18:38)
[2023-12-04] MEDS: FLUCONAZOLE 100 MG TAB PO SCH (08:47)
[2023-12-04] MEDS: NYSTATIN 100,000 UNIT/GM POWD 15 GM TOPICAL SCH ×2 (08:48→20:20)
[2023-12-04] MEDS: oxyCODONE-APAP 10-325MG 1 EACH TAB PO PRN ×2 (08:57→20:31)
[2023-12-04 12:21] LABS: Glucose,Whole Blood 329 mg/dL (70-110)
--- NOTE | 2023-12-04 13:19 | CDI ---
Documentation Clarification Form Date: 12/01/2023 12:26:00 PM From: Bonita Samuel Phone: [phone] Admit Date: 11/23/2023 10:39:00 PM Patient Name: Miriam Cardoso Visit Number: [id number] Discharge Date: ATTENTION: The Clinical Documentation Specialists (CDI) and [facility] Coding Staff appreciate your assistance in clarifying documentation. Please respond to the clarification below the line at the bottom and electronically sign. The CDI & [facility] Coding staff will review the response and follow-up if needed. Please note: Queries are made part of the Legal Health Record. If you have any questions, please contact the author of this message via ITS. Dr. Eloy Griffin UTI is documented 11/30, Medicine note and patient has Sheehan catheter upon arrival, documented in ED note, 11/23. Additional clarification regarding the etiology of the UTI is requested. History/Risk Factors: 78-year-old female presents to the ED with confusion from [facility]. Medical History: CVA/TIA, Cancer, DM2, Fibromyalgia and Renal Disease. 11/23 H&P. Clinical Indicators: Vital Signs, 11/23: B/P 154/89; HR 110; Temp 97.4F Oral; RR 20; SpO2 98% RA WBC, 11/23: 18.8 Urinalysis: 11/23 Light yellow color; cloudy; protein 2+; Ketones 2+; Blood small; Nitrate positive; Leukocyte Esterase Large, RBC 30; WBC 74; Bacteria Many; Hyaline Casts 37; Mucus Many; Yeast Budding Many. Urine Culture: 11/26 Pseudomonas aeruginosa Treatment Antibiotics: 11/23 Ceftriaxone 2gm IVPB x1; 11/23 Azithromycin 500mg IVPB x 1; 11/25 Zithromax 500mg PO Daily x 2 doses; 11/25 Ceftriaxone 2gm IVPB x1; 11/25 11/30 Cefepime HCI 2gm IVPB Q8HR; 11/30 Cefepime HCI 2gm IVPB Q12HR Please clarify the etiology of the UTI, if known: [ ] UTI due to Sheehan catheter [ ] UTI not due to Sheehan catheter [ ] Other condition, please specify [ ] Unable to determine (Template Last Revised: January 2021) MTDD
--- NOTE | 2023-12-04 13:23 | CDI ---
Documentation Clarification Form Date: 12/01/2023 12:50:00 PM From: Bonita Samuel RN CCDS Phone: [phone] Admit Date: 11/23/2023 10:39:00 PM Patient Name: Miriam Cardoso Visit Number: [id number] Discharge Date: ATTENTION: The Clinical Documentation Specialists (CDI) and [facility] Coding Staff appreciate your assistance in clarifying documentation. Please respond to the clarification below the line at the bottom and electronically sign. The CDI & [facility] Coding staff will review the response and follow-up if needed. Please note: Queries are made part of the Legal Health Record. If you have any questions, please contact the author of this message via ITS. Dr. Eloy Griffin A Right Heel pressure ulcer present on admission is documented 11/24 -11/30, Nursing pressure injury assessment. Additional clarification regarding the stage of the pressure ulcer is requested. History/Risk Factors: 78-year-old female presents to the ED with confusion from [facility]. Medical History: CVA/TIA, Cancer, DM2, Fibromyalgia and Renal Disease. 11/23 H&P. Clinical Indicators: Location: Right Heel / Ankle Wound description: none Treatment: Floating heels, Foam with border; Ankle with moist optical silver and optifoam, Absorbent pad. Please clarify the stage of pressure ulcer Right Heel, if known: [ ] Deep tissue injury Right Heel [ ] Stage 1 Pressure Ulcer Right Heel [ ] Stage 2 Pressure Ulcer Right Heel [ ] Stage 3 Pressure Ulcer Right Heel [ ] Stage 4 Pressure Ulcer Right Heel [ ] Unstageable Pressure ulcer Right Heel [ ] Other condition, please specify [ ] Unable to determine Clinical Definitions: Stage 1 Pressure Ulcer: intact skin, non-blanching redness of local area Stage 2 Pressure Ulcer: Partial thickness, loss of dermis, pink wound bed Stage 3 Pressure Ulcer: Full thickness tissue loss Stage 4 Pressure Ulcer: Full thickness tissue loss with exposed bone, tendon, or muscle. Unstageable pressure ulcer: Full thickness tissue loss in which the base of the ulcer is covered by slough (yellow, ramachandran, carey, green or brown) and/or eschar (ramachandran, brown or black) in the wound bed. (Template Last Revised: January 2021) JUANITA
--- NOTE | 2023-12-04 15:38 | P.PN ---
Subjective Progress Note Date: 12/04/23 Principal diagnosis: reason for follow-up is gram-negative UTI Patient is a 78-year-old female with a past medical history significant for CVA TIA diabetes mellitus hyperlipidemia history of bilateral lower extremity ulcer UTI, patient was brought into the hospital for evaluation of confusion, patient was noticed to have elevated white count and positive UA concerning for UTI. On today's evaluation that is 12/04/2023, the patient remains to be afebrile, the patient is breathing comfortably on 3 L nasal cannula oxygen , the patient denies any chest pain shortness of breath, did have occasional dry cough patient denies having any nausea no vomiting did not have any abdominal pain no diarrhea has been reported Patient white count of 4.61, creatinine 0.7 as of 12/01/2023 patient did not have no lab draw today, repeat urine is growing yeast Objective - Vital Signs Vital signs: Vital Signs Temp 97.4 F L 12/04/23 07:28 Pulse 77 12/04/23 08:07 Resp 16 12/04/23 07:28 BP 138/64 12/04/23 07:28 Pulse Ox 98 12/04/23 08:00 FiO2 Intake & Output 12/03/23 12/04/23 12/04/23 18:59 06:59 18:59 Intake Total 120 Output Total 200 600 Balance -200 -480 Intake: Oral 120 Output: Urine 200 600 Other: Voiding Method Indwelling Catheter Indwelling Catheter - Exam GENERAL DESCRIPTION: An elderly female lying in bed in no distress RESPIRATORY SYSTEM: Unlabored breathing , decreased breath sounds at bases HEART: S1 S2 regular rate and rhythm , ABDOMEN: Soft , no tenderness EXTREMITIES: No edema feet - Labs CBC & Chem 7: 12/01/23 05:59 12/01/23 05:59 Labs: Abnormal Lab Results - Last 24 Hours (Table) 12/03/23 12/03/23 12/03/23 Range/Units 11:51 17:28 20:07 POC Glucose (mg/dL) 292 H 432 H 401 H (70-110) mg/dL 12/04/23 Range/Units 07:26 POC Glucose (mg/dL) 190 H (70-110) mg/dL Assessment and Plan (1) Leukocytosis Current Visit: Yes Status: Acute Code(s): D72.829 - ELEVATED WHITE BLOOD CELL COUNT, UNSPECIFIED SNOMED Code(s): 123567286 (2) UTI (urinary tract infection) Current Visit: Yes Status: Acute Code(s): N39.0 - URINARY TRACT INFECTION, SITE NOT SPECIFIED SNOMED Code(s): 60312831 Plan: 1patient presented to hospital with confusion and weakness did have elevated white count, positive UA and urinary symptoms concerning for a symptomatic UTI likely from enteric gram-negative pathogen 2-patient urine culture has been finalized with Pseudomonas that is sensitive to cefepime, patient has received adequate treatment for Pseudomonas. Will discontinue cefepime 3- repeat UA after change of Sheehan catheter is positive and cultures are currently growing yeast 4-patient will be advised short 3 to 5-day course of Diflucan, Sheehan has already been changed Dictation was produced using [employer] dictation software. please excuse any grammatical, word or spelling errors. Time with Patient: Less than 30
[2023-12-04 17:29] LABS: Glucose,Whole Blood 322 mg/dL (70-110)
[2023-12-04] MEDS: FUROSEMIDE 20 MG TAB PO SCH (18:36)
[2023-12-04] MEDS: ATORVASTATIN 10 MG TAB PO SCH (20:20)
[2023-12-04] MEDS: ALPRAZolam 0.5 MG TAB PO PRN (20:31)
[2023-12-04 21:13] LABS: Glucose,Whole Blood 328 mg/dL (70-110)
[2023-12-04] MEDS: SODIUM CHLORIDE 0.9% 1,000 ML IV SCH (21:38)
--- NOTE | 2023-12-05 01:20 | PN ---
PROGRESS NOTE SUBJECTIVE: Miriam Cardoso, started discussing whether they want to take her home her help at the house. She does not [facility]. OBJECTIVE: VITAL SIGNS: Sat is 95 on 3 L, blood pressure 132/82, temp 98, pulse 78, and respiratory rate 16 to 18. CARDIOVASCULAR: S1, S2. LUNGS: Transmitted upper sounds. GI: Soft. HEMATOLOGY: Negative for Homans. PSYCH: Fair mood and affect. Sugars mid 100s acutely increased scale to 10+ scale for insulin. Continue other home medications. Prognosis is guarded. Continue current treatments. Follow up in next 24 to 48 hours. Diet recommendations will be recommended. Prognosis guarded. MMODL / IJN: [id number] /
[2023-12-05] MEDS: oxyCODONE-APAP 10-325MG 1 EACH TAB PO PRN ×2 (06:20→21:14)
[2023-12-05] MEDS: LEVOTHYROXINE 75 MCG TAB PO SCH (06:21)
[2023-12-05 07:33] LABS: Glucose,Whole Blood 203 mg/dL (70-110)
[2023-12-05] MEDS: IPRATROPIUM-ALBUTEROL 3 ML NEB INHALATION SCH ×4 (08:48→19:57)
[2023-12-05] MEDS: LACTOBACILLUS ACIDOPHILUS/PECT 1 EACH CAPSULE PO SCH ×2 (09:12→21:14)
[2023-12-05] MEDS: PANTOPRAZOLE 40 MG TABLET PO SCH (09:12)
[2023-12-05] MEDS: MIDODRINE 5 MG TAB PO SCH ×2 (09:12→17:36)
[2023-12-05] MEDS: INSULIN ASPART (NovoLOG) 100 UNIT/ML VIAL SQ SCH ×7 (09:53→21:14)
[2023-12-05] MEDS: CHOLECALCIFEROL 25 MCG (1000 IU) TABLET PO SCH (09:53)
[2023-12-05] MEDS: POTASSIUM CHLORIDE ER 10 MEQ TAB.ER.PRT PO SCH (09:54)
[2023-12-05] MEDS: FLUCONAZOLE 100 MG TAB PO SCH (09:54)
[2023-12-05] MEDS: METOPROLOL SUCCINATE (ER) 25 MG TAB.ER.24H PO SCH (09:54)
[2023-12-05] MEDS: ESCITALOPRAM 10 MG TAB PO SCH (09:54)
[2023-12-05] MEDS: predniSONE 20 MG TAB PO SCH (09:54)
[2023-12-05] MEDS: LIDOCAINE 4% PATCH TOPICAL SCH (09:54)
[2023-12-05] MEDS: DILTIAZEM ORAL 30 MG TAB PO SCH ×2 (09:54→21:14)
[2023-12-05] MEDS: MAGNESIUM OXIDE 400 MG TAB PO SCH (09:54)
[2023-12-05] MEDS: MULTIVITAMINS, THERA 1 EACH TAB PO SCH (09:55)
[2023-12-05] MEDS: INSULIN DETEMIR (LEVEMIR) 100 UNIT/ML SYR SQ SCH (11:06)
[2023-12-05] MEDS: NYSTATIN 100,000 UNIT/GM POWD 15 GM TOPICAL SCH ×2 (11:06→22:31)
[2023-12-05 12:08] LABS: Glucose,Whole Blood 296 mg/dL (70-110)
[2023-12-05 17:16] LABS: Glucose,Whole Blood 250 mg/dL (70-110)
[2023-12-05] MEDS: FUROSEMIDE 20 MG TAB PO SCH (17:29)
[2023-12-05 19:47] LABS: Glucose,Whole Blood 282 mg/dL (70-110)
[2023-12-05] MEDS: VORICONAZOLE 200 MG TAB PO SCH (21:14)
[2023-12-05] MEDS: ATORVASTATIN 10 MG TAB PO SCH (21:14)
[2023-12-05] MEDS: ALPRAZolam 0.5 MG TAB PO PRN (21:14)
--- NOTE | 2023-12-05 21:20 | P.PN ---
Progress Note - Text Progress Note Date: 12/05/23 Hospital course: I'm rounding for Dr. Eloy Griffin 12/05/2023: Admitted with acute UTI. Positive for Pseudomonas. Received IV cefepime. Completed course. Also growing [place]. Given Diflucan. Sheehan catheter was changed. Has decreased appetite. Tired. In bed. Bilateral foot wounds. Active Medications Acetaminophen (Acetaminophen Tab 325 Mg Tab) 650 mg PO Q6HR PRN PRN Reason: Mild Pain or Fever > 100.5 Last Admin: 12/03/23 20:13 Dose: 650 mg Albuterol/Ipratropium (Ipratropium-Albuterol 3 Ml Neb) 3 ml INHALATION RT-QID [facility] Last Admin: 12/05/23 19:57 Dose: 3 ml Alprazolam (Alprazolam 0.5 Mg Tab) 0.5 mg PO BID PRN PRN Reason: Anxiety Last Admin: 12/04/23 20:31 Dose: 0.5 mg Atorvastatin Calcium (Atorvastatin 10 Mg Tab) 10 mg PO HS [facility] Last Admin: 12/04/23 20:20 Dose: 10 mg Benzonatate (Benzonatate 100 Mg Cap) 100 mg PO TID PRN PRN Reason: Cough Last Admin: 12/04/23 01:52 Dose: 100 mg Carbidopa/Levodopa (Carbidopa-Levodopa 25-100 Mg 1 Each Tab) 1 each PO DAILY PRN PRN Reason: restless legs Cholecalciferol (Cholecalciferol 25 Mcg (1000 Iu) Tablet) 50 mcg PO DAILY [facility] Last Admin: 12/05/23 09:53 Dose: 50 mcg Dextrose/Water (Dextrose 50% Syringe 50 Ml) 25 ml IVP PER PROTOCOL PRN; Protocol PRN Reason: Hypoglycemia Dextrose/Water (Dextrose 50% Syringe 50 Ml) 50 ml IVP PER PROTOCOL PRN; Protocol PRN Reason: Hypoglycemia Diltiazem HCl (Diltiazem Oral 30 Mg Tab) 30 mg PO BID [facility] Last Admin: 12/05/23 09:54 Dose: 30 mg Escitalopram Oxalate (Escitalopram 10 Mg Tab) 10 mg PO DAILY [facility] Last Admin: 12/05/23 09:54 Dose: 10 mg Furosemide (Furosemide 20 Mg Tab) 20 mg PO AC-SUPPER [facility] Last Admin: 12/05/23 17:29 Dose: 20 mg Sodium Chloride (Saline 0.9%) 1,000 mls @ 20 mls/hr IV .Q24H [facility] Last Admin: 12/04/23 21:38 Dose: Not Given Insulin Aspart (Insulin Aspart (Novolog) 100 Unit/Ml Vial) 0 unit SQ ACHS [facility]; Protocol Last Admin: 12/05/23 17:35 Dose: 6 unit Insulin Aspart (Insulin Aspart (Novolog) 100 Unit/Ml Vial) 5 unit SQ AC-TID [facility] Last Admin: 12/05/23 17:35 Dose: 5 unit Insulin Detemir (Insulin Detemir (Levemir) 100 Unit/Ml Syr) 25 unit SQ DAILY [facility] Last Admin: 12/05/23 11:06 Dose: 25 unit Lactobacillus Acidophilus (Lactobacillus Acidophilus/Pect 1 Each Capsule) 1 each PO BID [facility] Last Admin: 12/05/23 09:12 Dose: 1 each Levothyroxine Sodium (Levothyroxine 75 Mcg Tab) 150 mcg PO DAILY@0630 [facility] Last Admin: 12/05/23 06:21 Dose: 150 mcg Lidocaine (Lidocaine 4% Patch) 1 patch TOPICAL DAILY [facility]; Protocol Last Admin: 12/05/23 09:54 Dose: 1 patch Magnesium Oxide (Magnesium Oxide 400 Mg Tab) 400 mg PO DAILY [facility] Last Admin: 12/05/23 09:54 Dose: 400 mg Methocarbamol (Methocarbamol 500 Mg Tab) 500 mg PO TID PRN PRN Reason: Muscle Pain Metoprolol Succinate (Metoprolol Succinate (Er) 25 Mg Tab.Er.24h) 25 mg PO DAILY [facility] Last Admin: 12/05/23 09:54 Dose: 25 mg Midodrine (Midodrine 5 Mg Tab) 5 mg PO AC-BID [facility] Last Admin: 12/05/23 17:36 Dose: 5 mg Miscellaneous Information (Pneumonia Protocol Utilized 1 Each Misc) 1 each PO ONCE PRN PRN Reason: Per Protocol Morphine Sulfate (Morphine Sulfate 4 Mg/Ml Syringe) 4 mg IVP Q6HR PRN PRN Reason: Pain Last Admin: 11/24/23 22:29 Dose: 4 mg Multivitamins (Multivitamins, Thera 1 Each Tab) 1 each PO DAILY [facility] Last Admin: 12/05/23 09:55 Dose: 1 each Nystatin (Nystatin 100,000 Unit/Gm Powd 15 Gm) 1 applic TOPICAL BID [facility]; Protocol Last Admin: 12/05/23 11:06 Dose: 1 applic Oxycodone/Acetaminophen (Oxycodone-Apap 10-325mg 1 Each Tab) 1 each PO QID PRN PRN Reason: Pain Last Admin: 12/05/23 06:20 Dose: 1 each Pantoprazole Sodium (Pantoprazole 40 Mg Tablet) 40 mg PO AC-BRKFST [facility] Last Admin: 12/05/23 09:12 Dose: 40 mg Potassium Chloride (Potassium Chloride Er 10 Meq Tab.Er.Prt) 10 meq PO DAILY [facility] Last Admin: 12/05/23 09:54 Dose: 10 meq Prednisone (Prednisone 20 Mg Tab) 20 mg PO DAILY [facility] Last Admin: 12/05/23 09:54 Dose: 20 mg Senna (Sennosides 8.6 Mg Tab) 17.2 mg PO DAILY PRN PRN Reason: Constipation Last Admin: 11/30/23 08:55 Dose: 17.2 mg Voriconazole (Voriconazole 200 Mg Tab) 200 mg PO Q12HR [facility]; Protocol On examination: VITAL SIGNS: [8.4, 78, 18, 11 2 x 64, 93% on half liter] GENERAL APPEARANCE: Reclining in bed, awake, comfortable. HEENT: Normal external appearance of nose and ear. Oral cavity normal EYES: Pupils equal. Conjunctiva normal. NECK: JVD not able to assess. Mass not palpable. RESPIRATORY: Respiratory effort normal. Lungs decreased breath sounds CARDIOVASCULAR: First and second sounds normal. No edema. ABDOMEN: Soft. Liver and spleen not palpable. No tenderness. No mass palpable. Only catheter PSYCHIATRY: Alert and oriented x3. Mood and affect normal. Assessment plan: -Acute UTI with cystitis secondary to Pseudomonas aeruginosa and Regina glabrata Patient completed course of IV cefepime. Placed on Vfend-being followed by ID -Hyperlipidemia Lipitor -Depression and anxiety Lexapro -Diabetes mellitus type 2 chronically on Insulin. Uncontrolled. Increased dose of Lantus to 30 units and NovoLog and 8 units before meals 3 times a day -Hypothyroid, with history of thyroid cancer Synthroid -Essential hypertension Toprol-XL -GERD Prilosec -Chronic fibromyalgia -Primary osteoarthritis -Diabetic peripheral neuropathy -Chronic back and lower leg pain. -Chronic urinary incontinence Photic Sheehan -Chronic medical debility and gait dysfunction Wheelchair and walker.
[2023-12-06] MEDS: SODIUM CHLORIDE 0.9% 1,000 ML IV SCH (00:36)
--- NOTE | 2023-12-06 03:40 | P.PN ---
Subjective Progress Note Date: 12/05/23 Principal diagnosis: reason for follow-up is gram-negative UTI This is a telehealth visit Patient is a 78-year-old female with a past medical history significant for CVA TIA diabetes mellitus hyperlipidemia history of bilateral lower extremity ulcer UTI, patient was brought into the hospital for evaluation of confusion, patient was noticed to have elevated white count and positive UA concerning for UTI. On today's evaluation that is 12/05/2023 the patient remains to be afebrile, the patient is breathing comfortably currently on 2 L nasal cannula oxygen but denies having any chest pain shortness of breath, did have occasional cough but no sputum, no nausea no vomiting no abdominal pain and no diarrhea. No new labs has been obtained today urine culture now growing Regina glabrata Objective - Vital Signs Vital signs: Vital Signs Temp 98.4 F 12/05/23 14:00 Pulse 76 12/05/23 16:05 Resp 18 12/05/23 14:00 BP 112/64 12/05/23 14:00 Pulse Ox 93 L 12/05/23 14:00 FiO2 Intake & Output 12/04/23 12/05/23 12/05/23 18:59 06:59 18:59 Output Total 300 525 Balance -300 -525 Output: Urine 300 525 Uretheral (Sheehan) 525 Other: Voiding Method Indwelling Catheter Indwelling Catheter Indwelling Catheter - Exam Elderly female lying in bed in no distress Respiratory system unlabored breathing decreased breath sound the base Abdominal soft no tenderness Extremities no edema feet Exam completed with the help of BEHAVIORAL HEALTH SPECIALIST - Labs CBC & Chem 7: 12/01/23 05:59 12/01/23 05:59 Labs: Abnormal Lab Results - Last 24 Hours (Table) 12/04/23 12/04/23 12/05/23 Range/Units 17:27 21:08 07:31 POC Glucose (mg/dL) 322 H 328 H 203 H (70-110) mg/dL 12/05/23 Range/Units 12:07 POC Glucose (mg/dL) 296 H (70-110) mg/dL Assessment and Plan (1) Leukocytosis Current Visit: Yes Status: Acute Code(s): D72.829 - ELEVATED WHITE BLOOD CELL COUNT, UNSPECIFIED SNOMED Code(s): 139816395 (2) UTI (urinary tract infection) Current Visit: Yes Status: Acute Code(s): N39.0 - URINARY TRACT INFECTION, SITE NOT SPECIFIED SNOMED Code(s): 11140297 Plan: 1patient presented to hospital with confusion and weakness did have elevated white count, positive UA and urinary symptoms concerning for a symptomatic UTI likely from enteric gram-negative pathogen 2-patient urine culture has been finalized with Pseudomonas that is sensitive to cefepime, patient has received adequate treatment for Pseudomonas. Will discontinue cefepime 3- repeat UA after change of Sheehan catheter is positive and cultures are currently growing Regina glabrata 4-we will discontinue Diflucan give a short course of voriconazole 200 mg twice a day x 3 days Dictation was produced using [employer] dictation software. please excuse any grammatical, word or spelling errors. Time with Patient: Less than 30
[2023-12-06] MEDS: LEVOTHYROXINE 75 MCG TAB PO SCH (05:56)
[2023-12-06 07:29] LABS: Glucose,Whole Blood 134 mg/dL (70-110)
[2023-12-06] MEDS: IPRATROPIUM-ALBUTEROL 3 ML NEB INHALATION SCH ×4 (08:00→20:43)
[2023-12-06] MEDS: INSULIN ASPART (NovoLOG) 100 UNIT/ML VIAL SQ SCH ×7 (09:01→20:35)
[2023-12-06] MEDS: MIDODRINE 5 MG TAB PO SCH ×2 (09:02→16:11)
[2023-12-06] MEDS: predniSONE 20 MG TAB PO SCH (09:02)
[2023-12-06] MEDS: MAGNESIUM OXIDE 400 MG TAB PO SCH (09:03)
[2023-12-06] MEDS: POTASSIUM CHLORIDE ER 10 MEQ TAB.ER.PRT PO SCH (09:03)
[2023-12-06] MEDS: CHOLECALCIFEROL 25 MCG (1000 IU) TABLET PO SCH (09:03)
[2023-12-06] MEDS: DILTIAZEM ORAL 30 MG TAB PO SCH ×2 (09:03→20:35)
[2023-12-06] MEDS: PANTOPRAZOLE 40 MG TABLET PO SCH (09:03)
[2023-12-06] MEDS: NYSTATIN 100,000 UNIT/GM POWD 15 GM TOPICAL SCH ×2 (09:03→20:36)
[2023-12-06] MEDS: MULTIVITAMINS, THERA 1 EACH TAB PO SCH (09:03)
[2023-12-06] MEDS: LACTOBACILLUS ACIDOPHILUS/PECT 1 EACH CAPSULE PO SCH ×2 (09:04→20:35)
[2023-12-06] MEDS: METOPROLOL SUCCINATE (ER) 25 MG TAB.ER.24H PO SCH (09:04)
[2023-12-06] MEDS: ESCITALOPRAM 10 MG TAB PO SCH (09:04)
[2023-12-06] MEDS: LIDOCAINE 4% PATCH TOPICAL SCH (09:04)
[2023-12-06] MEDS: INSULIN DETEMIR (LEVEMIR) 100 UNIT/ML SYR SQ SCH (11:41)
[2023-12-06] MEDS: VORICONAZOLE 200 MG TAB PO SCH ×2 (11:42→22:06)
[2023-12-06 13:03] LABS: Glucose,Whole Blood 292 mg/dL (70-110)
[2023-12-06] MEDS: FUROSEMIDE 20 MG TAB PO SCH (16:11)
[2023-12-06 17:23] LABS: Glucose,Whole Blood 341 mg/dL (70-110)
[2023-12-06 20:22] LABS: Glucose,Whole Blood 367 mg/dL (70-110)
[2023-12-06] MEDS: ATORVASTATIN 10 MG TAB PO SCH (20:35)
--- NOTE | 2023-12-07 | P.PN ---
Progress Note - Text Progress Note Date: 12/06/23 Hospital course: I'm rounding for Dr. Eloy Griffin 12/05/2023: Admitted with acute UTI. Positive for Pseudomonas. Received IV cefepime. Completed course. Also growing yEast. Given Diflucan. Sheehan catheter was changed. Has decreased appetite. Tired. In bed. Bilateral foot wounds. 12/06/2023: Tired. Eating Ensure. Oral intake encouraged. On Vfend. Active Medications Acetaminophen (Acetaminophen Tab 325 Mg Tab) 650 mg PO Q6HR PRN PRN Reason: Mild Pain or Fever > 100.5 Last Admin: 12/03/23 20:13 Dose: 650 mg Albuterol/Ipratropium (Ipratropium-Albuterol 3 Ml Neb) 3 ml INHALATION RT-QID [facility] Last Admin: 12/06/23 20:43 Dose: 3 ml Alprazolam (Alprazolam 0.5 Mg Tab) 0.5 mg PO BID PRN PRN Reason: Anxiety Last Admin: 12/05/23 21:14 Dose: 0.5 mg Atorvastatin Calcium (Atorvastatin 10 Mg Tab) 10 mg PO HS [facility] Last Admin: 12/06/23 20:35 Dose: 10 mg Benzonatate (Benzonatate 100 Mg Cap) 100 mg PO TID PRN PRN Reason: Cough Last Admin: 12/04/23 01:52 Dose: 100 mg Carbidopa/Levodopa (Carbidopa-Levodopa 25-100 Mg 1 Each Tab) 1 each PO DAILY PRN PRN Reason: restless legs Cholecalciferol (Cholecalciferol 25 Mcg (1000 Iu) Tablet) 50 mcg PO DAILY [facility] Last Admin: 12/06/23 09:03 Dose: 50 mcg Dextrose/Water (Dextrose 50% Syringe 50 Ml) 25 ml IVP PER PROTOCOL PRN; Protocol PRN Reason: Hypoglycemia Dextrose/Water (Dextrose 50% Syringe 50 Ml) 50 ml IVP PER PROTOCOL PRN; Protocol PRN Reason: Hypoglycemia Diltiazem HCl (Diltiazem Oral 30 Mg Tab) 30 mg PO BID [facility] Last Admin: 12/06/23 20:35 Dose: 30 mg Escitalopram Oxalate (Escitalopram 10 Mg Tab) 10 mg PO DAILY [facility] Last Admin: 12/06/23 09:04 Dose: 10 mg Furosemide (Furosemide 20 Mg Tab) 20 mg PO AC-SUPPER [facility] Last Admin: 12/06/23 16:11 Dose: 20 mg Sodium Chloride (Saline 0.9%) 1,000 mls @ 20 mls/hr IV .Q24H [facility] Last Admin: 12/06/23 00:36 Dose: Not Given Insulin Aspart (Insulin Aspart (Novolog) 100 Unit/Ml Vial) 0 unit SQ ACHS [facility]; Protocol Last Admin: 12/06/23 20:35 Dose: 15 unit Insulin Aspart (Insulin Aspart (Novolog) 100 Unit/Ml Vial) 8 unit SQ AC-TID [facility] Last Admin: 12/06/23 18:01 Dose: 8 unit Insulin Detemir (Insulin Detemir (Levemir) 100 Unit/Ml Syr) 30 unit SQ DAILY [facility] Last Admin: 12/06/23 11:41 Dose: Not Given Lactobacillus Acidophilus (Lactobacillus Acidophilus/Pect 1 Each Capsule) 1 each PO BID [facility] Last Admin: 12/06/23 20:35 Dose: 1 each Levothyroxine Sodium (Levothyroxine 75 Mcg Tab) 150 mcg PO DAILY@0630 [facility] Last Admin: 12/06/23 05:56 Dose: 150 mcg Lidocaine (Lidocaine 4% Patch) 1 patch TOPICAL DAILY [facility]; Protocol Last Admin: 12/06/23 09:04 Dose: 1 patch Magnesium Oxide (Magnesium Oxide 400 Mg Tab) 400 mg PO DAILY [facility] Last Admin: 12/06/23 09:03 Dose: 400 mg Methocarbamol (Methocarbamol 500 Mg Tab) 500 mg PO TID PRN PRN Reason: Muscle Pain Metoprolol Succinate (Metoprolol Succinate (Er) 25 Mg Tab.Er.24h) 25 mg PO DAILY [facility] Last Admin: 12/06/23 09:04 Dose: 25 mg Midodrine (Midodrine 5 Mg Tab) 5 mg PO AC-BID [facility] Last Admin: 12/06/23 16:11 Dose: 5 mg Miscellaneous Information (Pneumonia Protocol Utilized 1 Each Misc) 1 each PO ONCE PRN PRN Reason: Per Protocol Morphine Sulfate (Morphine Sulfate 4 Mg/Ml Syringe) 4 mg IVP Q6HR PRN PRN Reason: Pain Last Admin: 11/24/23 22:29 Dose: 4 mg Multivitamins (Multivitamins, Thera 1 Each Tab) 1 each PO DAILY [facility] Last Admin: 12/06/23 09:03 Dose: 1 each Nystatin (Nystatin 100,000 Unit/Gm Powd 15 Gm) 1 applic TOPICAL BID [facility]; Protocol Last Admin: 12/06/23 20:36 Dose: 1 applic Oxycodone/Acetaminophen (Oxycodone-Apap 10-325mg 1 Each Tab) 1 each PO QID PRN PRN Reason: Pain Last Admin: 12/05/23 21:14 Dose: 1 each Pantoprazole Sodium (Pantoprazole 40 Mg Tablet) 40 mg PO AC-BRKFST [facility] Last Admin: 12/06/23 09:03 Dose: 40 mg Potassium Chloride (Potassium Chloride Er 10 Meq Tab.Er.Prt) 10 meq PO DAILY [facility] Last Admin: 12/06/23 09:03 Dose: 10 meq Prednisone (Prednisone 20 Mg Tab) 20 mg PO DAILY [facility] Last Admin: 12/06/23 09:02 Dose: 20 mg Senna (Sennosides 8.6 Mg Tab) 17.2 mg PO DAILY PRN PRN Reason: Constipation Last Admin: 11/30/23 08:55 Dose: 17.2 mg Voriconazole (Voriconazole 200 Mg Tab) 200 mg PO Q12HR [facility]; Protocol Last Admin: 12/06/23 22:06 Dose: 200 mg On examination: VITAL SIGNS: 97.7, 84, 17, 120/77, 95% on 2 L GENERAL APPEARANCE: Reclining in bed, awake, tired HEENT: Normal external appearance of nose and ear. Oral cavity normal EYES: Pupils equal. Conjunctiva normal. NECK: JVD not able to assess. Mass not palpable. RESPIRATORY: Respiratory effort normal. Lungs decreased breath sounds CARDIOVASCULAR: First and second sounds normal. No edema. ABDOMEN: Soft. Liver and spleen not palpable. No tenderness. No mass palpable. Only catheter PSYCHIATRY: Alert and oriented x3. Mood and affect tired Assessment plan: -Acute UTI with cystitis secondary to Pseudomonas aeruginosa and Regina glabrata Patient completed course of IV cefepime. Placed on Vfend-being followed by ID -Hyperlipidemia Lipitor -Depression and anxiety Lexapro -Diabetes mellitus type 2 chronically on Insulin. Uncontrolled. Lantus to 30 units and NovoLog and 8 units before meals 3 times a day -Hypothyroid, with history of thyroid cancer Synthroid -Essential hypertension Toprol-XL -GERD Prilosec -Chronic fibromyalgia -Primary osteoarthritis -Diabetic peripheral neuropathy -Chronic back and lower leg pain. -Chronic urinary incontinence Photic Sheehan -Chronic medical debility and gait dysfunction Wheelchair and walker. Decrease prednisone to 15 mg. Antibiotics per ID. Encourage oral intake.
--- NOTE | 2023-12-07 02:02 | P.PN ---
Subjective Progress Note Date: 12/06/23 Principal diagnosis: reason for follow-up is gram-negative UTI This is a telehealth visit Patient is a 78-year-old female with a past medical history significant for CVA TIA diabetes mellitus hyperlipidemia history of bilateral lower extremity ulcer UTI, patient was brought into the hospital for evaluation of confusion, patient was noticed to have elevated white count and positive UA concerning for UTI. On today's evaluation that is 12/06/2023 the patient continues to be afebrile, the patient is breathing comfortably on 2 L nasal cannula oxygen, patient denies having any chest pain occasional cough no sputum production, the pt denies nausea vomiting no abdominal pain no diarrhea No new labs obtained today Objective - Vital Signs Vital signs: Vital Signs Temp 98.1 F 12/06/23 07:30 Pulse 72 12/06/23 08:14 Resp 16 12/06/23 07:30 BP 144/80 12/06/23 07:30 Pulse Ox 96 12/06/23 08:00 FiO2 2 12/06/23 08:00 Intake & Output 12/05/23 12/06/23 12/06/23 18:59 06:59 18:59 Intake Total 240 Output Total 200 Balance 240 -200 Intake: Oral 240 Output: Urine 200 Other: Voiding Method Indwelling Catheter Indwelling Catheter - Exam Elderly female lying in bed in no distress Respiratory system unlabored breathing decreased breath sound the base Abdominal soft no tenderness Extremities no edema feet Exam completed with the help of COLLET DRILLER - Labs CBC & Chem 7: 12/01/23 05:59 12/01/23 05:59 Labs: Abnormal Lab Results - Last 24 Hours (Table) 12/05/23 12/05/23 12/05/23 Range/Units 12:07 17:15 19:45 POC Glucose (mg/dL) 296 H 250 H 282 H (70-110) mg/dL 12/06/23 Range/Units 07:28 POC Glucose (mg/dL) 134 H (70-110) mg/dL Assessment and Plan (1) Leukocytosis Current Visit: Yes Status: Acute Code(s): D72.829 - ELEVATED WHITE BLOOD CELL COUNT, UNSPECIFIED SNOMED Code(s): 327114091 (2) UTI (urinary tract infection) Current Visit: Yes Status: Acute Code(s): N39.0 - URINARY TRACT INFECTION, SITE NOT SPECIFIED SNOMED Code(s): 94946035 Plan: 1patient presented to hospital with confusion and weakness did have elevated white count, positive UA and urinary symptoms concerning for a symptomatic UTI likely from enteric gram-negative pathogen 2-patient urine culture has been finalized with Pseudomonas that is sensitive to cefepime, patient has received adequate treatment for Pseudomonas. Will discontinue cefepime 3- repeat UA after change of Sheehan catheter is positive and cultures are currently growing Regina glabrata 4-patient to continue with voriconazole 200 mg twice a day x 3 days Dictation was produced using [employer] dictation software. please excuse any grammatical, word or spelling errors. Time with Patient: Less than 30
[2023-12-07] MEDS: SODIUM CHLORIDE 0.9% 1,000 ML IV SCH ×2 (06:10→21:04)
[2023-12-07] MEDS: LEVOTHYROXINE 75 MCG TAB PO SCH (06:10)
[2023-12-07 07:33] LABS: Glucose,Whole Blood 184 mg/dL (70-110)
[2023-12-07] MEDS: IPRATROPIUM-ALBUTEROL 3 ML NEB INHALATION SCH ×4 (08:01→20:31)
[2023-12-07] MEDS: INSULIN ASPART (NovoLOG) 100 UNIT/ML VIAL SQ SCH ×7 (08:49→21:04)
[2023-12-07] MEDS: CHOLECALCIFEROL 25 MCG (1000 IU) TABLET PO SCH (08:50)
[2023-12-07] MEDS: PANTOPRAZOLE 40 MG TABLET PO SCH (08:50)
[2023-12-07] MEDS: MIDODRINE 5 MG TAB PO SCH ×2 (08:50→17:33)
[2023-12-07] MEDS: INSULIN DETEMIR (LEVEMIR) 100 UNIT/ML SYR SQ SCH (08:51)
[2023-12-07] MEDS: ESCITALOPRAM 10 MG TAB PO SCH (08:51)
[2023-12-07] MEDS: DILTIAZEM ORAL 30 MG TAB PO SCH ×2 (08:51→21:03)
[2023-12-07] MEDS: predniSONE 5 MG TAB PO SCH (08:52)
[2023-12-07] MEDS: METOPROLOL SUCCINATE (ER) 25 MG TAB.ER.24H PO SCH (08:52)
[2023-12-07] MEDS: LACTOBACILLUS ACIDOPHILUS/PECT 1 EACH CAPSULE PO SCH ×2 (08:52→21:03)
[2023-12-07] MEDS: LIDOCAINE 4% PATCH TOPICAL SCH (08:52)
[2023-12-07] MEDS: MAGNESIUM OXIDE 400 MG TAB PO SCH (08:52)
[2023-12-07] MEDS: POTASSIUM CHLORIDE ER 10 MEQ TAB.ER.PRT PO SCH (08:52)
[2023-12-07] MEDS: MULTIVITAMINS, THERA 1 EACH TAB PO SCH (08:52)
[2023-12-07] MEDS: VORICONAZOLE 200 MG TAB PO SCH ×2 (08:53→21:03)
[2023-12-07] MEDS: NYSTATIN 100,000 UNIT/GM POWD 15 GM TOPICAL SCH ×2 (08:53→21:04)
[2023-12-07] MEDS: oxyCODONE-APAP 10-325MG 1 EACH TAB PO PRN (09:00)
--- NOTE | 2023-12-07 09:48 | CDI ---
Documentation Clarification Form Date: 12/01/2023 12:26:00 PM From: Bonita Samuel Phone: [phone] Admit Date: 11/23/2023 10:39:00 PM Patient Name: Miriam Cardoso Visit Number: [id number] Discharge Date: ATTENTION: The Clinical Documentation Specialists (CDI) and [facility] Coding Staff appreciate your assistance in clarifying documentation. Please respond to the clarification below the line at the bottom and electronically sign. The CDI & [facility] Coding staff will review the response and follow-up if needed. Please note: Queries are made part of the Legal Health Record. If you have any questions, please contact the author of this message via ITS. Dr. Eloy Griffin UTI is documented 11/30, Medicine note and patient has Sheehan catheter upon arrival, documented in ED note, 11/23. Additional clarification regarding the etiology of the UTI is requested. History/Risk Factors: 78-year-old female presents to the ED with confusion from [facility]. Medical History: CVA/TIA, Cancer, DM2, Fibromyalgia and Renal Disease. 11/23 H&P. Clinical Indicators: Vital Signs, 11/23: B/P 154/89; HR 110; Temp 97.4F Oral; RR 20; SpO2 98% RA WBC, 11/23: 18.8 Urinalysis: 11/23 Light yellow color; cloudy; protein 2+; Ketones 2+; Blood small; Nitrate positive; Leukocyte Esterase Large, RBC 30; WBC 74; Bacteria Many; Hyaline Casts 37; Mucus Many; Yeast Budding Many. Urine Culture: 11/26 Pseudomonas aeruginosa Treatment Antibiotics: 11/23 Ceftriaxone 2gm IVPB x1; 11/23 Azithromycin 500mg IVPB x 1; 11/25 Zithromax 500mg PO Daily x 2 doses; 11/25 Ceftriaxone 2gm IVPB x1; 11/25 11/30 Cefepime HCI 2gm IVPB Q8HR; 11/30 Cefepime HCI 2gm IVPB Q12HR Please clarify the etiology of the UTI, if known: [ ] UTI due to Sheehan catheter [ ] UTI not due to Sheehan catheter [ ] Other condition, please specify [ ] Unable to determine (Template Last Revised: January 2021) MTDD
--- NOTE | 2023-12-07 09:49 | CDI ---
Documentation Clarification Form Date: 12/01/2023 12:50:00 PM From: Bonita Samuel Phone: [phone] Admit Date: 11/23/2023 10:39:00 PM Patient Name: Miriam Cardoso Visit Number: [id number] Discharge Date: ATTENTION: The Clinical Documentation Specialists (CDI) and [facility] Coding Staff appreciate your assistance in clarifying documentation. Please respond to the clarification below the line at the bottom and electronically sign. The CDI & [facility] Coding staff will review the response and follow-up if needed. Please note: Queries are made part of the Legal Health Record. If you have any questions, please contact the author of this message via ITS. Dr. Eloy Griffin A Right Heel pressure ulcer present on admission is documented 11/24 -11/30, Nursing pressure injury assessment. Additional clarification regarding the stage of the pressure ulcer is requested. History/Risk Factors: 78-year-old female presents to the ED with confusion from [facility]. Medical History: CVA/TIA, Cancer, DM2, Fibromyalgia and Renal Disease. 11/23 H&P. Clinical Indicators: Location: Right Heel / Ankle Wound description: none Treatment: Floating heels, Foam with border; Ankle with moist optical silver and optifoam, Absorbent pad. Please clarify the stage of pressure ulcer Right Heel, if known: [ ] Deep tissue injury Right Heel [ ] Stage 1 Pressure Ulcer Right Heel [ ] Stage 2 Pressure Ulcer Right Heel [ ] Stage 3 Pressure Ulcer Right Heel [ ] Stage 4 Pressure Ulcer Right Heel [ ] Unstageable Pressure ulcer Right Heel [ ] Other condition, please specify [ ] Unable to determine Clinical Definitions: Stage 1 Pressure Ulcer: intact skin, non-blanching redness of local area Stage 2 Pressure Ulcer: Partial thickness, loss of dermis, pink wound bed Stage 3 Pressure Ulcer: Full thickness tissue loss Stage 4 Pressure Ulcer: Full thickness tissue loss with exposed bone, tendon, or muscle. Unstageable pressure ulcer: Full thickness tissue loss in which the base of the ulcer is covered by slough (yellow, ramachandran, carey, green or brown) and/or eschar (ramachandran, brown or black) in the wound bed. (Template Last Revised: January 2021) JUANITA
[2023-12-07 12:20] LABS: Glucose,Whole Blood 248 mg/dL (70-110)
[2023-12-07 17:08] LABS: Glucose,Whole Blood 327 mg/dL (70-110)
[2023-12-07] MEDS: FUROSEMIDE 20 MG TAB PO SCH (17:33)
[2023-12-07 20:08] LABS: Glucose,Whole Blood 429 mg/dL (70-110)
[2023-12-07] MEDS ORDERED: INSULIN ASPART (NovoLOG) 100 UNIT/ML VIAL SQ ONE (20:56)
[2023-12-07] MEDS: ATORVASTATIN 10 MG TAB PO SCH (21:03)
--- NOTE | 2023-12-07 22:02 | PN ---
PROGRESS NOTE SUBJECTIVE: UTI due to Sheehan catheter, stage II pressure ulcer on the right heel. MMODL / IJN: [id number] /
--- NOTE | 2023-12-07 23:09 | P.PN ---
Subjective Progress Note Date: 12/07/23 Principal diagnosis: reason for follow-up is gram-negative UTI This is a telehealth visit Patient is a 78-year-old female with a past medical history significant for CVA TIA diabetes mellitus hyperlipidemia history of bilateral lower extremity ulcer UTI, patient was brought into the hospital for evaluation of confusion, patient was noticed to have elevated white count and positive UA concerning for UTI. On today's evaluation that is 12/07/2023 the patient remains to be afebrile, patient is breathing comfortably on 2 L nasal cannula supplemental oxygen, the patient has been complaining of chest pain also have a cough not bringing up any sputum some nausea but no vomiting no abdominal pain no diarrhea has been reported by the nursing staff. No new labs has been obtained today Objective - Vital Signs Vital signs: Vital Signs Temp 97.5 F L 12/07/23 07:30 Pulse 82 12/07/23 08:17 Resp 18 12/07/23 07:30 BP 131/81 12/07/23 07:30 Pulse Ox 96 12/07/23 08:04 FiO2 2 12/07/23 08:04 Intake & Output 12/06/23 12/07/23 12/07/23 18:59 06:59 18:59 Intake Total 118 Output Total 450 1000 Balance -450 -882 Intake: Oral 118 Output: Urine 450 1000 Other: Voiding Method Indwelling Catheter Indwelling Catheter - Exam Elderly female lying in bed in no distress Respiratory system unlabored breathing decreased breath sound the base Abdominal soft no tenderness Extremities no edema feet Exam completed with the help of LATHMAKER - Labs CBC & Chem 7: 12/01/23 05:59 12/01/23 05:59 Labs: Abnormal Lab Results - Last 24 Hours (Table) 12/06/23 12/06/23 12/06/23 Range/Units 12:56 17:21 20:19 POC Glucose (mg/dL) 292 H 341 H 367 H (70-110) mg/dL 12/07/23 Range/Units 07:32 POC Glucose (mg/dL) 184 H (70-110) mg/dL Assessment and Plan (1) Leukocytosis Current Visit: Yes Status: Acute Code(s): D72.829 - ELEVATED WHITE BLOOD CELL COUNT, UNSPECIFIED SNOMED Code(s): 984825782 (2) UTI (urinary tract infection) Current Visit: Yes Status: Acute Code(s): N39.0 - URINARY TRACT INFECTION, SITE NOT SPECIFIED SNOMED Code(s): 09369525 Plan: 1patient presented to hospital with confusion and weakness did have elevated white count, positive UA and urinary symptoms concerning for a symptomatic UTI likely from enteric gram-negative pathogen 2-patient urine culture has been finalized with Pseudomonas that is sensitive to cefepime, patient has received adequate treatment for Pseudomonas. Will discontinue cefepime 3- repeat UA after change of Sheehan catheter is positive and cultures are currently growing Regina glabrata 4-patient to continue with voriconazole 200 mg twice a day to finish a 3-day course of therapy recommending no antibiotic or antifungal on discharge Dictation was produced using [employer] dictation software. please excuse any grammatical, word or spelling errors. Time with Patient: Less than 30
--- NOTE | 2023-12-08 00:45 | PN ---
PROGRESS NOTE SUBJECTIVE: The patient will possibly go to rehab. The patient will continue on current treatment for bilateral lower extremities. Sheehan catheter was changed. Taking Ensure. Oral intake better. OBJECTIVE: VITAL SIGNS: Temperature 97.4, pulse , blood pressure 120/77, O2 of 95% on 2 L. HEENT: Pupils equal, round, reactive. CARDIOVASCULAR: S1, S2. LUNGS: Clear. GI: Soft. HEMATOLOGY: Negative Homans. PSYCH: Fair mood and affect. ASSESSMENT: Acute urinary tract infection with cystitis, Pseudomonas, Regina, continue cefepime. Dyslipidemia, on Lipitor. Depression, on Lexapro. Diabetes, on Lantus and NovoLog. Hypothyroidism, on Synthroid. Hypertension, on Toprol-XL. Gastroesophageal reflux disease, on Prilosec. fibromyalgia, osteoarthritis, peripheral neuropathy, chronic urinary incontinence, current medical debility, gait dysfunction. decrease prednisone to 15. Antibiotics Condition stable. Prognosis is guarded. MMODL / IJN: [id number] /
[2023-12-08] MEDS: LEVOTHYROXINE 75 MCG TAB PO SCH (05:59)
[2023-12-08 07:13] LABS: Glucose,Whole Blood 159 mg/dL (70-110)
[2023-12-08] MEDS: IPRATROPIUM-ALBUTEROL 3 ML NEB INHALATION SCH ×4 (07:47→18:16)
[2023-12-08] MEDS: predniSONE 5 MG TAB PO SCH (08:55)
[2023-12-08] MEDS: CHOLECALCIFEROL 25 MCG (1000 IU) TABLET PO SCH (08:55)
[2023-12-08] MEDS: ESCITALOPRAM 10 MG TAB PO SCH (08:55)
[2023-12-08] MEDS: MULTIVITAMINS, THERA 1 EACH TAB PO SCH (08:55)
[2023-12-08] MEDS: POTASSIUM CHLORIDE ER 10 MEQ TAB.ER.PRT PO SCH (08:56)
[2023-12-08] MEDS: LACTOBACILLUS ACIDOPHILUS/PECT 1 EACH CAPSULE PO SCH ×2 (08:56→21:13)
[2023-12-08] MEDS: MAGNESIUM OXIDE 400 MG TAB PO SCH (08:56)
[2023-12-08] MEDS: NYSTATIN 100,000 UNIT/GM POWD 15 GM TOPICAL SCH ×2 (08:56→21:13)
[2023-12-08] MEDS: PANTOPRAZOLE 40 MG TABLET PO SCH (08:56)
[2023-12-08] MEDS: MIDODRINE 5 MG TAB PO SCH ×2 (08:56→17:59)
[2023-12-08] MEDS: INSULIN ASPART (NovoLOG) 100 UNIT/ML VIAL SQ SCH ×7 (08:56→21:12)
[2023-12-08] MEDS: DILTIAZEM ORAL 30 MG TAB PO SCH ×2 (08:56→21:13)
[2023-12-08] MEDS: METOPROLOL SUCCINATE (ER) 25 MG TAB.ER.24H PO SCH (08:56)
[2023-12-08] MEDS: VORICONAZOLE 200 MG TAB PO SCH ×2 (08:56→21:12)
[2023-12-08] MEDS: INSULIN DETEMIR (LEVEMIR) 100 UNIT/ML SYR SQ SCH (08:57)
[2023-12-08] MEDS: LIDOCAINE 4% PATCH TOPICAL SCH (08:57)
[2023-12-08] MEDS: oxyCODONE-APAP 10-325MG 1 EACH TAB PO PRN ×2 (09:01→18:04)
[2023-12-08 12:06] LABS: Glucose,Whole Blood 179 mg/dL (70-110)
--- NOTE | 2023-12-08 13:27 | DS ---
DISCHARGE SUMMARY DISCHARGE DIAGNOSES: 1. Community-acquired pneumonia. 2. Altered mental status due to hypoxemia, CHF, and drug-resistant UTI, leukocytosis. 3. She has atrial fibrillation, asthma, COPD, generalized weakness, lumbar stenosis, spinal stenosis, diabetic neuropathy, anxiety, hypothyroidism. MEDICATIONS: 1. Cardizem 30 mg b.i.d. 2. Diflucan 100 mg daily for 5 days. 3. Lasix 20 mg a.c. supper. 4. Percocet 10/325 q.i.d. 5. Xanax 0.5 b.i.d. 6. Synthroid 150 mcg daily. 7. DuoNeb q.i.d. around the clock, do not stop these. 8. Lactobacillus probiotic b.i.d. 9. Benzocaine topical lozenges p.r.n. for cough. 10.DuoNeb q.i.d., do not stop these. 11.Tessalon Perles 100 t.i.d. p.r.n. for cough. 12.Diltiazem as mentioned 30 b.i.d.. 13.Accu-Chek protocol a.c. h.s., possibly due to 10 units plus scale of Humalog Quick Pen. 14.Metoprolol succinate 25 mg daily. 15.ProAmatine 5 mg b.i.d. for orthostatic hypotension. 16.Klor-Con 10 mEq daily. 17.Lasix 20 mg daily, as mentioned. 18.Lantus 25 units at night except to senna p.r.n. for constipation. 19.Deltasone 20 mg daily. 20.Methocarbamol 500 mg q.8h. p.r.n. 21.Lipitor 10 mg q.h.s. 22.Vitamin D 350 mcg daily. 23.Vitamin C 500 mg daily. 24.Sinemet q.i.d. for Parkinson's. 25.Lidocaine patch 4% topically daily. 26.Guaifenesin 400 b.i.d. 27.Lexapro 10 daily. 28.Lotrimin powder topically b.i.d. to the abdominal folds. 29.Multivitamin daily. 30.Prilosec 20 b.i.d. 31.Nasal saline spray daily. Go to PT/OT, ambulating with oxygen 24 hours a day 2 L. Do not stop her oxygen, do not stop her breathing treatments. Continue PT, OT, and follow up with Dr. Ndiaye that [facility] and follow with Dr. Griffin in 1-2 weeks when she has time with rehab prognosis guarded. Ambulate as tolerated. Diet as tolerated. Please see further orders. ADA diet and did not suffer oxygen or breathing treatments. Prognosis guarded. Possibly check another urine culture in a week or 2 to make sure she has no urine infection or possibly change her Sheehan catheter. MMODL / IJN: [id number] /
[2023-12-08 17:25] LABS: Glucose,Whole Blood 282 mg/dL (70-110)
[2023-12-08] MEDS: FUROSEMIDE 20 MG TAB PO SCH (17:59)
[2023-12-08] MEDS: ALPRAZolam 0.5 MG TAB PO PRN (18:04)
[2023-12-08 20:58] LABS: Glucose,Whole Blood 368 mg/dL (70-110)
[2023-12-08] MEDS: ATORVASTATIN 10 MG TAB PO SCH (21:12)
[2023-12-08] MEDS: ACETAMINOPHEN TAB 325 MG TAB PO PRN (21:13)
[2023-12-08] MEDS: SODIUM CHLORIDE 0.9% 1,000 ML IV SCH (23:22)
[2023-12-09] MEDS: LEVOTHYROXINE 75 MCG TAB PO SCH (05:57)
[2023-12-09 07:28] LABS: Glucose,Whole Blood 130 mg/dL (70-110)
[2023-12-09] MEDS: INSULIN ASPART (NovoLOG) 100 UNIT/ML VIAL SQ SCH ×7 (08:02→21:08)
[2023-12-09] MEDS: IPRATROPIUM-ALBUTEROL 3 ML NEB INHALATION SCH ×4 (08:04→20:02)
[2023-12-09] MEDS: predniSONE 5 MG TAB PO SCH (09:55)
[2023-12-09] MEDS: MULTIVITAMINS, THERA 1 EACH TAB PO SCH (09:56)
[2023-12-09] MEDS: DILTIAZEM ORAL 30 MG TAB PO SCH ×2 (09:56→21:08)
[2023-12-09] MEDS: VORICONAZOLE 200 MG TAB PO SCH ×2 (09:56→21:08)
[2023-12-09] MEDS: LACTOBACILLUS ACIDOPHILUS/PECT 1 EACH CAPSULE PO SCH ×2 (09:56→21:08)
[2023-12-09] MEDS: METOPROLOL SUCCINATE (ER) 25 MG TAB.ER.24H PO SCH (09:56)
[2023-12-09] MEDS: CHOLECALCIFEROL 25 MCG (1000 IU) TABLET PO SCH (09:56)
[2023-12-09] MEDS: PANTOPRAZOLE 40 MG TABLET PO SCH (09:56)
[2023-12-09] MEDS: MAGNESIUM OXIDE 400 MG TAB PO SCH (09:56)
[2023-12-09] MEDS: POTASSIUM CHLORIDE ER 10 MEQ TAB.ER.PRT PO SCH (09:56)
[2023-12-09] MEDS: ESCITALOPRAM 10 MG TAB PO SCH (09:56)
[2023-12-09] MEDS: LIDOCAINE 4% PATCH TOPICAL SCH (09:57)
[2023-12-09] MEDS: INSULIN DETEMIR (LEVEMIR) 100 UNIT/ML SYR SQ SCH (09:57)
[2023-12-09] MEDS: MIDODRINE 5 MG TAB PO SCH ×2 (09:57→17:45)
[2023-12-09] MEDS: oxyCODONE-APAP 10-325MG 1 EACH TAB PO PRN ×2 (10:07→21:08)
[2023-12-09] MEDS: ALPRAZolam 0.5 MG TAB PO PRN (10:07)
[2023-12-09 10:37] LABS: Basophils % (A) 0 %; Eosinophils # (A) 0.1 k/uL (0-0.7); Eosinophils % (A) 1 %; Hypochromasia Moderate; Lymphocytes # (A) 2.2 k/uL (1.0-4.8); Lymphocytes % (A) 28 %; MCH 28.4 pg (25.0-35.0); MCHC 30.8 g/dL (31.0-37.0); MCV 92.3 fL (80.0-100.0); Mean Platelet Volume 8.8; Monocytes # (A) 0.4 k/uL (0-1.0); Monocytes % (A) 5 %; Neutrophils # (A) 4.9 k/uL (1.3-7.7); Neutrophils % (A) 63 %; Platelet Count 221 k/uL (150-450); RBC 4.22 m/uL (3.80-5.40); RDW 14.8 % (11.5-15.5); WBC 7.9 k/uL (3.8-10.6)
[2023-12-09 11:05] LABS: ALT 31 U/L (4-34); AST 32 U/L (14-36); African American GFR (CKD) >90 (>60 ml/min/1.73 sqM); Albumin 3.4 g/dL (3.5-5.0); Albumin/Globulin Ratio 1.1; Alkaline Phosphatase 142 U/L (38-126); Anion Gap 4 mmol/L; Blood Urea Nitrogen 35 mg/dL (7-17); C Reactive Protein 0.6 mg/dL (<1.0); Calcium 9.7 mg/dL (8.4-10.2); Carbon Dioxide 35 mmol/L (22-30); Chloride 101 mmol/L (98-107); Globulin 3.2 g/dL; Glucose 170 mg/dL (74-99); Non-African American GFR(CKD) 86 (>60 ml/min/1.73 sqM); Potassium 4.5 mmol/L (3.5-5.1); Sodium 140 mmol/L (137-145); Total Bilirubin 0.7 mg/dL (0.2-1.3); Total Protein 6.6 g/dL (6.3-8.2)
[2023-12-09] MEDS: IOPAMIDOL CONTRAST (ORAL USE) VIAL PO PRN ×2 (11:05→12:09)
[2023-12-09 11:48] LABS: Glucose,Whole Blood 197 mg/dL (70-110)
[2023-12-09] MEDS: NYSTATIN 100,000 UNIT/GM POWD 15 GM TOPICAL SCH ×2 (12:09→21:10)
--- NOTE | 2023-12-09 14:13 | CT ---
EXAMINATION TYPE: CT abdomen pelvis w con DATE OF EXAM: 12/09/2023 COMPARISON: 07/04/2020 INDICATION: abdominal pain, tenderness DLP: 2058.5 mGycm, Automated exposure control for dose reduction was used. CONTRAST: 100 mL of Isovue 300. Study performed with Oral Contrast TECHNIQUE: Axial images were obtained from above the diaphragm to the pubic rami in the axial plane a t 5 mm thick sections. Reconstructed images are reviewed on the computer in the coronal plane. FINDINGS: Limited CT sections are obtained the lung bases. The lung bases are clear. CT ABDOMEN: Liver: Normal Spleen: Normal Pancreas: Atrophic Adrenal glands: The adrenal glands are normal. Gallbladder: Surgically absent Kidneys: No masses are evident. No hydronephrosis is present. There is a 1.7 cm cyst on the medial upper pole right kidney. Delayed images were obtained through the kidneys, which remain unremarkable . Aorta: Vascular calcification is within the aorta. Inferior vena cava: Normal. CT PELVIS: Loops of bowel within the abdomen and pelvis are normal. This study is performed with oral contra st which extends to distal ileum which limits bowel evaluation. Mild fecal debris is throughout the c olon. Appendix: Not visualized. No dilated tubular structure or inflammatory change is evident. Urinary bladder: Decompressed a Sheehan catheter. Genitourinary structures: Uterus and ovaries are not identified. Osseous structures: There is a right hip prosthesis. No suspicious lytic or sclerotic lesions. There may be prior vertebroplasty within the L5 level. IMPRESSION: 1. Mild fecal retention. 2. Right renal cyst. 3. No suspicious acute abnormality to account for abdomen pain
[2023-12-09 17:08] LABS: Glucose,Whole Blood 212 mg/dL (70-110)
[2023-12-09] MEDS: FUROSEMIDE 20 MG TAB PO SCH (17:45)
[2023-12-09 20:28] LABS: Glucose,Whole Blood 332 mg/dL (70-110)
[2023-12-09] MEDS: ATORVASTATIN 10 MG TAB PO SCH (21:08)
--- NOTE | 2023-12-10 06:15 | P.PN ---
Subjective Progress Note Date: 12/08/23 Principal diagnosis: reason for follow-up is gram-negative UTI This is a telehealth visit Patient is a 78-year-old female with a past medical history significant for CVA TIA diabetes mellitus hyperlipidemia history of bilateral lower extremity ulcer UTI, patient was brought into the hospital for evaluation of confusion, patient was noticed to have elevated white count and positive UA concerning for UTI. On today's evaluation that is 12/08/2023 the patient continues to be afebrile, patient is breathing comfortably on 2 L nasal cannula oxygen, the patient denies having any chest pain no significant cough or sputum production no nausea vomiting no abdominal pain and no diarrhea has been reported by the nursing staff No new labs Objective - Vital Signs Vital signs: Vital Signs Temp 97.9 F 12/08/23 07:14 Pulse 80 12/08/23 08:00 Resp 16 12/08/23 07:14 BP 118/76 12/08/23 07:14 Pulse Ox 96 12/08/23 07:49 FiO2 2 12/08/23 07:49 Intake & Output 12/07/23 12/08/23 12/08/23 18:59 06:59 18:59 Output Total 175 500 Balance -175 -500 Output: Urine 175 500 Other: Voiding Method Indwelling Catheter Indwelling Catheter - Exam Elderly female lying in bed in no distress Respiratory system unlabored breathing decreased breath sound the base Abdominal soft no tenderness Extremities no edema feet Exam completed with the help of DOCUMENT DESIGN SPECIALIST - Labs CBC & Chem 7: 12/09/23 09:59 12/09/23 09:59 Labs: Abnormal Lab Results - Last 24 Hours (Table) 12/07/23 12/07/23 12/07/23 Range/Units 12:18 17:07 20:06 POC Glucose (mg/dL) 248 H 327 H 429 H (70-110) mg/dL 12/08/23 Range/Units 07:12 POC Glucose (mg/dL) 159 H (70-110) mg/dL Assessment and Plan (1) Leukocytosis Current Visit: Yes Status: Acute Code(s): D72.829 - ELEVATED WHITE BLOOD CELL COUNT, UNSPECIFIED SNOMED Code(s): 101245000 (2) UTI (urinary tract infection) Current Visit: Yes Status: Acute Code(s): N39.0 - URINARY TRACT INFECTION, SITE NOT SPECIFIED SNOMED Code(s): 11714961 Plan: 1patient presented to hospital with confusion and weakness did have elevated white count, positive UA and urinary symptoms concerning for a symptomatic UTI likely from enteric gram-negative pathogen 2-patient urine culture has been finalized with Pseudomonas that is sensitive to cefepime, patient has received adequate treatment for Pseudomonas. Will discontinue cefepime 3- repeat UA after change of Sheehan catheter is positive and cultures are currently growing Regina glabrata 4-patient to continue with voriconazole 200 mg twice a day, however recommending no antibiotic or antifungal on discharge Dictation was produced using [employer] dictation software. please excuse any gramma tical, word or spelling errors. Time with Patient: Less than 30
--- NOTE | 2023-12-10 06:16 | P.PN ---
Subjective Progress Note Date: 12/09/23 Principal diagnosis: reason for follow-up is gram-negative UTI This is a telehealth visit Patient is a 78-year-old female with a past medical history significant for CVA TIA diabetes mellitus hyperlipidemia history of bilateral lower extremity ulcer UTI, patient was brought into the hospital for evaluation of confusion, patient was noticed to have elevated white count and positive UA concerning for UTI. On today's evaluation that is 12/09/2023, the patient is afebrile patient is breathing comfortably on 2 L nasal cannula supplemental oxygen the patient denies chest pain, the patient did have occasional cough no sputum production patient has been complaining of some lower abdominal pain did not have any bowel movement some nausea but no vomiting no urinary symptoms. Patient did have a white count of 7.9, creatinine 0.65 CRP 0.6 Objective - Vital Signs Vital signs: Vital Signs Temp 98.0 F 12/09/23 07:28 Pulse 76 12/09/23 08:16 Resp 16 12/09/23 07:28 BP 116/74 12/09/23 07:28 Pulse Ox 95 12/09/23 07:28 FiO2 2 12/08/23 07:49 Intake & Output 12/08/23 12/09/23 12/09/23 18:59 06:59 18:59 Intake Total 560 Output Total 150 Balance -150 560 Intake: Oral 560 Output: Urine 150 Other: Voiding Method Indwelling Catheter - Exam Elderly female lying in bed in no distress Respiratory system unlabored breathing decreased breath sound the base Abdominal soft, lower abdominal tenderness Extremities no edema feet Exam completed with the help of SCHOOL MANAGER - Labs CBC & Chem 7: 12/09/23 09:59 12/09/23 09:59 Labs: Abnormal Lab Results - Last 24 Hours (Table) 12/08/23 12/08/23 12/08/23 Range/Units 12:05 17:22 20:56 POC Glucose (mg/dL) 179 H 282 H 368 H (70-110) mg/dL 12/09/23 Range/Units 07:27 POC Glucose (mg/dL) 130 H (70-110) mg/dL Assessment and Plan (1) Leukocytosis Current Visit: Yes Status: Acute Code(s): D72.829 - ELEVATED WHITE BLOOD CELL COUNT, UNSPECIFIED SNOMED Code(s): 283264051 (2) UTI (urinary tract infection) Current Visit: Yes Status: Acute Code(s): N39.0 - URINARY TRACT INFECTION, SITE NOT SPECIFIED SNOMED Code(s): 67360201 Plan: 1patient presented to hospital with confusion and weakness did have elevated white count, positive UA and urinary symptoms concerning for a symptomatic UTI likely from enteric gram-negative pathogen 2-patient urine culture has been finalized with Pseudomonas that is sensitive to cefepime, patient has received adequate treatment for Pseudomonas. Will discontinue cefepime 3- repeat UA after change of Sheehan catheter is positive and cultures are currently growing Regina glabrata, patient underlying UTI adequately treated we will go ahead and discontinue voriconazole 4-patient has been complaining of abdominal pain also noted to be slightly tender we will check a CT of abdominal pelvis to rule out intra-abdominal pathology Dictation was produced using [employer] dictation software. please excuse any grammatical, word or spelling errors.
[2023-12-10] MEDS: LEVOTHYROXINE 75 MCG TAB PO SCH (06:30)
[2023-12-10] MEDS: SODIUM CHLORIDE 0.9% 1,000 ML IV SCH ×2 (06:30→21:49)
[2023-12-10 07:40] LABS: Glucose,Whole Blood 143 mg/dL (70-110)
[2023-12-10] MEDS: INSULIN ASPART (NovoLOG) 100 UNIT/ML VIAL SQ SCH ×7 (07:42→21:48)
[2023-12-10] MEDS: IPRATROPIUM-ALBUTEROL 3 ML NEB INHALATION SCH ×4 (07:50→18:11)
--- NOTE | 2023-12-10 08:10 | PN ---
PROGRESS NOTE SUBJECTIVE: This is a 78-year-old white female, I think she has possibly aspirated when she eats. She chokes and has phlegm congestion. OBJECTIVE: CARDIOVASCULAR: S1, S2. LUNGS: Transmitted upper sounds. GI: Soft, nontender. HEMATOLOGY: Negative for Homans. PSYCH: Fair mood and affect. NEUROLOGIC: Cranial nerves intact. Continue current treatment. Await for rehab placement. PT OT is causing some knee injections. Sugars in mid 100s . Carbon dioxide is 25, alkaline phosphatase 142, albumin 3.4. Please see further orders, PT, OT possibly go to rehab center. MMODL / IJN: [id number] /
[2023-12-10] MEDS: LIDOCAINE 4% PATCH TOPICAL SCH (08:48)
[2023-12-10 12:00] LABS: Glucose,Whole Blood 145 mg/dL (70-110)
[2023-12-10] MEDS: INSULIN DETEMIR (LEVEMIR) 100 UNIT/ML SYR SQ SCH (12:10)
--- NOTE | 2023-12-10 13:51 | FL ---
Exam Date: 12/10/2023 1:39 PM. Modified barium swallow for dysphagia. Consistencies administered: Various consistency of barium. Fluoro time: 1 minute 50 seconds No images were sent to PACS. Please see speech pathology report. DAP: Not reported mGym2 Gycm2
[2023-12-10] MEDS: MIDODRINE 5 MG TAB PO SCH ×2 (13:56→18:16)
[2023-12-10] MEDS: predniSONE 5 MG TAB PO SCH (13:57)
[2023-12-10] MEDS: DILTIAZEM ORAL 30 MG TAB PO SCH ×2 (13:58→21:48)
[2023-12-10] MEDS: LACTOBACILLUS ACIDOPHILUS/PECT 1 EACH CAPSULE PO SCH ×2 (13:58→21:48)
[2023-12-10] MEDS: METOPROLOL SUCCINATE (ER) 25 MG TAB.ER.24H PO SCH (13:58)
[2023-12-10] MEDS: CHOLECALCIFEROL 25 MCG (1000 IU) TABLET PO SCH (13:58)
[2023-12-10] MEDS: NYSTATIN 100,000 UNIT/GM POWD 15 GM TOPICAL SCH ×2 (13:59→21:49)
[2023-12-10] MEDS: PANTOPRAZOLE 40 MG TABLET PO SCH (13:59)
[2023-12-10] MEDS: MAGNESIUM OXIDE 400 MG TAB PO SCH (13:59)
[2023-12-10] MEDS: ESCITALOPRAM 10 MG TAB PO SCH (13:59)
[2023-12-10] MEDS: MULTIVITAMINS, THERA 1 EACH TAB PO SCH (13:59)
[2023-12-10] MEDS: POTASSIUM CHLORIDE ER 10 MEQ TAB.ER.PRT PO SCH (13:59)
[2023-12-10 17:22] LABS: Glucose,Whole Blood 248 mg/dL (70-110)
[2023-12-10] MEDS: FUROSEMIDE 20 MG TAB PO SCH (18:13)
[2023-12-10 19:57] LABS: Glucose,Whole Blood 401 mg/dL (70-110)
[2023-12-10] MEDS: ALPRAZolam 0.5 MG TAB PO PRN (21:48)
[2023-12-10] MEDS: ATORVASTATIN 10 MG TAB PO SCH (21:48)
[2023-12-10] MEDS: oxyCODONE-APAP 10-325MG 1 EACH TAB PO PRN (21:48)
--- NOTE | 2023-12-11 00:15 | PN ---
PROGRESS NOTE SUBJECTIVE: I thought she was aspirating when she eats, she chokes. She has some barium, waiting for the modified barium report to come back. We are waiting for the report, I do not see it here. Abdomen and pelvis CT done on December 09, shows a cyst on the right kidney 1.7 cm, at the L5 level. She has mild fecal retention. Right renal cyst. No abdominal pain. Prognosis guarded. Continue current treatments. Hematology, negative for Homans. Psych, fair mood and affect. Blood pressure 126/81, O2 96 on room air, pulse 72, temp 98.2. Please see further orders. Continue current treatment, await for rehab placement. MMODL / IJN: [id number] /
--- NOTE | 2023-12-11 01:31 | P.PN ---
Subjective Progress Note Date: 12/10/23 Principal diagnosis: reason for follow-up is gram-negative UTI This is a telehealth visit Patient is a 78-year-old female with a past medical history significant for CVA TIA diabetes mellitus hyperlipidemia history of bilateral lower extremity ulcer UTI, patient was brought into the hospital for evaluation of confusion, patient was noticed to have elevated white count and positive UA concerning for UTI. On today's evaluation that is 12/10/2023 patient remains to be afebrile, the patient is breathing comfortably and is currently on 2 L nasal cannula oxygen, the patient denies having any chest pain, did have occasional cough but no sputum production patient denies having nausea no vomiting, however is complaining of lower abdominal pain and did not have any bowel movement. No new labs has been repeated today Objective - Vital Signs Vital signs: Vital Signs Temp 99.6 F 12/10/23 07:38 Pulse 78 12/10/23 08:01 Resp 16 12/10/23 07:38 BP 112/72 12/10/23 07:38 Pulse Ox 92 L 12/10/23 07:51 FiO2 2 12/08/23 07:49 Intake & Output 12/09/23 12/10/23 12/10/23 18:59 06:59 18:59 Intake Total 590 Output Total 325 600 Balance -325 -10 Intake: Oral 590 Output: Urine 325 600 Uretheral (Sheehan) 225 Other: Voiding Method Indwelling Catheter Indwelling Catheter - Exam Elderly female lying in bed in no distress Respiratory system unlabored breathing decreased breath sound the base Abdominal soft, lower abdominal tenderness Extremities no edema feet Exam completed with the help of LDR NURSE - Labs CBC & Chem 7: 12/09/23 09:59 12/09/23 09:59 Labs: Abnormal Lab Results - Last 24 Hours (Table) 12/09/23 12/09/23 12/09/23 Range/Units 09:59 09:59 11:46 MCHC 30.8 L (31.0-37.0) g/dL Carbon Dioxide 35 H (22-30) mmol/L BUN 35 H (7-17) mg/dL Glucose 170 H (74-99) mg/dL POC Glucose (mg/dL) 197 H (70-110) mg/dL Alkaline Phosphatase 142 H (38-126) U/L Albumin 3.4 L (3.5-5.0) g/dL 12/09/23 12/09/23 12/10/23 Range/Units 17:07 20:26 07:38 MCHC (31.0-37.0) g/dL Carbon Dioxide (22-30) mmol/L BUN (7-17) mg/dL Glucose (74-99) mg/dL POC Glucose (mg/dL) 212 H 332 H 143 H (70-110) mg/dL Alkaline Phosphatase (38-126) U/L Albumin (3.5-5.0) g/dL Assessment and Plan (1) Leukocytosis Current Visit: Yes Status: Acute Code(s): D72.829 - ELEVATED WHITE BLOOD CELL COUNT, UNSPECIFIED SNOMED Code(s): 354948353 (2) UTI (urinary tract infection) Current Visit: Yes Status: Acute Code(s): N39.0 - URINARY TRACT INFECTION, SITE NOT SPECIFIED SNOMED Code(s): 77045675 Plan: 1patient presented to hospital with confusion and weakness did have elevated white count, positive UA and urinary symptoms concerning for a symptomatic UTI likely from enteric gram-negative pathogen 2-patient urine culture has been finalized with Pseudomonas that is sensitive to cefepime, patient has received adequate treatment for Pseudomonas. Will discontinue cefepime 3- repeat UA after change of Sheehan catheter is positive and cultures are currently growing Regina glabrata, patient underlying UTI adequately treated, patient has completed course of voriconazole 4-patient has been complaining of abdominal pain also noted to be slightly tender CT of abdominal pelvis did shows evidence of constipation but no evidence of colitis, continue with the stool softener/laxative per admitting team Dictation was produced using [employer] dictation software. please excuse any grammatical, word or spelling errors. Time with Patient: Less than 30
[2023-12-11] MEDS: LEVOTHYROXINE 75 MCG TAB PO SCH (06:09)
[2023-12-11] MEDS: oxyCODONE-APAP 10-325MG 1 EACH TAB PO PRN (06:10)
[2023-12-11 07:38] LABS: Glucose,Whole Blood 152 mg/dL (70-110)
[2023-12-11] MEDS: IPRATROPIUM-ALBUTEROL 3 ML NEB INHALATION SCH ×4 (07:48→18:19)
[2023-12-11] MEDS: MIDODRINE 5 MG TAB PO SCH ×2 (07:50→17:39)
[2023-12-11 08:09] LABS: ALT 32 U/L (4-34); AST 32 U/L (14-36); African American GFR (CKD) 82 (>60 ml/min/1.73 sqM); Albumin 3.3 g/dL (3.5-5.0); Albumin/Globulin Ratio 1.1; Alkaline Phosphatase 142 U/L (38-126); Anion Gap 2 mmol/L; Blood Urea Nitrogen 35 mg/dL (7-17); Calcium 9.4 mg/dL (8.4-10.2); Carbon Dioxide 37 mmol/L (22-30); Chloride 99 mmol/L (98-107); Globulin 3.1 g/dL; Glucose 149 mg/dL (74-99); Non-African American GFR(CKD) 71 (>60 ml/min/1.73 sqM); Potassium 4.9 mmol/L (3.5-5.1); Sodium 138 mmol/L (137-145); Total Bilirubin 0.6 mg/dL (0.2-1.3); Total Protein 6.4 g/dL (6.3-8.2)
[2023-12-11 08:16] LABS: Basophils % (A) 0 %; Eosinophils % (A) 1 %; HGB 12.4 gm/dL (11.4-16.0); Lymphocytes # (A) 1.7 k/uL (1.0-4.8); Lymphocytes % (A) 23 %; MCH 28.8 pg (25.0-35.0); MCHC 32.7 g/dL (31.0-37.0); MCV 88.1 fL (80.0-100.0); Mean Platelet Volume 9.4; Monocytes # (A) 0.4 k/uL (0-1.0); Monocytes % (A) 5 %; Neutrophils # (A) 5.3 k/uL (1.3-7.7); Neutrophils % (A) 70 %; Platelet Count 218 k/uL (150-450); RBC 4.31 m/uL (3.80-5.40); RDW 14.9 % (11.5-15.5); WBC 7.6 k/uL (3.8-10.6)
[2023-12-11] MEDS: PANTOPRAZOLE 40 MG TABLET PO SCH (08:30)
[2023-12-11] MEDS: LACTOBACILLUS ACIDOPHILUS/PECT 1 EACH CAPSULE PO SCH ×2 (08:30→21:42)
[2023-12-11] MEDS: INSULIN DETEMIR (LEVEMIR) 100 UNIT/ML SYR SQ SCH (08:30)
[2023-12-11] MEDS: METOPROLOL SUCCINATE (ER) 25 MG TAB.ER.24H PO SCH (08:30)
[2023-12-11] MEDS: POTASSIUM CHLORIDE ER 10 MEQ TAB.ER.PRT PO SCH (08:30)
[2023-12-11] MEDS: MULTIVITAMINS, THERA 1 EACH TAB PO SCH (08:30)
[2023-12-11] MEDS: CHOLECALCIFEROL 25 MCG (1000 IU) TABLET PO SCH (08:30)
[2023-12-11] MEDS: MAGNESIUM OXIDE 400 MG TAB PO SCH (08:30)
[2023-12-11] MEDS: INSULIN ASPART (NovoLOG) 100 UNIT/ML VIAL SQ SCH ×7 (08:30→21:43)
[2023-12-11] MEDS: ESCITALOPRAM 10 MG TAB PO SCH (08:31)
[2023-12-11] MEDS: predniSONE 5 MG TAB PO SCH (08:31)
[2023-12-11] MEDS: DILTIAZEM ORAL 30 MG TAB PO SCH ×2 (08:31→21:43)
[2023-12-11] MEDS: LIDOCAINE 4% PATCH TOPICAL SCH (08:31)
[2023-12-11] MEDS: NYSTATIN 100,000 UNIT/GM POWD 15 GM TOPICAL SCH ×2 (08:32→21:43)
[2023-12-11 12:10] LABS: Glucose,Whole Blood 221 mg/dL (70-110)
[2023-12-11 17:14] LABS: Glucose,Whole Blood 316 mg/dL (70-110)
[2023-12-11] MEDS: FUROSEMIDE 20 MG TAB PO SCH (17:38)
[2023-12-11 19:50] LABS: Glucose,Whole Blood 260 mg/dL (70-110)
--- NOTE | 2023-12-11 20:33 | PN ---
PROGRESS NOTE OBJECTIVE: VITAL SIGNS: Remains on 98 on 2 L, blood pressure 124/78, temp 97.3, respiratory rate 16 to 18, pulse 70s to 80s, carbon dioxide is 37. CARDIOVASCULAR: S1, S2. LUNGS: Transmitted upper sounds, O2 as mentioned on 2 L. NEUROLOGIC: Alert and oriented x3. HEENT: Ophthalmologic, pupils equal, round, and reactive Sugars are in the 200s to 100s, sodium 139, potassium 4.9, protein 3.3. ASSESSMENT: Regina in the urine. She has been on Diflucan, shows Pseudomonas in urine, on medications for that. Dr. Gunderson prognosis. She will possibly go home tomorrow to her family in [facility] for PT OT. MMODL / IJN: [id number] /
[2023-12-11] MEDS: ATORVASTATIN 10 MG TAB PO SCH (21:42)
[2023-12-11] MEDS: ALPRAZolam 0.5 MG TAB PO PRN (21:43)
[2023-12-11] MEDS: ACETAMINOPHEN TAB 325 MG TAB PO PRN (21:43)
--- NOTE | 2023-12-11 23:36 | P.PN ---
Subjective Progress Note Date: 12/11/23 Principal diagnosis: reason for follow-up is gram-negative UTI This is a telehealth visit Patient is a 78-year-old female with a past medical history significant for CVA TIA diabetes mellitus hyperlipidemia history of bilateral lower extremity ulcer UTI, patient was brought into the hospital for evaluation of confusion, patient was noticed to have elevated white count and positive UA concerning for UTI. On today's evaluation that is 12/11/2023, the patient is afebrile, the patient is breathing comfortably on 2 L nasal cannula oxygen, the patient has been complaining of some cough not bring up any sputum nausea but no vomiting some lower abdominal discomfort and no diarrhea no urinary symptoms. No new labs has been obtained today Objective - Vital Signs Vital signs: Vital Signs Temp 98.4 F 12/11/23 07:39 Pulse 80 12/11/23 08:03 Resp 17 12/11/23 07:39 BP 116/76 12/11/23 07:39 Pulse Ox 98 12/11/23 07:48 FiO2 2 12/08/23 07:49 Intake & Output 12/10/23 12/11/23 12/11/23 18:59 06:59 18:59 Output Total 300 300 Balance -300 -300 Output: Urine 300 300 Other: Voiding Method Indwelling Catheter Indwelling Catheter - Exam Elderly female lying in bed in no distress Respiratory system unlabored breathing decreased breath sound the base Abdominal soft, lower abdominal tenderness Extremities no edema feet Exam completed with the help of WHITEPRINTING MACHINE OPERATOR - Labs CBC & Chem 7: 12/11/23 07:21 12/11/23 07:21 Labs: Abnormal Lab Results - Last 24 Hours (Table) 12/10/23 12/10/23 12/10/23 Range/Units 11:59 17:20 19:56 Carbon Dioxide (22-30) mmol/L BUN (7-17) mg/dL Glucose (74-99) mg/dL POC Glucose (mg/dL) 145 H 248 H 401 H (70-110) mg/dL Alkaline Phosphatase (38-126) U/L Albumin (3.5-5.0) g/dL 12/11/23 12/11/23 Range/Units 07:21 07:37 Carbon Dioxide 37 H (22-30) mmol/L BUN 35 H (7-17) mg/dL Glucose 149 H (74-99) mg/dL POC Glucose (mg/dL) 152 H (70-110) mg/dL Alkaline Phosphatase 142 H (38-126) U/L Albumin 3.3 L (3.5-5.0) g/dL Assessment and Plan (1) Leukocytosis Current Visit: Yes Status: Acute Code(s): D72.829 - ELEVATED WHITE BLOOD CELL COUNT, UNSPECIFIED SNOMED Code(s): 715492621 (2) UTI (urinary tract infection) Current Visit: Yes Status: Acute Code(s): N39.0 - URINARY TRACT INFECTION, SITE NOT SPECIFIED SNOMED Code(s): 60969770 Plan: 1patient presented to hospital with confusion and weakness did have elevated white count, positive UA and urinary symptoms concerning for a symptomatic UTI likely from enteric gram-negative pathogen 2-patient urine culture has been finalized with Pseudomonas that is sensitive to cefepime, patient has received adequate treatment for Pseudomonas. Will discontinue cefepime 3- patient has been complaining of abdominal pain also noted to be slightly tender CT of abdominal pelvis did shows evidence of constipation but no evidence of colitis, continue with the stool softener/laxative per admitting team 4-repeat UA after change of Sheehan catheter is positive and cultures are currently growing Regina glabrata, patient underlying UTI adequately treated, patient has completed course of voriconazole Dictation was produced using [employer] dictation software. please excuse any grammatical, word or spelling errors. Time with Patient: Less than 30
[2023-12-12] MEDS: SODIUM CHLORIDE 0.9% 1,000 ML IV SCH ×2 (04:07→20:06)
[2023-12-12] MEDS: oxyCODONE-APAP 10-325MG 1 EACH TAB PO PRN ×3 (05:52→20:02)
[2023-12-12] MEDS: LEVOTHYROXINE 75 MCG TAB PO SCH (05:52)
[2023-12-12 07:49] LABS: Glucose,Whole Blood 104 mg/dL (70-110)
[2023-12-12] MEDS: IPRATROPIUM-ALBUTEROL 3 ML NEB INHALATION SCH ×4 (07:58→18:32)
[2023-12-12] MEDS: INSULIN ASPART (NovoLOG) 100 UNIT/ML VIAL SQ SCH ×7 (08:01→20:02)
[2023-12-12] MEDS: MIDODRINE 5 MG TAB PO SCH ×2 (08:23→18:03)
[2023-12-12] MEDS: DILTIAZEM ORAL 30 MG TAB PO SCH ×2 (09:01→21:07)
[2023-12-12] MEDS: LIDOCAINE 4% PATCH TOPICAL SCH (09:01)
[2023-12-12] MEDS: MAGNESIUM OXIDE 400 MG TAB PO SCH (09:02)
[2023-12-12] MEDS: LACTOBACILLUS ACIDOPHILUS/PECT 1 EACH CAPSULE PO SCH ×2 (09:02→20:02)
[2023-12-12] MEDS: PANTOPRAZOLE 40 MG TABLET PO SCH (09:02)
[2023-12-12] MEDS: MULTIVITAMINS, THERA 1 EACH TAB PO SCH (09:02)
[2023-12-12] MEDS: predniSONE 5 MG TAB PO SCH (09:02)
[2023-12-12] MEDS: ESCITALOPRAM 10 MG TAB PO SCH (09:02)
[2023-12-12] MEDS: CHOLECALCIFEROL 25 MCG (1000 IU) TABLET PO SCH (09:02)
[2023-12-12] MEDS: METOPROLOL SUCCINATE (ER) 25 MG TAB.ER.24H PO SCH (09:02)
[2023-12-12] MEDS: NYSTATIN 100,000 UNIT/GM POWD 15 GM TOPICAL SCH ×2 (09:03→20:05)
[2023-12-12] MEDS: POTASSIUM CHLORIDE ER 10 MEQ TAB.ER.PRT PO SCH (09:03)
[2023-12-12] MEDS: INSULIN DETEMIR (LEVEMIR) 100 UNIT/ML SYR SQ SCH (09:09)
[2023-12-12 11:47] LABS: Glucose,Whole Blood 228 mg/dL (70-110)
[2023-12-12 17:10] LABS: Glucose,Whole Blood 350 mg/dL (70-110)
[2023-12-12] MEDS: FUROSEMIDE 20 MG TAB PO SCH (18:02)
[2023-12-12 19:43] LABS: Glucose,Whole Blood 338 mg/dL (70-110)
[2023-12-12] MEDS: ATORVASTATIN 10 MG TAB PO SCH (20:02)
[2023-12-12] MEDS: ALPRAZolam 0.5 MG TAB PO PRN (20:02)
--- NOTE | 2023-12-13 06:13 | PN ---
PROGRESS NOTE SUBJECTIVE: 78-year-old white female; history of CVA, TIA, diabetes, dyslipidemia, bilateral lower extremity ulcer, UTI; came in with confusion, UTI, altered mental status. She wants to go home take her home today or tomorrow. OBJECTIVE: VITAL SIGNS: FiO2 is , pulse ox 98, blood pressure 167/76, pulse 80, respiratory rate 16 to 18, temp 98.4. CARDIOVASCULAR: S1, S2. LUNGS: Transmitted upper sounds. EXTREMITIES: No cyanosis, clubbing, edema. LABORATORY DATA: Sodium 138, potassium 4.9, BUN is 35, creatinine 0.8. ASSESSMENT: 1. Leukocytosis. 2. She has Pseudomonas urinary tract infection. 3. She has constipation versus colitis. 4. She has grown Regina on her last urinary tract infection. Complete course of . PLAN: She possibly can go home and see her family. PROGNOSIS: Guarded. MMJOANNL / LANCEN: [id number] /
[2023-12-13] MEDS: LEVOTHYROXINE 75 MCG TAB PO SCH (06:19)
[2023-12-13 07:05] LABS: Glucose,Whole Blood 256 mg/dL (70-110)
[2023-12-13] MEDS: IPRATROPIUM-ALBUTEROL 3 ML NEB INHALATION SCH ×4 (07:49→18:12)
[2023-12-13 08:35] LABS: Basophils % (A) 0 %; Eosinophils % (A) 1 %; HCT 35.3 % (34.0-46.0); Hypochromasia Moderate; Lymphocytes # (A) 1.7 k/uL (1.0-4.8); Lymphocytes % (A) 23 %; MCH 28.6 pg (25.0-35.0); MCHC 31.1 g/dL (31.0-37.0); MCV 91.8 fL (80.0-100.0); Mean Platelet Volume 8.7; Monocytes # (A) 0.4 k/uL (0-1.0); Monocytes % (A) 6 %; Neutrophils % (A) 68 %; Platelet Count 184 k/uL (150-450); RBC 3.85 m/uL (3.80-5.40); RDW 14.9 % (11.5-15.5); WBC 7.3 k/uL (3.8-10.6)
[2023-12-13] MEDS: MIDODRINE 5 MG TAB PO SCH ×2 (08:39→17:42)
[2023-12-13] MEDS: INSULIN ASPART (NovoLOG) 100 UNIT/ML VIAL SQ SCH ×7 (08:49→20:13)
[2023-12-13] MEDS: NYSTATIN 100,000 UNIT/GM POWD 15 GM TOPICAL SCH ×2 (08:49→20:14)
[2023-12-13] MEDS: predniSONE 5 MG TAB PO SCH (08:51)
[2023-12-13] MEDS: DILTIAZEM ORAL 30 MG TAB PO SCH ×2 (08:51→20:14)
[2023-12-13] MEDS: INSULIN DETEMIR (LEVEMIR) 100 UNIT/ML SYR SQ SCH (08:51)
[2023-12-13] MEDS: MAGNESIUM OXIDE 400 MG TAB PO SCH (08:51)
[2023-12-13] MEDS: MULTIVITAMINS, THERA 1 EACH TAB PO SCH (08:51)
[2023-12-13] MEDS: LIDOCAINE 4% PATCH TOPICAL SCH ×2 (08:51→16:19)
[2023-12-13] MEDS: LACTOBACILLUS ACIDOPHILUS/PECT 1 EACH CAPSULE PO SCH ×2 (08:51→20:13)
[2023-12-13] MEDS: POTASSIUM CHLORIDE ER 10 MEQ TAB.ER.PRT PO SCH (08:52)
[2023-12-13] MEDS: PANTOPRAZOLE 40 MG TABLET PO SCH (08:52)
[2023-12-13] MEDS: ESCITALOPRAM 10 MG TAB PO SCH (08:52)
[2023-12-13] MEDS: METOPROLOL SUCCINATE (ER) 25 MG TAB.ER.24H PO SCH (08:52)
[2023-12-13] MEDS: CHOLECALCIFEROL 25 MCG (1000 IU) TABLET PO SCH (08:52)
[2023-12-13 09:00] LABS: ALT 28 U/L (4-34); AST 26 U/L (14-36); African American GFR (CKD) >90 (>60 ml/min/1.73 sqM); Albumin 3.1 g/dL (3.5-5.0); Albumin/Globulin Ratio 1.1; Alkaline Phosphatase 114 U/L (38-126); Anion Gap 3 mmol/L; Blood Urea Nitrogen 30 mg/dL (7-17); Calcium 9.5 mg/dL (8.4-10.2); Carbon Dioxide 34 mmol/L (22-30); Chloride 100 mmol/L (98-107); Globulin 2.7 g/dL; Glucose 212 mg/dL (74-99); Non-African American GFR(CKD) 84 (>60 ml/min/1.73 sqM); Potassium 4.5 mmol/L (3.5-5.1); Sodium 137 mmol/L (137-145); Total Bilirubin 0.4 mg/dL (0.2-1.3); Total Protein 5.8 g/dL (6.3-8.2)
[2023-12-13] MEDS ORDERED: ZINC OXIDE PASTE (Z-GUARD) 1 APPLIC TOPICAL PRN (09:33)
[2023-12-13] MEDS: ACETAMINOPHEN TAB 325 MG TAB PO PRN ×2 (09:38→20:13)
[2023-12-13] MEDS: BENZONATATE 100 MG CAP PO PRN ×2 (10:04→20:14)
[2023-12-13 11:51] LABS: Glucose,Whole Blood 214 mg/dL (70-110)
[2023-12-13] MEDS ORDERED: SCOPOLAMINE 1 MG/72 HR PATCH TRANSDERM SCH (13:00)
--- NOTE | 2023-12-13 14:01 | PN ---
PROGRESS NOTE SUBJECTIVE: This is a 78-year-old white female, complains of pain in her right knee. Sugars are mid 200s, O2 of 92% on 2 L, and pulse 84. OBJECTIVE: CARDIOVASCULAR: S1 and S2. LUNGS: Clear. GI: Soft. HEMATOLOGY: Negative Homans. PSYCH: Fair mood and affect. NEUROLOGIC: Alert and oriented x3. PLAN: Will be discharged home today. I will do another chest x-ray and do knee x-ray. Labs are normal, stable. Prognosis guarded. She will go to her son's house from PT/OT. KENNA / LANCEN: [id number] /
--- NOTE | 2023-12-13 14:12 | XR ---
EXAMINATION TYPE: XR chest 1V portable DATE OF EXAM: 12/13/2023 COMPARISON: 11/24/2023 INDICATION: Ingestion TECHNIQUE: Single frontal view of the chest is obtained. FINDINGS: The heart size is normal. The pulmonary vasculature is normal. The lungs are clear. IMPRESSION: 1. No acute pulmonary process.
[2023-12-13 17:13] LABS: Glucose,Whole Blood 284 mg/dL (70-110)
[2023-12-13] MEDS: FUROSEMIDE 20 MG TAB PO SCH (17:42)
[2023-12-13 19:55] LABS: Glucose,Whole Blood 278 mg/dL (70-110)
[2023-12-13] MEDS: SODIUM CHLORIDE 0.9% 1,000 ML IV SCH (20:14)
[2023-12-13] MEDS: ATORVASTATIN 10 MG TAB PO SCH (20:14)
[2023-12-13] MEDS: ALPRAZolam 0.5 MG TAB PO PRN (20:14)
[2023-12-14] MEDS: LEVOTHYROXINE 75 MCG TAB PO SCH (05:35)
[2023-12-14] MEDS: ACETAMINOPHEN TAB 325 MG TAB PO PRN (05:35)
[2023-12-14 07:24] LABS: Glucose,Whole Blood 198 mg/dL (70-110)
[2023-12-14] MEDS: IPRATROPIUM-ALBUTEROL 3 ML NEB INHALATION SCH ×4 (07:52→20:08)
[2023-12-14] MEDS: MIDODRINE 5 MG TAB PO SCH ×2 (08:31→18:04)
[2023-12-14] MEDS: INSULIN DETEMIR (LEVEMIR) 100 UNIT/ML SYR SQ SCH (08:38)
[2023-12-14] MEDS: INSULIN ASPART (NovoLOG) 100 UNIT/ML VIAL SQ SCH ×7 (08:38→21:02)
[2023-12-14] MEDS: PANTOPRAZOLE 40 MG TABLET PO SCH (08:39)
[2023-12-14] MEDS: MULTIVITAMINS, THERA 1 EACH TAB PO SCH (08:39)
[2023-12-14] MEDS: LACTOBACILLUS ACIDOPHILUS/PECT 1 EACH CAPSULE PO SCH ×2 (08:39→21:00)
[2023-12-14] MEDS: POTASSIUM CHLORIDE ER 10 MEQ TAB.ER.PRT PO SCH (08:39)
[2023-12-14] MEDS: MAGNESIUM OXIDE 400 MG TAB PO SCH (08:39)
[2023-12-14] MEDS: CHOLECALCIFEROL 25 MCG (1000 IU) TABLET PO SCH (08:39)
[2023-12-14] MEDS: predniSONE 5 MG TAB PO SCH (08:39)
[2023-12-14] MEDS: BENZONATATE 100 MG CAP PO PRN (08:39)
[2023-12-14] MEDS: ESCITALOPRAM 10 MG TAB PO SCH (08:39)
[2023-12-14] MEDS: DILTIAZEM ORAL 30 MG TAB PO SCH ×2 (08:39→21:00)
[2023-12-14] MEDS: METOPROLOL SUCCINATE (ER) 25 MG TAB.ER.24H PO SCH (08:40)
[2023-12-14] MEDS: LIDOCAINE 4% PATCH TOPICAL SCH ×2 (08:40)
[2023-12-14] MEDS: oxyCODONE-APAP 10-325MG 1 EACH TAB PO PRN ×2 (09:08→21:00)
[2023-12-14] MEDS: NYSTATIN 100,000 UNIT/GM POWD 15 GM TOPICAL SCH ×2 (11:47→21:03)
[2023-12-14 11:52] LABS: Glucose,Whole Blood 313 mg/dL (70-110)
[2023-12-14 17:16] LABS: Glucose,Whole Blood 241 mg/dL (70-110)
[2023-12-14] MEDS: FUROSEMIDE 20 MG TAB PO SCH (18:04)
[2023-12-14 20:24] LABS: Glucose,Whole Blood 406 mg/dL (70-110)
[2023-12-14] MEDS: ATORVASTATIN 10 MG TAB PO SCH (21:00)
--- NOTE | 2023-12-14 21:46 | PN ---
PROGRESS NOTE SUBJECTIVE: This is a 78-year-old white female, stable for discharge to be home with the family. O2 94 on room air. OBJECTIVE: VITAL SIGNS: Blood pressure 117/78, temp 98, pulse 80s to 90s, respiratory rate 16 to 18. CARDIOVASCULAR: S1, S2. LUNGS: Transmitted upper sounds. GI: Soft. HEMATOLOGY: Negative for Homans. PSYCH: Fair mood and affect. She has been with 200s. Continue current treatment for multiple issues. Osteoarthritis, Pulmonary hypertension, COPD, diabetes mellitus, altered mental status, recurrent UTI, pain syndrome, neuropathy, UTIs. Prognosis guarded. Possible discharge home soon as she has cleared. All her meds were called in. MMODL / IJN: [id number] /
[2023-12-14] MEDS: SODIUM CHLORIDE 0.9% 1,000 ML IV SCH (22:29)
[2023-12-15] MEDS: LEVOTHYROXINE 75 MCG TAB PO SCH (06:08)
[2023-12-15 07:15] LABS: Glucose,Whole Blood 143 mg/dL (70-110)
[2023-12-15] MEDS: INSULIN ASPART (NovoLOG) 100 UNIT/ML VIAL SQ SCH ×4 (07:23→13:11)
[2023-12-15] MEDS: MIDODRINE 5 MG TAB PO SCH (08:48)
[2023-12-15] MEDS: INSULIN DETEMIR (LEVEMIR) 100 UNIT/ML SYR SQ SCH (08:49)
[2023-12-15] MEDS: MULTIVITAMINS, THERA 1 EACH TAB PO SCH (08:49)
[2023-12-15] MEDS: LIDOCAINE 4% PATCH TOPICAL SCH ×2 (08:49→08:51)
[2023-12-15] MEDS: CHOLECALCIFEROL 25 MCG (1000 IU) TABLET PO SCH (08:49)
[2023-12-15] MEDS: DILTIAZEM ORAL 30 MG TAB PO SCH (08:50)
[2023-12-15] MEDS: METOPROLOL SUCCINATE (ER) 25 MG TAB.ER.24H PO SCH (08:50)
[2023-12-15] MEDS: POTASSIUM CHLORIDE ER 10 MEQ TAB.ER.PRT PO SCH (08:50)
[2023-12-15] MEDS: ESCITALOPRAM 10 MG TAB PO SCH (08:50)
[2023-12-15] MEDS: PANTOPRAZOLE 40 MG TABLET PO SCH (08:50)
[2023-12-15] MEDS: LACTOBACILLUS ACIDOPHILUS/PECT 1 EACH CAPSULE PO SCH (08:50)
[2023-12-15] MEDS: MAGNESIUM OXIDE 400 MG TAB PO SCH (08:50)
[2023-12-15] MEDS: predniSONE 5 MG TAB PO SCH (08:50)
[2023-12-15] MEDS: NYSTATIN 100,000 UNIT/GM POWD 15 GM TOPICAL SCH (08:51)
[2023-12-15] MEDS: IPRATROPIUM-ALBUTEROL 3 ML NEB INHALATION SCH ×2 (09:37→12:42)
[2023-12-15 11:58] LABS: Glucose,Whole Blood 279 mg/dL (70-110)
[2023-12-15 14:05] VITALS: BP 113/74; PULSE 82; RESP 18; TEMP 98.8
== END 2023-12-15 14:20 | disposition home or self-care (01) | DRG 698 ==
LOC: EC 18:10 → 4SSUR 22:39 → 5NMEDONC 11-24 16:33 → 6NMEDSUR 11-26 01:31
PROVIDERS: ADMIT Family Medicine; ATTEND Family Medicine
PROC: F00ZHZZ Bedside Swallowing and Oral Function Assessment (ICD-10-PCS; principal; 2023-12-10)
DX: T83.511A Infection and inflammatory reaction due to indwelling urethral catheter, initial encounter (principal); A41.52 Sepsis due to Pseudomonas; G93.41 Metabolic encephalopathy; J15.69 Pneumonia due to other Gram-negative bacteria; D66 Hereditary factor VIII deficiency; J96.01 Acute respiratory failure with hypoxia; B37.7 Candidal sepsis; B37.49 Other urogenital candidiasis; J44.0 Chronic obstructive pulmonary disease with (acute) lower respiratory infection; I69.354 Hemiplegia and hemiparesis following cerebral infarction affecting left non-dominant side; I50.42 Chronic combined systolic (congestive) and diastolic (congestive) heart failure; L97.919 Non-pressure chronic ulcer of unspecified part of right lower leg with unspecified severity; M48.56XA Collapsed vertebra, not elsewhere classified, lumbar region, initial encounter for fracture; L97.929 Non-pressure chronic ulcer of unspecified part of left lower leg with unspecified severity; I95.1 Orthostatic hypotension; N30.90 Cystitis, unspecified without hematuria; Y84.6 Urinary catheterization as the cause of abnormal reaction of the patient, or of later complication, without mention of misadventure at the time of the procedure; Y95 Nosocomial condition; L89.612 Pressure ulcer of right heel, stage 2; E11.42 Type 2 diabetes mellitus with diabetic polyneuropathy; E11.51 Type 2 diabetes mellitus with diabetic peripheral angiopathy without gangrene; Z87.19 Personal history of other diseases of the digestive system; G89.29 Other chronic pain; M54.9 Dorsalgia, unspecified; F32.A Depression, unspecified; F41.9 Anxiety disorder, unspecified; G25.81 Restless legs syndrome; I11.0 Hypertensive heart disease with heart failure; E03.9 Hypothyroidism, unspecified; Z79.890 Hormone replacement therapy; M79.7 Fibromyalgia; M19.90 Unspecified osteoarthritis, unspecified site; N39.498 Other specified urinary incontinence; I25.10 Atherosclerotic heart disease of native coronary artery without angina pectoris; K21.9 Gastro-esophageal reflux disease without esophagitis; M21.372 Foot drop, left foot; M21.371 Foot drop, right foot; I48.91 Unspecified atrial fibrillation; M48.061 Spinal stenosis, lumbar region without neurogenic claudication; K59.00 Constipation, unspecified; N28.1 Cyst of kidney, acquired; Z79.01 Long term (current) use of anticoagulants; Z79.4 Long term (current) use of insulin; Z79.84 Long term (current) use of oral hypoglycemic drugs; Z79.899 Other long term (current) drug therapy; Z85.850 Personal history of malignant neoplasm of thyroid; Z86.19 Personal history of other infectious and parasitic diseases; Z87.440 Personal history of urinary (tract) infections; Z90.710 Acquired absence of both cervix and uterus; Z87.442 Personal history of urinary calculi; Z96.651 Presence of right artificial knee joint; Z86.14 Personal history of Methicillin resistant Staphylococcus aureus infection; Z91.048 Other nonmedicinal substance allergy status
CPT/HCPCS: 36415; 70450; 71045; 71046; 71250; 74177; 74230; 80048; 80053; 81001; 83036; 83605; 85025; 85610; 85730; 86140; 87040; 87077; 87086; 87186; 87449; 87636; 93005; 94640; 94760; 96365; 96366; 96367; 96375; 99285